=== PATIENT | male | born 1935 | race Caucasian/White ===

== ENCOUNTER 2016-06-12 08:55 | Outpatient (RCR) | payer MEDICARE, OTHER ==
[~2016-06-12 08:55] MED LIST: ACHD5005 PO; ALBU8.5H2 IH; AMIO200T10 PO; AMLO10TA82 PO; ASP81CT PO; ASPI-983 PO; ATOR40TA PO; ATOR40TA70 PO; BNZ40T PO; CALC1TAB PO; CITA10SO4 PO; CITA10TA70 PO; CLD600T PO; COUMADIN; DABI150C2 PO; DCC240C PO; DEXL60CA5 PO; DILT180C PO; DILT240C PO; DOCU-143 PO; DOCU100C PO; DOXY100C2 PO; FERR325C PO; FERR325T24 PO; FURO40TA4 PO; GFN600TCR PO; HCTZ12.5T PO; HYDR-3812 PO; LANS30CA PO; METO100T2 PO; MULT-850 PO; NTR.4SL SL; OMEG1CAP58 PO; OMG1KC PO; PANT40TA3 PO; PITA2TAB2 PO; PNT40TEC PO; POTA10CA43 PO; POTA20TA15 PO; SCR1T1 PO; SPIR25TA3 PO; WARF1TAB10 PO; WARF2.5T10 PO; WARF2.5T8 PO; WRF2.5T PO; WRF5T PO
[2016-06-12 09:17] LABS: BASOPHILS % (AUTO) 0 % (0-10); EOSINOPHILS # (AUTO) 0.2 10^3/uL (0.0-0.3); EOSINOPHILS % (AUTO) 4 % (0-10); LYMPHOCYTES % (AUTO) 18 % (12-44); MEAN CORPUSCULAR HEMOGLOBIN 32 PG (25-34); MEAN CORPUSCULAR HGB CONC 34 G/DL (32-36); MEAN CORPUSCULAR VOLUME 94 FL (80-99); MEAN PLATELET VOLUME 11.9 FL (7.4-10.4); MONOCYTES # (AUTO) 0.8 X 10^3 (0.0-1.0); MONOCYTES % (AUTO) 14 % (0-12); NEUTROPHILS # (AUTO) 3.5 X 10^3 (1.8-7.8); NEUTROPHILS % (AUTO) 64 % (42-75); PLATELET COUNT 110 10^3/uL (130-400); RED BLOOD COUNT 4.19 10^6/uL (4.35-5.85); RED CELL DISTRIBUTION WIDTH 14.5 % (10.0-14.5); WHITE BLOOD COUNT 5.4 10^3/uL (4.3-11.0)
[2016-06-12 10:01] LABS: BILIRUBIN,TOTAL 1.3 MG/DL (0.1-1.0); CALCIUM 9.5 MG/DL (8.5-10.1); CREATININE SERUM 1.42 MG/DL (0.60-1.30); TOTAL PROTEIN 6.6 G/DL (6.4-8.2)
[2016-06-12 12:09] LABS: %SAT TOTAL IRON BINDING CAPIC 47 % (15-50); TIBC 297 ug/dL (280-380)
[2016-06-13 06:48] LABS: UIBC 157 ug/dL (55-450)
[2016-06-13 06:49] LABS: FERRITIN 197 ng/mL (25-300)
== END 2016-09-10 | disposition home or self-care (01) ==
LOC: ONC 08:55
PROVIDERS: ATTEND Internal Medicine Hematology & Oncology
DX: D69.6 Thrombocytopenia, unspecified (principal); D50.9 Iron deficiency anemia, unspecified; I12.9 Hypertensive chronic kidney disease with stage 1 through stage 4 chronic kidney disease, or unspecified chronic kidney disease; N18.9 Chronic kidney disease, unspecified; I25.10 Atherosclerotic heart disease of native coronary artery without angina pectoris; E78.5 Hyperlipidemia, unspecified; I48.91 Unspecified atrial fibrillation; Z79.01 Long term (current) use of anticoagulants; Z79.899 Other long term (current) drug therapy
CPT/HCPCS: 36415; 80053; 82728; 83540; 83615; 85025; 99213

== ENCOUNTER 2016-12-12 13:35 | Outpatient (RCR) | payer OTHER, MEDICARE ==
[2016-10-15 11:33] LABS: INR 2.1 (0.8-1.4); PROTHROMBIN TIME PATIENT 23.2 SEC (12.2-14.7)
[2016-11-12 12:40] LABS: INR 2.3 (0.8-1.4); PROTHROMBIN TIME PATIENT 25.3 SEC (12.2-14.7)
[2016-12-12 13:52] LABS: INR 2.6 (0.8-1.4); PROTHROMBIN TIME PATIENT 27.9 SEC (12.2-14.7)
== END 2017-01-13 | disposition home or self-care (01) ==
LOC: LAB 13:35
PROVIDERS: ATTEND Internal Medicine Cardiovascular Disease
DX: I48.91 Unspecified atrial fibrillation (principal); Z79.01 Long term (current) use of anticoagulants
CPT/HCPCS: 36415; 85610

== ENCOUNTER 2017-02-12 10:43 | Outpatient (RCR) | payer OTHER, MEDICARE ==
[2016-12-10 08:48] LABS: BASOPHILS % (AUTO) 0 % (0-10); EOSINOPHILS # (AUTO) 0.2 10^3/uL (0.0-0.3); EOSINOPHILS % (AUTO) 3 % (0-10); LYMPHOCYTES # (AUTO) 1.1 X 10^3 (1.0-4.0); LYMPHOCYTES % (AUTO) 18 % (12-44); MEAN CORPUSCULAR HEMOGLOBIN 32 PG (25-34); MEAN CORPUSCULAR HGB CONC 34 G/DL (32-36); MEAN CORPUSCULAR VOLUME 96 FL (80-99); MEAN PLATELET VOLUME 11.5 FL (7.4-10.4); MONOCYTES # (AUTO) 0.8 X 10^3 (0.0-1.0); MONOCYTES % (AUTO) 14 % (0-12); NEUTROPHILS # (AUTO) 3.8 X 10^3 (1.8-7.8); NEUTROPHILS % (AUTO) 64 % (42-75); PLATELET COUNT 101 10^3/uL (130-400); RED BLOOD COUNT 4.05 10^6/uL (4.35-5.85); RED CELL DISTRIBUTION WIDTH 13.5 % (10.0-14.5); WHITE BLOOD COUNT 5.8 10^3/uL (4.3-11.0)
[2017-01-14 14:38] LABS: INR 2.2 (0.8-1.4); PROTHROMBIN TIME PATIENT 23.9 SEC (12.2-14.7)
[2017-02-12 11:03] LABS: INR 2.3 (0.8-1.4); PROTHROMBIN TIME PATIENT 24.7 SEC (12.2-14.7)
== END 2017-03-10 | disposition home or self-care (01) ==
LOC: LAB 10:43
PROVIDERS: ATTEND Internal Medicine Hematology & Oncology
DX: D69.6 Thrombocytopenia, unspecified (principal); D50.9 Iron deficiency anemia, unspecified; I12.9 Hypertensive chronic kidney disease with stage 1 through stage 4 chronic kidney disease, or unspecified chronic kidney disease; N18.9 Chronic kidney disease, unspecified; I25.10 Atherosclerotic heart disease of native coronary artery without angina pectoris; E78.5 Hyperlipidemia, unspecified; I48.91 Unspecified atrial fibrillation; Z79.01 Long term (current) use of anticoagulants; Z79.899 Other long term (current) drug therapy
CPT/HCPCS: 36415; 85025; 85610

== ENCOUNTER 2017-05-18 08:27 | Outpatient (RCR) | payer MEDICARE, OTHER ==
[2017-03-16 12:34] LABS: INR 2.5 (0.8-1.4); PROTHROMBIN TIME PATIENT 26.8 SEC (12.2-14.7)
[2017-04-15 12:40] LABS: INR 1.9 (0.8-1.4); PROTHROMBIN TIME PATIENT 21.9 SEC (12.2-14.7)
[2017-05-18 08:51] LABS: INR 2.2 (0.8-1.4); PROTHROMBIN TIME PATIENT 24.3 SEC (12.2-14.7)
== END 2017-05-30 | disposition home or self-care (01) ==
LOC: LAB 08:27
PROVIDERS: ATTEND Nurse Practitioner Family
DX: I48.0 Paroxysmal atrial fibrillation (principal); Z79.01 Long term (current) use of anticoagulants
CPT/HCPCS: 36415; 85610

== ENCOUNTER → 2017-05-18 | Outpatient (CLI) | payer MEDICARE, OTHER ==
[2017-05-18 09:09] LABS: BASOPHILS % (AUTO) 0 % (0-10); EOSINOPHILS # (AUTO) 0.2 10^3/uL (0.0-0.3); EOSINOPHILS % (AUTO) 3 % (0-10); LYMPHOCYTES # (AUTO) 1.1 X 10^3 (1.0-4.0); LYMPHOCYTES % (AUTO) 18 % (12-44); MEAN CORPUSCULAR HEMOGLOBIN 33 PG (25-34); MEAN CORPUSCULAR HGB CONC 34 G/DL (32-36); MEAN CORPUSCULAR VOLUME 97 FL (80-99); MEAN PLATELET VOLUME 12.2 FL (7.4-10.4); MONOCYTES # (AUTO) 0.7 X 10^3 (0.0-1.0); MONOCYTES % (AUTO) 12 % (0-12); NEUTROPHILS % (AUTO) 67 % (42-75); PLATELET COUNT 105 10^3/uL (130-400); RED BLOOD COUNT 4.12 10^6/uL (4.35-5.85); RED CELL DISTRIBUTION WIDTH 13.3 % (10.0-14.5)
[2017-05-18 09:22] LABS: ALBUMIN 3.9 GM/DL (3.2-4.5); BILIRUBIN,TOTAL 0.9 MG/DL (0.1-1.0); CREATININE SERUM 1.19 MG/DL (0.60-1.30); MAGNESIUM 2.2 MG/DL (1.8-2.4); POTASSIUM 4.3 MMOL/L (3.6-5.0); TOTAL PROTEIN 6.7 GM/DL (6.4-8.2)
== END ==
LOC: LAB 08:52
PROVIDERS: ATTEND Internal Medicine Cardiovascular Disease
DX: E78.4 Other hyperlipidemia (principal); I65.23 Occlusion and stenosis of bilateral carotid arteries; I12.9 Hypertensive chronic kidney disease with stage 1 through stage 4 chronic kidney disease, or unspecified chronic kidney disease; N18.2 Chronic kidney disease, stage 2 (mild); I48.0 Paroxysmal atrial fibrillation; I49.5 Sick sinus syndrome; Z79.01 Long term (current) use of anticoagulants
CPT/HCPCS: 36415; 80053; 80061; 83735; 85025

== ENCOUNTER 2017-07-15 11:44 | Outpatient (RCR) | payer MEDICARE, OTHER ==
[2017-06-18 09:44] LABS: BASOPHILS % (AUTO) 0 % (0-10); EOSINOPHILS # (AUTO) 0.2 10^3/uL (0.0-0.3); EOSINOPHILS % (AUTO) 3 % (0-10); HEMATOCRIT 40 % (40-54); HEMOGLOBIN 13.3 G/DL (13.3-17.7); LYMPHOCYTES # (AUTO) 1.1 X 10^3 (1.0-4.0); LYMPHOCYTES % (AUTO) 20 % (12-44); MEAN CORPUSCULAR HEMOGLOBIN 33 PG (25-34); MEAN CORPUSCULAR HGB CONC 34 G/DL (32-36); MEAN CORPUSCULAR VOLUME 97 FL (80-99); MEAN PLATELET VOLUME 12.7 FL (7.4-10.4); MONOCYTES # (AUTO) 0.7 X 10^3 (0.0-1.0); MONOCYTES % (AUTO) 12 % (0-12); NEUTROPHILS # (AUTO) 3.7 X 10^3 (1.8-7.8); NEUTROPHILS % (AUTO) 65 % (42-75); PLATELET COUNT 124 10^3/uL (130-400); RED BLOOD COUNT 4.08 10^6/uL (4.35-5.85); RED CELL DISTRIBUTION WIDTH 13.2 % (10.0-14.5); WHITE BLOOD COUNT 5.7 10^3/uL (4.3-11.0)
[2017-06-18 10:01] LABS: CALCIUM 9.6 MG/DL (8.5-10.1); CREATININE SERUM 1.25 MG/DL (0.60-1.30); POTASSIUM 4.5 MMOL/L (3.6-5.0); TOTAL PROTEIN 7.4 GM/DL (6.4-8.2)
[~2017-07-15 11:44] MED LIST changes: -HYDR-3812 PO; +METO100T12 PO
[2017-07-15 12:03] LABS: INR 1.8 (0.8-1.4); PROTHROMBIN TIME PATIENT 20.8 SEC (12.2-14.7)
== END 2017-09-16 | disposition home or self-care (01) ==
LOC: ONC 11:44
PROVIDERS: ATTEND Internal Medicine Hematology & Oncology
DX: D69.6 Thrombocytopenia, unspecified (principal); D50.9 Iron deficiency anemia, unspecified; I12.9 Hypertensive chronic kidney disease with stage 1 through stage 4 chronic kidney disease, or unspecified chronic kidney disease; N18.9 Chronic kidney disease, unspecified; I25.10 Atherosclerotic heart disease of native coronary artery without angina pectoris; E78.5 Hyperlipidemia, unspecified; I48.91 Unspecified atrial fibrillation; Z79.01 Long term (current) use of anticoagulants; Z79.899 Other long term (current) drug therapy
CPT/HCPCS: 36415; 80053; 85025; 85610; 99213

== ENCOUNTER 2017-08-14 12:26 | Outpatient (RCR) | payer MEDICARE, OTHER ==
[2017-06-15 12:10] LABS: INR 2.6 (0.8-1.4); PROTHROMBIN TIME PATIENT 27.7 SEC (12.2-14.7)
[2017-08-14 13:07] LABS: INR 2.4 (0.8-1.4); PROTHROMBIN TIME PATIENT 26.3 SEC (12.2-14.7)
== END 2017-09-13 | disposition home or self-care (01) ==
LOC: LAB 12:26
PROVIDERS: ATTEND Nurse Practitioner Family
DX: I48.91 Unspecified atrial fibrillation (principal); Z79.01 Long term (current) use of anticoagulants
CPT/HCPCS: 36415; 85610

== ENCOUNTER 2017-11-13 12:34 | Outpatient (RCR) | payer MEDICARE, OTHER ==
[2017-09-16 15:05] LABS: INR 2.2 (0.8-1.4); PROTHROMBIN TIME PATIENT 24.4 SEC (12.2-14.7)
[2017-10-15 15:01] LABS: INR 2.3 (0.8-1.4); PROTHROMBIN TIME PATIENT 25.4 SEC (12.2-14.7)
[2017-10-22 11:09] LABS: INR 2.4 (0.8-1.4); PROTHROMBIN TIME PATIENT 26.3 SEC (12.2-14.7)
[~2017-11-13 12:34] MED LIST changes: +SPIR25TA5 PO
[2017-11-13 12:59] LABS: INR 1.9 (0.8-1.4); PROTHROMBIN TIME PATIENT 21.9 SEC (12.2-14.7)
== END 2017-12-13 | disposition home or self-care (01) ==
LOC: LAB 12:34
PROVIDERS: ATTEND Nurse Practitioner Family
DX: I48.91 Unspecified atrial fibrillation (principal); Z79.01 Long term (current) use of anticoagulants
CPT/HCPCS: 36415; 85610

== ENCOUNTER → 2017-11-13 | Outpatient (CLI) | payer MEDICARE, OTHER ==
[2017-11-13 12:50] LABS: BASOPHILS % (AUTO) 0 % (0-10); EOSINOPHILS # (AUTO) 0.2 10^3/uL (0.0-0.3); EOSINOPHILS % (AUTO) 3 % (0-10); HEMATOCRIT 40 % (40-54); HEMOGLOBIN 13.6 G/DL (13.3-17.7); LYMPHOCYTES # (AUTO) 1.2 X 10^3 (1.0-4.0); LYMPHOCYTES % (AUTO) 19 % (12-44); MEAN CORPUSCULAR HEMOGLOBIN 33 PG (25-34); MEAN CORPUSCULAR HGB CONC 34 G/DL (32-36); MEAN CORPUSCULAR VOLUME 96 FL (80-99); MEAN PLATELET VOLUME 12.1 FL (7.4-10.4); MONOCYTES # (AUTO) 0.8 X 10^3 (0.0-1.0); MONOCYTES % (AUTO) 13 % (0-12); NEUTROPHILS % (AUTO) 65 % (42-75); PLATELET COUNT 124 10^3/uL (130-400); RED BLOOD COUNT 4.16 10^6/uL (4.35-5.85); RED CELL DISTRIBUTION WIDTH 12.7 % (10.0-14.5); WHITE BLOOD COUNT 6.3 10^3/uL (4.3-11.0)
[2017-11-13 13:07] LABS: ALBUMIN 4.2 GM/DL (3.2-4.5); BILIRUBIN,TOTAL 1.4 MG/DL (0.1-1.0); CALCIUM 9.9 MG/DL (8.5-10.1); CREATININE SERUM 1.48 MG/DL (0.60-1.30); MAGNESIUM 1.6 MG/DL (1.8-2.4); POTASSIUM 4.4 MMOL/L (3.6-5.0); TOTAL PROTEIN 7.4 GM/DL (6.4-8.2)
[2017-11-13 13:26] LABS: ERYTHROCYTE SEDIMENTATION RATE 16 MM/HR (0-30)
== END ==
LOC: LAB 12:24
PROVIDERS: ATTEND Internal Medicine Cardiovascular Disease
DX: I25.10 Atherosclerotic heart disease of native coronary artery without angina pectoris (principal); I65.29 Occlusion and stenosis of unspecified carotid artery; I12.9 Hypertensive chronic kidney disease with stage 1 through stage 4 chronic kidney disease, or unspecified chronic kidney disease; N18.2 Chronic kidney disease, stage 2 (mild); E78.5 Hyperlipidemia, unspecified; E66.8 Other obesity; I48.0 Paroxysmal atrial fibrillation; Z95.0 Presence of cardiac pacemaker; Z79.01 Long term (current) use of anticoagulants
CPT/HCPCS: 36415; 80053; 83735; 84443; 85025; 85652

== ENCOUNTER → 2017-11-24 | Outpatient (CLI) | payer MEDICARE, OTHER ==
[~2017-11-24] MED LIST changes: -SPIR25TA5 PO
[2017-11-24 14:54] LABS: PROTHROMBIN TIME PATIENT 22.9 SEC (12.2-14.7)
[2017-11-24 14:57] LABS: CALCIUM 9.6 MG/DL (8.5-10.1); CREATININE SERUM 1.39 MG/DL (0.60-1.30); MAGNESIUM 2.3 MG/DL (1.8-2.4); POTASSIUM 4.5 MMOL/L (3.6-5.0)
== END ==
LOC: LAB 14:15
PROVIDERS: ATTEND Internal Medicine Cardiovascular Disease
DX: I12.9 Hypertensive chronic kidney disease with stage 1 through stage 4 chronic kidney disease, or unspecified chronic kidney disease (principal); N18.2 Chronic kidney disease, stage 2 (mild); I48.0 Paroxysmal atrial fibrillation; Z79.01 Long term (current) use of anticoagulants
CPT/HCPCS: 36415; 80048; 83735; 85610

== ENCOUNTER 2017-12-28 11:46 | Outpatient (RCR) | payer MEDICARE, OTHER | END 2017-12-30 | disposition home or self-care (01) | LOC: CR3 11:46 | PROVIDERS: ATTEND Family Medicine | DX: Z29.8 Encounter for other specified prophylactic measures (principal) ==

== ENCOUNTER 2018-01-29 17:38 | Outpatient (RCR) | payer MEDICARE, OTHER | END 2018-01-31 | disposition home or self-care (01) | LOC: CR3 17:38 | PROVIDERS: ATTEND Family Medicine | DX: Z29.8 Encounter for other specified prophylactic measures (principal) ==

== ENCOUNTER 2018-02-12 11:07 | Outpatient (RCR) | payer MEDICARE, OTHER ==
[2017-12-14 11:50] LABS: INR 1.9 (0.8-1.4); PROTHROMBIN TIME PATIENT 22.1 SEC (12.2-14.7)
[2018-01-13 11:21] LABS: INR 2.1 (0.8-1.4); PROTHROMBIN TIME PATIENT 23.2 SEC (12.2-14.7)
[~2018-02-12 11:07] MED LIST changes: +SPIR25TA5 PO
[2018-02-12 11:28] LABS: INR 2.2 (0.8-1.4); PROTHROMBIN TIME PATIENT 24.7 SEC (12.2-14.7)
== END 2018-03-14 | disposition home or self-care (01) ==
LOC: LAB 11:07
PROVIDERS: ATTEND Nurse Practitioner Family
DX: Z51.81 Encounter for therapeutic drug level monitoring (principal); I48.91 Unspecified atrial fibrillation; Z79.01 Long term (current) use of anticoagulants
CPT/HCPCS: 36415; 85610

== ENCOUNTER 2018-03-01 10:00 | Outpatient (RCR) | payer MEDICARE, OTHER | END 2018-03-03 | disposition home or self-care (01) | LOC: CR3 10:00 | PROVIDERS: ATTEND Family Medicine | DX: Z29.8 Encounter for other specified prophylactic measures (principal) ==

== ENCOUNTER 2018-03-31 10:44 | Outpatient (RCR) | payer MEDICARE, OTHER | END 2018-04-04 | disposition home or self-care (01) | LOC: CR3 10:44 | PROVIDERS: ATTEND Family Medicine | DX: Z29.8 Encounter for other specified prophylactic measures (principal) ==

== ENCOUNTER → 2018-05-05 | Outpatient (RCR) | payer MEDICARE, OTHER | END | disposition home or self-care (01) | LOC: CR3 04-05 12:11 | PROVIDERS: ATTEND Family Medicine | DX: Z29.8 Encounter for other specified prophylactic measures (principal) ==

== ENCOUNTER → 2018-05-25 | Outpatient (CLI) | payer MEDICARE, OTHER ==
[~2018-05-25] VITALS: Ht 172.7 cm; Wt 90.3 kg
[~2018-05-25] MED LIST changes: +CATHETER FLUSH 10 ML SYR IV PRN; +REGADENOSON 0.4 MG/5 ML SYR (LEXISCAN) IV ONE
[2018-05-25 09:11] VITALS: BP 94/49
[2018-05-25 09:30] LABS: BASOPHILS % (AUTO) 0 % (0-10); EOSINOPHILS # (AUTO) 0.2 10^3/uL (0.0-0.3); EOSINOPHILS % (AUTO) 4 % (0-10); HEMATOCRIT 38 % (40-54); HEMOGLOBIN 12.9 G/DL (13.3-17.7); LYMPHOCYTES # (AUTO) 1.1 X 10^3 (1.0-4.0); LYMPHOCYTES % (AUTO) 21 % (12-44); MEAN CORPUSCULAR HEMOGLOBIN 33 PG (25-34); MEAN CORPUSCULAR HGB CONC 34 G/DL (32-36); MEAN CORPUSCULAR VOLUME 97 FL (80-99); MEAN PLATELET VOLUME 11.9 FL (7.4-10.4); MONOCYTES # (AUTO) 0.7 X 10^3 (0.0-1.0); MONOCYTES % (AUTO) 14 % (0-12); NEUTROPHILS # (AUTO) 3.1 X 10^3 (1.8-7.8); NEUTROPHILS % (AUTO) 60 % (42-75); PLATELET COUNT 106 10^3/uL (130-400); RED BLOOD COUNT 3.93 10^6/uL (4.35-5.85); RED CELL DISTRIBUTION WIDTH 13.2 % (10.0-14.5); WHITE BLOOD COUNT 5.2 10^3/uL (4.3-11.0)
[2018-05-25 09:50] LABS: BILIRUBIN,TOTAL 0.9 MG/DL (0.1-1.0); CALCIUM 9.4 MG/DL (8.5-10.1); CREATININE SERUM 1.28 MG/DL (0.60-1.30); MAGNESIUM 2.2 MG/DL (1.8-2.4); POTASSIUM 5.2 MMOL/L (3.6-5.0); TOTAL PROTEIN 6.9 GM/DL (6.4-8.2)
--- NOTE | 2018-05-26 09:25 | STRESS TEST ---
DATE OF SERVICE: 05/25/2018 RESTING AND POST REGADENOSON TECHNETIUM-99M TETROFOSMIN SPECT CT IMAGING ORDERING PHYSICIAN: Dr. Todd. PRIMARY PHYSICIAN: Dr. Perez. CLINICAL DIAGNOSIS: Shortness of breath, chronic atrial fibrllation. Baseline images were carried out after injection of 10.19 mCi of technetium-99m Tetrofosmin. This was followed by 0.4 mg regadenoson and 28.5 mCi of technetium-99m Tetrofosmin. The electrocardiogram showed atrial fibrillation with a paced ventricular rhythm. Intermittently, [place] rhythm was seen. The patient tolerated the procedure well. Review of images at rest and following stress does not indicate any distinct perfusion defects consistent with significant myocardial ischemia or infarction. Gated images show no significant regional wall motion abnormality. Global left ventricular systolic function appears to be at the lower limit of normal. Left ventricular ejection fraction is calculated to be 47%. Left ventricular end diastolic volume is 99 mL. TID is absent (1.09). CONCLUSIONS: 1. No evidence of significant myocardial ischemia or infarction on this study. 2. Normal regional wall motion. 3. Global left ventricular systolic function is at the lower limit of normal with a calculated ejection fraction of 47%. Job ID: [id number] DocumentID: [id number] Dictated Date: 05/26/2018 08:43:27 Injection Machine Operator Date: 05/26/2018 09:24:55 Dictated By: AGNIESZKA TODD MD, MA, FACP, FACC,
== END ==
LOC: CARD 07:24
PROVIDERS: ATTEND Internal Medicine Cardiovascular Disease
DX: I77.89 Other specified disorders of arteries and arterioles (principal); I48.2 Chronic atrial fibrillation; R06.02 Shortness of breath; I25.10 Atherosclerotic heart disease of native coronary artery without angina pectoris; I10 Essential (primary) hypertension; Z79.01 Long term (current) use of anticoagulants
CPT/HCPCS: 36415; 78452; 80053; 80061; 83735; 85025; 93017

== ENCOUNTER → 2018-06-09 | Outpatient (RCR) | payer MEDICARE, OTHER ==
[~2018-06-09] MED LIST changes: -CATHETER FLUSH 10 ML SYR IV PRN; -REGADENOSON 0.4 MG/5 ML SYR (LEXISCAN) IV ONE
== END | disposition home or self-care (01) ==
LOC: CR3 05-10 13:00
PROVIDERS: ATTEND Family Medicine
DX: Z29.8 Encounter for other specified prophylactic measures (principal)

== ENCOUNTER 2018-06-10 09:26 | Outpatient (RCR) | payer MEDICARE, OTHER ==
[2018-03-16 15:55] LABS: INR 2.2 (0.8-1.4); PROTHROMBIN TIME PATIENT 24.6 SEC (12.2-14.7)
[2018-04-13 16:33] LABS: INR 2.1 (0.8-1.4); PROTHROMBIN TIME PATIENT 23.8 SEC (12.2-14.7)
[2018-05-17 14:32] LABS: INR 2.4 (0.8-1.4); PROTHROMBIN TIME PATIENT 26.3 SEC (12.2-14.7)
[2018-06-10 09:59] LABS: INR 2.1 (0.8-1.4); PROTHROMBIN TIME PATIENT 23.5 SEC (12.2-14.7)
== END 2018-06-14 | disposition home or self-care (01) ==
LOC: LAB 09:26
PROVIDERS: ATTEND Nurse Practitioner Family
DX: Z51.81 Encounter for therapeutic drug level monitoring (principal); I48.91 Unspecified atrial fibrillation; Z79.01 Long term (current) use of anticoagulants
CPT/HCPCS: 36415; 85610

== ENCOUNTER → 2018-06-10 | Outpatient (CLI) | payer MEDICARE, OTHER ==
[2018-06-10 10:06] LABS: CALCIUM 9.6 MG/DL (8.5-10.1); CREATININE SERUM 1.29 MG/DL (0.60-1.30); POTASSIUM 4.2 MMOL/L (3.6-5.0)
== END ==
LOC: CARD 08:41
PROVIDERS: ATTEND Internal Medicine Cardiovascular Disease
DX: E87.5 Hyperkalemia (principal); R06.02 Shortness of breath; I48.2 Chronic atrial fibrillation; I25.10 Atherosclerotic heart disease of native coronary artery without angina pectoris; I10 Essential (primary) hypertension; I08.3 Combined rheumatic disorders of mitral, aortic and tricuspid valves; Z79.01 Long term (current) use of anticoagulants
CPT/HCPCS: 36415; 80048; 93306

== ENCOUNTER → 2018-06-15 | Emergency (ER) | payer MEDICARE, OTHER ==
[~2018-06-15] VITALS: Ht 172.7 cm; Wt 90.3 kg
[~2018-06-15] MED LIST changes: +TETANUS,DIPTH,PERTUSS P/F (BOOSTRIX) 0.5 ML VIAL IM STA
--- OUTSIDE RECORDS SUMMARY | 2018-06-15 18:45 | XMS REPORT ---
Author Author SEB BUSTILLO [facility] Address [address] [place] [address] Care Team Providers Care Pump Tester Name Role Phone IWONA SEB Unavailable PROBLEMS Type Condition ICD9-CM Code SRR94-[id number] Code Onset Dates Condition Status SNOMED Code Problem Need for prophylactic vaccination and inoculation, Influenza V04.81 Active [id number] ALLERGIES No Information ENCOUNTERS Encounter Location Date Diagnosis [facility] [id number] [place] [address] [phone] May, Encounter for immunization Z23 [facility] [id number] [place] [address] [phone] Jul, Encounter for immunization 23 [facility] IN [facility] [id number] [place] [address] [phone] May, Encounter for immunization 23 [facility] [id number] [place] [address] [phone] Jul, [facility] [id number] [place] [address] [phone] Jul, [facility] [id number] [place] [address] [phone] May, [facility] [id number] [place] [address] [phone] May, [facility] [id number] [place] [address] [phone] May, [facility] [id number] [place] [address] [phone] May, IMMUNIZATIONS Vaccine Route Administration Date Status FLULAVAL QUAD 0.5ML (6 MO & UP) 2018 IM Intramuscular Jun 01, 2018 Administered SOCIAL HISTORY Never Assessed REASON FOR VISIT FLu shot PLAN OF CARE VITAL SIGNS MEDICATIONS Unknown Medications RESULTS No Results PROCEDURES Procedure Date Ordered Result Body Site FLULAVAL QUAD 0.5ML (6 MO AND UP) 2017Jun 01, 2018 FLULAVAL QUAD 0.5ML (6 MO & UP) 2017Jun 01, 2018 SINGLE IMMUNIZATION ADMIN Jun 01, 2018 INSTRUCTIONS MEDICATIONS ADMINISTERED No Known Medications
--- OUTSIDE RECORDS SUMMARY | 2018-06-15 18:45 | XMS REPORT ---
Author Author BEVERLEY GRIMES Organization [employer] Address Unknown Phone Unavailable Care Team Providers Care Striper Spray Gun Name Role Phone BEVERLEY GRIMES CP Unavailable Allergies No Known Allergies Problems Problem Type Condition Code Onset Dates Condition Status Assessment Encounter for immunization Z23 Active Problem Need for prophylactic vaccination and inoculation, Influenza V04.81 Active Medications No Known Medications Procedures Procedure Coding System Code Date SINGLE IMMUNIZATION ADMIN CPT-4 59655 Jun 14, 2016 FLUARIX QUAD P-FREE 3 AND UP .50 2015 CPT-4 54202 Jun 14, 2016 Results No Known Results Immunizations Vaccine Administration Date FLUARIX QUAD P-FREE 3 AND UP .50 2015Jun 14, 2016 Summary Purpose [employer] Submission
--- OUTSIDE RECORDS SUMMARY | 2018-06-15 18:45 | XMS REPORT ---
Author Author SEB BUSTILLO [facility] Address [address] [place] [address] Care Team Providers Care Paperboard Machine Operator Name Role Phone IWONA SEB Unavailable PROBLEMS Type Condition ICD9-CM Code SRK13-TI Code Onset Dates Condition Status SNOMED Code Problem Need for prophylactic vaccination and inoculation, Influenza V04.81 Active [id number] ALLERGIES No Information ENCOUNTERS Encounter Location Date Diagnosis [facility] [id number] [place] [address] [phone] Jul, Encounter for immunization Z23 [facility] IN [facility] [id number] [place] [address] [phone] May, Encounter for immunization Z23 [facility] [id number] [place] [address] [phone] Jul, [facility] [id number] [place] [address] [phone] Jul, [facility] [id number] [place] [address] [phone] May, [facility] [id number] [place] [address] [phone] May, [facility] [id number] [place] [address] [phone] May, [facility] [id number] [place] [address] [phone] May, IMMUNIZATIONS Vaccine Route Administration Date Status FLUARIX QUAD (3 AND UP) 2017 IM Intramuscular Jul 16, 2017 Administered SOCIAL HISTORY Never Assessed REASON FOR VISIT Flu shot---[place],[facility] PLAN OF CARE VITAL SIGNS MEDICATIONS Unknown Medications RESULTS No Results PROCEDURES Procedure Date Ordered Result Body Site FLUARIX QUAD (3 AND UP) 2017 Jul 16, 2017 SINGLE IMMUNIZATION ADMIN Jul 16, 2017 INSTRUCTIONS MEDICATIONS ADMINISTERED No Known Medications
--- OUTSIDE RECORDS SUMMARY | 2018-06-15 18:52 | XMS REPORT | Continuity of Care Document ---
Author Author [facility] of [facility] of [facility] Address Unknown Phone Unavailable Allergies Active Description Code Type Severity Reaction Onset Reported/Identified Relationship to Patient Clinical Status Yes No Known Drug Allergies [id number] Drug Allergy Unknown N/A 11/18/2012 Medications There is no data. Problems Date Dx Coded Attending Type Code Diagnosis Diagnosed By 09/11/2011 Ot 401.9 09/11/2011 Ot 427.31 09/11/2011 Ot V15.82 10/20/2011 Ot 401.9 10/20/2011 Ot 414.01 10/20/2011 Ot 427.31 10/20/2011 Ot V58.66 10/20/2011 Ot V58.69 11/07/2011 Ot 414.00 11/07/2011 Ot 427.31 11/07/2011 Ot 429.3 11/07/2011 Ot 511.9 11/07/2011 Ot 780.79 11/07/2011 Ot V45.81 12/01/2011 Ot 424.0 MITRAL VALVE DISORDER 12/01/2011 Ot 427.31 ATRIAL FIBRILLATION 12/01/2011 Ot 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 12/01/2011 Ot V58.61 ANTICOAGULANTS,LT,CURRENT USE 12/01/2011 Ot V58.66 LONG-TERM ( CURRENT) USE OF ASPIRIN 12/01/2011 Ot V58.69 OTH MED,LT, CURRENT USE 12/28/2011 Ot 401.9 HYPERTENSION NOS 12/28/2011 Ot 977.8 POISON- MEDICINAL AGT NEC 12/28/2011 Ot E849.0 ACCIDENT IN HOME 12/28/2011 Ot E858.8 ACC POISONING-DRUG NEC 12/28/2011 Ot V58.69 OTH MED,LT, CURRENT USE 03/25/2012 Ot 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 03/25/2012 Ot V57.89 REHABILITATION PROC NEC 03/26/2012 Ot 287.5 THROMBOCYTOPENIA NOS 03/26/2012 Ot 401.9 HYPERTENSION NOS 03/26/2012 Ot 414.00 CORON ATHEROSCLER NOS TYPE VESSEL, NATIV 03/26/2012 Ot 427.31 ATRIAL FIBRILLATION 03/26/2012 Ot 427.32 ATRIAL FLUTTER 03/26/2012 Ot 427.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 03/26/2012 Ot 440.9 ATHEROSCLEROSIS NOS 03/26/2012 Ot 486 PNEUMONIA, ORGANISM NOS 03/26/2012 Ot V15.82 HISTORY OF TOBACCO USE 03/26/2012 Ot 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 04/26/2012 Ot 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 04/26/2012 Ot V57.89 REHABILITATION PROC NEC 06/30/2012 Ot 427.31 ATRIAL FIBRILLATION 06/30/2012 Ot V58.61 ANTICOAGULANTS,LT,CURRENT USE 08/18/2012 Ot 719.41 JOINT PAIN- SHLDER 08/18/2012 Ot V57.1 PHYSICAL THERAPY NEC 10/24/2012 Ot 427.31 ATRIAL FIBRILLATION 10/24/2012 Ot V58.61 ANTICOAGULANTS,LT,CURRENT USE 11/23/2012 Ot 272.0 PURE HYPERCHOLESTEROLEM 11/23/2012 Ot 401.9 HYPERTENSION NOS 11/23/2012 Ot 414.00 CORON ATHEROSCLER NOS TYPE VESSEL, NATIV 11/23/2012 Ot 427.31 ATRIAL FIBRILLATION 11/23/2012 Ot 427.89 CARDIAC DYSRHYTHMIAS NEC 11/23/2012 Ot 511.9 PLEURAL EFFUSION NOS 11/23/2012 Ot 530.11 REFLUX ESOPHAGITIS 11/23/2012 Ot 530.81 ESOPHAGEAL REFLUX 11/23/2012 Ot 535.40 OTH SPECIFIED GASTRITIS,W/O MENTION OF H 11/23/2012 Ot 553.3 DIAPHRAGMATIC HERNIA 11/23/2012 Ot 562.10 DIVERTICULOSIS COLON (W/O MENT OF HEMORR 11/23/2012 Ot 574.21 CHOLELITHIAS NOS W OBSTR 11/23/2012 Ot 789.59 OTHER ASCITES 11/23/2012 Ot V11.3 HX OF ALCOHOLISM 11/23/2012 Ot V45.01 CARDIAC PACEMAKER IN SITU 11/23/2012 Ot 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 02/03/2013 Ot 427.31 ATRIAL FIBRILLATION 02/03/2013 Ot V58.61 ANTICOAGULANTS,LT,CURRENT USE 05/10/2013 BAIWILLIAMS CANO L METALLURGICAL ENGINEERING TECHNICIAN Ot 427.31 ATRIAL FIBRILLATION 05/10/2013 WILLIAMS CHAVEZ L METALLURGICAL ENGINEERING TECHNICIAN Ot V58.61 ANTICOAGULANTS,LT,CURRENT USE 06/08/2013 BUSTILLO DO, SEB K V04.81 FLU SHOT 06/24/2013 ROGELIO CORTES MD Ot 272.0 PURE HYPERCHOLESTEROLEM 06/24/2013 ROGELIO CORTES MD Ot 285.9 ANEMIA NOS 06/24/2013 ROGELIO CORTES MD Ot 287.5 THROMBOCYTOPENIA NOS 06/24/2013 ROGELIO CORTES MD Ot 403.90 HYPTNSV CHR KID DIS, UNSPEC, W CHR KD ST 06/24/2013 ROGELIO CORTES MD Ot 414.00 CORON ATHEROSCLER NOS TYPE VESSEL, NATIV 06/24/2013 ROGELIO CORTES MD Ot 427.31 ATRIAL FIBRILLATION 06/24/2013 ROGELIO CORTES MD Ot 585.9 CHRONIC KIDNEY DISEASE, UNSPECIFIED 06/24/2013 ROGELIO CORTES MD Ot 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 06/24/2013 ROGELIO CORTES MD Ot V58.61 ANTICOAGULANTS,LT,CURRENT USE 06/24/2013 ROGELIO CORTES MD Ot V58.69 OTH MED,LT,CURRENT USE 07/05/2013 CHAR SHIRLEY FACC, AGNIESZKA FACP CCDS Ot 272.4 HYPERLIPIDEMIA NEC/NOS 07/05/2013 AGNIESZKA PARDO MD, FACC FACP CCDS Ot 401.9 HYPERTENSION NOS 07/05/2013 CHAR SHIRLEY FACC, AGNIESZKA FACP CCDS Ot 414.01 CORONARY ATHEROSCLEROSIS OF [place] CORON 07/05/2013 AGNIESZKA PARDO MD, FACC FACP CCDS Ot 414.2 CHRONIC TOTAL OCCLUSION OF CORONARY [place] 07/05/2013 AGNIESZKA PARDO MD, FACC FACP CCDS Ot 427.31 ATRIAL FIBRILLATION 07/05/2013 CHAR SHIRLEY FACC, AGNIESZKA FACP CCDS Ot 427.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 07/05/2013 CHAR SHIRLEY FACC, ALI FACP CCDS Ot 786.59 CHEST PAIN NEC 07/05/2013 CHAR SHIRLEY FACC, ALI FACP CCDS Ot 794.30 ABN CARDIOVASC STUDY NOS 07/05/2013 CHAR SHIRLEY FACC, AGNIESZKA FACP CCDS Ot V15.82 HISTORY OF TOBACCO USE 07/05/2013 AGNEISZKA PARDO MD, FACC FACP CCDS Ot V45.01 CARDIAC PACEMAKER IN SITU 07/05/2013 AGNIESZKA PARDO MD, FACC FACP CCDS Ot 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 07/05/2013 AGNIESZKA PARDO MD, FACC FACP CCDS Ot V58.61 ANTICOAGULANTS,LT,CURRENT USE 07/05/2013 CHAR SHIRLEY FACC, AGNIESZKA FRIEND CCDS Ot V58.69 OTH MED,LT,CURRENT USE 08/24/2013 WILLIAMS CHAVEZ METALLURGICAL ENGINEERING TECHNICIAN Ot 427.31 ATRIAL FIBRILLATION 08/24/2013 WILLIAMS CHAVEZ L METALLURGICAL ENGINEERING TECHNICIAN Ot V58.61 ANTICOAGULANTS,LT,CURRENT USE 10/11/2013 ROGELIO CORTES MD Ot 272.0 PURE HYPERCHOLESTEROLEM 10/11/2013 ROGELIO CORTES MD Ot 280.9 IRON DEFIC ANEMIA NOS 10/11/2013 ROGELIO CORTES MD Ot 287.5 THROMBOCYTOPENIA NOS 10/11/2013 ROGELIO CORTES MD Ot 403.90 HYPTNSV CHR KID DIS, UNSPEC, W CHR KD ST 10/11/2013 ROGELIO CORTES MD Ot 414.00 CORON ATHEROSCLER NOS TYPE VESSEL, NATIV 10/11/2013 ROGELIO CORTES MD Ot 427.31 ATRIAL FIBRILLATION 10/11/2013 ROGELIO CORTES MD Ot 585.9 CHRONIC KIDNEY DISEASE, UNSPECIFIED 10/11/2013 ROGELIO CORTES MD Ot 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 10/11/2013 ROGELIO CORTES MD Ot V58.61 ANTICOAGULANTS,LT,CURRENT USE 10/11/2013 ROGELIO CORTES MD Ot V58.69 OTH MED,LT,CURRENT USE 11/30/2013 WILLIAMS CHAVEZ METALLURGICAL ENGINEERING TECHNICIAN Ot 427.31 ATRIAL FIBRILLATION 11/30/2013 WILLIAMS CHAVEZ METALLURGICAL ENGINEERING TECHNICIAN Ot V58.61 ANTICOAGULANTS,LT,CURRENT USE 01/04/2014 ROGELIO CORTES MD Ot 272.0 PURE HYPERCHOLESTEROLEM 01/04/2014 ROGELIO CORTES MD Ot 280.9 IRON DEFIC ANEMIA NOS 01/04/2014 ROGELIO CORTES MD Ot 287.5 THROMBOCYTOPENIA NOS 01/04/2014 ROGELIO CORTES MD Ot 403.90 HYPTNSV CHR KID DIS, UNSPEC, W CHR KD ST 01/04/2014 ROGELIO CORTES MD Ot 414.00 CORON ATHEROSCLER NOS TYPE VESSEL, NATIV 01/04/2014 ROGELIO CORTES MD Ot 427.31 ATRIAL FIBRILLATION 01/04/2014 ROGELIO CORTES MD Ot 585.9 CHRONIC KIDNEY DISEASE, UNSPECIFIED 01/04/2014 ROGELIO CORTES MD Ot 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 01/04/2014 ROGELIO CORTES MD Ot V58.61 ANTICOAGULANTS,LT,CURRENT USE 01/04/2014 ROGELIO CORTES MD Ot V58.69 OTH MED,LT,CURRENT USE 03/22/2014 WILLIAMS CHAVEZ METALLURGICAL ENGINEERING TECHNICIAN Ot 427.31 ATRIAL FIBRILLATION 03/22/2014 WILLIAMS CHAVEZ METALLURGICAL ENGINEERING TECHNICIAN Ot V58.61 ANTICOAGULANTS,LT,CURRENT USE 04/11/2014 ROGELIO CORTES MD Ot 272.0 PURE HYPERCHOLESTEROLEM 04/11/2014 ROGELIO CORTES MD Ot 280.9 IRON DEFIC ANEMIA NOS 04/11/2014 ROGELIO CORTES MD Ot 287.5 THROMBOCYTOPENIA NOS 04/11/2014 ROGELIO CORTES MD Ot 403.90 HYPTNSV CHR KID DIS, UNSPEC, W CHR KD ST 04/11/2014 ROGELIO CORTES MD Ot 414.00 CORON ATHEROSCLER NOS TYPE VESSEL, NATIV 04/11/2014 ROGELIO CORTES MD Ot 427.31 ATRIAL FIBRILLATION 04/11/2014 ROGELIO CORTES MD Ot 585.9 CHRONIC KIDNEY DISEASE, UNSPECIFIED 04/11/2014 ROGELIO CORTES MD Ot 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 04/11/2014 ROGELIO CORTES MD Ot V58.61 ANTICOAGULANTS,LT,CURRENT USE 04/11/2014 ROGELIO CORTES MD Ot V58.69 OTH MED,LT,CURRENT USE 07/03/2014 AGNIESZKA PARDO MD, FACCP CCDS Ot 427.31 ATRIAL FIBRILLATION 07/03/2014 AGNIESZKA PARDO MD, FACC FACP CCDS Ot V58.61 ANTICOAGULANTS,LT,CURRENT USE 07/19/2014 CHARLEY SLAUGHTER MD T Ot 593.9 RENAL URETERAL DIS NOS 07/19/2014 CHARLEY SLAUGHTER MD T Ot 787.91 DIARRHEA 07/19/2014 CHARLEY SLAUGHTER MD T Ot V58.61 ANTICOAGULANTS,LT,CURRENT USE 07/24/2014 AGNIESZKA PARDO MD, FACC FACP CCDS Ot 427.31 07/24/2014 AGNIESZKA PARDO MD, FACC FACP CCDS Ot V58.61 07/25/2014 CHAR SHIRLEY FACC, AGNIESZKA FACP CCDS Ot 427.31 07/25/2014 AGNIESZKA PARDO MD, FACC FACP CCDS Ot V58.61 07/26/2014 AGNIESZKA PARDO MD, FACC FACP CCDS Ot 427.31 07/26/2014 CHAR SHIRLEY FACC, AGNIESZKA FACP CCDS Ot V58.61 07/26/2014 CHAR SHIRLEY FACC, AGNIESZKA FACP CCDS Ot 427.31 07/26/2014 CHAR SHIRLEY FACC, AGNIESZKA FACP CCDS Ot V58.61 08/14/2014 ROGELIO CORTES MD Ot 272.0 PURE HYPERCHOLESTEROLEM 08/14/2014 ROGELIO CORTES MD Ot 280.9 IRON DEFIC ANEMIA NOS 08/14/2014 ROGELIO CORTES MD Ot 287.5 THROMBOCYTOPENIA NOS 08/14/2014 ROGELIO CORTES MD Ot 403.90 HYPTNSV CHR KID DIS, UNSPEC, W CHR KD ST 08/14/2014 ROGELIO CORTES MD Ot 414.00 CORON ATHEROSCLER NOS TYPE VESSEL, NATIV 08/14/2014 ROGELIO CORTES MD Ot 427.31 ATRIAL FIBRILLATION 08/14/2014 ROGELIO CORTES MD Ot 585.9 CHRONIC KIDNEY DISEASE, UNSPECIFIED 08/14/2014 ROGELIO CORTES MD Ot 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 08/14/2014 ROGELIO CORTES MD Ot V58.61 ANTICOAGULANTS,LT,CURRENT USE 08/14/2014 ROGELIO CORTES MD Ot V58.69 OTH MED,LT,CURRENT USE 08/30/2014 CHAR SHIRLEY FACC, AGNIESZKA FACP CCDS Ot 427.31 08/30/2014 CHAR SHIRLEY FACC, AGNIESZKA FACP CCDS Ot V58.61 10/22/2014 CHAR SHIRLEY FACC, AGNIESZKA FACP CCDS Ot 427.31 ATRIAL FIBRILLATION 10/22/2014 CHAR SHIRLEY FACC, AGNIESZKA FACP CCDS Ot V58.61 ANTICOAGULANTS,LT,CURRENT USE 12/27/2014 CHAR SHIRLEY FACC, ALI FACP CCDS Ot 427.31 12/27/2014 CHAR SHIRLEY FACC, AGNIESZKA FACP CCDS Ot V58.61 01/02/2015 BAIMA, WILLIAMS L METALLURGICAL ENGINEERING TECHNICIAN Ot 272.4 01/02/2015 BAIMA, WILLIAMS L METALLURGICAL ENGINEERING TECHNICIAN Ot 401.9 01/02/2015 BAIMA, WILLIAMS L METALLURGICAL ENGINEERING TECHNICIAN Ot 414.00 01/02/2015 BAIMA, WILLIAMS L METALLURGICAL ENGINEERING TECHNICIAN Ot 427.31 01/19/2015 BAIMA, WILLIAMS L METALLURGICAL ENGINEERING TECHNICIAN Ot 272.4 01/19/2015 BAIMA, WILLIAMS L METALLURGICAL ENGINEERING TECHNICIAN Ot 401.9 01/19/2015 SCOTTWILLIAMS METALLURGICAL ENGINEERING TECHNICIAN Ot 414.9 01/19/2015 DORISWILLIAMS CANO METALLURGICAL ENGINEERING TECHNICIAN Ot 427.31 02/01/2015 CHAR SHIRLEY FACC, AGNIESZKA BURGERP CCDS Ot 427.31 ATRIAL FIBRILLATION 02/01/2015 CHAR SHIRLEY FACC, AGNIESZKA FACP CCDS Ot V58.61 ANTICOAGULANTS,LT,CURRENT USE 02/06/2015 CHAR SHIRLEY FACC, AGNIESZKA BURGERP CCDS Ot 427.31 02/06/2015 CHAR SHIRLEY FACC, AGNIESZKA FACP CCDS Ot V58.61 02/12/2015 ROGELIO CORTES MD Ot 272.0 PURE HYPERCHOLESTEROLEM 02/12/2015 ROGELIO CORTES MD Ot 280.9 IRON DEFIC ANEMIA NOS 02/12/2015 ROGELIO CORTES MD Ot 287.5 THROMBOCYTOPENIA NOS 02/12/2015 SEBASTIAN SHIRLEY, ROGELIO Alberts Ot 403.90 HYPTNSV CHR KID DIS, UNSPEC, W CHR KD ST 02/12/2015 ROGELIO CORTES MD Ot 414.00 CORON ATHEROSCLER NOS TYPE VESSEL, NATIV 02/12/2015 ROGELIO CORTES MD Ot 427.31 ATRIAL FIBRILLATION 02/12/2015 ROGELIO CORTES MD Ot 585.9 CHRONIC KIDNEY DISEASE, UNSPECIFIED 02/12/2015 ROGELIO CORTES MD Ot 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 02/12/2015 ROGELIO CORTES MD Ot V58.61 ANTICOAGULANTS,LT,CURRENT USE 02/12/2015 ROGELIO CORTES MD Ot V58.69 OTH MED,LT,CURRENT USE 03/22/2015 CHAR SHIRLEY FACC, AGNIESZKA BURGERP CCDS Ot 427.31 03/22/2015 CHAR SHIRLEY FACC, AGNIESZKA BURGERP CCDS Ot V58.61 03/28/2015 JAZIEL PRATER MD R Ot 780.79 04/20/2015 MOI SHIRLEY JAZIEL R Ot 429.3 04/20/2015 MOI SHIRLEY JAZIEL R Ot 786.2 05/06/2015 CHAR SHIRLEY FACC, AGNIESZKA FRIEND CCDS Ot 427.31 ATRIAL FIBRILLATION 05/06/2015 CHAR SHIRLEY FACC, AGNIESZKA BURGERP CCDS Ot V58.61 ANTICOAGULANTS,LT,CURRENT USE 05/15/2015 JAZIEL PRATER MD R Ot 794.4 05/23/2015 ROGELIO CORTES MD Ot 272.0 05/23/2015 SEBASTIAN SHIRLEY, ROGELIO K Ot 280.9 05/23/2015 SEBASTIAN SHIRLEY, ROGELIO K Ot 287.5 05/23/2015 SEBASTIAN SHIRLEY, ROGELIO K Ot 403.90 05/23/2015 SEBASTIAN SHIRLEY, ROGELIO Aristeo Ot 414.00 05/23/2015 SEBASTIAN SHIRLEY, ROGELIO K Ot 427.31 05/23/2015 SEBASTIAN SHIRLEY, ROGELIO Aristeo Ot 585.9 05/23/2015 SEBASTIAN SHIRLEY, ROGELIO Alberts Ot V45.81 05/23/2015 SEBASTIAN SHIRLEY, ROGELIO Alberts Ot V58.61 05/23/2015 SEBASTIAN SHIRLEY, ROGELIO Alberts Ot V58.69 05/28/2015 CHAR SHIRLEY FACC, ALI FACP CCDS Ot 427.31 05/28/2015 CHAR SHIRLEY FACC, ALI FACP CCDS Ot V58.61 05/28/2015 MOI SHIRLEY, JAZIEL R Ot 429.3 05/28/2015 MOI SHIRLEY, JAZIEL R Ot 786.2 05/29/2015 CHAR SHIRLEY FACC, ALI FACP CCDS Ot 427.31 05/29/2015 CHAR SHIRLEY FACC, ALI FACP CCDS Ot V58.61 05/30/2015 CHAR SHIRLEY FACC, ALI FACP CCDS Ot 427.31 ATRIAL FIBRILLATION 05/30/2015 CHAR SHIRLEY FACC, ALI FACP CCDS Ot V58.61 ANTICOAGULANTS,LT,CURRENT USE 06/13/2015 SEBASTIAN SHIRLEY, ROGELIO Alberts Ot 272.0 06/13/2015 SEBASTIAN SHIRLEY, ROGELIO Alberts Ot 280.9 06/13/2015 SEBASTIAN SHIRLEY, ROGELIO K Ot 287.5 06/13/2015 SEBASTIAN SHIRLEY, ROGELIO Aristeo Ot 403.90 06/13/2015 SEBASTIAN SHIRLEY, ROGELIO Aristeo Ot 414.00 06/13/2015 SEBASTIAN SHIRLEY, ROGELIO K Ot 427.31 06/13/2015 SEBASTIAN SHIRLEY, ROGELIO Aristeo Ot 585.9 06/13/2015 SEBASTIAN SHIRLEY, ROGELIO Alberts Ot V45.81 06/13/2015 SEBASTIAN SHIRLEY, ROGELIO Aristeo Ot V58.61 06/13/2015 SEBASTIAN SHIRLEY, ROGELIO Alberts Ot V58.69 07/16/2015 CHAR SHIRLEY FACC, ALI FACP CCDS Ot 427.31 07/16/2015 CHAR SHIRLEY FACC, ALI FACP CCDS Ot V58.61 07/20/2015 SEBASTIAN SHIRLEY, ROGELIO Alberts Ot 272.0 07/20/2015 SEBASTIAN SHIRLEY, ROGELIO Alberts Ot 280.9 07/20/2015 SEBASTIAN SHIRLEY, ROGELIO Alberts Ot 287.5 07/20/2015 SEBASTIAN SHIRLEY, ROGELIO Alberts Ot 403.90 07/20/2015 SEBASTIAN SHIRLEY, ROGELIO Alberts Ot 414.00 07/20/2015 SEBASTIAN SHIRLEY, ROGELIO Alberts Ot 427.31 07/20/2015 SEBASTIAN SHIRLEY, ROGELIO Alberts Ot 585.9 07/20/2015 SEBASTIAN SHIRLEY, ROGELIO Alberts Ot V45.81 07/20/2015 SEBASTIAN SHIRLEY, ROGELIO Alberts Ot V58.61 07/20/2015 SEBASTIAN SHIRLEY, ROGELIO Alberts Ot V58.69 08/08/2015 SEBASTIAN SHIRLEY, ROGELIO Alberts Ot D50.9 08/08/2015 SEBASTIAN SHIRLEY, ROGELIO Alberts Ot D69.6 08/08/2015 SEBASTIAN SHIRLEY, ROGELIO Alberts Ot E78.5 08/08/2015 SEBASTIAN SHIRLEY, ROGELIO Alberts Ot I12.9 08/08/2015 SEBASTIAN SHIRLEY, ROGELIO Alberts Ot I25.10 08/08/2015 SEBASTIAN SHIRLEY, ROGELIO Alberts Ot I48.91 08/08/2015 SEBASTIAN SHIRLEY, ROGELIO Alberts Ot N18.9 08/08/2015 SEBASTIAN SHIRLEY, ROGELIO Alberts Ot Z79.01 08/08/2015 SEBASTIAN SHIRLEY, ROGELIO Alberts Ot Z79.899 08/23/2015 CHAR SHIRLEY FACC, ALI FACP CCDS Ot I48.91 08/23/2015 CHAR SHIRLEY FACC, ALI FACP CCDS Ot Z51.81 08/23/2015 CHAR SHIRLEY FACC, ALI FACP CCDS Ot Z79.01 09/12/2015 SEBASTIAN SHIRLEY, ROGELIO Alberts Ot D50.9 IRON DEFICIENCY ANEMIA, UNSPECIFIED 09/12/2015 SEBASTIAN SHIRLEY, ROGELIO Alberts Ot D69.6 THROMBOCYTOPENIA, UNSPECIFIED 09/12/2015 SEBASTIAN SHIRLEY, ROGELIO Alberts Ot E78.5 HYPERLIPIDEMIA, UNSPECIFIED 09/12/2015 SEBASTIAN SHIRLEY, ROGELIO Alberts Ot I12.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 09/12/2015 SEBASTIAN SHIRLEY, ROGELIO Alberts Ot I25.10 ATHSCL HEART DISEASE OF [place] CORONARY 09/12/2015 SEBASTIAN SHIRLEY, ROGELIO Alberts Ot I48.91 UNSPECIFIED ATRIAL FIBRILLATION 09/12/2015 SEBASTIAN SHIRLEY, ROGELIO Alberts Ot N18.9 CHRONIC KIDNEY DISEASE, UNSPECIFIED 09/12/2015 SEBASTIAN SHIRLEY, ROGELIO Alberts Ot Z79.01 TRANSPLANT NURSE PRACTITIONER (CURRENT) USE OF ANTICOAGULANT 09/12/2015 SEBASTIAN SHIRLEY, ROGELIO Alberts Ot Z79.899 OTHER PRISON (CURRENT) DRUG THERAPY 10/10/2015 CHAR SHIRLEY FACC, AGNIESZKA FACP CCDS Ot I48.91 UNSPECIFIED ATRIAL FIBRILLATION 10/10/2015 CHAR SHIRLEY FACC, AGNIESZKA FACP CCDS Ot Z51.81 ENCOUNTER FOR THERAPEUTIC DRUG LEVEL MON 10/10/2015 CHAR SHIRLEY FACC, AGNIESZKA FACP CCDS Ot Z79.01 TRANSPLANT NURSE PRACTITIONER (CURRENT) USE OF ANTICOAGULANT 10/30/2015 Ot 272.4 10/30/2015 Ot 401.9 10/30/2015 Ot 272.4 10/30/2015 Ot 780.79 10/30/2015 Ot 427.31 10/30/2015 Ot 729.5 10/30/2015 Ot 780.4 10/30/2015 Ot V45.81 10/30/2015 Ot V67.00 10/30/2015 Ot 414.00 10/30/2015 Ot 428.0 10/30/2015 Ot 414.00 10/30/2015 Ot 428.0 10/30/2015 Ot V45.81 10/30/2015 Ot V58.69 10/30/2015 Ot 786.50 10/30/2015 Ot 427.31 10/30/2015 Ot V58.69 10/30/2015 Ot 511.9 10/30/2015 Ot 511.9 10/30/2015 Ot 429.3 10/30/2015 Ot 511.9 10/30/2015 Ot 786.2 10/30/2015 Ot V45.01 10/30/2015 CHAR SHIRLEY FACC, AGNIESZKA FACP CCDS Ot 427.31 10/30/2015 CHAR SHIRLEY FACC, AGNIESZKA FACP CCDS Ot 729.81 10/30/2015 CHAR SHIRLEY FACC, AGNIESZKA FACP CCDS Ot 786.09 10/30/2015 CHAR SHIRLEY FACC, AGNIESZKA FACP CCDS Ot V58.69 10/30/2015 WILLIAMS CHAVEZ L METALLURGICAL ENGINEERING TECHNICIAN Ot 790.6 10/30/2015 WILLIAMS CHAVEZ L METALLURGICAL ENGINEERING TECHNICIAN Ot 790.6 10/30/2015 WILLIAMS CHAVEZ L METALLURGICAL ENGINEERING TECHNICIAN Ot 428.0 10/30/2015 JEREMIAH CHAVEZHER L METALLURGICAL ENGINEERING TECHNICIAN Ot 428.0 10/30/2015 CHAR BURGERC, AGNIESZKA FACP CCDS Ot 414.00 10/30/2015 CHAR SHIRLEY FACC, AGNIESZKA FACP CCDS Ot 429.3 10/30/2015 CHAR SHIRLEY [facility] FACP CCDS Ot 786.59 10/30/2015 CHAR SHIRLEY [facility] FACP CCDS Ot V45.81 10/30/2015 BAIJEREMIAH CANOHER L METALLURGICAL ENGINEERING TECHNICIAN Ot 272.4 10/30/2015 Ot 272.0 10/30/2015 Ot 278.00 10/30/2015 Ot 287.5 10/30/2015 Ot 403.90 10/30/2015 Ot 414.00 10/30/2015 Ot 427.31 10/30/2015 Ot 447.9 10/30/2015 Ot 585.9 10/30/2015 Ot 780.79 10/30/2015 Ot V12.61 10/30/2015 Ot V58.61 10/30/2015 BAIMA, WILLIAMS L METALLURGICAL ENGINEERING TECHNICIAN Ot 272.4 10/30/2015 BAIMA, WILLIAMS L METALLURGICAL ENGINEERING TECHNICIAN Ot 401.9 10/30/2015 BAIMA, WILLIAMS L METALLURGICAL ENGINEERING TECHNICIAN Ot 414.00 10/30/2015 BAIMA, WILLIAMS L METALLURGICAL ENGINEERING TECHNICIAN Ot 427.31 10/30/2015 BAIMA, WILLIAMS L METALLURGICAL ENGINEERING TECHNICIAN Ot 272.4 10/30/2015 BAIMA, WILLIAMS L METALLURGICAL ENGINEERING TECHNICIAN Ot 401.9 10/30/2015 BAIMA, WILLIAMS L METALLURGICAL ENGINEERING TECHNICIAN Ot 414.9 10/30/2015 BAIMA, WILLIAMS L METALLURGICAL ENGINEERING TECHNICIAN Ot 427.31 10/30/2015 MOI SHIRLEY, JAZIEL R Ot 780.79 10/30/2015 MOI SHIRLEY, JAZIEL R Ot 429.3 10/30/2015 MOI SHIRLEY, JAZIEL R Ot 786.2 10/30/2015 MOI SHIRLEY, JAZIEL R Ot 794.4 10/30/2015 SEBASTIAN SHIRLEY, ROGELIO K Ot D50.9 10/30/2015 SEBASTIAN SHIRLEY, ROGELIO K Ot D69.6 10/30/2015 SEBASTIAN SHIRLEY, ROGELIO Aristeo Ot E78.5 10/30/2015 SEBASTIAN SHIRLEY, ROGELIO Aristeo Ot I12.9 10/30/2015 SEBASTIAN SHIRLEY, ROGELIO K Ot I25.10 10/30/2015 SEBASTIAN SHIRLEY, ROGELIO K Ot I48.91 10/30/2015 SEBASTIAN SHIRLEY, ROGELIO Alberts Ot N18.9 10/30/2015 SEBASTIAN SHIRLEY, ROGELIO Alberts Ot Z79.01 10/30/2015 SEBASTIAN SHIRLEY, ROGELIO K Ot Z79.899 10/30/2015 CHAR SHIRLEY FAC, ALI FACP CCDS Ot I48.91 10/30/2015 CHAR SHIRLEY FAC, ALI FACP CCDS Ot Z51.81 10/30/2015 CHAR SHIRLEY FACC, ALI FACP CCDS Ot Z79.01 10/30/2015 CHAR SHIRLEY FACC, ALI FACP CCDS Ot I48.91 10/30/2015 CHAR SHIRLEY FAC, ALI FACP CCDS Ot Z51.81 10/30/2015 CHAR SHIRLEY FAC, ALI FACP CCDS Ot Z79.01 10/30/2015 CHAR SHIRLEY [facility], ALI FACP CCDS Ot I48.91 10/30/2015 CHAR SHIRLEY [facility], ALI FACP CCDS Ot Z51.81 10/30/2015 CHAR SHIRLEY FAC, ALI FACP CCDS Ot Z79.01 10/30/2015 CHAR SHIRLEY [facility], ALI FACP CCDS Ot I48.91 10/30/2015 CHAR SHIRLEY [facility], ALI FACP CCDS Ot Z51.81 10/30/2015 CHAR SHIRLEY [facility], ALI FACP CCDS Ot Z79.01 11/01/2015 MOI SHIR[facility], JAZIEL R Ot D69.6 THROMBOCYTOPENIA, UNSPECIFIED 11/01/2015 MOI SHIRLEY, JAZIEL R Ot E78.5 HYPERLIPIDEMIA, UNSPECIFIED 11/01/2015 JAZIEL PRATER MD R Ot I12.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 11/01/2015 JAZIEL PRATER MD R Ot I25.10 ATHSCL HEART DISEASE OF [place] CORONARY 11/01/2015 JAZIEL PRATER MD R Ot I48.0 PAROXYSMAL ATRIAL FIBRILLATION 11/01/2015 JAZIEL PRATER MD R Ot I48.2 CHRONIC ATRIAL FIBRILLATION 11/01/2015 JAZIEL PRATER MD R Ot 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 11/01/2015 JAZIEL PRATER MD R Ot N18.2 CHRONIC KIDNEY DISEASE, STAGE 2 (MILD) 11/01/2015 JAZIEL PRATER MD R Ot R07.89 OTHER CHEST PAIN 11/01/2015 MOI SHIRLEY JAZIEL R Ot Z79.01 PRISON (CURRENT) USE OF ANTICOAGULANT 11/01/2015 MOI SHIRLEY, JAZIEL R Ot Z95.0 PRESENCE OF CARDIAC PACEMAKER 11/01/2015 MOI SHIRLEY, JAZIEL R Ot Z95.1 PRESENCE OF AORTOCORONARY BYPASS GRAFT 11/01/2015 MOI SHIRLEY, JAZIEL R Ot D69.6 11/01/2015 MOI [facility]LEY, JAZIEL R Ot E78.5 11/01/2015 MOI [facility]IRLEY, JAZIEL R Ot I12.9 11/01/2015 MOI [facility]LEY, JAZIEL R Ot I25.10 11/01/2015 MOI SHIRLEY, JAZIEL R Ot I48.0 11/01/2015 MOI SHIRLEY, JAZIEL R Ot I48.2 11/01/2015 MOI [facility]IRLEY, JAZIEL R Ot I65.23 11/01/2015 MOI SHIRLEY, JAZIEL R Ot N18.2 11/01/2015 MOI [facility]LEY, JAZIEL R Ot R07.89 11/01/2015 MOI [facility]LEY, JAZIEL R Ot Z79.01 11/01/2015 MOI [facility]IRLEY, JAZIEL R Ot Z95.0 11/01/2015 MOI [facility]LEY, JAZIEL R Ot Z95.1 11/22/2015 MOI [facility], JAZIEL R Ot I48.91 11/22/2015 MOI [facility]IRLEY, JAZIEL R Ot Z51.81 12/05/2015 [facility] FACC, AGNIESZKA BURGERP CCDS Ot I48.91 12/05/2015 [facility] FACC, AGNIESZKA FACP CCDS Ot Z51.81 12/05/2015 [facility] FACC, AGNIESZKA FACP CCDS Ot Z79.01 12/21/2015 [facility] FACC, AGNIESZKA FACP CCDS Ot I48.91 UNSPECIFIED ATRIAL FIBRILLATION 12/21/2015 [facility] FACC, AGNIESZKA FACP CCDS Ot Z51.81 ENCOUNTER FOR THERAPEUTIC DRUG LEVEL MON 12/21/2015 [facility] FACC, AGNIESZKA FACP CCDS Ot Z79.01 PRISON (CURRENT) USE OF ANTICOAGULANT 01/04/2016 [facility] FACC, AGNIESZKA FACP CCDS Ot I10 ESSENTIAL (PRIMARY) HYPERTENSION 01/04/2016 [facility] FACC, AGINESZKA FACP CCDS Ot I10 ESSENTIAL (PRIMARY) HYPERTENSION 01/04/2016 PITOHUMA ROSARIO MD Ot S80.12XA CONTUSION OF LEFT LOWER LEG, INITIAL ENC 01/04/2016 HUMA SHELDON MD Ot V58.3XXA [facility] 01/04/2016 HUMA SHELDON MD Ot Y99.8 OTHER EXTERNAL CAUSE STATUS 01/04/2016 HUMA SHELDON MD Ot Z79.01 PRISON (CURRENT) USE OF ANTICOAGULANT 01/04/2016 HUMA SHELDON MD Ot Z95.0 PRESENCE OF CARDIAC PACEMAKER 01/06/2016 HUMA SHELDON MD, Ot S80.12XA CONTUSION OF LEFT LOWER LEG, INITIAL ENC 01/06/2016 HUMA SHELDON MD, Ot V58.3XXA OCC[facility] 01/06/2016 HUMA SHELDON MD Ot Y99.8 OTHER EXTERNAL CAUSE STATUS 01/06/2016 HUMA SHELDON MD Ot Z79.01 PRISON (CURRENT) USE OF ANTICOAGULANT 01/06/2016 HUMA SHELDON MD Ot Z95.0 PRESENCE OF CARDIAC PACEMAKER 01/07/2016 [facility] FACC, AGNIESZKA FACP CCDS Ot D69.6 THROMBOCYTOPENIA, UNSPECIFIED 01/07/2016 [facility] FACC, AGNIESZKA FACP CCDS Ot E78.0 PURE HYPERCHOLESTEROLEMIA 01/07/2016 [facility] FACC, ALI FACP CCDS Ot I12.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 01/07/2016 CHAR [facility] FACC, ALI FACP CCDS Ot I25.10 ATHSCL HEART DISEASE OF [place] CORONARY 01/07/2016 [facility] FACC, ALI FACP CCDS Ot I34.0 NONRHEUMATIC MITRAL (VALVE) INSUFFICIENC 01/07/2016 [facility] FACC, ALI FACP CCDS Ot I48.0 PAROXYSMAL ATRIAL FIBRILLATION 01/07/2016 [facility] FACC, ALI FACP CCDS Ot 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 01/07/2016 [facility] FACC, ALI FACP CCDS Ot N18.2 CHRONIC KIDNEY DISEASE, STAGE 2 (MILD) 01/10/2016 HUMA SHELDON MD Ot S80.12XA CONTUSION OF LEFT LOWER LEG, INITIAL ENC 01/10/2016 HUMA SHELDON MD Ot V58.3XXA OCCUP OF PK-UP/VAN INJ IN NON[facility] 01/10/2016 HUMA SHELDON MD Ot Y99.8 OTHER EXTERNAL CAUSE STATUS 01/10/2016 HUMA SHELDON MD Ot Z79.01 PRISON (CURRENT) USE OF ANTICOAGULANT 01/10/2016 HUMA SHELDON MD Ot Z95.0 PRESENCE OF CARDIAC PACEMAKER 01/24/2016 [facility] FACC, AGNIESZKA FACP CCDS Ot D69.6 THROMBOCYTOPENIA, UNSPECIFIED 01/24/2016 [facility] FACC, AGNIESZKA FACP CCDS Ot E78.0 PURE HYPERCHOLESTEROLEMIA 01/24/2016 [facility] FACC, AGNIESZAK FACP CCDS Ot I12.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 01/24/2016 CHAR [facility] FACC ALI FACP CCDS Ot I25.10 ATHSCL HEART DISEASE OF [place] CORONARY 01/24/2016 [facility] FACC, AGNIESZKA FACP CCDS Ot I34.0 NONRHEUMATIC MITRAL (VALVE) INSUFFICIENC 01/24/2016 AGNIESZKA PARDO MD, FACC FACP CCDS Ot I48.0 PAROXYSMAL ATRIAL FIBRILLATION 01/24/2016 [facility] FACC, AGNIESZKA FACP CCDS Ot 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 01/24/2016 [facility] FACC, AGNIESZKA FACP CCDS Ot N18.2 CHRONIC KIDNEY DISEASE, STAGE 2 (MILD) 01/28/2016 AGNIESZKA PARDO MD, FACC FACP CCDS Ot I48.91 UNSPECIFIED ATRIAL FIBRILLATION 01/28/2016 AGNIESZKA PARDO MD, FACC FACP CCDS Ot Z51.81 ENCOUNTER FOR THERAPEUTIC DRUG LEVEL MON 01/28/2016 AGNIESZKA PARDO MD, FACC FACP CCDS Ot Z79.01 PRISON (CURRENT) USE OF ANTICOAGULANT 04/11/2016 CHAR SHIRLEY FACC ALI FACP CCDS Ot I48.91 UNSPECIFIED ATRIAL FIBRILLATION 04/11/2016 CHAR SHIRLEY FACC ALI FACP CCDS Ot Z51.81 ENCOUNTER FOR THERAPEUTIC DRUG LEVEL MON 04/11/2016 AGNIESZKA PARDO MD, FACC FACP CCDS Ot Z79.01 TRANSPLANT NURSE PRACTITIONER (CURRENT) USE OF ANTICOAGULANT 04/29/2016 CHAR SHIRLEY FACC ALI FACP CCDS Ot I48.91 UNSPECIFIED ATRIAL FIBRILLATION 04/29/2016 CHAR SHIRLEY FACC, ALI FACP CCDS Ot Z51.81 ENCOUNTER FOR THERAPEUTIC DRUG LEVEL MON 04/29/2016 CHAR SHIRLEY FACJanay, ALI FACP CCDS Ot Z79.01 PRISON (CURRENT) USE OF ANTICOAGULANT 05/07/2016 CHAR SHIRLEY FACJanay, ALI FACP CCDS Ot I48.91 UNSPECIFIED ATRIAL FIBRILLATION 05/07/2016 CHAR SHIRLEY FACC, ALI FACP CCDS Ot Z51.81 ENCOUNTER FOR THERAPEUTIC DRUG LEVEL MON 05/07/2016 CHAR SHIRLEY FACJanay, ALI FACP CCDS Ot Z79.01 PRISON (CURRENT) USE OF ANTICOAGULANT 06/09/2016 CHAR SHIRLEY FACC, ALI FACP CCDS Ot I48.91 UNSPECIFIED ATRIAL FIBRILLATION 06/09/2016 CHAR SHIRLEY FACC, ALI FACP CCDS Ot Z51.81 ENCOUNTER FOR THERAPEUTIC DRUG LEVEL MON 06/09/2016 CHAR SHIRLEY FACC, ALI FACP CCDS Ot Z79.01 PRISON (CURRENT) USE OF ANTICOAGULANT 06/13/2016 ROGELIO CORTES MD Ot D50.9 IRON DEFICIENCY ANEMIA, UNSPECIFIED 06/13/2016 ROGELIO CORTES MD Ot D69.6 THROMBOCYTOPENIA, UNSPECIFIED 06/13/2016 ROGELIO CORTES MD Ot E78.5 HYPERLIPIDEMIA, UNSPECIFIED 06/13/2016 ROGELIO CORTES MD Ot I12.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 06/13/2016 ROGELIO CORTES MD Ot I25.10 ATHSCL HEART DISEASE OF [place] CORONARY 06/13/2016 ROGELIO CORTES MD Ot I48.91 UNSPECIFIED ATRIAL FIBRILLATION 06/13/2016 ROGELIO CORTES MD Ot N18.9 CHRONIC KIDNEY DISEASE, UNSPECIFIED 06/13/2016 ROGELIO CORTES MD Ot Z79.01 PRISON (CURRENT) USE OF ANTICOAGULANT 06/13/2016 ROGELIO CORTES MD Ot Z79.899 OTHER PRISON (CURRENT) DRUG THERAPY 07/22/2016 ROGELIO OCRTES MD, Ot D50.9 IRON DEFICIENCY ANEMIA, UNSPECIFIED 07/22/2016 ROGELIO CORTES MD Ot D69.6 THROMBOCYTOPENIA, UNSPECIFIED 07/22/2016 ROGELIO CORTES MD Ot E78.5 HYPERLIPIDEMIA, UNSPECIFIED 07/22/2016 ROGELIO CORTES MD Ot I12.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 07/22/2016 ROGELIO CORTES MD Ot I25.10 ATHSCL HEART DISEASE OF [place] CORONARY 07/22/2016 ROGELIO CORTES MD Ot I48.91 UNSPECIFIED ATRIAL FIBRILLATION 07/22/2016 ROGELIO CORTES MD Ot N18.9 CHRONIC KIDNEY DISEASE, UNSPECIFIED 07/22/2016 ROGELIO CORTES MD Ot Z79.01 PRISON (CURRENT) USE OF ANTICOAGULANT 07/22/2016 ROGELIO CORTES MD Ot Z79.899 OTHER TRANSPLANT NURSE PRACTITIONER (CURRENT) DRUG THERAPY 08/05/2016 CHAR SHIRLEY FAC, AGNIESZKA FACP CCDS Ot I48.91 UNSPECIFIED ATRIAL FIBRILLATION 08/05/2016 CHAR SHIRLEY FAC, ALI FACP CCDS Ot Z51.81 ENCOUNTER FOR THERAPEUTIC DRUG LEVEL MON 08/05/2016 CHAR SHIRLEY FACJanay, AGNIESZKA FACP CCDS Ot Z79.01 PRISON (CURRENT) USE OF ANTICOAGULANT 09/10/2016 ROGELIO CORTES MD Ot D50.9 IRON DEFICIENCY ANEMIA, UNSPECIFIED 09/10/2016 ROGELIO CORTES MD Ot D69.6 THROMBOCYTOPENIA, UNSPECIFIED 09/10/2016 ROGELIO CORTES MD Ot E78.5 HYPERLIPIDEMIA, UNSPECIFIED 09/10/2016 ROGELIO CORTES MD Ot I12.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 09/10/2016 ROGELIO CORTES MD Ot I25.10 ATHSCL HEART DISEASE OF [place] CORONARY 09/10/2016 ROGELIO CORTES MD Ot I48.91 UNSPECIFIED ATRIAL FIBRILLATION 09/10/2016 ROGELIO CORTES MD Ot N18.9 CHRONIC KIDNEY DISEASE, UNSPECIFIED 09/10/2016 ROGELIO CORTES MD Ot Z79.01 TRANSPLANT NURSE PRACTITIONER (CURRENT) USE OF ANTICOAGULANT 09/10/2016 ROGELIO CORTES MD Ot Z79.899 OTHER TRANSPLANT NURSE PRACTITIONER (CURRENT) DRUG THERAPY 09/11/2016 ROGELIO CORTES MD Ot D50.9 IRON DEFICIENCY ANEMIA, UNSPECIFIED 09/11/2016 ROGELIO CORTES MD Ot D69.6 THROMBOCYTOPENIA, UNSPECIFIED 09/11/2016 ROGELIO CORTES MD Ot E78.5 HYPERLIPIDEMIA, UNSPECIFIED 09/11/2016 ROGELIO CORTES MD Ot I12.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 09/11/2016 ROGELIO CORTES MD Ot I25.10 ATHSCL HEART DISEASE OF [place] CORONARY 09/11/2016 ROGELIO CORTES MD Ot I48.91 UNSPECIFIED ATRIAL FIBRILLATION 09/11/2016 ROGELIO CORTES MD, Ot N18.9 CHRONIC KIDNEY DISEASE, UNSPECIFIED 09/11/2016 ROGELIO CORTES MD Ot Z79.01 PRISON (CURRENT) USE OF ANTICOAGULANT 09/11/2016 ROGELIO CORTES MD Ot Z79.899 OTHER PRISON (CURRENT) DRUG THERAPY 10/15/2016 CHAR SHIRLEY FACC, ALI FACP CCDS Ot I48.91 UNSPECIFIED ATRIAL FIBRILLATION 10/15/2016 CHAR SHIRLEY FACJanay, ALI FACP CCDS Ot Z51.81 ENCOUNTER FOR THERAPEUTIC DRUG LEVEL MON 10/15/2016 CHAR SHIRLEY FACJanay, ALI FACP CCDS Ot Z79.01 TRANSPLANT NURSE PRACTITIONER (CURRENT) USE OF ANTICOAGULANT 10/16/2016 CHAR SHIRLEY FACC, ALI FACP CCDS Ot I48.91 UNSPECIFIED ATRIAL FIBRILLATION 10/16/2016 CHAR SHIRLEY FACJanay, ALI FACP CCDS Ot Z51.81 ENCOUNTER FOR THERAPEUTIC DRUG LEVEL MON 10/16/2016 CHAR SHIRLEY FACC, ALI FACP CCDS Ot Z79.01 TRANSPLANT NURSE PRACTITIONER (CURRENT) USE OF ANTICOAGULANT 11/03/2016 CHAR SHIRLEY FACC, ALI FACP CCDS Ot I48.91 UNSPECIFIED ATRIAL FIBRILLATION 11/03/2016 CHAR SHIRLEY FACJanay, ALI FACP CCDS Ot Z51.81 ENCOUNTER FOR THERAPEUTIC DRUG LEVEL MON 11/03/2016 CHAR SHIRLEY FACC, ALI FACP CCDS Ot Z79.01 TRANSPLANT NURSE PRACTITIONER (CURRENT) USE OF ANTICOAGULANT 12/10/2016 ROGELIO CORTES MD Ot D50.9 IRON DEFICIENCY ANEMIA, UNSPECIFIED 12/10/2016 ROGELIO CORTES MD Ot D69.6 THROMBOCYTOPENIA, UNSPECIFIED 12/10/2016 ROGELIO CORTES MD Ot E78.5 HYPERLIPIDEMIA, UNSPECIFIED 12/10/2016 ROGELIO CORTES MD Ot I12.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 12/10/2016 ROGELIO CORTES MD Ot I25.10 ATHSCL HEART DISEASE OF [place] CORONARY 12/10/2016 ROGELIO CORTES MD Ot I48.91 UNSPECIFIED ATRIAL FIBRILLATION 12/10/2016 ROGELIO CORTES MD, Ot N18.9 CHRONIC KIDNEY DISEASE, UNSPECIFIED 12/10/2016 ROGELIO CORTES MD Ot Z79.01 TRANSPLANT NURSE PRACTITIONER (CURRENT) USE OF ANTICOAGULANT 12/10/2016 ROGELIO CORTES MD Ot Z79.899 OTHER TRANSPLANT NURSE PRACTITIONER (CURRENT) DRUG THERAPY 12/11/2016 ROGELIO CORTES MD Ot D50.9 IRON DEFICIENCY ANEMIA, UNSPECIFIED 12/11/2016 ROGELIO CORTES MD Ot D69.6 THROMBOCYTOPENIA, UNSPECIFIED 12/11/2016 ROGELIO CORTES MD Ot E78.5 HYPERLIPIDEMIA, UNSPECIFIED 12/11/2016 ROGELIO CORTES MD Ot I12.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 12/11/2016 ROGELIO CORTES MD Ot I25.10 ATHSCL HEART DISEASE OF [place] CORONARY 12/11/2016 ROGELIO CORTES MD Ot I48.91 UNSPECIFIED ATRIAL FIBRILLATION 12/11/2016 ROGELIO CORTES MD Ot N18.9 CHRONIC KIDNEY DISEASE, UNSPECIFIED 12/11/2016 ROGELIO CORTES MD Ot Z79.01 TRANSPLANT NURSE PRACTITIONER (CURRENT) USE OF ANTICOAGULANT 12/11/2016 ROGELIO CORTES MD Ot Z79.899 OTHER PRISON (CURRENT) DRUG THERAPY 01/13/2017 CHAR SHIRLEY FACC, ALI FACP CCDS Ot I48.91 UNSPECIFIED ATRIAL FIBRILLATION 01/13/2017 CHAR SHIRLEY FACC, ALI FACP CCDS Ot Z79.01 PRISON (CURRENT) USE OF ANTICOAGULANT 01/14/2017 CHRA SHIRLEY FACC, ALI FACP CCDS Ot I48.91 UNSPECIFIED ATRIAL FIBRILLATION 01/14/2017 CHAR SHIRLEY FACC, ALI FACP CCDS Ot Z79.01 PRISON (CURRENT) USE OF ANTICOAGULANT 01/14/2017 ROGELIO CORTES MD Ot D50.9 IRON DEFICIENCY ANEMIA, UNSPECIFIED 01/14/2017 ROGELIO CORTES MD Ot D69.6 THROMBOCYTOPENIA, UNSPECIFIED 01/14/2017 ROGELIO CORTES MD Ot E78.5 HYPERLIPIDEMIA, UNSPECIFIED 01/14/2017 ROGELIO CORTES MD Ot I12.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 01/14/2017 ROGELIO CORTES MD Ot I25.10 ATHSCL HEART DISEASE OF [place] CORONARY 01/14/2017 ROGELIO CORTES MD Ot I48.91 UNSPECIFIED ATRIAL FIBRILLATION 01/14/2017 ROGELIO CORTES MD Ot N18.9 CHRONIC KIDNEY DISEASE, UNSPECIFIED 01/14/2017 ROGELIO CORTES MD Ot Z79.01 PRISON (CURRENT) USE OF ANTICOAGULANT 01/14/2017 ROGELIO CORTES MD Ot Z79.899 OTHER TRANSPLANT NURSE PRACTITIONER (CURRENT) DRUG THERAPY 01/14/2017 ROGELIO CORTES MD Ot D50.9 IRON DEFICIENCY ANEMIA, UNSPECIFIED 01/14/2017 ROGELIO CORTES MD Ot D69.6 THROMBOCYTOPENIA, UNSPECIFIED 01/14/2017 ROGELIO CORTES MD Ot E78.5 HYPERLIPIDEMIA, UNSPECIFIED 01/14/2017 ROGELIO CORTES MD Ot I12.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 01/14/2017 ROGELIO CORTES MD Ot I25.10 ATHSCL HEART DISEASE OF [place] CORONARY 01/14/2017 ROGELIO CORTES MD Ot I48.91 UNSPECIFIED ATRIAL FIBRILLATION 01/14/2017 ROGELIO CORTES MD Ot N18.9 CHRONIC KIDNEY DISEASE, UNSPECIFIED 01/14/2017 ROGELIO CORTES MD Ot Z79.01 TRANSPLANT NURSE PRACTITIONER (CURRENT) USE OF ANTICOAGULANT 01/14/2017 ROGELIO CORTES MD Ot Z79.899 OTHER TRANSPLANT NURSE PRACTITIONER (CURRENT) DRUG THERAPY 01/14/2017 ROGELIO CORTES MD Ot D50.9 IRON DEFICIENCY ANEMIA, UNSPECIFIED 01/14/2017 ROGELIO CORTES MD Ot D69.6 THROMBOCYTOPENIA, UNSPECIFIED 01/14/2017 ROGELIO CORTES MD Ot E78.5 HYPERLIPIDEMIA, UNSPECIFIED 01/14/2017 ROGELIO CORTES MD Ot I12.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 01/14/2017 ROGELIO CORTES MD Ot I25.10 ATHSCL HEART DISEASE OF [place] CORONARY 01/14/2017 ROGELIO CORTES MD Ot I48.91 UNSPECIFIED ATRIAL FIBRILLATION 01/14/2017 ROGELIO CORTES MD Ot N18.9 CHRONIC KIDNEY DISEASE, UNSPECIFIED 01/14/2017 ROGELIO CORTES MD Ot Z79.01 PRISON (CURRENT) USE OF ANTICOAGULANT 01/14/2017 ROGELIO CORTES MD Ot Z79.899 OTHER TRANSPLANT NURSE PRACTITIONER (CURRENT) DRUG THERAPY 03/10/2017 ROGELIO CORTES MD Ot D50.9 IRON DEFICIENCY ANEMIA, UNSPECIFIED 03/10/2017 ROGELIO CORTES MD Ot D69.6 THROMBOCYTOPENIA, UNSPECIFIED 03/10/2017 ROGELIO CORTES MD Ot E78.5 HYPERLIPIDEMIA, UNSPECIFIED 03/10/2017 ROGELIO CORTES MD Ot I12.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 03/10/2017 ROGELIO CORTES MD Ot I25.10 ATHSCL HEART DISEASE OF [place] CORONARY 03/10/2017 ROGELIO CORTES MD Ot I48.91 UNSPECIFIED ATRIAL FIBRILLATION 03/10/2017 ROGELIO CORTES MD Ot N18.9 CHRONIC KIDNEY DISEASE, UNSPECIFIED 03/10/2017 SEBASTIAN SHIRLEY, ROGELIO Alberts Ot Z79.01 TRANSPLANT NURSE PRACTITIONER (CURRENT) USE OF ANTICOAGULANT 03/10/2017 SEBASTIAN SHIRLEY, ROGELIO Alberts Ot Z79.899 OTHER TRANSPLANT NURSE PRACTITIONER (CURRENT) DRUG THERAPY 03/16/2017 BAIMA, WILLIAMS L METALLURGICAL ENGINEERING TECHNICIAN Ot D50.9 IRON DEFICIENCY ANEMIA, UNSPECIFIED 03/16/2017 BAIMA, WILLIAMS L METALLURGICAL ENGINEERING TECHNICIAN Ot D69.6 THROMBOCYTOPENIA, UNSPECIFIED 03/16/2017 BAIMA, WILLIAMS L METALLURGICAL ENGINEERING TECHNICIAN Ot E78.5 HYPERLIPIDEMIA, UNSPECIFIED 03/16/2017 BAIMA, WILLIAMS L METALLURGICAL ENGINEERING TECHNICIAN Ot I12.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 03/16/2017 BAIMA, WILLIAMS L METALLURGICAL ENGINEERING TECHNICIAN Ot I25.10 ATHSCL HEART DISEASE OF [place] CORONARY 03/16/2017 BAIMA, WILLIAMS L METALLURGICAL ENGINEERING TECHNICIAN Ot I48.91 UNSPECIFIED ATRIAL FIBRILLATION 03/16/2017 BAIMA, WILLIAMS L METALLURGICAL ENGINEERING TECHNICIAN Ot N18.9 CHRONIC KIDNEY DISEASE, UNSPECIFIED 03/16/2017 BAIMA, WILLIAMS L METALLURGICAL ENGINEERING TECHNICIAN Ot Z79.01 TRANSPLANT NURSE PRACTITIONER (CURRENT) USE OF ANTICOAGULANT 03/16/2017 BAIMA, WILLIAMS L METALLURGICAL ENGINEERING TECHNICIAN Ot Z79.899 OTHER PRISON (CURRENT) DRUG THERAPY 03/17/2017 BAIMA, WILLIAMS L METALLURGICAL ENGINEERING TECHNICIAN Ot D50.9 IRON DEFICIENCY ANEMIA, UNSPECIFIED 03/17/2017 BAIMA, WILLIAMS L METALLURGICAL ENGINEERING TECHNICIAN Ot D69.6 THROMBOCYTOPENIA, UNSPECIFIED 03/17/2017 BAIMA, WILLIAMS L METALLURGICAL ENGINEERING TECHNICIAN Ot E78.5 HYPERLIPIDEMIA, UNSPECIFIED 03/17/2017 BAIMA, WILLIAMS L METALLURGICAL ENGINEERING TECHNICIAN Ot I12.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 03/17/2017 BAIMA, WILLIAMS L METALLURGICAL ENGINEERING TECHNICIAN Ot I25.10 ATHSCL HEART DISEASE OF [place] CORONARY 03/17/2017 BAIMA, WILLIAMS L METALLURGICAL ENGINEERING TECHNICIAN Ot I48.91 UNSPECIFIED ATRIAL FIBRILLATION 03/17/2017 BAIMA, WILLIAMS L METALLURGICAL ENGINEERING TECHNICIAN Ot N18.9 CHRONIC KIDNEY DISEASE, UNSPECIFIED 03/17/2017 BAIMA, WILLIAMS L METALLURGICAL ENGINEERING TECHNICIAN Ot Z79.01 TRANSPLANT NURSE PRACTITIONER (CURRENT) USE OF ANTICOAGULANT 03/17/2017 BAIMA, WILLIAMS L METALLURGICAL ENGINEERING TECHNICIAN Ot Z79.899 OTHER TRANSPLANT NURSE PRACTITIONER (CURRENT) DRUG THERAPY 04/15/2017 BAIMA, WILLIAMS L METALLURGICAL ENGINEERING TECHNICIAN Ot D50.9 IRON DEFICIENCY ANEMIA, UNSPECIFIED 04/15/2017 BAIMA, WILLIAMS L METALLURGICAL ENGINEERING TECHNICIAN Ot D69.6 THROMBOCYTOPENIA, UNSPECIFIED 04/15/2017 BAIMA, WILLIAMS L METALLURGICAL ENGINEERING TECHNICIAN Ot E78.5 HYPERLIPIDEMIA, UNSPECIFIED 04/15/2017 BAIMA, WILLIAMS L METALLURGICAL ENGINEERING TECHNICIAN Ot I12.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 04/15/2017 BAIMA, WILLIAMS L METALLURGICAL ENGINEERING TECHNICIAN Ot I25.10 ATHSCL HEART DISEASE OF [place] CORONARY 04/15/2017 BAIMA, WILLIAMS L METALLURGICAL ENGINEERING TECHNICIAN Ot I48.91 UNSPECIFIED ATRIAL FIBRILLATION 04/15/2017 BAIMA, WILLIAMS L METALLURGICAL ENGINEERING TECHNICIAN Ot N18.9 CHRONIC KIDNEY DISEASE, UNSPECIFIED 04/15/2017 BAIMA, WILLIAMS L METALLURGICAL ENGINEERING TECHNICIAN Ot Z79.01 PRISON (CURRENT) USE OF ANTICOAGULANT 04/15/2017 BAIMA, WILLIAMS L METALLURGICAL ENGINEERING TECHNICIAN Ot Z79.899 OTHER TRANSPLANT NURSE PRACTITIONER (CURRENT) DRUG THERAPY 04/28/2017 BAIMA, WILLIAMS L METALLURGICAL ENGINEERING TECHNICIAN Ot D50.9 IRON DEFICIENCY ANEMIA, UNSPECIFIED 04/28/2017 BAIMA, WILLIAMS L METALLURGICAL ENGINEERING TECHNICIAN Ot D69.6 THROMBOCYTOPENIA, UNSPECIFIED 04/28/2017 BAIMA, WILLIAMS L METALLURGICAL ENGINEERING TECHNICIAN Ot E78.5 HYPERLIPIDEMIA, UNSPECIFIED 04/28/2017 BAIMA, WILLIAMS L METALLURGICAL ENGINEERING TECHNICIAN Ot I12.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 04/28/2017 BAIMA, WILLIAMS L METALLURGICAL ENGINEERING TECHNICIAN Ot I25.10 ATHSCL HEART DISEASE OF [place] CORONARY 04/28/2017 BAIMA, WILLIAMS L METALLURGICAL ENGINEERING TECHNICIAN Ot I48.91 UNSPECIFIED ATRIAL FIBRILLATION 04/28/2017 BAIMA, WILLIAMS L METALLURGICAL ENGINEERING TECHNICIAN Ot N18.9 CHRONIC KIDNEY DISEASE, UNSPECIFIED 04/28/2017 BAIMA, WILLIAMS L METALLURGICAL ENGINEERING TECHNICIAN Ot Z79.01 PRISON (CURRENT) USE OF ANTICOAGULANT 04/28/2017 BAIMA, WILLIAMS L METALLURGICAL ENGINEERING TECHNICIAN Ot Z79.899 OTHER PRISON (CURRENT) DRUG THERAPY 05/18/2017 Ot 786.50 CHEST PAIN NOS 05/18/2017 Ot 427.31 ATRIAL FIBRILLATION 05/18/2017 Ot V58.69 OTH MED,LT, CURRENT USE 05/18/2017 Ot 511.9 PLEURAL EFFUSION NOS 05/18/2017 Ot 511.9 PLEURAL EFFUSION NOS 05/18/2017 Ot 429.3 CARDIOMEGALY 05/18/2017 Ot 511.9 PLEURAL EFFUSION NOS 05/18/2017 Ot 786.2 COUGH 05/18/2017 Ot V45.01 CARDIAC PACEMAKER IN SITU 05/18/2017 CHAR SHIRLEY FACC, ALI FACP CCDS Ot 427.31 ATRIAL FIBRILLATION 05/18/2017 CHAR SHIRLEY FACC, ALI FACP CCDS Ot 729.81 SWELLING OF LIMB 05/18/2017 CHAR SHIRLEY FACC, ALI FACP CCDS Ot 786.09 RESPIRATORY ABNORM NEC 05/18/2017 CHAR SHIRLEY FACC, ALI FACP CCDS Ot V58.69 OTH MED,LT,CURRENT USE 05/18/2017 BAIMA, WILLIAMS L METALLURGICAL ENGINEERING TECHNICIAN Ot 790.6 ABN BLOOD CHEMISTRY NEC 05/18/2017 BAIMA, WILLIAMS L METALLURGICAL ENGINEERING TECHNICIAN Ot 790.6 ABN BLOOD CHEMISTRY NEC 05/18/2017 BAIMA, WILLIAMS L METALLURGICAL ENGINEERING TECHNICIAN Ot 428.0 CONGESTIVE HEART FAILURE NOS 05/18/2017 BAIMA, WILLIAMS L METALLURGICAL ENGINEERING TECHNICIAN Ot 428.0 CONGESTIVE HEART FAILURE NOS 05/18/2017 CHAR SHIRLEY FACC, ALI FACP CCDS Ot 414.00 CORON ATHEROSCLER NOS TYPE VESSEL, NATIV 05/18/2017 CHAR SHIRLEY FACC, ALI FACP CCDS Ot 429.3 CARDIOMEGALY 05/18/2017 CHAR SHIRLEY FACC, ALI FACP CCDS Ot 786.59 CHEST PAIN NEC 05/18/2017 CHAR SHIRLEY FACC, ALI FACP CCDS Ot 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 05/18/2017 BAIMA, WILLIAMS L METALLURGICAL ENGINEERING TECHNICIAN Ot 272.4 HYPERLIPIDEMIA NEC/NOS 05/18/2017 Ot 272.0 PURE HYPERCHOLESTEROLEM 05/18/2017 Ot 278.00 OBESITY, NOS 05/18/2017 Ot 287.5 THROMBOCYTOPENIA NOS 05/18/2017 Ot 403.90 HYPTNSV CHR KID DIS, UNSPEC, W CHR KD ST 05/18/2017 Ot 414.00 CORON ATHEROSCLER NOS TYPE VESSEL, NATIV 05/18/2017 Ot 427.31 ATRIAL FIBRILLATION 05/18/2017 Ot 447.9 ARTERIAL DISEASE NOS 05/18/2017 Ot 585.9 CHRONIC KIDNEY DISEASE, UNSPECIFIED 05/18/2017 Ot 780.79 OTH MALAISE FATIGUE 05/18/2017 Ot V12.61 PERSONAL HISTORY, PNEUMONIA (RECURRENT) 05/18/2017 Ot V58.61 ANTICOAGULANTS,LT,CURRENT USE 05/18/2017 BAIWILLIAMS CANO L METALLURGICAL ENGINEERING TECHNICIAN Ot 272.4 HYPERLIPIDEMIA NEC/NOS 05/18/2017 BAIMA, WILLIAMS L METALLURGICAL ENGINEERING TECHNICIAN Ot 401.9 HYPERTENSION NOS 05/18/2017 BAIMA, WILLIAMS L METALLURGICAL ENGINEERING TECHNICIAN Ot 414.00 CORON ATHEROSCLER NOS TYPE VESSEL, NATIV 05/18/2017 BAIMA, WILLIAMS L METALLURGICAL ENGINEERING TECHNICIAN Ot 427.31 ATRIAL FIBRILLATION 05/18/2017 BAIMA, WILLIAMS L METALLURGICAL ENGINEERING TECHNICIAN Ot 272.4 HYPERLIPIDEMIA NEC/NOS 05/18/2017 BAIMA, WILLIAMS L METALLURGICAL ENGINEERING TECHNICIAN Ot 401.9 HYPERTENSION NOS 05/18/2017 BAIMA, WILLIAMS L METALLURGICAL ENGINEERING TECHNICIAN Ot 414.9 CHR ISCHEMIC HRT DIS NOS 05/18/2017 BAIMA, WILLIAMS L METALLURGICAL ENGINEERING TECHNICIAN Ot 427.31 ATRIAL FIBRILLATION 05/18/2017 MOI SHIRLEY, JAZIEL R Ot 780.79 OTH MALAISE FATIGUE 05/18/2017 MOI SHIRLEY, JAZIEL R Ot 429.3 CARDIOMEGALY 05/18/2017 MOI SHIRLEY JAZIEL R Ot 786.2 COUGH 05/18/2017 MOI SHIRLEY, JAZIEL R Ot 794.4 ABN KIDNEY FUNCT STUDY 05/18/2017 MOI SHIRLEY, JAZIEL R Ot I48.91 UNSPECIFIED ATRIAL FIBRILLATION 05/18/2017 MOI SHIRLEY, JAZIEL R Ot Z51.81 ENCOUNTER FOR THERAPEUTIC DRUG LEVEL MON 05/18/2017 CHAR SHIRLEY FACC, AGNIESZKA FACP CCDS Ot D69.6 THROMBOCYTOPENIA, UNSPECIFIED 05/18/2017 CHAR SHIRLEY FACC, ALI FACP CCDS Ot E78.0 PURE HYPERCHOLESTEROLEMIA 05/18/2017 CHAR SHIRLEY FACC, ALI FACP CCDS Ot I12.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 05/18/2017 CHAR SHIRLEY FACC, ALI FACP CCDS Ot I25.10 ATHSCL HEART DISEASE OF [place] CORONARY 05/18/2017 CHAR SHIRLEY FACC, ALI FACP CCDS Ot I34.0 NONRHEUMATIC MITRAL (VALVE) INSUFFICIENC 05/18/2017 CHAR SHIRLEY FACC, ALI FACP CCDS Ot I48.0 PAROXYSMAL ATRIAL FIBRILLATION 05/18/2017 CHAR SHIRLEY FACC, ALI FACP CCDS Ot 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 05/18/2017 CHAR SHIRLEY FACC, ALI FACP CCDS Ot N18.2 CHRONIC KIDNEY DISEASE, STAGE 2 (MILD) 05/18/2017 CHAR SHIRLEY FACC, AGNIESZKA FACP CCDS Ot I48.91 UNSPECIFIED ATRIAL FIBRILLATION 05/18/2017 CHAR SHIRLEY FACC, AGNIESZKA FACP CCDS Ot Z79.01 TRANSPLANT NURSE PRACTITIONER (CURRENT) USE OF ANTICOAGULANT 05/18/2017 BAIMA, WILLIAMS L METALLURGICAL ENGINEERING TECHNICIAN Ot D50.9 IRON DEFICIENCY ANEMIA, UNSPECIFIED 05/18/2017 BAIMA, WILLIAMS L METALLURGICAL ENGINEERING TECHNICIAN Ot D69.6 THROMBOCYTOPENIA, UNSPECIFIED 05/18/2017 BAIMA, WILLIAMS L METALLURGICAL ENGINEERING TECHNICIAN Ot E78.5 HYPERLIPIDEMIA, UNSPECIFIED 05/18/2017 BAIMA, WILLIAMS L METALLURGICAL ENGINEERING TECHNICIAN Ot I12.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 05/18/2017 BAIMA, WILLIAMS L METALLURGICAL ENGINEERING TECHNICIAN Ot I25.10 ATHSCL HEART DISEASE OF [place] CORONARY 05/18/2017 BAIMA WILLIAMS L METALLURGICAL ENGINEERING TECHNICIAN Ot I48.91 UNSPECIFIED ATRIAL FIBRILLATION 05/18/2017 BAIMA WILLIAMS L METALLURGICAL ENGINEERING TECHNICIAN Ot N18.9 CHRONIC KIDNEY DISEASE, UNSPECIFIED 05/18/2017 BAIMA, WILLIAMS L METALLURGICAL ENGINEERING TECHNICIAN Ot Z79.01 TRANSPLANT NURSE PRACTITIONER (CURRENT) USE OF ANTICOAGULANT 05/18/2017 BAIMA, WILLIAMS L METALLURGICAL ENGINEERING TECHNICIAN Ot Z79.899 OTHER TRANSPLANT NURSE PRACTITIONER (CURRENT) DRUG THERAPY 05/30/2017 BAIMA, WILLIAMS L METALLURGICAL ENGINEERING TECHNICIAN Ot I48.0 PAROXYSMAL ATRIAL FIBRILLATION 05/30/2017 BAIMA, WILLIAMS L METALLURGICAL ENGINEERING TECHNICIAN Ot Z79.01 TRANSPLANT NURSE PRACTITIONER (CURRENT) USE OF ANTICOAGULANT 06/03/2017 BAIMA, WILLIAMS L METALLURGICAL ENGINEERING TECHNICIAN Ot I48.0 PAROXYSMAL ATRIAL FIBRILLATION 06/03/2017 BAIMA, WILLIAMS L METALLURGICAL ENGINEERING TECHNICIAN Ot Z79.01 TRANSPLANT NURSE PRACTITIONER (CURRENT) USE OF ANTICOAGULANT 06/11/2017 CHAR SHIRLEY FACC, AGNIESZKA FACP CCDS Ot E78.4 OTHER HYPERLIPIDEMIA 06/11/2017 CHAR SHIRLEY FACC, AGNIESZKA FACP CCDS Ot I12.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 06/11/2017 CHAR SHIRLEY FACC, AGNIESZKA FACP CCDS Ot I48.0 PAROXYSMAL ATRIAL FIBRILLATION 06/11/2017 CHAR SHIRLEY FACC, AGNIESZKA FACP CCDS Ot I49.5 SICK SINUS SYNDROME 06/11/2017 CHAR SHIRLEY FACC, AGNIESZKA FACP CCDS Ot 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 06/11/2017 CHAR SHIRLEY [facility], AGNIESZKA FRIEND CCDS Ot N18.2 CHRONIC KIDNEY DISEASE, STAGE 2 (MILD) 06/11/2017 [facility] AGNIESZKA HASSANS Ot Z79.01 TRANSPLANT NURSE PRACTITIONER (CURRENT) USE OF ANTICOAGULANT 06/19/2017 SLOAN NICE MD Ot D50.9 IRON DEFICIENCY ANEMIA, UNSPECIFIED 06/19/2017 SLAON NICE MD Ot D69.6 THROMBOCYTOPENIA, UNSPECIFIED 06/19/2017 SLOAN NICE MD Ot E78.5 HYPERLIPIDEMIA, UNSPECIFIED 06/19/2017 SLOAN NICE MD Ot I12.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 06/19/2017 SLOAN NICE MD Ot I25.10 ATHSCL HEART DISEASE OF [place] CORONARY 06/19/2017 SLOAN NICE MD Ot I48.91 UNSPECIFIED ATRIAL FIBRILLATION 06/19/2017 SLOAN NICE MD Ot N18.9 CHRONIC KIDNEY DISEASE, UNSPECIFIED 06/19/2017 SLOAN NICE MD Ot Z79.01 TRANSPLANT NURSE PRACTITIONER (CURRENT) USE OF ANTICOAGULANT 06/19/2017 SLOAN NICE MD Ot Z79.899 OTHER PRISON (CURRENT) DRUG THERAPY 07/06/2017 SLOAN NICE MD Ot D50.9 IRON DEFICIENCY ANEMIA, UNSPECIFIED 07/06/2017 SLOAN NICE MD Ot D69.6 THROMBOCYTOPENIA, UNSPECIFIED 07/06/2017 SLOAN NICE MD Ot E78.5 HYPERLIPIDEMIA, UNSPECIFIED 07/06/2017 SLOAN NICE MD Ot I12.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 07/06/2017 SLOAN NICE MD Ot I25.10 ATHSCL HEART DISEASE OF [place] CORONARY 07/06/2017 SLOAN NICE MD Ot I48.91 UNSPECIFIED ATRIAL FIBRILLATION 07/06/2017 SLOAN NICE MD Ot N18.9 CHRONIC KIDNEY DISEASE, UNSPECIFIED 07/06/2017 SLOAN NICE MD Ot Z79.01 PRISON (CURRENT) USE OF ANTICOAGULANT 07/06/2017 SLOAN NICE MD Ot Z79.899 OTHER TRANSPLANT NURSE PRACTITIONER (CURRENT) DRUG THERAPY 07/06/2017 SLOAN NICE MD Ot D50.9 IRON DEFICIENCY ANEMIA, UNSPECIFIED 07/06/2017 SLOAN NICE MD Ot D69.6 THROMBOCYTOPENIA, UNSPECIFIED 07/06/2017 SLOAN NICE MD Ot E78.5 HYPERLIPIDEMIA, UNSPECIFIED 07/06/2017 SLOAN NICE MD Ot I12.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 07/06/2017 TEX SHIRLEY, SLOAN Ot I25.10 ATHSCL HEART DISEASE OF [place] CORONARY 07/06/2017 TEX SHIRLEY, SLOAN Ot I48.91 UNSPECIFIED ATRIAL FIBRILLATION 07/06/2017 SLOAN NICE MD Ot N18.9 CHRONIC KIDNEY DISEASE, UNSPECIFIED 07/06/2017 SLOAN NICE MD Ot Z79.01 PRISON (CURRENT) USE OF ANTICOAGULANT 07/06/2017 SLOAN NICE MD Ot Z79.899 OTHER TRANSPLANT NURSE PRACTITIONER (CURRENT) DRUG THERAPY 07/16/2017 BAIMA, WILLIAMS L METALLURGICAL ENGINEERING TECHNICIAN Ot D50.9 IRON DEFICIENCY ANEMIA, UNSPECIFIED 07/16/2017 BAIMA, WILLIAMS L METALLURGICAL ENGINEERING TECHNICIAN Ot D69.6 THROMBOCYTOPENIA, UNSPECIFIED 07/16/2017 BAIMA, WILLIAMS L METALLURGICAL ENGINEERING TECHNICIAN Ot E78.5 HYPERLIPIDEMIA, UNSPECIFIED 07/16/2017 BAIMA, WILLIAMS L METALLURGICAL ENGINEERING TECHNICIAN Ot I12.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 07/16/2017 BAIMA, WILLIAMS L METALLURGICAL ENGINEERING TECHNICIAN Ot I25.10 ATHSCL HEART DISEASE OF [place] CORONARY 07/16/2017 BAIMA, WILLIAMS L METALLURGICAL ENGINEERING TECHNICIAN Ot I48.91 UNSPECIFIED ATRIAL FIBRILLATION 07/16/2017 BAIMA, WILLIAMS L METALLURGICAL ENGINEERING TECHNICIAN Ot N18.9 CHRONIC KIDNEY DISEASE, UNSPECIFIED 07/16/2017 BAIMA, WILLIAMS L METALLURGICAL ENGINEERING TECHNICIAN Ot Z79.01 TRANSPLANT NURSE PRACTITIONER (CURRENT) USE OF ANTICOAGULANT 07/16/2017 BAIMA, WILLIAMS L METALLURGICAL ENGINEERING TECHNICIAN Ot Z79.899 OTHER PRISON (CURRENT) DRUG THERAPY 07/17/2017 BAIMA, WILLIAMS L METALLURGICAL ENGINEERING TECHNICIAN Ot I48.91 UNSPECIFIED ATRIAL FIBRILLATION 07/17/2017 BAIMA, WILLIAMS L METALLURGICAL ENGINEERING TECHNICIAN Ot Z79.01 TRANSPLANT NURSE PRACTITIONER (CURRENT) USE OF ANTICOAGULANT 07/21/2017 BAIMA, WILLIAMS L METALLURGICAL ENGINEERING TECHNICIAN Ot I48.0 PAROXYSMAL ATRIAL FIBRILLATION 07/21/2017 BAIMA, WILLIAMS L METALLURGICAL ENGINEERING TECHNICIAN Ot Z79.01 PRISON (CURRENT) USE OF ANTICOAGULANT 07/27/2017 SLOAN NICE MD Ot D50.9 IRON DEFICIENCY ANEMIA, UNSPECIFIED 07/27/2017 SLOAN NICE MD Ot D69.6 THROMBOCYTOPENIA, UNSPECIFIED 07/27/2017 SLOAN NICE MD Ot E78.5 HYPERLIPIDEMIA, UNSPECIFIED 07/27/2017 SLOAN NICE MD Ot I12.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 07/27/2017 SLOAN NICE MD Ot I25.10 ATHSCL HEART DISEASE OF [place] CORONARY 07/27/2017 SLOAN NICE MD Ot I48.91 UNSPECIFIED ATRIAL FIBRILLATION 07/27/2017 SLOAN NICE MD Ot N18.9 CHRONIC KIDNEY DISEASE, UNSPECIFIED 07/27/2017 SLOAN NICE MD Ot Z79.01 PRISON (CURRENT) USE OF ANTICOAGULANT 07/27/2017 SLOAN NICE MD Ot Z79.899 OTHER TRANSPLANT NURSE PRACTITIONER (CURRENT) DRUG THERAPY 08/04/2017 BAIMA, WILLIAMS L METALLURGICAL ENGINEERING TECHNICIAN Ot I48.91 UNSPECIFIED ATRIAL FIBRILLATION 08/04/2017 BAIMA, WILLIAMS L METALLURGICAL ENGINEERING TECHNICIAN Ot Z79.01 PRISON (CURRENT) USE OF ANTICOAGULANT 09/13/2017 BAIMA WILLIAMS L METALLURGICAL ENGINEERING TECHNICIAN Ot I48.91 UNSPECIFIED ATRIAL FIBRILLATION 09/13/2017 BAIMA WILLIAMS L METALLURGICAL ENGINEERING TECHNICIAN Ot Z79.01 TRANSPLANT NURSE PRACTITIONER (CURRENT) USE OF ANTICOAGULANT 09/16/2017 SLOAN NICE MD Ot D50.9 IRON DEFICIENCY ANEMIA, UNSPECIFIED 09/16/2017 SLOAN NICE MD Ot D69.6 THROMBOCYTOPENIA, UNSPECIFIED 09/16/2017 SLOAN NICE MD Ot E78.5 HYPERLIPIDEMIA, UNSPECIFIED 09/16/2017 SLOAN NICE MD Ot I12.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 09/16/2017 SLOAN NICE MD Ot I25.10 ATHSCL HEART DISEASE OF [place] CORONARY 09/16/2017 SLOAN NICE MD Ot I48.91 UNSPECIFIED ATRIAL FIBRILLATION 09/16/2017 SLOAN NICE MD Ot N18.9 CHRONIC KIDNEY DISEASE, UNSPECIFIED 09/16/2017 SLOAN NICE MD Ot Z79.01 PRISON (CURRENT) USE OF ANTICOAGULANT 09/16/2017 SLOAN NICE MD Ot Z79.899 OTHER TRANSPLANT NURSE PRACTITIONER (CURRENT) DRUG THERAPY 09/17/2017 SLOAN NICE MD Ot D50.9 IRON DEFICIENCY ANEMIA, UNSPECIFIED 09/17/2017 SLOAN NICE MD Ot D69.6 THROMBOCYTOPENIA, UNSPECIFIED 09/17/2017 SLOAN NICE MD Ot E78.5 HYPERLIPIDEMIA, UNSPECIFIED 09/17/2017 SLOAN NICE MD Ot I12.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 09/17/2017 SLOAN NICE MD Ot I25.10 ATHSCL HEART DISEASE OF [place] CORONARY 09/17/2017 SLOAN NICE MD Ot I48.91 UNSPECIFIED ATRIAL FIBRILLATION 09/17/2017 SLOAN NICE MD Ot N18.9 CHRONIC KIDNEY DISEASE, UNSPECIFIED 09/17/2017 SLOAN NICE MD Ot Z79.01 TRANSPLANT NURSE PRACTITIONER (CURRENT) USE OF ANTICOAGULANT 09/17/2017 SLOAN NICE MD Ot Z79.899 OTHER TRANSPLANT NURSE PRACTITIONER (CURRENT) DRUG THERAPY 09/19/2017 BAIMA, WILLIAMS L METALLURGICAL ENGINEERING TECHNICIAN Ot I48.91 UNSPECIFIED ATRIAL FIBRILLATION 09/19/2017 BAIMA, WILLIAMS L METALLURGICAL ENGINEERING TECHNICIAN Ot Z79.01 TRANSPLANT NURSE PRACTITIONER (CURRENT) USE OF ANTICOAGULANT 10/08/2017 BAIMA, WILLIAMS L METALLURGICAL ENGINEERING TECHNICIAN Ot I48.91 UNSPECIFIED ATRIAL FIBRILLATION 10/08/2017 BAIMA, WILLIAMS L METALLURGICAL ENGINEERING TECHNICIAN Ot Z79.01 PRISON (CURRENT) USE OF ANTICOAGULANT 10/08/2017 BAIMA, WILLIAMS L METALLURGICAL ENGINEERING TECHNICIAN Ot I48.91 UNSPECIFIED ATRIAL FIBRILLATION 10/08/2017 BAIMA, WILLIAMS L METALLURGICAL ENGINEERING TECHNICIAN Ot Z79.01 TRANSPLANT NURSE PRACTITIONER (CURRENT) USE OF ANTICOAGULANT 10/13/2017 BAIMA, WILLIAMS L METALLURGICAL ENGINEERING TECHNICIAN Ot I48.91 UNSPECIFIED ATRIAL FIBRILLATION 10/13/2017 BAIMA, WILLIAMS L METALLURGICAL ENGINEERING TECHNICIAN Ot Z79.01 TRANSPLANT NURSE PRACTITIONER (CURRENT) USE OF ANTICOAGULANT 11/02/2017 BAIMA, WILLIAMS L METALLURGICAL ENGINEERING TECHNICIAN Ot I48.91 UNSPECIFIED ATRIAL FIBRILLATION 11/02/2017 BAIMA, WILLIAMS L METALLURGICAL ENGINEERING TECHNICIAN Ot Z79.01 TRANSPLANT NURSE PRACTITIONER (CURRENT) USE OF ANTICOAGULANT 11/16/2017 CHAR SHIRLEY FACC, AGNIESZKA FACP CCDS Ot E66.8 OTHER OBESITY 11/16/2017 CHAR SHIRLEY FACC, ALI FACP CCDS Ot E78.5 HYPERLIPIDEMIA, UNSPECIFIED 11/16/2017 CHAR SHIRLEY FACC, ALI FACP CCDS Ot I12.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 11/16/2017 CHAR SHIRLEY FACC, ALI FACP CCDS Ot I25.10 ATHSCL HEART DISEASE OF [place] CORONARY 11/16/2017 CHAR SHIRLEY FACC, ALI FACP CCDS Ot I48.0 PAROXYSMAL ATRIAL FIBRILLATION 11/16/2017 CHAR SHIRLEY FACC, ALI FACP CCDS Ot I65.29 OCCLUSION AND STENOSIS OF UNSPECIFIED CA 11/16/2017 CHAR SHIRLEY FACC, ALI FACP CCDS Ot N18.2 CHRONIC KIDNEY DISEASE, STAGE 2 (MILD) 11/16/2017 CHAR SHIRLEY FACC, ALI FACP CCDS Ot Z79.01 TRANSPLANT NURSE PRACTITIONER (CURRENT) USE OF ANTICOAGULANT 11/16/2017 CHAR SHIRLEY FACC, ALI FACP CCDS Ot Z95.0 PRESENCE OF CARDIAC PACEMAKER 11/16/2017 CHAR SHIRLEY FACC, ALI FACP CCDS Ot E66.8 OTHER OBESITY 11/16/2017 CHAR SHIRLEY FACC, ALI FACP CCDS Ot E78.5 HYPERLIPIDEMIA, UNSPECIFIED 11/16/2017 CHAR SHIRLEY FACC, ALI FACP CCDS Ot I12.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 11/16/2017 CHAR BURGERC, ALI FACP CCDS Ot I25.10 ATHSCL HEART DISEASE OF [place] CORONARY 11/16/2017 CHAR SHIRLEY FACC, ALI FACP CCDS Ot I48.0 PAROXYSMAL ATRIAL FIBRILLATION 11/16/2017 CHAR BURGERC, ALI FACP CCDS Ot I65.29 OCCLUSION AND STENOSIS OF UNSPECIFIED CA 11/16/2017 CHAR BURGERC, ALI FACP CCDS Ot N18.2 CHRONIC KIDNEY DISEASE, STAGE 2 (MILD) 11/16/2017 CHAR BURGERC, ALI FACP CCDS Ot Z79.01 PRISON (CURRENT) USE OF ANTICOAGULANT 11/16/2017 CHAR BURGERC, ALI FACP CCDS Ot Z95.0 PRESENCE OF CARDIAC PACEMAKER 11/25/2017 CHAR SHIRLEY FACC, ALI FACP CCDS Ot I12.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 11/25/2017 CHAR SHIRLEY FACC, ALI FACP CCDS Ot I48.0 PAROXYSMAL ATRIAL FIBRILLATION 11/25/2017 CHAR SHIRLEY FACC, ALI FACP CCDS Ot N18.2 CHRONIC KIDNEY DISEASE, STAGE 2 (MILD) 11/25/2017 CHAR SHIRLEY FACC, ALI FACP CCDS Ot Z79.01 TRANSPLANT NURSE PRACTITIONER (CURRENT) USE OF ANTICOAGULANT 11/25/2017 CHAR BURGERC, ALI FACP CCDS Ot I12.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 11/25/2017 CHAR SHIRLEY FACC, ALI FACP CCDS Ot I48.0 PAROXYSMAL ATRIAL FIBRILLATION 11/25/2017 CHAR BURGERC, ALI FACP CCDS Ot N18.2 CHRONIC KIDNEY DISEASE, STAGE 2 (MILD) 11/25/2017 CHAR SHIRLEY FACC, ALI FACP CCDS Ot Z79.01 TRANSPLANT NURSE PRACTITIONER (CURRENT) USE OF ANTICOAGULANT 12/03/2017 CHAR SHIRLEY FACC, ALI FACP CCDS Ot E66.8 OTHER OBESITY 12/03/2017 CHAR SHIRLEY FACC, ALI FACP CCDS Ot E78.5 HYPERLIPIDEMIA, UNSPECIFIED 12/03/2017 CHAR SHIRLEY FACC, ALI FACP CCDS Ot I12.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 12/03/2017 CHAR SHIRLEY FACC, ALI FACP CCDS Ot I25.10 ATHSCL HEART DISEASE OF [place] CORONARY 12/03/2017 CHAR SHIRLEY FACC, ALI FACP CCDS Ot I48.0 PAROXYSMAL ATRIAL FIBRILLATION 12/03/2017 CHAR SHIRLEY FACC, ALI FACP CCDS Ot I65.29 OCCLUSION AND STENOSIS OF UNSPECIFIED CA 12/03/2017 CHAR SHIRLEY [facility], ALI FACP CCDS Ot N18.2 CHRONIC KIDNEY DISEASE, STAGE 2 (MILD) 12/03/2017 CHAR SHIRLEY [facility], ALI FACP CCDS Ot Z79.01 TRANSPLANT NURSE PRACTITIONER (CURRENT) USE OF ANTICOAGULANT 12/03/2017 CHAR SHIRLEY [facility], ALI FACP CCDS Ot Z95.0 PRESENCE OF CARDIAC PACEMAKER 12/11/2017 CHAR SHIRLEY [facility], ALI FACP CCDS Ot I48.91 UNSPECIFIED ATRIAL FIBRILLATION 12/11/2017 CHAR SHIRLEY [facility], ALI FACP CCDS Ot Z79.01 PRISON (CURRENT) USE OF ANTICOAGULANT 12/13/2017 BAIMA WILLIAMS L METALLURGICAL ENGINEERING TECHNICIAN Ot E66.8 OTHER OBESITY 12/13/2017 BAIMA, WILLIAMS L METALLURGICAL ENGINEERING TECHNICIAN Ot E78.5 HYPERLIPIDEMIA, UNSPECIFIED 12/13/2017 BAIMA, WILLIAMS L METALLURGICAL ENGINEERING TECHNICIAN Ot I12.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 12/13/2017 BAIMA, WILLIAMS L METALLURGICAL ENGINEERING TECHNICIAN Ot I25.10 ATHSCL HEART DISEASE OF [place] CORONARY 12/13/2017 BAIMA, WILLIAMS L METALLURGICAL ENGINEERING TECHNICIAN Ot I48.0 PAROXYSMAL ATRIAL FIBRILLATION 12/13/2017 BAIMA, WILLIAMS L METALLURGICAL ENGINEERING TECHNICIAN Ot I48.91 UNSPECIFIED ATRIAL FIBRILLATION 12/13/2017 BAIMA, WILLIAMS L METALLURGICAL ENGINEERING TECHNICIAN Ot I65.29 OCCLUSION AND STENOSIS OF UNSPECIFIED CA 12/13/2017 BAIWILLIAMS CANO L METALLURGICAL ENGINEERING TECHNICIAN Ot N18.2 CHRONIC KIDNEY DISEASE, STAGE 2 (MILD) 12/13/2017 BAIMAJEREMIAHWILLAIMS L METALLURGICAL ENGINEERING TECHNICIAN Ot Z79.01 TRANSPLANT NURSE PRACTITIONER (CURRENT) USE OF ANTICOAGULANT 12/13/2017 BAIMAJEREMIAHWILLIAMS L METALLURGICAL ENGINEERING TECHNICIAN Ot Z95.0 PRESENCE OF CARDIAC PACEMAKER 12/14/2017 BAIMA WILLIAMS L METALLURGICAL ENGINEERING TECHNICIAN Ot I48.91 UNSPECIFIED ATRIAL FIBRILLATION 12/14/2017 BAIMA, WILLIAMS L METALLURGICAL ENGINEERING TECHNICIAN Ot Z79.01 PRISON (CURRENT) USE OF ANTICOAGULANT 12/15/2017 BAIMAJEREMIAHWILLIAMS L METALLURGICAL ENGINEERING TECHNICIAN Ot I48.91 UNSPECIFIED ATRIAL FIBRILLATION 12/15/2017 BAIMA, WILLIAMS L METALLURGICAL ENGINEERING TECHNICIAN Ot Z79.01 PRISON (CURRENT) USE OF ANTICOAGULANT 12/18/2017 CHAR SHIRLEY FACC, ALI FACP CCDS Ot I12.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 12/18/2017 CHAR SHIRLEY FACC, ALI FACP CCDS Ot I48.0 PAROXYSMAL ATRIAL FIBRILLATION 12/18/2017 CHAR SHIRLEY FACC, ALI FACP CCDS Ot N18.2 CHRONIC KIDNEY DISEASE, STAGE 2 (MILD) 12/18/2017 CHAR SHIRLEY FACC, ALI FACP CCDS Ot Z79.01 PRISON (CURRENT) USE OF ANTICOAGULANT 12/19/2017 SCOTT WILLIAMS L METALLURGICAL ENGINEERING TECHNICIAN Ot I48.91 UNSPECIFIED ATRIAL FIBRILLATION 12/19/2017 BAIMA WILLIAMS L METALLURGICAL ENGINEERING TECHNICIAN Ot Z79.01 TRANSPLANT NURSE PRACTITIONER (CURRENT) USE OF ANTICOAGULANT 12/30/2017 JAZIEL PRATER MD Ot Z29.8 ENCOUNTER FOR OTHER SPECIFIED PROPHYLACT 12/31/2017 CHAR SHIRLEY FACC, ALI FACP CCDS Ot I48.91 UNSPECIFIED ATRIAL FIBRILLATION 12/31/2017 CHAR SHIRLEY FACC, ALI FACP CCDS Ot Z79.01 TRANSPLANT NURSE PRACTITIONER (CURRENT) USE OF ANTICOAGULANT 01/19/2018 DORISMA WILLIAMS L METALLURGICAL ENGINEERING TECHNICIAN Ot I48.91 UNSPECIFIED ATRIAL FIBRILLATION 01/19/2018 BAIMA WILLIAMS L METALLURGICAL ENGINEERING TECHNICIAN Ot Z51.81 ENCOUNTER FOR THERAPEUTIC DRUG LEVEL MON 01/19/2018 DORISMA WILLIAMS L METALLURGICAL ENGINEERING TECHNICIAN Ot Z79.01 PRISON (CURRENT) USE OF ANTICOAGULANT 01/31/2018 SEGLIE MD, JAZIEL R Ot Z29.8 ENCOUNTER FOR OTHER SPECIFIED PROPHYLACT 03/03/2018 MOI SHIRLEY JAZIEL R Ot Z29.8 ENCOUNTER FOR OTHER SPECIFIED PROPHYLACT 03/14/2018 WILLIAMS CHAVEZ L METALLURGICAL ENGINEERING TECHNICIAN Ot I48.91 UNSPECIFIED ATRIAL FIBRILLATION 03/14/2018 SCOTT WILLIAMS L METALLURGICAL ENGINEERING TECHNICIAN Ot Z51.81 ENCOUNTER FOR THERAPEUTIC DRUG LEVEL MON 03/14/2018 WILLIAMS CHAVEZ METALLURGICAL ENGINEERING TECHNICIAN Ot Z79.01 PRISON (CURRENT) USE OF ANTICOAGULANT 03/16/2018 WILLIAMS CHAVEZ L METALLURGICAL ENGINEERING TECHNICIAN Ot I48.91 UNSPECIFIED ATRIAL FIBRILLATION 03/16/2018 WILLIAMS CHAVEZ L METALLURGICAL ENGINEERING TECHNICIAN Ot Z51.81 ENCOUNTER FOR THERAPEUTIC DRUG LEVEL MON 03/16/2018 WILLIAMS CHAVEZ METALLURGICAL ENGINEERING TECHNICIAN Ot Z79.01 TRANSPLANT NURSE PRACTITIONER (CURRENT) USE OF ANTICOAGULANT 04/04/2018 MOI SHIRLEY JAZIEL R Ot Z29.8 ENCOUNTER FOR OTHER SPECIFIED PROPHYLACT 05/05/2018 FATIMAH PRATER MDYD R Ot Z29.8 ENCOUNTER FOR OTHER SPECIFIED PROPHYLACT 05/06/2018 MOI SHIRLEY JAZIEL R Ot Z29.8 ENCOUNTER FOR OTHER SPECIFIED PROPHYLACT 05/20/2018 WILLIAMS CHAVEZ METALLURGICAL ENGINEERING TECHNICIAN Ot I48.91 UNSPECIFIED ATRIAL FIBRILLATION 05/20/2018 WILLIAMS CHAVEZ METALLURGICAL ENGINEERING TECHNICIAN Ot Z51.81 ENCOUNTER FOR THERAPEUTIC DRUG LEVEL MON 05/20/2018 WILLIAMS CHAVEZ METALLURGICAL ENGINEERING TECHNICIAN Ot Z79.01 TRANSPLANT NURSE PRACTITIONER (CURRENT) USE OF ANTICOAGULANT 05/27/2018 CHAR SHIRLEY FACC, AGNIESZKA FACP CCDS Ot I10 ESSENTIAL (PRIMARY) HYPERTENSION 05/27/2018 CHAR SHIRLEY FACC, AGNIESZKA FACP CCDS Ot I25.10 ATHSCL HEART DISEASE OF [place] CORONARY 05/27/2018 CHAR SHIRLEY FACC, AGNIESZKA FACP CCDS Ot I48.2 CHRONIC ATRIAL FIBRILLATION 05/27/2018 CHAR SHIRLEY FACC, AGNIESZKA FACP CCDS Ot 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 AN 05/27/2018 CHAR SHIRLEY FACC, AGNIESZKA FACP CCDS Ot R06.02 SHORTNESS OF BREATH 05/27/2018 CHAR SHIRLEY FACC, AGNIESZKA FACP CCDS Ot Z79.01 PRISON (CURRENT) USE OF ANTICOAGULANT 06/09/2018 MOI SHIRLEY JAZIEL R Ot Z29.8 ENCOUNTER FOR OTHER SPECIFIED PROPHYLACT 06/10/2018 CHAR SHIRLEY FACC, ALI FACP CCDS Ot 427.31 ATRIAL FIBRILLATION 06/10/2018 CHAR SHIRLEY FACC, ALI FACP CCDS Ot 729.81 SWELLING OF LIMB 06/10/2018 CHAR SHIRLEY FACC, ALI FACP CCDS Ot 786.09 RESPIRATORY ABNORM NEC 06/10/2018 CHAR SHIRLEY FACC, ALI FACP CCDS Ot V58.69 OTH MED,LT,CURRENT USE 06/10/2018 BAIMA, WILLIAMS L METALLURGICAL ENGINEERING TECHNICIAN Ot 790.6 ABN BLOOD CHEMISTRY NEC 06/10/2018 BAIMA, WILLIAMS L METALLURGICAL ENGINEERING TECHNICIAN Ot 790.6 ABN BLOOD CHEMISTRY NEC 06/10/2018 BAIMA, WILLIAMS L METALLURGICAL ENGINEERING TECHNICIAN Ot 428.0 CONGESTIVE HEART FAILURE NOS 06/10/2018 BAIMA, WILLIAMS L METALLURGICAL ENGINEERING TECHNICIAN Ot 428.0 CONGESTIVE HEART FAILURE NOS 06/10/2018 CHAR SHIRLEY FACC, ALI FACP CCDS Ot 414.00 CORON ATHEROSCLER NOS TYPE VESSEL, NATIV 06/10/2018 CHAR SHIRLEY FACC, ALI FACP CCDS Ot 429.3 CARDIOMEGALY 06/10/2018 CHAR SHIRLEY FACC, ALI FACP CCDS Ot 786.59 CHEST PAIN NEC 06/10/2018 CHAR SHIRLEY FACC, ALI FACP CCDS Ot 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 06/10/2018 BAIMA, WILLIAMS L METALLURGICAL ENGINEERING TECHNICIAN Ot 272.4 HYPERLIPIDEMIA NEC/NOS 06/10/2018 Ot 272.0 PURE HYPERCHOLESTEROLEM 06/10/2018 Ot 278.00 OBESITY, NOS 06/10/2018 Ot 287.5 THROMBOCYTOPENIA NOS 06/10/2018 Ot 403.90 HYPTNSV CHR 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, UNSPEC, W CHR KD ST 06/10/2018 Ot 414.00 CORON ATHEROSCLER NOS TYPE VESSEL, NATIV 06/10/2018 Ot 427.31 ATRIAL FIBRILLATION 06/10/2018 Ot 447.9 ARTERIAL DISEASE NOS 06/10/2018 Ot 585.9 CHRONIC KIDNEY DISEASE, UNSPECIFIED 06/10/2018 Ot 780.79 OTH MALAISE FATIGUE 06/10/2018 Ot V12.61 PERSONAL HISTORY, PNEUMONIA (RECURRENT) 06/10/2018 Ot V58.61 ANTICOAGULANTS,LT,CURRENT USE 06/10/2018 BAIMA, WILLIAMS L METALLURGICAL ENGINEERING TECHNICIAN Ot 272.4 HYPERLIPIDEMIA NEC/NOS 06/10/2018 BAIMA, WILLIAMS L METALLURGICAL ENGINEERING TECHNICIAN Ot 401.9 HYPERTENSION NOS 06/10/2018 WILLIAMS CHAVEZ L METALLURGICAL ENGINEERING TECHNICIAN Ot 414.00 CORON ATHEROSCLER NOS TYPE VESSEL, NATIV 06/10/2018 WILLIAMS CHAVEZ L METALLURGICAL ENGINEERING TECHNICIAN Ot 427.31 ATRIAL FIBRILLATION 06/10/2018 WILLIAMS CHAVEZ L METALLURGICAL ENGINEERING TECHNICIAN Ot 272.4 HYPERLIPIDEMIA NEC/NOS 06/10/2018 SCOTT WILLIAMS L METALLURGICAL ENGINEERING TECHNICIAN Ot 401.9 HYPERTENSION NOS 06/10/2018 DORISWILLIAMS CANO L METALLURGICAL ENGINEERING TECHNICIAN Ot 414.9 CHR ISCHEMIC HRT DIS NOS 06/10/2018 WILLIAMS CHAVEZ L METALLURGICAL ENGINEERING TECHNICIAN Ot 427.31 ATRIAL FIBRILLATION 06/10/2018 MOI SHIRLEY, JAZIEL R Ot 780.79 OTH MALAISE FATIGUE 06/10/2018 MOI SHIRLEY, JAZIEL R Ot 429.3 CARDIOMEGALY 06/10/2018 MOI SHIRLEY, JAZIEL R Ot 786.2 COUGH 06/10/2018 MOI SHIRLEY, JAZIEL R Ot 794.4 ABN KIDNEY FUNCT STUDY 06/10/2018 MOI SHIRLEY JAZIEL R Ot I48.91 UNSPECIFIED ATRIAL FIBRILLATION 06/10/2018 MOI SHIRLEY JAZIEL R Ot Z51.81 ENCOUNTER FOR THERAPEUTIC DRUG LEVEL MON 06/10/2018 CHAR SHIRLEY FACC, AGNIESZKA FACP CCDS Ot D69.6 THROMBOCYTOPENIA, UNSPECIFIED 06/10/2018 CHAR SHIRLEY FACC, ALI FACP CCDS Ot E78.0 PURE HYPERCHOLESTEROLEMIA 06/10/2018 CHAR SHIRLEY FACC, ALI FACP CCDS Ot I12.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 06/10/2018 CHAR SHIRLEY FACC, ALI FACP CCDS Ot I25.10 ATHSCL HEART DISEASE OF [place] CORONARY 06/10/2018 CHAR SHIRLEY FACC, ALI FACP CCDS Ot I34.0 NONRHEUMATIC MITRAL (VALVE) INSUFFICIENC 06/10/2018 CHAR SHIRLEY FACC, ALI FACP CCDS Ot I48.0 PAROXYSMAL ATRIAL FIBRILLATION 06/10/2018 CHAR SHIRLEY FACC, ALI FACP CCDS Ot 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 06/10/2018 CHAR SHIRLEY FACC, ALI FACP CCDS Ot N18.2 CHRONIC KIDNEY DISEASE, STAGE 2 (MILD) 06/10/2018 CHAR SHIRLEY FACC, ALI FACP CCDS Ot I48.91 UNSPECIFIED ATRIAL FIBRILLATION 06/10/2018 CHAR SHIRLEY FACC, ALI FACP CCDS Ot Z79.01 TRANSPLANT NURSE PRACTITIONER (CURRENT) USE OF ANTICOAGULANT 06/10/2018 CHAR SHIRLEY FACC, ALI FACP CCDS Ot E78.4 OTHER HYPERLIPIDEMIA 06/10/2018 CHAR SHIRLEY FACC, ALI FACP CCDS Ot I12.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 06/10/2018 CHAR SHIRLEY FACC, ALI FACP CCDS Ot I48.0 PAROXYSMAL ATRIAL FIBRILLATION 06/10/2018 CHAR SHIRLEY FACC, ALI FACP CCDS Ot I49.5 SICK SINUS SYNDROME 06/10/2018 CHAR SHIRLEY FACC, ALI FACP CCDS Ot 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 06/10/2018 CHAR SHIRLEY FACC, ALI FACP CCDS Ot N18.2 CHRONIC KIDNEY DISEASE, STAGE 2 (MILD) 06/10/2018 CHAR SHIRLEY FACC, ALI FACP CCDS Ot Z79.01 PRISON (CURRENT) USE OF ANTICOAGULANT 06/10/2018 SLOAN NICE MD Ot D50.9 IRON DEFICIENCY ANEMIA, UNSPECIFIED 06/10/2018 SLOAN NICE MD Ot D69.6 THROMBOCYTOPENIA, UNSPECIFIED 06/10/2018 SLOAN NICE MD Ot E78.5 HYPERLIPIDEMIA, UNSPECIFIED 06/10/2018 SLOAN NICE MD Ot I12.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 06/10/2018 SLOAN NICE MD Ot I25.10 ATHSCL HEART DISEASE OF [place] CORONARY 06/10/2018 SLOAN NICE MD Ot I48.91 UNSPECIFIED ATRIAL FIBRILLATION 06/10/2018 SLOAN NICE MD Ot N18.9 CHRONIC KIDNEY DISEASE, UNSPECIFIED 06/10/2018 SLOAN NICE MD Ot Z79.01 TRANSPLANT NURSE PRACTITIONER (CURRENT) USE OF ANTICOAGULANT 06/10/2018 SLOAN NICE MD Ot Z79.899 OTHER PRISON (CURRENT) DRUG THERAPY 06/10/2018 CHAR SHIRLEY FACC, ALI FACP CCDS Ot E66.8 OTHER OBESITY 06/10/2018 CHAR SHIRLEY FACC, ALI FACP CCDS Ot E78.5 HYPERLIPIDEMIA, UNSPECIFIED 06/10/2018 CHAR SHIRLEY FACC, ALI FACP CCDS Ot I12.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 06/10/2018 CHAR SHIRLEY FACC, ALI FACP CCDS Ot I25.10 ATHSCL HEART DISEASE OF [place] CORONARY 06/10/2018 CHAR SHIRLEY FACC, ALI FACP CCDS Ot I48.0 PAROXYSMAL ATRIAL FIBRILLATION 06/10/2018 CHAR SHIRLEY FACC, ALI FACP CCDS Ot I65.29 OCCLUSION AND STENOSIS OF UNSPECIFIED CA 06/10/2018 CHAR SHIRLEY FACC, ALI FACP CCDS Ot N18.2 CHRONIC KIDNEY DISEASE, STAGE 2 (MILD) 06/10/2018 CHAR SHIRLEY FACC, ALI FACP CCDS Ot Z79.01 TRANSPLANT NURSE PRACTITIONER (CURRENT) USE OF ANTICOAGULANT 06/10/2018 CHAR SHIRLEY FACC, ALI FACP CCDS Ot Z95.0 PRESENCE OF CARDIAC PACEMAKER 06/10/2018 CHAR SHIRLEY FACC, ALI FACP CCDS Ot I12.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 06/10/2018 CHAR SHIRLEY FACC, ALI FACP CCDS Ot I48.0 PAROXYSMAL ATRIAL FIBRILLATION 06/10/2018 CHAR SHIRLEY FACC, ALI FACP CCDS Ot N18.2 CHRONIC KIDNEY DISEASE, STAGE 2 (MILD) 06/10/2018 CHAR SHIRLEY FACC, ALI FACP CCDS Ot Z79.01 TRANSPLANT NURSE PRACTITIONER (CURRENT) USE OF ANTICOAGULANT 06/10/2018 WILLIAMS CHAVEZ METALLURGICAL ENGINEERING TECHNICIAN Ot I48.91 UNSPECIFIED ATRIAL FIBRILLATION 06/10/2018 WILLIAMS CHAVEZ METALLURGICAL ENGINEERING TECHNICIAN Ot Z51.81 ENCOUNTER FOR THERAPEUTIC DRUG LEVEL MON 06/10/2018 WILLIAMS CHAVEZ METALLURGICAL ENGINEERING TECHNICIAN Ot Z79.01 PRISON (CURRENT) USE OF ANTICOAGULANT 06/10/2018 CHAR SHIRLEY FACC, ALI FACP CCDS Ot I10 ESSENTIAL (PRIMARY) HYPERTENSION 06/10/2018 CHAR SHIRLEY FACC, ALI FACP CCDS Ot I25.10 ATHSCL HEART DISEASE OF [place] CORONARY 06/10/2018 CHAR SHIRLEY FACC, ALI FACP CCDS Ot I48.2 CHRONIC ATRIAL FIBRILLATION 06/10/2018 CHAR SHIRLEY FACC, ALI FACP CCDS Ot 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 AN 06/10/2018 CHAR SHIRLEY FACC, ALI FACP CCDS Ot R06.02 SHORTNESS OF BREATH 06/10/2018 CHAR SHIRLEY FACC, ALI FACP CCDS Ot Z79.01 PRISON (CURRENT) USE OF ANTICOAGULANT 06/14/2018 CHAR SHIRLEY FACC, ALI FACP CCDS Ot E87.5 HYPERKALEMIA 06/14/2018 CHAR SHIRLEY FACC, ALI FACP CCDS Ot I08.3 COMB RHEUMATIC DISORD OF MITRAL, AORTIC 06/14/2018 CHAR SHIRLEY FACC, ALI FACP CCDS Ot I10 ESSENTIAL (PRIMARY) HYPERTENSION 06/14/2018 CHAR SHIRLEY FACC, ALI FACP CCDS Ot I25.10 ATHSCL HEART DISEASE OF [place] CORONARY 06/14/2018 CHAR SHIRLEY FACC, AGNIESZKA FACP CCDS Ot I48.2 CHRONIC ATRIAL FIBRILLATION 06/14/2018 CHAR SHIRLEY FACC, AGNIESZKA FACP CCDS Ot R06.02 SHORTNESS OF BREATH 06/14/2018 CHAR SHIRLEY FACC, ALI FACP CCDS Ot Z79.01 PRISON (CURRENT) USE OF ANTICOAGULANT Procedures Code Description Performed By Performed On 37.72 INITIAL INSERT TRANS LEADS INTO ATRIUM 03/23/2012 37.83 INITIAL INSERTION OF DUAL- CHAMBER DEVICE 03/23/2012 34.91 THORACENTESIS 03/26/2012 45.16 ESOPHAGOGASTRODUODENOSCOPY [ EGD] W/CLOSE 11/19/2012 45.23 COLONOSCOPY 11/19/2012 Results Test Result Range PT panel in platelet poor plasma by coagulation assay - 11/12/16 12:22 Prothrombin time (PT) in platelet poor plasma by coagulation assay 25.3 s 12.2-14.7 INR in platelet poor plasma or blood by coagulation assay 2.3 0.8-1.4 PT panel in platelet poor plasma by coagulation assay - 12/12/16 13:39 Prothrombin time (PT) in platelet poor plasma by coagulation assay 27.9 s 12.2-14.7 INR in platelet poor plasma or blood by coagulation assay 2.6 0.8-1.4 PT panel in platelet poor plasma by coagulation assay - 01/14/17 14:28 Prothrombin time (PT) in platelet poor plasma by coagulation assay 23.9 s 12.2-14.7 INR in platelet poor plasma or blood by coagulation assay 2.2 0.8-1.4 PT panel in platelet poor plasma by coagulation assay - 02/12/17 10:47 Prothrombin time (PT) in platelet poor plasma by coagulation assay 24.7 s 12.2-14.7 INR in platelet poor plasma or blood by coagulation assay 2.3 0.8-1.4 PT panel in platelet poor plasma by coagulation assay - 03/16/17 12:15 Prothrombin time (PT) in platelet poor plasma by coagulation assay 26.8 s 12.2-14.7 INR in platelet poor plasma or blood by coagulation assay 2.5 0.8-1.4 PT panel in platelet poor plasma by coagulation assay - 07/15/17 11:45 Prothrombin time (PT) in platelet poor plasma by coagulation assay 20.8 s 12.2-14.7 INR in platelet poor plasma or blood by coagulation assay 1.8 0.8-1.4 PT panel in platelet poor plasma by coagulation assay - 10/22/17 10:49 Prothrombin time (PT) in platelet poor plasma by coagulation assay 26.3 s 12.2-14.7 INR in platelet poor plasma or blood by coagulation assay 2.4 0.8-1.4 PT panel in platelet poor plasma by coagulation assay - 02/12/18 11:11 Prothrombin time (PT) in platelet poor plasma by coagulation assay 24.7 s 12.2-14.7 INR in platelet poor plasma or blood by coagulation assay 2.2 0.8-1.4 Complete blood count (CBC) with automated white blood cell (WBC) differential - 05/25/18 09:27 Blood leukocytes automated count (number/volume) 5.2 10*3/uL 4.3-11.0 Blood erythrocytes automated count (number/volume) 3.93 10*6/uL 4.35-5.85 Venous blood hemoglobin measurement (mass/volume) 12.9 g/dL 13.3-17.7 Blood hematocrit (volume fraction) 38 % 40-54 Automated erythrocyte mean corpuscular volume 97 [foz_us] 80-99 Automated erythrocyte mean corpuscular hemoglobin (mass per erythrocyte) 33 pg 25-34 Automated erythrocyte mean corpuscular hemoglobin concentration measurement ( mass/volume) 34 g/dL 32-36 Automated erythrocyte distribution width ratio 13.2 % 10.0-14.5 Automated blood platelet count (count/volume) 106 10*3/uL 130-400 Automated blood platelet mean volume measurement 11.9 [foz_us] 7.4-10.4 Automated blood neutrophils/100 leukocytes 60 % 42-75 Automated blood lymphocytes/100 leukocytes 21 % 12-44 Blood monocytes/100 leukocytes 14 % 0-12 Automated blood eosinophils/100 leukocytes 4 % 0-10 Automated blood basophils/100 leukocytes 0 % 0-10 Blood neutrophils automated count (number/volume) 3.1 10*3 1.8-7.8 Blood lymphocytes automated count (number/volume) 1.1 10*3 1.0-4.0 Blood monocytes automated count (number/volume) 0.7 10*3 0.0-1.0 Automated eosinophil count 0.2 10*3/uL 0.0-0.3 Automated blood basophil count (count/volume) 0.0 10*3/uL 0.0-0.1 Comprehensive metabolic panel - 05/25/18 09:27 Serum or plasma sodium measurement (moles/volume) 140 mmol/L 135-145 Serum or plasma potassium measurement (moles/volume) 5.2 mmol/L 3.6-5.0 Serum or plasma chloride measurement (moles/volume) 108 mmol/L 98-107 Carbon dioxide 25 mmol/L 21-32 Serum or plasma anion gap determination (moles/volume) 7 mmol/L 5-14 Serum or plasma urea nitrogen measurement (mass/volume) 16 mg/dL 7-18 Serum or plasma creatinine measurement (mass/volume) 1.28 mg/dL 0.60-1.30 Serum or plasma urea nitrogen/creatinine mass ratio 13 NRG Serum or plasma creatinine measurement with calculation of estimated glomerular filtration rate 54 NRG Serum or plasma glucose measurement (mass/volume) 99 mg/dL 70-105 Serum or plasma calcium measurement (mass/volume) 9.4 mg/dL 8.5-10.1 Serum or plasma total bilirubin measurement (mass/volume) 0.9 mg/dL 0.1-1.0 Serum or plasma alkaline phosphatase measurement (enzymatic activity/volume) 77 U/L 40-136 Serum or plasma aspartate aminotransferase measurement (enzymatic activity/ volume) 27 U/L 5-34 Serum or plasma alanine aminotransferase measurement (enzymatic activity/volume ) 21 U/L 0-55 Serum or plasma protein measurement (mass/volume) 6.9 g/dL 6.4-8.2 Serum or plasma albumin measurement (mass/volume) 4.0 g/dL 3.2-4.5 CALCIUM CORRECTED 9.4 mg/dL 8.5-10.1 Magnesium - 05/25/18 09:27 Magnesium 2.2 mg/dL 1.8-2.4 Lipid 1996 panel - 05/25/18 09:27 Serum or plasma triglyceride measurement (mass/volume) 86 mg/dL <150 Serum or plasma cholesterol measurement (mass/volume) 93 mg/dL < 200 Serum or plasma cholesterol in HDL measurement (mass/volume) 26 mg/ dL 40-60 Cholesterol in LDL [mass/volume] in serum or plasma by direct assay 50 mg/dL 1-129 Serum or plasma cholesterol in VLDL measurement (mass/volume) 17 mg/ dL 5-40 Encounters ACCT No. Visit Date/Time Discharge Status Pt. Type Provider Facility Loc./Unit Complaint [id number] 06/08/2013 11:15:00 06/08/2013 23:59:59 [place] [id number] 07/16/2017 10:20:00 07/16/2017 23:59:59 CLS Outpatient ANISHA MILLER LAC [facility] 05/28/2015 12:12:59 ACT Document Registration [id number] 06/10/2018 09:26:00 06/14/2018 00:01:00 DIS Outpatient WILLIAMS CHAVEZ [facility] LAB Z79.01,I48.0 [id number] 06/10/2018 08:41:00 06/10/2018 23:59:59 CLS Outpatient AGNIESZKA PARDO MD, FACC, FACP CCDS [facility] CARD SOB,CHRONIC ATRIAL FIBRILLATION,HYPERTENSION [id number] 06/09/2018 10:12:00 06/09/2018 00:01:00 DIS Outpatient JAZIEL PRATER MD Via [place] [address] CARDIAC REHAB PHASE 3 [id number] 05/25/2018 07:24:00 05/25/2018 23:59:59 CLS Outpatient AGNIESZKA PARDO MD, FACC, FACP [facility] CARD SOB,CHRONIC ATRIAL FIBRILLATION,HYPERTENSION [id number] 05/05/2018 16:40:00 05/05/2018 00:01:00 DIS Outpatient JAZIEL PRATER MD Via [facility] CARDIAC REHAB PHASE 3 [id number] 03/29/2018 13:45:00 03/29/2018 23:59:59 CLS Outpatient JAZIEL PRATER MD R Via [place] [address] CARDIAC REHAB PHASE 3 [id number] 02/12/2018 11:07:00 03/14/2018 00:01:00 DIS Outpatient WILLIAMS CHAVEZ [facility] LAB Z79.01,I48.0 [id number] 03/01/2018 10:00:00 03/03/2018 00:01:00 DIS Outpatient MOI SHIRLEY, JAZIEL R [facility] [place] [address] CARDIAC REHAB PHASE 3 [id number] 01/29/2018 17:38:00 01/31/2018 00:01:00 DIS Outpatient MOI SHIRLEY, JAZIEL R [facility] [place] [address] CARDIAC REHAB PHASE 3 [id number] 12/28/2017 11:46:00 12/30/2017 00:01:00 DIS Outpatient JAZIEL PRATER MD R [facility] [place] [address] CARDIAC REHAB PHASE 3 [id number] 11/13/2017 12:34:00 12/13/2017 00:01:00 DIS Outpatient WILLIAMS CHAVEZ [facility] LAB [id number] 11/24/2017 14:15:00 11/24/2017 23:59:59 CLS Outpatient CHAR SHIRLEY FACC, ALI FACP CCDS [facility] LAB I10,N18.2 [id number] 11/13/2017 12:24:00 11/13/2017 23:59:59 CLS Outpatient CHAR SHIRLEY FACC, ALI FACP CCDS [facility] LAB I65.23, [id number] 09/17/2017 00:35:00 09/17/2017 23:59:59 CLS Preadmit SLOAN NICE MD [facility] ONC [id number] 07/15/2017 11:44:00 09/16/2017 00:01:00 DIS Outpatient SLOAN NICE MD [facility] ONC [id number] 08/14/2017 12:26:00 09/13/2017 00:01:00 DIS Outpatient WILLIAMS CHAVEZ [facility] LAB [id number] 05/18/2017 08:27:00 05/30/2017 00:01:00 DIS Outpatient DORISJEROME WILLIAMS Anuj AUSTIN [facility] LAB [id number] 05/18/2017 08:52:00 05/18/2017 23:59:59 CLS Outpatient CHAR SHIRLEY FACC, ALI FACP CCDS [facility] LAB I65.23,Z79.01, N18.2,E78.4,I10,I48.0,I49.5 [id number] 02/12/2017 10:43:00 03/10/2017 00:01:00 DIS Outpatient ROGELIO CORTES MD [facility] LAB [id number] 01/14/2017 00:11:00 01/14/2017 23:59:59 CLS Preadmit CHAR SHIRLEY FACC, ALI FACP CCDS [facility] LAB A-FIB,[place] [id number] 12/12/2016 13:35:00 01/13/2017 00:01:00 DIS Outpatient CHAR SHIRLEY FACC, ALI FACP CCDS [facility] LAB A-FIB, [place] [id number] 06/12/2016 08:55:00 09/10/2016 00:01:00 DIS Outpatient ROGELIO CORTES MD [facility] ONC [id number] 07/15/2016 09:37:00 08/05/2016 00:01:00 DIS Outpatient CHAR SHIRLEY FACC, ALI FACP CCDS [facility] LAB A-FIB, [place] [id number] 04/03/2016 11:09:00 04/29/2016 00:01:00 DIS Outpatient CHAR SHIRLEY FACJanay, ALI FACP CCDS [facility] LAB A-FIB, [place] [id number] 12/17/2015 12:11:00 01/28/2016 00:01:00 DIS Outpatient CHAR SHIRLEY FACC, ALI FACP CCDS [facility] LAB A-FIB, [place] [id number] 01/04/2016 09:32:00 01/04/2016 23:59:59 CLS Outpatient CHAR SHIRLEY FACC, ALI FACP CCDS [facility] CARD AFIB [id number] 01/04/2016 10:47:00 01/04/2016 13:20:00 DIS Emergency HUMA SHELDON MD [facility] ER LEFT LEG PAIN/ SWELLING [id number] 11/02/2015 14:34:00 11/02/2015 23:59:59 CLS Outpatient JAZIEL PRATER MD [facility] LAB UNSPECIFIED ARTRIAL FEBRILLATION [id number] 10/31/2015 13:43:00 11/01/2015 14:40:00 DIS Inpatient JAZIEL PRATER MD [facility] CSD ATYPICAL CHEST PAIN CHRONIC RENAL INSUFFICIENCY [id number] 10/01/2015 12:33:00 10/10/2015 00:01:00 DIS Outpatient CHAR SHIRLEY FACJanay, AGNIESZKA FACP CCDS [facility] LAB A-FIB, [place] [id number] 06/14/2015 10:21:00 09/12/2015 00:01:00 DIS Outpatient ROGELIO CORTES MD [facility] ONC [id number] 05/28/2015 12:12:00 05/30/2015 00:01:00 DIS Outpatient CHAR SHIRLEY FACJanay, ALI FACP CCDS [facility] LAB A-FIB, [place] [id number] 04/12/2015 11:37:00 05/06/2015 00:01:00 DIS Outpatient CHAR SHIRLEY FACC, ALI FACP CCDS [facility] LAB A-FIB, [place] [id number] 04/23/2015 11:31:00 04/23/2015 23:59:59 CLS Outpatient JAZIEL PRATER MD [facility] LAB BUN/CREAT [id number] 03/30/2015 10:59:00 03/30/2015 23:59:59 CLS Outpatient JAZIEL PRATER MD [facility] RAD PERSISTENT COUGH [id number] 03/05/2015 15:34:00 03/05/2015 23:59:59 CLS Outpatient JAZIEL PRATER MD [facility] LAB MALAISE [id number] 11/14/2014 13:17:00 02/12/2015 00:01:00 DIS Outpatient ROGELIO CORTES MD [facility] ONC [id number] 01/19/2015 14:04:00 02/01/2015 00:01:00 DIS Outpatient CHAR SHIRLEY FACC, ALI FACP CCDS [facility] LAB A-FIB, [place] [id number] 12/19/2014 08:49:00 12/19/2014 23:59:59 CLS Outpatient BAIWILLIAMS CANO [facility] LAB HYPERTENSION, A FIB, HYPERLIPIDEMIA, CORONARY BILLY [id number] 11/29/2014 10:35:00 11/29/2014 23:59:59 CLS Outpatient BAIWILLIAMS CANO [facility] CARD CAD,HTN,HLP [id number] 10/04/2014 15:05:00 10/04/2014 23:59:59 CLS Outpatient CHAR SHIRLEY FACJanay, ALI FACP CCDS [facility] LAB A-FIB, [place] [id number] 05/16/2014 12:55:00 08/14/2014 00:01:00 DIS Outpatient ROGELIO CORTES MD [facility] ONC [id number] 07/19/2014 10:57:00 07/19/2014 12:54:00 DIS Emergency CHARLEY SLAUGHTER MD [facility] ER WEAKNESS DIARRHEA [id number] 06/22/2014 10:06:00 07/03/2014 00:01:00 DIS Outpatient CHAR SHIRLEY FACJanay, ALI FACP CCDS [facility] LAB A-FIB, [place] [id number] 01/11/2014 12:35:00 04/11/2014 00:01:00 DIS Outpatient ROGELIO CORTES MD [facility] ONC [id number] 03/21/2014 09:18:00 03/22/2014 00:01:00 DIS Outpatient WILLIAMS CHAVEZ [employer]ALL[employer] ENGINEERING TECHNICIAN [facility] LAB A-FIB,[place] [id number] 10/12/2013 12:49:00 01/04/2014 15:17:00 DIS Outpatient ROGELIO CORTES MD [facility] ONC [id number] 11/14/2013 12:43:00 11/30/2013 00:01:00 DIS Outpatient BAIWILLIAMS CANO L [employer]ALL[employer] ENGINEERING TECHNICIAN [facility] LAB A-FIB,[place] [id number] 07/13/2013 12:54:00 10/11/2013 00:01:00 DIS Outpatient ROGELIO CORTES MD [facility] ONC [id number] 07/12/2013 15:19:00 08/24/2013 00:01:00 DIS Outpatient BAIWILLIAMS CANO L [employer]ALL[employer] ENGINEERING TECHNICIAN [facility] LAB A-FIB,[place] [id number] 07/14/2013 08:37:00 07/14/2013 23:59:59 CLS Outpatient BAIJEROME WILLIAMS L [employer]ALLUR[employer]ICAL ENGINEERING TECHNICIAN [facility] LAB HYPERLIPIDEMIA [id number] 07/05/2013 10:49:00 07/05/2013 18:00:00 DIS Outpatient CHAR SHIRLEY FACC, AGNIESZKA FRIEND CCDS [facility] CATH POSTITVE STRESS TEST,CAD,HLP,HTN [id number] 06/30/2013 07:31:00 06/30/2013 23:59:59 CLS Outpatient CHAR SHIRLEY FACC, AGNIESZKA FRIEND CCDS [facility] RAD CHEST DISCOMFORT,CAD,HX OF CABG [id number] 05/23/2013 14:50:00 06/24/2013 09:54:00 DIS Outpatient ROGELIO CORTES MD [facility] ONC [id number] 04/07/2013 14:55:00 05/10/2013 00:01:00 DIS Outpatient BAIWILLIAMS CANO L METALLUR[employer] ENGINEERING TECHNICIAN [facility] LAB A-FIB,[place] [id number] 04/11/2013 10:25:00 04/11/2013 23:59:59 CLS Outpatient BAIWILLIAMS CANO L METALLUR[employer]ICAL ENGINEERING TECHNICIAN [facility] LAB CHF [id number] 04/04/2013 11:21:00 04/04/2013 23:59:59 CLS Outpatient SCOTT WILLIAMS BEAVERP [facility] LAB CHF [id number] 03/29/2013 11:32:00 03/29/2013 23:59:59 CLS Outpatient WILLIAMS CHAVEZP [facility] LAB DIURETIC TR ELEVATED BNP [id number] 03/23/2013 07:37:00 03/23/2013 23:59:59 CLS Outpatient WILLIAMS CHAVEZP [facility] RAD ELEVATED LIVER ENZYMES [id number] 03/17/2013 08:27:00 03/17/2013 23:59:59 CLS Outpatient CHAR SHIRLEY FACC, AGNIESZKA FRIEND CCDS [facility] LAB LEG SWELLING,A -FIB, [id number] 06/15/2018 00:08:00 PEN Preadmit WILLIAMS CHAVEZP [facility] LAB Z79.01,I48.0 [id number] 06/14/2018 10:16:00 ACT Outpatient MOI SHIRLEY, JAZIEL Curtis [facility] CR3 CARDIAC REHAB PHASE 3 [id number] 10/30/2015 10:34:00 Document Registration [id number] 10/30/2015 10:34:00 Document Registration [id number] 05/16/2014 08:56:00 Document Registration [id number] 01/26/2013 11:35:00 Document Registration [id number] 11/17/2012 19:55:00 Document Registration [id number] 10/18/2012 12:30:00 Document Registration [id number] 07/29/2012 09:27:00 Document Registration [id number] 06/14/2012 11:49:00 Document Registration [id number] 06/14/2012 08:47:00 Document Registration [id number] 05/05/2012 14:07:00 Document Registration [id number] 04/26/2012 11:56:00 Document Registration [id number] 04/21/2012 09:46:00 Document Registration [id number] 03/29/2012 09:20:00 Document Registration [id number] 03/22/2012 16:00:00 Document Registration [id number] 03/19/2012 13:28:00 Document Registration [id number] 02/27/2012 11:47:00 Document Registration [id number] 12/28/2011 14:14:00 Document Registration [id number] 12/01/2011 06:53:00 Document Registration [id number] 11/07/2011 12:08:00 Document Registration [id number] 11/06/2011 10:30:00 Document Registration [id number] 10/31/2011 11:23:00 Document Registration [id number] 10/29/2011 16:17:00 Document Registration [id number] 10/20/2011 06:44:00 Document Registration [id number] 10/13/2011 10:46:00 Document Registration [id number] 09/09/2011 05:05:00 Document Registration [id number] 08/15/2011 11:11:00 Document Registration [id number] 06/20/2011 08:07:00 Document Registration [id number] 06/26/2017 09:18:21 06/26/2017 09:18:21 DIS Outpatient
--- NOTE | 2018-06-15 19:32 | ED Fall/Injury ---
General Chief Complaint: Trauma-Non Activation Stated Complaint: FELL AT HOME, LEFT HAND,RT KNEE Source: patient Exam Limitations: no limitations History of Present Illness Date Seen by Provider: Jun 15, 2018 Time Seen by Provider: 19:13 Initial Comments Here with report of fall at home this morning at 830 a.m. Tripped going down steps to his garage and landed on the floor. Reports landing to his right knee and left hand and his forehead did hit the ground. Patient is on warfarin equivalent. Tetanus is unknown. Does have bruising and abrasion to the right knee but is able to walk without difficulty and denies any other bony pain to the knee. Does complain of pain at the left wrist especially with pronation/ supination. Mild swelling noted distal aspect of the forearm. No significant injury noted to the head. Occurred: this morning Severity: mild, moderate Injuries/Pain Location: face, upper extremity, lower extremity Context: tripped Loss of Consciousness: no loss of consciousness Associated Symptoms (Fall): No Abdominal Pain, No Chest Pain, No Confusion, No Headache, No Muscle Spasms, No Neck Pain, No Slurred Speech, No Trouble Walking , No Vision Changes Allergies and Home Medications Allergies Coded Allergies: No Known Drug Allergies (Unverified , 11/18/12) Home Medications Aspirin 81 Mg Tablet.dr, 81 MG PO DAILY, (Reported) Atorvastatin Calcium 40 Mg Tablet, 40 MG PO DAILY, (Reported) Calcium Carbonate/Vitamin D3 1 Each Tablet, 1 TAB PO DAILY, (Reported) Furosemide 40 Mg Tablet, 40 MG PO TUES,THURS, SAT, (Reported) Hydrocodone Bit/Acetaminophen 1 Each Tablet, 1-2 EACH PO Q6H PRN for PAIN Prescribed by: HUMA SHELDON on 01/04/16 1259 Metoprolol Tartrate 100 Mg Tablet, 100 MG PO BID, (Reported) Multivitamins W-Minerals/Lut 1 Each Tablet, 1 TAB PO DAILY, (Reported) Sterling 3 Polyunsat Fatty Acids 1,000 Mg Cap, 1,000 MG PO DAILY, (Reported) Pantoprazole Sodium 40 Mg Tablet.dr, 40 MG PO DAILY, (Reported) Potassium Chloride 10 Meq Capsule.er, 10 MEQ PO TUES, THURS, SAT, (Reported) Spironolactone 25 Mg Tablet, 25 MG PO BID, (Reported) Warfarin Sodium 2.5 Mg Tablet, 1.25 MG PO MON, FRI, (Reported) TAKES 1/2 (2.5MG) TABLET Warfarin Sodium 2.5 Mg Tablet, 2.5 MG PO ,,,SAT,SUN, (Reported) Patient Home Medication List Home Medication List Reviewed: Yes Review of Systems Review of Systems Constitutional: see HPI; No chills, No fever Eyes: No Symptoms Reported Ears, Nose, Mouth, Throat: no symptoms reported Respiratory: no symptoms reported Cardiovascular: no symptoms reported; No chest pain, No palpitations Gastrointestinal: No abdominal pain, No nausea, No vomiting Musculoskeletal: joint pain, joint swelling; No muscle weakness Skin: change in color, lesions Psychiatric/Neurological: No Symptoms Reported Past Mbuxblf-Zhennu-Muajyf Hx Past Med/Social Hx: Reviewed Nursing Past Med/Soc Hx Patient Social History Alcohol Use: Denies Use Recreational Drug Use: No Smoking Status: Former Smoker Recent Foreign Travel: No Contact w/Someone Who Travel: No Immunizations Up To Date Tetanus Booster (TDap): More than 5yrs PED Vaccines UTD: No Date of Pneumonia Vaccine: Jul 05, 2011 Date of Influenza Vaccine: May 31, 2015 Seasonal Allergies Seasonal Allergies: No Past Medical History Surgeries: Yes CABG Respiratory: Yes Pneumonia Currently Using CPAP: No Currently Using BIPAP: No Cardiac: Yes Heart Attack Reproductive Disorders: No Sexually Transmitted Disease: No HIV/AIDS: No Genitourinary: Yes Kidney Stones, Renal Failure Gastrointestinal: No Musculoskeletal: Yes Arthritis Endocrine: No HEENT: Yes Cataract Hearing Impairment: Denies Psychosocial: Yes Sleep Difficulties, Anxiety Family Medical History Reviewed Nursing Family Hx Osteoporosis Pneumococcal pneumonia G8 BROTHER, Physical Exam Vital Signs Vital Signs - First Documented 06/15/18 19:15 Temp 98.2 Pulse 58 Resp 22 B/P (MAP) 139/60 (86) Pulse Ox 98 O2 Delivery Room Air Capillary Refill : Height, Weight, BMI Height: 5'8.00" Weight: 199lbs. 0.0oz. 90.313182at; 30.3 BMI Method:Stated General Appearance: WD/WN, no apparent distress HEENT: PERRL/EOMI, TMs normal, pharynx normal Neck: full range of motion, supple Cardiovascular: regular rate, rhythm, no murmur, other (intermittent paced rhythm with PACs on monitor) Respiratory: lungs clear, normal breath sounds Gastrointestinal: non tender, soft Back: normal inspection, no CVA tenderness, no vertebral tenderness Extremities: swelling (left wrist with pain with range of motion on supination/ pronation to the wrist area right knee overall nontender through full range of motion. There is bruising, swelling and small abrasion to the anterior right knee) Neurologic/Psychiatric: alert, oriented x 3 Skin: warm/dry, ecchymosis, other (lesion as described above) Agusto Coma Score Best Eye Response: (4) Open Spontaneously Best Verbal Response: (5) Oriented Best Motor Response: (6) Obeys Commands Progress/Results/Core Measures Results/Orders Lab Results Laboratory Tests Test 06/15/18 19:33 Range/Units Prothrombin Time 23.1 H 12.2-14.7 SEC INR Comment 2.0 H 0.8-1.4 Activated Partial Thromboplast Time 40 H 24-35 SEC My Orders Orders - HUMA SHELDON MD Ct Head Wo (06/15/18 19:24) Wrist, Left, 3 Views Or More (06/15/18 19:24) Protime With Inr (06/15/18 19:24) Partial Thromboplastin Time (06/15/18 19:24) Dipht,Pertuss(Acell),Tet Adult (Boostrix (06/15/18 19:24) Vital Signs/I&O 06/15/18 19:15 Temp 98.2 Pulse 58 Resp 22 B/P (MAP) 139/60 (86) Pulse Ox 98 O2 Delivery Room Air Progress Progress Note : Progress Note Seen and evaluated. CT head due to warfarin use and head injury. X-ray left wrist. We will update tetanus. No indication for x-ray of the right knee at this time and patient agrees. We will check coags. 2039: No acute findings. Velcro wrist splint to left wrist. Discharged home with return precautions. Patient verbalize understanding instructions and agreement with plan. Diagnostic Imaging Diagonstic Imaging: CT Plain Films/CT/US/NM/MRI: head Comments NAME: NELIA CORONEL [facility] REC#: [id number] PT STATUS: REG ER : 1935 PHYSICIAN: HUMA SHELDON MD ADMIT DATE: 06/15/18/ER Signed Date of Exam: 06/15/18 CT HEAD WO PROCEDURE: CT head without contrast. TECHNIQUE: Multiple contiguous axial images were obtained through the brain without the use of intravenous contrast. INDICATION: Fall. On blood thinners. The ventricles are normal in size, shape and position. There is atrophy present. There is no acute parenchymal hemorrhage, edema or mass. There is no extra-axial mass or hemorrhage. IMPRESSION: There is atrophy present. No acute abnormality is seen. Dictated by: Dictated on workstation # [id number] Dict: 06/15/181958 Trans: 06/15/182003 Interpreted by: JOHN CROSS MD Electronically signed by: JOHN CROSS MD 06/15/182003 Diagonstic Imaging: Xray Plain Films/CT/US/NM/MRI: other Comments [facility] [place], [place] NAME: NELIA CORONEL [facility] REC#: [id number] PT STATUS: REG ER : 1935 PHYSICIAN: HUMA SHELDON MD ADMIT DATE: 06/15/18/ER Draft Date of Exam:06/15/18 WRIST, LEFT, 3 VIEWS OR MORE INDICATION: Fall, left wrist pain 3 views of the left wrist show no fracture, dislocation or other acute bony abnormality. There are degenerative changes present most pronounced at the carpometacarpal joint of the thumb. IMPRESSION: No acute abnormality is seen. Dictated on workstation # [id number] Dict: 06/15/182016 Trans: 06/15/18 2019 EDILSON [id number] Interpreted by: JOHN CROSS MD Electronically signed by: Departure Impression Primary Impression: Left wrist sprain Qualified Codes: S63.502A - Unspecified sprain of left wrist, initial encounter Additional Impression: Contusion of right knee Qualified Codes: S80.01XA - Contusion of right knee, initial encounter Disposition: 01 HOME, SELF-CARE Condition: Improved Departure-Patient Inst. Decision time for Depature: 20:42 Referrals: JAZIEL PRATER MD (PCP/Family) Primary Care Physician Patient Instructions: Contusion (DC), Diphtheria and Tetanus Toxoids, and Acellular Pertussis Vaccine, Minor Head Injury (DC), Wrist Sprain (DC) Add. Discharge Instructions: All discharge instructions reviewed with patient and/or family. Voiced understanding. Continue home meds as previously prescribed. He may take Tylenol/acetaminophen 1000 mg every 8 hours as needed for pain. Follow-up with your Dr. in a few days for recheck. Use wrist splint as needed for comfort. You may use ice packs over area of concern 20 minutes per hour as needed to reduce swelling and pain. Return for worse pain, fever, swelling or other concerns as needed. HUMA SHELDON MD Jun 15, 2018 19:32
[2018-06-15 19:54] LABS: PROTHROMBIN TIME PATIENT 23.1 SEC (12.2-14.7)
--- NOTE | 2018-06-15 20:03 | Diagnostic Imaging Report ---
PROCEDURE: CT head without contrast. TECHNIQUE: Multiple contiguous axial images were obtained through the brain without the use of intravenous contrast. INDICATION: Fall. On blood thinners. The ventricles are normal in size, shape and position. There is atrophy present. There is no acute parenchymal hemorrhage, edema or mass. There is no extra-axial mass or hemorrhage. IMPRESSION: There is atrophy present. No acute abnormality is seen. Dictated by: Dictated on workstation # [id number]
--- NOTE | 2018-06-15 20:19 | Diagnostic Imaging Report ---
INDICATION: Fall, left wrist pain 3 views of the left wrist show no fracture, dislocation or other acute bony abnormality. There are degenerative changes present most pronounced at the carpometacarpal joint of the thumb. IMPRESSION: No acute abnormality is seen. Dictated by: Dictated on workstation # [id number]
[2018-06-15 21:15] VITALS: BP 131/58
== END | disposition home or self-care (01) ==
LOC: EDUNIT# 18:26 → ER 18:28
DX: S63.502A Unspecified sprain of left wrist, initial encounter (principal); S80.01XA Contusion of right knee, initial encounter; I25.2 Old myocardial infarction; F41.9 Anxiety disorder, unspecified; R40.2142 Coma scale, eyes open, spontaneous, at arrival to emergency department; R40.2252 Coma scale, best verbal response, oriented, at arrival to emergency department; R40.2362 Coma scale, best motor response, obeys commands, at arrival to emergency department; Z23 Encounter for immunization; Z87.442 Personal history of urinary calculi; Z79.82 Long term (current) use of aspirin; Z95.1 Presence of aortocoronary bypass graft; Z79.01 Long term (current) use of anticoagulants; Z87.891 Personal history of nicotine dependence; W10.8XXA Fall (on) (from) other stairs and steps, initial encounter; Y92.009 Unspecified place in unspecified non-institutional (private) residence as the place of occurrence of the external cause
CPT/HCPCS: 36415; 70450; 73110; 85610; 85730; 90471; 90715

== ENCOUNTER 2018-06-28 10:09 | Outpatient (RCR) | payer MEDICARE, OTHER ==
[~2018-06-28 10:09] MED LIST changes: -TETANUS,DIPTH,PERTUSS P/F (BOOSTRIX) 0.5 ML VIAL IM STA
== END 2018-07-11 | disposition home or self-care (01) ==
LOC: CR3 10:09
PROVIDERS: ATTEND Family Medicine
DX: Z29.8 Encounter for other specified prophylactic measures (principal)

== ENCOUNTER 2018-07-07 16:13 | Outpatient (RCR) | payer MEDICARE, OTHER ==
[2018-07-07 16:40] LABS: BASOPHILS % (AUTO) 0 % (0-10); EOSINOPHILS # (AUTO) 0.2 10^3/uL (0.0-0.3); EOSINOPHILS % (AUTO) 3 % (0-10); HEMATOCRIT 40 % (40-54); HEMOGLOBIN 13.4 G/DL (13.3-17.7); LYMPHOCYTES # (AUTO) 1.3 X 10^3 (1.0-4.0); LYMPHOCYTES % (AUTO) 24 % (12-44); MEAN CORPUSCULAR HEMOGLOBIN 32 PG (25-34); MEAN CORPUSCULAR HGB CONC 33 G/DL (32-36); MEAN CORPUSCULAR VOLUME 97 FL (80-99); MEAN PLATELET VOLUME 11.9 FL (7.4-10.4); MONOCYTES # (AUTO) 1.2 X 10^3 (0.0-1.0); MONOCYTES % (AUTO) 21 % (0-12); NEUTROPHILS % (AUTO) 53 % (42-75); PLATELET COUNT 126 10^3/uL (130-400); RED CELL DISTRIBUTION WIDTH 13.6 % (10.0-14.5); WHITE BLOOD COUNT 5.7 10^3/uL (4.3-11.0)
--- NOTE | 2018-07-07 16:45 | Diagnostic Imaging Report ---
INDICATION: Fever and cough. PA and lateral chest obtained at 04:47 p.m. and compared to 10/31/2015. The patient has had previous sternotomy. The heart is borderline in size. Pacemaker is unchanged. There is no focal infiltrate, pneumothorax, or pleural fluid. IMPRESSION: No acute process in the chest. Postoperative findings as above. Dictated by: Dictated on workstation # [id number]
[2018-07-07 16:58] LABS: BAND NEUTROPHILS 4 %; BASOPHILS % (MANUAL) 1 %; EOSINOPHILS % (MANUAL) 5 %; LYMPHOCYTES % (MANUAL) 34 %; MONOCYTES % (MANUAL) 14 %; NEUTROPHILS % (MANUAL) 42 %; RBC MORPH NORMAL
== END 2018-10-05 | disposition home or self-care (01) ==
LOC: LAB 16:13
PROVIDERS: ATTEND Nurse Practitioner Family
DX: R50.9 Fever, unspecified (principal)
CPT/HCPCS: 36415; 71046; 85007; 85027

== ENCOUNTER 2018-07-09 13:01 | Outpatient (RCR) | payer MEDICARE, OTHER ==
[2018-07-09 13:33] LABS: BASOPHILS % (AUTO) 1 % (0-10); EOSINOPHILS # (AUTO) 0.2 10^3/uL (0.0-0.3); EOSINOPHILS % (AUTO) 4 % (0-10); HEMATOCRIT 42 % (40-54); HEMOGLOBIN 13.7 G/DL (13.3-17.7); LYMPHOCYTES # (AUTO) 1.3 X 10^3 (1.0-4.0); LYMPHOCYTES % (AUTO) 20 % (12-44); MEAN CORPUSCULAR HEMOGLOBIN 32 PG (25-34); MEAN CORPUSCULAR HGB CONC 33 G/DL (32-36); MEAN CORPUSCULAR VOLUME 97 FL (80-99); MEAN PLATELET VOLUME 12.5 FL (7.4-10.4); MONOCYTES # (AUTO) 0.9 X 10^3 (0.0-1.0); MONOCYTES % (AUTO) 13 % (0-12); NEUTROPHILS # (AUTO) 4.2 X 10^3 (1.8-7.8); NEUTROPHILS % (AUTO) 63 % (42-75); PLATELET COUNT 119 10^3/uL (130-400); RED CELL DISTRIBUTION WIDTH 13.4 % (10.0-14.5); WHITE BLOOD COUNT 6.6 10^3/uL (4.3-11.0)
== END 2018-10-07 | disposition home or self-care (01) ==
LOC: ONC 13:01
PROVIDERS: ATTEND Internal Medicine Hematology & Oncology
DX: D69.6 Thrombocytopenia, unspecified (principal); D50.9 Iron deficiency anemia, unspecified; I12.9 Hypertensive chronic kidney disease with stage 1 through stage 4 chronic kidney disease, or unspecified chronic kidney disease; N18.9 Chronic kidney disease, unspecified; I25.10 Atherosclerotic heart disease of native coronary artery without angina pectoris; E78.5 Hyperlipidemia, unspecified; I48.91 Unspecified atrial fibrillation; Z79.01 Long term (current) use of anticoagulants; Z79.899 Other long term (current) drug therapy
CPT/HCPCS: 85025; 99213

== ENCOUNTER 2018-08-06 11:44 | Outpatient (RCR) | payer MEDICARE, OTHER | END 2018-08-11 | disposition home or self-care (01) | LOC: CR3 11:44 | PROVIDERS: ATTEND Family Medicine | DX: Z29.8 Encounter for other specified prophylactic measures (principal) ==

== ENCOUNTER 2018-09-10 10:46 | Outpatient (RCR) | payer MEDICARE, OTHER | END 2018-09-12 | disposition home or self-care (01) | LOC: CR3 10:46 | PROVIDERS: ATTEND Family Medicine | DX: Z29.8 Encounter for other specified prophylactic measures (principal) ==

== ENCOUNTER → 2018-09-27 | Outpatient (CLI) | payer MEDICARE, OTHER ==
[2018-09-27 12:44] LABS: ALBUMIN 4.1 GM/DL (3.2-4.5); BILIRUBIN,TOTAL 1.1 MG/DL (0.1-1.0); CALCIUM 9.3 MG/DL (8.5-10.1); CREATININE SERUM 1.41 MG/DL (0.60-1.30); MAGNESIUM 2.1 MG/DL (1.8-2.4); POTASSIUM 4.8 MMOL/L (3.6-5.0)
== END ==
LOC: LAB 11:17
PROVIDERS: ATTEND Nurse Practitioner Family
DX: I12.9 Hypertensive chronic kidney disease with stage 1 through stage 4 chronic kidney disease, or unspecified chronic kidney disease (principal); N18.9 Chronic kidney disease, unspecified
CPT/HCPCS: 36415; 80053; 83735

== ENCOUNTER 2018-09-29 19:39 | Outpatient (CLI) | payer MEDICARE, OTHER | END 2018-09-30 06:40 | disposition home or self-care (01) | LOC: SLEEP 19:39 | PROVIDERS: ATTEND Nurse Practitioner | DX: G47.33 Obstructive sleep apnea (adult) (pediatric) (principal) | CPT/HCPCS: 95811 ==

== ENCOUNTER → 2018-10-13 | Outpatient (RCR) | payer MEDICARE, OTHER | END | disposition home or self-care (01) | LOC: CR3 09-13 10:00 | PROVIDERS: ATTEND Family Medicine | DX: Z29.8 Encounter for other specified prophylactic measures (principal) ==

== ENCOUNTER → 2018-11-17 | Outpatient (RCR) | payer MEDICARE, OTHER | END | disposition home or self-care (01) | LOC: CR3 10-18 10:00 | PROVIDERS: ATTEND Family Medicine | DX: Z29.8 Encounter for other specified prophylactic measures (principal) ==

== ENCOUNTER 2018-11-22 09:33 | Outpatient (RCR) | payer MEDICARE, OTHER ==
[2018-09-17 12:13] LABS: PROTHROMBIN TIME PATIENT 22.6 SEC (12.2-14.7)
[2018-10-22 12:10] LABS: INR 1.5 (0.8-1.4); PROTHROMBIN TIME PATIENT 17.8 SEC (12.2-14.7)
[2018-11-22 10:10] LABS: PROTHROMBIN TIME PATIENT 23.5 SEC (12.2-14.7)
== END 2018-12-16 | disposition home or self-care (01) ==
LOC: LAB 09:33
PROVIDERS: ATTEND Nurse Practitioner Family
DX: Z51.81 Encounter for therapeutic drug level monitoring (principal); I48.91 Unspecified atrial fibrillation; Z79.01 Long term (current) use of anticoagulants
CPT/HCPCS: 36415; 85610

== ENCOUNTER 2018-12-13 11:30 | Outpatient (RCR) | payer MEDICARE, OTHER | END 2018-12-19 | disposition home or self-care (01) | LOC: CR3 11:30 | PROVIDERS: ATTEND Family Medicine | DX: Z29.8 Encounter for other specified prophylactic measures (principal) ==

== ENCOUNTER 2019-01-03 09:40 | Outpatient (RCR) | payer MEDICARE, OTHER ==
[2018-12-20 10:05] LABS: INR 1.2 (0.8-1.4); PROTHROMBIN TIME PATIENT 15.3 SEC (12.2-14.7)
[2019-01-03 10:20] LABS: INR 1.3 (0.8-1.4); PROTHROMBIN TIME PATIENT 17.1 SEC (12.2-14.7)
[2019-01-10] MEDS ORDERED: DONE10TA41 (22:30)
[2019-01-10] MEDS ORDERED: CARB1TAB19 (22:30)
[2019-01-10] MEDS ORDERED: MEMA10TA22 (22:30)
[2019-02-11] MEDS ORDERED: CALC-210 PO (08:54)
[2019-02-11] MEDS ORDERED: MULT-1029 PO (08:54)
[2019-02-11] MEDS ORDERED: SERT50TA9 PO (08:54)
[2019-02-11] MEDS ORDERED: RISP0.5T3 PO (08:54)
== END 2019-03-20 | disposition still patient (30) ==
LOC: LAB 09:40
PROVIDERS: ATTEND Nurse Practitioner Family
DX: Z51.81 Encounter for therapeutic drug level monitoring (principal); Z79.01 Long term (current) use of anticoagulants
CPT/HCPCS: 36415; 85610

== ENCOUNTER 2019-01-10 09:57 | Outpatient (RCR) | payer MEDICARE, OTHER ==
[2019-01-10] MEDS ORDERED: DONE10TA41 (22:30)
[2019-01-10] MEDS ORDERED: CARB1TAB19 (22:30)
[2019-01-10] MEDS ORDERED: MEMA10TA22 (22:30)
== END 2019-01-19 | disposition home or self-care (01) ==
LOC: CR3 09:57
PROVIDERS: ATTEND Family Medicine
DX: Z29.8 Encounter for other specified prophylactic measures (principal)

== ENCOUNTER 2019-01-10 18:37 | Emergency (ER) | payer MEDICARE, OTHER ==
[~2019-01-10] VITALS: Ht 172.7 cm; Wt 92.1 kg
--- OUTSIDE RECORDS SUMMARY | 2019-01-10 18:48 | XMS REPORT | Continuity of Care Document ---
Author Organization Unknown Address Unknown Allergies Active Description Code Type Severity Reaction Onset Reported/Identified Relationship to Patient Clinical Status Yes No Known Drug Allergies [id number] Drug Allergy Unknown N/A 11/18/2012 Medications There [...] FIBRILLATION 02/03/2013 Ot V58.61 ANTICOAGULANTS,LT,CURRENT USE 05/10/2013 WILLIAMS CHAVEZ BULK LOADER Ot 427.31 ATRIAL FIBRILLATION 05/10/2013 WILLIAMS CHAVEZ BULK LOADER Ot V58.61 ANTICOAGULANTS,LT,CURRENT USE 06/08/2013 SEB BUSTILLO DO V04.81 FLU SHOT 06/24/2013 ROGELIO CORTES MD [...] FACP CCDS Ot 272.4 HYPERLIPIDEMIA NEC/NOS 07/05/2013 CHAR SHIRLEY FACC, AGNIESZKA FACP CCDS Ot 401.9 HYPERTENSION NOS 07/05/2013 CHAR SHIRLEY FACC, AGNIESZKA FACP CCDS Ot 414.01 CORONARY ATHEROSCLEROSIS OF [place] CORON 07/05/2013 CHAR SHIRLEY FACC, AGNIESZKA FACP CCDS Ot 414.2 CHRONIC TOTAL OCCLUSION OF CORONARY [place] 07/05/2013 CHAR SHIRLEY FACC, AGNIESZKA FACP CCDS Ot 427.31 ATRIAL FIBRILLATION 07/05/2013 CHAR SHIRLEY FACC, AGNIESZKA FACP CCDS Ot 427.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 07/05/2013 CHAR SHIRLEY FACC, AGNIESZKA FACP CCDS Ot 786.59 CHEST PAIN NEC 07/05/2013 CHAR SHIRLEY FACC, AGNIESZKA FACP CCDS Ot 794.30 ABN CARDIOVASC STUDY NOS 07/05/2013 AGNIESZKA PARDO MD, FACC FACP CCDS Ot V15.82 HISTORY OF TOBACCO USE 07/05/2013 AGNIESZKA PARDO MD, FACC FACP CCDS Ot V45.01 CARDIAC PACEMAKER IN SITU 07/05/2013 AGNIESZKA PARDO MD, FACC FACP CCDS Ot 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 07/05/2013 CHAR SHIRLEY FACC ALI FACP CCDS Ot V58.61 ANTICOAGULANTS,LT,CURRENT USE 07/05/2013 CHAR SHIRLEY FACC, AGNIESZKA FACP CCDS Ot V58.69 OTH MED,LT,CURRENT USE 08/24/2013 BAIMA WILLIAMS L BULK LOADER Ot 427.31 ATRIAL FIBRILLATION 08/24/2013 BAIMA WILLIAMS L BULK LOADER Ot V58.61 ANTICOAGULANTS,LT,CURRENT USE 10/11/2013 ROGELIO CORTES [...] V58.69 OTH MED,LT,CURRENT USE 11/30/2013 WILLIAMS CHAVEZ BULK LOADER Ot 427.31 ATRIAL FIBRILLATION 11/30/2013 WILLIAMS CHAVEZ BULK LOADER Ot V58.61 ANTICOAGULANTS,LT,CURRENT USE 01/04/2014 ROGELIO CORTES [...] V58.69 OTH MED,LT,CURRENT USE 03/22/2014 WILLIAMS CHAVEZ BULK LOADER Ot 427.31 ATRIAL FIBRILLATION 03/22/2014 WILLIAMS CHAVEZ BULK LOADER Ot V58.61 ANTICOAGULANTS,LT,CURRENT USE 04/11/2014 ROGELIO CORTES [...] MD Ot V58.69 OTH MED,LT,CURRENT USE 07/03/2014 CHAR SHIRLEY FACC, AGNIESZKA BURGERP CCDS Ot 427.31 ATRIAL FIBRILLATION 07/03/2014 CHAR SHIRLEY FACC, AGNIESZKA FACP CCDS Ot V58.61 ANTICOAGULANTS,LT,CURRENT USE 07/19/2014 CHARLEY SLAUGHTER MD T Ot 593.9 RENAL URETERAL DIS NOS 07/19/2014 CHARLEY SLAUGHTER MD T Ot 787.91 DIARRHEA 07/19/2014 CHARLEY SLAUGHTER MD T Ot V58.61 ANTICOAGULANTS,LT,CURRENT USE 07/24/2014 CHAR SHIRLEY FACC, AGNIESZKA FACP CCDS Ot 427.31 07/24/2014 CHAR SHIRLEY FACC, AGNIESZKA FACP CCDS Ot V58.61 07/25/2014 CHAR SHIRLEY FACC, ALI FACP CCDS Ot 427.31 07/25/2014 CHAR SHIRLEY FACC, ALI FACP CCDS Ot V58.61 07/26/2014 CHAR SHIRLEY FACC, ALI FACP CCDS Ot 427.31 07/26/2014 CHAR SHIRLEY FACC, AGNIESZKA FACP CCDS Ot V58.61 07/26/2014 CHAR SHIRLEY FACJanay, ALI FACP CCDS Ot 427.31 07/26/2014 CHAR SHIRLEY FACC, ALI FACP CCDS Ot V58.61 08/14/2014 ROGELIO CORTES [...] CCDS Ot 427.31 08/30/2014 CHAR SHIRLEY FACC, ALI FACP CCDS Ot V58.61 10/22/2014 CHAR SHIRLEY FACC, ALI FACP CCDS Ot 427.31 ATRIAL FIBRILLATION 10/22/2014 CHAR SHIRLEY FACC, ALI FACP CCDS Ot V58.61 ANTICOAGULANTS,LT,CURRENT USE 12/27/2014 CHAR SHIRLEY FACC, ALI FACP CCDS Ot 427.31 12/27/2014 CHAR SHIRLEY FACC, ALI FACP CCDS Ot V58.61 01/02/2015 BAIMA, WILLIAMS L BULK LOADER Ot 272.4 01/02/2015 BAIMA, WILLIAMS L BULK LOADER Ot 401.9 01/02/2015 BAIMA, WILLIAMS L BULK LOADER Ot 414.00 01/02/2015 BAIMA, WILLIAMS L BULK LOADER Ot 427.31 01/19/2015 BAIMA, WILLIAMS L BULK LOADER Ot 272.4 01/19/2015 BAIMA, WILLIAMS L BULK LOADER Ot 401.9 01/19/2015 BAIMA, WILLIAMS L BULK LOADER Ot 414.9 01/19/2015 SCOTT WILLIAMS L BULK LOADER Ot 427.31 02/01/2015 CHAR SHIRLEY FACC, AGNIESZKA BURGERP CCDS Ot 427.31 ATRIAL FIBRILLATION 02/01/2015 CHAR SHIRLEY FACC, AGNIESZKA BURGERP CCDS Ot V58.61 ANTICOAGULANTS,LT,CURRENT USE 02/06/2015 CHAR SHIRLEY FACC, AGNIEZSKA BURGERP CCDS Ot 427.31 02/06/2015 CHAR SHIRLEY FACC, AGNIESZKA FACP CCDS Ot V58.61 02/12/2015 ROGELIO CORTES MD Ot 272.0 PURE HYPERCHOLESTEROLEM 02/12/2015 ROGELIO CORTES MD Ot 280.9 IRON DEFIC ANEMIA NOS 02/12/2015 ROGELIO CORTES MD Ot 287.5 THROMBOCYTOPENIA NOS 02/12/2015 ROGELIO CORTES MD Ot 403.90 HYPTNSV CHR [...] FACC, AGNIESZKA BURGERP CCDS Ot 427.31 03/22/2015 AGNIESZKA PARDO MD, FACCP CCDS Ot V58.61 03/28/2015 MOI SHIRLEY JAZIEL R Ot 780.79 04/20/2015 MOI SHIRLEY JAZIEL R Ot 429.3 04/20/2015 MOI SHIRLEY JAZIEL R Ot 786.2 05/06/2015 CHAR SHIRLEY FACC, AGNIESZKA BURGERP CCDS Ot 427.31 ATRIAL FIBRILLATION 05/06/2015 CHAR SHIRLEY FACC, AGNIESZKA BURGERP CCDS Ot V58.61 ANTICOAGULANTS,LT,CURRENT USE 05/15/2015 JAZIEL PRATER MD R Ot 794.4 05/23/2015 ROGELIO CORTES MD Ot 272.0 05/23/2015 ROGELIO CORTES MD Ot 280.9 05/23/2015 SEBASTIAN SHIRLEY, ROGELIO Alberts Ot 287.5 05/23/2015 SEBASTIAN SHIRLEY, ROGELIO Aristeo Ot 403.90 05/23/2015 SEBASTIAN SHIRLEY, ROGELIO Alberts Ot 414.00 05/23/2015 SEBASTIAN SHIRLEY, ROGELIO Alberts Ot 427.31 05/23/2015 SEBASTIAN SHIRLEY, ROGELIO Alberts Ot 585.9 05/23/2015 SEBASTIAN SHIRLEY, ROGELIO Alberts Ot V45.81 05/23/2015 SEBASTIAN SHIRLEY, ROGELIO Alberts Ot V58.61 05/23/2015 SEBASTIAN SHIRLEY, ROGELIO Alberts Ot V58.69 05/28/2015 CHAR SHIRLEY FACC, ALI FACP CCDS Ot 427.31 05/28/2015 CHAR SHIRLEY FACC, ALI FACP CCDS Ot V58.61 05/28/2015 MOI SHIRLEY, JAZIEL R Ot 429.3 05/28/2015 MOI SIHRLEY, JAZIEL R Ot 786.2 05/29/2015 CHAR SHIRLEY FACC, ALI FACP CCDS Ot 427.31 05/29/2015 CHAR SHIRLEY FACC, ALI FACP CCDS Ot V58.61 05/30/2015 CHAR SHIRLEY FACC, ALI FACP CCDS Ot 427.31 ATRIAL FIBRILLATION 05/30/2015 CHAR SHIRLEY FACC, ALI FACP CCDS Ot V58.61 ANTICOAGULANTS,LT,CURRENT USE 06/13/2015 SEBASTIAN SHIRLEY, ROGELIO Alberts Ot 272.0 06/13/2015 SEBASTIAN SHIRLEY, ROGELIO Alberts Ot 280.9 06/13/2015 SEBASTIAN SHIRLEY, ROGELIO Alberts Ot 287.5 06/13/2015 SEBASTIAN SHIRLEY, ROGELIO Aristeo Ot 403.90 06/13/2015 SEBASTIAN SHIRLEY, ROGELIO Aristeo Ot 414.00 06/13/2015 SBEASTIAN SHIRLEY, ROGELIO Aristeo Ot 427.31 06/13/2015 SEBASTIAN SHIRLEY, ROGELIO Aristeo Ot 585.9 06/13/2015 SEBASTIAN SHIRLEY, ROGELIO Aristeo Ot V45.81 06/13/2015 SEBASTIAN SHIRLEY, ROGELIO Alberts Ot V58.61 06/13/2015 SEBASTIAN SHIRLEY, ROGELIO Alberts [...] SEBASTIAN SHIRLEY, ROGELIO Alberts Ot 585.9 07/20/2015 SEBASTAIN SHIRLEY, ROGELIO Alberts Ot V45.81 07/20/2015 SEBASTIAN [...] Ot D50.9 IRON DEFICIENCY ANEMIA, UNSPECIFIED 09/12/2015 ROGELIO CORTES MD Ot D69.6 THROMBOCYTOPENIA, UNSPECIFIED 09/12/2015 ROGELIO CORTES MD Ot E78.5 HYPERLIPIDEMIA, UNSPECIFIED 09/12/2015 ROGELIO CORTES MD Ot I12.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 09/12/2015 SEBASTIAN SHIRLEY, ROGELIO Alberts Ot I25.10 ATHSCL HEART DISEASE OF [place] CORONARY 09/12/2015 SEBASTIAN SHIRLEY, ROGELIO Alberts Ot I48.91 UNSPECIFIED ATRIAL FIBRILLATION 09/12/2015 ROGELIO CORTES MD Ot N18.9 CHRONIC KIDNEY DISEASE, UNSPECIFIED 09/12/2015 SEBASTIAN SHIRLEY, ROGELIO Alberts Ot Z79.01 EQUIPMENT SCHEDULER (CURRENT) USE OF ANTICOAGULANT 09/12/2015 SEBASTIAN SHIRLEY, ROGELIO Ablerts Ot Z79.899 OTHER EQUIPMENT SCHEDULER (CURRENT) DRUG THERAPY 10/10/2015 CHAR SHIRLEY FACC, AGNIESZKA FACP CCDS Ot I48.91 UNSPECIFIED ATRIAL FIBRILLATION 10/10/2015 CHAR SHIRLEY FACC, AGNIESZKA FACP CCDS Ot Z51.81 ENCOUNTER FOR THERAPEUTIC DRUG LEVEL MON 10/10/2015 CHAR SHIRLEY FACC, AGNIESZKA FACP CCDS Ot Z79.01 SENIOR LIVING (CURRENT) USE OF ANTICOAGULANT 10/30/2015 Ot 272.4 [...] CCDS Ot 786.09 10/30/2015 CHAR SHIRLEY FACC, ALI FACP CCDS Ot V58.69 10/30/2015 BAIMA WILLIAMS L BULK LOADER Ot 790.6 10/30/2015 DORISMA WILLIAMS L BULK LOADER Ot 790.6 10/30/2015 BAIMA, WILLIAMS L BULK LOADER Ot 428.0 10/30/2015 BAIMA, WILLIAMS L BULK LOADER Ot 428.0 10/30/2015 CHAR BURGERC, ALI FACP CCDS Ot 414.00 10/30/2015 CHAR SHIRLEY FACC, ALI FACP CCDS Ot 429.3 10/30/2015 CHAR SHIRLEY [facility], ALI FACP CCDS Ot 786.59 10/30/2015 CHAR SHIRLEY [facility], [facility] FACP CCDS Ot V45.81 10/30/2015 BAIWILLIAMS CANO L BULK LOADER Ot 272.4 10/30/2015 Ot 272.0 10/30/2015 Ot 278.00 10/30/2015 Ot 287.5 10/30/2015 Ot 403.90 10/30/2015 Ot 414.00 10/30/2015 Ot 427.31 10/30/2015 Ot 447.9 10/30/2015 Ot 585.9 10/30/2015 Ot 780.79 10/30/2015 Ot V12.61 10/30/2015 Ot V58.61 10/30/2015 BAIMA, WILLIAMS L BULK LOADER Ot 272.4 10/30/2015 BAIMA, WILLIAMS L BULK LOADER Ot 401.9 10/30/2015 BAIMA, WILLIAMS L BULK LOADER Ot 414.00 10/30/2015 BAIMA, WILLIAMS L BULK LOADER Ot 427.31 10/30/2015 BAIMA, WILLIAMS L BULK LOADER Ot 272.4 10/30/2015 BAIMA, WILLIAMS L BULK LOADER Ot 401.9 10/30/2015 BAIMA, WILLIAMS L BULK LOADER Ot 414.9 10/30/2015 BAIMA, WILLIAMS L BULK LOADER Ot 427.31 10/30/2015 MOI SHIRLEY, JAZIEL R Ot 780.79 10/30/2015 MOI SHIRLEY, JAZIEL R Ot 429.3 10/30/2015 MOI SHIRLEY, JAZIEL R Ot 786.2 10/30/2015 MOI SHIRLEY, JAZIEL R Ot 794.4 10/30/2015 SEBASTIAN SHIRLEY, ROGELIO K Ot D50.9 10/30/2015 SEBASTIAN SHIRLEY, ROGELIO K Ot D69.6 10/30/2015 SEBASTIAN SHIRLEY, ROGELIO K Ot E78.5 10/30/2015 SEBASTIAN SHIRLEY, ROGELIO Aristeo Ot I12.9 10/30/2015 SEBASTIAN SHIRLEY, ROGELIO Aristeo Ot I25.10 10/30/2015 SEBASTIAN SHIRLEY, ROGELIO Aristeo Ot I48.91 10/30/2015 SEBASTIAN SHIRLEY, ROGELIO Aristeo Ot N18.9 10/30/2015 SEBASTIAN SHIRLEY, ROGELIO Aristeo Ot Z79.01 10/30/2015 SEBASTIAN SHIRLEY, ROGELIO Aristeo Ot Z79.899 10/30/2015 CHAR SHIRLEY FAC, ALI FACP CCDS Ot I48.91 10/30/2015 CHAR SHIRLEY FAC, ALI FACP CCDS Ot Z51.81 10/30/2015 CHAR SHIRLEY FAC, ALI FACP CCDS Ot Z79.01 10/30/2015 CHAR SHIRLEY FAC, ALI FACP CCDS Ot I48.91 10/30/2015 CHAR SHIRLEY FAC, ALI FACP CCDS Ot Z51.81 10/30/2015 CHAR SHIRLEY FAC, ALI FACP CCDS Ot Z79.01 10/30/2015 CHAR SHIRLEY FAC, ALI FACP CCDS Ot I48.91 10/30/2015 CHAR SHIRLEY FAC, ALI FACP CCDS Ot Z51.81 10/30/2015 CHAR SHIRLEY FAC, ALI FACP CCDS Ot Z79.01 10/30/2015 CHAR SHIRLEY FAC, ALI FACP CCDS Ot I48.91 10/30/2015 CHAR SHIRLEY [facility], ALI FACP CCDS Ot Z51.81 10/30/2015 CHAR SHIRLEY [facility], ALI FACP CCDS Ot Z79.01 11/01/2015 JAZIEL PRATER MD R Ot D69.6 THROMBOCYTOPENIA, UNSPECIFIED 11/01/2015 JAZIEL PRATER MD R Ot E78.5 HYPERLIPIDEMIA, UNSPECIFIED 11/01/2015 JAZIEL PRATER MD R Ot I12.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 11/01/2015 JAZIEL PRATER MD R Ot I25.10 ATHSCL HEART DISEASE OF [place] CORONARY 11/01/2015 JAZIEL PRATER MD R Ot I48.0 PAROXYSMAL ATRIAL FIBRILLATION 11/01/2015 JAZIEL PRATER MD R Ot I48.2 CHRONIC ATRIAL FIBRILLATION 11/01/2015 JAZIEL PRATER MD R Ot 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 11/01/2015 JAZIEL PRATER MD R Ot N18.2 CHRONIC KIDNEY DISEASE, STAGE 2 (MILD) 11/01/2015 JAZIEL PRATER MD R Ot R07.89 OTHER CHEST PAIN 11/01/2015 JAZIEL PRATER MD R Ot Z79.01 EQUIPMENT SCHEDULER (CURRENT) USE OF ANTICOAGULANT 11/01/2015 SEGLIE MD, JAZIEL R Ot Z95.0 PRESENCE OF CARDIAC [...] ATRIAL FIBRILLATION 12/21/2015 CHAR SHIRLEY FACC, AGNIESZKA BURGERP CCDS Ot Z51.81 ENCOUNTER FOR THERAPEUTIC DRUG LEVEL MON 12/21/2015 CHAR SHIRLEY FACC, AGNIESZKA BURGERP CCDS Ot Z79.01 SENIOR LIVING (CURRENT) USE OF ANTICOAGULANT 01/04/2016 CHAR SHIRLEY FACC, AGNIESZKA FACP CCDS Ot I10 ESSENTIAL (PRIMARY) HYPERTENSION 01/04/2016 CHAR SHIRLEY FACC, AGNIESZKA FACP CCDS Ot I10 ESSENTIAL (PRIMARY) HYPERTENSION 01/04/2016 PITO SHIRLEY, HUMA Escalante Ot S80.12XA CONTUSION OF LEFT LOWER LEG, INITIAL ENC 01/04/2016 HUMA SHELDON MD Ot V58.3XXA OCCUP OF PK-UP/VAN INJ IN NONCLSN TRNSP 01/04/2016 HUMA SHELDON MD Ot Y99.8 OTHER EXTERNAL CAUSE STATUS 01/04/2016 HUMA SHELDON MD Ot Z79.01 SENIOR LIVING (CURRENT) USE OF ANTICOAGULANT 01/04/2016 HUMA SHELDON MD Ot Z95.0 PRESENCE OF CARDIAC PACEMAKER 01/06/2016 HUMA SHELDON MD Ot S80.12XA CONTUSION OF LEFT LOWER LEG, INITIAL ENC 01/06/2016 HUMA SHELDON MD, Ot V58.3XXA OCCUP OF PK-UP/VAN INJ IN NONCLSN TRNSP 01/06/2016 HUMA SHELDON MD Ot Y99.8 OTHER EXTERNAL CAUSE STATUS 01/06/2016 HUMA SHELDON MD, Ot Z79.01 SENIOR LIVING (CURRENT) USE OF ANTICOAGULANT 01/06/2016 HUMA SHELDON MD Ot Z95.0 PRESENCE OF CARDIAC PACEMAKER 01/07/2016 CHAR SHIRLEY FACC, ALI FACP CCDS Ot D69.6 THROMBOCYTOPENIA, UNSPECIFIED 01/07/2016 CHAR SHIRLEY FACJanay, ALI FACP CCDS Ot E78.0 PURE HYPERCHOLESTEROLEMIA 01/07/2016 CHAR SHIRLEY FACC, ALI FACP CCDS Ot I12.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 01/07/2016 CHAR SHIRLEY FACC, ALI FACP CCDS Ot I25.10 ATHSCL HEART DISEASE OF [place] CORONARY 01/07/2016 CHAR SHIRLEY FACJanay, ALI FACP CCDS Ot I34.0 NONRHEUMATIC MITRAL [...] STATUS 01/10/2016 HUMA SHELDON MD Ot Z79.01 EQUIPMENT SCHEDULER (CURRENT) USE OF ANTICOAGULANT 01/10/2016 HUMA SHELDON MD Ot Z95.0 PRESENCE OF CARDIAC PACEMAKER 01/24/2016 CHAR SHIRLEY FACC, AGNIESZKA FACP CCDS Ot D69.6 THROMBOCYTOPENIA, UNSPECIFIED 01/24/2016 CHAR SHIRLEY FACC, AGNIESZKA FACP CCDS Ot E78.0 PURE HYPERCHOLESTEROLEMIA 01/24/2016 CHAR SHIRLEY FACC, AGNIESZKA FACP CCDS Ot I12.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 01/24/2016 AGNIESZKA PARDO MD, FACC FACP CCDS Ot I25.10 ATHSCL HEART DISEASE OF [place] CORONARY 01/24/2016 AGNIESZKA PARDO MD, FACC FACP CCDS Ot I34.0 NONRHEUMATIC MITRAL (VALVE) INSUFFICIENC 01/24/2016 AGNIESZKA PARDO MD, FACC FACP CCDS Ot I48.0 PAROXYSMAL ATRIAL FIBRILLATION 01/24/2016 AGNIESZKA PARDO MD, FACC FACP CCDS Ot 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 01/24/2016 AGNIESZKA PARDO MD, FACC FACP CCDS Ot N18.2 CHRONIC KIDNEY DISEASE, STAGE 2 (MILD) 01/28/2016 AGNIESZKA PARDO MD, FACC FACP CCDS Ot I48.91 UNSPECIFIED ATRIAL FIBRILLATION 01/28/2016 AGNIESZKA PARDO MD, FACC FACP CCDS Ot Z51.81 ENCOUNTER FOR THERAPEUTIC DRUG LEVEL MON 01/28/2016 AGNIESZKA PARDO MD, FACC FACP CCDS Ot Z79.01 EQUIPMENT SCHEDULER (CURRENT) USE OF ANTICOAGULANT 04/11/2016 CHAR SHIRLEY FACC ALI FACP CCDS Ot I48.91 UNSPECIFIED ATRIAL FIBRILLATION 04/11/2016 CHAR SHIRLEY FACC ALI FACP CCDS Ot Z51.81 ENCOUNTER FOR THERAPEUTIC DRUG LEVEL MON 04/11/2016 AGNIESZKA PARDO MD, FACC FACP CCDS Ot Z79.01 EQUIPMENT SCHEDULER (CURRENT) USE OF ANTICOAGULANT 04/29/2016 AGNIESZKA PARDO MD, FACC FACP CCDS Ot I48.91 UNSPECIFIED ATRIAL FIBRILLATION 04/29/2016 CHAR MD FACC, ALI FACP CCDS Ot Z51.81 ENCOUNTER FOR THERAPEUTIC DRUG LEVEL MON 04/29/2016 CHAR SHIRLEY FACJanay, ALI FACP CCDS Ot Z79.01 EQUIPMENT SCHEDULER (CURRENT) USE OF ANTICOAGULANT 05/07/2016 CHAR SHIRLEY FACJanay, ALI FACP CCDS Ot I48.91 UNSPECIFIED ATRIAL FIBRILLATION 05/07/2016 CHAR SHIRLEY FACC, ALI FACP CCDS Ot Z51.81 ENCOUNTER FOR THERAPEUTIC DRUG LEVEL MON 05/07/2016 CHAR SHIRLEY FACJanay, ALI FACP CCDS Ot Z79.01 EQUIPMENT SCHEDULER (CURRENT) USE OF ANTICOAGULANT 06/09/2016 CHAR SHIRLEY FACC, ALI FACP CCDS Ot I48.91 UNSPECIFIED ATRIAL FIBRILLATION 06/09/2016 CHAR SHIRLEY FACC, ALI FACP CCDS Ot Z51.81 ENCOUNTER FOR THERAPEUTIC DRUG LEVEL MON 06/09/2016 CHAR SHIRLEY FACC, ALI FACP CCDS Ot Z79.01 EQUIPMENT SCHEDULER (CURRENT) USE OF ANTICOAGULANT 06/13/2016 ROGELIO CORTES MD Ot D50.9 IRON DEFICIENCY ANEMIA, UNSPECIFIED 06/13/2016 ROGELIO CORTES MD Ot D69.6 THROMBOCYTOPENIA, UNSPECIFIED 06/13/2016 ROGELIO CORTES MD Ot E78.5 HYPERLIPIDEMIA, UNSPECIFIED 06/13/2016 ROGELIO CORTES MD Ot I12.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 06/13/2016 ROGELIO CORTES MD Ot I25.10 ATHSCL HEART DISEASE OF [place] CORONARY 06/13/2016 ROGELIO CORTES MD Ot I48.91 UNSPECIFIED ATRIAL FIBRILLATION 06/13/2016 ROGELIO CORTES MD Ot N18.9 CHRONIC KIDNEY DISEASE, UNSPECIFIED 06/13/2016 ROGELIO CORTES MD Ot Z79.01 EQUIPMENT SCHEDULER (CURRENT) USE OF ANTICOAGULANT 06/13/2016 ROGELIO CORTES MD Ot Z79.899 OTHER EQUIPMENT SCHEDULER (CURRENT) DRUG THERAPY 07/22/2016 ROGELIO CORTES MD Ot D50.9 IRON DEFICIENCY ANEMIA, UNSPECIFIED 07/22/2016 ROGELIO CORTES MD Ot D69.6 THROMBOCYTOPENIA, UNSPECIFIED 07/22/2016 ROGELIO CORTES MD Ot E78.5 HYPERLIPIDEMIA, UNSPECIFIED 07/22/2016 ROGELIO CORTES MD Ot I12.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 07/22/2016 ROGELIO CORTES MD Ot I25.10 ATHSCL HEART DISEASE OF [place] CORONARY 07/22/2016 ROGELIO CORTES MD Ot I48.91 UNSPECIFIED ATRIAL FIBRILLATION 07/22/2016 ROGELIO CORTES MD, Ot N18.9 CHRONIC KIDNEY DISEASE, UNSPECIFIED 07/22/2016 ROGELIO CORTES MD Ot Z79.01 EQUIPMENT SCHEDULER (CURRENT) USE OF ANTICOAGULANT 07/22/2016 ROGELIO CORTES MD Ot Z79.899 OTHER SENIOR LIVING (CURRENT) DRUG THERAPY 08/05/2016 CHAR SHIRLEY FAC, ALI FACP CCDS Ot I48.91 UNSPECIFIED ATRIAL FIBRILLATION 08/05/2016 CHAR SHIRLEY FAC, ALI FACP CCDS Ot Z51.81 ENCOUNTER FOR THERAPEUTIC DRUG LEVEL MON 08/05/2016 CHAR SHIRLEY FACJanay, ALI FACP CCDS Ot Z79.01 SENIOR LIVING (CURRENT) USE OF ANTICOAGULANT 09/10/2016 ROGELIO CORTES MD Ot D50.9 IRON DEFICIENCY ANEMIA, UNSPECIFIED 09/10/2016 ROGELIO CORTES MD Ot D69.6 THROMBOCYTOPENIA, UNSPECIFIED 09/10/2016 ROGELIO CORTES MD Ot E78.5 HYPERLIPIDEMIA, UNSPECIFIED 09/10/2016 ROGELIO CORTES MD Ot I12.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 09/10/2016 ROGELIO CORTES MD Ot I25.10 ATHSCL HEART DISEASE OF [place] CORONARY 09/10/2016 ROGELIO CORTES MD, Ot I48.91 UNSPECIFIED ATRIAL FIBRILLATION 09/10/2016 ROGELIO CORTES MD Ot N18.9 CHRONIC KIDNEY DISEASE, UNSPECIFIED 09/10/2016 ROGELIO CORTES MD Ot Z79.01 SENIOR LIVING (CURRENT) USE OF ANTICOAGULANT 09/10/2016 ROGELIO CORTES MD Ot Z79.899 OTHER SENIOR LIVING (CURRENT) DRUG THERAPY 09/11/2016 ROGELIO CORTES MD Ot D50.9 IRON DEFICIENCY ANEMIA, UNSPECIFIED 09/11/2016 ROGELIO CORTES MD Ot D69.6 THROMBOCYTOPENIA, UNSPECIFIED 09/11/2016 ROGELIO CORTES MD Ot E78.5 HYPERLIPIDEMIA, UNSPECIFIED 09/11/2016 ROGELIO CORTES MD Ot I12.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 09/11/2016 ROGELIO CORTES MD Ot I25.10 ATHSCL HEART DISEASE OF [place] CORONARY 09/11/2016 ROGELIO CORTES MD Ot I48.91 UNSPECIFIED ATRIAL FIBRILLATION 09/11/2016 ROGELIO CORTES MD Ot N18.9 CHRONIC KIDNEY DISEASE, UNSPECIFIED 09/11/2016 ROGELIO CORTES MD Ot Z79.01 SENIOR LIVING (CURRENT) USE OF ANTICOAGULANT 09/11/2016 ROGELIO CORTES MD Ot Z79.899 OTHER SENIOR LIVING (CURRENT) DRUG THERAPY 10/15/2016 CHAR SHIRLEY FAC, ALI FACP CCDS Ot I48.91 UNSPECIFIED ATRIAL FIBRILLATION 10/15/2016 CHAR SHIRLEY FACC, ALI FACP CCDS Ot Z51.81 ENCOUNTER FOR THERAPEUTIC DRUG LEVEL MON 10/15/2016 CHAR SHIRLEY FACC, ALI FACP CCDS Ot Z79.01 SENIOR LIVING (CURRENT) USE OF ANTICOAGULANT 10/16/2016 CHAR SHIRLEY FACC, ALI FACP CCDS Ot I48.91 UNSPECIFIED ATRIAL FIBRILLATION 10/16/2016 CHAR SHIRLEY FACC, ALI FACP CCDS Ot Z51.81 ENCOUNTER FOR THERAPEUTIC DRUG LEVEL MON 10/16/2016 CHAR SHIRLEY FACJanay, ALI FACP CCDS Ot Z79.01 SENIOR LIVING (CURRENT) USE OF ANTICOAGULANT 11/03/2016 CHAR SHIRLEY FACC, ALI FACP CCDS Ot I48.91 UNSPECIFIED ATRIAL FIBRILLATION 11/03/2016 CHAR SHIRLEY FACJanay, ALI FACP CCDS Ot Z51.81 ENCOUNTER FOR THERAPEUTIC DRUG LEVEL MON 11/03/2016 CHAR SHIRLEY FACC, ALI FACP CCDS Ot Z79.01 EQUIPMENT SCHEDULER (CURRENT) USE OF ANTICOAGULANT 12/10/2016 ROGELIO CORTES MD Ot D50.9 IRON DEFICIENCY ANEMIA, UNSPECIFIED 12/10/2016 ROGELIO CORTES MD Ot D69.6 THROMBOCYTOPENIA, UNSPECIFIED 12/10/2016 ROGELIO CORTES MD Ot E78.5 HYPERLIPIDEMIA, UNSPECIFIED 12/10/2016 ROGELIO CORTES MD Ot I12.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 12/10/2016 ROGELIO CORTES MD Ot I25.10 ATHSCL HEART DISEASE OF [place] CORONARY 12/10/2016 ROGELIO CORTES MD Ot I48.91 UNSPECIFIED ATRIAL FIBRILLATION 12/10/2016 ROGELIO CORTES MD Ot N18.9 CHRONIC KIDNEY DISEASE, UNSPECIFIED 12/10/2016 ROGELIO CORTES MD Ot Z79.01 SENIOR LIVING (CURRENT) USE OF ANTICOAGULANT 12/10/2016 ROGELIO CORTES MD Ot Z79.899 OTHER SENIOR LIVING (CURRENT) DRUG THERAPY 12/11/2016 ROGELIO CORTES MD Ot D50.9 IRON DEFICIENCY ANEMIA, UNSPECIFIED 12/11/2016 ROGELIO CORTES MD Ot D69.6 THROMBOCYTOPENIA, UNSPECIFIED 12/11/2016 ROGELIO CORTES MD Ot E78.5 HYPERLIPIDEMIA, UNSPECIFIED 12/11/2016 ROGELIO CORTES MD Ot I12.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 12/11/2016 ROGELIO CORTES MD Ot I25.10 ATHSCL HEART DISEASE OF [place] CORONARY 12/11/2016 ROGELIO CORTES MD Ot I48.91 UNSPECIFIED ATRIAL FIBRILLATION 12/11/2016 ROGELIO CORTES MD Ot N18.9 CHRONIC KIDNEY DISEASE, UNSPECIFIED 12/11/2016 ROGELIO CORTES MD Ot Z79.01 SENIOR LIVING (CURRENT) USE OF ANTICOAGULANT 12/11/2016 ROGELIO CORTES MD Ot Z79.899 OTHER SENIOR LIVING (CURRENT) DRUG THERAPY 01/13/2017 CHAR SHIRLEY FACC, ALI FACP CCDS Ot I48.91 UNSPECIFIED ATRIAL FIBRILLATION 01/13/2017 CHAR SHIRLEY FACC, ALI FACP CCDS Ot Z79.01 SENIOR LIVING (CURRENT) USE OF ANTICOAGULANT 01/14/2017 CHAR SHIRLEY FACC, ALI FACP CCDS Ot I48.91 UNSPECIFIED ATRIAL FIBRILLATION 01/14/2017 CHAR SHIRLEY FACC, ALI FACP CCDS Ot Z79.01 SENIOR LIVING (CURRENT) USE OF ANTICOAGULANT 01/14/2017 ROGELIO CORTES MD Ot D50.9 IRON DEFICIENCY ANEMIA, UNSPECIFIED 01/14/2017 ROGELIO CORTES MD Ot D69.6 THROMBOCYTOPENIA, UNSPECIFIED 01/14/2017 ROGELIO CORTES MD Ot E78.5 HYPERLIPIDEMIA, UNSPECIFIED 01/14/2017 ROGELIO CORTES MD Ot I12.9 HYPERTENSIVE CHRONIC KIDNEY DISEASE W 01/14/2017 ROGELIO CORTES MD Ot I25.10 ATHSCL HEART DISEASE OF [place] CORONARY 01/14/2017 ROGELIO CORTES MD Ot I48.91 UNSPECIFIED ATRIAL FIBRILLATION 01/14/2017 ROGELIO CORTES MD Ot N18.9 CHRONIC KIDNEY DISEASE, UNSPECIFIED 01/14/2017 ROGELIO CORTES MD Ot Z79.01 EQUIPMENT SCHEDULER (CURRENT) USE OF ANTICOAGULANT 01/14/2017 ROGELIO CORTES MD Ot Z79.899 OTHER EQUIPMENT SCHEDULER (CURRENT) DRUG THERAPY 01/14/2017 ROGELIO CORTES MD Ot D50.9 IRON DEFICIENCY ANEMIA, UNSPECIFIED 01/14/2017 ROGELIO CORTES MD Ot D69.6 THROMBOCYTOPENIA, UNSPECIFIED 01/14/2017 ROGELIO CORTES MD Ot E78.5 HYPERLIPIDEMIA, UNSPECIFIED 01/14/2017 ROGELIO CORTES MD Ot I12.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 01/14/2017 ROGELIO CORTES MD Ot I25.10 ATHSCL HEART DISEASE OF [place] CORONARY 01/14/2017 ROGELIO CORTES MD Ot I48.91 UNSPECIFIED ATRIAL FIBRILLATION 01/14/2017 ROGELIO CORTES MD Ot N18.9 CHRONIC KIDNEY DISEASE, UNSPECIFIED 01/14/2017 ROGELIO CORTES MD Ot Z79.01 SENIOR LIVING (CURRENT) USE OF ANTICOAGULANT 01/14/2017 ROGELIO CORTES MD Ot Z79.899 OTHER SENIOR LIVING (CURRENT) DRUG THERAPY 01/14/2017 ROGELIO CORTES MD Ot D50.9 IRON DEFICIENCY ANEMIA, UNSPECIFIED 01/14/2017 ROGELIO CORTES MD Ot D69.6 THROMBOCYTOPENIA, UNSPECIFIED 01/14/2017 ROGELIO CORTES MD Ot E78.5 HYPERLIPIDEMIA, UNSPECIFIED 01/14/2017 ROGELIO CORTES MD Ot I12.9 HYPERTENSIVE CHRONIC KIDNEY DISEASE W 01/14/2017 ROGELIO CORTES MD Ot I25.10 ATHSCL HEART DISEASE OF [place] CORONARY 01/14/2017 ROGELIO CORTES MD Ot I48.91 UNSPECIFIED ATRIAL FIBRILLATION 01/14/2017 ROGELIO CORTES MD Ot N18.9 CHRONIC KIDNEY DISEASE, UNSPECIFIED 01/14/2017 ROGELIO CORTES MD Ot Z79.01 SENIOR LIVING (CURRENT) USE OF ANTICOAGULANT 01/14/2017 ROGELIO CORTES MD Ot Z79.899 OTHER EQUIPMENT SCHEDULER (CURRENT) DRUG THERAPY 03/10/2017 ROGELIO CORTES MD Ot D50.9 IRON DEFICIENCY ANEMIA, UNSPECIFIED 03/10/2017 ROGELIO CORTES MD Ot D69.6 THROMBOCYTOPENIA, UNSPECIFIED 03/10/2017 ROGELIO CORTES MD Ot E78.5 HYPERLIPIDEMIA, UNSPECIFIED 03/10/2017 ROGELIO CORTES MD Ot I12.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 03/10/2017 ROGELIO CORTES MD Ot I25.10 ATHSCL HEART DISEASE OF [place] CORONARY 03/10/2017 ROGELIO CORTES MD Ot I48.91 UNSPECIFIED ATRIAL FIBRILLATION 03/10/2017 ROGELIO CORTES MD Ot N18.9 CHRONIC KIDNEY DISEASE, UNSPECIFIED 03/10/2017 ROGELIO CORTES MD Ot Z79.01 SENIOR LIVING (CURRENT) USE OF ANTICOAGULANT 03/10/2017 ROGELIO CORTES MD Ot Z79.899 OTHER SENIOR LIVING (CURRENT) DRUG THERAPY 03/16/2017 BAIMA, WILLIAMS L BULK LOADER Ot D50.9 IRON DEFICIENCY ANEMIA, UNSPECIFIED 03/16/2017 BAIMA, WILLIAMS L BULK LOADER Ot D69.6 THROMBOCYTOPENIA, UNSPECIFIED 03/16/2017 BAIMA, WILLIAMS L BULK LOADER Ot E78.5 HYPERLIPIDEMIA, UNSPECIFIED 03/16/2017 BAIMA, WILLIAMS L BULK LOADER Ot I12.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 03/16/2017 BAIMA, WILLIAMS L BULK LOADER Ot I25.10 ATHSCL HEART DISEASE OF [place] CORONARY 03/16/2017 BAIMA, WILLIAMS L BULK LOADER Ot I48.91 UNSPECIFIED ATRIAL FIBRILLATION 03/16/2017 BAIMA, WILLIAMS L BULK LOADER Ot N18.9 CHRONIC KIDNEY DISEASE, UNSPECIFIED 03/16/2017 BAIMA, WILLIAMS L BULK LOADER Ot Z79.01 SENIOR LIVING (CURRENT) USE OF ANTICOAGULANT 03/16/2017 BAIMA, WILLIAMS L BULK LOADER Ot Z79.899 OTHER EQUIPMENT SCHEDULER (CURRENT) DRUG THERAPY 03/17/2017 BAIMA, WILLIAMS L BULK LOADER Ot D50.9 IRON DEFICIENCY ANEMIA, UNSPECIFIED 03/17/2017 BAIMA, WILLIAMS L BULK LOADER Ot D69.6 THROMBOCYTOPENIA, UNSPECIFIED 03/17/2017 BAIMA, WILLIAMS L BULK LOADER Ot E78.5 HYPERLIPIDEMIA, UNSPECIFIED 03/17/2017 BAIMA, WILLIAMS L BULK LOADER Ot I12.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 03/17/2017 BAIMA, WILLIAMS L BULK LOADER Ot I25.10 ATHSCL HEART DISEASE OF [place] CORONARY 03/17/2017 BAIMA, WILLIAMS L BULK LOADER Ot I48.91 UNSPECIFIED ATRIAL FIBRILLATION 03/17/2017 BAIMA, WILLIAMS L BULK LOADER Ot N18.9 CHRONIC KIDNEY DISEASE, UNSPECIFIED 03/17/2017 BAIMA, WILLIAMS L BULK LOADER Ot Z79.01 SENIOR LIVING (CURRENT) USE OF ANTICOAGULANT 03/17/2017 BAIMA, WILLIAMS L BULK LOADER Ot Z79.899 OTHER SENIOR LIVING (CURRENT) DRUG THERAPY 04/15/2017 BAIMA, WILLIAMS L BULK LOADER Ot D50.9 IRON DEFICIENCY ANEMIA, UNSPECIFIED 04/15/2017 BAIMA, WILLIAMS L BULK LOADER Ot D69.6 THROMBOCYTOPENIA, UNSPECIFIED 04/15/2017 BAIMA, WILLIAMS L BULK LOADER Ot E78.5 HYPERLIPIDEMIA, UNSPECIFIED 04/15/2017 BAIMA, WILLIAMS L BULK LOADER Ot I12.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 04/15/2017 BAIMA, WILLIAMS L BULK LOADER Ot I25.10 ATHSCL HEART DISEASE OF [place] CORONARY 04/15/2017 BAIMA, WILLIAMS L BULK LOADER Ot I48.91 UNSPECIFIED ATRIAL FIBRILLATION 04/15/2017 BAIMA, WILLIAMS L BULK LOADER Ot N18.9 CHRONIC KIDNEY DISEASE, UNSPECIFIED 04/15/2017 BAIMA, WILLIAMS L BULK LOADER Ot Z79.01 SENIOR LIVING (CURRENT) USE OF ANTICOAGULANT 04/15/2017 BAIMA, WILILAMS L BULK LOADER Ot Z79.899 OTHER EQUIPMENT SCHEDULER (CURRENT) DRUG THERAPY 04/28/2017 BAIMA, WILLIAMS L BULK LOADER Ot D50.9 IRON DEFICIENCY ANEMIA, UNSPECIFIED 04/28/2017 BAIMA, WILLIAMS L BULK LOADER Ot D69.6 THROMBOCYTOPENIA, UNSPECIFIED 04/28/2017 BAIMA, WILLIAMS L BULK LOADER Ot E78.5 HYPERLIPIDEMIA, UNSPECIFIED 04/28/2017 BAIMA, WILLIAMS L BULK LOADER Ot I12.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 04/28/2017 BAIMA, WILLIAMS L BULK LOADER Ot I25.10 ATHSCL HEART DISEASE OF [place] CORONARY 04/28/2017 BAIMA, WILLIAMS L BULK LOADER Ot I48.91 UNSPECIFIED ATRIAL FIBRILLATION 04/28/2017 BAIMA, WILLIAMS L BULK LOADER Ot N18.9 CHRONIC KIDNEY DISEASE, UNSPECIFIED 04/28/2017 BAIMA, WILLIAMS L BULK LOADER Ot Z79.01 EQUIPMENT SCHEDULER (CURRENT) USE OF ANTICOAGULANT 04/28/2017 BAIMA, WILLIAMS L BULK LOADER Ot Z79.899 OTHER EQUIPMENT SCHEDULER (CURRENT) DRUG THERAPY 05/18/2017 Ot 786.50 CHEST PAIN NOS 05/18/2017 Ot 427.31 ATRIAL FIBRILLATION 05/18/2017 Ot V58.69 OTH MED,LT, CURRENT USE 05/18/2017 Ot 511.9 PLEURAL EFFUSION NOS 05/18/2017 Ot 511.9 PLEURAL EFFUSION NOS 05/18/2017 Ot 429.3 CARDIOMEGALY 05/18/2017 Ot 511.9 PLEURAL EFFUSION NOS 05/18/2017 Ot 786.2 COUGH 05/18/2017 Ot V45.01 CARDIAC PACEMAKER IN SITU 05/18/2017 CHAR SHIRLEY FACC, AGNIESZKA FACP CCDS Ot 427.31 ATRIAL FIBRILLATION 05/18/2017 CHAR SHIRLEY FACC, ALI FACP CCDS Ot 729.81 SWELLING OF LIMB 05/18/2017 CHAR SHIRLEY FACC, ALI FACP CCDS Ot 786.09 RESPIRATORY ABNORM NEC 05/18/2017 CHAR SHIRLEY FACC, ALI FACP CCDS Ot V58.69 OTH MED,LT,CURRENT USE 05/18/2017 BAIMA, WILLIAMS L BULK LOADER Ot 790.6 ABN BLOOD CHEMISTRY NEC 05/18/2017 BAIMA, WILLIAMS L BULK LOADER Ot 790.6 ABN BLOOD CHEMISTRY NEC 05/18/2017 BAIMA, WILLIAMS L BULK LOADER Ot 428.0 CONGESTIVE HEART FAILURE NOS 05/18/2017 BAIMA, WILLIAMS L BULK LOADER Ot 428.0 CONGESTIVE HEART FAILURE NOS 05/18/2017 CHAR SHIRLEY FACC, AGNIESZKA FACP CCDS Ot 414.00 CORON ATHEROSCLER NOS TYPE VESSEL, NATIV 05/18/2017 CHAR SHIRLEY FACC, ALI FACP CCDS Ot 429.3 CARDIOMEGALY 05/18/2017 CHAR SHIRLEY FACC, ALI FACP CCDS Ot 786.59 CHEST PAIN NEC 05/18/2017 CHAR SHIRLEY FACC, ALI FACP CCDS Ot 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 05/18/2017 BAIMA, WILLIAMS L BULK LOADER Ot 272.4 HYPERLIPIDEMIA NEC/NOS 05/18/2017 Ot 272.0 [...] (RECURRENT) 05/18/2017 Ot V58.61 ANTICOAGULANTS,LT,CURRENT USE 05/18/2017 BAIMA, WILLIAMS L BULK LOADER Ot 272.4 HYPERLIPIDEMIA NEC/NOS 05/18/2017 BAIMA, WILLIAMS L BULK LOADER Ot 401.9 HYPERTENSION NOS 05/18/2017 SCOTT, WILLIAMS L BULK LOADER Ot 414.00 CORON ATHEROSCLER NOS TYPE VESSEL, NATIV 05/18/2017 SCOTT, WILLIAMS L BULK LOADER Ot 427.31 ATRIAL FIBRILLATION 05/18/2017 BAIMA, WILLIAMS L BULK LOADER Ot 272.4 HYPERLIPIDEMIA NEC/NOS 05/18/2017 DORISMA, WILLIAMS L BULK LOADER Ot 401.9 HYPERTENSION NOS 05/18/2017 SCOTT, WILLIAMS L BULK LOADER Ot 414.9 CHR ISCHEMIC HRT DIS NOS 05/18/2017 SCOTT WILLIAMS L BULK LOADER Ot 427.31 ATRIAL FIBRILLATION 05/18/2017 MOI SHIRLEY, JAZIEL R Ot 780.79 OTH MALAISE FATIGUE 05/18/2017 MOI SHIRLEY JAZIEL R Ot 429.3 CARDIOMEGALY 05/18/2017 MOI SHIRLEY JAZIEL R Ot 786.2 COUGH 05/18/2017 MOI SHIRLEY JAZIEL R Ot 794.4 ABN KIDNEY FUNCT STUDY 05/18/2017 MOI SHIRLEY JAZIEL R Ot I48.91 UNSPECIFIED ATRIAL FIBRILLATION 05/18/2017 MOI SHIRLEY JAZIEL R Ot Z51.81 ENCOUNTER FOR THERAPEUTIC DRUG LEVEL MON 05/18/2017 CHAR SHIRLEY FACC, AGNIESZKA FACP CCDS Ot D69.6 THROMBOCYTOPENIA, UNSPECIFIED 05/18/2017 CHAR SHIRLEY FACC, AGNIESZKA FACP CCDS Ot E78.0 PURE HYPERCHOLESTEROLEMIA 05/18/2017 CHAR SHIRLEY FACC, ALI FACP CCDS Ot I12.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 05/18/2017 CHAR SHIRLEY FACC, ALI FACP CCDS Ot I25.10 ATHSCL HEART DISEASE OF [place] CORONARY 05/18/2017 CHAR SHIRLEY FACC, AGNIESZKA FACP CCDS Ot I34.0 NONRHEUMATIC MITRAL (VALVE) INSUFFICIENC 05/18/2017 CHAR SHIRLEY FACC, AGNIESZKA FACP CCDS Ot I48.0 PAROXYSMAL ATRIAL FIBRILLATION 05/18/2017 CHAR SHIRLEY FACC, AGNIESZKA FACP CCDS Ot 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 05/18/2017 CHAR SHIRLEY FACC, ALI FACP CCDS Ot N18.2 CHRONIC KIDNEY DISEASE, STAGE 2 (MILD) 05/18/2017 CHAR SHIRLEY FACC, AGNIESZKA FACP CCDS Ot I48.91 UNSPECIFIED ATRIAL FIBRILLATION 05/18/2017 CHAR SHIRLEY FACC, ALI FACP CCDS Ot Z79.01 SENIOR LIVING (CURRENT) USE OF ANTICOAGULANT 05/18/2017 BAIMA, WILLIAMS L BULK LOADER Ot D50.9 IRON DEFICIENCY ANEMIA, UNSPECIFIED 05/18/2017 BAIMA, WILLIAMS L BULK LOADER Ot D69.6 THROMBOCYTOPENIA, UNSPECIFIED 05/18/2017 BAIMA, WILLIAMS L BULK LOADER Ot E78.5 HYPERLIPIDEMIA, UNSPECIFIED 05/18/2017 BAIMA, WILLIAMS L BULK LOADER Ot I12.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 05/18/2017 BAIMA, WILLIAMS L BULK LOADER Ot I25.10 ATHSCL HEART DISEASE OF [place] CORONARY 05/18/2017 BAIMA, WILLIAMS L BULK LOADER Ot I48.91 UNSPECIFIED ATRIAL FIBRILLATION 05/18/2017 BAIMA, WILLIAMS L BULK LOADER Ot N18.9 CHRONIC KIDNEY DISEASE, UNSPECIFIED 05/18/2017 BAIMA, WILLIAMS L BULK LOADER Ot Z79.01 EQUIPMENT SCHEDULER (CURRENT) USE OF ANTICOAGULANT 05/18/2017 BAIMA, WILLIAMS L BULK LOADER Ot Z79.899 OTHER SENIOR LIVING (CURRENT) DRUG THERAPY 05/30/2017 BAIMA, WILLIAMS L BULK LOADER Ot I48.0 PAROXYSMAL ATRIAL FIBRILLATION 05/30/2017 BAIMA, WILLIAMS L BULK LOADER Ot Z79.01 SENIOR LIVING (CURRENT) USE OF ANTICOAGULANT 06/03/2017 BAIMA, WILLIAMS L BULK LOADER Ot I48.0 PAROXYSMAL ATRIAL FIBRILLATION 06/03/2017 BAIMA, WILLIAMS L BULK LOADER Ot Z79.01 EQUIPMENT SCHEDULER (CURRENT) USE OF ANTICOAGULANT 06/11/2017 CHAR SHIRLEY FACC, AGNIESZKA BURGERP CCDS Ot E78.4 OTHER HYPERLIPIDEMIA 06/11/2017 CHAR SHIRLEY FACC, ALI FACP CCDS Ot I12.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 06/11/2017 CHAR SHIRLEY FACC, AGNIESZKA FACP CCDS Ot I48.0 PAROXYSMAL ATRIAL FIBRILLATION 06/11/2017 CHAR SHIRLEY FACC, AGNIESZKA BURGERP CCDS Ot I49.5 SICK SINUS SYNDROME 06/11/2017 CHAR SHIRLEY FACC, ALI FACP CCDS Ot 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 06/11/2017 CHAR SHIRLEY FACC, AGNIESZKA FRIEND CCDS Ot N18.2 CHRONIC KIDNEY DISEASE, STAGE 2 (MILD) 06/11/2017 CHAR SHIRLEY [facility], AGNIESZKA FRIEND CCDS Ot Z79.01 SENIOR LIVING (CURRENT) USE OF ANTICOAGULANT 06/19/2017 SLOAN NICE MD Ot D50.9 IRON DEFICIENCY ANEMIA, UNSPECIFIED 06/19/2017 SLOAN NICE MD Ot D69.6 THROMBOCYTOPENIA, UNSPECIFIED 06/19/2017 SLOAN NICE MD Ot E78.5 HYPERLIPIDEMIA, UNSPECIFIED 06/19/2017 LORRAINE NICE MDNER Ot I12.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 06/19/2017 LORRAINE NICE MDNER Ot I25.10 ATHSCL HEART DISEASE OF [place] CORONARY 06/19/2017 SLOAN NICE MD Ot I48.91 UNSPECIFIED ATRIAL FIBRILLATION 06/19/2017 SLOAN NICE MD Ot N18.9 CHRONIC KIDNEY DISEASE, UNSPECIFIED 06/19/2017 SLOAN NICE MD Ot Z79.01 EQUIPMENT SCHEDULER (CURRENT) USE OF ANTICOAGULANT 06/19/2017 SLOAN NICE MD Ot Z79.899 OTHER EQUIPMENT SCHEDULER (CURRENT) DRUG THERAPY 07/06/2017 SLOAN NICE MD Ot D50.9 IRON DEFICIENCY ANEMIA, UNSPECIFIED 07/06/2017 SLOAN NICE MD Ot D69.6 THROMBOCYTOPENIA, UNSPECIFIED 07/06/2017 SLOAN NICE MD Ot E78.5 HYPERLIPIDEMIA, UNSPECIFIED 07/06/2017 SLOAN NICE MD Ot I12.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 07/06/2017 SLOAN NICE MD Ot I25.10 ATHSCL HEART DISEASE OF [place] CORONARY 07/06/2017 SLOAN NICE MD Ot I48.91 UNSPECIFIED ATRIAL FIBRILLATION 07/06/2017 SLOAN NICE MD Ot N18.9 CHRONIC KIDNEY DISEASE, UNSPECIFIED 07/06/2017 SLOAN NICE MD Ot Z79.01 EQUIPMENT SCHEDULER (CURRENT) USE OF ANTICOAGULANT 07/06/2017 SLOAN NICE MD Ot Z79.899 OTHER SENIOR LIVING (CURRENT) DRUG THERAPY 07/06/2017 SLOAN NICE MD Ot D50.9 IRON DEFICIENCY ANEMIA, UNSPECIFIED 07/06/2017 SLOAN NICE MD Ot D69.6 THROMBOCYTOPENIA, UNSPECIFIED 07/06/2017 SLOAN NICE MD Ot E78.5 HYPERLIPIDEMIA, UNSPECIFIED 07/06/2017 SLOAN NCIE MD Ot I12.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 07/06/2017 SLOAN NICE MD Ot I25.10 ATHSCL HEART DISEASE OF [place] CORONARY 07/06/2017 SLOAN NICE MD Ot I48.91 UNSPECIFIED ATRIAL FIBRILLATION 07/06/2017 SLOAN NICE MD Ot N18.9 CHRONIC KIDNEY DISEASE, UNSPECIFIED 07/06/2017 SLOAN NICE MD Ot Z79.01 EQUIPMENT SCHEDULER (CURRENT) USE OF ANTICOAGULANT 07/06/2017 SLOAN NICE MD Ot Z79.899 OTHER SENIOR LIVING (CURRENT) DRUG THERAPY 07/16/2017 BAIMA, WILLIAMS L BULK LOADER Ot D50.9 IRON DEFICIENCY ANEMIA, UNSPECIFIED 07/16/2017 BAIMA, WILLIAMS L BULK LOADER Ot D69.6 THROMBOCYTOPENIA, UNSPECIFIED 07/16/2017 BAIMA, WILLIAMS L BULK LOADER Ot E78.5 HYPERLIPIDEMIA, UNSPECIFIED 07/16/2017 BAIMA, WILLIAMS L BULK LOADER Ot I12.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 07/16/2017 BAIMA, WILLIAMS L BULK LOADER Ot I25.10 ATHSCL HEART DISEASE OF [place] CORONARY 07/16/2017 BAIMA, WILLIAMS L BULK LOADER Ot I48.91 UNSPECIFIED ATRIAL FIBRILLATION 07/16/2017 BAIMA, WILLIAMS L BULK LOADER Ot N18.9 CHRONIC KIDNEY DISEASE, UNSPECIFIED 07/16/2017 BAIMA, WILLIAMS L BULK LOADER Ot Z79.01 EQUIPMENT SCHEDULER (CURRENT) USE OF ANTICOAGULANT 07/16/2017 BAIMA, WILLIAMS L BULK LOADER Ot Z79.899 OTHER EQUIPMENT SCHEDULER (CURRENT) DRUG THERAPY 07/17/2017 BAIMA, WILLIAMS L BULK LOADER Ot I48.91 UNSPECIFIED ATRIAL FIBRILLATION 07/17/2017 BAIMA, WILLIAMS L BULK LOADER Ot Z79.01 SENIOR LIVING (CURRENT) USE OF ANTICOAGULANT 07/21/2017 BAIMA, WILLIAMS L BULK LOADER Ot I48.0 PAROXYSMAL ATRIAL FIBRILLATION 07/21/2017 BAIMA, WILLIAMS L BULK LOADER Ot Z79.01 SENIOR LIVING (CURRENT) USE OF ANTICOAGULANT 07/27/2017 SLOAN NICE MD, Ot D50.9 IRON DEFICIENCY ANEMIA, UNSPECIFIED 07/27/2017 SLOAN NICE MD Ot D69.6 THROMBOCYTOPENIA, UNSPECIFIED 07/27/2017 SLOAN NICE MD Ot E78.5 HYPERLIPIDEMIA, UNSPECIFIED 07/27/2017 SLOAN NICE MD Ot I12.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 07/27/2017 SLOAN NICE MD Ot I25.10 ATHSCL HEART DISEASE OF [place] CORONARY 07/27/2017 SLOAN NICE MD Ot I48.91 UNSPECIFIED ATRIAL FIBRILLATION 07/27/2017 SLOAN NICE MD, Ot N18.9 CHRONIC KIDNEY DISEASE, UNSPECIFIED 07/27/2017 SLOAN NICE MD Ot Z79.01 EQUIPMENT SCHEDULER (CURRENT) USE OF ANTICOAGULANT 07/27/2017 SLOAN NICE MD Ot Z79.899 OTHER SENIOR LIVING (CURRENT) DRUG THERAPY 08/04/2017 BAIMA, WILLIAMS L BULK LOADER Ot I48.91 UNSPECIFIED ATRIAL FIBRILLATION 08/04/2017 BAIMA, WILLIAMS L BULK LOADER Ot Z79.01 SENIOR LIVING (CURRENT) USE OF ANTICOAGULANT 09/13/2017 BAIMA, WILLIAMS L BULK LOADER Ot I48.91 UNSPECIFIED ATRIAL FIBRILLATION 09/13/2017 BAIMA, WILLIAMS L BULK LOADER Ot Z79.01 SENIOR LIVING (CURRENT) USE OF ANTICOAGULANT 09/16/2017 SLOAN NICE MD Ot D50.9 IRON DEFICIENCY ANEMIA, UNSPECIFIED 09/16/2017 SLOAN NICE MD Ot D69.6 THROMBOCYTOPENIA, UNSPECIFIED 09/16/2017 SLOAN NICE MD Ot E78.5 HYPERLIPIDEMIA, UNSPECIFIED 09/16/2017 SLOAN NICE MD Ot I12.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 09/16/2017 SLOAN NICE MD Ot I25.10 ATHSCL HEART DISEASE OF [place] CORONARY 09/16/2017 SLOAN NICE MD Ot I48.91 UNSPECIFIED ATRIAL FIBRILLATION 09/16/2017 SLOAN NICE MD Ot N18.9 CHRONIC KIDNEY DISEASE, UNSPECIFIED 09/16/2017 SLOAN NICE MD Ot Z79.01 EQUIPMENT SCHEDULER (CURRENT) USE OF ANTICOAGULANT 09/16/2017 SLOAN NICE MD Ot Z79.899 OTHER EQUIPMENT SCHEDULER (CURRENT) DRUG THERAPY 09/17/2017 SLOAN NICE MD Ot D50.9 IRON DEFICIENCY ANEMIA, UNSPECIFIED 09/17/2017 SLOAN NICE MD Ot D69.6 THROMBOCYTOPENIA, UNSPECIFIED 09/17/2017 SLOAN NICE MD Ot E78.5 HYPERLIPIDEMIA, UNSPECIFIED 09/17/2017 SLOAN NICE MD Ot I12.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 09/17/2017 SLOAN NICE MD Ot I25.10 ATHSCL HEART DISEASE OF [place] CORONARY 09/17/2017 SLOAN NICE MD Ot I48.91 UNSPECIFIED ATRIAL FIBRILLATION 09/17/2017 SLOAN NICE MD Ot N18.9 CHRONIC KIDNEY DISEASE, UNSPECIFIED 09/17/2017 SLOAN NICE MD Ot Z79.01 SENIOR LIVING (CURRENT) USE OF ANTICOAGULANT 09/17/2017 SLOAN NICE MD Ot Z79.899 OTHER EQUIPMENT SCHEDULER (CURRENT) DRUG THERAPY 09/19/2017 BAIMA, WILLIAMS L BULK LOADER Ot I48.91 UNSPECIFIED ATRIAL FIBRILLATION 09/19/2017 BAIMA, WILLIAMS L BULK LOADER Ot Z79.01 SENIOR LIVING (CURRENT) USE OF ANTICOAGULANT 10/08/2017 BAIMA, WILLIAMS L BULK LOADER Ot I48.91 UNSPECIFIED ATRIAL FIBRILLATION 10/08/2017 BAIMA, WILLIAMS L BULK LOADER Ot Z79.01 SENIOR LIVING (CURRENT) USE OF ANTICOAGULANT 10/08/2017 BAIMA, WILLIAMS L BULK LOADER Ot I48.91 UNSPECIFIED ATRIAL FIBRILLATION 10/08/2017 BAIMA, WILLIAMS L BULK LOADER Ot Z79.01 SENIOR LIVING (CURRENT) USE OF ANTICOAGULANT 10/13/2017 BAIMA, WILLIAMS L BULK LOADER Ot I48.91 UNSPECIFIED ATRIAL FIBRILLATION 10/13/2017 BAIMA, WILLIAMS L BULK LOADER Ot Z79.01 SENIOR LIVING (CURRENT) USE OF ANTICOAGULANT 11/02/2017 BAIMA, WILLIAMS L BULK LOADER Ot I48.91 UNSPECIFIED ATRIAL FIBRILLATION 11/02/2017 BAIMA, WILLIAMS L BULK LOADER Ot Z79.01 SENIOR LIVING (CURRENT) USE OF ANTICOAGULANT 11/16/2017 CHAR SHIRLEY FACC, ALI FACP CCDS Ot E66.8 OTHER OBESITY 11/16/2017 CHAR SHIRLEY FACC, ALI FACP CCDS Ot E78.5 HYPERLIPIDEMIA, UNSPECIFIED 11/16/2017 CHAR SHIRLEY FACC, ALI FACP CCDS Ot I12.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 11/16/2017 CHAR SHIRLEY FACC, ALI FACP CCDS Ot I25.10 ATHSCL HEART DISEASE OF [place] CORONARY 11/16/2017 CHAR SHIRLEY FACC, ALI FACP CCDS Ot I48.0 PAROXYSMAL ATRIAL FIBRILLATION 11/16/2017 CHAR SHIRLEY FACC, ALI FACP CCDS Ot I65.29 OCCLUSION AND STENOSIS OF UNSPECIFIED CA 11/16/2017 CHAR BURGERC, ALI FACP CCDS Ot N18.2 CHRONIC KIDNEY DISEASE, STAGE 2 (MILD) 11/16/2017 CHAR SHIRLEY FACC, ALI FACP CCDS Ot Z79.01 EQUIPMENT SCHEDULER (CURRENT) USE OF ANTICOAGULANT 11/16/2017 CHAR SHIRLEY FACC, ALI FACP CCDS Ot Z95.0 PRESENCE OF CARDIAC PACEMAKER 11/16/2017 CHAR BURGERC, ALI FACP CCDS Ot E66.8 OTHER OBESITY 11/16/2017 CHAR BURGERC, ALI FACP CCDS Ot E78.5 HYPERLIPIDEMIA, UNSPECIFIED 11/16/2017 CHAR SHIRLEY FACC, ALI FACP CCDS Ot I12.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 11/16/2017 CHAR BURGERC, ALI FACP CCDS Ot I25.10 ATHSCL HEART DISEASE OF [place] CORONARY 11/16/2017 CHAR BURGERC, ALI FACP CCDS Ot I48.0 PAROXYSMAL ATRIAL FIBRILLATION 11/16/2017 CHAR SHIRLEY FACC, ALI FACP CCDS Ot I65.29 OCCLUSION AND STENOSIS OF UNSPECIFIED CA 11/16/2017 CHAR BURGERC, ALI FACP CCDS Ot N18.2 CHRONIC KIDNEY DISEASE, STAGE 2 (MILD) 11/16/2017 CHAR SHIRLEY FACC, ALI FACP CCDS Ot Z79.01 SENIOR LIVING (CURRENT) USE OF ANTICOAGULANT 11/16/2017 CHAR SHIRLEY FACC, ALI FACP CCDS Ot Z95.0 PRESENCE OF CARDIAC PACEMAKER 11/25/2017 CHAR SHIRLEY FACC, ALI FACP CCDS Ot I12.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 11/25/2017 CHAR SHIRLEY FACC, ALI FACP CCDS Ot I48.0 PAROXYSMAL ATRIAL FIBRILLATION 11/25/2017 CHAR SHIRLEY FACC, ALI FACP CCDS Ot N18.2 CHRONIC KIDNEY DISEASE, STAGE 2 (MILD) 11/25/2017 CHAR BURGERC, ALI FACP CCDS Ot Z79.01 EQUIPMENT SCHEDULER (CURRENT) USE OF ANTICOAGULANT 11/25/2017 CHAR BURGERC, ALI FACP CCDS Ot I12.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 11/25/2017 CHAR BURGERC, ALI FACP CCDS Ot I48.0 PAROXYSMAL ATRIAL FIBRILLATION 11/25/2017 CHAR BURGERC, ALI FACP CCDS Ot N18.2 CHRONIC KIDNEY DISEASE, STAGE 2 (MILD) 11/25/2017 CHAR SHIRLEY FACC, ALI FACP CCDS Ot Z79.01 EQUIPMENT SCHEDULER (CURRENT) USE OF ANTICOAGULANT 12/03/2017 CHAR SHIRLEY FACC, ALI FACP CCDS Ot E66.8 OTHER OBESITY 12/03/2017 CHAR SHIRLEY FACC, ALI FACP CCDS Ot E78.5 HYPERLIPIDEMIA, UNSPECIFIED 12/03/2017 CHAR SHIRLEY FACC, ALI FACP CCDS Ot I12.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 12/03/2017 CHAR SHIRLEY FACC, ALI FACP CCDS Ot I25.10 ATHSCL HEART DISEASE OF [place] CORONARY 12/03/2017 CHAR SHIRLEY FACC, ALI FACP CCDS Ot I48.0 PAROXYSMAL ATRIAL FIBRILLATION 12/03/2017 CHAR SHIRLEY FACC, ALI FACP CCDS Ot I65.29 OCCLUSION AND STENOSIS OF UNSPECIFIED CA 12/03/2017 CHAR SHIRLEY FACC, ALI FACP CCDS Ot N18.2 CHRONIC KIDNEY DISEASE, STAGE 2 (MILD) 12/03/2017 CHAR SHIRLEY FACC, ALI FACP CCDS Ot Z79.01 SENIOR LIVING (CURRENT) USE OF ANTICOAGULANT 12/03/2017 CHAR BURGERC, ALI FACP CCDS Ot Z95.0 PRESENCE OF CARDIAC PACEMAKER 12/11/2017 CHAR BURGER, ALI FACP CCDS Ot I48.91 UNSPECIFIED ATRIAL FIBRILLATION 12/11/2017 CHAR BURGERC, ALI FACP CCDS Ot Z79.01 EQUIPMENT SCHEDULER (CURRENT) USE OF ANTICOAGULANT 12/13/2017 WILLIAMS CHAVEZ L BULK LOADER Ot E66.8 OTHER OBESITY 12/13/2017 BAIMA WILLIAMS L BULK LOADER Ot E78.5 HYPERLIPIDEMIA, UNSPECIFIED 12/13/2017 BAIMA, WILLIAMS L BULK LOADER Ot I12.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 12/13/2017 DORISMA WILLIAMS L BULK LOADER Ot I25.10 ATHSCL HEART DISEASE OF [place] CORONARY 12/13/2017 BAIMA WILLIAMS L BULK LOADER Ot I48.0 PAROXYSMAL ATRIAL FIBRILLATION 12/13/2017 BAIMA WILLIAMS L BULK LOADER Ot I48.91 UNSPECIFIED ATRIAL FIBRILLATION 12/13/2017 BAIMA, WILLIAMS L BULK LOADER Ot I65.29 OCCLUSION AND STENOSIS OF UNSPECIFIED CA 12/13/2017 WILLIAMS CHAVEZ BULK LOADER Ot N18.2 CHRONIC KIDNEY DISEASE, STAGE 2 (MILD) 12/13/2017 BAIMAWILLIAMS L BULK LOADER Ot Z79.01 SENIOR LIVING (CURRENT) USE OF ANTICOAGULANT 12/13/2017 BAIWILLIAMS CANO L BULK LOADER Ot Z95.0 PRESENCE OF CARDIAC PACEMAKER 12/14/2017 BAIWILLIAMS CANO L BULK LOADER Ot I48.91 UNSPECIFIED ATRIAL FIBRILLATION 12/14/2017 BAIMAWILLIAMS L BULK LOADER Ot Z79.01 SENIOR LIVING (CURRENT) USE OF ANTICOAGULANT 12/15/2017 BAIWILLIAMS CANO L BULK LOADER Ot I48.91 UNSPECIFIED ATRIAL FIBRILLATION 12/15/2017 BAIMAWILLIAMS L BULK LOADER Ot Z79.01 EQUIPMENT SCHEDULER (CURRENT) USE OF ANTICOAGULANT 12/18/2017 CHAR SHIRLEY FACC, ALI FACP CCDS Ot I12.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 12/18/2017 CHAR SHIRLEY FACC, ALI FACP CCDS Ot I48.0 PAROXYSMAL ATRIAL FIBRILLATION 12/18/2017 CHAR SHIRLEY FACC, ALI FACP CCDS Ot N18.2 CHRONIC KIDNEY DISEASE, STAGE 2 (MILD) 12/18/2017 CHAR SHIRLEY FACC, ALI FACP CCDS Ot Z79.01 SENIOR LIVING (CURRENT) USE OF ANTICOAGULANT 12/19/2017 DORISWILLIAMS CANO L BULK LOADER Ot I48.91 UNSPECIFIED ATRIAL FIBRILLATION 12/19/2017 BAIMA WILLIAMS L BULK LOADER Ot Z79.01 SENIOR LIVING (CURRENT) USE OF ANTICOAGULANT 12/30/2017 JAZIEL PRATER MD Ot Z29.8 ENCOUNTER FOR OTHER SPECIFIED PROPHYLACT 12/31/2017 CHAR SHIRLEY FACC, ALI FACP CCDS Ot I48.91 UNSPECIFIED ATRIAL FIBRILLATION 12/31/2017 CHAR SHIRLEY FACC, ALI FACP CCDS Ot Z79.01 SENIOR LIVING (CURRENT) USE OF ANTICOAGULANT 01/19/2018 DORISJEROME WILLIAMS L BULK LOADER Ot I48.91 UNSPECIFIED ATRIAL FIBRILLATION 01/19/2018 DORISJEROME WILLIAMS L BULK LOADER Ot Z51.81 ENCOUNTER FOR THERAPEUTIC DRUG LEVEL MON 01/19/2018 DORISMA WILLIAMS L BULK LOADER Ot Z79.01 SENIOR LIVING (CURRENT) USE OF ANTICOAGULANT 01/31/2018 JAZIEL PRATER MD R Ot Z29.8 ENCOUNTER FOR OTHER SPECIFIED PROPHYLACT 03/03/2018 MOI SHIRLEY JAZIEL R Ot Z29.8 ENCOUNTER FOR OTHER SPECIFIED PROPHYLACT 03/14/2018 DORISJEREMIAH CANOHER L BULK LOADER Ot I48.91 UNSPECIFIED ATRIAL FIBRILLATION 03/14/2018 DORISWILLIAMS CANO L BULK LOADER Ot Z51.81 ENCOUNTER FOR THERAPEUTIC DRUG LEVEL MON 03/14/2018 DORISWILLIAMS CANO L BULK LOADER Ot Z79.01 SENIOR LIVING (CURRENT) USE OF ANTICOAGULANT 03/16/2018 WILLIAMS CHAVEZ L BULK LOADER Ot I48.91 UNSPECIFIED ATRIAL FIBRILLATION 03/16/2018 DORISJEROME WILLIAMS L BULK LOADER Ot Z51.81 ENCOUNTER FOR THERAPEUTIC DRUG LEVEL MON 03/16/2018 SCOTT WILLIAMS L BULK LOADER Ot Z79.01 SENIOR LIVING (CURRENT) USE OF ANTICOAGULANT 04/04/2018 MOI SHIRLEY JAZIEL R Ot Z29.8 ENCOUNTER FOR OTHER SPECIFIED PROPHYLACT 05/05/2018 MOI SHIRLEY JAZIEL R Ot Z29.8 ENCOUNTER FOR OTHER SPECIFIED PROPHYLACT 05/06/2018 MOI SHIRLEY JAZIEL R Ot Z29.8 ENCOUNTER FOR OTHER SPECIFIED PROPHYLACT 05/20/2018 SCOTT WILLIAMS L BULK LOADER Ot I48.91 UNSPECIFIED ATRIAL FIBRILLATION 05/20/2018 SCOTT WILLIAMS L BULK LOADER Ot Z51.81 ENCOUNTER FOR THERAPEUTIC DRUG LEVEL MON 05/20/2018 SCOTT WILLIAMS L BULK LOADER Ot Z79.01 EQUIPMENT SCHEDULER (CURRENT) USE OF ANTICOAGULANT 05/27/2018 AGNIESZKA PARDO MD, FACC FACP CCDS Ot I10 ESSENTIAL (PRIMARY) HYPERTENSION 05/27/2018 AGNIESZKA PARDO MD, FACC FACP CCDS Ot I25.10 ATHSCL HEART DISEASE OF [place] CORONARY 05/27/2018 CHAR SHIRLEY FACC, AGNIESZKA FACP CCDS Ot I48.2 CHRONIC ATRIAL FIBRILLATION 05/27/2018 CHAR SHIRLEY FACC, AGNIESZKA FACP CCDS Ot 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 AN 05/27/2018 AGNIESZKA PARDO MD, FACC FACP CCDS Ot R06.02 SHORTNESS OF BREATH 05/27/2018 AGNIESZKA PARDO MD, FACC FACP CCDS Ot Z79.01 SENIOR LIVING (CURRENT) USE OF ANTICOAGULANT 06/09/2018 MOI SHIRLEY JAZIEL R Ot Z29.8 ENCOUNTER FOR OTHER SPECIFIED PROPHYLACT 06/10/2018 CHAR MD FACC, ALI FACP CCDS Ot 427.31 ATRIAL FIBRILLATION 06/10/2018 CHAR SHIRLEY FACC, ALI FACP CCDS Ot 729.81 SWELLING OF LIMB 06/10/2018 CHAR SHIRLEY FACC, ALI FACP CCDS Ot 786.09 RESPIRATORY ABNORM NEC 06/10/2018 CHAR SHIRLEY FACC, ALI FACP CCDS Ot V58.69 OTH MED,LT,CURRENT USE 06/10/2018 BAIMA, WILLIAMS L BULK LOADER Ot 790.6 ABN BLOOD CHEMISTRY NEC 06/10/2018 BAIMA, WILLIAMS L BULK LOADER Ot 790.6 ABN BLOOD CHEMISTRY NEC 06/10/2018 BAIMA, WILLIAMS L BULK LOADER Ot 428.0 CONGESTIVE HEART FAILURE NOS 06/10/2018 BAIMA, WILLIAMS L BULK LOADER Ot 428.0 CONGESTIVE HEART FAILURE NOS 06/10/2018 CHAR SHIRLEY FACC, ALI FACP CCDS Ot 414.00 CORON ATHEROSCLER NOS TYPE VESSEL, NATIV 06/10/2018 CHAR SHIRLEY FACC, ALI FACP CCDS Ot 429.3 CARDIOMEGALY 06/10/2018 CHAR SHIRLEY FACC, ALI FACP CCDS Ot 786.59 CHEST PAIN NEC 06/10/2018 CHAR SHIRLEY FACC, ALI FACP CCDS Ot 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 06/10/2018 BAIMA, WILLIAMS L BULK LOADER Ot 272.4 HYPERLIPIDEMIA NEC/NOS 06/10/2018 Ot 272.0 [...] V58.61 ANTICOAGULANTS,LT,CURRENT USE 06/10/2018 BAIMA, WILLIAMS L BULK LOADER Ot 272.4 HYPERLIPIDEMIA NEC/NOS 06/10/2018 BAIMA, WILLIAMS L BULK LOADER Ot 401.9 HYPERTENSION NOS 06/10/2018 WILLIAMS CHAVEZ BULK LOADER Ot 414.00 CORON ATHEROSCLER NOS TYPE VESSEL, NATIV 06/10/2018 WILLIAMS CHAVEZ L BULK LOADER Ot 427.31 ATRIAL FIBRILLATION 06/10/2018 WILLIAMS CHAVEZ L BULK LOADER Ot 272.4 HYPERLIPIDEMIA NEC/NOS 06/10/2018 DORISWILLIAMS CANO L BULK LOADER Ot 401.9 HYPERTENSION NOS 06/10/2018 DORISJEROME WILLIAMS L BULK LOADER Ot 414.9 CHR ISCHEMIC HRT DIS NOS 06/10/2018 DORISWILLIAMS CANO L BULK LOADER Ot 427.31 ATRIAL FIBRILLATION 06/10/2018 MOI SHIRLEY, JAZIEL R Ot 780.79 OTH MALAISE FATIGUE 06/10/2018 MOI SHIRLEY, JAZIEL R Ot 429.3 CARDIOMEGALY 06/10/2018 MOI SHIRLEY, JAZIEL R Ot 786.2 COUGH 06/10/2018 MOI SHIRLEY, JAZIEL R Ot 794.4 ABN KIDNEY FUNCT STUDY 06/10/2018 MOI SHIRLEY JAZIEL R Ot I48.91 UNSPECIFIED ATRIAL FIBRILLATION 06/10/2018 MOI SHIRLEY, JAZIEL R Ot Z51.81 ENCOUNTER FOR THERAPEUTIC DRUG LEVEL MON 06/10/2018 CHAR SHIRLEY FACC, ALI FACP CCDS Ot D69.6 THROMBOCYTOPENIA, UNSPECIFIED 06/10/2018 CHAR SHIRLEY FACC, ALI FACP CCDS Ot E78.0 PURE HYPERCHOLESTEROLEMIA 06/10/2018 CHAR SHIRLEY FACC, ALI FACP CCDS Ot I12.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 06/10/2018 CHAR SHIRLEY FACC, ALI FACP CCDS Ot I25.10 ATHSCL HEART DISEASE OF [place] CORONARY 06/10/2018 CHAR SHIRLEY FACC, ALI FACP [...] SHIRLEY FACC, ALI FACP CCDS Ot Z79.01 EQUIPMENT SCHEDULER (CURRENT) USE OF ANTICOAGULANT 06/10/2018 CHAR SHIRLEY [...] SHIRLEY FACC, ALI FACP CCDS Ot Z79.01 EQUIPMENT SCHEDULER (CURRENT) USE OF ANTICOAGULANT 06/10/2018 SLOAN NICE MD Ot D50.9 IRON DEFICIENCY ANEMIA, UNSPECIFIED 06/10/2018 SLOAN NICE MD Ot D69.6 THROMBOCYTOPENIA, UNSPECIFIED 06/10/2018 SLOAN NICE MD Ot E78.5 HYPERLIPIDEMIA, UNSPECIFIED 06/10/2018 SLOAN NICE MD Ot I12.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 06/10/2018 SLOAN NICE MD Ot I25.10 ATHSCL HEART DISEASE OF [place] CORONARY 06/10/2018 SLOAN NICE MD Ot I48.91 UNSPECIFIED ATRIAL FIBRILLATION 06/10/2018 SLOAN NICE MD Ot N18.9 CHRONIC KIDNEY DISEASE, UNSPECIFIED 06/10/2018 SLOAN NICE MD Ot Z79.01 SENIOR LIVING (CURRENT) USE OF ANTICOAGULANT 06/10/2018 SLOAN NICE MD Ot Z79.899 OTHER SENIOR LIVING (CURRENT) DRUG THERAPY 06/10/2018 CHAR SHIRLEY FACC, ALI FACP CCDS Ot E66.8 OTHER OBESITY 06/10/2018 CHAR SHIRLEY FACC, ALI FACP CCDS Ot E78.5 HYPERLIPIDEMIA, UNSPECIFIED 06/10/2018 CHAR SHIRLEY FACC, ALI FACP CCDS Ot I12.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 06/10/2018 CHAR SHIRLEY FACC, ALI FACP CCDS Ot I25.10 ATHSCL HEART DISEASE OF [place] CORONARY 06/10/2018 CHAR SHIRLEY FACC, ALI FACP CCDS Ot I48.0 PAROXYSMAL ATRIAL FIBRILLATION 06/10/2018 CHAR SHIRLEY FACC, ALI FACP CCDS Ot I65.29 OCCLUSION AND STENOSIS OF UNSPECIFIED CA 06/10/2018 CHAR SHIRLEY FACC, ALI FACP CCDS Ot N18.2 CHRONIC KIDNEY DISEASE, STAGE 2 (MILD) 06/10/2018 CHAR SHIRLEY FACC, ALI FACP CCDS Ot Z79.01 EQUIPMENT SCHEDULER (CURRENT) USE OF ANTICOAGULANT 06/10/2018 CHAR SHIRLEY [...] SHIRLEY FACC, ALI FACP CCDS Ot Z79.01 SENIOR LIVING (CURRENT) USE OF ANTICOAGULANT 06/10/2018 WILLIAMS CHAVEZ BULK LOADER Ot I48.91 UNSPECIFIED ATRIAL FIBRILLATION 06/10/2018 WILLIAMS CHAVEZ BULK LOADER Ot Z51.81 ENCOUNTER FOR THERAPEUTIC DRUG LEVEL MON 06/10/2018 WILLIAMS CHAVEZ BULK LOADER Ot Z79.01 EQUIPMENT SCHEDULER (CURRENT) USE OF ANTICOAGULANT 06/10/2018 CHAR SHIRLEY FACC, ALI FACP CCDS Ot I10 ESSENTIAL (PRIMARY) HYPERTENSION 06/10/2018 CHAR SHIRLEY FACC, ALI FACP CCDS Ot I25.10 ATHSCL HEART DISEASE OF [place] CORONARY 06/10/2018 CHAR SHIRLEY FACC, ALI FACP CCDS Ot I48.2 CHRONIC ATRIAL FIBRILLATION 06/10/2018 CHAR SHIRLEY FACC, ALI FACP CCDS Ot 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 AN 06/10/2018 CHAR SHIRLEY FACC, ALI FACP CCDS Ot R06.02 SHORTNESS OF BREATH 06/10/2018 CHAR SHIRLEY FACC, ALI FACP CCDS Ot Z79.01 EQUIPMENT SCHEDULER (CURRENT) USE OF ANTICOAGULANT 06/14/2018 JEREMIAH CHAVEZHER L BULK LOADER Ot I48.91 UNSPECIFIED ATRIAL FIBRILLATION 06/14/2018 WILLIAMS CHAVEZ BULK LOADER Ot Z51.81 ENCOUNTER FOR THERAPEUTIC DRUG LEVEL MON 06/14/2018 WILLIAMS CHAVEZ BULK LOADER Ot Z79.01 EQUIPMENT SCHEDULER (CURRENT) USE OF ANTICOAGULANT 06/14/2018 CHAR SHIRLEY FACC, ALI FACP CCDS Ot E87.5 HYPERKALEMIA 06/14/2018 CHAR SHIRLEY FACC, ALI FACP CCDS Ot I08.3 COMB RHEUMATIC DISORD OF MITRAL, AORTIC 06/14/2018 CHAR SHIRLEY FACC, ALI FACP CCDS Ot I10 ESSENTIAL (PRIMARY) HYPERTENSION 06/14/2018 CHAR SHIRLEY FACC, ALI FACP CCDS Ot I25.10 ATHSCL HEART DISEASE OF [place] CORONARY 06/14/2018 CHAR SHIRLEY FACC, ALI FACP CCDS Ot I48.2 CHRONIC ATRIAL FIBRILLATION 06/14/2018 CHAR SHIRLEY FACC, ALI FACP CCDS Ot R06.02 SHORTNESS OF BREATH 06/14/2018 CHAR SHIRLEY FACC, ALI FACP CCDS Ot Z79.01 SENIOR LIVING (CURRENT) USE OF ANTICOAGULANT 06/15/2018 CHAR SHIRLEY FACC, ALI FACP CCDS Ot I10 ESSENTIAL (PRIMARY) HYPERTENSION 06/15/2018 CHAR SHIRLEY FACC, ALI FACP CCDS Ot I25.10 ATHSCL HEART DISEASE OF [place] CORONARY 06/15/2018 CHAR SHIRLEY FACC, ALI FACP CCDS Ot I48.2 CHRONIC ATRIAL FIBRILLATION 06/15/2018 CHAR SHIRLEY FACC, ALI FACP CCDS Ot 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 AN 06/15/2018 CHAR SHIRLEY FACC, ALI FACP CCDS Ot R06.02 SHORTNESS OF BREATH 06/15/2018 CHAR SHIRLEY FACC, ALI FACP CCDS Ot Z79.01 SENIOR LIVING (CURRENT) USE OF ANTICOAGULANT 06/15/2018 HUMA SHELDON MD Ot F41.9 ANXIETY DISORDER, UNSPECIFIED 06/15/2018 HUMA SHELDON MD Ot I25.2 OLD MYOCARDIAL INFARCTION 06/15/2018 HUMA SHELDON MD Ot M25.561 PAIN IN RIGHT KNEE 06/15/2018 HUMA SHELDON MD Ot R40.2142 COMA SCALE, EYES OPEN, SPONTANEOUS, EMR 06/15/2018 HUMA SHELDON MD, Ot R40.2252 COMA SCALE, BEST VERBAL RESPONSE, ORIENT 06/15/2018 HUMA SHELDON MD, Ot R40.2362 COMA SCALE, BEST MOTOR RESPONSE, OBEYS C 06/15/2018 HUMA SHELDON MD, Ot S63.502A UNSPECIFIED SPRAIN OF LEFT WRIST, INITIA 06/15/2018 HUMA SHELDON MD Ot S80.01XA CONTUSION OF RIGHT KNEE, INITIAL ENCOUNT 06/15/2018 HUMA SHELDON MD, Ot W10.8XXA FALL (ON) (FROM) OTHER STAIRS AND STEPS, 06/15/2018 HUMA SHELDON MD, Ot Y92.[address] [facility] 06/15/2018 HUMA SHELDON MD, Ot Z23 ENCOUNTER FOR IMMUNIZATION 06/15/2018 HUMA SHELDON MD Ot Z79.01 SENIOR LIVING (CURRENT) USE OF ANTICOAGULANT 06/15/2018 HUMA SHELDON MD, Ot Z79.82 EQUIPMENT SCHEDULER (CURRENT) USE OF ASPIRIN 06/15/2018 HUMA SHELDON MD, Ot Z87.442 PERSONAL HISTORY OF URINARY CALCULI 06/15/2018 HUMA SHELDON MD, Ot Z87.891 PERSONAL HISTORY OF NICOTINE DEPENDENCE 06/15/2018 HUMA SHELDON MD Ot Z95.1 PRESENCE OF AORTOCORONARY BYPASS GRAFT 06/17/2018 HUMA SHELDON MD Ot F41.9 ANXIETY DISORDER, UNSPECIFIED 06/17/2018 HUMA SHELDON MD, Ot I25.2 OLD MYOCARDIAL INFARCTION 06/17/2018 HUMA SHELDON MD Ot M25.561 PAIN IN RIGHT KNEE 06/17/2018 HUMA SHELDON MD, Ot R40.2142 COMA SCALE, EYES OPEN, SPONTANEOUS, EMR 06/17/2018 HUMA SHELDON MD, Ot R40.2252 COMA SCALE, BEST VERBAL RESPONSE, ORIENT 06/17/2018 HUMA SHELDON MD, Ot R40.2362 COMA SCALE, BEST MOTOR RESPONSE, OBEYS C 06/17/2018 HUMA SHELDON MD, Ot S63.502A UNSPECIFIED SPRAIN OF LEFT WRIST, INITIA 06/17/2018 HUMA SHELDON MD, Ot S80.01XA CONTUSION OF RIGHT KNEE, INITIAL ENCOUNT 06/17/2018 HUMA SHELDON MD, Ot W10.8XXA FALL (ON) (FROM) OTHER STAIRS AND STEPS, 06/17/2018 HUMA SHELDON MD, Ot Y92.[address] [facility] [address] IN [facility] (PRIVATE 06/17/2018 HUMA SHELDON MD, Ot Z23 ENCOUNTER FOR IMMUNIZATION 06/17/2018 HUMA SHELDON MD, Ot Z79.01 SENIOR LIVING (CURRENT) USE OF ANTICOAGULANT 06/17/2018 HUMA SHELDON MD, Ot Z79.82 SENIOR LIVING (CURRENT) USE OF ASPIRIN 06/17/2018 HUMA SHELDON MD, Ot Z87.442 PERSONAL HISTORY OF URINARY CALCULI 06/17/2018 HUMA SHELDON MD, Ot Z87.891 PERSONAL HISTORY OF NICOTINE DEPENDENCE 06/17/2018 HUMA SHELDON MD, Ot Z95.1 PRESENCE OF AORTOCORONARY BYPASS GRAFT 06/21/2018 HUMA SHELDON MD, Ot F41.9 ANXIETY DISORDER, UNSPECIFIED 06/21/2018 HUMA SHELDON MD, Ot I25.2 OLD MYOCARDIAL INFARCTION 06/21/2018 HUMA SHELDON MD, Ot M25.561 PAIN IN RIGHT KNEE 06/21/2018 HUMA SHELDON MD, Ot R40.2142 COMA SCALE, EYES OPEN, SPONTANEOUS, EMR 06/21/2018 HUMA SHELDON MD, Ot R40.2252 COMA SCALE, BEST VERBAL RESPONSE, ORIENT 06/21/2018 HUMA SHELDON MD, Ot R40.2362 COMA SCALE, BEST MOTOR RESPONSE, OBEYS C 06/21/2018 HUMA SHELDON MD, Ot S63.502A UNSPECIFIED SPRAIN OF LEFT WRIST, INITIA 06/21/2018 HUMA SHELDON MD, Ot S80.01XA CONTUSION OF RIGHT KNEE, INITIAL ENCOUNT 06/21/2018 HUMA SHELDON MD, Ot W10.8XXA FALL (ON) (FROM) OTHER STAIRS AND STEPS, 06/21/2018 HUMA SHELDON MD, Ot Y92.[address] [facility] [address] IN [facility] (PRIVATE 06/21/2018 HUMA SHELDON MD Ot Z23 ENCOUNTER FOR IMMUNIZATION 06/21/2018 HUMA SHELDON MD Ot Z79.01 EQUIPMENT SCHEDULER (CURRENT) USE OF ANTICOAGULANT 06/21/2018 HUMA SHELDON MD Ot Z79.82 EQUIPMENT SCHEDULER (CURRENT) USE OF ASPIRIN 06/21/2018 HUMA SHELDON MD, Ot Z87.442 PERSONAL HISTORY OF URINARY CALCULI 06/21/2018 HUMA SHELDON MD, Ot Z87.891 PERSONAL HISTORY OF NICOTINE DEPENDENCE 06/21/2018 HUMA SHELDON MD, Ot Z95.1 PRESENCE OF AORTOCORONARY BYPASS GRAFT 06/30/2018 CHAR SHIRLEY FACC, ALI FACP CCDS Ot E87.5 HYPERKALEMIA 06/30/2018 CHAR SHIRLEY FACC, ALI FACP CCDS Ot I08.3 COMB RHEUMATIC DISORD OF MITRAL, AORTIC 06/30/2018 CHAR SHIRLEY FACC, ALI FACP CCDS Ot I10 ESSENTIAL (PRIMARY) HYPERTENSION 06/30/2018 CHAR SHIRLEY FACC, ALI FACP CCDS Ot I25.10 ATHSCL HEART DISEASE OF [place] CORONARY 06/30/2018 CHAR SHIRLEY FACC, ALI FACP CCDS Ot I48.2 CHRONIC ATRIAL FIBRILLATION 06/30/2018 CHAR SHIRLEY FACC, ALI FACP CCDS Ot R06.02 SHORTNESS OF BREATH 06/30/2018 CHAR SHIRLEY FACC, ALI FACP CCDS Ot Z79.01 SENIOR LIVING (CURRENT) USE OF ANTICOAGULANT 07/12/2018 JAZIEL PRATER MD R Ot Z29.8 ENCOUNTER FOR OTHER SPECIFIED PROPHYLACT 08/12/2018 JAZIEL PRATER MD Ot Z29.8 ENCOUNTER FOR OTHER SPECIFIED PROPHYLACT 08/27/2018 SLOAN NICE MD Ot D50.9 IRON DEFICIENCY ANEMIA, UNSPECIFIED 08/27/2018 SLOAN NICE MD Ot D69.6 THROMBOCYTOPENIA, UNSPECIFIED 08/27/2018 SLOAN NICE MD Ot E78.5 HYPERLIPIDEMIA, UNSPECIFIED 08/27/2018 SLOAN NICE MD Ot I12.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 08/27/2018 SLOAN NICE MD Ot I25.10 ATHSCL HEART DISEASE OF [place] CORONARY 08/27/2018 SLOAN NICE MD Ot I48.91 UNSPECIFIED ATRIAL FIBRILLATION 08/27/2018 SLOAN NICE MD Ot N18.9 CHRONIC KIDNEY DISEASE, UNSPECIFIED 08/27/2018 SLOAN NICE MD Ot Z79.01 EQUIPMENT SCHEDULER (CURRENT) USE OF ANTICOAGULANT 08/27/2018 SLOAN NICE MD Ot Z79.899 OTHER EQUIPMENT SCHEDULER (CURRENT) DRUG THERAPY 08/27/2018 ML GANNON APRN Ot R50.9 FEVER, UNSPECIFIED 09/12/2018 MOI SHIRLEY, JAZIEL R Ot Z29.8 ENCOUNTER FOR OTHER SPECIFIED PROPHYLACT 09/13/2018 MOI SHIRLEY, JAZIEL R Ot Z29.8 ENCOUNTER FOR OTHER SPECIFIED PROPHYLACT 09/17/2018 BAIMAJEREMIAHWILLIAMS L BULK LOADER Ot I48.91 UNSPECIFIED ATRIAL FIBRILLATION 09/17/2018 BAIMAWILLIAMS L BULK LOADER Ot Z51.81 ENCOUNTER FOR THERAPEUTIC DRUG LEVEL MON 09/17/2018 BAIMAWILLIAMS L BULK LOADER Ot Z79.01 EQUIPMENT SCHEDULER (CURRENT) USE OF ANTICOAGULANT 09/17/2018 BAIMAWILLIAMS L BULK LOADER Ot I48.91 UNSPECIFIED ATRIAL FIBRILLATION 09/17/2018 BAIMA WILLIAMS L BULK LOADER Ot Z51.81 ENCOUNTER FOR THERAPEUTIC DRUG LEVEL MON 09/17/2018 BAIMA WILLIAMS L BULK LOADER Ot Z79.01 EQUIPMENT SCHEDULER (CURRENT) USE OF ANTICOAGULANT 09/22/2018 MICHELLE TOBAR PROFESSOR OF FAMILY MEDICINE Ot G47.33 OBSTRUCTIVE SLEEP APNEA (ADULT) (PEDIATR 09/28/2018 BAIWILLIAMS CANO BULK LOADER Ot I12.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 09/28/2018 WILLIAMS CHAVEZ L BULK LOADER Ot N18.9 CHRONIC KIDNEY DISEASE, UNSPECIFIED 09/29/2018 MICHELLE TOBAR PROFESSOR OF FAMILY MEDICINE Ot G47.33 OBSTRUCTIVE SLEEP APNEA (ADULT) (PEDIATR 09/29/2018 MICHELLE TOBAR PROFESSOR OF FAMILY MEDICINE Ot G47.33 OBSTRUCTIVE SLEEP APNEA (ADULT) (PEDIATR 09/30/2018 MICHELLE TOBAR PROFESSOR OF FAMILY MEDICINE Ot G47.33 OBSTRUCTIVE SLEEP APNEA (ADULT) (PEDIATR 09/30/2018 MICHELLE TOBAR PROFESSOR OF FAMILY MEDICINE Ot G47.33 OBSTRUCTIVE SLEEP APNEA (ADULT) (PEDIATR 10/05/2018 ML GANNON PROFESSOR OF FAMILY MEDICINE Ot R50.9 FEVER, UNSPECIFIED 10/06/2018 LM GANNON PROFESSOR OF FAMILY MEDICINE Ot R50.9 FEVER, UNSPECIFIED 10/07/2018 SLOAN NICE MD Ot D50.9 IRON DEFICIENCY ANEMIA, UNSPECIFIED 10/07/2018 SLOAN NICE MD Ot D69.6 THROMBOCYTOPENIA, UNSPECIFIED 10/07/2018 SLOAN NICE MD Ot E78.5 HYPERLIPIDEMIA, UNSPECIFIED 10/07/2018 SLOAN NICE MD Ot I12.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 10/07/2018 SLOAN NICE MD Ot I25.10 ATHSCL HEART DISEASE OF [place] CORONARY 10/07/2018 SLOAN NICE MD Ot I48.91 UNSPECIFIED ATRIAL FIBRILLATION 10/07/2018 SLOAN NICE MD Ot N18.9 CHRONIC KIDNEY DISEASE, UNSPECIFIED 10/07/2018 SLOAN NICE MD Ot Z79.01 EQUIPMENT SCHEDULER (CURRENT) USE OF ANTICOAGULANT 10/07/2018 SLOAN NICE MD Ot Z79.899 OTHER EQUIPMENT SCHEDULER (CURRENT) DRUG THERAPY 10/07/2018 WILLIAMS CHAVEZ BULK LOADER Ot I48.91 UNSPECIFIED ATRIAL FIBRILLATION 10/07/2018 WILLIAMS CHAVEZ BULK LOADER Ot Z51.81 ENCOUNTER FOR THERAPEUTIC DRUG LEVEL MON 10/07/2018 WILLIAMS CHAVEZ BULK LOADER Ot Z79.01 SENIOR LIVING (CURRENT) USE OF ANTICOAGULANT 10/08/2018 SLOAN NICE MD Ot D50.9 IRON DEFICIENCY ANEMIA, UNSPECIFIED 10/08/2018 SLOAN NICE MD Ot D69.6 THROMBOCYTOPENIA, UNSPECIFIED 10/08/2018 SLOAN NICE MD Ot E78.5 HYPERLIPIDEMIA, UNSPECIFIED 10/08/2018 SLOAN NICE MD Ot I12.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 10/08/2018 SLOAN NICE MD Ot I25.10 ATHSCL HEART DISEASE OF [place] CORONARY 10/08/2018 SLOAN NICE MD Ot I48.91 UNSPECIFIED ATRIAL FIBRILLATION 10/08/2018 SLOAN NICE MD Ot N18.9 CHRONIC KIDNEY DISEASE, UNSPECIFIED 10/08/2018 SLOAN NICE MD Ot Z79.01 EQUIPMENT SCHEDULER (CURRENT) USE OF ANTICOAGULANT 10/08/2018 SLOAN NICE MD Ot Z79.899 OTHER SENIOR LIVING (CURRENT) DRUG THERAPY 10/13/2018 MOI SHIRLEY, JAZIEL R Ot Z29.8 ENCOUNTER FOR OTHER SPECIFIED PROPHYLACT 10/20/2018 WILLIAMS CHAVEZ L BULK LOADER Ot I12.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 10/20/2018 DORISWILLIAMS CANO Anuj BULK LOADER Ot N18.9 CHRONIC KIDNEY DISEASE, UNSPECIFIED 10/22/2018 WILLIAMS CHAVEZ L BULK LOADER Ot I48.91 UNSPECIFIED ATRIAL FIBRILLATION 10/22/2018 WILLIAMS CHAVEZ L BULK LOADER Ot Z51.81 ENCOUNTER FOR THERAPEUTIC DRUG LEVEL MON 10/22/2018 WILLIAMS CHAVEZ BULK LOADER Ot Z79.01 SENIOR LIVING (CURRENT) USE OF ANTICOAGULANT 10/27/2018 WILLIAMS CHAVEZ L BULK LOADER Ot I48.91 UNSPECIFIED ATRIAL FIBRILLATION 10/27/2018 WILLIAMS CHAVEZ L BULK LOADER Ot Z51.81 ENCOUNTER FOR THERAPEUTIC DRUG LEVEL MON 10/27/2018 WILLIAMS CHAVEZ BULK LOADER Ot Z79.01 SENIOR LIVING (CURRENT) USE OF ANTICOAGULANT 11/17/2018 MOI SHIRLEY JAZIEL R Ot Z29.8 ENCOUNTER FOR OTHER SPECIFIED PROPHYLACT 11/18/2018 JAZIEL PRATER MD R Ot Z29.8 ENCOUNTER FOR OTHER SPECIFIED PROPHYLACT 12/16/2018 WILLIAMS CHAVEZ BULK LOADER Ot I48.91 UNSPECIFIED ATRIAL FIBRILLATION 12/16/2018 WILLIAMS CHAVEZ L BULK LOADER Ot Z51.81 ENCOUNTER FOR THERAPEUTIC DRUG LEVEL MON 12/16/2018 WILLIAMS CHAVEZ BULK LOADER Ot Z79.01 EQUIPMENT SCHEDULER (CURRENT) USE OF ANTICOAGULANT 12/17/2018 WILLIAMS CHAVEZ BULK LOADER Ot I48.91 UNSPECIFIED ATRIAL FIBRILLATION 12/17/2018 WILLIAMS CHAVEZ BULK LOADER Ot Z51.81 ENCOUNTER FOR THERAPEUTIC DRUG LEVEL MON 12/17/2018 WILLIAMS CHAVEZ BULK LOADER Ot Z79.01 SENIOR LIVING (CURRENT) USE OF ANTICOAGULANT 12/19/2018 MOI SHIRLEY JAZIEL R Ot Z29.8 ENCOUNTER FOR OTHER SPECIFIED PROPHYLACT 12/21/2018 JAZIEL PRATER MD R Ot Z29.8 ENCOUNTER FOR OTHER SPECIFIED PROPHYLACT 01/07/2019 WILLIAMS CHAVEZ L BULK LOADER Ot I48.91 UNSPECIFIED ATRIAL FIBRILLATION 01/07/2019 WILLIAMS CHAVEZ L BULK LOADER Ot Z51.81 ENCOUNTER FOR THERAPEUTIC DRUG LEVEL MON 01/07/2019 WILLIAMS CHAVEZ L BULK LOADER Ot Z79.01 EQUIPMENT SCHEDULER (CURRENT) USE OF ANTICOAGULANT Procedures Code Description [...] VLDL measurement (mass/volume) 17 mg/ dL 5-40 PT panel in platelet poor plasma by coagulation assay - 06/15/18 19:33 Prothrombin time (PT) in platelet poor plasma by coagulation assay 23.1 s 12.2-14.7 INR in platelet poor plasma or blood by coagulation assay 2.0 0.8-1.4 Activated partial thromboplastin time (aPTT) in platelet poor plasma bycoagulation assay - 06/15/18 19:33 Activated partial thromboplastin time (aPTT) in platelet poor plasma bycoagulation assay 40 s 24-35 Complete blood count (CBC) with automated white blood cell (WBC) differential - 07/07/18 16:36 Blood leukocytes automated count (number/volume) 5.7 10*3/uL 4.3-11.0 Blood erythrocytes automated count (number/volume) 4.14 10*6/uL 4.35-5.85 Venous blood hemoglobin measurement (mass/volume) 13.4 g/dL 13.3-17.7 Blood hematocrit (volume fraction) 40 % 40-54 Automated erythrocyte mean corpuscular volume 97 [foz_us] 80-99 Automated erythrocyte mean corpuscular hemoglobin (mass per erythrocyte) 32 pg 25-34 Automated erythrocyte mean corpuscular hemoglobin concentration measurement ( mass/volume) 33 g/dL 32-36 Automated erythrocyte distribution width ratio 13.6 % 10.0-14.5 Automated blood platelet count (count/volume) 126 10*3/uL 130-400 Automated blood platelet mean volume measurement 11.9 [foz_us] 7.4-10.4 Automated blood neutrophils/100 leukocytes 53 % 42-75 Automated blood lymphocytes/100 leukocytes 24 % 12-44 Blood monocytes/100 leukocytes 21 % 0-12 Automated blood eosinophils/100 leukocytes 3 % 0-10 Automated blood basophils/100 leukocytes 0 % 0-10 Blood neutrophils automated count (number/volume) 3.0 10*3 1.8-7.8 Blood lymphocytes automated count (number/volume) 1.3 10*3 1.0-4.0 Blood monocytes automated count (number/volume) 1.2 10*3 0.0-1.0 Automated eosinophil count 0.2 10*3/uL 0.0-0.3 Automated blood basophil count (count/volume) 0.0 10*3/uL 0.0-0.1 Blood manual differential performed detection - 07/07/18 16:36 Blood monocytes/100 leukocytes 14 % NRG Manual blood segmented neutrophils/100 leukocytes 42 % NRG Blood band neutrophils/100 leukocytes 4 % NRG Manual blood lymphocytes/100 leukocytes 34 % NRG Manual eosinophils/100 leukocytes in nose 5 % NRG Manual blood basophils/100 leukocytes 1 % NRG Blood erythrocyte morphology finding identification NORMAL NRG Encounters ACCT No. Visit Date/Time Discharge Status Pt. Type Provider Facility Loc./Unit Complaint [id number] 06/08/2013 11:15:00 06/08/2013 23:59:59 CLS Outpatient SEB BUSTILLO DO [id number] 01/05/2019 10:08:00 01/05/2019 23:59:59 CLS Outpatient JAZIEL PRATER MD [address] [place] [address] CARDIAC REHAB PHASE 3 [id number] 01/03/2019 09:40:00 01/03/2019 23:59:59 CLS Outpatient WILLIAMS CHAVEZ [facility] LAB Z79.01,I48.0 [id number] 12/13/2018 11:30:00 12/19/2018 00:01:00 DIS Outpatient JAZIEL PRATER MD [address] [place] [address] CARDIAC REHAB PHASE 3 [id number] 11/22/2018 09:33:00 12/16/2018 00:01:00 DIS Outpatient WILLIAMS CHAVEZ [facility] LAB Z79.01,I48.0 [id number] 11/17/2018 10:21:00 11/17/2018 00:01:00 DIS Outpatient JAZIEL PRATER MD [address] [place] [address] CARDIAC REHAB PHASE 3 [id number] 10/13/2018 10:23:00 10/13/2018 00:01:00 DIS Outpatient JAZIEL PRATER MD [address] [place] [address] CARDIAC REHAB PHASE 3 [id number] 10/08/2018 00:11:00 10/08/2018 23:59:59 CLS Preadmit SLOAN NICE MD [facility] ONC [id number] 07/09/2018 13:01:00 10/07/2018 00:01:00 DIS Outpatient SLOAN NICE MD [facility] ONC [id number] 10/06/2018 00:12:00 10/06/2018 23:59:59 CLS Preadmit ML GANNON APRN [facility] LAB FEVER OF UNKNOWN ORIGIN [id number] 07/07/2018 16:13:00 10/05/2018 00:01:00 DIS Outpatient ML GANNON APRN [facility] LAB FEVER OF UNKNOWN ORIGIN [id number] 09/29/2018 19:39:00 09/30/2018 06:40:00 DIS Outpatient MICHELLE TOBAR APRN [facility] SLEEP ANTONINO G47.33 [id number] 09/27/2018 11:17:00 09/27/2018 23:59:59 CLS Outpatient WILLIAMS CHAVEZ [facility] LAB CKD [id number] 09/10/2018 10:46:00 09/12/2018 00:01:00 DIS Outpatient JAZIEL PRATER MD [address] [place] [address] CARDIAC REHAB PHASE 3 [id number] 08/06/2018 11:44:00 08/11/2018 00:01:00 DIS Outpatient JAZIEL PRATER MD [address] [place] [address] CARDIAC REHAB PHASE 3 [id number] 06/28/2018 10:09:00 07/11/2018 00:01:00 DIS Outpatient JAZIEL PRATER MD [facility] CARDIAC REHAB PHASE 3 [id number] 06/15/2018 18:28:00 06/15/2018 21:15:00 DIS Emergency PITO SHIRLEY, HUMA Escalante [facility] ER FELL AT HOME, LEFT HAND,RT KNEE [id number] 06/10/2018 09:26:00 06/14/2018 00:01:00 DIS Outpatient WILLIAMS CHAVEZ [facility] LAB Z79.01,I48.0 [id number] 06/10/2018 08:41:00 06/10/2018 23:59:59 CLS Outpatient AGNIESZKA PARDO MD, FACC, FACP CCDS [facility] CARD SOB,CHRONIC ATRIAL FIBRILLATION,HYPERTENSION [id number] 06/09/2018 10:12:00 06/09/2018 00:01:00 DIS Outpatient JAZIEL PRATER MD [facility] CARDIAC REHAB PHASE 3 [id number] 05/25/2018 07:24:00 05/25/2018 23:59:59 CLS Outpatient AGNIESZKA PARDO MD, FACC, FACP CCDS [facility] CARD SOB,CHRONIC ATRIAL FIBRILLATION,HYPERTENSION [id number] 05/05/2018 16:40:00 05/05/2018 00:01:00 DIS Outpatient MOI SHIRLEY, JAZIEL R [address] [place] [address] CARDIAC REHAB PHASE 3 [id number] 03/29/2018 13:45:00 03/29/2018 23:59:59 CLS Outpatient MOI SHIRLEY, JAZIEL R [address] [place] [address] CARDIAC REHAB PHASE 3 [id number] 02/12/2018 11:07:00 03/14/2018 00:01:00 DIS Outpatient WILLIAMS CHAVEZ [facility] LAB Z79.01,I48.0 [id number] 03/01/2018 10:00:00 03/03/2018 00:01:00 DIS Outpatient MOI SHIRLEY, JAZIEL R [address] [place] [address] CARDIAC REHAB PHASE 3 [id number] 01/29/2018 17:38:00 01/31/2018 00:01:00 DIS Outpatient MOI SHIRLEY, JAZIEL R [address] [place] [address] CARDIAC REHAB PHASE 3 [id number] 12/28/2017 11:46:00 12/30/2017 00:01:00 DIS Outpatient OMI SHIRLEY, JAZIEL R [address] [place] [address] CARDIAC REHAB PHASE 3 [id number] 11/13/2017 12:34:00 12/13/2017 00:01:00 DIS Outpatient WILLIAMS CHAVEZ [facility] LAB [id number] 11/24/2017 14:15:00 11/24/2017 23:59:59 CLS Outpatient CHAR SHIRLEY FACC, ALI FACP CCDS [facility] LAB I10,N18.2 [id number] 11/13/2017 12:24:00 11/13/2017 23:59:59 CLS Outpatient CHAR SIHRLEY FACC, ALI FACP CCDS [facility] LAB I65.23, [id number] 07/15/2017 11:44:00 09/16/2017 00:01:00 DIS Outpatient SLOAN NICE MD [facility] ONC [id number] 08/14/2017 12:26:00 09/13/2017 00:01:00 DIS Outpatient DORISWILLIAMS CANO Anuj AUSTIN [facility] LAB [id number] 05/18/2017 08:27:00 05/30/2017 00:01:00 DIS Outpatient DORISWILLIAMS CANO Anuj AUSTIN [facility] LAB [id number] 05/18/2017 08:52:00 05/18/2017 23:59:59 CLS Outpatient CHAR SHIRLEY FACC, ALI FACP CCDS [facility] LAB I65.23,Z79.01, N18.2,E78.4,I10,I48.0,I49.5 [id number] 02/12/2017 10:43:00 03/10/2017 00:01:00 DIS Outpatient ROGELIO CORTES MD [facility] LAB [id number] 01/14/2017 00:11:00 01/14/2017 23:59:59 CLS Preadmit CHAR SHIRLEY FACC, ALI FACP CCDS [facility] LAB A-FIB,[place] [id number] 12/12/2016 13:35:00 01/13/2017 00:01:00 DIS Outpatient CHAR SHIRLEY FACC, ALI FACP CCDS [facility] LAB A-FIB, [place] [id number] 06/12/2016 08:55:00 09/10/2016 00:01:00 DIS Outpatient ROGELIO CORTES MD [facility] ONC [id number] 07/15/2016 09:37:00 08/05/2016 00:01:00 DIS Outpatient CHAR SHIRLEY FACJanay, ALI FACP CCDS [facility] LAB A-FIB, [place] [id number] 04/03/2016 11:09:00 04/29/2016 00:01:00 DIS Outpatient CHAR SHIRLEY FACC, ALI FACP CCDS [facility] LAB A-FIB, [place] [id number] 12/17/2015 12:11:00 01/28/2016 00:01:00 DIS Outpatient CHAR SHIRLEY FACC, ALI FACP CCDS [facility] LAB A-FIB, [place] [id number] 01/04/2016 09:32:00 01/04/2016 23:59:59 CLS Outpatient CHAR SHIRLEY FACJanay, ALI FACP CCDS [facility] CARD AFIB [id number] 01/04/2016 10:47:00 01/04/2016 13:20:00 DIS Emergency HUMA SHELDON MD [facility] ER LEFT LEG PAIN/ SWELLING [id number] 11/02/2015 14:34:00 11/02/2015 23:59:59 CLS Outpatient JAZIEL PRATER MD [facility] LAB UNSPECIFIED ARTRIAL FEBRILLATION [id number] 10/31/2015 13:43:00 11/01/2015 14:40:00 DIS Inpatient JAZIEL PRATER MD [facility] CSD ATYPICAL CHEST PAIN CHRONIC RENAL INSUFFICIENCY [id number] 10/01/2015 12:33:00 10/10/2015 00:01:00 DIS Outpatient CHAR SHIRLEY FACC, ALI FACP CCDS [facility] LAB A-FIB, [place] [id number] 06/14/2015 10:21:00 09/12/2015 00:01:00 DIS Outpatient ROGELIO CORTES MD [facility] ONC [id number] 05/28/2015 12:12:00 05/30/2015 00:01:00 DIS Outpatient CHAR SHIRLEY FACC, ALI FACP CCDS [facility] LAB A-FIB, [place] [id number] 04/12/2015 11:37:00 05/06/2015 00:01:00 DIS Outpatient CHAR SHIRLEY FACC, ALI FACP CCDS [facility] LAB A-FIB, [place] [id number] 04/23/2015 11:31:00 04/23/2015 23:59:59 CLS Outpatient JAZIEL PRATER MD [facility] LAB BUN/CREAT [id number] 03/30/2015 10:59:00 03/30/2015 23:59:59 CLS Outpatient JAZIEL PRATER MD [facility] RAD PERSISTENT COUGH [id number] 03/05/2015 15:34:00 03/05/2015 23:59:59 CLS Outpatient JAZIEL PRATER MD [facility] LAB MALAISE [id number] 11/14/2014 13:17:00 02/12/2015 00:01:00 DIS Outpatient ROGELIO CORTES MD [facility] ONC [id number] 01/19/2015 14:04:00 02/01/2015 00:01:00 DIS Outpatient CHAR SHIRLEY FACJanay, AGNIESZKA FRIEND CCDS [facility] LAB A-FIB, COUMADIN [place] [id number] 12/19/2014 08:49:00 12/19/2014 23:59:59 CLS Outpatient WILLIAMS CHAVEZ [facility] LAB HYPERTENSION, A FIB, HYPERLIPIDEMIA, CORONARY BILLY [id number] 11/29/2014 10:35:00 11/29/2014 23:59:59 CLS Outpatient WILLIAMS CHAVEZ [facility] CARD CAD,HTN,HLP [id number] 10/04/2014 15:05:00 10/04/2014 23:59:59 CLS Outpatient CHAR SHIRLEY FACC, AGNIESZKA FRIEND CCDS [facility] LAB A-FIB, COUMADIN [place] [id number] 05/16/2014 12:55:00 08/14/2014 00:01:00 DIS Outpatient ROGELIO CORTES MD [facility] ONC [id number] 07/19/2014 10:57:00 07/19/2014 12:54:00 DIS Emergency CHARLEY SLAUGHTER MD [facility] ER WEAKNESS DIARRHEA [id number] 06/22/2014 10:06:00 07/03/2014 00:01:00 DIS Outpatient CHAR SHIRLEY FACC, AGNIESZKA FRIEND CCDS [facility] LAB A-FIB, COUMADIN [place] [id number] 01/11/2014 12:35:00 04/11/2014 00:01:00 DIS Outpatient ROGELIO CORTES MD [facility] ONC [id number] 03/21/2014 09:18:00 03/22/2014 00:01:00 DIS Outpatient BAIWILLIAMS CANOP [facility] LAB A-FIB,COUMADIN [place] [id number] 10/12/2013 12:49:00 01/04/2014 15:17:00 DIS Outpatient ROGELIO CORTES MD [facility] ONC [id number] 11/14/2013 12:43:00 11/30/2013 00:01:00 DIS Outpatient BAIWILLIAMS CANO BULK LOADER [facility] LAB A-FIB,[place]OUMADIN [place] [id number] 07/13/2013 12:54:00 10/11/2013 00:01:00 DIS Outpatient ROGELIO CORTES MD [facility] ONC [id number] 07/12/2013 15:19:00 08/24/2013 00:01:00 DIS Outpatient BAIWILLIAMS CANO BULK LOADER [facility] LAB A-FIB,[place]OUMADIN [place] [id number] 07/14/2013 08:37:00 07/14/2013 23:59:59 CLS Outpatient WILLIAMS CHAVEZP [facility] LAB HYPERLIPIDEMIA [id number] 07/05/2013 10:49:00 07/05/2013 18:00:00 DIS Outpatient CHAR SHIRLEY FACC, AGNIESZKA FRIEND CCDS [facility] CATH POSTITVE STRESS TEST,CAD,HLP,HTN [id number] 06/30/2013 07:31:00 06/30/2013 23:59:59 CLS Outpatient AGNIESZKA PARDO MD, FACC, FACP CCDS [facility] RAD CHEST DISCOMFORT,CAD,HX OF CABG [id number] 05/23/2013 14:50:00 06/24/2013 09:54:00 DIS Outpatient ROGELIO CORTES MD [facility] ONC [id number] 04/07/2013 14:55:00 05/10/2013 00:01:00 DIS Outpatient BAIWILLIAMS CANO BULK LOADER [facility] LAB A-FIB,COUMADIN [place] [id number] 04/11/2013 10:25:00 04/11/2013 23:59:59 CLS Outpatient WILLIAMS CHAVEZ L BULK LOADER [facility] LAB CHF [id number] 04/04/2013 11:21:00 04/04/2013 23:59:59 CLS Outpatient BAIMAWILLIAMS L BULK LOADER [facility] LAB CHF [id number] 03/29/2013 11:32:00 03/29/2013 23:59:59 CLS Outpatient BAIMAWILLIAMS L BULK LOADER [facility] LAB DIURETIC TR ELEVATED BNP [id number] 03/23/2013 07:37:00 03/23/2013 23:59:59 CLS Outpatient BAIWILLIAMS CANO L BULK LOADER [facility] RAD ELEVATED LIVER ENZYMES [id number] 03/17/2013 08:27:00 03/17/2013 23:59:59 CLS Outpatient CHAR SHIRLEY FACC, AGNIESZKA FRIEND CCDS [facility] LAB LEG SWELLING,A -FIB, [id number] 10/30/2015 10:34:00 Document Registration [id number] 10/30/2015 10:34:00 Document Registration [id number] 05/16/2014 08:56:00 Document Registration [id number] 01/26/2013 11:35:00 Document Registration [id number] 11/17/2012 19:55:00 Document Registration [id number] 10/18/2012 12:30:00 Document Registration [id number] 07/29/2012 09:27:00 Document Registration [id number] 06/14/2012 11:49:00 Document Registration [id number] 06/14/2012 08:47:00 Document Registration [id number] 05/05/2012 14:07:00 Document Registration [id number] 04/26/2012 11:56:00 Document Registration [id number] 04/21/2012 09:46:00 Document Registration [id number] 03/29/2012 09:20:00 Document Registration [id number] 03/22/2012 16:00:00 Document Registration [id number] 03/19/2012 13:28:00 Document Registration [id number] 02/27/2012 11:47:00 Document Registration [id number] 12/28/2011 14:14:00 Document Registration [id number] 12/01/2011 06:53:00 Document Registration [id number] 11/07/2011 12:08:00 Document Registration [id number] 11/06/2011 10:30:00 Document Registration [id number] 10/31/2011 11:23:00 Document Registration [id number] 10/29/2011 16:17:00 Document Registration [id number] 10/20/2011 06:44:00 Document Registration [id number] 10/13/2011 10:46:00 Document Registration [id number] 09/09/2011 05:05:00 Document Registration [id number] 08/15/2011 11:11:00 Document Registration [id number] 06/20/2011 08:07:00 Document Registration
--- NOTE | 2019-01-10 19:25 | NUR ---
pt/family informed of anticipated wait times for lab. urinal provided. urine specimen requested.
--- NOTE | 2019-01-10 19:28 | ED Neurological Problem ---
General Chief Complaint: Altered Mental Status Stated Complaint: HX OF DEMENTIA/UNABLE TO CALM DOWN Nursing Triage Note: PT AMB TO TRIAGE WITH WITH COMPLAINT OF BEHAVIOR DISTURBANCES. STATES PT HAS BASELINE DEMENTIA AND PARKINSONS. STATES PT HAS BEEN HAVING OUTBURST OF ANGRY FOR THE LAST WEEK. STATES DURING OUTBURST, PT HAS BEEN UNABLE TO BE REDIRECTED OR CALMED DOWN. STATES THAT SHE "DOES NOT KNOW WHAT ELSE TO DO". Nursing Sepsis Screen: No Definite Risk Source: patient, family Exam Limitations: clinical condition History of Present Illness Date Seen by Provider: January 10, 2019 Time Seen by Provider: 19:12 Initial Comments This 83-year-old gentleman is brought to the emergency room by his with concerns about escalating verbally aggressive behavior. He has worsening Parkinson's and dementia. [place] . He is not oriented to place, year, family, etc. 2 nights ago he and his were taking a walk. He walked about three quarters of a mile away from the house and then refused to come home. He was threatening to his . She was forced to return home and drive out to him with the car. She was eventually able to get him home. His is concerned about his safety. His symptoms have been a progressive decline without any particular exacerbating event. They deny any acute symptoms of infectious illness such as fever, cough, vomiting, diarrhea, urinary changes, etc. Patient states that he feels fine physically but he cannot remember answers to basic questions of orientation. He is a patient of Dr. Perez. Family reports patient has seen a neurologist and had a CT performed December 15. They're not sure of the results yet but no results have been called to them. Patient takes warfarin for history of atrial fibrillation. Allergies and Home Medications Allergies Coded Allergies: No Known Drug Allergies (Unverified , 11/18/12) Home Medications Aspirin 81 Mg Tablet.dr, 81 MG PO DAILY, (Reported) Atorvastatin Calcium 40 Mg Tablet, 40 MG PO DAILY, (Reported) Calcium Carbonate/Vitamin D3 1 Each Tablet, 1 TAB PO DAILY, (Reported) Furosemide 40 Mg Tablet, 40 MG PO TUES,THURS, SAT, (Reported) Metoprolol Tartrate 100 Mg Tablet, 100 MG PO BID, (Reported) Multivitamins W-Minerals/Lut 1 Each Tablet, 1 TAB PO DAILY, (Reported) [place] 3 Polyunsat Fatty Acids 1,000 Mg Cap, 1,000 MG PO DAILY, (Reported) Pantoprazole Sodium 40 Mg Tablet.dr, 40 MG PO DAILY, (Reported) Potassium Chloride 10 Meq Capsule.er, 10 MEQ PO , , THU, (Reported) Spironolactone 25 Mg Tablet, 25 MG PO BID, (Reported) Warfarin Sodium 2.5 Mg Tablet, 1.25 MG PO MON, THU, (Reported) TAKES 1/2 (2.5MG) TABLET Warfarin Sodium 2.5 Mg Tablet, 2.5 MG PO ,,,THU,SUN, (Reported) Patient Home Medication List Home Medication List Reviewed: Yes Review of Systems Review of Systems Constitutional: no symptoms reported Eyes: No Symptoms Reported Ears, Nose, Mouth, Throat: no symptoms reported Respiratory: no symptoms reported Cardiovascular: no symptoms reported Gastrointestinal: no symptoms reported Genitourinary: no symptoms reported Musculoskeletal: no symptoms reported Skin: no symptoms reported Psychiatric/Neurological: See HPI Endocrine: No Symptoms Reported Hematologic/Lymphatic: No Symptoms Reported Past Geylyub-Whhvrd-Mtulzv Hx Past Med/Social Hx: Reviewed and Corrections made Patient Social History Alcohol Use: Occasionally Uses Recreational Drug Use: No Smoking Status: Never a Smoker 2nd Hand Smoke Exposure: No Recent Foreign Travel: No Contact w/Someone Who Travel: No Recent Infectious Disease Expo: No Recent Hopitalizations: No Immunizations Up To Date Tetanus Booster (TDap): More than 5yrs PED Vaccines UTD: No Date of Pneumonia Vaccine: Jul 05, 2011 Date of Influenza Vaccine: May 31, 2015 Seasonal Allergies Seasonal Allergies: No Past Medical History Surgeries: Yes CABG Respiratory: Yes Pneumonia Currently Using CPAP: No Currently Using BIPAP: No Cardiac: Yes Atrial Fibrillation, Coronary Artery Disease, Heart Attack Neurological: Yes (PARKINSON) Dementia, Parkinson's Disease Reproductive Disorders: No Sexually Transmitted Disease: No HIV/AIDS: No Genitourinary: Yes Kidney Stones, Renal Failure (CKD) Gastrointestinal: No Musculoskeletal: Yes Arthritis Endocrine: No HEENT: Yes Cataract Hearing Impairment: Denies Cancer: No Psychosocial: Yes Sleep Difficulties, Anxiety Integumentary: No Blood Disorders: No Family Medical History Osteoporosis Pneumococcal pneumonia G8 BROTHER, Physical Exam Vital Signs Vital Signs - First Documented 01/10/19 18:50 Temp 97.5 Pulse 70 Resp 17 B/P (MAP) 150/69 (96) Pulse Ox 95 O2 Delivery Room Air Capillary Refill : Less Than 3 Seconds Height, Weight, BMI Height: 5'8.00" Weight: 203lbs. 0.0oz. 92.691596xv; 30.3 BMI Method:Stated General Appearance: WD/WN, no apparent distress, other (confused) HEENT: PERRL/EOMI, normal ENT inspection, pharynx normal Neck: normal inspection Respiratory: lungs clear, normal breath sounds, no respiratory distress, no accessory muscle use Cardiovascular: regular rate, rhythm, no edema, no murmur Gastrointestinal: normal bowel sounds, non tender, soft Extremities: normal inspection, no pedal edema Neurologic/Psychiatric: pantographer II-XII nml as tested, no motor/sensory deficits, alert, other (mood is sporadic. Patient is disoriented to place, date, year, and family members. He is conversational at times when he chooses to be.) Crainal Nerves: normal hearing, normal speech, PERRL Coordination/Gait: normal gait Motor/Sensory: no motor deficit, no sensory deficit Skin: normal color, warm/dry Progress/Results/Core Measures Results/Orders Lab Results Laboratory Tests Test 01/10/19 19:25 01/10/19 21:25 Range/Units White Blood Count 5.5 4.3-11.0 10^3/uL Red Blood Count 3.97 L 4.35-5.85 10^6/uL Hemoglobin 13.0 L 13.3-17.7 G/DL Hematocrit 38 L 40-54 % Mean Corpuscular Volume 97 80-99 FL Mean Corpuscular Hemoglobin 33 25-34 PG Mean Corpuscular Hemoglobin Concent 34 32-36 G/DL Red Cell Distribution Width 12.7 10.0-14.5 % Platelet Count 107 L 130-400 10^3/uL Mean Platelet Volume 12.0 H 7.4-10.4 FL Neutrophils (%) (Auto) 67 42-75 % Lymphocytes (%) (Auto) 17 12-44 % Monocytes (%) (Auto) 13 H 0-12 % Eosinophils (%) (Auto) 3 0-10 % Basophils (%) (Auto) 0 0-10 % Neutrophils # (Auto) 3.7 1.8-7.8 X 10^3 Lymphocytes # (Auto) 0.9 L 1.0-4.0 X 10^3 Monocytes # (Auto) 0.7 0.0-1.0 X 10^3 Eosinophils # (Auto) 0.1 0.0-0.3 10^3/uL Basophils # (Auto) 0.0 0.0-0.1 10^3/uL Prothrombin Time 24.0 H 12.2-14.7 SEC INR Comment 2.1 H 0.8-1.4 Activated Partial Thromboplast Time 42 H 24-35 SEC Sodium Level 140 135-145 MMOL/L Potassium Level 4.5 3.6-5.0 MMOL/L Chloride Level 105 98-107 MMOL/L Carbon Dioxide Level 22 21-32 MMOL/L Anion Gap 13 5-14 MMOL/L Blood Urea Nitrogen 22 H 7-18 MG/DL Creatinine 1.47 H 0.60-1.30 MG/DL Estimat Glomerular Filtration Rate 46 BUN/Creatinine Ratio 15 Glucose Level 113 H 70-105 MG/DL Calcium Level 9.5 8.5-10.1 MG/DL Corrected Calcium 9.5 8.5-10.1 MG/DL Magnesium Level 2.2 1.8-2.4 MG/DL Total Bilirubin 0.6 0.1-1.0 MG/DL Aspartate Amino Transf (AST/SGOT) 33 5-34 U/L Alanine Aminotransferase (ALT/SGPT) 16 0-55 U/L Alkaline Phosphatase 83 40-136 U/L Total Protein 6.7 6.4-8.2 GM/DL Albumin 4.0 3.2-4.5 GM/DL TSH Gregory Testing 1.77 0.35-4.94 UIU/ML Urine Color YELLOW Urine Clarity CLEAR Urine pH 7 5-9 Urine Specific [place] 1.005 L 1.016-1.022 Urine Protein NEGATIVE NEGATIVE Urine Glucose (UA) NEGATIVE NEGATIVE Urine Ketones NEGATIVE NEGATIVE Urine Nitrite NEGATIVE NEGATIVE Urine Bilirubin NEGATIVE NEGATIVE Urine Urobilinogen NORMAL NORMAL MG/DL Urine Leukocyte Esterase NEGATIVE NEGATIVE Urine RBC (Auto) NEGATIVE NEGATIVE Urine RBC 0-2 /HPF Urine WBC RARE /HPF Urine Crystals NONE /LPF Urine Bacteria NEGATIVE /HPF Urine Casts NONE /LPF Urine Mucus NEGATIVE /LPF Urine Culture Indicated NO My Orders Orders - CHARLEY SLAUGHTER MD Cbc With Automated Diff (01/10/19 19:10) Comprehensive Metabolic Panel (01/10/19 19:10) Magnesium (01/10/19 19:10) Thyroid Analyzer (01/10/19 19:10) Ua Culture If Indicated (01/10/19 19:10) Ed Iv/Invasive Line Start (01/10/19 19:10) Protime With Inr (01/10/19 19:30) Partial Thromboplastin Time (01/10/19 19:30) Ed Iv/Invasive Line Start (01/10/19 20:02) Ns Iv 1000 Ml (Sodium Chloride 0.9%) (01/10/19 20:02) Medications Given in ED Current Medications Medications Dose Ordered Sig/Hipolito Route Start Time Stop Time Status Last Admin Dose Admin Sodium Chloride 1,000 ml @ 0 mls/hr Q0M ONCE IV 01/10/19 20:02 01/10/19 20:03 DC 01/10/19 20:23 0 MLS/HR Vital Signs/I&O 01/10/19 01/11/19 18:50 00:40 Temp 97.5 98.1 Pulse 70 67 Resp 17 16 B/P (MAP) 150/69 (96) 113/44 (67) Pulse Ox 95 97 O2 Delivery Room Air Room Air 01/11/19 00:00 Intake Total 1000 ml Balance 1000 ml Blood Pressure Mean: 96 Progress Progress Note #1: Time: 22:06 Progress Note Labs and urine were unremarkable. Patient has been medically cleared at this point. He has mostly been cooperative. He has eaten and got up to the restroom to provide a urine sample with some assistance and direction. I discussed the case with Dr. Thomas and with the [facility] screener, Polina Ospina. She will present to the ER shortly to assess the patient. Patient and his both state they would like transferred to the [facility]. Progress Note #2: Time: 23:45 Progress Note Screener is here visiting with patient. Patient's went home to obtain there will. This will be reviewed to see if there is adequate DPOA documentation. Progress Note #3: Time: 00:31 Progress Note Patient's will was reviewed and had appropriate documentation to allow his DPOA capacity. Paperwork was completed by the screener and patient will be transferred to [facility] via EMS. Departure Impression Primary Impression: Dementia Qualified Codes: F03.91 - Unspecified dementia with behavioral disturbance Additional Impressions: Parkinsons disease Aggressive behavior Disposition: 02 XFER SHT-TRM HOSP Condition: Stable Transfer Time Spoke to Accepting Phy: 20:27 Transfer Progress Notes Case was discussed with Dr. Thomas who accepts patient as long as he screens in with a behavioral health screener. Transfer Time: 00:46 Transfer Facility: [facility] Method of Transfer: EMS Departure-Patient Inst. Referrals: JAZIEL PEREZ MD (PCP/Family) Primary Care Physician Copy Copies To 1: JAZIEL PEREZ MD, JOSHUA T MD January 10, 2019 19:28
[2019-01-10 19:31] LABS: BASOPHILS % (AUTO) 0 % (0-10); EOSINOPHILS # (AUTO) 0.1 10^3/uL (0.0-0.3); EOSINOPHILS % (AUTO) 3 % (0-10); HEMATOCRIT 38 % (40-54); LYMPHOCYTES # (AUTO) 0.9 X 10^3 (1.0-4.0); LYMPHOCYTES % (AUTO) 17 % (12-44); MEAN CORPUSCULAR HEMOGLOBIN 33 PG (25-34); MEAN CORPUSCULAR HGB CONC 34 G/DL (32-36); MEAN CORPUSCULAR VOLUME 97 FL (80-99); MONOCYTES # (AUTO) 0.7 X 10^3 (0.0-1.0); MONOCYTES % (AUTO) 13 % (0-12); NEUTROPHILS # (AUTO) 3.7 X 10^3 (1.8-7.8); NEUTROPHILS % (AUTO) 67 % (42-75); PLATELET COUNT 107 10^3/uL (130-400); RED CELL DISTRIBUTION WIDTH 12.7 % (10.0-14.5); WHITE BLOOD COUNT 5.5 10^3/uL (4.3-11.0)
--- NOTE | 2019-01-10 19:57 | NUR ---
pt denies being able to void a this time.
[2019-01-10 19:58] LABS: INR 2.1 (0.8-1.4)
[2019-01-10] MEDS ORDERED: NS IV 1000 ML 1,000 ML IV ONE (20:02)
[2019-01-10 20:03] LABS: BILIRUBIN,TOTAL 0.6 MG/DL (0.1-1.0); CALCIUM 9.5 MG/DL (8.5-10.1); CREATININE SERUM 1.47 MG/DL (0.60-1.30); MAGNESIUM 2.2 MG/DL (1.8-2.4); POTASSIUM 4.5 MMOL/L (3.6-5.0); TOTAL PROTEIN 6.7 GM/DL (6.4-8.2)
[2019-01-10 20:22] LABS: TSH (THYROID ANALYZER) 1.77 UIU/ML (0.35-4.94)
--- NOTE | 2019-01-10 20:30 | NUR ---
pt repositioned in bed, denies being able to void at this time.
--- NOTE | 2019-01-10 21:11 | NUR ---
pt assissted up to restroom to attempt to void.
[2019-01-10 21:31] LABS: BILIRUBIN,URINE NEGATIVE (NEGATIVE); CLARITY,URINE CLEAR; COLOR,URINE YELLOW; GLUCOSE, URINE (UA) NEGATIVE (NEGATIVE); KETONES,URINE NEGATIVE (NEGATIVE); LEUKOCYTE ESTERASE ,URINE NEGATIVE (NEGATIVE); NITRITE,URINE NEGATIVE (NEGATIVE); PH,URINE 7 (5-9); PROTEIN,URINE NEGATIVE (NEGATIVE); UROBILINOGEN,URINE NORMAL (NORMAL)
[2019-01-10 21:39] LABS: BACTERIA,URINE NEGATIVE /HPF; RBC,URINE 0-2 /HPF; WBC,URINE RARE /HPF
--- NOTE | 2019-01-10 21:58 | NUR ---
family updated on pending consult with senior behavioral health screener.
--- NOTE | 2019-01-10 22:26 | NUR ---
behavioral health screener here seeing patient.
[2019-01-10] MEDS ORDERED: DONE10TA41 (22:30)
[2019-01-10] MEDS ORDERED: MEMA10TA22 (22:30)
[2019-01-10] MEDS ORDERED: CARB1TAB19 (22:30)
[2019-01-11 00:40] VITALS: BP 113/44
== END 2019-01-11 00:46 | disposition short-term general hospital (02) ==
LOC: EDUNIT# 18:37 → ER 18:38
DX: G20 Parkinson's disease (principal); F02.81 Dementia in other diseases classified elsewhere, unspecified severity, with behavioral disturbance; F91.1 Conduct disorder, childhood-onset type; I48.91 Unspecified atrial fibrillation; I25.10 Atherosclerotic heart disease of native coronary artery without angina pectoris; I25.2 Old myocardial infarction; N18.9 Chronic kidney disease, unspecified; F41.9 Anxiety disorder, unspecified; Z87.442 Personal history of urinary calculi; Z79.01 Long term (current) use of anticoagulants; Z79.82 Long term (current) use of aspirin; Z95.1 Presence of aortocoronary bypass graft; Z87.01 Personal history of pneumonia (recurrent)
CPT/HCPCS: 36415; 80053; 81000; 82962; 83735; 84443; 85025; 85610; 85730

== ENCOUNTER → 2019-02-02 | Outpatient (CLI) | payer MEDICARE, OTHER ==
[~2019-02-02] MED LIST changes: +CARB1TAB19; +DONE10TA41; +MEMA10TA22
[2019-02-02 11:54] LABS: INR 1.7 (0.8-1.4); PROTHROMBIN TIME PATIENT 20.4 SEC (12.2-14.7)
== END ==
LOC: LAB 10:58
PROVIDERS: ATTEND Nurse Practitioner Family
DX: Z51.81 Encounter for therapeutic drug level monitoring (principal); Z79.01 Long term (current) use of anticoagulants
CPT/HCPCS: 36415; 85610

== ENCOUNTER 2019-02-10 17:00 | Observation (INO) | payer MEDICARE, OTHER ==
[~2019-02-10] VITALS: Ht 172.7 cm; Wt 92.5 kg
[2019-02-10] MEDS ORDERED: ASPIRIN 81 MG CHEW (CHILDREN'S ASA) PO ONE (17:30)
[2019-02-10 17:31] LABS: BASOPHILS % (AUTO) 0 % (0-10); EOSINOPHILS # (AUTO) 0.3 10^3/uL (0.0-0.3); EOSINOPHILS % (AUTO) 4 % (0-10); HEMATOCRIT 40 % (40-54); HEMOGLOBIN 13.6 G/DL (13.3-17.7); LYMPHOCYTES # (AUTO) 1.4 X 10^3 (1.0-4.0); LYMPHOCYTES % (AUTO) 24 % (12-44); MEAN CORPUSCULAR HEMOGLOBIN 33 PG (25-34); MEAN CORPUSCULAR HGB CONC 34 G/DL (32-36); MEAN CORPUSCULAR VOLUME 97 FL (80-99); MEAN PLATELET VOLUME 11.9 FL (7.4-10.4); MONOCYTES # (AUTO) 1.1 X 10^3 (0.0-1.0); MONOCYTES % (AUTO) 18 % (0-12); NEUTROPHILS # (AUTO) 3.1 X 10^3 (1.8-7.8); NEUTROPHILS % (AUTO) 53 % (42-75); PLATELET COUNT 133 10^3/uL (130-400); RED CELL DISTRIBUTION WIDTH 12.9 % (10.0-14.5); WHITE BLOOD COUNT 5.9 10^3/uL (4.3-11.0)
--- NOTE | 2019-02-10 17:34 | NUR ---
MED LIST TO CHART.
--- NOTE | 2019-02-10 17:35 | ED Chest Pain ---
General Chief Complaint: Chest Pain Stated Complaint: CP Source: patient, family, caregiver Exam Limitations: no limitations (HUMA SHELDON MD) History of Present Illness Date Seen by Provider: Feb 10, 2019 Time Seen by Provider: 17:10 Initial Comments Here with vague report of central chest pain. Lasted approximately an 1-1/2 hours and states that he felt like his throat was scratchy. Caregiver reports that he appeared to become somewhat sweaty and clammy. Patient has dementia and is a poor historian. He states he has no chest pain now but did have chest pain earlier with mild cough and scratchy throat. No vomiting or diarrhea. No weakness otherwise. Better now. Does have significant cardiac history. Does have pacemaker. reports that he fell twice this week walking up the stairs. She states that he hit his anterior chest wall. Denies hitting his head and is no indication of injury to the head. Timing/Duration: 1-3 hours, gone now Severity/Quality: moderate, other (scratching and burning.) Location: central Radiation: no radiation Activities at Onset: none Prior CP/Workup: cardiac cath, echocardiography, stress test Modifying Factors: improves with rest ASA po REAL ESTATE APPRAISER SUPERVISOR: No NTG SL REAL ESTATE APPRAISER SUPERVISOR: No Associated Symptoms: No abdominal pain, No back pain; diaphoresis; No fever/chills, No nausea/vomiting, No shortness of breath, No weakness (HUMA SHELDON MD) Allergies and Home Medications Allergies Coded Allergies: No Known Drug Allergies (Unverified , 11/18/12) Home Medications Aspirin 81 Mg Tablet.dr, 81 MG PO DAILY, (Reported) Atorvastatin Calcium 40 Mg Tablet, 40 MG PO DAILY, (Reported) Calcium Carbonate/Vitamin D3 1 Each Tablet, 1 TAB PO DAILY, (Reported) Furosemide 40 Mg Tablet, 40 MG PO ES,, SAT, (Reported) Metoprolol Tartrate 100 Mg Tablet, 100 MG PO BID, (Reported) Multivitamins W-Minerals/Lut 1 Each Tablet, 1 TAB PO DAILY, (Reported) [place] 3 Polyunsat Fatty Acids 1,000 Mg Cap, 1,000 MG PO DAILY, (Reported) Pantoprazole Sodium 40 Mg Tablet.dr, 40 MG PO DAILY, (Reported) Spironolactone 25 Mg Tablet, 25 MG PO BID, (Reported) Warfarin Sodium 2.5 Mg Tablet, 1.25 MG PO MON, FRI, (Reported) TAKES 1/2 (2.5MG) TABLET Warfarin Sodium 2.5 Mg Tablet, 2.5 MG PO ,,,SAT,SUN, (Reported) Patient Home Medication List Home Medication List Reviewed: Yes (HUMA SHELDON MD) Review of Systems Review of Systems Constitutional: see HPI; No chills, No fever EENTM: Throat Pain Respiratory: Cough; Denies Shortness of Air Cardiovascular: See HPI, Chest Pain, Irregular Heart Rate Gastrointestinal: No Symptoms Reported Genitourinary: No Symptoms Reported Musculoskeletal: see HPI, joint pain, muscle pain Skin: no symptoms reported Psychiatric/Neurological: No Symptoms Reported (HUMA SHELDON MD) All Other Systems Reviewed Negative Unless Noted: Yes (HUMA SHELDON MD) Past Zollanu-Nvegxt-Lafwei Hx Past Med/Social Hx: Reviewed Nursing Past Med/Soc Hx (HUMA SHELDON MD) Patient Social History Alcohol Use: Denies Use Recreational Drug Use: No Smoking Status: Never a Smoker 2nd Hand Smoke Exposure: No Recent Foreign Travel: No Contact w/Someone Who Travel: No Recent Hopitalizations: No (HUMA SHELDON MD) Immunizations Up To Date Tetanus Booster (TDap): More than 5yrs PED Vaccines UTD: No Date of Pneumonia Vaccine: Jul 05, 2011 Date of Influenza Vaccine: May 31, 2015 (HUMA SHELDON MD) Seasonal Allergies Seasonal Allergies: No (HUMA SHELDON MD) Past Medical History Surgeries: Yes CABG Respiratory: Yes Pneumonia Currently Using CPAP: No Currently Using BIPAP: No Cardiac: Yes Atrial Fibrillation, Coronary Artery Disease, Heart Attack Neurological: Yes (PARKINSON) Dementia, Parkinson's Disease Reproductive Disorders: No Sexually Transmitted Disease: No HIV/AIDS: No Genitourinary: Yes Kidney Stones, Renal Failure Gastrointestinal: No Musculoskeletal: Yes Arthritis Endocrine: No HEENT: Yes Cataract Hearing Impairment: Denies Cancer: No Psychosocial: Yes Sleep Difficulties, Anxiety Integumentary: No Blood Disorders: No (HUMA SHELDON MD) Family Medical History Reviewed Nursing Family Hx (HUMA SHELDON MD) Osteoporosis Pneumococcal pneumonia G8 BROTHER, Physical Exam Vital Signs Vital Signs - First Documented 02/10/19 17:00 Temp 96.4 Pulse 64 Resp 18 B/P (MAP) 150/72 (98) Pulse Ox 100 O2 Delivery Room Air (NIA SELLESR APRN) Vital Signs Capillary Refill : (HUMA SHELDON MD) Height, Weight, BMI Height: 5'8.00" Weight: 203lbs. 0.0oz. [id number]; 30.3 BMI Method:Stated General Appearance: No Apparent Distress, WD/WN HEENT: PERRL/EOMI, Pharynx Normal Neck: Non Tender, Supple Respiratory: Lungs Clear, Normal Breath Sounds Cardiovascular: No Murmur, Irregularly Irregular Gastrointestinal: Non Tender, Soft Extremity: Normal Range of Motion, Non Tender, No Calf Tenderness Neurologic/Psychiatric: Alert, Normal Mood/Affect Skin: Normal Color, Warm/Dry (HUMA SHELDON MD) Progress/Results/Core Measures Results/Orders Lab Results Laboratory Tests Test 02/10/19 17:05 02/10/19 19:16 Range/Units White Blood Count 5.9 4.3-11.0 10^3/uL Red Blood Count 4.16 L 4.35-5.85 10^6/uL Hemoglobin 13.6 13.3-17.7 G/DL Hematocrit 40 40-54 % Mean Corpuscular Volume 97 80-99 FL Mean Corpuscular Hemoglobin 33 25-34 PG Mean Corpuscular Hemoglobin Concent 34 32-36 G/DL Red Cell Distribution Width 12.9 10.0-14.5 % Platelet Count 133 130-400 10^3/uL Mean Platelet Volume 11.9 H 7.4-10.4 FL Neutrophils (%) (Auto) 53 42-75 % Lymphocytes (%) (Auto) 24 12-44 % Monocytes (%) (Auto) 18 H 0-12 % Eosinophils (%) (Auto) 4 0-10 % Basophils (%) (Auto) 0 0-10 % Neutrophils # (Auto) 3.1 1.8-7.8 X 10^3 Lymphocytes # (Auto) 1.4 1.0-4.0 X 10^3 Monocytes # (Auto) 1.1 H 0.0-1.0 X 10^3 Eosinophils # (Auto) 0.3 0.0-0.3 10^3/uL Basophils # (Auto) 0.0 0.0-0.1 10^3/uL Prothrombin Time 22.0 H 12.2-14.7 SEC INR Comment 1.8 H 0.8-1.4 Activated Partial Thromboplast Time 42 H 24-35 SEC Sodium Level 138 135-145 MMOL/L Potassium Level 4.5 3.6-5.0 MMOL/L Chloride Level 101 98-107 MMOL/L Carbon Dioxide Level 30 21-32 MMOL/L Anion Gap 7 5-14 MMOL/L Blood Urea Nitrogen 20 H 7-18 MG/DL Creatinine 1.55 H 0.60-1.30 MG/DL Estimat Glomerular Filtration Rate 43 BUN/Creatinine Ratio 13 Glucose Level 101 70-105 MG/DL Calcium Level 9.7 8.5-10.1 MG/DL Corrected Calcium 9.5 8.5-10.1 MG/DL Magnesium Level 2.0 1.8-2.4 MG/DL Total Bilirubin 0.7 0.1-1.0 MG/DL Aspartate Amino Transf (AST/SGOT) 26 5-34 U/L Alanine Aminotransferase (ALT/SGPT) 24 0-55 U/L Alkaline Phosphatase 92 40-136 U/L Myoglobin 83.0 10.0-92.0 NG/ML Troponin I < 0.028 0.029 H <0.028 NG/ML B-Type Natriuretic Peptide 359.3 H <100.0 PG/ML Total Protein 7.2 6.4-8.2 GM/DL Albumin 4.2 3.2-4.5 GM/DL (NIA SELLERS APRN) My Orders Orders - NIA SELLERS APRN Troponin I (02/10/19 19:05) Enoxaparin Injection (Lovenox Injection) (02/10/19 20:15) (NIA SELLERS APRN) Medications Given in ED Current Medications Medications Dose Ordered Sig/Hipolito Route Start Time Stop Time Status Last Admin Dose Admin Aspirin 324 mg ONCE ONCE PO 02/10/19 17:30 02/10/19 17:31 DC 02/10/19 17:36 324 MG Enoxaparin Sodium 90 mg ONCE ONCE SC 02/10/19 20:15 02/10/19 20:16 DC 02/10/19 20:16 90 MG Sodium Chloride 500 ml @ 0 mls/hr Q0M ONCE IV 02/10/19 18:06 02/10/19 18:07 DC 02/10/19 18:12 500 MLS/HR (NIA SELLERS APRN) Vital Signs/I&O 02/10/19 02/10/19 17:00 18:18 Temp 96.4 Pulse 64 51 Resp 18 18 B/P (MAP) 150/72 (98) 129/60 (83) Pulse Ox 100 98 O2 Delivery Room Air Room Air (NIA SELLERS APRN) Progress Progress Note : Progress Note Seen and evaluated. IV, labs, EKG and chest x-ray ordered. ASA 324 mg by mouth ordered. Monitor patient. (HUMA SHELDON MD) Departure Communication (Admissions) Time/Spoke to Admitting Phy: 20:19 Discussed with given the increase in troponin in combination with unusual symptoms he would warrant observation.Advised the that while the troponin may be elevated and is not necessarily indicative of anything other than his re nal insufficiency. (NIA SELLERS APRN) Impression Primary Impression: Atypical chest pain Disposition: ADMITTED INPATIENT Condition: Stable Admissions Decision to Admit Reason: Admit from ER (General) Decision to Admit/Date: Feb 10, 2019 Time/Decision to Admit Time: 20:19 (NIA SELLERS APRN) Departure-Patient Inst. Referrals: JAZIEL PRATER MD (PCP/Family) Primary Care Physician HUMA SHELDON MD Feb 10, 2019 17:35 NIA SELLERS APRN Feb 10, 2019 20:21
--- OUTSIDE RECORDS SUMMARY | 2019-02-10 17:37 | XMS REPORT | Continuity of Care Document ---
Author Organization Unknown Address Unknown Allergies Active Description Code Type Severity Reaction Onset Reported/Identified Relationship to Patient Clinical Status Yes NO KNOWN DRUG ALLERGIES UNKNOWN NO KNOWN DRUG ALLERG Yes NO KNOWN DRUG ALLERGIES UNKNOWN UNKNOWN Yes No Known Drug Allergies [id number] Drug Allergy Unknown N/A 11/18/2012 Medications Medication Packaging Start Date Stop Date Route Dosage Sig ACETAMINOPHEN ORAL TABLET 325mg(Tylenol) MG 01/11/2019 02/10/2019 PRN EVERY 6 Hour ALUM/MAG/SIMETH 30CC LIQ (MYLANTA PLUS) cc 01/11/2019 02/10/2019 PRN Q4H POLYETHYLENE GLYCOL POWDER UD PWD (MIRALAX 17GM UNIT DOSE PAKS) gm 01/11/2019 02/10/2019 PRN Q3H LORAZEPAM TAB 0.5 MG (ATIVAN) MG 01/11/2019 01/11/2019 PRN ONCE CARBI/L-DOPA 25/100 TAB (SINEMET 25/100) tab 01/11/2019 02/09/2019 TID&0800,1400,2000 METOPROLOL-XL TAB 50 MG (TOPROL XL) MG 01/11/2019 02/09/2019 BID&0800,2000 CALMOSEPTINE OINT TUBE (RISAMINE OINT) diogo 01/11/2019 02/10/2019 PRN QID SPIRONOLACTONE TAB 25 MG (ALDACTONE) MG 01/11/2019 02/09/2019 BID&0800,2000 Memantine oral tablet 10mg (NAMENDA) MG 01/11/2019 02/09/2019 BID&0800,2000 LACTULOSE SYRUP LIQ 20 GM/30CC (CHRONULAC SYRUP) GM 01/11/2019 02/10/2019 PRN BID MILK OF MAGNESIA LIQ ml 01/11/2019 02/10/2019 PRN BID ASPIRIN ENTERIC COATED TAB 81 MG (BABY ASPIRIN EC) MG 01/11/2019 02/09/2019 Daily&0900 FUROSEMIDE TAB 40 MG (LASIX) MG 01/11/2019 02/08/2019 Daily&0900 PANTOPRAZOLE TAB 40 MG (PROTONIX) MG 01/11/2019 02/09/2019 Daily&0900 FISH OIL CAP CAP 1000 MG (OMEGA 3) MG 01/11/2019 02/09/2019 Daily&0900 Ulfnfheg-dvph-epb-folic acid) tab,CHEWable (Centrum) TAB 01/11/2019 02/09/2019 Daily&0900 RISPERIDONE DISSOLVETAB TAB 0.25 MG (RISPERDAL M-TAB) MG 01/11/2019 02/10/2019 TID&0800,1400,2000 WARFARIN TAB 2.5 MG (COUMADIN) MG 01/11/2019 02/09/2019 QPM&1800 SIMVASTATIN TAB 40 MG (ZOCOR) MG 01/11/2019 02/09/2019 QPM&2000 DONEPEZIL TAB 10 MG (ARICEPT) MG 01/11/2019 02/09/2019 QHS&2100 LORAZEPAM TAB 0.5 MG (ATIVAN) MG 01/11/2019 01/18/2019 PRN Q8H PAROXETINE TAB 20 MG (PAXIL) MG 01/12/2019 02/10/2019 Daily&0900 SERTRALINE TAB 50 MG (ZOLOFT) MG 01/12/2019 01/18/2019 Daily&0900 Ziprasidone IM recon soln 20mg/mL vial (Geodon) MG 01/12/2019 01/12/2019 ONCE&1725 RISPERIDONE TAB 0.25 MG (RISPERDAL) MG 01/12/2019 02/11/2019 TID&0800,1400,2000 RISPERIDONE TAB 0.5 MG (RISPERDAL) MG 01/13/2019 02/12/2019 TID&0800,1400,2000 BISACODYL SUPPOS 10 MG (DULCOLAX SUPPOS) MG 01/14/2019 01/21/2019 PRN Daily WARFARIN TAB 2.5 MG (COUMADIN) MG 01/14/2019 02/11/2019 QPM&1800 BISACODYL SUPPOS 10 MG (DULCOLAX SUPPOS) MG 01/15/2019 01/21/2019 PRN Daily RISPERIDONE TAB 0.25 MG (RISPERDAL) MG 01/16/2019 02/15/2019 TID&0800,1400,2000 RISPERIDONE TAB 0.5 MG (RISPERDAL) MG 01/17/2019 02/16/2019 TID&0800,1400,2000 RISPERIDONE TAB 0.5 MG (RISPERDAL) MG 01/18/2019 02/16/2019 Daily&1200 RISPERIDONE TAB 0.5 MG (RISPERDAL) MG 01/18/2019 02/16/2019 Daily&2100 SERTRALINE TAB 50 MG (ZOLOFT) MG 01/18/2019 02/16/2019 QHS&2100 SERTRALINE TAB 50 MG (ZOLOFT) MG 01/20/2019 01/20/2019 ONCE&1209 TRAZODONE TAB 50 MG (DESYREL) MG 01/20/2019 02/19/2019 PRN QHS SERTRALINE TAB 50 MG (ZOLOFT) MG 01/21/2019 02/19/2019 Daily&0900 RISPERIDONE TAB 0.5 MG (RISPERDAL) MG 01/21/2019 01/21/2019 ONCE&1052 RISPERIDONE TAB 0.25 MG (RISPERDAL) MG 01/21/2019 01/21/2019 ONCE&1052 RISPERIDONE TAB 0.5 MG (RISPERDAL) MG 01/21/2019 02/20/2019 BID&0700,1730 Problems Date Dx Coded Attending Type Code [...] V58.61 ANTICOAGULANTS,LT,CURRENT USE 12/01/2011 Ot V58.66 LONG-TERM (CURRENT) USE OF ASPIRIN 12/01/2011 Ot V58.69 OTH MED,LT,CURRENT USE 12/28/2011 Ot 401.9 HYPERTENSION NOS 12/28/2011 Ot 977.8 POISON-MEDICINAL AGT NEC 12/28/2011 Ot E849.0 ACCIDENT IN HOME 12/28/2011 Ot E858.8 ACC POISONING- DRUG NEC 12/28/2011 Ot V58.69 OTH MED,LT,CURRENT USE 03/25/2012 Ot 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 03/25/2012 [...] V58.61 ANTICOAGULANTS,LT,CURRENT USE 08/18/2012 Ot 719.41 JOINT PAIN-SHLDER 08/18/2012 Ot V57.1 PHYSICAL THERAPY NEC 10/24/2012 [...] Ot 530.81 ESOPHAGEAL REFLUX 11/23/2012 Ot 535.40 OT SPECIFIED GASTRITIS,W/O MENTION OF H 11/23/2012 Ot 553.3 DIAPHRAGMATIC HERNIA 11/23/2012 Ot 562.10 DIVERTICULOSIS COLON (W/O MENT OF HEMORR 11/23/2012 Ot 574.21 CHOLELITHIAS NOS W OBSTR 11/23/2012 Ot 789.59 OTHER ASCITES 11/23/2012 Ot V11.3 HX OF ALCOHOLISM 11/23/2012 Ot V45.01 CARDIAC PACEMAKER IN SITU 11/23/2012 Ot 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 02/03/2013 Ot 427.31 ATRIAL FIBRILLATION 02/03/2013 Ot V58.61 ANTICOAGULANTS,LT,CURRENT USE 05/10/2013 WILLIAMS CHAVEZ ANIMAL PHYSIOLOGY TEACHER Ot 427.31 ATRIAL FIBRILLATION 05/10/2013 BAIMAWILLIAMS ANIMAL PHYSIOLOGY TEACHER Ot V58.61 ANTICOAGULANTS,LT,CURRENT USE 06/08/2013 BUSTILLO DO, SEB K V04.81 FLU SHOT 06/24/2013 ROGELIO CORTES MD Ot 272.0 PURE HYPERCHOLESTEROLEM 06/24/2013 ROGELIO CORTES MD Ot 285.9 ANEMIA NOS 06/24/2013 ROGELIO CORTES MD Ot 287.5 THROMBOCYTOPENIA NOS 06/24/2013 SEBASTIAN SHIRLEY, ROGELIO Alberts Ot 403.90 HYPTNSV [...] MD Ot V58.69 OTH MED,LT,CURRENT USE 07/05/2013 AGNIESZKA PARDO MD, FACCP CCDS Ot 272.4 HYPERLIPIDEMIA NEC/NOS 07/05/2013 CHAR SHIRLEY FACC, AGNIESZKA BURGERP CCDS Ot 401.9 HYPERTENSION NOS 07/05/2013 AGNIESZKA PARDO MD, FACC FACP CCDS Ot 414.01 CORONARY ATHEROSCLEROSIS OF [place] CORON 07/05/2013 AGNIESZKA PARDO MD, FACCP CCDS Ot 414.2 CHRONIC TOTAL OCCLUSION OF CORONARY [place] 07/05/2013 AGNIESZKA PARDO MD, FACC FACP CCDS Ot 427.31 ATRIAL FIBRILLATION 07/05/2013 CHAR MD FACC, ALI FACP CCDS Ot 427.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 07/05/2013 CHAR SHIRLEY FACC, AGNIESZKA FACP CCDS Ot 786.59 CHEST PAIN NEC 07/05/2013 CHAR SHIRLEY FACC, AGNIESZKA FACP CCDS Ot 794.30 ABN CARDIOVASC STUDY NOS 07/05/2013 CHAR SHIRLEY FACC, ALI FACP CCDS Ot V15.82 HISTORY OF TOBACCO USE 07/05/2013 CHAR SHIRLEY FACC, AGNIESZKA FACP CCDS Ot V45.01 CARDIAC PACEMAKER IN SITU 07/05/2013 CHAR SHIRLEY FACC, AGNIESZKA FACP CCDS Ot 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 07/05/2013 CHAR SHIRLEY FACC, AGNIESZKA FACP CCDS Ot V58.61 ANTICOAGULANTS,LT,CURRENT USE 07/05/2013 CHAR SHIRLEY FACC, AGNIESZKA FRIEND CCDS Ot V58.69 OTH MED,LT,CURRENT USE 08/24/2013 WILLIAMS CHAVEZ ANIMAL PHYSIOLOGY TEACHER Ot 427.31 ATRIAL FIBRILLATION 08/24/2013 WILLIAMS CHAVEZ ANIMAL PHYSIOLOGY TEACHER Ot V58.61 ANTICOAGULANTS,LT,CURRENT USE 10/11/2013 ROGELIO CORTES [...] V58.69 OTH MED,LT,CURRENT USE 11/30/2013 WILLIAMS CHAVEZ ANIMAL PHYSIOLOGY TEACHER Ot 427.31 ATRIAL FIBRILLATION 11/30/2013 WILLIAMS CHAVEZ ANIMAL PHYSIOLOGY TEACHER Ot V58.61 ANTICOAGULANTS,LT,CURRENT USE 01/04/2014 ROGELIO CORTES [...] V58.69 OTH MED,LT,CURRENT USE 03/22/2014 WILLIAMS CHAVEZ ANIMAL PHYSIOLOGY TEACHER Ot 427.31 ATRIAL FIBRILLATION 03/22/2014 WILLIAMS CHAVEZ ANIMAL PHYSIOLOGY TEACHER Ot V58.61 ANTICOAGULANTS,LT,CURRENT USE 04/11/2014 ROGELIO CORTES [...] OTH MED,LT,CURRENT USE 07/03/2014 AGNIESZKA PARDO MD, FACC, FACP CCDS Ot 427.31 ATRIAL FIBRILLATION 07/03/2014 CHAR SHIRLEY FACC, AGNIESZKA FACP CCDS Ot V58.61 ANTICOAGULANTS,LT,CURRENT USE 07/19/2014 SUKHJINDER SHIRLEY, CHARLEY Cavazos Ot 593.9 RENAL URETERAL DIS NOS 07/19/2014 SUKHJINDER SHIRLEY, CHARLEY Cavazos Ot 787.91 DIARRHEA 07/19/2014 CHARLEY SLAUGHTER MD Ot V58.61 ANTICOAGULANTS,LT,CURRENT USE 07/24/2014 CHAR SHIRLEY FACC, ALI FACP CCDS Ot 427.31 07/24/2014 CHAR SHIRLEY FACC, ALI FACP CCDS Ot V58.61 07/25/2014 CHAR SHIRLEY FACC, ALI FACP CCDS Ot 427.31 07/25/2014 CHAR SHIRLEY FACC, ALI FACP CCDS Ot V58.61 07/26/2014 CHAR SHIRLEY FACC, ALI FACP CCDS Ot 427.31 07/26/2014 CHAR SHIRLEY FACJanay, AGNIESZKA FACP CCDS Ot V58.61 07/26/2014 CHAR [...] V58.69 OTH MED,LT,CURRENT USE 08/30/2014 CHAR SHIRLEY FACJanay, ALI FACP CCDS Ot 427.31 08/30/2014 CHAR SHIRLEY FACC, ALI FACP CCDS Ot V58.61 10/22/2014 CHAR SHIRLEY FACC, ALI FACP CCDS Ot 427.31 ATRIAL FIBRILLATION 10/22/2014 CHAR BURGERC, ALI FACP CCDS Ot V58.61 ANTICOAGULANTS,LT,CURRENT USE 12/27/2014 CHAR SHIRLEY FACC, AGNIESZKA FACP CCDS Ot 427.31 12/27/2014 CHAR SHIRLEY FACC, AGNIESZKA FACP CCDS Ot V58.61 01/02/2015 BAIMA, WILLIAMS L ANIMAL PHYSIOLOGY TEACHER Ot 272.4 01/02/2015 BAIMA, WILLIAMS L ANIMAL PHYSIOLOGY TEACHER Ot 401.9 01/02/2015 BAIMA, WILLIAMS L ANIMAL PHYSIOLOGY TEACHER Ot 414.00 01/02/2015 BAIMA, WILLIAMS L ANIMAL PHYSIOLOGY TEACHER Ot 427.31 01/19/2015 BAIMA, WILLIAMS L ANIMAL PHYSIOLOGY TEACHER Ot 272.4 01/19/2015 BAIMA, WILLIAMS L ANIMAL PHYSIOLOGY TEACHER Ot 401.9 01/19/2015 BAIMA, WILLIAMS L ANIMAL PHYSIOLOGY TEACHER Ot 414.9 01/19/2015 BAIMA, WILLIAMS L ANIMAL PHYSIOLOGY TEACHER Ot 427.31 02/01/2015 CHAR SHIRLEY FACC, AGNIESZKA FACP CCDS Ot 427.31 ATRIAL FIBRILLATION 02/01/2015 AGNIESZKA PARDO MD, FACCP CCDS Ot V58.61 ANTICOAGULANTS,LT,CURRENT USE 02/06/2015 CHAR SHIRLEY FACC, AGNIESZKA FACP CCDS Ot 427.31 02/06/2015 AGNIESZKA PARDO MD, FACC FACP CCDS Ot V58.61 02/12/2015 ROGELIO CORTES [...] MD Ot V58.69 OTH MED,LT,CURRENT USE 03/22/2015 AGNIESZKA PARDO MD, FACC FACP CCDS Ot 427.31 03/22/2015 CHAR MD FACC, ALI FACP CCDS Ot V58.61 03/28/2015 MOI SHIRLEY, JAZIEL R Ot 780.79 04/20/2015 MOI SHIRLEY, JAZIEL R Ot 429.3 04/20/2015 MOI SHIRLEY, JZAIEL R Ot 786.2 05/06/2015 CHAR SHIRLEY FACC, ALI FACP CCDS Ot 427.31 ATRIAL FIBRILLATION 05/06/2015 CHAR SHIRLEY FACC, ALI FACP CCDS Ot V58.61 ANTICOAGULANTS,LT,CURRENT USE 05/15/2015 MOI SHIRLEY, JAZIEL R Ot 794.4 05/23/2015 SEBASTIAN SHIRLEY, ROGELIO K Ot 272.0 05/23/2015 SEBASTIAN SHIRLEY, ROGELIO Aristeo Ot 280.9 05/23/2015 SEBASTIAN SHIRLEY, ROGELIO K Ot 287.5 05/23/2015 SEBASTIAN SHIRLEY, ROGELIO K Ot 403.90 05/23/2015 SEBASTIAN SHIRLEY, ROGELIO K Ot 414.00 05/23/2015 SEBASTIAN SHIRLEY, ROGELIO K Ot 427.31 05/23/2015 SEBASTIAN SHIRLEY, ROGELIO K Ot 585.9 05/23/2015 SEBASTIAN SHIRLEY, ROGELIO K Ot V45.81 05/23/2015 SEBASTIAN SHIRLEY, ROGELIO K Ot V58.61 05/23/2015 SEBASTIAN SHIRLEY, ROGELIO K Ot V58.69 05/28/2015 CHAR SHIRLEY FACC, ALI FACP CCDS Ot 427.31 05/28/2015 CHAR SHIRLEY FACC, ALI FACP CCDS Ot V58.61 05/28/2015 MOI SHIRLEY, JAZIEL R Ot 429.3 05/28/2015 MOI SHIRLEY, JAZIEL R Ot 786.2 05/29/2015 CHAR SHIRLEY FACC, ALI FACP CCDS Ot 427.31 05/29/2015 CHRA SHIRLEY FACC, ALI FACP CCDS Ot V58.61 05/30/2015 CHAR SHIRLEY FACC, ALI FACP CCDS Ot 427.31 ATRIAL FIBRILLATION 05/30/2015 CHAR SHIRLEY FACC, ALI FACP CCDS Ot V58.61 ANTICOAGULANTS,LT,CURRENT USE 06/13/2015 SEBASTIAN SHIRLEY, ROGELIO Aristeo Ot 272.0 06/13/2015 SEBASTIAN SHIRLEY, ROGELIO K Ot 280.9 06/13/2015 SEBASTIAN SHIRLEY, ROGELIO Aristeo Ot 287.5 06/13/2015 SEBASTIAN SHIRLEY, ROGELIO K Ot 403.90 06/13/2015 SEBASTIAN SHIRLEY, ROGELIO K Ot 414.00 06/13/2015 SEBASTIAN SHIRLEY, ROGELIO K Ot 427.31 06/13/2015 SEBASTIAN SHIRLEY, ROGELIO K Ot 585.9 06/13/2015 SEBASTIAN SHIRLEY, ROGELIO K Ot V45.81 06/13/2015 SEBASTIAN SHIRLEY, ROGELIO K Ot V58.61 06/13/2015 SEBASTIAN SHIRLEY, ROGELIO K Ot V58.69 07/16/2015 CHAR SHIRLEY FACC, ALI FACP CCDS Ot 427.31 07/16/2015 CHAR SHIRLEY FACC, ALI FACP CCDS Ot V58.61 07/20/2015 SEBASTIAN SHIRLEY, ROGELIO K Ot 272.0 07/20/2015 SEBASTIAN SHIRLEY, ROGELIO K Ot 280.9 07/20/2015 SEBASTIAN SHIRLEY, ROGELIO K Ot 287.5 07/20/2015 SEBASTIAN SHIRLEY, ROGELIO K Ot 403.90 07/20/2015 SEBASTIAN SHIRLEY, ROGELIO K Ot 414.00 07/20/2015 SEBASTIAN SHIRLEY, ROGELIO K Ot 427.31 07/20/2015 SEBASTIAN SHIRLEY, ROGELIO Aristeo Ot 585.9 07/20/2015 SEBASTIAN SHIRLEY, ROGELIO Aristeo Ot V45.81 07/20/2015 SEBASTIAN SHIRLEY, ROGELIO K Ot V58.61 07/20/2015 SEBASTIAN SHIRLEY, ROGELIO K Ot V58.69 08/08/2015 SEBASTIAN SHIRLEY, ROGELIO K Ot D50.9 08/08/2015 SEBASTIAN SHIRLEY, ROGELIO K Ot D69.6 08/08/2015 SEBASTIAN SHIRLEY, ROGELIO K Ot E78.5 08/08/2015 SEBASTIAN SHIRLEY, ROGELIO K Ot I12.9 08/08/2015 SEBASTIAN SHIRLEY, ROGELIO Alberts Ot I25.10 08/08/2015 SEBASTIAN SHIRLEY, ROGELIO K Ot I48.91 08/08/2015 SEBASTIAN SHIRLEY, ROGELIO K Ot N18.9 08/08/2015 SEBASTIAN SHIRLEY, ROGELIO K Ot Z79.01 08/08/2015 SEBASTIAN SHIRLEY, ROGELIO K Ot Z79.899 08/23/2015 CHAR SHIRLEY FACC, ALI FACP CCDS Ot I48.91 08/23/2015 CHAR SHIRLEY FACC, ALI FACP CCDS Ot Z51.81 08/23/2015 CHAR SHIRLEY FACC, ALI FACP CCDS Ot Z79.01 09/12/2015 SEBASTIAN SHIRLEY, ROGELIO Alberts Ot D50.9 IRON DEFICIENCY ANEMIA, UNSPECIFIED 09/12/2015 SEBASTIAN SHIRLEY, ROGELIO Alberts Ot D69.6 THROMBOCYTOPENIA, UNSPECIFIED 09/12/2015 SEBASTIAN SHIRLEY ROGELIO Aristeo Ot E78.5 HYPERLIPIDEMIA, UNSPECIFIED 09/12/2015 ROGELIO CORTES MD Ot I12.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 09/12/2015 SEBASTIAN SHIRLEY ROGELIO Aristeo Ot I25.10 ATHSCL HEART DISEASE OF [place] CORONARY 09/12/2015 ROGELIO CORTES MD Ot I48.91 UNSPECIFIED ATRIAL FIBRILLATION 09/12/2015 ROGELIO CORTES MD Ot N18.9 CHRONIC KIDNEY DISEASE, UNSPECIFIED 09/12/2015 SEBASTIAN SHIRLEY ROGELIO Aristeo Ot Z79.01 SHELTER (CURRENT) USE OF ANTICOAGULANT 09/12/2015 ROGELIO CORTES MD Ot Z79.899 OTHER HEALTHCARE PROF (CURRENT) DRUG THERAPY 10/10/2015 CHAR SHIRLEY FACC, ALI FACP CCDS Ot I48.91 UNSPECIFIED ATRIAL FIBRILLATION 10/10/2015 CHAR SHIRLEY FACC, ALI FACP CCDS Ot Z51.81 ENCOUNTER FOR THERAPEUTIC DRUG LEVEL MON 10/10/2015 CHAR SHIRLEY FACC ALI FACP CCDS Ot Z79.01 SHELTER (CURRENT) USE OF ANTICOAGULANT 10/30/2015 Ot 272.4 [...] 786.2 10/30/2015 Ot V45.01 10/30/2015 CHAR SHIRLEY FACC ALI FACP CCDS Ot 427.31 10/30/2015 CHAR SHIRLEY FACC ALI FACP CCDS Ot 729.81 10/30/2015 CHAR SHIRLEY [facility], ALI FACP CCDS Ot 786.09 10/30/2015 CHAR SHIRLEY [facility], ALI FACP CCDS Ot V58.69 10/30/2015 BAIMA, WILLIAMS L ANIMAL PHYSIOLOGY TEACHER Ot 790.6 10/30/2015 BAIMA, WILLIAMS L ANIMAL PHYSIOLOGY TEACHER Ot 790.6 10/30/2015 BAIMA, WILLIAMS L ANIMAL PHYSIOLOGY TEACHER Ot 428.0 10/30/2015 BAIMA, WILLIAMS L ANIMAL PHYSIOLOGY TEACHER Ot 428.0 10/30/2015 CHAR SHIRLEY [facility], ALI FACP CCDS Ot 414.00 10/30/2015 CHAR SHIRLEY [facility] FACP CCDS Ot 429.3 10/30/2015 CHAR SHIRLEY [facility], ALI FACP CCDS Ot 786.59 10/30/2015 CHAR SHIRLEY [facility] FACP CCDS Ot V45.81 10/30/2015 BAIMA, WILLIAMS L ANIMAL PHYSIOLOGY TEACHER Ot 272.4 10/30/2015 Ot 272.0 10/30/2015 Ot 278.00 10/30/2015 Ot 287.5 10/30/2015 Ot 403.90 10/30/2015 Ot 414.00 10/30/2015 Ot 427.31 10/30/2015 Ot 447.9 10/30/2015 Ot 585.9 10/30/2015 Ot 780.79 10/30/2015 Ot V12.61 10/30/2015 Ot V58.61 10/30/2015 BAIMA, WILLIAMS L ANIMAL PHYSIOLOGY TEACHER Ot 272.4 10/30/2015 BAIMA, WILLIAMS L ANIMAL PHYSIOLOGY TEACHER Ot 401.9 10/30/2015 BAIMA, WILLIAMS L ANIMAL PHYSIOLOGY TEACHER Ot 414.00 10/30/2015 BAIMA, WILLIAMS L ANIMAL PHYSIOLOGY TEACHER Ot 427.31 10/30/2015 BAIMA, WILLIAMS L ANIMAL PHYSIOLOGY TEACHER Ot 272.4 10/30/2015 BAIMA, WILLIAMS L ANIMAL PHYSIOLOGY TEACHER Ot 401.9 10/30/2015 BAIMA, WILLIAMS L ANIMAL PHYSIOLOGY TEACHER Ot 414.9 10/30/2015 BAIMA, WILLIAMS L ANIMAL PHYSIOLOGY TEACHER Ot 427.31 10/30/2015 MOI SHIRLEY, JAZIEL R Ot 780.79 10/30/2015 MOI SHIRLEY, JAZIEL R Ot 429.3 10/30/2015 MOI SHIRLEY, JAZIEL R Ot 786.2 10/30/2015 MOI SHIRLEY, JAZIEL R Ot 794.4 10/30/2015 SEBASTIAN SHIRLEY, ROGELIO Alberts Ot D50.9 10/30/2015 SEBASTIAN SHIRLEY, ROGELIO K Ot D69.6 10/30/2015 SEBASTIAN SHIRLEY, ROGELIO Alberts Ot E78.5 10/30/2015 SEBASTIAN SHIRLEY, ROGELIO Alberts Ot I12.9 10/30/2015 SEBASTIAN SHIRLEY, ROGELIO Alberts Ot I25.10 10/30/2015 SEBASTIAN SHIRLEY, ROGELIO Alberts Ot I48.91 10/30/2015 SEBASTIAN SHIRLEY, ROGELIO Alberts Ot N18.9 10/30/2015 SEBASTIAN SHIRLEY, ROGELIO Alberts Ot Z79.01 10/30/2015 SEBASTIAN SHIRLEY, ROGELIO Alberts Ot Z79.899 10/30/2015 CHAR SHIRLEY FACC, ALI FACP CCDS Ot I48.91 10/30/2015 CHAR SHIRLEY FACC, ALI FACP CCDS Ot Z51.81 10/30/2015 CHAR SHIRLEY FACC, ALI FACP CCDS Ot Z79.01 10/30/2015 CHAR SHIRLEY FACC, ALI FACP CCDS Ot I48.91 10/30/2015 CHAR SHIRLEY FACC, ALI FACP CCDS Ot Z51.81 10/30/2015 CHAR SHIRLEY FACC, ALI FACP CCDS Ot Z79.01 10/30/2015 CHAR SHIRLEY FACC, ALI FACP CCDS Ot I48.91 10/30/2015 CHAR SHIRLEY FACC, ALI FACP CCDS Ot Z51.81 10/30/2015 CHAR SHIRLEY FACC, ALI FACP CCDS Ot Z79.01 10/30/2015 CHAR SHIRLEY FACC, ALI FACP CCDS Ot I48.91 10/30/2015 CHAR SHIRLEY FACC, ALI FACP CCDS Ot Z51.81 10/30/2015 CHAR SHIRLEY FACC, ALI FACP CCDS Ot Z79.01 11/01/2015 MOI SHIRLEY, JAZIEL R Ot D69.6 THROMBOCYTOPENIA, UNSPECIFIED 11/01/2015 MOI SHIRLEY, JAZIEL R Ot E78.5 HYPERLIPIDEMIA, UNSPECIFIED 11/01/2015 MOI SHIRLEY, JAZIEL R Ot I12.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 11/01/2015 MOI SHIRLEY, AJZIEL R Ot I25.10 ATHSCL HEART DISEASE OF [place] CORONARY 11/01/2015 MOI SHIRLEY, JAZIEL R Ot I48.0 PAROXYSMAL ATRIAL FIBRILLATION 11/01/2015 MOI SHIRLEY, JAZIEL R Ot I48.2 CHRONIC ATRIAL FIBRILLATION 11/01/2015 MOI SHIRLEY, JAZIEL R Ot 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 11/01/2015 MOI SHIRLEY, JAZIEL R Ot N18.2 CHRONIC KIDNEY DISEASE, STAGE 2 (MILD) 11/01/2015 MOI SHIRLEY, JAZIEL R Ot R07.89 OTHER CHEST PAIN 11/01/2015 MOI SHIRLEY, JAZIEL R Ot Z79.01 HEALTHCARE PROF (CURRENT) USE OF ANTICOAGULANT 11/01/2015 MOI SHIRLEY, [...] R Ot Z51.81 12/05/2015 CHAR SHIRLEY FACC, ALI FACP CCDS Ot I48.91 12/05/2015 CHAR SHIRLEY FACC, ALI FACP CCDS Ot Z51.81 12/05/2015 CHAR SHIRLEY FACC, ALI FACP CCDS Ot Z79.01 12/21/2015 CHAR SHIRLEY FACC, AGNIESZKA BURGERP CCDS Ot I48.91 UNSPECIFIED ATRIAL FIBRILLATION 12/21/2015 CHAR SHIRLEY FACC, AGNIESZKA BURGERP CCDS Ot Z51.81 ENCOUNTER FOR THERAPEUTIC DRUG LEVEL MON 12/21/2015 AGNIESZKA PARDO MD, FACCP CCDS Ot Z79.01 HEALTHCARE PROF (CURRENT) USE OF ANTICOAGULANT 01/04/2016 AGNIESZKA PARDO MD, FACCP CCDS Ot I10 ESSENTIAL (PRIMARY) HYPERTENSION 01/04/2016 CHAR SHIRLEY FACC, AGNIESZKA BURGERP CCDS Ot I10 ESSENTIAL (PRIMARY) HYPERTENSION 01/04/2016 HUMA SHELDON MD Ot S80.12XA CONTUSION OF LEFT LOWER LEG, INITIAL ENC 01/04/2016 HUMA SHELDON MD, Ot V58.3XXA [facility]2016 HUMA SHELDON MD Ot Y99.8 OTHER EXTERNAL CAUSE STATUS 01/04/2016 HUMA SHELDON MD Ot Z79.01 HEALTHCARE PROF (CURRENT) USE OF ANTICOAGULANT 01/04/2016 HUMA SHELDON MD Ot Z95.0 PRESENCE OF CARDIAC PACEMAKER 01/06/2016 HUMA SHELDON MD Ot S80.12XA CONTUSION OF LEFT LOWER LEG, INITIAL ENC 01/06/2016 HUMA SHELDON MD Ot V58.3XXA OCCUP OF PK-UP/VAN INJ IN NONCN [facility] 01/06/2016 HUMA SHELDON MD Ot Y99.8 OTHER EXTERNAL CAUSE STATUS 01/06/2016 HUMA SHELDON MD Ot Z79.01 SHELTER (CURRENT) USE OF ANTICOAGULANT 01/06/2016 HUMA SHELDON MD Ot Z95.0 PRESENCE OF CARDIAC PACEMAKER 01/07/2016 CHAR SHIRLEY FACC, AGNIESZKA BURGERP CCDS Ot D69.6 THROMBOCYTOPENIA, UNSPECIFIED 01/07/2016 AGNIESZKA PARDO MD, FACCP CCDS Ot E78.0 PURE HYPERCHOLESTEROLEMIA 01/07/2016 AGNIESZKA PARDO MD, FACCP CCDS Ot I12.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 01/07/2016 AGNIESZKA PARDO MD, FACCP CCDS Ot I25.10 ATHSCL HEART DISEASE OF [place] CORONARY 01/07/2016 CHAR SHIRLEY FACC, AGNIESZKA FACP CCDS Ot I34.0 NONRHEUMATIC MITRAL (VALVE) INSUFFICIENC 01/07/2016 CHAR SHIRLEY FACC, ALI FACP CCDS Ot I48.0 PAROXYSMAL ATRIAL FIBRILLATION 01/07/2016 CHAR SHIRLEY FACC, ALI FACP CCDS Ot 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 01/07/2016 CHAR SHIRLEY FACC, AGNIESZKA FACP CCDS Ot N18.2 CHRONIC KIDNEY DISEASE, STAGE 2 (MILD) 01/10/2016 HUMA SHELDON MD Ot S80.12XA CONTUSION OF LEFT LOWER LEG, INITIAL ENC 01/10/2016 HUMA SHELDON MD Ot V58.3XXA OCCUP OF PK-UP/VAN INJ IN NONCLSN TRNSP 01/10/2016 HUMA SHELDON MD Ot Y99.8 OTHER EXTERNAL CAUSE STATUS 01/10/2016 HUMA SHELDON MD Ot Z79.01 HEALTHCARE PROF (CURRENT) USE OF ANTICOAGULANT 01/10/2016 HUMA SHELDON MD Ot Z95.0 PRESENCE OF CARDIAC PACEMAKER 01/24/2016 CHAR SHIRLEY FACC, AGNIESZKA FACP CCDS Ot D69.6 THROMBOCYTOPENIA, UNSPECIFIED 01/24/2016 AGNIESZKA PARDO MD, FACC FACP CCDS Ot E78.0 PURE HYPERCHOLESTEROLEMIA 01/24/2016 CHAR SHIRLEY FACC, ALI FACP CCDS Ot I12.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 01/24/2016 CHAR SHIRLEY FACC, ALI FACP CCDS Ot I25.10 ATHSCL HEART DISEASE OF [place] CORONARY 01/24/2016 CHAR SHIRLEY FACC, AGNIESZKA FACP CCDS Ot I34.0 NONRHEUMATIC MITRAL (VALVE) INSUFFICIENC 01/24/2016 CHAR SHIRLEY FACC, ALI FACP CCDS Ot I48.0 PAROXYSMAL ATRIAL FIBRILLATION 01/24/2016 CHAR SHIRLEY FACC, ALI FACP CCDS Ot 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 01/24/2016 CHAR SHIRLEY FACC, ALI FACP CCDS Ot N18.2 CHRONIC KIDNEY DISEASE, STAGE 2 (MILD) 01/28/2016 CHAR SHIRLEY FACC, AGNIESZKA FACP CCDS Ot I48.91 UNSPECIFIED ATRIAL FIBRILLATION 01/28/2016 CHAR MD FACC, ALI FACP CCDS Ot Z51.81 ENCOUNTER FOR THERAPEUTIC DRUG LEVEL MON 01/28/2016 CHAR SHIRLEY FACC, ALI FACP CCDS Ot Z79.01 SHELTER (CURRENT) USE OF ANTICOAGULANT 04/11/2016 CHAR SHIRLEY FACC, ALI FACP CCDS Ot I48.91 UNSPECIFIED ATRIAL FIBRILLATION 04/11/2016 CHAR SHIRLEY FACC, ALI FACP CCDS Ot Z51.81 ENCOUNTER FOR THERAPEUTIC DRUG LEVEL MON 04/11/2016 CHAR SHIRLEY FACC, ALI FACP CCDS Ot Z79.01 SHELTER (CURRENT) USE OF ANTICOAGULANT 04/29/2016 CHAR SHIRLEY FACC, ALI FACP CCDS Ot I48.91 UNSPECIFIED ATRIAL FIBRILLATION 04/29/2016 CHAR SHIRLEY FACC, ALI FACP CCDS Ot Z51.81 ENCOUNTER FOR THERAPEUTIC DRUG LEVEL MON 04/29/2016 CHAR SHIRLEY FACC, ALI FACP CCDS Ot Z79.01 SHELTER (CURRENT) USE OF ANTICOAGULANT 05/07/2016 CHAR BURGERC, ALI FACP CCDS Ot I48.91 UNSPECIFIED ATRIAL FIBRILLATION 05/07/2016 CHAR SHIRLEY FACC, ALI FACP CCDS Ot Z51.81 ENCOUNTER FOR THERAPEUTIC DRUG LEVEL MON 05/07/2016 CHAR SHIRLEY FACC, ALI FACP CCDS Ot Z79.01 SHELTER (CURRENT) USE OF ANTICOAGULANT 06/09/2016 CHAR SHIRLEY FACC, ALI FACP CCDS Ot I48.91 UNSPECIFIED ATRIAL FIBRILLATION 06/09/2016 CHAR SHIRLEY FACC, ALI FACP CCDS Ot Z51.81 ENCOUNTER FOR THERAPEUTIC DRUG LEVEL MON 06/09/2016 CHAR SHIRLEY FACC, ALI FACP CCDS Ot Z79.01 SHELTER (CURRENT) USE OF ANTICOAGULANT 06/13/2016 ROGELIO CORTES MD Ot D50.9 IRON DEFICIENCY ANEMIA, UNSPECIFIED 06/13/2016 ROGELIO CORTES MD Ot D69.6 THROMBOCYTOPENIA, UNSPECIFIED 06/13/2016 ROGELIO CORTES MD Ot E78.5 HYPERLIPIDEMIA, UNSPECIFIED 06/13/2016 ROGELIO CORTES MD Ot I12.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 06/13/2016 ROGELIO CORTES MD Ot I25.10 ATHSCL HEART DISEASE OF [place] CORONARY 06/13/2016 ROGELIO CORTES MD Ot I48.91 UNSPECIFIED ATRIAL FIBRILLATION 06/13/2016 ROGELIO CORTES MD Ot N18.9 CHRONIC KIDNEY DISEASE, UNSPECIFIED 06/13/2016 ROGELIO CORTES MD Ot Z79.01 SHELTER (CURRENT) USE OF ANTICOAGULANT 06/13/2016 ROGELIO CORTES MD, Ot Z79.899 OTHER HEALTHCARE PROF (CURRENT) DRUG THERAPY 07/22/2016 ROGELIO CORTES MD, Ot D50.9 IRON DEFICIENCY ANEMIA, UNSPECIFIED 07/22/2016 ROGELIO CORTES MD Ot D69.6 THROMBOCYTOPENIA, UNSPECIFIED 07/22/2016 ROGELIO CORTES MD Ot E78.5 HYPERLIPIDEMIA, UNSPECIFIED 07/22/2016 ROGELIO CORTES MD Ot I12.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 07/22/2016 ROGELIO CORTES MD Ot I25.10 ATHSCL HEART DISEASE OF [place] CORONARY 07/22/2016 ROGELIO CORTES MD, Ot I48.91 UNSPECIFIED ATRIAL FIBRILLATION 07/22/2016 ROGELIO CORTES MD, Ot N18.9 CHRONIC KIDNEY DISEASE, UNSPECIFIED 07/22/2016 ROGELIO CORTSE MD Ot Z79.01 HEALTHCARE PROF (CURRENT) USE OF ANTICOAGULANT 07/22/2016 ROGELIO CORTES MD Ot Z79.899 OTHER HEALTHCARE PROF (CURRENT) DRUG THERAPY 08/05/2016 CHAR SHIRLEY FAC, ALI FACP CCDS Ot I48.91 UNSPECIFIED ATRIAL FIBRILLATION 08/05/2016 CHAR SHIRLEY FACC, ALI FACP CCDS Ot Z51.81 ENCOUNTER FOR THERAPEUTIC DRUG LEVEL MON 08/05/2016 CHAR SHIRLEY FACC, ALI FACP CCDS Ot Z79.01 HEALTHCARE PROF (CURRENT) USE OF ANTICOAGULANT 09/10/2016 ROGELIO CORTES MD, Ot D50.9 IRON DEFICIENCY ANEMIA, UNSPECIFIED 09/10/2016 ROGELIO CORTES MD Ot D69.6 THROMBOCYTOPENIA, UNSPECIFIED 09/10/2016 ROGELIO CORTES MD Ot E78.5 HYPERLIPIDEMIA, UNSPECIFIED 09/10/2016 ROGELIO CORTES MD Ot I12.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 09/10/2016 ROGELIO CORTES MD Ot I25.10 ATHSCL HEART DISEASE OF [place] CORONARY 09/10/2016 ROGELIO CORTES MD Ot I48.91 UNSPECIFIED ATRIAL FIBRILLATION 09/10/2016 ROGELIO CORTES MD Ot N18.9 CHRONIC KIDNEY DISEASE, UNSPECIFIED 09/10/2016 ROGELIO CORTES MD Ot Z79.01 HEALTHCARE PROF (CURRENT) USE OF ANTICOAGULANT 09/10/2016 ROGELIO CORTES MD, Ot Z79.899 OTHER SHELTER (CURRENT) DRUG THERAPY 09/11/2016 ROGELIO CORTES MD Ot D50.9 IRON DEFICIENCY ANEMIA, UNSPECIFIED 09/11/2016 ROGELIO CORTES MD Ot D69.6 THROMBOCYTOPENIA, UNSPECIFIED 09/11/2016 ROGELIO CORTES MD Ot E78.5 HYPERLIPIDEMIA, UNSPECIFIED 09/11/2016 ROGELIO CORTES MD Ot I12.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 09/11/2016 ROGELIO CORTES MD Ot I25.10 ATHSCL HEART DISEASE OF [place] CORONARY 09/11/2016 ROGELIO CORTES MD Ot I48.91 UNSPECIFIED ATRIAL FIBRILLATION 09/11/2016 ROGELIO CORTES MD Ot N18.9 CHRONIC KIDNEY DISEASE, UNSPECIFIED 09/11/2016 ROGELIO CORTES MD Ot Z79.01 SHELTER (CURRENT) USE OF ANTICOAGULANT 09/11/2016 ROGELIO CORTES MD Ot Z79.899 OTHER HEALTHCARE PROF (CURRENT) DRUG THERAPY 10/15/2016 CHAR SHIRLEY FACC, AGNIESZKA FACP CCDS Ot I48.91 UNSPECIFIED ATRIAL FIBRILLATION 10/15/2016 CHAR SHIRLEY FACC, ALI FACP CCDS Ot Z51.81 ENCOUNTER FOR THERAPEUTIC DRUG LEVEL MON 10/15/2016 CHAR SHIRLEY FACC, ALI FACP CCDS Ot Z79.01 SHELTER (CURRENT) USE OF ANTICOAGULANT 10/16/2016 CHAR SHIRLEY FACC, AGNIESZKA FACP CCDS Ot I48.91 UNSPECIFIED ATRIAL FIBRILLATION 10/16/2016 CHRA SHIRLEY FACC, ALI FACP CCDS Ot Z51.81 ENCOUNTER FOR THERAPEUTIC DRUG LEVEL MON 10/16/2016 CHAR SHIRLEY FACC ALI FACP CCDS Ot Z79.01 SHELTER (CURRENT) USE OF ANTICOAGULANT 11/03/2016 CHAR SHIRLEY FACC ALI FACP CCDS Ot I48.91 UNSPECIFIED ATRIAL FIBRILLATION 11/03/2016 CHAR SHIRLEY FACC ALI FACP CCDS Ot Z51.81 ENCOUNTER FOR THERAPEUTIC DRUG LEVEL MON 11/03/2016 CHAR SHIRLEY FACC ALI FACP CCDS Ot Z79.01 SHELTER (CURRENT) USE OF ANTICOAGULANT 12/10/2016 ROGELIO CORTES MD Ot D50.9 IRON DEFICIENCY ANEMIA, UNSPECIFIED 12/10/2016 ROGELIO CORTES MD Ot D69.6 THROMBOCYTOPENIA, UNSPECIFIED 12/10/2016 ROGELIO CORTES MD Ot E78.5 HYPERLIPIDEMIA, UNSPECIFIED 12/10/2016 ROGELIO CORTES MD Ot I12.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 12/10/2016 ROGELIO CORTES MD Ot I25.10 ATHSCL HEART DISEASE OF [place] CORONARY 12/10/2016 ROGELIO CORTES MD Ot I48.91 UNSPECIFIED ATRIAL FIBRILLATION 12/10/2016 ROGELIO CORTES MD Ot N18.9 CHRONIC KIDNEY DISEASE, UNSPECIFIED 12/10/2016 ROGELIO CORTES MD Ot Z79.01 SHELTER (CURRENT) USE OF ANTICOAGULANT 12/10/2016 ROGELIO CORTES MD Ot Z79.899 OTHER SHELTER (CURRENT) DRUG THERAPY 12/11/2016 ROGELIO CORTES MD Ot D50.9 IRON DEFICIENCY ANEMIA, UNSPECIFIED 12/11/2016 ROGELIO CORTES MD Ot D69.6 THROMBOCYTOPENIA, UNSPECIFIED 12/11/2016 ROGELIO CORTES MD Ot E78.5 HYPERLIPIDEMIA, UNSPECIFIED 12/11/2016 ROGELIO CORTES MD Ot I12.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 12/11/2016 ROGELIO CORTES MD Ot I25.10 ATHSCL HEART DISEASE OF [place] CORONARY 12/11/2016 ROGELIO CORTES MD Ot I48.91 UNSPECIFIED ATRIAL FIBRILLATION 12/11/2016 ROGELIO CORTES MD Ot N18.9 CHRONIC KIDNEY DISEASE, UNSPECIFIED 12/11/2016 ROGELIO CORTES MD Ot Z79.01 HEALTHCARE PROF (CURRENT) USE OF ANTICOAGULANT 12/11/2016 ROGELIO CORTES MD Ot Z79.899 OTHER SHELTER (CURRENT) DRUG THERAPY 01/13/2017 CHAR SHIRLEY FACC, AGNIESZKA FACP CCDS Ot I48.91 UNSPECIFIED ATRIAL FIBRILLATION 01/13/2017 CHAR SHIRLEY FACC, ALI FACP CCDS Ot Z79.01 SHELTER (CURRENT) USE OF ANTICOAGULANT 01/14/2017 CHAR SHIRLEY FACC, ALI FACP CCDS Ot I48.91 UNSPECIFIED ATRIAL FIBRILLATION 01/14/2017 CHAR SHIRLEY FACC, ALI FACP CCDS Ot Z79.01 HEALTHCARE PROF (CURRENT) USE OF ANTICOAGULANT 01/14/2017 ROGELIO CORTES MD Ot D50.9 IRON DEFICIENCY ANEMIA, UNSPECIFIED 01/14/2017 ROGELIO CORTES MD Ot D69.6 THROMBOCYTOPENIA, UNSPECIFIED 01/14/2017 ROGELIO CORTES MD Ot E78.5 HYPERLIPIDEMIA, UNSPECIFIED 01/14/2017 ROGELIO CORTES MD Ot I12.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 01/14/2017 ROGELIO CORTES MD Ot I25.10 ATHSCL HEART DISEASE OF [place] CORONARY 01/14/2017 ROGELIO CORTES MD Ot I48.91 UNSPECIFIED ATRIAL FIBRILLATION 01/14/2017 ROGELIO CORTES MD Ot N18.9 CHRONIC KIDNEY DISEASE, UNSPECIFIED 01/14/2017 ROGELIO CORTES MD Ot Z79.01 SHELTER (CURRENT) USE OF ANTICOAGULANT 01/14/2017 ROGELIO CORTES MD Ot Z79.899 OTHER HEALTHCARE PROF (CURRENT) DRUG THERAPY 01/14/2017 ROGELIO CORTES MD Ot D50.9 IRON DEFICIENCY ANEMIA, UNSPECIFIED 01/14/2017 ROGELIO CORTES MD Ot D69.6 THROMBOCYTOPENIA, UNSPECIFIED 01/14/2017 ROGELIO CORTES MD Ot E78.5 HYPERLIPIDEMIA, UNSPECIFIED 01/14/2017 ROGELIO CORTES MD Ot I12.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 01/14/2017 ROGELIO CORTES MD Ot I25.10 ATHSCL HEART DISEASE OF [place] CORONARY 01/14/2017 ROGELIO CORTES MD Ot I48.91 UNSPECIFIED ATRIAL FIBRILLATION 01/14/2017 ROGELIO CORTES MD Ot N18.9 CHRONIC KIDNEY DISEASE, UNSPECIFIED 01/14/2017 ROGELIO CORTES MD Ot Z79.01 HEALTHCARE PROF (CURRENT) USE OF ANTICOAGULANT 01/14/2017 ROGELIO CORTES MD Ot Z79.899 OTHER SHELTER (CURRENT) DRUG THERAPY 01/14/2017 ROGELIO CORTES MD Ot D50.9 IRON DEFICIENCY ANEMIA, UNSPECIFIED 01/14/2017 ROGELIO CORTES MD Ot D69.6 THROMBOCYTOPENIA, UNSPECIFIED 01/14/2017 ROGELIO CORTES MD Ot E78.5 HYPERLIPIDEMIA, UNSPECIFIED 01/14/2017 ROGELIO CORTES MD Ot I12.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 01/14/2017 ROGELIO CORTES MD Ot I25.10 ATHSCL HEART DISEASE OF [place] CORONARY 01/14/2017 ROGELIO CORTES MD Ot I48.91 UNSPECIFIED ATRIAL FIBRILLATION 01/14/2017 ROGELIO CORTES MD Ot N18.9 CHRONIC KIDNEY DISEASE, UNSPECIFIED 01/14/2017 ROGELIO CORTES MD Ot Z79.01 SHELTER (CURRENT) USE OF ANTICOAGULANT 01/14/2017 ROGELIO CORTES MD Ot Z79.899 OTHER HEALTHCARE PROF (CURRENT) DRUG THERAPY 03/10/2017 SEBASTIAN SHIRLEY, ROGELIO Alberts Ot D50.9 IRON DEFICIENCY ANEMIA, UNSPECIFIED 03/10/2017 SEBASTIAN SHIRLEY, ROGELIO Alberts Ot D69.6 THROMBOCYTOPENIA, UNSPECIFIED 03/10/2017 SEBASTIAN SHIRLEY, ROGELIO Alberts Ot E78.5 HYPERLIPIDEMIA, UNSPECIFIED 03/10/2017 SEBASTIAN SHIRLEY, ROGELIO Alberts Ot I12.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 03/10/2017 SEBASTIAN SHIRLEY, ROGELIO Alberts Ot I25.10 ATHSCL HEART DISEASE OF [place] CORONARY 03/10/2017 SEBASTIAN SHIRLEY, ROGELIO Alberts Ot I48.91 UNSPECIFIED ATRIAL FIBRILLATION 03/10/2017 SEBASTIAN SHIRLEY, ROGELIO Alberts Ot N18.9 CHRONIC KIDNEY DISEASE, UNSPECIFIED 03/10/2017 SEBASTIAN SHIRLEY, ROGELIO Alberts Ot Z79.01 SHELTER (CURRENT) USE OF ANTICOAGULANT 03/10/2017 SEBASTIAN SHIRLEY, ROGELIO Alberts Ot Z79.899 OTHER SHELTER (CURRENT) DRUG THERAPY 03/16/2017 BAIMA, WILLIAMS L ANIMAL PHYSIOLOGY TEACHER Ot D50.9 IRON DEFICIENCY ANEMIA, UNSPECIFIED 03/16/2017 BAIMA, WILLIAMS L ANIMAL PHYSIOLOGY TEACHER Ot D69.6 THROMBOCYTOPENIA, UNSPECIFIED 03/16/2017 BAIMA, WILLIAMS L ANIMAL PHYSIOLOGY TEACHER Ot E78.5 HYPERLIPIDEMIA, UNSPECIFIED 03/16/2017 BAIMA, WILLIAMS L ANIMAL PHYSIOLOGY TEACHER Ot I12.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 03/16/2017 BAIMA, WILLIAMS L ANIMAL PHYSIOLOGY TEACHER Ot I25.10 ATHSCL HEART DISEASE OF [place] CORONARY 03/16/2017 BAIMA, WILLIAMS L ANIMAL PHYSIOLOGY TEACHER Ot I48.91 UNSPECIFIED ATRIAL FIBRILLATION 03/16/2017 BAIMA, WILLIAMS L ANIMAL PHYSIOLOGY TEACHER Ot N18.9 CHRONIC KIDNEY DISEASE, UNSPECIFIED 03/16/2017 BAIMA, WILLIAMS L ANIMAL PHYSIOLOGY TEACHER Ot Z79.01 SHELTER (CURRENT) USE OF ANTICOAGULANT 03/16/2017 BAIMA, WILLIAMS L ANIMAL PHYSIOLOGY TEACHER Ot Z79.899 OTHER HEALTHCARE PROF (CURRENT) DRUG THERAPY 03/17/2017 BAIMA, WILLIAMS L ANIMAL PHYSIOLOGY TEACHER Ot D50.9 IRON DEFICIENCY ANEMIA, UNSPECIFIED 03/17/2017 BAIMA, WILLIAMS L ANIMAL PHYSIOLOGY TEACHER Ot D69.6 THROMBOCYTOPENIA, UNSPECIFIED 03/17/2017 BAIMA, WILLIAMS L ANIMAL PHYSIOLOGY TEACHER Ot E78.5 HYPERLIPIDEMIA, UNSPECIFIED 03/17/2017 BAIMA, WILLIAMS L ANIMAL PHYSIOLOGY TEACHER Ot I12.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 03/17/2017 BAIMA, WILLIAMS L ANIMAL PHYSIOLOGY TEACHER Ot I25.10 ATHSCL HEART DISEASE OF [place] CORONARY 03/17/2017 BAIMA, WILLIAMS L ANIMAL PHYSIOLOGY TEACHER Ot I48.91 UNSPECIFIED ATRIAL FIBRILLATION 03/17/2017 BAIMA, WILLIAMS L ANIMAL PHYSIOLOGY TEACHER Ot N18.9 CHRONIC KIDNEY DISEASE, UNSPECIFIED 03/17/2017 BAIMA, WILLIAMS L ANIMAL PHYSIOLOGY TEACHER Ot Z79.01 SHELTER (CURRENT) USE OF ANTICOAGULANT 03/17/2017 BAIMA, WILLIAMS L ANIMAL PHYSIOLOGY TEACHER Ot Z79.899 OTHER SHELTER (CURRENT) DRUG THERAPY 04/15/2017 BAIMA, WILLIAMS L ANIMAL PHYSIOLOGY TEACHER Ot D50.9 IRON DEFICIENCY ANEMIA, UNSPECIFIED 04/15/2017 BAIMA, WILLIAMS L ANIMAL PHYSIOLOGY TEACHER Ot D69.6 THROMBOCYTOPENIA, UNSPECIFIED 04/15/2017 BAIMA, WILLIAMS L ANIMAL PHYSIOLOGY TEACHER Ot E78.5 HYPERLIPIDEMIA, UNSPECIFIED 04/15/2017 BAIMA, WILLIAMS L ANIMAL PHYSIOLOGY TEACHER Ot I12.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 04/15/2017 BAIMA, WILLIAMS L ANIMAL PHYSIOLOGY TEACHER Ot I25.10 ATHSCL HEART DISEASE OF [place] CORONARY 04/15/2017 BAIMA, WILLIAMS L ANIMAL PHYSIOLOGY TEACHER Ot I48.91 UNSPECIFIED ATRIAL FIBRILLATION 04/15/2017 BAIMA, WILLIAMS L ANIMAL PHYSIOLOGY TEACHER Ot N18.9 CHRONIC KIDNEY DISEASE, UNSPECIFIED 04/15/2017 BAIMA, WILLIAMS L ANIMAL PHYSIOLOGY TEACHER Ot Z79.01 HEALTHCARE PROF (CURRENT) USE OF ANTICOAGULANT 04/15/2017 BAIMA, WILLIAMS L ANIMAL PHYSIOLOGY TEACHER Ot Z79.899 OTHER SHELTER (CURRENT) DRUG THERAPY 04/28/2017 BAIMA, WILLIAMS L ANIMAL PHYSIOLOGY TEACHER Ot D50.9 IRON DEFICIENCY ANEMIA, UNSPECIFIED 04/28/2017 BAIMA, WILLIAMS L ANIMAL PHYSIOLOGY TEACHER Ot D69.6 THROMBOCYTOPENIA, UNSPECIFIED 04/28/2017 BAIMA, WILLIAMS L ANIMAL PHYSIOLOGY TEACHER Ot E78.5 HYPERLIPIDEMIA, UNSPECIFIED 04/28/2017 BAIMA, WILLIAMS L ANIMAL PHYSIOLOGY TEACHER Ot I12.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 04/28/2017 BAIMA, WILLIAMS L ANIMAL PHYSIOLOGY TEACHER Ot I25.10 ATHSCL HEART DISEASE OF [place] CORONARY 04/28/2017 BAIMA, WILLIAMS L ANIMAL PHYSIOLOGY TEACHER Ot I48.91 UNSPECIFIED ATRIAL FIBRILLATION 04/28/2017 BAIMA, WILLIAMS L ANIMAL PHYSIOLOGY TEACHER Ot N18.9 CHRONIC KIDNEY DISEASE, UNSPECIFIED 04/28/2017 JEREMIAH CHAVEZHER L ANIMAL PHYSIOLOGY TEACHER Ot Z79.01 HEALTHCARE PROF (CURRENT) USE OF ANTICOAGULANT 04/28/2017 JEREMIAH CHAVEZHER L ANIMAL PHYSIOLOGY TEACHER Ot Z79.899 OTHER SHELTER (CURRENT) DRUG THERAPY 05/18/2017 Ot 786.50 CHEST PAIN NOS 05/18/2017 Ot 427.31 ATRIAL FIBRILLATION 05/18/2017 Ot V58.69 OTH MED,LT,CURRENT USE 05/18/2017 Ot 511.9 PLEURAL EFFUSION NOS [...] OTH MED,LT,CURRENT USE 05/18/2017 BAIMA, WILLIAMS L ANIMAL PHYSIOLOGY TEACHER Ot 790.6 ABN BLOOD CHEMISTRY NEC 05/18/2017 BAIMA, WILLIAMS L ANIMAL PHYSIOLOGY TEACHER Ot 790.6 ABN BLOOD CHEMISTRY NEC 05/18/2017 BAIMA, WILLIAMS L ANIMAL PHYSIOLOGY TEACHER Ot 428.0 CONGESTIVE HEART FAILURE NOS 05/18/2017 BAIMA, WILLIAMS L ANIMAL PHYSIOLOGY TEACHER Ot 428.0 CONGESTIVE HEART FAILURE NOS 05/18/2017 CHAR SHIRLEY FACC, ALI FACP CCDS Ot 414.00 CORON ATHEROSCLER NOS TYPE VESSEL, NATIV 05/18/2017 CHAR SHIRLEY FACC, ALI FACP CCDS Ot 429.3 CARDIOMEGALY 05/18/2017 CHAR SHIRLEY FACC, ALI FACP CCDS Ot 786.59 CHEST PAIN NEC 05/18/2017 CHAR SHIRLEY FACC, ALI FACP CCDS Ot 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 05/18/2017 BAIJEROME, WILLIAMS L ANIMAL PHYSIOLOGY TEACHER Ot 272.4 HYPERLIPIDEMIA NEC/NOS 05/18/2017 Ot 272.0 [...] V58.61 ANTICOAGULANTS,LT,CURRENT USE 05/18/2017 BAIMA, WILLIAMS L ANIMAL PHYSIOLOGY TEACHER Ot 272.4 HYPERLIPIDEMIA NEC/NOS 05/18/2017 BAIMA, WILLIAMS L ANIMAL PHYSIOLOGY TEACHER Ot 401.9 HYPERTENSION NOS 05/18/2017 BAIMA, WILLIAMS L ANIMAL PHYSIOLOGY TEACHER Ot 414.00 CORON ATHEROSCLER NOS TYPE VESSEL, NATIV 05/18/2017 BAIMA, WILLIAMS L ANIMAL PHYSIOLOGY TEACHER Ot 427.31 ATRIAL FIBRILLATION 05/18/2017 BAIMA, WILLIAMS L ANIMAL PHYSIOLOGY TEACHER Ot 272.4 HYPERLIPIDEMIA NEC/NOS 05/18/2017 BAIMA, WILLIAMS L ANIMAL PHYSIOLOGY TEACHER Ot 401.9 HYPERTENSION NOS 05/18/2017 BAIMA, WILLIAMS L ANIMAL PHYSIOLOGY TEACHER Ot 414.9 CHR ISCHEMIC HRT DIS NOS 05/18/2017 BAIMA, WILLIAMS L ANIMAL PHYSIOLOGY TEACHER Ot 427.31 ATRIAL FIBRILLATION 05/18/2017 MOI SHIRLEY, JAZIEL R Ot 780.79 OTH MALAISE FATIGUE 05/18/2017 MOI SHIRLEY, JAZIEL R Ot 429.3 CARDIOMEGALY 05/18/2017 MOI SHIRLEY, JAZIEL R Ot 786.2 COUGH 05/18/2017 MOI SHIRLEY, JAZIEL R Ot 794.4 ABN KIDNEY FUNCT STUDY 05/18/2017 MOI SHIRLEY, JAZIEL Curtis Ot I48.91 UNSPECIFIED ATRIAL FIBRILLATION 05/18/2017 MOI SHIRLEY, JAZIEL Curtis Ot Z51.81 ENCOUNTER FOR THERAPEUTIC DRUG LEVEL MON 05/18/2017 CHAR SHIRLEY FACC, AGNIESZKA BURGERP CCDS Ot D69.6 THROMBOCYTOPENIA, UNSPECIFIED 05/18/2017 CHAR SHIRLEY FACC, AGNIESZKA BURGERP CCDS Ot E78.0 PURE HYPERCHOLESTEROLEMIA 05/18/2017 CHAR SHIRLEY FACC, AGNIESZKA FACP CCDS Ot I12.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 05/18/2017 CHAR SHIRLEY FACC, ALI FACP CCDS Ot I25.10 ATHSCL HEART DISEASE OF [place] CORONARY 05/18/2017 CHAR SHIRLEY FACC, ALI FACP CCDS Ot I34.0 NONRHEUMATIC MITRAL (VALVE) INSUFFICIENC 05/18/2017 CHAR SHIRLEY FACC, ALI FACP CCDS Ot I48.0 PAROXYSMAL ATRIAL FIBRILLATION 05/18/2017 CHAR SHIRLEY FACC, ALI FACP CCDS Ot 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 05/18/2017 CHAR SHIRLEY FACC, ALI FACP CCDS Ot N18.2 CHRONIC KIDNEY DISEASE, STAGE 2 (MILD) 05/18/2017 CHAR SHIRLEY FACC, ALI FACP CCDS Ot I48.91 UNSPECIFIED ATRIAL FIBRILLATION 05/18/2017 CHAR SHIRLEY FACC, ALI FACP CCDS Ot Z79.01 HEALTHCARE PROF (CURRENT) USE OF ANTICOAGULANT 05/18/2017 DORISMA, WILLIAMS L ANIMAL PHYSIOLOGY TEACHER Ot D50.9 IRON DEFICIENCY ANEMIA, UNSPECIFIED 05/18/2017 BAIMA, WILLIAMS L ANIMAL PHYSIOLOGY TEACHER Ot D69.6 THROMBOCYTOPENIA, UNSPECIFIED 05/18/2017 BAIMA, WILLIAMS L ANIMAL PHYSIOLOGY TEACHER Ot E78.5 HYPERLIPIDEMIA, UNSPECIFIED 05/18/2017 BAIMA, WILLIAMS L ANIMAL PHYSIOLOGY TEACHER Ot I12.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 05/18/2017 BAIMA, WILLIAMS L ANIMAL PHYSIOLOGY TEACHER Ot I25.10 ATHSCL HEART DISEASE OF [place] CORONARY 05/18/2017 BAIMA, WILLIAMS L ANIMAL PHYSIOLOGY TEACHER Ot I48.91 UNSPECIFIED ATRIAL FIBRILLATION 05/18/2017 BAIMA, WILLIAMS L ANIMAL PHYSIOLOGY TEACHER Ot N18.9 CHRONIC KIDNEY DISEASE, UNSPECIFIED 05/18/2017 BAIMA, WILLIAMS L ANIMAL PHYSIOLOGY TEACHER Ot Z79.01 SHELTER (CURRENT) USE OF ANTICOAGULANT 05/18/2017 BAIMA, WILLIAMS L ANIMAL PHYSIOLOGY TEACHER Ot Z79.899 OTHER SHELTER (CURRENT) DRUG THERAPY 05/30/2017 BAIMA, WILLIAMS L ANIMAL PHYSIOLOGY TEACHER Ot I48.0 PAROXYSMAL ATRIAL FIBRILLATION 05/30/2017 BAIMA, WILLIAMS L ANIMAL PHYSIOLOGY TEACHER Ot Z79.01 SHELTER (CURRENT) USE OF ANTICOAGULANT 06/03/2017 BAIMA, WILLIAMS L ANIMAL PHYSIOLOGY TEACHER Ot I48.0 PAROXYSMAL ATRIAL FIBRILLATION 06/03/2017 WILLIAMS CHAVEZ ANIMAL PHYSIOLOGY TEACHER Ot Z79.01 HEALTHCARE PROF (CURRENT) USE OF ANTICOAGULANT 06/11/2017 CHAR SHIRLEY FAC, ALI FACP CCDS Ot E78.4 OTHER HYPERLIPIDEMIA 06/11/2017 CHAR SHIRLEY FACC, ALI FACP CCDS Ot I12.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 06/11/2017 CHAR SHIRLEY FACC, ALI FACP CCDS Ot I48.0 PAROXYSMAL ATRIAL FIBRILLATION 06/11/2017 CHAR SHIRLEY FACC, ALI FACP CCDS Ot I49.5 SICK SINUS SYNDROME 06/11/2017 CHAR SHIRLEY FACC, ALI FACP CCDS Ot 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 06/11/2017 CHAR SHIRLEY FACJanay, ALI FACP CCDS Ot N18.2 CHRONIC KIDNEY DISEASE, STAGE 2 (MILD) 06/11/2017 CHAR SHIRLEY FACJanay, ALI FACP CCDS Ot Z79.01 SHELTER (CURRENT) USE OF ANTICOAGULANT 06/19/2017 SLOAN NICE MD Ot D50.9 IRON DEFICIENCY ANEMIA, UNSPECIFIED 06/19/2017 SLOAN NICE MD Ot D69.6 THROMBOCYTOPENIA, UNSPECIFIED 06/19/2017 SLOAN NICE MD Ot E78.5 HYPERLIPIDEMIA, UNSPECIFIED 06/19/2017 SLOAN NICE MD Ot I12.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 06/19/2017 SLOAN NICE MD Ot I25.10 ATHSCL HEART DISEASE OF [place] CORONARY 06/19/2017 SLOAN NICE MD Ot I48.91 UNSPECIFIED ATRIAL FIBRILLATION 06/19/2017 SLOAN NICE MD Ot N18.9 CHRONIC KIDNEY DISEASE, UNSPECIFIED 06/19/2017 SLOAN NICE MD Ot Z79.01 HEALTHCARE PROF (CURRENT) USE OF ANTICOAGULANT 06/19/2017 SLOAN NICE MD Ot Z79.899 OTHER HEALTHCARE PROF (CURRENT) DRUG THERAPY 07/06/2017 SLOAN NICE MD, Ot D50.9 IRON DEFICIENCY ANEMIA, UNSPECIFIED 07/06/2017 SLOAN NICE MD, Ot D69.6 THROMBOCYTOPENIA, UNSPECIFIED 07/06/2017 SLOAN NICE MD Ot E78.5 HYPERLIPIDEMIA, UNSPECIFIED 07/06/2017 SLOAN NICE MD Ot I12.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 07/06/2017 SLOAN NICE MD Ot I25.10 ATHSCL HEART DISEASE OF [place] CORONARY 07/06/2017 SLOAN NICE MD Ot I48.91 UNSPECIFIED ATRIAL FIBRILLATION 07/06/2017 SLOAN NICE MD Ot N18.9 CHRONIC KIDNEY DISEASE, UNSPECIFIED 07/06/2017 SLOAN NICE MD Ot Z79.01 HEALTHCARE PROF (CURRENT) USE OF ANTICOAGULANT 07/06/2017 SLOAN NICE MD Ot Z79.899 OTHER SHELTER (CURRENT) DRUG THERAPY 07/06/2017 SLOAN NICE MD Ot D50.9 IRON DEFICIENCY ANEMIA, UNSPECIFIED 07/06/2017 SLOAN NICE MD Ot D69.6 THROMBOCYTOPENIA, UNSPECIFIED 07/06/2017 SLOAN NICE MD Ot E78.5 HYPERLIPIDEMIA, UNSPECIFIED 07/06/2017 SLOAN NICE MD Ot I12.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 07/06/2017 SLOAN NICE MD Ot I25.10 ATHSCL HEART DISEASE OF [place] CORONARY 07/06/2017 SLOAN NICE MD Ot I48.91 UNSPECIFIED ATRIAL FIBRILLATION 07/06/2017 SLOAN NICE MD Ot N18.9 CHRONIC KIDNEY DISEASE, UNSPECIFIED 07/06/2017 SLOAN NICE MD Ot Z79.01 HEALTHCARE PROF (CURRENT) USE OF ANTICOAGULANT 07/06/2017 SLOAN NICE MD Ot Z79.899 OTHER HEALTHCARE PROF (CURRENT) DRUG THERAPY 07/16/2017 BAIMA, WILLIAMS L ANIMAL PHYSIOLOGY TEACHER Ot D50.9 IRON DEFICIENCY ANEMIA, UNSPECIFIED 07/16/2017 BAIMA, WILLIAMS L ANIMAL PHYSIOLOGY TEACHER Ot D69.6 THROMBOCYTOPENIA, UNSPECIFIED 07/16/2017 BAIMA, WILLIAMS L ANIMAL PHYSIOLOGY TEACHER Ot E78.5 HYPERLIPIDEMIA, UNSPECIFIED 07/16/2017 BAIMA, WILLIAMS L ANIMAL PHYSIOLOGY TEACHER Ot I12.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 07/16/2017 BAIMA, WILLIAMS L ANIMAL PHYSIOLOGY TEACHER Ot I25.10 ATHSCL HEART DISEASE OF [place] CORONARY 07/16/2017 BAIMA, WILLIAMS L ANIMAL PHYSIOLOGY TEACHER Ot I48.91 UNSPECIFIED ATRIAL FIBRILLATION 07/16/2017 BAIMA, WILLIAMS L ANIMAL PHYSIOLOGY TEACHER Ot N18.9 CHRONIC KIDNEY DISEASE, UNSPECIFIED 07/16/2017 BAIMA, WILLIAMS L ANIMAL PHYSIOLOGY TEACHER Ot Z79.01 HEALTHCARE PROF (CURRENT) USE OF ANTICOAGULANT 07/16/2017 BAIMA, WILLIAMS L ANIMAL PHYSIOLOGY TEACHER Ot Z79.899 OTHER SHELTER (CURRENT) DRUG THERAPY 07/17/2017 BAIMA, WILLIAMS L ANIMAL PHYSIOLOGY TEACHER Ot I48.91 UNSPECIFIED ATRIAL FIBRILLATION 07/17/2017 BAIMA WILLIAMS L ANIMAL PHYSIOLOGY TEACHER Ot Z79.01 SHELTER (CURRENT) USE OF ANTICOAGULANT 07/21/2017 BAIMA WILLIAMS L ANIMAL PHYSIOLOGY TEACHER Ot I48.0 PAROXYSMAL ATRIAL FIBRILLATION 07/21/2017 BAIMA WILLIAMS L ANIMAL PHYSIOLOGY TEACHER Ot Z79.01 SHELTER (CURRENT) USE OF ANTICOAGULANT 07/27/2017 SLOAN NICE MD Ot D50.9 IRON DEFICIENCY ANEMIA, UNSPECIFIED 07/27/2017 SLOAN NICE MD Ot D69.6 THROMBOCYTOPENIA, UNSPECIFIED 07/27/2017 SLOAN NICE MD Ot E78.5 HYPERLIPIDEMIA, UNSPECIFIED 07/27/2017 SLOAN NICE MD Ot I12.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 07/27/2017 SLOAN NICE MD Ot I25.10 ATHSCL HEART DISEASE OF [place] CORONARY 07/27/2017 SLOAN NICE MD Ot I48.91 UNSPECIFIED ATRIAL FIBRILLATION 07/27/2017 SLOAN INCE MD Ot N18.9 CHRONIC KIDNEY DISEASE, UNSPECIFIED 07/27/2017 SLOAN NICE MD Ot Z79.01 HEALTHCARE PROF (CURRENT) USE OF ANTICOAGULANT 07/27/2017 SLOAN NICE MD Ot Z79.899 OTHER SHELTER (CURRENT) DRUG THERAPY 08/04/2017 DORISMA WILLIAMS L ANIMAL PHYSIOLOGY TEACHER Ot I48.91 UNSPECIFIED ATRIAL FIBRILLATION 08/04/2017 BAIMA WILLIAMS L ANIMAL PHYSIOLOGY TEACHER Ot Z79.01 SHELTER (CURRENT) USE OF ANTICOAGULANT 09/13/2017 DORISMAWILLIAMS L ANIMAL PHYSIOLOGY TEACHER Ot I48.91 UNSPECIFIED ATRIAL FIBRILLATION 09/13/2017 BAIMA WILLIAMS L ANIMAL PHYSIOLOGY TEACHER Ot Z79.01 HEALTHCARE PROF (CURRENT) USE OF ANTICOAGULANT 09/16/2017 SLOAN NICE MD Ot D50.9 IRON DEFICIENCY ANEMIA, UNSPECIFIED 09/16/2017 SLOAN NICE MD Ot D69.6 THROMBOCYTOPENIA, UNSPECIFIED 09/16/2017 SLOAN NICE MD Ot E78.5 HYPERLIPIDEMIA, UNSPECIFIED 09/16/2017 SLOAN NICE MD Ot I12.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 09/16/2017 SLOAN NICE MD Ot I25.10 ATHSCL HEART DISEASE OF [place] CORONARY 09/16/2017 SLOAN NICE MD Ot I48.91 UNSPECIFIED ATRIAL FIBRILLATION 09/16/2017 SLOAN NICE MD Ot N18.9 CHRONIC KIDNEY DISEASE, UNSPECIFIED 09/16/2017 SLOAN NICE MD Ot Z79.01 HEALTHCARE PROF (CURRENT) USE OF ANTICOAGULANT 09/16/2017 SLOAN NICE MD Ot Z79.899 OTHER HEALTHCARE PROF (CURRENT) DRUG THERAPY 09/17/2017 SLOAN NICE MD Ot D50.9 IRON DEFICIENCY ANEMIA, UNSPECIFIED 09/17/2017 SLOAN NICE MD Ot D69.6 THROMBOCYTOPENIA, UNSPECIFIED 09/17/2017 SLOAN NICE MD Ot E78.5 HYPERLIPIDEMIA, UNSPECIFIED 09/17/2017 SLOAN NICE MD Ot I12.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 09/17/2017 SLOAN NICE MD Ot I25.10 ATHSCL HEART DISEASE OF [place] CORONARY 09/17/2017 SLOAN NICE MD Ot I48.91 UNSPECIFIED ATRIAL FIBRILLATION 09/17/2017 SLOAN NICE MD Ot N18.9 CHRONIC KIDNEY DISEASE, UNSPECIFIED 09/17/2017 SLOAN NICE MD Ot Z79.01 HEALTHCARE PROF (CURRENT) USE OF ANTICOAGULANT 09/17/2017 SLOAN NICE MD Ot Z79.899 OTHER HEALTHCARE PROF (CURRENT) DRUG THERAPY 09/19/2017 BAIMA, WILLIAMS L ANIMAL PHYSIOLOGY TEACHER Ot I48.91 UNSPECIFIED ATRIAL FIBRILLATION 09/19/2017 BAIMA, WILLIAMS L ANIMAL PHYSIOLOGY TEACHER Ot Z79.01 HEALTHCARE PROF (CURRENT) USE OF ANTICOAGULANT 10/08/2017 BAIMA, WILLIAMS L ANIMAL PHYSIOLOGY TEACHER Ot I48.91 UNSPECIFIED ATRIAL FIBRILLATION 10/08/2017 BAIMA, WILLIAMS L ANIMAL PHYSIOLOGY TEACHER Ot Z79.01 HEALTHCARE PROF (CURRENT) USE OF ANTICOAGULANT 10/08/2017 BAIMA, WILLIAMS L ANIMAL PHYSIOLOGY TEACHER Ot I48.91 UNSPECIFIED ATRIAL FIBRILLATION 10/08/2017 BAIMA, WILLIAMS L ANIMAL PHYSIOLOGY TEACHER Ot Z79.01 SHELTER (CURRENT) USE OF ANTICOAGULANT 10/13/2017 BAIMA, WILLIAMS L ANIMAL PHYSIOLOGY TEACHER Ot I48.91 UNSPECIFIED ATRIAL FIBRILLATION 10/13/2017 BAIMA, WILLIAMS L ANIMAL PHYSIOLOGY TEACHER Ot Z79.01 HEALTHCARE PROF (CURRENT) USE OF ANTICOAGULANT 11/02/2017 BAIMA, WILLIAMS L ANIMAL PHYSIOLOGY TEACHER Ot I48.91 UNSPECIFIED ATRIAL FIBRILLATION 11/02/2017 BAIMA, WILLIAMS L ANIMAL PHYSIOLOGY TEACHER Ot Z79.01 SHELTER (CURRENT) USE OF ANTICOAGULANT 11/16/2017 CHAR SHIRLEY FACC, ALI FACP CCDS Ot E66.8 OTHER OBESITY 11/16/2017 CHAR SHIRLEY FACC, ALI FACP CCDS Ot E78.5 HYPERLIPIDEMIA, UNSPECIFIED 11/16/2017 CHAR SHIRLEY FACC, ALI FACP CCDS Ot I12.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 11/16/2017 CHAR SHIRLEY FACC, ALI FACP CCDS Ot I25.10 ATHSCL HEART DISEASE OF [place] CORONARY 11/16/2017 CHAR SHIRLEY FACC, ALI FACP CCDS Ot I48.0 PAROXYSMAL ATRIAL FIBRILLATION 11/16/2017 CHAR SHIRLEY FACC, ALI FACP CCDS Ot I65.29 OCCLUSION AND STENOSIS OF UNSPECIFIED CA 11/16/2017 CHAR SHIRLEY FACC, ALI FACP CCDS Ot N18.2 CHRONIC KIDNEY DISEASE, STAGE 2 (MILD) 11/16/2017 CHAR SHIRLEY FACC, ALI FACP CCDS Ot Z79.01 SHELTER (CURRENT) USE OF ANTICOAGULANT 11/16/2017 CHAR SHIRLEY [...] CCDS Ot I25.10 ATHSCL HEART DISEASE OF [place] CORONARY 11/16/2017 CHAR SHIRLEY FACC, ALI FACP CCDS Ot I48.0 PAROXYSMAL ATRIAL FIBRILLATION 11/16/2017 CHAR SHIRLEY FACC, ALI FACP CCDS Ot I65.29 OCCLUSION AND STENOSIS OF UNSPECIFIED CA 11/16/2017 CHAR SHIRLEY FACC, ALI FACP CCDS Ot N18.2 CHRONIC KIDNEY DISEASE, STAGE 2 (MILD) 11/16/2017 CHAR SHIRLEY FACC, ALI FACP CCDS Ot Z79.01 SHELTER (CURRENT) USE OF ANTICOAGULANT 11/16/2017 CHAR SHIRLEY [...] SHIRLEY FACC, ALI FACP CCDS Ot Z79.01 SHELTER (CURRENT) USE OF ANTICOAGULANT 11/25/2017 CHAR SHIRLEY FACC, ALI FACP CCDS Ot I12.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 11/25/2017 CHAR SHIRLEY FACC, ALI FACP CCDS Ot I48.0 PAROXYSMAL ATRIAL FIBRILLATION 11/25/2017 CHAR SHIRLEY FACC, ALI FACP CCDS Ot N18.2 CHRONIC KIDNEY DISEASE, STAGE 2 (MILD) 11/25/2017 CHAR SHIRLEY FACC, ALI FACP CCDS Ot Z79.01 SHELTER (CURRENT) USE OF ANTICOAGULANT 12/03/2017 CHAR BURGERC, ALI FACP CCDS Ot E66.8 OTHER OBESITY 12/03/2017 CHAR SHIRLEY FACC, ALI FACP CCDS Ot E78.5 HYPERLIPIDEMIA, UNSPECIFIED 12/03/2017 CHAR BURGERC, ALI FACP CCDS Ot I12.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 12/03/2017 CHAR BURGERC, ALI FACP CCDS Ot I25.10 ATHSCL HEART DISEASE OF [place] CORONARY 12/03/2017 CHAR SHIRLEY FACC, ALI FACP CCDS Ot I48.0 PAROXYSMAL ATRIAL FIBRILLATION 12/03/2017 CHAR BURGERC, ALI FACP CCDS Ot I65.29 OCCLUSION AND STENOSIS OF UNSPECIFIED CA 12/03/2017 CHAR BURGERC, ALI FACP CCDS Ot N18.2 CHRONIC KIDNEY DISEASE, STAGE 2 (MILD) 12/03/2017 CHAR SHIRLEY FACC, ALI FACP CCDS Ot Z79.01 SHELTER (CURRENT) USE OF ANTICOAGULANT 12/03/2017 CHAR BURGERC, ALI FACP CCDS Ot Z95.0 PRESENCE OF CARDIAC PACEMAKER 12/11/2017 CHAR BURGERC, ALI FACP CCDS Ot I48.91 UNSPECIFIED ATRIAL FIBRILLATION 12/11/2017 CHAR BURGERC, ALI FACP CCDS Ot Z79.01 HEALTHCARE PROF (CURRENT) USE OF ANTICOAGULANT 12/13/2017 BAIMA, WILLIAMS L ANIMAL PHYSIOLOGY TEACHER Ot E66.8 OTHER OBESITY 12/13/2017 BAIWILLIAMS CANO L ANIMAL PHYSIOLOGY TEACHER Ot E78.5 HYPERLIPIDEMIA, UNSPECIFIED 12/13/2017 BAIWILLIAMS CANO L ANIMAL PHYSIOLOGY TEACHER Ot I12.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 12/13/2017 WILLIAMS CHAVEZ L ANIMAL PHYSIOLOGY TEACHER Ot I25.10 ATHSCL HEART DISEASE OF [place] CORONARY 12/13/2017 WILLIAMS CHAVEZ L ANIMAL PHYSIOLOGY TEACHER Ot I48.0 PAROXYSMAL ATRIAL FIBRILLATION 12/13/2017 BAIMAWILLIAMS L ANIMAL PHYSIOLOGY TEACHER Ot I48.91 UNSPECIFIED ATRIAL FIBRILLATION 12/13/2017 WILLIAMS CHAVEZ L ANIMAL PHYSIOLOGY TEACHER Ot I65.29 OCCLUSION AND STENOSIS OF UNSPECIFIED CA 12/13/2017 WILLIAMS CHAVEZ L ANIMAL PHYSIOLOGY TEACHER Ot N18.2 CHRONIC KIDNEY DISEASE, STAGE 2 (MILD) 12/13/2017 WILLIAMS CHAVEZ L ANIMAL PHYSIOLOGY TEACHER Ot Z79.01 SHELTER (CURRENT) USE OF ANTICOAGULANT 12/13/2017 DORISWILLIAMS CANO L ANIMAL PHYSIOLOGY TEACHER Ot Z95.0 PRESENCE OF CARDIAC PACEMAKER 12/14/2017 DORISWILLIAMS CANO L ANIMAL PHYSIOLOGY TEACHER Ot I48.91 UNSPECIFIED ATRIAL FIBRILLATION 12/14/2017 BAIWILLIAMS CANO L ANIMAL PHYSIOLOGY TEACHER Ot Z79.01 HEALTHCARE PROF (CURRENT) USE OF ANTICOAGULANT 12/15/2017 WILLIAMS CHAVEZ L ANIMAL PHYSIOLOGY TEACHER Ot I48.91 UNSPECIFIED ATRIAL FIBRILLATION 12/15/2017 BAIMAJEREMIAHWILLIAMS L ANIMAL PHYSIOLOGY TEACHER Ot Z79.01 HEALTHCARE PROF (CURRENT) USE OF ANTICOAGULANT 12/18/2017 CHAR SHIRLEY FACC, AGNIESZKA FACP CCDS Ot I12.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 12/18/2017 CHAR SHIRLEY FACC, AGNIESZKA FACP CCDS Ot I48.0 PAROXYSMAL ATRIAL FIBRILLATION 12/18/2017 CHAR SHIRLEY FACC, ALI FACP CCDS Ot N18.2 CHRONIC KIDNEY DISEASE, STAGE 2 (MILD) 12/18/2017 CHAR SHIRLEY FACC, ALI FACP CCDS Ot Z79.01 SHELTER (CURRENT) USE OF ANTICOAGULANT 12/19/2017 DORISJEREMIAH CANOHER L ANIMAL PHYSIOLOGY TEACHER Ot I48.91 UNSPECIFIED ATRIAL FIBRILLATION 12/19/2017 BAIMA, WILLIAMS L ANIMAL PHYSIOLOGY TEACHER Ot Z79.01 HEALTHCARE PROF (CURRENT) USE OF ANTICOAGULANT 12/30/2017 MOI SHIRLEY, JAZIEL Curtis Ot Z29.8 ENCOUNTER FOR OTHER SPECIFIED PROPHYLACT 12/31/2017 CHAR SHIRLEY FACC, AGNIESZKA BURGERP CCDS Ot I48.91 UNSPECIFIED ATRIAL FIBRILLATION 12/31/2017 CHAR SHIRLEY FACC, AGNIESZKA BURGERP CCDS Ot Z79.01 HEALTHCARE PROF (CURRENT) USE OF ANTICOAGULANT 01/19/2018 BAIMA, WILLIAMS L ANIMAL PHYSIOLOGY TEACHER Ot I48.91 UNSPECIFIED ATRIAL FIBRILLATION 01/19/2018 BAIMA, WILLIAMS L ANIMAL PHYSIOLOGY TEACHER Ot Z51.81 ENCOUNTER FOR THERAPEUTIC DRUG LEVEL MON 01/19/2018 BAIMA, WILLIAMS L ANIMAL PHYSIOLOGY TEACHER Ot Z79.01 HEALTHCARE PROF (CURRENT) USE OF ANTICOAGULANT 01/31/2018 MOI SHIRLEY JAZIEL R Ot Z29.8 ENCOUNTER FOR OTHER SPECIFIED PROPHYLACT 03/03/2018 MOI SHIRLEY JAZIEL R Ot Z29.8 ENCOUNTER FOR OTHER SPECIFIED PROPHYLACT 03/14/2018 BAIMA, WILLIAMS L ANIMAL PHYSIOLOGY TEACHER Ot I48.91 UNSPECIFIED ATRIAL FIBRILLATION 03/14/2018 BAIMA, WILLIAMS L ANIMAL PHYSIOLOGY TEACHER Ot Z51.81 ENCOUNTER FOR THERAPEUTIC DRUG LEVEL MON 03/14/2018 BAIMA WILLIAMS L ANIMAL PHYSIOLOGY TEACHER Ot Z79.01 SHELTER (CURRENT) USE OF ANTICOAGULANT 03/16/2018 BAIMA, WILLIAMS L ANIMAL PHYSIOLOGY TEACHER Ot I48.91 UNSPECIFIED ATRIAL FIBRILLATION 03/16/2018 BAIMA, WILLIAMS L ANIMAL PHYSIOLOGY TEACHER Ot Z51.81 ENCOUNTER FOR THERAPEUTIC DRUG LEVEL MON 03/16/2018 BAIMA, WILLIAMS L ANIMAL PHYSIOLOGY TEACHER Ot Z79.01 HEALTHCARE PROF (CURRENT) USE OF ANTICOAGULANT 04/04/2018 MOI SHIRLEY JAZIEL R Ot Z29.8 ENCOUNTER FOR OTHER SPECIFIED PROPHYLACT 05/05/2018 MOI SHIRLEY JAZIEL R Ot Z29.8 ENCOUNTER FOR OTHER SPECIFIED PROPHYLACT 05/06/2018 MOI SHIRLEY JAZIEL R Ot Z29.8 ENCOUNTER FOR OTHER SPECIFIED PROPHYLACT 05/20/2018 BAIMA, WILLIAMS L ANIMAL PHYSIOLOGY TEACHER Ot I48.91 UNSPECIFIED ATRIAL FIBRILLATION 05/20/2018 BAIMA WILLIAMS L ANIMAL PHYSIOLOGY TEACHER Ot Z51.81 ENCOUNTER FOR THERAPEUTIC DRUG LEVEL MON 05/20/2018 BAIMA, WILLIAMS L ANIMAL PHYSIOLOGY TEACHER Ot Z79.01 HEALTHCARE PROF (CURRENT) USE OF ANTICOAGULANT 05/27/2018 CHAR SHIRLEY FACC, AGNIESZKA FRIEND CCDS Ot I10 ESSENTIAL (PRIMARY) HYPERTENSION 05/27/2018 CHAR SHIRLEY FACC, ALI FACP CCDS Ot I25.10 ATHSCL HEART DISEASE OF [place] CORONARY 05/27/2018 CHAR SHIRLEY FACC, ALI FACP CCDS Ot I48.2 CHRONIC ATRIAL FIBRILLATION 05/27/2018 CHAR SHIRLEY FACC, ALI FACP CCDS Ot 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 AN 05/27/2018 CHAR SHIRLEY FACC, ALI FACP CCDS Ot R06.02 SHORTNESS OF BREATH 05/27/2018 CHAR SHIRLEY FACC, ALI FACP CCDS Ot Z79.01 HEALTHCARE PROF (CURRENT) USE OF ANTICOAGULANT 06/09/2018 MOI SHIRLEY, JAZIEL R Ot Z29.8 ENCOUNTER FOR OTHER SPECIFIED PROPHYLACT 06/10/2018 CHAR SHIRLEY FACC, AGNIESZKA FACP CCDS Ot 427.31 ATRIAL FIBRILLATION 06/10/2018 CHAR SHIRLEY FACC, ALI FACP CCDS Ot 729.81 SWELLING OF LIMB 06/10/2018 CHAR SHIRLEY FACC, ALI FACP CCDS Ot 786.09 RESPIRATORY ABNORM NEC 06/10/2018 CHAR SHIRLEY FACC, ALI FACP CCDS Ot V58.69 OTH MED,LT,CURRENT USE 06/10/2018 BAIMA, WILLIAMS L ANIMAL PHYSIOLOGY TEACHER Ot 790.6 ABN BLOOD CHEMISTRY NEC 06/10/2018 BAIMA, WILLIAMS L ANIMAL PHYSIOLOGY TEACHER Ot 790.6 ABN BLOOD CHEMISTRY NEC 06/10/2018 BAIMA, WILLIAMS L ANIMAL PHYSIOLOGY TEACHER Ot 428.0 CONGESTIVE HEART FAILURE NOS 06/10/2018 BAIMA, WILLIAMS L ANIMAL PHYSIOLOGY TEACHER Ot 428.0 CONGESTIVE HEART FAILURE NOS 06/10/2018 CHAR SHIRLEY FACC, ALI FACP CCDS Ot 414.00 CORON ATHEROSCLER NOS TYPE VESSEL, NATIV 06/10/2018 CHAR SHIRLEY FACC, ALI FACP CCDS Ot 429.3 CARDIOMEGALY 06/10/2018 CHAR SHIRLEY FACC, ALI FACP CCDS Ot 786.59 CHEST PAIN NEC 06/10/2018 CHAR SHIRLEY FACC, ALI FACP CCDS Ot 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 06/10/2018 BAIMA, WILLIAMS L ANIMAL PHYSIOLOGY TEACHER Ot 272.4 HYPERLIPIDEMIA NEC/NOS 06/10/2018 Ot 272.0 [...] V58.61 ANTICOAGULANTS,LT,CURRENT USE 06/10/2018 BAIMA, WILLIAMS L ANIMAL PHYSIOLOGY TEACHER Ot 272.4 HYPERLIPIDEMIA NEC/NOS 06/10/2018 BAIMA, WILLIAMS L ANIMAL PHYSIOLOGY TEACHER Ot 401.9 HYPERTENSION NOS 06/10/2018 BAIMA, WILLIAMS L ANIMAL PHYSIOLOGY TEACHER Ot 414.00 CORON ATHEROSCLER NOS TYPE VESSEL, NATIV 06/10/2018 BAIMA, WILLIAMS L ANIMAL PHYSIOLOGY TEACHER Ot 427.31 ATRIAL FIBRILLATION 06/10/2018 BAIMA, WILLIAMS L ANIMAL PHYSIOLOGY TEACHER Ot 272.4 HYPERLIPIDEMIA NEC/NOS 06/10/2018 BAIMA, WILLIAMS L ANIMAL PHYSIOLOGY TEACHER Ot 401.9 HYPERTENSION NOS 06/10/2018 BAIMA, WILLIAMS L ANIMAL PHYSIOLOGY TEACHER Ot 414.9 CHR ISCHEMIC HRT DIS NOS 06/10/2018 BAIMA, WILLIAMS L ANIMAL PHYSIOLOGY TEACHER Ot 427.31 ATRIAL FIBRILLATION 06/10/2018 MOI SHIRLEY, JAZIEL R Ot 780.79 OTH MALAISE FATIGUE 06/10/2018 MOI SHIRLEY, JAZIEL R Ot 429.3 CARDIOMEGALY 06/10/2018 MOI SHIRLEY, JAZIEL R Ot 786.2 COUGH 06/10/2018 MOI SHIRLEY, JAZIEL R Ot 794.4 ABN KIDNEY FUNCT STUDY 06/10/2018 MOI SHIRLEY, JAZIEL R Ot I48.91 UNSPECIFIED [...] CCDS Ot I25.10 ATHSCL HEART DISEASE OF [place] CORONARY 06/10/2018 CHAR SHIRLEY FACC, ALI FACP [...] SHIRLEY FACC, ALI FACP CCDS Ot Z79.01 HEALTHCARE PROF (CURRENT) USE OF ANTICOAGULANT 06/10/2018 CHAR SHIRLEY [...] SHIRLEY FACC, ALI FACP CCDS Ot Z79.01 SHELTER (CURRENT) USE OF ANTICOAGULANT 06/10/2018 SLOAN NICE MD Ot D50.9 IRON DEFICIENCY ANEMIA, UNSPECIFIED 06/10/2018 SLOAN NICE MD Ot D69.6 THROMBOCYTOPENIA, UNSPECIFIED 06/10/2018 SLOAN NICE MD Ot E78.5 HYPERLIPIDEMIA, UNSPECIFIED 06/10/2018 SLOAN NICE MD Ot I12.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 06/10/2018 SLOAN NICE MD Ot I25.10 ATHSCL HEART DISEASE OF [place] CORONARY 06/10/2018 SLOAN NICE MD Ot I48.91 UNSPECIFIED ATRIAL FIBRILLATION 06/10/2018 SLOAN NICE MD Ot N18.9 CHRONIC KIDNEY DISEASE, UNSPECIFIED 06/10/2018 SLOAN NICE MD Ot Z79.01 HEALTHCARE PROF (CURRENT) USE OF ANTICOAGULANT 06/10/2018 SLOAN NICE MD Ot Z79.899 OTHER SHELTER (CURRENT) DRUG THERAPY 06/10/2018 CHAR BURGERC, ALI FACP CCDS Ot E66.8 OTHER OBESITY 06/10/2018 CHAR SHIRLEY FACC, ALI FACP CCDS Ot E78.5 HYPERLIPIDEMIA, UNSPECIFIED 06/10/2018 CHAR SHIRLEY FACC, ALI FACP CCDS Ot I12.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 06/10/2018 CHAR SHIRLEY FACC, ALI FACP CCDS Ot I25.10 ATHSCL HEART DISEASE OF [place] CORONARY 06/10/2018 CHAR SHIRLEY FACC, ALI FACP CCDS Ot I48.0 PAROXYSMAL ATRIAL FIBRILLATION 06/10/2018 CHAR SHIRLEY FACC, ALI FACP CCDS Ot I65.29 OCCLUSION AND STENOSIS OF UNSPECIFIED CA 06/10/2018 CHAR SHIRLEY FACC, ALI FACP CCDS Ot N18.2 CHRONIC KIDNEY DISEASE, STAGE 2 (MILD) 06/10/2018 CHAR SHIRLEY FACC, ALI FACP CCDS Ot Z79.01 SHELTER (CURRENT) USE OF ANTICOAGULANT 06/10/2018 CHAR SHIRLEY [...] SHIRLEY FACC, ALI FACP CCDS Ot Z79.01 SHELTER (CURRENT) USE OF ANTICOAGULANT 06/10/2018 WILLIAMS CHAVEZ ANIMAL PHYSIOLOGY TEACHER Ot I48.91 UNSPECIFIED ATRIAL FIBRILLATION 06/10/2018 WILLIAMS CHAVEZ ANIMAL PHYSIOLOGY TEACHER Ot Z51.81 ENCOUNTER FOR THERAPEUTIC DRUG LEVEL MON 06/10/2018 WILLIAMS CHAVEZ ANIMAL PHYSIOLOGY TEACHER Ot Z79.01 HEALTHCARE PROF (CURRENT) USE OF ANTICOAGULANT 06/10/2018 CHAR SHIRLEY FACC, ALI FACP CCDS Ot I10 ESSENTIAL (PRIMARY) HYPERTENSION 06/10/2018 CHAR SHIRLEY FACC, ALI FACP CCDS Ot I25.10 ATHSCL HEART DISEASE OF [place] CORONARY 06/10/2018 CHAR SHIRLEY FACC, ALI FACP CCDS Ot I48.2 CHRONIC ATRIAL FIBRILLATION 06/10/2018 CHAR SHIRLEY FACC, ALI FACP CCDS Ot 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 AN 06/10/2018 CHAR SHIRLEY FACC, ALI FACP CCDS Ot R06.02 SHORTNESS OF BREATH 06/10/2018 CHAR SHIRLEY FACC, ALI FACP CCDS Ot Z79.01 SHELTER (CURRENT) USE OF ANTICOAGULANT 06/14/2018 BAIWILLIAMS CANO ANIMAL PHYSIOLOGY TEACHER Ot I48.91 UNSPECIFIED ATRIAL FIBRILLATION 06/14/2018 WILLIAMS CHAVEZ ANIMAL PHYSIOLOGY TEACHER Ot Z51.81 ENCOUNTER FOR THERAPEUTIC DRUG LEVEL MON 06/14/2018 WILLIAMS CHAVEZ ANIMAL PHYSIOLOGY TEACHER Ot Z79.01 SHELTER (CURRENT) USE OF ANTICOAGULANT 06/14/2018 CHAR BURGERC, ALI FACP CCDS Ot E87.5 HYPERKALEMIA 06/14/2018 CHAR BURGERC, ALI FACP CCDS Ot I08.3 COMB RHEUMATIC DISORD OF MITRAL, AORTIC 06/14/2018 CHAR SHIRLEY FACC, ALI FACP CCDS Ot I10 ESSENTIAL (PRIMARY) HYPERTENSION 06/14/2018 CHAR BURGERC, ALI FACP CCDS Ot I25.10 ATHSCL HEART DISEASE OF [place] CORONARY 06/14/2018 CHAR SHIRLEY FACC, ALI FACP CCDS Ot I48.2 CHRONIC ATRIAL FIBRILLATION 06/14/2018 CHAR SHIRLEY FACC, ALI FACP CCDS Ot R06.02 SHORTNESS OF BREATH 06/14/2018 CHAR SHIRLEY FACC, ALI FACP CCDS Ot Z79.01 SHELTER (CURRENT) USE OF ANTICOAGULANT 06/15/2018 CHAR SHIRLEY FACC, ALI FACP CCDS Ot I10 ESSENTIAL (PRIMARY) HYPERTENSION 06/15/2018 CHAR SHIRLEY FACC, ALI FACP CCDS Ot I25.10 ATHSCL HEART DISEASE OF [place] CORONARY 06/15/2018 CHAR SHIRLEY FACC, ALI FACP CCDS Ot I48.2 CHRONIC ATRIAL FIBRILLATION 06/15/2018 CHAR SHIRLEY FACC, ALI FACP CCDS Ot 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 AN 06/15/2018 CHAR SHIRLEY [facility] CCDS Ot R06.02 SHORTNESS OF BREATH 06/15/2018 CHAR SHIRLEY [facility], [facility] CCDS Ot Z79.01 HEALTHCARE PROF (CURRENT) USE OF ANTICOAGULANT 06/15/2018 HUMA SHELDON MD Ot F41.9 ANXIETY DISORDER, UNSPECIFIED 06/15/2018 HUMA SHELDON MD Ot I25.2 OLD MYOCARDIAL INFARCTION 06/15/2018 HUMA SHELDON MD Ot M25.561 PAIN IN RIGHT KNEE 06/15/2018 UHMA SHELDON MD, Ot R40.2142 COMA SCALE, EYES OPEN, SPONTANEOUS, EMR 06/15/2018 HUMA SHELDON MD, Ot R40.2252 COMA SCALE, BEST VERBAL RESPONSE, ORIENT 06/15/2018 HUMA SHELDON MD, Ot R40.2362 COMA SCALE, BEST MOTOR RESPONSE, OBEYS C 06/15/2018 HUMA SHELDON MD Ot S63.502A UNSPECIFIED SPRAIN OF LEFT WRIST, INITIA 06/15/2018 HUMA SHELDON MD Ot S80.01XA CONTUSION OF RIGHT KNEE, INITIAL ENCOUNT 06/15/2018 HUMA SHELDON MD Ot W10.8XXA FALL (ON) (FROM) OTHER STAIRS AND STEPS, 06/15/2018 HUMA SHELDON MD Ot Y92.[address] [facility] [address] IN [facility] NON-INSTIT[facility] (PRIVATE 06/15/2018 HUMA SHELDON MD Ot Z23 ENCOUNTER FOR IMMUNIZATION 06/15/2018 HUMA SHELDON MD Ot Z79.01 HEALTHCARE PROF (CURRENT) USE OF ANTICOAGULANT 06/15/2018 HUMA SHELDON MD Ot Z79.82 HEALTHCARE PROF (CURRENT) USE OF ASPIRIN 06/15/2018 HUMA SHELDON MD Ot Z87.442 PERSONAL HISTORY OF URINARY CALCULI 06/15/2018 HUMA SHELDON MD Ot Z87.891 PERSONAL HISTORY OF NICOTINE DEPENDENCE 06/15/2018 HUMA SHELDON MD Ot Z95.1 PRESENCE OF AORTOCORONARY BYPASS GRAFT 06/17/2018 HUMA SHELDON MD Ot F41.9 ANXIETY DISORDER, UNSPECIFIED 06/17/2018 HUMA SHELDON MD, Ot I25.2 OLD MYOCARDIAL INFARCTION 06/17/2018 HUMA SHELDON MD, Ot M25.561 PAIN IN RIGHT KNEE 06/17/2018 [...] OTHER STAIRS AND STEPS, 06/17/2018 HUMA SHELDON MD Ot Y92.[address] [facility] [address] IN [facility] NON[facility] (PRIVATE 06/17/2018 HUMA SHELDON MD Ot Z23 ENCOUNTER FOR IMMUNIZATION 06/17/2018 HUMA SHELDON MD Ot Z79.01 SHELTER (CURRENT) USE OF ANTICOAGULANT 06/17/2018 HUMA SHELDON MD Ot Z79.82 HEALTHCARE PROF (CURRENT) USE OF ASPIRIN 06/17/2018 HUMA SHELDON MD Ot Z87.442 PERSONAL HISTORY OF URINARY CALCULI 06/17/2018 HUMA SHELDON MD Ot Z87.891 PERSONAL HISTORY OF NICOTINE DEPENDENCE 06/17/2018 HUMA SHELDON MD Ot Z95.1 PRESENCE OF AORTOCORONARY BYPASS GRAFT 06/21/2018 HUMA SHELDON MD Ot F41.9 ANXIETY DISORDER, UNSPECIFIED 06/21/2018 HUMA [...] STEPS, 06/21/2018 HUMA SHELDON MD, Ot Y92.[address] [facility] [address] IN [facility] NON[facility] (PRIVATE 06/21/2018 HUMA SHELDON MD, Ot Z23 ENCOUNTER FOR IMMUNIZATION 06/21/2018 HUMA SHELDON MD, Ot Z79.01 HEALTHCARE PROF (CURRENT) USE OF ANTICOAGULANT 06/21/2018 HUMA SHELDON MD, Ot Z79.82 SHELTER (CURRENT) USE OF ASPIRIN 06/21/2018 HUMA SHELDON MD, Ot Z87.442 PERSONAL HISTORY OF URINARY CALCULI 06/21/2018 HUMA SHELDON MD, Ot Z87.891 PERSONAL HISTORY OF NICOTINE DEPENDENCE 06/21/2018 HUMA SHELDON MD, Ot Z95.1 PRESENCE OF AORTOCORONARY BYPASS GRAFT 06/30/2018 CHAR SHIRLEY FACC, AGNIESZKA FACP CCDS Ot E87.5 HYPERKALEMIA 06/30/2018 CHAR SHIRLEY FACC, AGNIESZKA FACP CCDS Ot I08.3 COMB RHEUMATIC DISORD OF MITRAL, AORTIC 06/30/2018 CHAR SHIRLEY FACC, ALI FACP CCDS Ot I10 ESSENTIAL (PRIMARY) HYPERTENSION 06/30/2018 CHAR SHIRLEY FACC, ALI FACP CCDS Ot I25.10 ATHSCL HEART DISEASE OF [place] CORONARY 06/30/2018 CHAR SHIRLEY FACC, AGNIESZKA FACP CCDS Ot I48.2 CHRONIC ATRIAL FIBRILLATION 06/30/2018 CHAR SHIRLEY FACC, ALI FACP CCDS Ot R06.02 SHORTNESS OF BREATH 06/30/2018 CHAR SHIRLEY FACC, ALI FACP CCDS Ot Z79.01 SHELTER (CURRENT) USE OF ANTICOAGULANT 07/11/2018 SEGLIE MD, JAZIEL R Ot Z29.8 ENCOUNTER FOR OTHER SPECIFIED PROPHYLACT 07/12/2018 MOI SHIRLEY JAZIEL R Ot Z29.8 ENCOUNTER FOR OTHER SPECIFIED PROPHYLACT 08/11/2018 FATIMAH PRATER MDYD R Ot Z29.8 ENCOUNTER FOR OTHER SPECIFIED PROPHYLACT 08/12/2018 FATIMAH PRATER MDYD R Ot Z29.8 ENCOUNTER FOR OTHER SPECIFIED PROPHYLACT 08/27/2018 SLOAN NICE MD Ot D50.9 IRON DEFICIENCY ANEMIA, UNSPECIFIED 08/27/2018 SLOAN NICE MD Ot D69.6 THROMBOCYTOPENIA, UNSPECIFIED 08/27/2018 SLOAN NICE MD Ot E78.5 HYPERLIPIDEMIA, UNSPECIFIED 08/27/2018 SLOAN NICE MD Ot I12.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 08/27/2018 SLOAN NICE MD Ot I25.10 ATHSCL HEART DISEASE OF [place] CORONARY 08/27/2018 SLOAN NICE MD Ot I48.91 UNSPECIFIED ATRIAL FIBRILLATION 08/27/2018 SLOAN NICE MD Ot N18.9 CHRONIC KIDNEY DISEASE, UNSPECIFIED 08/27/2018 SLOAN NICE MD Ot Z79.01 SHELTER (CURRENT) USE OF ANTICOAGULANT 08/27/2018 SLOAN NICE MD Ot Z79.899 OTHER HEALTHCARE PROF (CURRENT) DRUG THERAPY 08/27/2018 ML GANNON APRN Ot R50.9 FEVER, UNSPECIFIED 09/12/2018 FATIMAH PRATER MDYD R Ot Z29.8 ENCOUNTER FOR OTHER SPECIFIED PROPHYLACT 09/13/2018 FATIMAH PRATER MDYD R Ot Z29.8 ENCOUNTER FOR OTHER SPECIFIED PROPHYLACT 09/17/2018 WILLIASM CHAVEZ ANIMAL PHYSIOLOGY TEACHER Ot I48.91 UNSPECIFIED ATRIAL FIBRILLATION 09/17/2018 WILLIAMS CHAVEZ ANIMAL PHYSIOLOGY TEACHER Ot Z51.81 ENCOUNTER FOR THERAPEUTIC DRUG LEVEL MON 09/17/2018 BAIMAWILLIAMS ANIMAL PHYSIOLOGY TEACHER Ot Z79.01 HEALTHCARE PROF (CURRENT) USE OF ANTICOAGULANT 09/17/2018 BAIMAWILLIAMS ANIMAL PHYSIOLOGY TEACHER Ot I48.91 UNSPECIFIED ATRIAL FIBRILLATION 09/17/2018 BAIMAWILLIAMS ANIMAL PHYSIOLOGY TEACHER Ot Z51.81 ENCOUNTER FOR THERAPEUTIC DRUG LEVEL MON 09/17/2018 DORISMAWILLIAMS ANIMAL PHYSIOLOGY TEACHER Ot Z79.01 SHELTER (CURRENT) USE OF ANTICOAGULANT 09/22/2018 AMADOU, MICHELLE R WALLPAPER CONSULTANT Ot G47.33 OBSTRUCTIVE SLEEP APNEA (ADULT) (PEDIATR 09/28/2018 WILLIAMS CHAVEZ ANIMAL PHYSIOLOGY TEACHER Ot I12.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 09/28/2018 WILLIAMS CHAVEZ ANIMAL PHYSIOLOGY TEACHER Ot N18.9 CHRONIC KIDNEY DISEASE, UNSPECIFIED 09/29/2018 MICHELLE TOBAR WALLPAPER CONSULTANT Ot G47.33 OBSTRUCTIVE SLEEP APNEA (ADULT) (PEDIATR 09/29/2018 MICHELLE TOBAR WALLPAPER CONSULTANT Ot G47.33 OBSTRUCTIVE SLEEP APNEA (ADULT) (PEDIATR 09/30/2018 AMADOUMICHELLE WALLPAPER CONSULTANT Ot G47.33 OBSTRUCTIVE SLEEP APNEA (ADULT) (PEDIATR 09/30/2018 MICHELLE TOBAR WALLPAPER CONSULTANT Ot G47.33 OBSTRUCTIVE SLEEP APNEA (ADULT) (PEDIATR 10/05/2018 JAGDEEPML MENJIVAR WALLPAPER CONSULTANT Ot R50.9 FEVER, UNSPECIFIED 10/06/2018 ML GANNON WALLPAPER CONSULTANT Ot R50.9 FEVER, UNSPECIFIED 10/07/2018 SLOAN NICE MD Ot D50.9 IRON DEFICIENCY ANEMIA, UNSPECIFIED 10/07/2018 SLOAN NICE MD Ot D69.6 THROMBOCYTOPENIA, UNSPECIFIED 10/07/2018 SLOAN NICE MD Ot E78.5 HYPERLIPIDEMIA, UNSPECIFIED 10/07/2018 SLOAN NICE MD Ot I12.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 10/07/2018 SLOAN NICE MD Ot I25.10 ATHSCL HEART DISEASE OF [place] CORONARY 10/07/2018 SLOAN NICE MD Ot I48.91 UNSPECIFIED ATRIAL FIBRILLATION 10/07/2018 SLOAN NICE MD Ot N18.9 CHRONIC KIDNEY DISEASE, UNSPECIFIED 10/07/2018 SLOAN NICE MD Ot Z79.01 SHELTER (CURRENT) USE OF ANTICOAGULANT 10/07/2018 SLOAN NICE MD Ot Z79.899 OTHER SHELTER (CURRENT) DRUG THERAPY 10/07/2018 WILLIAMS CHAVEZP Ot I48.91 UNSPECIFIED ATRIAL FIBRILLATION 10/07/2018 WILLIAMS CHAVEZP Ot Z51.81 ENCOUNTER FOR THERAPEUTIC DRUG LEVEL [facility] 10/07/2018 WILLIAMS CHAVEZP Ot Z79.01 SHELTER (CURRENT) USE OF ANTICOAGULANT 10/08/2018 SLOAN NICE MD Ot D50.9 IRON DEFICIENCY ANEMIA, UNSPECIFIED 10/08/2018 SLOAN NICE MD Ot D69.6 THROMBOCYTOPENIA, UNSPECIFIED 10/08/2018 TEX SHIRLEY, SLOAN Ot E78.5 HYPERLIPIDEMIA, UNSPECIFIED 10/08/2018 TEX SHIRLEY, SLOAN Ot I12.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 10/08/2018 SLOAN NICE MD Ot I25.10 ATHSCL HEART DISEASE OF [place] CORONARY 10/08/2018 SLOAN NICE MD Ot I48.91 UNSPECIFIED ATRIAL FIBRILLATION 10/08/2018 SLOAN NICE MD Ot N18.9 CHRONIC KIDNEY DISEASE, UNSPECIFIED 10/08/2018 SLOAN NICE MD Ot Z79.01 HEALTHCARE PROF (CURRENT) USE OF ANTICOAGULANT 10/08/2018 SLOAN NICE MD Ot Z79.899 OTHER HEALTHCARE PROF (CURRENT) DRUG THERAPY 10/13/2018 JAZIEL PRATER MD R Ot Z29.8 ENCOUNTER FOR OTHER SPECIFIED PROPHYLACT 10/20/2018 WILLIAMS CHAVEZ L ANIMAL PHYSIOLOGY TEACHER Ot I12.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 10/20/2018 BAIWILLIAMS CANO L ANIMAL PHYSIOLOGY TEACHER Ot N18.9 CHRONIC KIDNEY DISEASE, UNSPECIFIED 10/22/2018 BAIMAJEREMIAHWILLIAMS L ANIMAL PHYSIOLOGY TEACHER Ot I48.91 UNSPECIFIED ATRIAL FIBRILLATION 10/22/2018 BAIMAWILLIAMS L ANIMAL PHYSIOLOGY TEACHER Ot Z51.81 ENCOUNTER FOR THERAPEUTIC DRUG LEVEL MON 10/22/2018 WILLIAMS CHAVEZ L ANIMAL PHYSIOLOGY TEACHER Ot Z79.01 HEALTHCARE PROF (CURRENT) USE OF ANTICOAGULANT 10/27/2018 WILLIAMS CHAVEZ L ANIMAL PHYSIOLOGY TEACHER Ot I48.91 UNSPECIFIED ATRIAL FIBRILLATION 10/27/2018 BAIMAWILLIAMS L ANIMAL PHYSIOLOGY TEACHER Ot Z51.81 ENCOUNTER FOR THERAPEUTIC DRUG LEVEL MON 10/27/2018 BAIMAWILLIAMS L ANIMAL PHYSIOLOGY TEACHER Ot Z79.01 SHELTER (CURRENT) USE OF ANTICOAGULANT 11/17/2018 JAZIEL PRATER MD R Ot Z29.8 ENCOUNTER FOR OTHER SPECIFIED PROPHYLACT 11/18/2018 JAZIEL PRATER MD R Ot Z29.8 ENCOUNTER FOR OTHER SPECIFIED PROPHYLACT 12/16/2018 BAIMAWILLIAMS L ANIMAL PHYSIOLOGY TEACHER Ot I48.91 UNSPECIFIED ATRIAL FIBRILLATION 12/16/2018 WILLIAMS CHAVEZ L ANIMAL PHYSIOLOGY TEACHER Ot Z51.81 ENCOUNTER FOR THERAPEUTIC DRUG LEVEL MON 12/16/2018 DORISMAWILLIAMS L ANIMAL PHYSIOLOGY TEACHER Ot Z79.01 SHELTER (CURRENT) USE OF ANTICOAGULANT 12/17/2018 BAIMA, WILLIAMS L ANIMAL PHYSIOLOGY TEACHER Ot I48.91 UNSPECIFIED ATRIAL FIBRILLATION 12/17/2018 DORISMA, WILLIAMS L ANIMAL PHYSIOLOGY TEACHER Ot Z51.81 ENCOUNTER FOR THERAPEUTIC DRUG LEVEL MON 12/17/2018 DORISMA WILLIAMS L ANIMAL PHYSIOLOGY TEACHER Ot Z79.01 SHELTER (CURRENT) USE OF ANTICOAGULANT 12/19/2018 MOI SHIRLEY, JAZIEL R Ot Z29.8 ENCOUNTER FOR OTHER SPECIFIED PROPHYLACT 12/21/2018 MOI SHIRLEY, JAZIEL R Ot Z29.8 ENCOUNTER FOR OTHER SPECIFIED PROPHYLACT 01/07/2019 DORISMA WILLIAMS L ANIMAL PHYSIOLOGY TEACHER Ot I48.91 UNSPECIFIED ATRIAL FIBRILLATION 01/07/2019 DORISMA, WILLIAMS L ANIMAL PHYSIOLOGY TEACHER Ot Z51.81 ENCOUNTER FOR THERAPEUTIC DRUG LEVEL MON 01/07/2019 SCOTT WILLIAMS L ANIMAL PHYSIOLOGY TEACHER Ot Z79.01 HEALTHCARE PROF (CURRENT) USE OF ANTICOAGULANT 01/10/2019 Ot 272.0 PURE HYPERCHOLESTEROLEM 01/10/2019 Ot 278.00 OBESITY, NOS 01/10/2019 Ot 287.5 THROMBOCYTOPENIA NOS 01/10/2019 Ot 403.90 HYPTNSV CHR KID DIS, UNSPEC, W CHR KD ST 01/10/2019 Ot 414.00 CORON ATHEROSCLER NOS TYPE VESSEL, NATIV 01/10/2019 Ot 427.31 ATRIAL FIBRILLATION 01/10/2019 Ot 447.9 ARTERIAL DISEASE NOS 01/10/2019 Ot 585.9 CHRONIC KIDNEY DISEASE, UNSPECIFIED 01/10/2019 Ot 780.79 OTH MALAISE FATIGUE 01/10/2019 Ot V12.61 PERSONAL HISTORY, PNEUMONIA (RECURRENT) 01/10/2019 Ot V58.61 ANTICOAGULANTS,LT,CURRENT USE 01/10/2019 BAIMA, WILLIAMS L ANIMAL PHYSIOLOGY TEACHER Ot 272.4 HYPERLIPIDEMIA NEC/NOS 01/10/2019 BAIMA, WILLIAMS L ANIMAL PHYSIOLOGY TEACHER Ot 401.9 HYPERTENSION NOS 01/10/2019 BAIMA, WILLIAMS L ANIMAL PHYSIOLOGY TEACHER Ot 414.00 CORON ATHEROSCLER NOS TYPE VESSEL, NATIV 01/10/2019 BAIMA, WILLIAMS L ANIMAL PHYSIOLOGY TEACHER Ot 427.31 ATRIAL FIBRILLATION 01/10/2019 BAIMA, WILLIAMS L ANIMAL PHYSIOLOGY TEACHER Ot 272.4 HYPERLIPIDEMIA NEC/NOS 01/10/2019 BAIMA, WILLIAMS L ANIMAL PHYSIOLOGY TEACHER Ot 401.9 HYPERTENSION NOS 01/10/2019 BAIMA, WILLIAMS L ANIMAL PHYSIOLOGY TEACHER Ot 414.9 CHR ISCHEMIC HRT DIS NOS 01/10/2019 BAIMA, WILLIAMS L ANIMAL PHYSIOLOGY TEACHER Ot 427.31 ATRIAL FIBRILLATION 01/10/2019 MOI SHIRLEY, JAZIEL R Ot 780.79 OTH MALAISE FATIGUE 01/10/2019 MOI SHIRLEY JAZIEL R Ot 429.3 CARDIOMEGALY 01/10/2019 MOI SHIRLEY, JAZIEL R Ot 786.2 COUGH 01/10/2019 MOI SHIRLEY, JAZIEL R Ot 794.4 ABN KIDNEY FUNCT STUDY 01/10/2019 MOI SHIRLEY JAZIEL R Ot I48.91 UNSPECIFIED ATRIAL FIBRILLATION 01/10/2019 MOI SHIRLEY JAZIEL R Ot Z51.81 ENCOUNTER FOR THERAPEUTIC DRUG LEVEL MON 01/10/2019 CHAR SHIRLEY FACC, AGNIESZKA FACP CCDS Ot D69.6 THROMBOCYTOPENIA, UNSPECIFIED 01/10/2019 CHAR SHIRLEY FACC, ALI FACP CCDS Ot E78.0 PURE HYPERCHOLESTEROLEMIA 01/10/2019 CHAR SHIRLEY FACC, ALI FACP CCDS Ot I12.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 01/10/2019 CHAR SHIRLEY FACC, AGNIESZKA FACP CCDS Ot I25.10 ATHSCL HEART DISEASE OF [place] CORONARY 01/10/2019 CHAR SHIRLEY FACC, AGNIESZKA FACP CCDS Ot I34.0 NONRHEUMATIC MITRAL (VALVE) INSUFFICIENC 01/10/2019 CHAR SHIRLEY FACC, ALI FACP CCDS Ot I48.0 PAROXYSMAL ATRIAL FIBRILLATION 01/10/2019 CHAR SHIRLEY FACC, ALI FACP CCDS Ot 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 01/10/2019 CHAR SHIRLEY FACC, ALI FACP CCDS Ot N18.2 CHRONIC KIDNEY DISEASE, STAGE 2 (MILD) 01/10/2019 CHAR SHIRLEY FACC, ALI FACP CCDS Ot I48.91 UNSPECIFIED ATRIAL FIBRILLATION 01/10/2019 CHAR SHIRLEY FACC, ALI FACP CCDS Ot Z79.01 HEALTHCARE PROF (CURRENT) USE OF ANTICOAGULANT 01/10/2019 CHAR SHIRLEY FACC, ALI FACP CCDS Ot E78.4 OTHER HYPERLIPIDEMIA 01/10/2019 CHAR SHIRLEY FACC, ALI FACP CCDS Ot I12.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 01/10/2019 CHAR SHIRLYE FACC, ALI FACP CCDS Ot I48.0 PAROXYSMAL ATRIAL FIBRILLATION 01/10/2019 CHAR MD FACC, ALI FACP CCDS Ot I49.5 SICK SINUS SYNDROME 01/10/2019 CHAR SHIRLEY FACC, ALI FACP CCDS Ot 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 01/10/2019 CHAR SHIRLEY FACC, ALI FACP CCDS Ot N18.2 CHRONIC KIDNEY DISEASE, STAGE 2 (MILD) 01/10/2019 CHAR BURGERC, ALI FACP CCDS Ot Z79.01 HEALTHCARE PROF (CURRENT) USE OF ANTICOAGULANT 01/10/2019 CHAR BURGERC, ALI FACP CCDS Ot E66.8 OTHER OBESITY 01/10/2019 CHAR BURGERC, ALI FACP CCDS Ot E78.5 HYPERLIPIDEMIA, UNSPECIFIED 01/10/2019 CHAR SHIRLEY FACC, ALI FACP CCDS Ot I12.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 01/10/2019 CHAR SHIRLEY FACC, ALI FACP CCDS Ot I25.10 ATHSCL HEART DISEASE OF [place] CORONARY 01/10/2019 CHAR SHIRLEY FACC, ALI FACP CCDS Ot I48.0 PAROXYSMAL ATRIAL FIBRILLATION 01/10/2019 CHAR SHIRLEY FACC, ALI FACP CCDS Ot I65.29 OCCLUSION AND STENOSIS OF UNSPECIFIED CA 01/10/2019 CHAR SHIRLEY FACC, ALI FACP CCDS Ot N18.2 CHRONIC KIDNEY DISEASE, STAGE 2 (MILD) 01/10/2019 CHAR SHIRLEY FACC, ALI FACP CCDS Ot Z79.01 SHELTER (CURRENT) USE OF ANTICOAGULANT 01/10/2019 CHAR SHIRLEY FACC, ALI FACP CCDS Ot Z95.0 PRESENCE OF CARDIAC PACEMAKER 01/10/2019 CHAR SHIRLEY FACC, ALI FACP CCDS Ot I12.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 01/10/2019 CHAR SHIRLEY FACC, ALI FACP CCDS Ot I48.0 PAROXYSMAL ATRIAL FIBRILLATION 01/10/2019 CHAR BURGERC, ALI FACP CCDS Ot N18.2 CHRONIC KIDNEY DISEASE, STAGE 2 (MILD) 01/10/2019 CHAR SHIRLEY FACC, ALI FACP CCDS Ot Z79.01 SHELTER (CURRENT) USE OF ANTICOAGULANT 01/10/2019 CHAR SHIRLEY FACC, ALI FACP CCDS Ot I10 ESSENTIAL (PRIMARY) HYPERTENSION 01/10/2019 CHAR BURGERC, ALI FACP CCDS Ot I25.10 ATHSCL HEART DISEASE OF [place] CORONARY 01/10/2019 CHAR SHIRLEY [facility], ALI FACP CCDS Ot I48.2 CHRONIC ATRIAL FIBRILLATION 01/10/2019 CHAR SHIRLEY [facility], ALI FACP CCDS Ot 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 AN 01/10/2019 CHAR SHIRLEY FACC, ALI FACP CCDS Ot R06.02 SHORTNESS OF BREATH 01/10/2019 CHAR SHIRLEY [facility], ALI FACP CCDS Ot Z79.01 HEALTHCARE PROF (CURRENT) USE OF ANTICOAGULANT 01/10/2019 CHAR SHIRLEY [facility], ALI FACP CCDS Ot E87.5 HYPERKALEMIA 01/10/2019 CHAR SHIRLEY [facility], ALI FACP CCDS Ot I08.3 COMB RHEUMATIC DISORD OF [place], AORTIC 01/10/2019 CHAR SHIRLEY [facility], ALI FACP CCDS Ot I10 ESSENTIAL (PRIMARY) HYPERTENSION 01/10/2019 CHAR SHIRLEY [facility], ALI FACP CCDS Ot I25.10 ATHSCL HEART DISEASE OF [place] CORONARY 01/10/2019 CHAR SHIRLEY [facility], ALI FACP CCDS Ot I48.2 CHRONIC ATRIAL FIBRILLATION 01/10/2019 CHAR SHIRLEY [facility], ALI FACP CCDS Ot R06.02 SHORTNESS OF BREATH 01/10/2019 CHAR SHIRLEY [facility], ALI FACP CCDS Ot Z79.01 HEALTHCARE PROF (CURRENT) USE OF ANTICOAGULANT 01/10/2019 WILLIAMS CHAVEZ ANIMAL PHYSIOLOGY TEACHER Ot I12.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 01/10/2019 WILLIAMS CHAVEZ Ot N18.9 CHRONIC KIDNEY DISEASE, UNSPECIFIED 01/10/2019 ML GANNON APRN Ot R50.9 FEVER, UNSPECIFIED 01/10/2019 SLOAN NICE MD Ot D50.9 IRON DEFICIENCY ANEMIA, UNSPECIFIED 01/10/2019 SLOAN NICE MD Ot D69.6 THROMBOCYTOPENIA, UNSPECIFIED 01/10/2019 SLOAN NICE MD Ot E78.5 HYPERLIPIDEMIA, UNSPECIFIED 01/10/2019 SLOAN NICE MD Ot I12.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 01/10/2019 SLOAN NICE MD Ot I25.10 ATHSCL HEART DISEASE OF [place] CORONARY 01/10/2019 SLOAN NICE MD Ot I48.91 UNSPECIFIED ATRIAL FIBRILLATION 01/10/2019 SLOAN NICE MD Ot N18.9 CHRONIC KIDNEY DISEASE, UNSPECIFIED 01/10/2019 SLOAN NICE MD Ot Z79.01 HEALTHCARE PROF (CURRENT) USE OF ANTICOAGULANT 01/10/2019 TEX SHIRLEY, SLOAN Ot Z79.899 OTHER HEALTHCARE PROF (CURRENT) DRUG THERAPY 01/10/2019 DORISWILLIAMS CANO Anuj AUSTIN Ot Z51.81 ENCOUNTER FOR THERAPEUTIC DRUG LEVEL MON 01/10/2019 WILLIAMS CHAVEZ Ot Z79.01 HEALTHCARE PROF (CURRENT) USE OF ANTICOAGULANT 01/11/2019 CHARLEY SLAUGHTER MD Ot 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 CLASSD ELSWHR W 01/11/2019 CHARLEY SLAUGHTER MD Ot F41.9 ANXIETY DISORDER, UNSPECIFIED 01/11/2019 CHARLEY SLAUGHTER MD Ot 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, CHILDHOOD-ONSET TYPE 01/11/2019 CHARLEY SLAUGHTER MD Ot G20 PARKINSON'S DISEASE 01/11/2019 CHARLEY SLAUGHTER MD Ot I25.10 ATHSCL HEART DISEASE OF [place] CORONARY 01/11/2019 CHARLEY SLAUGHTER MD Ot I25.2 OLD MYOCARDIAL INFARCTION 01/11/2019 CHARLEY SLAUGHTER MD Ot I48.91 UNSPECIFIED ATRIAL FIBRILLATION 01/11/2019 CHARLEY SLAUGHTER MD, Ot N18.9 CHRONIC KIDNEY DISEASE, UNSPECIFIED 01/11/2019 CHARLEY SLAUGHTER MD Ot Z79.01 SHELTER (CURRENT) USE OF ANTICOAGULANT 01/11/2019 CHARLEY SLAUGHTER MD Ot Z79.82 HEALTHCARE PROF (CURRENT) USE OF ASPIRIN 01/11/2019 CHARLEY SLAUGHTER MD Ot Z87.01 PERSONAL HISTORY OF PNEUMONIA (RECURRENT 01/11/2019 CHARLEY SLAUGHTER MD Ot Z87.442 PERSONAL HISTORY OF URINARY CALCULI 01/11/2019 CHARLEY SLAUGHTER MD Ot Z95.1 PRESENCE OF AORTOCORONARY BYPASS GRAFT 01/12/2019 CHARLEY SLAUGHTER MD Ot 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 CLASSD ELSWHR W 01/12/2019 CHARLEY SLAUGHTER MD Ot F41.9 ANXIETY DISORDER, UNSPECIFIED 01/12/2019 SUKHJINDER SHIRLEY, CHARLEY Cavazos Ot 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, CHILDHOOD-ONSET TYPE 01/12/2019 CHARLEY SLAUGHTER MD Ot G20 PARKINSON'S DISEASE 01/12/2019 CHARLEY SLAUGHTER MD Ot I25.10 ATHSCL HEART DISEASE OF [place] CORONARY 01/12/2019 CHARLEY SLAUGHTER MD Ot I25.2 OLD MYOCARDIAL INFARCTION 01/12/2019 CHARLEY SLAUGHTER MD Ot I48.91 UNSPECIFIED ATRIAL FIBRILLATION 01/12/2019 CHARLEY SLAUGHTER MD Ot N18.9 CHRONIC KIDNEY DISEASE, UNSPECIFIED 01/12/2019 CHARLEY SLAUGHTER MD Ot Z79.01 HEALTHCARE PROF (CURRENT) USE OF ANTICOAGULANT 01/12/2019 CHARLEY SLAUGHTER MD Ot Z79.82 HEALTHCARE PROF (CURRENT) USE OF ASPIRIN 01/12/2019 CHARLEY SLAUGHTER MD Ot Z87.01 PERSONAL HISTORY OF PNEUMONIA (RECURRENT 01/12/2019 CHARLEY SLAUGHTER MD Ot Z87.442 PERSONAL HISTORY OF URINARY CALCULI 01/12/2019 CHARLEY SLAUGHTER MD Ot Z95.1 PRESENCE OF AORTOCORONARY BYPASS GRAFT 01/19/2019 MOI SHIRLEY, JAZIEL R Ot Z29.8 ENCOUNTER FOR OTHER SPECIFIED PROPHYLACT 01/21/2019 JAZIEL PRATER MD R Ot Z29.8 ENCOUNTER FOR OTHER SPECIFIED PROPHYLACT 01/26/2019 WILLIAMS CHAVEZ ANIMAL PHYSIOLOGY TEACHER Ot Z51.81 ENCOUNTER FOR THERAPEUTIC DRUG LEVEL MON 01/26/2019 DORISMAWILLIAMS ANIMAL PHYSIOLOGY TEACHER Ot Z79.01 SHELTER (CURRENT) USE OF ANTICOAGULANT 02/02/2019 DORISMAWILLIAMS ANIMAL PHYSIOLOGY TEACHER Ot Z51.81 ENCOUNTER FOR THERAPEUTIC DRUG LEVEL MON 02/02/2019 DORISMAWILLIAMS ANIMAL PHYSIOLOGY TEACHER Ot Z79.01 HEALTHCARE PROF (CURRENT) USE OF ANTICOAGULANT 02/02/2019 WILLIAMS CHAVEZ ANIMAL PHYSIOLOGY TEACHER Ot Z51.81 ENCOUNTER FOR THERAPEUTIC DRUG LEVEL MON 02/02/2019 DORISMAWILLIAMS ANIMAL PHYSIOLOGY TEACHER Ot Z79.01 HEALTHCARE PROF (CURRENT) USE OF ANTICOAGULANT 02/08/2019 WILLIAMS CHAVEZ ANIMAL PHYSIOLOGY TEACHER Ot Z51.81 ENCOUNTER FOR THERAPEUTIC DRUG LEVEL [facility] 02/08/2019 WILLIAMS CHAVEZ [facility] Ot Z79.01 SHELTER (CURRENT) USE OF ANTICOAGULANT Procedures Code Description Performed By Performed On 37.72 INITIAL INSERT TRANS LEADS INTO ATRIUM 03/23/2012 37.83 INITIAL INSERTION OF DUAL-CHAMBER DEVICE 03/23/2012 34.91 THORACENTESIS 03/26/2012 45.16 ESOPHAGOGASTRODUODENOSCOPY [EGD] W/CLOSE 11/19/2012 45.23 COLONOSCOPY 11/19/2012 Results Test [...] Automated erythrocyte mean corpuscular hemoglobin concentration measurement (mass/volume) 34 g/dL 32-36 Automated erythrocyte distribution width ratio 13.2 % 10.0- 14.5 Automated blood platelet count (count/volume) 106 10*3/uL [...] Blood monocytes automated count (number/volume) 0.7 10*3 0.0- 1.0 Automated eosinophil count 0.2 10*3/uL 0.0-0.3 Automated [...] Serum or plasma aspartate aminotransferase measurement (enzymatic activity/volume) 27 U/L 5-34 Serum or plasma alanine aminotransferase measurement (enzymatic activity/volume) 21 U/L 0-55 Serum or plasma protein [...] plasma cholesterol in HDL measurement (mass/volume) 26 mg/dL 40-60 Cholesterol in LDL [mass/volume] in serum or plasma by direct assay 50 mg/dL 1-129 Serum or plasma cholesterol in VLDL measurement (mass/volume) 17 mg/dL 5-40 PT panel in platelet poor plasma [...] Automated erythrocyte mean corpuscular hemoglobin concentration measurement (mass/volume) 33 g/dL 32-36 Automated erythrocyte distribution width ratio 13.6 % 10.0- 14.5 Automated blood platelet count (count/volume) 126 10*3/uL [...] Blood monocytes automated count (number/volume) 1.2 10*3 0.0- 1.0 Automated eosinophil count 0.2 10*3/uL 0.0-0.3 Automated [...] NRG Blood erythrocyte morphology finding identification NORMAL [facility] Complete blood count (CBC) with automated white blood cell (WBC) differential - 01/10/19 19:25 Blood leukocytes automated count (number/volume) 5.5 10*3/uL 4.3-11.0 Blood erythrocytes automated count (number/volume) 3.97 10*6/uL 4.35-5.85 Venous blood hemoglobin measurement (mass/volume) 13.0 g/dL 13.3-17.7 Blood hematocrit (volume fraction) 38 % 40-54 Automated erythrocyte mean corpuscular volume 97 [foz_us] 80-99 Automated erythrocyte mean corpuscular hemoglobin (mass per erythrocyte) 33 pg 25-34 Automated erythrocyte mean corpuscular hemoglobin concentration measurement (mass/volume) 34 g/dL 32-36 Automated erythrocyte distribution width ratio 12.7 % 10.0- 14.5 Automated blood platelet count (count/volume) 107 10*3/uL 130-400 Automated blood platelet mean volume measurement 12.0 [foz_us] 7.4-10.4 Automated blood neutrophils/100 leukocytes 67 % 42-75 Automated blood lymphocytes/100 leukocytes 17 % 12-44 Blood monocytes/100 leukocytes 13 % 0-12 Automated blood eosinophils/100 leukocytes 3 % 0-10 Automated blood basophils/100 leukocytes 0 % 0-10 Blood neutrophils automated count (number/volume) 3.7 10*3 1.8-7.8 Blood lymphocytes automated count (number/volume) 0.9 10*3 1.0-4.0 Blood monocytes automated count (number/volume) 0.7 10*3 0.0- 1.0 Automated eosinophil count 0.1 10*3/uL 0.0-0.3 Automated blood basophil count (count/volume) 0.0 10*3/uL 0.0-0.1 PT panel in platelet poor plasma by coagulation assay - 01/10/19 19:25 Prothrombin time (PT) in platelet poor plasma by coagulation assay 24.0 s 12.2-14.7 INR in platelet poor plasma or blood by coagulation assay 2.1 0.8-1.4 Activated partial thromboplastin time (aPTT) in platelet poor plasma bycoagulation assay - 01/10/19 19:25 Activated partial thromboplastin time (aPTT) in platelet poor plasma bycoagulation assay 42 s 24-35 Comprehensive metabolic panel - 01/10/19 19:25 Serum or plasma sodium measurement (moles/volume) 140 mmol/L 135-145 Serum or plasma potassium measurement (moles/volume) 4.5 mmol/L 3.6-5.0 Serum or plasma chloride measurement (moles/volume) 105 mmol/L 98-107 Carbon dioxide 22 mmol/L 21-32 Serum or plasma anion gap determination (moles/volume) 13 mmol/L 5-14 Serum or plasma urea nitrogen measurement (mass/volume) 22 mg/dL 7-18 Serum or plasma creatinine measurement (mass/volume) 1.47 mg/dL 0.60-1.30 Serum or plasma urea nitrogen/creatinine mass ratio 15 NRG Serum or plasma creatinine measurement with calculation of estimated glomerular filtration rate 46 NRG Serum or plasma glucose measurement (mass/volume) 113 mg/dL 70-105 Serum or plasma calcium measurement (mass/volume) 9.5 mg/dL 8.5-10.1 Serum or plasma total bilirubin measurement (mass/volume) 0.6 mg/dL 0.1-1.0 Serum or plasma alkaline phosphatase measurement (enzymatic activity/volume) 83 U/L 40-136 Serum or plasma aspartate aminotransferase measurement (enzymatic activity/volume) 33 U/L 5-34 Serum or plasma alanine aminotransferase measurement (enzymatic activity/volume) 16 U/L 0-55 Serum or plasma protein measurement (mass/volume) 6.7 g/dL 6.4-8.2 Serum or plasma albumin measurement (mass/volume) 4.0 g/dL 3.2-4.5 CALCIUM CORRECTED 9.5 mg/dL 8.5-10.1 Magnesium - 01/10/19 19:25 Magnesium 2.2 mg/dL 1.8-2.4 Serum or plasma thyrotropin measurement by detection limit <=0.05 miu/l (units/volume) - 01/10/19 19:25 Serum or plasma thyrotropin measurement by detection limit <=0.05 miu/l (units/volume) 1.77 u[iU]/mL 0.35-4.94 Complete urinalysis with reflex to culture - 01/10/19 21:25 Urine color determination YELLOW NRG Urine clarity determination CLEAR NRG Urine pH measurement by test strip 7 5-9 Specific gravity of urine by test strip 1.005 1.016-1.022 Urine protein assay by test strip, semi-quantitative NEGATIVE NEGATIVE Urine glucose detection by automated test strip NEGATIVE NEGATIVE Erythrocytes detection in urine sediment by light microscopy NEGATIVE NEGATIVE Urine ketones detection by automated test strip NEGATIVE NEGATIVE Urine nitrite detection by test strip NEGATIVE NEGATIVE Urine total bilirubin detection by test strip NEGATIVE NEGATIVE Urine urobilinogen measurement by automated test strip (mass/volume) NORMAL NORMAL Urine leukocyte esterase detection by dipstick NEGATIVE NEGATIVE Automated urine sediment erythrocyte count by microscopy (number/high power field) [HPF] NRG Automated urine sediment leukocyte count by microscopy (number/high power field) RARE NRG Bacteria detection in urine sediment by light microscopy NEGATIVE NRG Crystals detection in urine sediment by light microscopy NONE NRG Casts detection in urine sediment by light microscopy NONE NRG Mucus detection in urine sediment by light microscopy NEGATIVE NRG Complete urinalysis with reflex to culture NO NRG Capillary blood glucose measurement by glucometer (mass/volume) - 01/11/19 04:49 Capillary blood glucose measurement by glucometer (mass/volume) 93 mg/dL 70-110 Lipid Panel - 01/11/19 04:50 C/HDL 4.6 3.7-6.7 Cholesterol 96 mg/dL 100-240 HDL 21 mg/dL 30-85 LDL-Calculated 38 mg/dL 0-100 Trig 183 mg/dL 35-160 VLDL 37 mg/dL 0-42 Protime - 01/14/19 05:10 INR 2.1 1.0-4.0 Protime 25.0 Sec 9.9-12.8 Protime - 01/18/19 05:35 INR 2.0 1.0-4.0 Protime 23.8 Sec 9.9-12.8 Comprehensive Metabolic Panel - 01/25/19 05:12 Albumin 3.3 g/dL 3.6-5.1 ALP 64 U/L 35-130 ALT 27 U/L 6-45 Anion Gap 13 6-14 AST 21 U/L 2-40 BUN 28 mg/dL 5-25 Calcium 9.0 mg/dL 8.3-10.4 Chloride 105 mmol/L 95-114 CO2 26 mEq/L 22-33 Creat 1.35 mg/dL 0.50-1.50 eGFR 50 mL/min/1.73m2 >59 Globulin 2.2 g/dL 2.3-3.5 Glucose 88 mg/dL 70-110 Osmo 292 280-295 Potassium 4.6 mmol/L 3.5-5.3 Sodium 139 mmol/L 134-148 TBil 0.4 mg/dL 0.2-1.2 TP 5.5 g/dL 6.0-8.3 PT panel in platelet poor plasma by coagulation assay - 02/02/19 11:14 Prothrombin time (PT) in platelet poor plasma by coagulation assay 20.4 s 12.2-14.7 INR in platelet poor plasma or blood by coagulation assay 1.7 0.8-1.4 Encounters ACCT No. Visit Date/Time Discharge Status Pt. Type Provider Facility Loc./Unit Complaint [id number] 06/08/2013 11:15:00 06/08/2013 23:59:59 CLS Outpatient IWONA SEB BRITO [id number] 02/02/2019 10:58:00 02/02/2019 23:59:59 CLS Outpatient WILLIAMS CHAVEZ [facility] LAB CHRONIC ANTICOAGULATION [id number] 01/10/2019 09:57:00 01/19/2019 00:01:00 DIS Outpatient JAZIEL PRATER MD [facility] [place] [address] CARDIAC REHAB PHASE 3 [id number] 01/10/2019 18:38:00 01/11/2019 00:46:00 DIS Emergency SUKHJINDER SHIRLEY, CHARLEY Cavazos [facility] ER HX OF DEMENTIA/UNABLE TO CALM DOWN [id number] 01/03/2019 09:40:00 01/03/2019 23:59:59 CLS Outpatient WILLIAMS CHAVEZ [facility] LAB Z79.01,I48.0 [id number] 12/13/2018 11:30:00 12/19/2018 00:01:00 DIS Outpatient JAZIEL PRATER MD [facility] CR3 CARDIAC REHAB PHASE 3 [id number] 11/22/2018 09:33:00 12/16/2018 00:01:00 DIS Outpatient WILLIAMS CHAVEZ [facility] LAB Z79.01,I48.0 [id number] 11/17/2018 10:21:00 11/17/2018 00:01:00 DIS Outpatient JAZIEL PRATER MD [facility] [place] [address] CARDIAC REHAB PHASE 3 [id number] 10/13/2018 10:23:00 10/13/2018 00:01:00 DIS Outpatient JAZIEL PRATER MD [facility] [place] [address] CARDIAC REHAB PHASE 3 [id number] 10/08/2018 00:11:00 10/08/2018 23:59:59 CLS Preadmit SLOAN NICE MD [facility] ONC [id number] 07/09/2018 13:01:00 10/07/2018 00:01:00 DIS Outpatient SLOAN NICE MD [facility] ONC [id number] 10/06/2018 00:12:00 10/06/2018 23:59:59 CLS Preadmit ML GANNON APRN [facility] LAB FEVER OF UNKNOWN ORIGIN [id number] 07/07/2018 16:13:00 10/05/2018 00:01:00 DIS Outpatient ML GANNON WALLPAPER CONSULTANT [facility] LAB FEVER OF UNKNOWN ORIGIN [id number] 09/29/2018 19:39:00 09/30/2018 06:40:00 DIS Outpatient MICHELLE TOBAR APRN [facility] SLEEP ANTONINO G47.33 [id number] 09/27/2018 11:17:00 09/27/2018 23:59:59 CLS Outpatient WILLIAMS CHAVEZ [facility] LAB CKD [id number] 09/10/2018 10:46:00 09/12/2018 00:01:00 DIS Outpatient JAZIEL PRATER MD [facility] [place] [address] CARDIAC REHAB PHASE 3 [id number] 08/06/2018 11:44:00 08/11/2018 00:01:00 DIS Outpatient JAZIEL PRATER MD [facility] [place] [address] CARDIAC REHAB PHASE 3 [id number] 06/28/2018 10:09:00 07/11/2018 00:01:00 DIS Outpatient JAZIEL PRATER MD [facility] CARDIAC REHAB PHASE 3 [id number] 06/15/2018 18:28:00 06/15/2018 21:15:00 DIS Emergency PITO SHIRLEY, HUMA Boris [facility] ER FELL AT HOME, LEFT HAND,RT KNEE [id number] 06/10/2018 09:26:00 06/14/2018 00:01:00 DIS Outpatient WILLIAMS CHAVEZ [facility] LAB Z79.01,I48.0 [id number] 06/10/2018 08:41:00 06/10/2018 23:59:59 CLS Outpatient CHAR SHIRLEY FACC, AGNIESZKA FRIEND CCDS [facility] CARD SOB,CHRONIC ATRIAL FIBRILLATION,HYPERTENSION [id number] 06/09/2018 10:12:00 06/09/2018 00:01:00 DIS Outpatient JAZIEL PRATER MD [facility] CARDIAC REHAB PHASE 3 [id number] 05/25/2018 07:24:00 05/25/2018 23:59:59 CLS Outpatient CHAR SHIRLEY FACC, AGNIESZKA FRIEND CCDS [facility] CARD SOB,CHRONIC ATRIAL FIBRILLATION,HYPERTENSION [id number] 05/05/2018 16:40:00 05/05/2018 00:01:00 DIS Outpatient JAZIEL PRATER MD R [facility] CARDIAC REHAB PHASE 3 [id number] 03/29/2018 13:45:00 03/29/2018 23:59:59 CLS Outpatient JAZIEL PRATER MD R [facility] CARDIAC REHAB PHASE 3 [id number] 02/12/2018 11:07:00 03/14/2018 00:01:00 DIS Outpatient WILLIAMS CHVAEZ [facility] LAB Z79.01,I48.0 [id number] 03/01/2018 10:00:00 03/03/2018 00:01:00 DIS Outpatient JAZIEL PRATER MD [facility] CARDIAC REHAB PHASE 3 [id number] 01/29/2018 17:38:00 01/31/2018 00:01:00 DIS Outpatient JAZIEL PRATER MD [facility] CARDIAC REHAB PHASE 3 [id number] 12/28/2017 11:46:00 12/30/2017 00:01:00 DIS Outpatient JAZIEL PRATER MD R [facility] CARDIAC REHAB PHASE 3 [id number] 11/13/2017 12:34:00 12/13/2017 00:01:00 DIS Outpatient WILLIAMS CHAVEZ [facility] LAB [id number] 11/24/2017 14:15:00 11/24/2017 23:59:59 CLS Outpatient CHAR SHIRLEY FACC, ALI FACP CCDS [facility] LAB I10,N18.2 [id number] 11/13/2017 12:24:00 11/13/2017 23:59:59 CLS Outpatient CHAR SHIRLEY FACC, ALI FACP CCDS [facility] LAB I65.23, [id number] 07/15/2017 11:44:00 09/16/2017 00:01:00 DIS Outpatient SLOAN NICE MD [facility] ONC [id number] 08/14/2017 12:26:00 09/13/2017 00:01:00 DIS Outpatient WILLIAMS CHAVEZ [facility] LAB [id number] 05/18/2017 08:27:00 05/30/2017 00:01:00 DIS Outpatient WILLIAMS CHAVEZ [facility] LAB [id number] 05/18/2017 08:52:00 05/18/2017 23:59:59 CLS Outpatient CHAR SHIRLEY FACC, ALI FACP CCDS [facility] LAB I65.23,Z79.01,N18.2,E78.4,I10,I48.0,I49.5 [id number] 02/12/2017 10:43:00 03/10/2017 00:01:00 DIS Outpatient ROGELIO CORTES MD [facility] LAB [id number] 01/14/2017 00:11:00 01/14/2017 23:59:59 CLS Preadmit CHAR SHIRLEY FACC, ALI FACP CCDS [facility] LAB A-FIB,[place] [id number] 12/12/2016 13:35:00 01/13/2017 00:01:00 DIS Outpatient CHAR SHIRLEY FACC, ALI FACP CCDS [facility] LAB A-FIB,[place] [id number] 06/12/2016 08:55:00 09/10/2016 00:01:00 DIS Outpatient ROGELIO CORTES MD [facility] ONC [id number] 07/15/2016 09:37:00 08/05/2016 00:01:00 DIS Outpatient CHAR SHIRLEY FACC, ALI FACP CCDS [facility] LAB A-FIB,[place] [id number] 04/03/2016 11:09:00 04/29/2016 00:01:00 DIS Outpatient CHAR SHIRLEY FACC, ALI FACP CCDS [facility] LAB A-FIB,[place] [id number] 12/17/2015 12:11:00 01/28/2016 00:01:00 DIS Outpatient CHAR SHIRLEY FACC, ALI FACP CCDS [facility] LAB A-FIB,[place] [id number] 01/04/2016 09:32:00 01/04/2016 23:59:59 CLS Outpatient CHAR SHIRLEY FACC, ALI FACP CCDS [facility] CARD AFIB [id number] 01/04/2016 10:47:00 01/04/2016 13:20:00 DIS Emergency HUMA SHELDON MD [facility] ER LEFT LEG PAIN/SWELLING [id number] 11/02/2015 14:34:00 11/02/2015 23:59:59 CLS Outpatient JAZIEL PRATER MD [facility] LAB UNSPECIFIED ARTRIAL FEBRILLATION [id number] 10/31/2015 13:43:00 11/01/2015 14:40:00 DIS Inpatient JAZIEL PRATER MD [facility] CSD ATYPICAL CHEST PAIN CHRONIC RENAL INSUFFICIENCY [id number] 10/01/2015 12:33:00 10/10/2015 00:01:00 DIS Outpatient CHAR SHIRLEY FACJanay, ALI FACP CCDS [facility] LAB A-FIB,[place] [id number] 06/14/2015 10:21:00 09/12/2015 00:01:00 DIS Outpatient ROGELIO CORTES MD [facility] ONC [id number] 05/28/2015 12:12:00 05/30/2015 00:01:00 DIS Outpatient CHAR SHIRLEY FACJanay, ALI FACP CCDS [facility] LAB A-FIB,[place] [id number] 04/12/2015 11:37:00 05/06/2015 00:01:00 DIS Outpatient CHAR SHIRLEY FACC, ALI FACP CCDS [facility] LAB A-FIB,[place] [id number] 04/23/2015 11:31:00 04/23/2015 23:59:59 CLS Outpatient JAZIEL PRATER MD [facility] LAB BUN/CREAT [id number] 03/30/2015 10:59:00 03/30/2015 23:59:59 CLS Outpatient JAZIEL PRATER MD [facility] RAD PERSISTENT COUGH [id number] 03/05/2015 15:34:00 03/05/2015 23:59:59 CLS Outpatient JAZIEL PRATER MD [facility] LAB MALAISE [id number] 11/14/2014 13:17:00 02/12/2015 00:01:00 DIS Outpatient ROGELIO CORTES MD [facility] ONC [id number] 01/19/2015 14:04:00 02/01/2015 00:01:00 DIS Outpatient CAHR SHIRLEY FACJanay, ALI FACP CCDS [facility] LAB A-FIB,[place] [id number] 12/19/2014 08:49:00 12/19/2014 23:59:59 CLS Outpatient WILLIAMS CHAVEZ [facility] LAB HYPERTENSION, A FIB, HYPERLIPIDEMIA, CORONARY BILLY [id number] 11/29/2014 10:35:00 11/29/2014 23:59:59 CLS Outpatient BAIWILLIAMS CANO [facility] CARD CAD,HTN,HLP [id number] 10/04/2014 15:05:00 10/04/2014 23:59:59 CLS Outpatient CHAR SHIRLEY FACC, AGNIESZKA FRIEND CCDS [facility] LAB A-FIB,[place] [id number] 05/16/2014 12:55:00 08/14/2014 00:01:00 DIS Outpatient ROGELIO CORTES MD [facility] ONC [id number] 07/19/2014 10:57:00 07/19/2014 12:54:00 DIS Emergency CHARLEY SLAUGHTER MD [facility] ER WEAKNESS DIARRHEA [id number] 06/22/2014 10:06:00 07/03/2014 00:01:00 DIS Outpatient CHAR SHIRLEY FACC, AGNIESZKA FRIEND CCDS [facility] LAB A-FIB,[place] [id number] 01/11/2014 12:35:00 04/11/2014 00:01:00 DIS Outpatient ROGELIO CORTES MD [facility] ONC [id number] 03/21/2014 09:18:00 03/22/2014 00:01:00 DIS Outpatient BAIWILLIAMS CANO [facility] LAB A-FIB,[place] [id number] 10/12/2013 12:49:00 01/04/2014 15:17:00 DIS Outpatient ROGELIO CORTES MD [facility] ONC [id number] 11/14/2013 12:43:00 11/30/2013 00:01:00 DIS Outpatient WILLIAMS CHAVEZ [facility] LAB A-FIB,[place] [id number] 07/13/2013 12:54:00 10/11/2013 00:01:00 DIS Outpatient ROGELIO CORTES MD [facility] ONC [id number] 07/12/2013 15:19:00 08/24/2013 00:01:00 DIS Outpatient WILLIAMS CHAVEZ [facility] LAB A-FIB,[place] [id number] 07/14/2013 08:37:00 07/14/2013 23:59:59 CLS Outpatient BAIMA, WILLIAMS L [employer] [facility] LAB HYPERLIPIDEMIA [id number] 07/05/2013 10:49:00 07/05/2013 18:00:00 DIS Outpatient CHAR SHIRLEY FACC, AGNIESZKA FRIEND CCDS [facility] CATH POSTITVE STRESS TEST,CAD,HLP,HTN [id number] 06/30/2013 07:31:00 06/30/2013 23:59:59 CLS Outpatient CHAR SHIRLEY FACJanay, AGNIESZKA FRIEND CCDS [facility] RAD CHEST DISCOMFORT,CAD,HX OF CABG [id number] 05/23/2013 14:50:00 06/24/2013 09:54:00 DIS Outpatient ROGELIO CORTES MD [facility] ONC [id number] 04/07/2013 14:55:00 05/10/2013 00:01:00 DIS Outpatient BAIMA, WILLIAMS L [employer] [facility] LAB A-FIB,[place] [id number] 04/11/2013 10:25:00 04/11/2013 23:59:59 CLS Outpatient BAIMA, WILLIAMS L [employer] [facility] LAB CHF [id number] 04/04/2013 11:21:00 04/04/2013 23:59:59 CLS Outpatient BAIMA, WILLIAMS L [employer] [facility] LAB CHF [id number] 03/29/2013 11:32:00 03/29/2013 23:59:59 CLS Outpatient BAIMA, WILLIAMS L [employer] [facility] LAB DIURETIC TR ELEVATED BNP [id number] 03/23/2013 07:37:00 03/23/2013 23:59:59 CLS Outpatient BAIMA, WILLIAMS L [employer] [facility] RAD ELEVATED LIVER ENZYMES [id number] 03/17/2013 08:27:00 03/17/2013 23:59:59 CLS Outpatient CHAR SHIRLEY FACJanay, AGNIESZKA FRIEND CCDS [facility] LAB LEG SWELLING,A-FIB, [id number] 02/09/2019 10:32:00 ACT Outpatient SEGJAZIEL ADAMSON MD [facility] CR3 CARDIAC REHAB PHASE 3 [id number] 10/30/2015 10:34:00 Document Registration [id number] 10/30/2015 10:34:00 Document Registration [id number] 05/16/2014 08:56:00 Document Registration [id number] 01/26/2013 11:35:00 Document Registration [id number] 11/17/2012 19:55:00 Document Registration [id number] 10/18/2012 12:30:00 Document Registration [id number] 07/29/2012 09:27:00 Document Registration [id number] 06/14/2012 11:49:00 Document Registration [id number] 06/14/2012 08:47:00 Document Registration [id number] 05/05/2012 14:07:00 Document Registration [id number] 04/26/2012 11:56:00 Document Registration [id number] 04/21/2012 09:46:00 Document Registration [id number] 03/29/2012 09:20:00 Document Registration [id number] 03/22/2012 16:00:00 Document Registration [id number] 03/19/2012 13:28:00 Document Registration [id number] 02/27/2012 11:47:00 Document Registration [id number] 12/28/2011 14:14:00 Document Registration [id number] 12/01/2011 06:53:00 Document Registration [id number] 11/07/2011 12:08:00 Document Registration [id number] 11/06/2011 10:30:00 Document Registration [id number] 10/31/2011 11:23:00 Document Registration [id number] 10/29/2011 16:17:00 Document Registration [id number] 10/20/2011 06:44:00 Document Registration [id number] 10/13/2011 10:46:00 Document Registration [id number] 09/09/2011 05:05:00 Document Registration [id number] 08/15/2011 11:11:00 Document Registration [id number] 06/20/2011 08:07:00 Document Registration [id number] 01/11/2019 01:26:00 01/26/2019 11:30:00 DIS Inpatient B[facility]YCH[facility]O [facility] IGLESIA [id number] 01/11/2019 01:59:50 Document Registration
[2019-02-10 17:39] LABS: INR 1.8 (0.8-1.4)
[2019-02-10 17:45] LABS: ALANINE AMINOTRANSFERASE 24 U/L (0-55); ALBUMIN 4.2 GM/DL (3.2-4.5); ALKALINE PHOSPHATASE 92 U/L (40-136); BILIRUBIN,TOTAL 0.7 MG/DL (0.1-1.0); BUN/CREATININE RATIO 13; CALCIUM 9.7 MG/DL (8.5-10.1); CARBON DIOXIDE 30 MMOL/L (21-32); CHLORIDE 101 MMOL/L (98-107); CREATININE SERUM 1.55 MG/DL (0.60-1.30); GFR ESTIMATED 43; GLUCOSE 101 MG/DL (70-105); POTASSIUM 4.5 MMOL/L (3.6-5.0); SODIUM 138 MMOL/L (135-145); TOTAL PROTEIN 7.2 GM/DL (6.4-8.2)
--- NOTE | 2019-02-10 17:55 | NUR ---
TO DESK REPORTS THAT PATIENT C/O L SIDE ABD PAIN DR NOTIFIED.
--- NOTE | 2019-02-10 18:00 | NUR ---
B/P 84/59 TO ROOM CUFF NOT ON PATIENT.
[2019-02-10] MEDS ORDERED: NS IV 500 ML 500 ML IV ONE (18:06)
--- NOTE | 2019-02-10 18:06 | Diagnostic Imaging Report ---
INDICATION: Chest pain. TECHNIQUE: Single-view chest, 5:50 p.m. CORRELATION STUDY: 07/07/2018. FINDINGS: Left-sided pacemaker. Cardiac enlargement. Post-sternotomy changes. Vasculature does not appear to be overly distended. Lung barragan appearing generally clear given limited depth of inspiration. IMPRESSION: 1. Cardiac enlargement with post-sternotomy changes. Negative for acute abnormality. Dictated by: Dictated on workstation # [id number]
[2019-02-10 18:18] VITALS: BP 129/60
--- NOTE | 2019-02-10 19:00 | NUR ---
Recieved report from CHRISTOHPE Ann to assume care of pt @ this time.
[2019-02-10] MEDS ORDERED: ENOXAPARIN 100 MG/1 ML (LOVENOX) SYR SC ONE (20:15)
--- OUTSIDE RECORDS SUMMARY | 2019-02-10 21:15 | XMS REPORT | Continuity of Care Document ---
Author Organization Unknown Address Unknown Allergies Active Description Code Type Severity Reaction Onset Reported/Identified Relationship to Patient Clinical Status Yes NO KNOWN DRUG ALLERGIES UNKNOWN NO KNOWN DRUG ALLERG Yes NO KNOWN DRUG ALLERGIES UNKNOWN UNKNOWN Yes No Known Drug Allergies [id number] Drug Allergy Unknown N/A 11/18/2012 Medications Medication [...] MG (OMEGA 3) MG 01/11/2019 02/09/2019 Daily&0900 Eqtfqitu-btxl-gak-folic acid) tab,CHEWable (Centrum) TAB 01/11/2019 02/09/2019 Daily&0900 [...] Ot V58.61 ANTICOAGULANTS,LT,CURRENT USE 05/10/2013 WILLIAMS CHAVEZ RN COMPLIANCE Ot 427.31 ATRIAL FIBRILLATION 05/10/2013 BAIMAWILLIAMS RN COMPLIANCE Ot V58.61 ANTICOAGULANTS,LT,CURRENT USE 06/08/2013 BUSTILLO DO, [...] FACP CCDS Ot 414.01 CORONARY ATHEROSCLEROSIS OF [place] CORON 07/05/2013 AGNIESZKA PARDO MD, FACCP CCDS [...] V58.69 OTH MED,LT,CURRENT USE 08/24/2013 WILLIAMS CHAVEZ RN COMPLIANCE Ot 427.31 ATRIAL FIBRILLATION 08/24/2013 WILLIAMS CHAVEZ RN COMPLIANCE Ot V58.61 ANTICOAGULANTS,LT,CURRENT USE 10/11/2013 ROGELIO CORTES [...] Ot V58.69 OTH MED,LT,CURRENT USE 11/30/2013 WILLIAMS HCAVEZ RN COMPLIANCE Ot 427.31 ATRIAL FIBRILLATION 11/30/2013 WILLIAMS CHAVEZ RN COMPLIANCE Ot V58.61 ANTICOAGULANTS,LT,CURRENT USE 01/04/2014 ROGELIO CORTES [...] V58.69 OTH MED,LT,CURRENT USE 03/22/2014 WILLIAMS CHAVEZ RN COMPLIANCE Ot 427.31 ATRIAL FIBRILLATION 03/22/2014 WILLIAMS CHAVEZ RN COMPLIANCE Ot V58.61 ANTICOAGULANTS,LT,CURRENT USE 04/11/2014 ROGELIO CORTES [...] CCDS Ot V58.61 01/02/2015 BAIMA, WILLIAMS L RN COMPLIANCE Ot 272.4 01/02/2015 BAIMA, WILLIAMS L RN COMPLIANCE Ot 401.9 01/02/2015 BAIMA, WILLIAMS L RN COMPLIANCE Ot 414.00 01/02/2015 BAIMA, WILLIAMS L RN COMPLIANCE Ot 427.31 01/19/2015 BAIMA, WILLIAMS L RN COMPLIANCE Ot 272.4 01/19/2015 BAIMA, WILLIAMS L RN COMPLIANCE Ot 401.9 01/19/2015 BAIMA, WILLIAMS L RN COMPLIANCE Ot 414.9 01/19/2015 BAIMA, WILLIAMS L RN COMPLIANCE Ot 427.31 02/01/2015 CHAR SHIRLEY FACC, AGNIESZKA [...] JAZIEL R Ot 429.3 04/20/2015 MOI SHIRLEY, JAZIEL R Ot 786.2 05/06/2015 CHAR SHIRLEY [...] SEBASTIAN SHIRLEY, ROGELIO K Ot 427.31 06/13/2015 SEBSATIAN SHIRLEY, ROGELIO K Ot 585.9 06/13/2015 SEBASTIAN [...] D50.9 IRON DEFICIENCY ANEMIA, UNSPECIFIED 09/12/2015 SEBASTIAN SIHRLEY, ROGELIO Alberts Ot D69.6 THROMBOCYTOPENIA, UNSPECIFIED 09/12/2015 SEBASTIAN SHIRLEY ROGELIO Aristeo Ot E78.5 HYPERLIPIDEMIA, UNSPECIFIED 09/12/2015 ROGELIO CORTES MD Ot I12.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 09/12/2015 SEBASTIAN SHIRLEY ROGELIO Aristeo Ot I25.10 ATHSCL HEART DISEASE OF [place] CORONARY 09/12/2015 ROGELIO CORTES MD Ot I48.91 UNSPECIFIED ATRIAL FIBRILLATION 09/12/2015 ROGELIO CORTES MD Ot N18.9 CHRONIC KIDNEY DISEASE, UNSPECIFIED 09/12/2015 SEBASTIAN SHIRLEY ROGELIO Aristeo Ot Z79.01 SENIOR LIVING (CURRENT) USE OF ANTICOAGULANT 09/12/2015 ROGELIO CORTES MD Ot Z79.899 OTHER MORTGAGE BRANCH MANAGER (CURRENT) DRUG THERAPY 10/10/2015 CHAR SHIRLEY FACC, ALI FACP CCDS Ot I48.91 UNSPECIFIED ATRIAL FIBRILLATION 10/10/2015 CHAR SHIRLEY FACC, ALI FACP CCDS Ot Z51.81 ENCOUNTER FOR THERAPEUTIC DRUG LEVEL MON 10/10/2015 CHAR SHIRLEY FACC ALI FACP CCDS Ot Z79.01 SENIOR LIVING [...] FACP CCDS Ot 729.81 10/30/2015 CHAR SHIRLEY [facility], ALI FACP CCDS Ot 786.09 10/30/2015 CHAR SHIRLEY [facility], ALI FACP CCDS Ot V58.69 10/30/2015 BAIMA, WILLIAMS L RN COMPLIANCE Ot 790.6 10/30/2015 BAIMA, WILLIAMS L RN COMPLIANCE Ot 790.6 10/30/2015 BAIMA, WILLIAMS L RN COMPLIANCE Ot 428.0 10/30/2015 BAIMA, WILLIAMS L RN COMPLIANCE Ot 428.0 10/30/2015 CHAR SHIRLEY [facility], ALI FACP CCDS Ot 414.00 10/30/2015 CHAR SHIRLEY [facility], [facility] FACP CCDS Ot 429.3 10/30/2015 CHAR SHIRLEY [facility], ALI FACP CCDS Ot 786.59 10/30/2015 CHAR SHIRLEY [facility], [facility] FACP CCDS Ot V45.81 10/30/2015 BAIMA, WILLIAMS L RN COMPLIANCE Ot 272.4 10/30/2015 Ot 272.0 10/30/2015 Ot 278.00 10/30/2015 Ot 287.5 10/30/2015 Ot 403.90 10/30/2015 Ot 414.00 10/30/2015 Ot 427.31 10/30/2015 Ot 447.9 10/30/2015 Ot 585.9 10/30/2015 Ot 780.79 10/30/2015 Ot V12.61 10/30/2015 Ot V58.61 10/30/2015 BAIMA, WILLIAMS L RN COMPLIANCE Ot 272.4 10/30/2015 BAIMA, WILLIAMS L RN COMPLIANCE Ot 401.9 10/30/2015 BAIMA, WILLIAMS L RN COMPLIANCE Ot 414.00 10/30/2015 BAIMA, WILLIAMS L RN COMPLIANCE Ot 427.31 10/30/2015 BAIMA, WILLIAMS L RN COMPLIANCE Ot 272.4 10/30/2015 BAIMA, WILLIAMS L RN COMPLIANCE Ot 401.9 10/30/2015 BAIMA, WILLIAMS L RN COMPLIANCE Ot 414.9 10/30/2015 BAIMA, WILLIAMS L RN COMPLIANCE Ot 427.31 10/30/2015 MOI SHIRLEY, JAZIEL R Ot 780.79 10/30/2015 MOI SHIRLEY, JAZIEL R Ot 429.3 10/30/2015 MOI SHIRLEY, JAZIEL R Ot 786.2 10/30/2015 MOI SHIRLEY, JAZIEL R Ot 794.4 10/30/2015 SEBASTIAN SHIRLEY, ROGELIO Alberts Ot D50.9 10/30/2015 SEBASTIAN SHIRLEY, ROGELOI K Ot D69.6 10/30/2015 SEBASTIAN SHIRLEY, ROGELIO [...] KIDNEY DISEASE W ST 11/01/2015 MOI SHIRLEY, JAZIEL R Ot I25.10 ATHSCL HEART DISEASE OF [place] CORONARY 11/01/2015 MOI SHIRLEY, JAZIEL R Ot [...] 11/01/2015 MOI SHIRLEY, JAZIEL R Ot Z79.01 MORTGAGE BRANCH MANAGER (CURRENT) USE OF ANTICOAGULANT 11/01/2015 MOI SHIRLEY, [...] AGNIESZKA PARDO MD, FACCP CCDS Ot Z79.01 MORTGAGE BRANCH MANAGER (CURRENT) USE OF ANTICOAGULANT 01/04/2016 AGNIESZKA PARDO MD, FACCP CCDS Ot I10 ESSENTIAL (PRIMARY) HYPERTENSION 01/04/2016 CHAR SHIRLEY FACC, AGNIESZKA BURGERP CCDS Ot I10 ESSENTIAL (PRIMARY) HYPERTENSION 01/04/2016 HUMA SHELDON MD Ot S80.12XA CONTUSION OF LEFT LOWER LEG, INITIAL ENC 01/04/2016 HUMA SHELDON MD, Ot V58.3XXA OCCUP OF PK-UP/VAN INJ IN NONCTRIHEALTH 01/04/2016 HUMA SHELDON MD Ot Y99.8 OTHER EXTERNAL CAUSE STATUS 01/04/2016 HUMA SHELDON MD Ot Z79.01 MORTGAGE BRANCH MANAGER (CURRENT) USE OF ANTICOAGULANT 01/04/2016 HUMA SHELDON MD Ot Z95.0 PRESENCE OF CARDIAC PACEMAKER 01/06/2016 HUMA SHELDON MD Ot S80.12XA CONTUSION OF LEFT LOWER LEG, INITIAL ENC 01/06/2016 HUMA SHELDON MD Ot V58.3XXA OCCUP OF PK-UP/VAN INJ IN NONCN [facility] 01/06/2016 HUMA SHELDON MD Ot Y99.8 OTHER EXTERNAL CAUSE STATUS 01/06/2016 HUMA SHELDON MD Ot Z79.01 SENIOR LIVING [...] CCDS Ot I25.10 ATHSCL HEART DISEASE OF [place] CORONARY 01/07/2016 CHAR SHIRLEY FACC, AGNIESZKA FACP [...] LEFT LOWER LEG, INITIAL ENC 01/10/2016 HUMA SHELODN MD Ot V58.3XXA OCCUP OF PK-UP/VAN INJ IN NONCLSN [facility] 01/10/2016 HUMA SHELDON MD Ot Y99.8 OTHER EXTERNAL CAUSE STATUS 01/10/2016 HUMA SHELDON MD Ot Z79.01 MORTGAGE BRANCH MANAGER (CURRENT) USE OF ANTICOAGULANT 01/10/2016 HUMA SHELDON [...] CCDS Ot I25.10 ATHSCL HEART DISEASE OF [place] CORONARY 01/24/2016 CHAR SHIRLEY FACC, AGNIESZKA FACP [...] Z79.01 SENIOR LIVING (CURRENT) USE OF ANTICOAGULANT 04/11/2016 CHAR SHIRLEY FACC, ALI FACP CCDS Ot I48.91 UNSPECIFIED ATRIAL FIBRILLATION 04/11/2016 CHAR SHIRLEY FACC, ALI FACP CCDS Ot Z51.81 ENCOUNTER FOR THERAPEUTIC DRUG LEVEL MON 04/11/2016 CHAR SHIRLEY FACC, ALI FACP CCDS Ot Z79.01 SENIOR LIVING (CURRENT) USE OF ANTICOAGULANT 04/29/2016 CHAR SHIRLEY FACC, ALI FACP CCDS Ot I48.91 UNSPECIFIED ATRIAL FIBRILLATION 04/29/2016 CHAR SHIRLEY FACC, ALI FACP CCDS Ot Z51.81 ENCOUNTER FOR THERAPEUTIC DRUG LEVEL MON 04/29/2016 CHAR SHIRLEY FACC, ALI FACP CCDS Ot Z79.01 SENIOR LIVING (CURRENT) USE OF ANTICOAGULANT 05/07/2016 CHAR BURGERC, ALI FACP CCDS Ot I48.91 UNSPECIFIED ATRIAL FIBRILLATION 05/07/2016 CHAR SHIRLEY FACC, ALI FACP CCDS Ot Z51.81 ENCOUNTER FOR THERAPEUTIC DRUG LEVEL MON 05/07/2016 CHAR SHIRLEY FACC, ALI FACP CCDS Ot Z79.01 SENIOR LIVING (CURRENT) USE OF ANTICOAGULANT 06/09/2016 CHAR SHIRLEY FACC, ALI FACP CCDS Ot I48.91 UNSPECIFIED ATRIAL FIBRILLATION 06/09/2016 CHAR SHIRLEY FACC, ALI FACP CCDS Ot Z51.81 ENCOUNTER FOR THERAPEUTIC DRUG LEVEL MON 06/09/2016 CHAR SHIRLEY FACC, ALI FACP CCDS Ot Z79.01 SENIOR LIVING (CURRENT) USE OF ANTICOAGULANT 06/13/2016 ROGELIO CORTES MD Ot D50.9 IRON DEFICIENCY ANEMIA, UNSPECIFIED 06/13/2016 ROGELIO CORTES MD Ot D69.6 THROMBOCYTOPENIA, UNSPECIFIED 06/13/2016 ROGELIO CORTES MD Ot E78.5 HYPERLIPIDEMIA, UNSPECIFIED 06/13/2016 ROGELIO CORTES MD Ot I12.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 06/13/2016 ROGELIO CORTES MD Ot I25.10 ATHSCL HEART DISEASE OF [place] CORONARY 06/13/2016 ROGELIO CORTES MD Ot I48.91 UNSPECIFIED ATRIAL FIBRILLATION 06/13/2016 ROGELIO CORTES MD Ot N18.9 CHRONIC KIDNEY DISEASE, UNSPECIFIED 06/13/2016 ROGELIO CORTES MD Ot Z79.01 SENIOR LIVING (CURRENT) USE OF ANTICOAGULANT 06/13/2016 ROGELIO CORTES MD, Ot Z79.899 OTHER MORTGAGE BRANCH MANAGER (CURRENT) DRUG THERAPY 07/22/2016 ROGELIO CORTES MD, Ot D50.9 IRON DEFICIENCY ANEMIA, UNSPECIFIED 07/22/2016 ROGELIO CORTES MD Ot D69.6 THROMBOCYTOPENIA, UNSPECIFIED 07/22/2016 ROGELIO CORTES MD Ot E78.5 HYPERLIPIDEMIA, UNSPECIFIED 07/22/2016 ROGELIO CORTES MD Ot I12.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 07/22/2016 ROGELIO CORTES MD Ot I25.10 ATHSCL HEART DISEASE OF [place] CORONARY 07/22/2016 ROGELIO CORTES MD, Ot I48.91 UNSPECIFIED ATRIAL FIBRILLATION 07/22/2016 ROGELIO CORTES MD, Ot N18.9 CHRONIC KIDNEY DISEASE, UNSPECIFIED 07/22/2016 ROGELIO CORTES MD Ot Z79.01 MORTGAGE BRANCH MANAGER (CURRENT) USE OF ANTICOAGULANT 07/22/2016 ROGELIO CORTES MD Ot Z79.899 OTHER MORTGAGE BRANCH MANAGER (CURRENT) DRUG THERAPY 08/05/2016 CHAR SHIRLEY FAC, ALI FACP CCDS Ot I48.91 UNSPECIFIED ATRIAL FIBRILLATION 08/05/2016 CHAR SHIRLEY FACC, ALI FACP CCDS Ot Z51.81 ENCOUNTER FOR THERAPEUTIC DRUG LEVEL MON 08/05/2016 CHAR SHIRLEY FACC, ALI FACP CCDS Ot Z79.01 MORTGAGE BRANCH MANAGER (CURRENT) USE OF ANTICOAGULANT 09/10/2016 ROGELIO CORTES MD, Ot D50.9 IRON DEFICIENCY ANEMIA, UNSPECIFIED 09/10/2016 ROGELIO CORTES MD Ot D69.6 THROMBOCYTOPENIA, UNSPECIFIED 09/10/2016 ROGELIO CORTES MD Ot E78.5 HYPERLIPIDEMIA, UNSPECIFIED 09/10/2016 ROGELIO CORTES MD Ot I12.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 09/10/2016 ROGELIO CORTES MD Ot I25.10 ATHSCL HEART DISEASE OF [place] CORONARY 09/10/2016 ROGELIO CORTES MD Ot I48.91 UNSPECIFIED ATRIAL FIBRILLATION 09/10/2016 ROGELIO CORTES MD Ot N18.9 CHRONIC KIDNEY DISEASE, UNSPECIFIED 09/10/2016 ROGELIO CORTES MD Ot Z79.01 MORTGAGE BRANCH MANAGER (CURRENT) USE OF ANTICOAGULANT 09/10/2016 ROGELIO CORTES MD, Ot Z79.899 OTHER SENIOR LIVING (CURRENT) DRUG THERAPY 09/11/2016 ROGELIO CORTES MD Ot D50.9 IRON DEFICIENCY ANEMIA, UNSPECIFIED 09/11/2016 ROGELIO CORTES MD Ot D69.6 THROMBOCYTOPENIA, UNSPECIFIED 09/11/2016 ROGELIO CORTES MD Ot E78.5 HYPERLIPIDEMIA, UNSPECIFIED 09/11/2016 ROGELIO CORTES MD Ot I12.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 09/11/2016 ROGELIO CORTES MD Ot I25.10 ATHSCL HEART DISEASE OF [place] CORONARY 09/11/2016 ROGELIO CORTES MD Ot I48.91 UNSPECIFIED ATRIAL FIBRILLATION 09/11/2016 ROGELIO CORTES MD Ot N18.9 CHRONIC KIDNEY DISEASE, UNSPECIFIED 09/11/2016 ROGELIO CORTES MD Ot Z79.01 SENIOR LIVING (CURRENT) USE OF ANTICOAGULANT 09/11/2016 ROGELIO CORTES MD Ot Z79.899 OTHER MORTGAGE BRANCH MANAGER (CURRENT) DRUG THERAPY 10/15/2016 CHAR SHIRLEY FACC, [...] SHIRLEY FACC ALI FACP CCDS Ot Z79.01 SENIOR LIVING (CURRENT) USE OF ANTICOAGULANT 11/03/2016 CHAR SHIRLEY FACC ALI FACP CCDS Ot I48.91 UNSPECIFIED ATRIAL FIBRILLATION 11/03/2016 CHAR SHIRLEY FACC ALI FACP CCDS Ot Z51.81 ENCOUNTER FOR THERAPEUTIC DRUG LEVEL MON 11/03/2016 CHAR SHIRLEY FACC ALI FACP CCDS Ot Z79.01 SENIOR LIVING (CURRENT) USE OF ANTICOAGULANT 12/10/2016 ROGELIO CORTES MD Ot D50.9 IRON DEFICIENCY ANEMIA, UNSPECIFIED 12/10/2016 ROGELIO CORTES MD Ot D69.6 THROMBOCYTOPENIA, UNSPECIFIED 12/10/2016 ROGELIO CORTES MD Ot E78.5 HYPERLIPIDEMIA, UNSPECIFIED 12/10/2016 ROGELIO CORTES MD Ot I12.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 12/10/2016 ROGELIO CORTES MD Ot I25.10 ATHSCL HEART DISEASE OF [place] CORONARY 12/10/2016 ROGELIO CORTES MD Ot I48.91 [...] MD Ot I25.10 ATHSCL HEART DISEASE OF [place] CORONARY 12/11/2016 ROGELIO CORTES MD Ot I48.91 UNSPECIFIED ATRIAL FIBRILLATION 12/11/2016 ROGELIO CORTES MD Ot N18.9 CHRONIC KIDNEY DISEASE, UNSPECIFIED 12/11/2016 ROGELIO CORTES MD Ot Z79.01 MORTGAGE BRANCH MANAGER (CURRENT) USE OF ANTICOAGULANT 12/11/2016 ROGELIO CORTES [...] SHIRLEY FACC, ALI FACP CCDS Ot Z79.01 MORTGAGE BRANCH MANAGER (CURRENT) USE OF ANTICOAGULANT 01/14/2017 ROGELIO CORTES MD Ot D50.9 IRON DEFICIENCY ANEMIA, UNSPECIFIED 01/14/2017 ROGELIO CORTES MD Ot D69.6 THROMBOCYTOPENIA, UNSPECIFIED 01/14/2017 ROGELIO CORTES MD Ot E78.5 HYPERLIPIDEMIA, UNSPECIFIED 01/14/2017 ROGELIO CORTES MD Ot I12.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 01/14/2017 ROGELIO CORTES MD Ot I25.10 ATHSCL HEART DISEASE OF [place] CORONARY 01/14/2017 ROGELIO CORTES MD Ot I48.91 UNSPECIFIED ATRIAL FIBRILLATION 01/14/2017 ROGELIO CORTES MD Ot N18.9 CHRONIC KIDNEY DISEASE, UNSPECIFIED 01/14/2017 ROGELIO CORTES MD Ot Z79.01 SENIOR LIVING (CURRENT) USE OF ANTICOAGULANT 01/14/2017 ROGELIO CORTES MD Ot Z79.899 OTHER MORTGAGE BRANCH MANAGER (CURRENT) DRUG THERAPY 01/14/2017 ROGELIO CORTES MD Ot D50.9 IRON DEFICIENCY ANEMIA, UNSPECIFIED 01/14/2017 ROGELIO CORTES MD Ot D69.6 THROMBOCYTOPENIA, UNSPECIFIED 01/14/2017 ROGELIO CORTES MD Ot E78.5 HYPERLIPIDEMIA, UNSPECIFIED 01/14/2017 ROGELIO CORTES MD Ot I12.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 01/14/2017 ROGELIO CORTES MD Ot I25.10 ATHSCL HEART DISEASE OF [place] CORONARY 01/14/2017 ROGELIO CORTES MD Ot I48.91 UNSPECIFIED ATRIAL FIBRILLATION 01/14/2017 ROGELIO CORTES MD Ot N18.9 CHRONIC KIDNEY DISEASE, UNSPECIFIED 01/14/2017 ROGELIO CORTES MD Ot Z79.01 MORTGAGE BRANCH MANAGER (CURRENT) USE OF ANTICOAGULANT 01/14/2017 ROGELIO CORTES [...] MD Ot I25.10 ATHSCL HEART DISEASE OF [place] CORONARY 01/14/2017 ROGELIO CORTES MD Ot I48.91 UNSPECIFIED ATRIAL FIBRILLATION 01/14/2017 ROGELIO CORTES MD Ot N18.9 CHRONIC KIDNEY DISEASE, UNSPECIFIED 01/14/2017 ROGELIO CORTES MD Ot Z79.01 SENIOR LIVING (CURRENT) USE OF ANTICOAGULANT 01/14/2017 ROGELIO CORTES MD Ot Z79.899 OTHER MORTGAGE BRANCH MANAGER (CURRENT) DRUG THERAPY 03/10/2017 SEBASTIAN SHIRLEY, ROGELIO Alberts Ot D50.9 IRON DEFICIENCY ANEMIA, UNSPECIFIED 03/10/2017 SEBASTIAN SHIRLEY, ROGELIO Alberts Ot D69.6 THROMBOCYTOPENIA, UNSPECIFIED 03/10/2017 SEBASTIAN SHIRLEY, ROGELIO Alberts Ot E78.5 HYPERLIPIDEMIA, UNSPECIFIED 03/10/2017 SEBASTIAN SHIRLEY, ROGELIO Alberts Ot I12.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 03/10/2017 SEBASTIAN SHIRLEY, ROGELIO Alberts Ot I25.10 ATHSCL HEART DISEASE OF [place] CORONARY 03/10/2017 SEBASTIAN SHIRLEY, ROGELIO Alberts Ot I48.91 UNSPECIFIED ATRIAL FIBRILLATION 03/10/2017 SEBASTIAN SHIRLEY, ROGELIO Alberts Ot N18.9 CHRONIC KIDNEY DISEASE, UNSPECIFIED 03/10/2017 SEBASTIAN SHIRLEY, ROGELIO Alberts Ot Z79.01 SENIOR LIVING (CURRENT) USE OF ANTICOAGULANT 03/10/2017 SEBASTIAN SHIRLEY, ROGELIO Alberts Ot Z79.899 OTHER SENIOR LIVING (CURRENT) DRUG THERAPY 03/16/2017 BAIMA, WILLIAMS L RN COMPLIANCE Ot D50.9 IRON DEFICIENCY ANEMIA, UNSPECIFIED 03/16/2017 BAIMA, WILLIAMS L RN COMPLIANCE Ot D69.6 THROMBOCYTOPENIA, UNSPECIFIED 03/16/2017 BAIMA, WILLIAMS L RN COMPLIANCE Ot E78.5 HYPERLIPIDEMIA, UNSPECIFIED 03/16/2017 BAIMA, WILLIAMS L RN COMPLIANCE Ot I12.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 03/16/2017 BAIMA, WILLIAMS L RN COMPLIANCE Ot I25.10 ATHSCL HEART DISEASE OF [place] CORONARY 03/16/2017 BAIMA, WILLIAMS L RN COMPLIANCE Ot I48.91 UNSPECIFIED ATRIAL FIBRILLATION 03/16/2017 BAIMA, WILLIAMS L RN COMPLIANCE Ot N18.9 CHRONIC KIDNEY DISEASE, UNSPECIFIED 03/16/2017 BAIMA, WILLIAMS L RN COMPLIANCE Ot Z79.01 SENIOR LIVING (CURRENT) USE OF ANTICOAGULANT 03/16/2017 BAIMA, WILLIAMS L RN COMPLIANCE Ot Z79.899 OTHER MORTGAGE BRANCH MANAGER (CURRENT) DRUG THERAPY 03/17/2017 BAIMA, WILLIAMS L RN COMPLIANCE Ot D50.9 IRON DEFICIENCY ANEMIA, UNSPECIFIED 03/17/2017 BAIMA, WILLIAMS L RN COMPLIANCE Ot D69.6 THROMBOCYTOPENIA, UNSPECIFIED 03/17/2017 BAIMA, WILLIAMS L RN COMPLIANCE Ot E78.5 HYPERLIPIDEMIA, UNSPECIFIED 03/17/2017 BAIMA, WILLIAMS L RN COMPLIANCE Ot I12.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 03/17/2017 BAIMA, WILLIAMS L RN COMPLIANCE Ot I25.10 ATHSCL HEART DISEASE OF [place] CORONARY 03/17/2017 BAIMA, WILLIAMS L RN COMPLIANCE Ot I48.91 UNSPECIFIED ATRIAL FIBRILLATION 03/17/2017 BAIMA, WILLIAMS L RN COMPLIANCE Ot N18.9 CHRONIC KIDNEY DISEASE, UNSPECIFIED 03/17/2017 BAIMA, WILLIAMS L RN COMPLIANCE Ot Z79.01 SENIOR LIVING (CURRENT) USE OF ANTICOAGULANT 03/17/2017 BAIMA, WILLIAMS L RN COMPLIANCE Ot Z79.899 OTHER SENIOR LIVING (CURRENT) DRUG THERAPY 04/15/2017 BAIMA, WILLIAMS L RN COMPLIANCE Ot D50.9 IRON DEFICIENCY ANEMIA, UNSPECIFIED 04/15/2017 BAIMA, WILLIAMS L RN COMPLIANCE Ot D69.6 THROMBOCYTOPENIA, UNSPECIFIED 04/15/2017 BAIMA, WILLIAMS L RN COMPLIANCE Ot E78.5 HYPERLIPIDEMIA, UNSPECIFIED 04/15/2017 BAIMA, WILLIAMS L RN COMPLIANCE Ot I12.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 04/15/2017 BAIMA, WILLIAMS L RN COMPLIANCE Ot I25.10 ATHSCL HEART DISEASE OF [place] CORONARY 04/15/2017 BAIMA, WILLIAMS L RN COMPLIANCE Ot I48.91 UNSPECIFIED ATRIAL FIBRILLATION 04/15/2017 BAIMA, WILLIAMS L RN COMPLIANCE Ot N18.9 CHRONIC KIDNEY DISEASE, UNSPECIFIED 04/15/2017 BAIMA, WILLIAMS L RN COMPLIANCE Ot Z79.01 MORTGAGE BRANCH MANAGER (CURRENT) USE OF ANTICOAGULANT 04/15/2017 BAIMA, WILLIAMS L RN COMPLIANCE Ot Z79.899 OTHER SENIOR LIVING (CURRENT) DRUG THERAPY 04/28/2017 BAIMA, WILLIAMS L RN COMPLIANCE Ot D50.9 IRON DEFICIENCY ANEMIA, UNSPECIFIED 04/28/2017 BAIMA, WILLIAMS L RN COMPLIANCE Ot D69.6 THROMBOCYTOPENIA, UNSPECIFIED 04/28/2017 BAIMA, WILLIAMS L RN COMPLIANCE Ot E78.5 HYPERLIPIDEMIA, UNSPECIFIED 04/28/2017 BAIMA, WILLIAMS L RN COMPLIANCE Ot I12.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 04/28/2017 BAIMA, WILLIAMS L RN COMPLIANCE Ot I25.10 ATHSCL HEART DISEASE OF [place] CORONARY 04/28/2017 BAIMA, WILLIAMS L RN COMPLIANCE Ot I48.91 UNSPECIFIED ATRIAL FIBRILLATION 04/28/2017 BAIMA, WILLIAMS L RN COMPLIANCE Ot N18.9 CHRONIC KIDNEY DISEASE, UNSPECIFIED 04/28/2017 JEREMIAH CHAVEZHER L RN COMPLIANCE Ot Z79.01 MORTGAGE BRANCH MANAGER (CURRENT) USE OF ANTICOAGULANT 04/28/2017 JEREMIAH CHAVEZHER L RN COMPLIANCE Ot Z79.899 OTHER SENIOR LIVING (CURRENT) DRUG THERAPY 05/18/2017 Ot 786.50 CHEST [...] OTH MED,LT,CURRENT USE 05/18/2017 BAIMA, WILLIAMS L RN COMPLIANCE Ot 790.6 ABN BLOOD CHEMISTRY NEC 05/18/2017 BAIMA, WILLIAMS L RN COMPLIANCE Ot 790.6 ABN BLOOD CHEMISTRY NEC 05/18/2017 BAIMA, WILLIAMS L RN COMPLIANCE Ot 428.0 CONGESTIVE HEART FAILURE NOS 05/18/2017 BAIMA, WILLIAMS L RN COMPLIANCE Ot 428.0 CONGESTIVE HEART FAILURE NOS 05/18/2017 CHAR SHIRLEY FACC, ALI FACP CCDS Ot 414.00 CORON ATHEROSCLER NOS TYPE VESSEL, NATIV 05/18/2017 CHAR SHIRLEY FACC, ALI FACP CCDS Ot 429.3 CARDIOMEGALY 05/18/2017 CHAR SHIRLEY FACC, ALI FACP CCDS Ot 786.59 CHEST PAIN NEC 05/18/2017 CHAR SHIRLEY FACC, ALI FACP CCDS Ot 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 05/18/2017 BAIJEROME, WILLIAMS L RN COMPLIANCE Ot 272.4 HYPERLIPIDEMIA NEC/NOS 05/18/2017 Ot 272.0 [...] V58.61 ANTICOAGULANTS,LT,CURRENT USE 05/18/2017 BAIMA, WILLIAMS L RN COMPLIANCE Ot 272.4 HYPERLIPIDEMIA NEC/NOS 05/18/2017 BAIMA, WILLIAMS L RN COMPLIANCE Ot 401.9 HYPERTENSION NOS 05/18/2017 BAIMA, WILLIAMS L RN COMPLIANCE Ot 414.00 CORON ATHEROSCLER NOS TYPE VESSEL, NATIV 05/18/2017 BAIMA, WILLIAMS L RN COMPLIANCE Ot 427.31 ATRIAL FIBRILLATION 05/18/2017 BAIMA, WILLIAMS L RN COMPLIANCE Ot 272.4 HYPERLIPIDEMIA NEC/NOS 05/18/2017 BAIMA, WILLIAMS L RN COMPLIANCE Ot 401.9 HYPERTENSION NOS 05/18/2017 BAIMA, WILLIAMS L RN COMPLIANCE Ot 414.9 CHR ISCHEMIC HRT DIS NOS 05/18/2017 BAIMA, WILLIAMS L RN COMPLIANCE Ot 427.31 ATRIAL FIBRILLATION 05/18/2017 MOI SHIRLEY, [...] CCDS Ot I25.10 ATHSCL HEART DISEASE OF [place] CORONARY 05/18/2017 CHAR SHIRLEY FACC, ALI FACP [...] SHIRLEY FACC, ALI FACP CCDS Ot Z79.01 MORTGAGE BRANCH MANAGER (CURRENT) USE OF ANTICOAGULANT 05/18/2017 DORISMA, WILLIAMS L RN COMPLIANCE Ot D50.9 IRON DEFICIENCY ANEMIA, UNSPECIFIED 05/18/2017 BAIMA, WILLIAMS L RN COMPLIANCE Ot D69.6 THROMBOCYTOPENIA, UNSPECIFIED 05/18/2017 BAIMA, WILLIAMS L RN COMPLIANCE Ot E78.5 HYPERLIPIDEMIA, UNSPECIFIED 05/18/2017 BAIMA, WILLIAMS L RN COMPLIANCE Ot I12.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 05/18/2017 BAIMA, WILLIAMS L RN COMPLIANCE Ot I25.10 ATHSCL HEART DISEASE OF [place] CORONARY 05/18/2017 BAIMA, WILLIAMS L RN COMPLIANCE Ot I48.91 UNSPECIFIED ATRIAL FIBRILLATION 05/18/2017 BAIMA, WILLIAMS L RN COMPLIANCE Ot N18.9 CHRONIC KIDNEY DISEASE, UNSPECIFIED 05/18/2017 BAIMA, WILLIAMS L RN COMPLIANCE Ot Z79.01 SENIOR LIVING (CURRENT) USE OF ANTICOAGULANT 05/18/2017 BAIMA, WILLIAMS L RN COMPLIANCE Ot Z79.899 OTHER SENIOR LIVING (CURRENT) DRUG THERAPY 05/30/2017 BAIMA, WILLIAMS L RN COMPLIANCE Ot I48.0 PAROXYSMAL ATRIAL FIBRILLATION 05/30/2017 BAIMA, WILLIAMS L RN COMPLIANCE Ot Z79.01 SENIOR LIVING (CURRENT) USE OF ANTICOAGULANT 06/03/2017 BAIMA, WILLIAMS L RN COMPLIANCE Ot I48.0 PAROXYSMAL ATRIAL FIBRILLATION 06/03/2017 WILLIAMS CHAVEZ RN COMPLIANCE Ot Z79.01 MORTGAGE BRANCH MANAGER (CURRENT) USE OF ANTICOAGULANT 06/11/2017 CHAR SHIRLEY [...] MD Ot I25.10 ATHSCL HEART DISEASE OF [place] CORONARY 06/19/2017 SLOAN NICE MD Ot I48.91 UNSPECIFIED ATRIAL FIBRILLATION 06/19/2017 SLOAN NICE MD Ot N18.9 CHRONIC KIDNEY DISEASE, UNSPECIFIED 06/19/2017 SLOAN NICE MD Ot Z79.01 MORTGAGE BRANCH MANAGER (CURRENT) USE OF ANTICOAGULANT 06/19/2017 SLOAN NICE MD Ot Z79.899 OTHER MORTGAGE BRANCH MANAGER (CURRENT) DRUG THERAPY 07/06/2017 LSOAN NICE MD, Ot D50.9 IRON DEFICIENCY ANEMIA, UNSPECIFIED 07/06/2017 SLOAN NICE MD, Ot D69.6 THROMBOCYTOPENIA, UNSPECIFIED 07/06/2017 SLOAN NICE MD Ot E78.5 HYPERLIPIDEMIA, UNSPECIFIED 07/06/2017 SLOAN NICE MD Ot I12.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 07/06/2017 SLOAN NICE MD Ot I25.10 ATHSCL HEART DISEASE OF [place] CORONARY 07/06/2017 SLOAN NICE MD Ot I48.91 UNSPECIFIED ATRIAL FIBRILLATION 07/06/2017 SLOAN NICE MD Ot N18.9 CHRONIC KIDNEY DISEASE, UNSPECIFIED 07/06/2017 SLOAN NICE MD Ot Z79.01 MORTGAGE BRANCH MANAGER (CURRENT) USE OF ANTICOAGULANT 07/06/2017 SLOAN NICE MD Ot Z79.899 OTHER SENIOR LIVING (CURRENT) DRUG THERAPY 07/06/2017 SLOAN NICE MD Ot D50.9 IRON DEFICIENCY ANEMIA, UNSPECIFIED 07/06/2017 SLOAN NICE MD Ot D69.6 THROMBOCYTOPENIA, UNSPECIFIED 07/06/2017 SLOAN NICE MD Ot E78.5 HYPERLIPIDEMIA, UNSPECIFIED 07/06/2017 SLOAN INCE MD Ot I12.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 07/06/2017 SLOAN NICE MD Ot I25.10 ATHSCL HEART DISEASE OF [place] CORONARY 07/06/2017 SLOAN NICE MD Ot I48.91 UNSPECIFIED ATRIAL FIBRILLATION 07/06/2017 SLOAN NICE MD Ot N18.9 CHRONIC KIDNEY DISEASE, UNSPECIFIED 07/06/2017 SLOAN NICE MD Ot Z79.01 MORTGAGE BRANCH MANAGER (CURRENT) USE OF ANTICOAGULANT 07/06/2017 SLOAN NICE MD Ot Z79.899 OTHER MORTGAGE BRANCH MANAGER (CURRENT) DRUG THERAPY 07/16/2017 BAIMA, WILLIAMS L RN COMPLIANCE Ot D50.9 IRON DEFICIENCY ANEMIA, UNSPECIFIED 07/16/2017 BAIMA, WILLIAMS L RN COMPLIANCE Ot D69.6 THROMBOCYTOPENIA, UNSPECIFIED 07/16/2017 BAIMA, WILLIAMS L RN COMPLIANCE Ot E78.5 HYPERLIPIDEMIA, UNSPECIFIED 07/16/2017 BAIMA, WILLIAMS L RN COMPLIANCE Ot I12.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 07/16/2017 BAIMA, WILLIAMS L RN COMPLIANCE Ot I25.10 ATHSCL HEART DISEASE OF [place] CORONARY 07/16/2017 BAIMA, WILLIAMS L RN COMPLIANCE Ot I48.91 UNSPECIFIED ATRIAL FIBRILLATION 07/16/2017 BAIMA, WILLIAMS L RN COMPLIANCE Ot N18.9 CHRONIC KIDNEY DISEASE, UNSPECIFIED 07/16/2017 BAIMA, WILLIAMS L RN COMPLIANCE Ot Z79.01 MORTGAGE BRANCH MANAGER (CURRENT) USE OF ANTICOAGULANT 07/16/2017 BAIMA, WILLIAMS L RN COMPLIANCE Ot Z79.899 OTHER SENIOR LIVING (CURRENT) DRUG THERAPY 07/17/2017 BAIMA, WILLIAMS L RN COMPLIANCE Ot I48.91 UNSPECIFIED ATRIAL FIBRILLATION 07/17/2017 BAIMA WILLIAMS L RN COMPLIANCE Ot Z79.01 SENIOR LIVING (CURRENT) USE OF ANTICOAGULANT 07/21/2017 BAIMA WILLIAMS L RN COMPLIANCE Ot I48.0 PAROXYSMAL ATRIAL FIBRILLATION 07/21/2017 BAIMA WILLIAMS L RN COMPLIANCE Ot Z79.01 SENIOR LIVING (CURRENT) USE OF ANTICOAGULANT 07/27/2017 SLOAN NICE MD Ot D50.9 IRON DEFICIENCY ANEMIA, UNSPECIFIED 07/27/2017 SLOAN NICE MD Ot D69.6 THROMBOCYTOPENIA, UNSPECIFIED 07/27/2017 SLOAN NICE MD Ot E78.5 HYPERLIPIDEMIA, UNSPECIFIED 07/27/2017 SLOAN NICE MD Ot I12.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 07/27/2017 SLOAN NICE MD Ot I25.10 ATHSCL HEART DISEASE OF [place] CORONARY 07/27/2017 SLOAN NICE MD Ot I48.91 UNSPECIFIED ATRIAL FIBRILLATION 07/27/2017 SLOAN NICE MD Ot N18.9 CHRONIC KIDNEY DISEASE, UNSPECIFIED 07/27/2017 SLOAN NICE MD Ot Z79.01 MORTGAGE BRANCH MANAGER (CURRENT) USE OF ANTICOAGULANT 07/27/2017 SLOAN NICE MD Ot Z79.899 OTHER SENIOR LIVING (CURRENT) DRUG THERAPY 08/04/2017 DORISMA WILLIAMS L RN COMPLIANCE Ot I48.91 UNSPECIFIED ATRIAL FIBRILLATION 08/04/2017 BAIMA WILLIAMS L RN COMPLIANCE Ot Z79.01 SENIOR LIVING (CURRENT) USE OF ANTICOAGULANT 09/13/2017 DORISMAWILLIAMS L RN COMPLIANCE Ot I48.91 UNSPECIFIED ATRIAL FIBRILLATION 09/13/2017 BAIMA WILLIAMS L RN COMPLIANCE Ot Z79.01 MORTGAGE BRANCH MANAGER (CURRENT) USE OF ANTICOAGULANT 09/16/2017 SLOAN NICE MD Ot D50.9 IRON DEFICIENCY ANEMIA, UNSPECIFIED 09/16/2017 SLOAN NICE MD Ot D69.6 THROMBOCYTOPENIA, UNSPECIFIED 09/16/2017 SLOAN NICE MD Ot E78.5 HYPERLIPIDEMIA, UNSPECIFIED 09/16/2017 SLOAN NICE MD Ot I12.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 09/16/2017 SLOAN NICE MD Ot I25.10 ATHSCL HEART DISEASE OF [place] CORONARY 09/16/2017 SLOAN NICE MD Ot I48.91 UNSPECIFIED ATRIAL FIBRILLATION 09/16/2017 SLOAN NICE MD Ot N18.9 CHRONIC KIDNEY DISEASE, UNSPECIFIED 09/16/2017 SLOAN NICE MD Ot Z79.01 MORTGAGE BRANCH MANAGER (CURRENT) USE OF ANTICOAGULANT 09/16/2017 SLOAN NICE MD Ot Z79.899 OTHER MORTGAGE BRANCH MANAGER (CURRENT) DRUG THERAPY 09/17/2017 SLOAN NICE MD Ot D50.9 IRON DEFICIENCY ANEMIA, UNSPECIFIED 09/17/2017 SLOAN NICE MD Ot D69.6 THROMBOCYTOPENIA, UNSPECIFIED 09/17/2017 SLOAN NICE MD Ot E78.5 HYPERLIPIDEMIA, UNSPECIFIED 09/17/2017 SLOAN NICE MD Ot I12.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 09/17/2017 SLOAN NICE MD Ot I25.10 ATHSCL HEART DISEASE OF [place] CORONARY 09/17/2017 SLOAN NICE MD Ot I48.91 UNSPECIFIED ATRIAL FIBRILLATION 09/17/2017 SLOAN NICE MD Ot N18.9 CHRONIC KIDNEY DISEASE, UNSPECIFIED 09/17/2017 SLOAN NICE MD Ot Z79.01 MORTGAGE BRANCH MANAGER (CURRENT) USE OF ANTICOAGULANT 09/17/2017 SLOAN NICE MD Ot Z79.899 OTHER MORTGAGE BRANCH MANAGER (CURRENT) DRUG THERAPY 09/19/2017 BAIMA, WILLIAMS L RN COMPLIANCE Ot I48.91 UNSPECIFIED ATRIAL FIBRILLATION 09/19/2017 BAIMA, WILLIAMS L RN COMPLIANCE Ot Z79.01 MORTGAGE BRANCH MANAGER (CURRENT) USE OF ANTICOAGULANT 10/08/2017 BAIMA, WILLIAMS L RN COMPLIANCE Ot I48.91 UNSPECIFIED ATRIAL FIBRILLATION 10/08/2017 BAIMA, WILLIAMS L RN COMPLIANCE Ot Z79.01 MORTGAGE BRANCH MANAGER (CURRENT) USE OF ANTICOAGULANT 10/08/2017 BAIMA, WILLIAMS L RN COMPLIANCE Ot I48.91 UNSPECIFIED ATRIAL FIBRILLATION 10/08/2017 BAIMA, WILLIAMS L RN COMPLIANCE Ot Z79.01 SENIOR LIVING (CURRENT) USE OF ANTICOAGULANT 10/13/2017 BAIMA, WILLIAMS L RN COMPLIANCE Ot I48.91 UNSPECIFIED ATRIAL FIBRILLATION 10/13/2017 BAIMA, WILLIAMS L RN COMPLIANCE Ot Z79.01 MORTGAGE BRANCH MANAGER (CURRENT) USE OF ANTICOAGULANT 11/02/2017 BAIMA, WILLIAMS L RN COMPLIANCE Ot I48.91 UNSPECIFIED ATRIAL FIBRILLATION 11/02/2017 BAIMA, WILLIAMS L RN COMPLIANCE Ot Z79.01 SENIOR LIVING (CURRENT) USE OF ANTICOAGULANT 11/16/2017 CHAR SHIRLEY FACC, ALI FACP CCDS Ot E66.8 OTHER OBESITY 11/16/2017 CHAR SHIRLEY FACC, ALI FACP CCDS Ot E78.5 HYPERLIPIDEMIA, UNSPECIFIED 11/16/2017 CHAR SHIRLEY FACC, ALI FACP CCDS Ot I12.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 11/16/2017 CHAR SHIRLEY FACC, ALI FACP CCDS Ot I25.10 ATHSCL HEART DISEASE OF [place] CORONARY 11/16/2017 CHAR SHIRLEY FACC, ALI FACP [...] CCDS Ot I25.10 ATHSCL HEART DISEASE OF [place] CORONARY 11/16/2017 CHAR SHIRLEY FACC, ALI FACP [...] Z79.01 SENIOR LIVING (CURRENT) USE OF ANTICOAGULANT 11/25/2017 CHAR SHIRLEY [...] CCDS Ot I25.10 ATHSCL HEART DISEASE OF [place] CORONARY 12/03/2017 CHAR SHIRLEY FACC, ALI FACP [...] Z95.0 PRESENCE OF CARDIAC PACEMAKER 12/11/2017 CHAR UBRGERC, ALI FACP CCDS Ot I48.91 UNSPECIFIED ATRIAL FIBRILLATION 12/11/2017 CHAR BURGERC, ALI FACP CCDS Ot Z79.01 MORTGAGE BRANCH MANAGER (CURRENT) USE OF ANTICOAGULANT 12/13/2017 BAIMA, WILLIAMS L RN COMPLIANCE Ot E66.8 OTHER OBESITY 12/13/2017 BAIWILLIAMS CANO L RN COMPLIANCE Ot E78.5 HYPERLIPIDEMIA, UNSPECIFIED 12/13/2017 BAIWILLIAMS CANO L RN COMPLIANCE Ot I12.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 12/13/2017 WILLIAMS CHAVEZ L RN COMPLIANCE Ot I25.10 ATHSCL HEART DISEASE OF [place] CORONARY 12/13/2017 WILLIAMS CHAVEZ L RN COMPLIANCE Ot I48.0 PAROXYSMAL ATRIAL FIBRILLATION 12/13/2017 BAIMAWILLIAMS L RN COMPLIANCE Ot I48.91 UNSPECIFIED ATRIAL FIBRILLATION 12/13/2017 WILLIAMS CHAVEZ L RN COMPLIANCE Ot I65.29 OCCLUSION AND STENOSIS OF UNSPECIFIED CA 12/13/2017 WILLIAMS CHAVEZ L RN COMPLIANCE Ot N18.2 CHRONIC KIDNEY DISEASE, STAGE 2 (MILD) 12/13/2017 WILLIAMS CHAVEZ L RN COMPLIANCE Ot Z79.01 SENIOR LIVING (CURRENT) USE OF ANTICOAGULANT 12/13/2017 DORISWILLIAMS CANO L RN COMPLIANCE Ot Z95.0 PRESENCE OF CARDIAC PACEMAKER 12/14/2017 DORISWILLIAMS CANO L RN COMPLIANCE Ot I48.91 UNSPECIFIED ATRIAL FIBRILLATION 12/14/2017 BAIWILLIAMS CANO L RN COMPLIANCE Ot Z79.01 MORTGAGE BRANCH MANAGER (CURRENT) USE OF ANTICOAGULANT 12/15/2017 WILLIAMS CHAVEZ L RN COMPLIANCE Ot I48.91 UNSPECIFIED ATRIAL FIBRILLATION 12/15/2017 BAIMAJEREMIAHWILLIAMS L RN COMPLIANCE Ot Z79.01 MORTGAGE BRANCH MANAGER (CURRENT) USE OF ANTICOAGULANT 12/18/2017 CHAR SHIRLEY FACC, AGNIESZKA FACP CCDS Ot I12.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 12/18/2017 CHAR SHIRLEY FACC, AGNIESZKA FACP CCDS Ot I48.0 PAROXYSMAL ATRIAL FIBRILLATION 12/18/2017 CHAR SHIRLEY FACC, ALI FACP CCDS Ot N18.2 CHRONIC KIDNEY DISEASE, STAGE 2 (MILD) 12/18/2017 CHAR SHIRLEY FACC, ALI FACP CCDS Ot Z79.01 SENIOR LIVING (CURRENT) USE OF ANTICOAGULANT 12/19/2017 DORISJEREMIAH CANOHER L RN COMPLIANCE Ot I48.91 UNSPECIFIED ATRIAL FIBRILLATION 12/19/2017 BAIMA, WILLIAMS L RN COMPLIANCE Ot Z79.01 MORTGAGE BRANCH MANAGER (CURRENT) USE OF ANTICOAGULANT 12/30/2017 MOI SHIRLEY, JAZIEL Curtis Ot Z29.8 ENCOUNTER FOR OTHER SPECIFIED PROPHYLACT 12/31/2017 CHAR SHIRLEY FACC, AGNIESZKA BURGERP CCDS Ot I48.91 UNSPECIFIED ATRIAL FIBRILLATION 12/31/2017 CHAR SHIRLEY FACC, AGNIESZKA BURGERP CCDS Ot Z79.01 MORTGAGE BRANCH MANAGER (CURRENT) USE OF ANTICOAGULANT 01/19/2018 BAIMA, WILLIAMS L RN COMPLIANCE Ot I48.91 UNSPECIFIED ATRIAL FIBRILLATION 01/19/2018 BAIMA, WILLIAMS L RN COMPLIANCE Ot Z51.81 ENCOUNTER FOR THERAPEUTIC DRUG LEVEL MON 01/19/2018 BAIMA, WILLIAMS L RN COMPLIANCE Ot Z79.01 MORTGAGE BRANCH MANAGER (CURRENT) USE OF ANTICOAGULANT 01/31/2018 MOI SHIRLEY JAZIEL R Ot Z29.8 ENCOUNTER FOR OTHER SPECIFIED PROPHYLACT 03/03/2018 MOI SHIRLEY JAZIEL R Ot Z29.8 ENCOUNTER FOR OTHER SPECIFIED PROPHYLACT 03/14/2018 BAIMA, WILLIAMS L RN COMPLIANCE Ot I48.91 UNSPECIFIED ATRIAL FIBRILLATION 03/14/2018 BAIMA, WILLIAMS L RN COMPLIANCE Ot Z51.81 ENCOUNTER FOR THERAPEUTIC DRUG LEVEL MON 03/14/2018 BAIMA WILLIAMS L RN COMPLIANCE Ot Z79.01 SENIOR LIVING (CURRENT) USE OF ANTICOAGULANT 03/16/2018 BAIMA, WILLIAMS L RN COMPLIANCE Ot I48.91 UNSPECIFIED ATRIAL FIBRILLATION 03/16/2018 BAIMA, WILLIAMS L RN COMPLIANCE Ot Z51.81 ENCOUNTER FOR THERAPEUTIC DRUG LEVEL MON 03/16/2018 BAIMA, WILLIAMS L RN COMPLIANCE Ot Z79.01 MORTGAGE BRANCH MANAGER (CURRENT) USE OF ANTICOAGULANT 04/04/2018 MOI SHIRLEY JAZIEL R Ot Z29.8 ENCOUNTER FOR OTHER SPECIFIED PROPHYLACT 05/05/2018 MOI SHIRLEY JAZIEL R Ot Z29.8 ENCOUNTER FOR OTHER SPECIFIED PROPHYLACT 05/06/2018 MOI SHIRLEY JAZIEL R Ot Z29.8 ENCOUNTER FOR OTHER SPECIFIED PROPHYLACT 05/20/2018 BAIMA, WILLIAMS L RN COMPLIANCE Ot I48.91 UNSPECIFIED ATRIAL FIBRILLATION 05/20/2018 BAIMA WILLIAMS L RN COMPLIANCE Ot Z51.81 ENCOUNTER FOR THERAPEUTIC DRUG LEVEL MON 05/20/2018 BAIMA, WILLIAMS L RN COMPLIANCE Ot Z79.01 MORTGAGE BRANCH MANAGER (CURRENT) USE OF ANTICOAGULANT 05/27/2018 CHAR SHIRLEY FACC, AGNIESZKA FRIEND CCDS Ot I10 ESSENTIAL (PRIMARY) HYPERTENSION 05/27/2018 CHAR SHIRLEY FACC, ALI FACP CCDS Ot I25.10 ATHSCL HEART DISEASE OF [place] CORONARY 05/27/2018 CHAR SHIRLEY FACC, ALI FACP CCDS Ot I48.2 CHRONIC ATRIAL FIBRILLATION 05/27/2018 CHAR SHIRLEY FACC, ALI FACP CCDS Ot 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 AN 05/27/2018 CHAR SHIRLEY FACC, ALI FACP CCDS Ot R06.02 SHORTNESS OF BREATH 05/27/2018 CHAR SHIRLEY FACC, ALI FACP CCDS Ot Z79.01 MORTGAGE BRANCH MANAGER (CURRENT) USE OF ANTICOAGULANT 06/09/2018 MOI SHIRLEY, [...] OTH MED,LT,CURRENT USE 06/10/2018 BAIMA, WILLIAMS L RN COMPLIANCE Ot 790.6 ABN BLOOD CHEMISTRY NEC 06/10/2018 BAIMA, WILLIAMS L RN COMPLIANCE Ot 790.6 ABN BLOOD CHEMISTRY NEC 06/10/2018 BAIMA, WILLIAMS L RN COMPLIANCE Ot 428.0 CONGESTIVE HEART FAILURE NOS 06/10/2018 BAIMA, WILLIAMS L RN COMPLIANCE Ot 428.0 CONGESTIVE HEART FAILURE NOS 06/10/2018 CHAR SHIRLEY FACC, ALI FACP CCDS Ot 414.00 CORON ATHEROSCLER NOS TYPE VESSEL, NATIV 06/10/2018 CHAR SHIRLEY FACC, ALI FACP CCDS Ot 429.3 CARDIOMEGALY 06/10/2018 CHAR SHIRLEY FACC, ALI FACP CCDS Ot 786.59 CHEST PAIN NEC 06/10/2018 CHAR SHIRLEY FACC, ALI FACP CCDS Ot 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 06/10/2018 BAIMA, WILLIAMS L RN COMPLIANCE Ot 272.4 HYPERLIPIDEMIA NEC/NOS 06/10/2018 Ot 272.0 [...] V58.61 ANTICOAGULANTS,LT,CURRENT USE 06/10/2018 BAIMA, WILLIAMS L RN COMPLIANCE Ot 272.4 HYPERLIPIDEMIA NEC/NOS 06/10/2018 BAIMA, WILLIAMS L RN COMPLIANCE Ot 401.9 HYPERTENSION NOS 06/10/2018 BAIMA, WILLIAMS L RN COMPLIANCE Ot 414.00 CORON ATHEROSCLER NOS TYPE VESSEL, NATIV 06/10/2018 BAIMA, WILLIAMS L RN COMPLIANCE Ot 427.31 ATRIAL FIBRILLATION 06/10/2018 BAIMA, WILLIAMS L RN COMPLIANCE Ot 272.4 HYPERLIPIDEMIA NEC/NOS 06/10/2018 BAIMA, WILLIAMS L RN COMPLIANCE Ot 401.9 HYPERTENSION NOS 06/10/2018 BAIMA, WILLIAMS L RN COMPLIANCE Ot 414.9 CHR ISCHEMIC HRT DIS NOS 06/10/2018 BAIMA, WILLIAMS L RN COMPLIANCE Ot 427.31 ATRIAL FIBRILLATION 06/10/2018 MOI SHIRLEY, [...] CCDS Ot I25.10 ATHSCL HEART DISEASE OF [place] CORONARY 06/10/2018 CHAR SHIRLEY FACC, ALI FACP [...] SHIRLEY FACC, ALI FACP CCDS Ot Z79.01 MORTGAGE BRANCH MANAGER (CURRENT) USE OF ANTICOAGULANT 06/10/2018 CHAR SHIRLEY [...] MD Ot I25.10 ATHSCL HEART DISEASE OF [place] CORONARY 06/10/2018 SLOAN NICE MD Ot I48.91 UNSPECIFIED ATRIAL FIBRILLATION 06/10/2018 SLOAN NICE MD Ot N18.9 CHRONIC KIDNEY DISEASE, UNSPECIFIED 06/10/2018 SLOAN NICE MD Ot Z79.01 MORTGAGE BRANCH MANAGER (CURRENT) USE OF ANTICOAGULANT 06/10/2018 SLOAN NICE MD Ot Z79.899 OTHER SENIOR LIVING (CURRENT) DRUG THERAPY 06/10/2018 CHAR BURGERC, ALI FACP CCDS Ot E66.8 OTHER OBESITY 06/10/2018 CHAR SHIRLEY FACC, ALI FACP CCDS Ot E78.5 HYPERLIPIDEMIA, UNSPECIFIED 06/10/2018 CHAR SHIRLEY FACC, ALI FACP CCDS Ot I12.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 06/10/2018 CHAR SHIRLEY FACC, ALI FACP CCDS Ot I25.10 ATHSCL HEART DISEASE OF [place] CORONARY 06/10/2018 CHAR SHIRLEY FACC, ALI FACP CCDS Ot I48.0 PAROXYSMAL ATRIAL FIBRILLATION 06/10/2018 CHAR SHIRLEY FACC, ALI FACP CCDS Ot I65.29 OCCLUSION AND STENOSIS OF UNSPECIFIED CA 06/10/2018 CHAR SHIRLEY FACC, ALI FACP CCDS Ot N18.2 CHRONIC KIDNEY DISEASE, STAGE 2 (MILD) 06/10/2018 CHAR SHIRLEY FACC, ALI FACP CCDS Ot Z79.01 SENIOR LIVING (CURRENT) USE OF ANTICOAGULANT 06/10/2018 CHAR SHIRLEY [...] (CURRENT) USE OF ANTICOAGULANT 06/10/2018 WILLIAMS CHAVEZ RN COMPLIANCE Ot I48.91 UNSPECIFIED ATRIAL FIBRILLATION 06/10/2018 WILLIAMS CHAVEZ RN COMPLIANCE Ot Z51.81 ENCOUNTER FOR THERAPEUTIC DRUG LEVEL MON 06/10/2018 WILLIAMS CHAVEZ RN COMPLIANCE Ot Z79.01 MORTGAGE BRANCH MANAGER (CURRENT) USE OF ANTICOAGULANT 06/10/2018 CHAR SHIRLEY FACC, ALI FACP CCDS Ot I10 ESSENTIAL (PRIMARY) HYPERTENSION 06/10/2018 CHAR SHIRLEY FACC, ALI FACP CCDS Ot I25.10 ATHSCL HEART DISEASE OF [place] CORONARY 06/10/2018 CHAR SHIRLEY FACC, ALI FACP CCDS Ot I48.2 CHRONIC ATRIAL FIBRILLATION 06/10/2018 CHAR SHIRLEY FACC, ALI FACP CCDS Ot 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 AN 06/10/2018 CHAR SHIRLEY FACC, ALI FACP CCDS Ot R06.02 SHORTNESS OF BREATH 06/10/2018 CHAR SHIRLEY FACC, ALI FACP CCDS Ot Z79.01 SENIOR LIVING (CURRENT) USE OF ANTICOAGULANT 06/14/2018 BAIWILLIAMS CANO RN COMPLIANCE Ot I48.91 UNSPECIFIED ATRIAL FIBRILLATION 06/14/2018 WILLIAMS CHAVEZ RN COMPLIANCE Ot Z51.81 ENCOUNTER FOR THERAPEUTIC DRUG LEVEL MON 06/14/2018 WILLIAMS CHAVEZ RN COMPLIANCE Ot Z79.01 SENIOR LIVING (CURRENT) USE OF ANTICOAGULANT 06/14/2018 CHAR BURGERC, ALI FACP CCDS Ot E87.5 HYPERKALEMIA 06/14/2018 CHAR BURGERC, ALI FACP CCDS Ot I08.3 COMB RHEUMATIC DISORD OF [place], AORTIC 06/14/2018 CHAR SHIRLEY FACC, ALI FACP CCDS Ot I10 ESSENTIAL (PRIMARY) HYPERTENSION 06/14/2018 CHAR BURGERC, ALI FACP CCDS Ot I25.10 ATHSCL HEART DISEASE OF [place] CORONARY 06/14/2018 CHAR SHIRLEY FACC, ALI FACP [...] CCDS Ot I25.10 ATHSCL HEART DISEASE OF [place] CORONARY 06/15/2018 CHAR SHIRLEY FACC, ALI FACP CCDS Ot I48.2 CHRONIC ATRIAL FIBRILLATION 06/15/2018 CHAR SHIRLEY FACC, ALI FACP CCDS Ot 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 AN 06/15/2018 CHAR SHIRLEY [facility] CCDS Ot R06.02 SHORTNESS OF BREATH 06/15/2018 CHAR SHIRLEY [facility] CCDS Ot Z79.01 MORTGAGE BRANCH MANAGER (CURRENT) USE OF ANTICOAGULANT 06/15/2018 HUMA SHELDON MD Ot F41.9 ANXIETY DISORDER, UNSPECIFIED 06/15/2018 HUMA SHELDON MD Ot I25.2 OLD MYOCARDIAL INFARCTION 06/15/2018 HUMA SHELDON MD Ot M25.561 PAIN IN RIGHT KNEE 06/15/2018 HUMA SHELDON MD, Ot R40.2142 COMA SCALE, [...] STEPS, 06/15/2018 HUMA SHELDON MD Ot Y92.[address] [facility] [address] IN [facility] NON-INSTIT[facility] (PRIVATE 06/15/2018 HUMA SHELDON MD Ot Z23 ENCOUNTER FOR IMMUNIZATION 06/15/2018 HUMA SHELDON MD Ot Z79.01 MORTGAGE BRANCH MANAGER (CURRENT) USE OF ANTICOAGULANT 06/15/2018 HUMA SHELDON MD Ot Z79.82 MORTGAGE BRANCH MANAGER (CURRENT) USE OF ASPIRIN 06/15/2018 HUMA SHELDON [...] STEPS, 06/17/2018 HUMA SHELDON MD Ot Y92.[address] [facility] [address] IN [facility] NON[facility] (PRIVATE 06/17/2018 HUMA SHELDON MD Ot Z23 ENCOUNTER FOR IMMUNIZATION 06/17/2018 HUMA SHELDON MD Ot Z79.01 SENIOR LIVING (CURRENT) USE OF ANTICOAGULANT 06/17/2018 HUMA SHELDON MD Ot Z79.82 MORTGAGE BRANCH MANAGER (CURRENT) USE OF ASPIRIN 06/17/2018 HUMA SHELDON [...] STEPS, 06/21/2018 HUMA SHELDON MD, Ot Y92.[address] [facility] [address] IN [facility] NON[facility] (PRIVATE 06/21/2018 HUMA SHELDON MD, Ot Z23 ENCOUNTER FOR IMMUNIZATION 06/21/2018 HUMA SHELDON MD, Ot Z79.01 MORTGAGE BRANCH MANAGER (CURRENT) USE OF ANTICOAGULANT 06/21/2018 HUMA SHELDON MD, Ot Z79.82 SENIOR LIVING (CURRENT) USE OF ASPIRIN 06/21/2018 HUMA SHELDON [...] CCDS Ot I25.10 ATHSCL HEART DISEASE OF [place] CORONARY 06/30/2018 CHAR SHIRLEY FACC, AGNIESZKA FACP CCDS Ot I48.2 CHRONIC ATRIAL FIBRILLATION 06/30/2018 CHAR SHIRLEY FACC, ALI FACP CCDS Ot R06.02 SHORTNESS OF BREATH 06/30/2018 CHAR SHIRLEY FACC, ALI FACP CCDS Ot Z79.01 SENIOR LIVING (CURRENT) USE OF ANTICOAGULANT 07/11/2018 SEGLIE MD, [...] MD Ot I25.10 ATHSCL HEART DISEASE OF [place] CORONARY 08/27/2018 SLOAN NICE MD Ot I48.91 UNSPECIFIED ATRIAL FIBRILLATION 08/27/2018 SLOAN NICE MD Ot N18.9 CHRONIC KIDNEY DISEASE, UNSPECIFIED 08/27/2018 SLOAN NICE MD Ot Z79.01 SENIOR LIVING (CURRENT) USE OF ANTICOAGULANT 08/27/2018 SLOAN NCIE MD Ot Z79.899 OTHER MORTGAGE BRANCH MANAGER (CURRENT) DRUG THERAPY 08/27/2018 ML GANNON APRN Ot R50.9 FEVER, UNSPECIFIED 09/12/2018 FATIMAH PRATER MDYD R Ot Z29.8 ENCOUNTER FOR OTHER SPECIFIED PROPHYLACT 09/13/2018 FATIMAH PRATER MDYD R Ot Z29.8 ENCOUNTER FOR OTHER SPECIFIED PROPHYLACT 09/17/2018 WILLIAMS CHAVEZ RN COMPLIANCE Ot I48.91 UNSPECIFIED ATRIAL FIBRILLATION 09/17/2018 WILLIAMS CHAVEZ RN COMPLIANCE Ot Z51.81 ENCOUNTER FOR THERAPEUTIC DRUG LEVEL MON 09/17/2018 BAIMAWILLIAMS RN COMPLIANCE Ot Z79.01 MORTGAGE BRANCH MANAGER (CURRENT) USE OF ANTICOAGULANT 09/17/2018 BAIMAWILLIAMS RN COMPLIANCE Ot I48.91 UNSPECIFIED ATRIAL FIBRILLATION 09/17/2018 BAIMAWILLIAMS RN COMPLIANCE Ot Z51.81 ENCOUNTER FOR THERAPEUTIC DRUG LEVEL MON 09/17/2018 DORISMAWILLIAMS RN COMPLIANCE Ot Z79.01 SENIOR LIVING (CURRENT) USE OF ANTICOAGULANT 09/22/2018 AMADOU, MICHELLE R INTERMEDIATE MANAGER Ot G47.33 OBSTRUCTIVE SLEEP APNEA (ADULT) (PEDIATR 09/28/2018 WILLIAMS CHAVEZ RN COMPLIANCE Ot I12.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 09/28/2018 WILLIAMS CHAVEZ RN COMPLIANCE Ot N18.9 CHRONIC KIDNEY DISEASE, UNSPECIFIED 09/29/2018 MICHELLE TOBAR INTERMEDIATE MANAGER Ot G47.33 OBSTRUCTIVE SLEEP APNEA (ADULT) (PEDIATR 09/29/2018 MICHELLE TOBAR INTERMEDIATE MANAGER Ot G47.33 OBSTRUCTIVE SLEEP APNEA (ADULT) (PEDIATR 09/30/2018 AMADOUMICHELLE INTERMEDIATE MANAGER Ot G47.33 OBSTRUCTIVE SLEEP APNEA (ADULT) (PEDIATR 09/30/2018 MICHELLE TOBAR INTERMEDIATE MANAGER Ot G47.33 OBSTRUCTIVE SLEEP APNEA (ADULT) (PEDIATR 10/05/2018 JAGDEEPML MENJIVAR INTERMEDIATE MANAGER Ot R50.9 FEVER, UNSPECIFIED 10/06/2018 ML GANNON INTERMEDIATE MANAGER Ot R50.9 FEVER, UNSPECIFIED 10/07/2018 SLOAN NICE MD Ot D50.9 IRON DEFICIENCY ANEMIA, UNSPECIFIED 10/07/2018 SLOAN NICE MD Ot D69.6 THROMBOCYTOPENIA, UNSPECIFIED 10/07/2018 SLOAN NICE MD Ot E78.5 HYPERLIPIDEMIA, UNSPECIFIED 10/07/2018 SLOAN NICE MD Ot I12.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 10/07/2018 SLOAN NICE MD Ot I25.10 ATHSCL HEART DISEASE OF [place] CORONARY 10/07/2018 SLOAN NICE MD Ot I48.91 UNSPECIFIED ATRIAL FIBRILLATION 10/07/2018 SLOAN NICE MD Ot N18.9 CHRONIC KIDNEY DISEASE, UNSPECIFIED 10/07/2018 SLOAN NICE MD Ot Z79.01 SENIOR LIVING (CURRENT) USE OF ANTICOAGULANT 10/07/2018 SLOAN NICE MD Ot Z79.899 OTHER SENIOR LIVING (CURRENT) DRUG THERAPY 10/07/2018 WILLIAMS CHAVEZP Ot I48.91 UNSPECIFIED ATRIAL FIBRILLATION 10/07/2018 WILLIAMS CHAVEZP Ot Z51.81 ENCOUNTER FOR THERAPEUTIC DRUG LEVEL [facility] 10/07/2018 WILLIAMS CHAVEZP Ot Z79.01 SENIOR LIVING (CURRENT) USE OF ANTICOAGULANT 10/08/2018 SLOAN NICE MD Ot D50.9 IRON DEFICIENCY ANEMIA, UNSPECIFIED 10/08/2018 SLOAN NICE MD Ot D69.6 THROMBOCYTOPENIA, UNSPECIFIED 10/08/2018 TEX SHIRLEY, SLOAN Ot E78.5 HYPERLIPIDEMIA, UNSPECIFIED 10/08/2018 TEX SHIRLEY, SLOAN Ot I12.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 10/08/2018 SLOAN NICE MD Ot I25.10 ATHSCL HEART DISEASE OF [place] CORONARY 10/08/2018 SLOAN NICE MD Ot I48.91 UNSPECIFIED ATRIAL FIBRILLATION 10/08/2018 SLOAN NICE MD Ot N18.9 CHRONIC KIDNEY DISEASE, UNSPECIFIED 10/08/2018 SLOAN NICE MD Ot Z79.01 MORTGAGE BRANCH MANAGER (CURRENT) USE OF ANTICOAGULANT 10/08/2018 SLOAN NICE MD Ot Z79.899 OTHER MORTGAGE BRANCH MANAGER (CURRENT) DRUG THERAPY 10/13/2018 JAZIEL PRATER MD R Ot Z29.8 ENCOUNTER FOR OTHER SPECIFIED PROPHYLACT 10/20/2018 WILLIAMS CHAVEZ L RN COMPLIANCE Ot I12.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 10/20/2018 BAIWILLIAMS CANO L RN COMPLIANCE Ot N18.9 CHRONIC KIDNEY DISEASE, UNSPECIFIED 10/22/2018 BAIMAJEREMIAHWILLIAMS L RN COMPLIANCE Ot I48.91 UNSPECIFIED ATRIAL FIBRILLATION 10/22/2018 BAIMAWILLIAMS L RN COMPLIANCE Ot Z51.81 ENCOUNTER FOR THERAPEUTIC DRUG LEVEL MON 10/22/2018 WILLIAMS CHAVEZ L RN COMPLIANCE Ot Z79.01 MORTGAGE BRANCH MANAGER (CURRENT) USE OF ANTICOAGULANT 10/27/2018 WILLIAMS CHAVEZ L RN COMPLIANCE Ot I48.91 UNSPECIFIED ATRIAL FIBRILLATION 10/27/2018 BAIMAWILLIAMS L RN COMPLIANCE Ot Z51.81 ENCOUNTER FOR THERAPEUTIC DRUG LEVEL MON 10/27/2018 BAIMAWILLIAMS L RN COMPLIANCE Ot Z79.01 SENIOR LIVING (CURRENT) USE OF ANTICOAGULANT 11/17/2018 JAZIEL PRATER MD R Ot Z29.8 ENCOUNTER FOR OTHER SPECIFIED PROPHYLACT 11/18/2018 JAZIEL PRATER MD R Ot Z29.8 ENCOUNTER FOR OTHER SPECIFIED PROPHYLACT 12/16/2018 BAIMAWILLIAMS L RN COMPLIANCE Ot I48.91 UNSPECIFIED ATRIAL FIBRILLATION 12/16/2018 WILLIAMS CHAVEZ L RN COMPLIANCE Ot Z51.81 ENCOUNTER FOR THERAPEUTIC DRUG LEVEL MON 12/16/2018 DORISMAWILLIAMS L RN COMPLIANCE Ot Z79.01 SENIOR LIVING (CURRENT) USE OF ANTICOAGULANT 12/17/2018 BAIMA, WILLIAMS L RN COMPLIANCE Ot I48.91 UNSPECIFIED ATRIAL FIBRILLATION 12/17/2018 DORISMA, WILLIAMS L RN COMPLIANCE Ot Z51.81 ENCOUNTER FOR THERAPEUTIC DRUG LEVEL MON 12/17/2018 DORISMA WILLIAMS L RN COMPLIANCE Ot Z79.01 SENIOR LIVING (CURRENT) USE OF ANTICOAGULANT 12/19/2018 MOI SHIRLEY, JAZIEL R Ot Z29.8 ENCOUNTER FOR OTHER SPECIFIED PROPHYLACT 12/21/2018 MOI SHIRLEY, JAZIEL R Ot Z29.8 ENCOUNTER FOR OTHER SPECIFIED PROPHYLACT 01/07/2019 DORISMA WILLIAMS L RN COMPLIANCE Ot I48.91 UNSPECIFIED ATRIAL FIBRILLATION 01/07/2019 DORISMA, WILLIAMS L RN COMPLIANCE Ot Z51.81 ENCOUNTER FOR THERAPEUTIC DRUG LEVEL MON 01/07/2019 SCOTT WILLIAMS L RN COMPLIANCE Ot Z79.01 [employer]GAGE [employer]CH [employer]GER (CURRENT) USE OF ANTICOAGULANT 01/10/2019 Ot 272.0 [...] V58.61 ANTICOAGULANTS,LT,CURRENT USE 01/10/2019 BAIMA, WILLIAMS L RN COMPLIANCE Ot 272.4 HYPERLIPIDEMIA NEC/NOS 01/10/2019 BAIMA, WILLIAMS L RN COMPLIANCE Ot 401.9 HYPERTENSION NOS 01/10/2019 BAIMA, WILLIAMS L RN COMPLIANCE Ot 414.00 CORON ATHEROSCLER NOS TYPE VESSEL, NATIV 01/10/2019 BAIMA, WILLIAMS L RN COMPLIANCE Ot 427.31 ATRIAL FIBRILLATION 01/10/2019 BAIMA, WILLIAMS L RN COMPLIANCE Ot 272.4 HYPERLIPIDEMIA NEC/NOS 01/10/2019 BAIMA, WILLIAMS L RN COMPLIANCE Ot 401.9 HYPERTENSION NOS 01/10/2019 BAIMA, WILLIAMS L RN COMPLIANCE Ot 414.9 CHR ISCHEMIC HRT DIS NOS 01/10/2019 BAIMA, WILLIAMS L RN COMPLIANCE Ot 427.31 ATRIAL FIBRILLATION 01/10/2019 MOI SHIRLEY, [...] HYPERTENSIVE CHRONIC KIDNEY DISEASE W ST 01/10/2019 CAHR SHIRLEY FACC, AGNIESZKA FACP CCDS Ot I25.10 ATHSCL HEART DISEASE OF [place] CORONARY 01/10/2019 CHAR SHIRLEY FACC, AGNIESZKA FACP [...] SHIRLEY FACC, ALI FACP CCDS Ot Z79.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 BRANCH MANAGER (CURRENT) USE OF ANTICOAGULANT 01/10/2019 CHAR SHIRLEY [...] KIDNEY DISEASE, STAGE 2 (MILD) 01/10/2019 CHAR UBRGERC, ALI FACP CCDS Ot Z79.01 MORTGAGE BRANCH MANAGER (CURRENT) USE OF ANTICOAGULANT 01/10/2019 CHAR BURGERC, ALI FACP CCDS Ot E66.8 OTHER OBESITY 01/10/2019 CHAR BURGERC, ALI FACP CCDS Ot E78.5 HYPERLIPIDEMIA, UNSPECIFIED 01/10/2019 CHAR SHIRLEY FACC, ALI FACP CCDS Ot I12.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 01/10/2019 CHAR SHIRLEY FACC, ALI FACP CCDS Ot I25.10 ATHSCL HEART DISEASE OF [place] CORONARY 01/10/2019 CHAR SHIRLEY FACC, ALI FACP CCDS Ot I48.0 PAROXYSMAL ATRIAL FIBRILLATION 01/10/2019 CHAR SHIRLEY FACC, ALI FACP CCDS Ot I65.29 OCCLUSION AND STENOSIS OF UNSPECIFIED [place] 01/10/2019 CHAR SHIRLEY FACC, ALI FACP CCDS Ot N18.2 CHRONIC KIDNEY DISEASE, STAGE 2 (MILD) 01/10/2019 CHAR SHIRLEY FACC, ALI FACP CCDS Ot Z79.01 SENIOR LIVING (CURRENT) USE OF ANTICOAGULANT 01/10/2019 CHAR SHIRLEY [...] Z79.01 SENIOR LIVING (CURRENT) USE OF ANTICOAGULANT 01/10/2019 CHAR SHIRLEY FACC, ALI FACP CCDS Ot I10 ESSENTIAL (PRIMARY) HYPERTENSION 01/10/2019 CHAR BURGERC, ALI FACP CCDS Ot I25.10 ATHSCL HEART DISEASE OF [place] CORONARY 01/10/2019 CHAR SHIRLEY [facility], ALI FACP CCDS Ot I48.2 CHRONIC ATRIAL FIBRILLATION 01/10/2019 CHAR SHIRLEY [facility], ALI FACP CCDS Ot 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 AN 01/10/2019 CHAR SHIRLEY FACC, ALI FACP CCDS Ot R06.02 SHORTNESS OF BREATH 01/10/2019 CHAR SHIRLEY [facility], ALI FACP CCDS Ot Z79.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 BRANCH MANAGER (CURRENT) USE OF ANTICOAGULANT 01/10/2019 CHAR SHIRLEY [facility], ALI FACP CCDS Ot E87.5 HYPERKALEMIA 01/10/2019 CHAR SHIRLEY [facility], ALI FACP CCDS Ot I08.3 COMB RHEUMATIC DISORD OF [place], AORTIC 01/10/2019 CHAR SHIRLEY [facility], ALI FACP CCDS Ot I10 ESSENTIAL (PRIMARY) HYPERTENSION 01/10/2019 CHAR SHIRLEY [facility], ALI FACP CCDS Ot I25.10 ATHSCL HEART DISEASE OF [place] CORONARY 01/10/2019 CHAR SHIRLEY [facility], ALI FACP CCDS Ot I48.2 CHRONIC ATRIAL FIBRILLATION 01/10/2019 CHAR SHIRLEY [facility], ALI FACP CCDS Ot R06.02 SHORTNESS OF BREATH 01/10/2019 CHAR SHIRLEY [facility], ALI FACP CCDS Ot Z79.01 MORTGAGE BRANCH MANAGER (CURRENT) USE OF ANTICOAGULANT 01/10/2019 WILLIAMS CHAVEZ RN COMPLIANCE Ot I12.9 HYPERTENSIVE CHRONIC KIDNEY DISEASE W [...] MD Ot I25.10 ATHSCL HEART DISEASE OF [place] CORONARY 01/10/2019 SLOAN NICE MD Ot I48.91 UNSPECIFIED ATRIAL FIBRILLATION 01/10/2019 SLOAN NICE MD Ot N18.9 CHRONIC KIDNEY DISEASE, UNSPECIFIED 01/10/2019 SLOAN NICE MD Ot Z79.01 MORTGAGE BRANCH MANAGER (CURRENT) USE OF ANTICOAGULANT 01/10/2019 TEX SHIRLEY, SLOAN Ot Z79.899 OTHER MORTGAGE BRANCH MANAGER (CURRENT) DRUG THERAPY 01/10/2019 DORISWILLIAMS CANO Anuj AUSTIN Ot Z51.81 ENCOUNTER FOR THERAPEUTIC DRUG LEVEL MON 01/10/2019 WILLIAMS CHAVEZ Ot Z79.01 MORTGAGE BRANCH MANAGER (CURRENT) USE OF ANTICOAGULANT 01/11/2019 CHARLEY SLAUGHTER MD Ot 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 CLASSD ELSWHR W 01/11/2019 CHARLEY SLAUGHTER MD Ot F41.9 ANXIETY DISORDER, UNSPECIFIED 01/11/2019 CHARLEY SLAUGHTER MD Ot 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, CHILDHOOD-ONSET TYPE 01/11/2019 CHARLEY SLAUGHTER MD Ot G20 PARKINSON'S DISEASE 01/11/2019 CHARLEY SLAUGHTER MD Ot I25.10 ATHSCL HEART DISEASE OF [place] CORONARY 01/11/2019 CHARLEY SLAUGHTER MD Ot I25.2 OLD MYOCARDIAL INFARCTION 01/11/2019 CHARLEY SLAUGHTER MD Ot I48.91 UNSPECIFIED ATRIAL FIBRILLATION 01/11/2019 CHARLEY SLAUGHTER MD, Ot N18.9 CHRONIC KIDNEY DISEASE, UNSPECIFIED 01/11/2019 CHARLEY SLAUGHTER MD Ot Z79.01 SENIOR LIVING (CURRENT) USE OF ANTICOAGULANT 01/11/2019 CHARLEY SLAUGHTER MD Ot Z79.82 MORTGAGE BRANCH MANAGER (CURRENT) USE OF ASPIRIN 01/11/2019 CHARLEY SLAUGHTER [...] MD Ot I25.10 ATHSCL HEART DISEASE OF [place] CORONARY 01/12/2019 CHARLEY SLAUGHTER MD Ot I25.2 OLD MYOCARDIAL INFARCTION 01/12/2019 CHARLEY SLAUGHTER MD Ot I48.91 UNSPECIFIED ATRIAL FIBRILLATION 01/12/2019 CHARLEY SLAUGHTER MD Ot N18.9 CHRONIC KIDNEY DISEASE, UNSPECIFIED 01/12/2019 CHARLEY SLAUGHTER MD Ot Z79.01 MORTGAGE BRANCH MANAGER (CURRENT) USE OF ANTICOAGULANT 01/12/2019 CHARLEY SLAUGHTER MD Ot Z79.82 MORTGAGE BRANCH MANAGER (CURRENT) USE OF ASPIRIN 01/12/2019 CHARLEY SLAUGHTER [...] FOR OTHER SPECIFIED PROPHYLACT 01/26/2019 WILLIAMS CHAVEZ RN COMPLIANCE Ot Z51.81 ENCOUNTER FOR THERAPEUTIC DRUG LEVEL MON 01/26/2019 DORISMAWILLIAMS RN COMPLIANCE Ot Z79.01 SENIOR LIVING (CURRENT) USE OF ANTICOAGULANT 02/02/2019 DORISMAWILLIAMS RN COMPLIANCE Ot Z51.81 ENCOUNTER FOR THERAPEUTIC DRUG LEVEL MON 02/02/2019 DORISMAWILLIAMS RN COMPLIANCE Ot Z79.01 MORTGAGE BRANCH MANAGER (CURRENT) USE OF ANTICOAGULANT 02/02/2019 WILLIAMS CHAVEZ RN COMPLIANCE Ot Z51.81 ENCOUNTER FOR THERAPEUTIC DRUG LEVEL MON 02/02/2019 DORISMAWILLIAMS RN COMPLIANCE Ot Z79.01 MORTGAGE BRANCH MANAGER (CURRENT) USE OF ANTICOAGULANT 02/08/2019 WILLIAMS CHAVEZ RN COMPLIANCE Ot Z51.81 ENCOUNTER FOR THERAPEUTIC DRUG LEVEL [facility] 02/08/2019 WILLIAMS CHAVEZ [facility] Ot Z79.01 SENIOR LIVING (CURRENT) USE OF ANTICOAGULANT Procedures Code Description [...] NRG Blood erythrocyte morphology finding identification [facility] Complete blood count (CBC) with automated white [...] Status Pt. Type Provider Facility Loc./Unit Complaint [id number] 06/08/2013 11:15:00 06/08/2013 23:59:59 CLS Outpatient IWONA SEB BRITO [id number] 02/02/2019 10:58:00 02/02/2019 23:59:59 CLS Outpatient WILLIAMS CHAVEZ [facility] LAB CHRONIC ANTICOAGULATION [id number] 01/10/2019 09:57:00 01/19/2019 00:01:00 DIS Outpatient JAZIEL PRATER MD [facility] [place] [address] CARDIAC REHAB PHASE 3 [id number] 01/10/2019 18:38:00 01/11/2019 00:46:00 DIS Emergency SUKHJINDER SHIRLEY, CHARLEY Cavazos [facility] ER HX OF DEMENTIA/UNABLE TO CALM DOWN [id number] 01/03/2019 09:40:00 01/03/2019 23:59:59 CLS Outpatient WILLIAMS CHAVEZ [facility] LAB Z79.01,I48.0 [id number] 12/13/2018 11:30:00 12/19/2018 00:01:00 DIS Outpatient JAZIEL PRATER MD [facility] CR3 CARDIAC REHAB PHASE 3 [id number] 11/22/2018 09:33:00 12/16/2018 00:01:00 DIS Outpatient WILLIAMS CHAVEZ [facility] LAB Z79.01,I48.0 [id number] 11/17/2018 10:21:00 11/17/2018 00:01:00 DIS Outpatient JAZIEL PRATER MD [facility] [place] [address] CARDIAC REHAB PHASE 3 [id number] 10/13/2018 10:23:00 10/13/2018 00:01:00 DIS Outpatient JAZIEL PRATER MD [facility] [place] [address] CARDIAC REHAB PHASE 3 [id number] 10/08/2018 00:11:00 10/08/2018 23:59:59 CLS Preadmit SLOAN NICE MD [facility] ONC [id number] 07/09/2018 13:01:00 10/07/2018 00:01:00 DIS Outpatient SLOAN NICE MD [facility] ONC [id number] 10/06/2018 00:12:00 10/06/2018 23:59:59 CLS Preadmit ML GANNON APRN [facility] LAB FEVER OF UNKNOWN ORIGIN [id number] 07/07/2018 16:13:00 10/05/2018 00:01:00 DIS Outpatient ML GANNON INTERMEDIATE MANAGER [facility] LAB FEVER OF UNKNOWN ORIGIN [id number] 09/29/2018 19:39:00 09/30/2018 06:40:00 DIS Outpatient MICHELLE TOBAR APRN [facility] SLEEP ANTONINO G47.33 [id number] 09/27/2018 11:17:00 09/27/2018 23:59:59 CLS Outpatient WILLIAMS CHAVEZ [facility] LAB CKD [id number] 09/10/2018 10:46:00 09/12/2018 00:01:00 DIS Outpatient JAZIEL PRATER MD [facility] [place] [address] CARDIAC REHAB PHASE 3 [id number] 08/06/2018 11:44:00 08/11/2018 00:01:00 DIS Outpatient JAZIEL PRATER MD [facility] [place] [address] CARDIAC REHAB PHASE 3 [id number] 06/28/2018 10:09:00 07/11/2018 00:01:00 DIS Outpatient JAZIEL PRATER MD [facility] CARDIAC REHAB PHASE 3 [id number] 06/15/2018 18:28:00 06/15/2018 21:15:00 DIS Emergency PITO SHIRELY, HUMA Boris [facility] ER FELL AT HOME, LEFT HAND,RT KNEE [id number] 06/10/2018 09:26:00 06/14/2018 00:01:00 DIS Outpatient WILLIAMS CHAVEZ [facility] LAB Z79.01,I48.0 [id number] 06/10/2018 08:41:00 06/10/2018 23:59:59 CLS Outpatient CHAR SHIRLEY FACC, AGNIESZKA FRIEND CCDS [facility] CARD SOB,CHRONIC ATRIAL FIBRILLATION,HYPERTENSION [id number] 06/09/2018 10:12:00 06/09/2018 00:01:00 DIS Outpatient JAZIEL PRATER MD [facility] CARDIAC REHAB PHASE 3 [id number] 05/25/2018 07:24:00 05/25/2018 23:59:59 CLS Outpatient CHAR SHIRLEY FACC, AGNIESZKA FRIEND CCDS [facility] CARD SOB,CHRONIC ATRIAL FIBRILLATION,HYPERTENSION [id number] 05/05/2018 16:40:00 05/05/2018 00:01:00 DIS Outpatient JAZIEL PRATER MD R [facility] CARDIAC REHAB PHASE 3 [id number] 03/29/2018 13:45:00 03/29/2018 23:59:59 CLS Outpatient JAZIEL PRATER MD R [facility] CARDIAC REHAB PHASE 3 [id number] 02/12/2018 11:07:00 03/14/2018 00:01:00 DIS Outpatient WILLIAMS CHAVEZ [facility] LAB Z79.01,I48.0 [id number] 03/01/2018 10:00:00 03/03/2018 00:01:00 DIS Outpatient JAZIEL PRATER MD [facility] CARDIAC REHAB PHASE 3 [id number] 01/29/2018 17:38:00 01/31/2018 00:01:00 DIS Outpatient JAZIEL PRATER MD [facility] CARDIAC REHAB PHASE 3 [id number] 12/28/2017 11:46:00 12/30/2017 00:01:00 DIS Outpatient JAZIEL PRATER MD R [facility] CARDIAC REHAB PHASE 3 [id number] 11/13/2017 12:34:00 12/13/2017 00:01:00 DIS Outpatient WILLIAMS CHAVEZ [facility] LAB [id number] 11/24/2017 14:15:00 11/24/2017 23:59:59 CLS Outpatient CHAR SHIRLEY FACC, ALI FACP CCDS [facility] LAB I10,N18.2 [id number] 11/13/2017 12:24:00 11/13/2017 23:59:59 CLS Outpatient CHAR SHIRLEY FACC, ALI FACP CCDS [facility] LAB I65.23, [id number] 07/15/2017 11:44:00 09/16/2017 00:01:00 DIS Outpatient SLOAN NICE MD [facility] ONC [id number] 08/14/2017 12:26:00 09/13/2017 00:01:00 DIS Outpatient WILLIAMS CHAVEZ [facility] LAB [id number] 05/18/2017 08:27:00 05/30/2017 00:01:00 DIS Outpatient WILLIAMS CHAVEZ [facility] LAB [id number] 05/18/2017 08:52:00 05/18/2017 23:59:59 CLS Outpatient CHAR SHIRLEY FACC, ALI FACP CCDS [facility] LAB I65.23,Z79.01,N18.2,E78.4,I10,I48.0,I49.5 [id number] 02/12/2017 10:43:00 03/10/2017 00:01:00 DIS Outpatient ROGELIO CORTES MD [facility] LAB [id number] 01/14/2017 00:11:00 01/14/2017 23:59:59 CLS Preadmit CHAR SHIRLEY FACC, ALI FACP CCDS [facility] LAB A-FIB,[place] [id number] 12/12/2016 13:35:00 01/13/2017 00:01:00 DIS Outpatient CHAR SHIRLEY FACC, ALI FACP CCDS [facility] LAB A-FIB,[place] [id number] 06/12/2016 08:55:00 09/10/2016 00:01:00 DIS Outpatient ROGELIO CORTES MD [facility] ONC [id number] 07/15/2016 09:37:00 08/05/2016 00:01:00 DIS Outpatient CHAR SHIRLEY FACC, ALI FACP CCDS [facility] LAB A-FIB,[place] [id number] 04/03/2016 11:09:00 04/29/2016 00:01:00 DIS Outpatient CHAR SHIRLEY FACC, ALI FACP CCDS [facility] LAB A-FIB,[place] [id number] 12/17/2015 12:11:00 01/28/2016 00:01:00 DIS Outpatient CHAR SHIRLEY FACC, ALI FACP CCDS [facility] LAB A-FIB,[place] [id number] 01/04/2016 09:32:00 01/04/2016 23:59:59 CLS Outpatient CHAR SHIRLEY FACC, ALI FACP CCDS [facility] CARD AFIB [id number] 01/04/2016 10:47:00 01/04/2016 13:20:00 DIS Emergency HUMA SHELDON MD [facility] ER LEFT LEG PAIN/SWELLING [id number] 11/02/2015 14:34:00 11/02/2015 23:59:59 CLS Outpatient JAZIEL PRATER MD [facility] LAB UNSPECIFIED ARTRIAL FEBRILLATION [id number] 10/31/2015 13:43:00 11/01/2015 14:40:00 DIS Inpatient JAZIEL PRATER MD [facility] CSD ATYPICAL CHEST PAIN CHRONIC RENAL INSUFFICIENCY [id number] 10/01/2015 12:33:00 10/10/2015 00:01:00 DIS Outpatient CHAR SHIRLEY FACJanay, ALI FACP CCDS [facility] LAB A-FIB,[place] [id number] 06/14/2015 10:21:00 09/12/2015 00:01:00 DIS Outpatient ROGELIO CORTES MD [facility] ONC [id number] 05/28/2015 12:12:00 05/30/2015 00:01:00 DIS Outpatient CHAR SHIRLEY FACJanay, ALI FACP CCDS [facility] LAB A-FIB,[place] [id number] 04/12/2015 11:37:00 05/06/2015 00:01:00 DIS Outpatient CHAR SHIRLEY FACC, ALI FACP CCDS [facility] LAB A-FIB,[place] [id number] 04/23/2015 11:31:00 04/23/2015 23:59:59 CLS Outpatient JAZIEL PRATER MD [facility] LAB BUN/CREAT [id number] 03/30/2015 10:59:00 03/30/2015 23:59:59 CLS Outpatient JAZIEL PRATER MD [facility] RAD PERSISTENT COUGH [id number] 03/05/2015 15:34:00 03/05/2015 23:59:59 CLS Outpatient JAZIEL PRATER MD [facility] LAB MALAISE [id number] 11/14/2014 13:17:00 02/12/2015 00:01:00 DIS Outpatient ROGELIO CORTES MD [facility] ONC [id number] 01/19/2015 14:04:00 02/01/2015 00:01:00 DIS Outpatient CHAR SHIRLEY FACJanay, ALI FACP CCDS [facility] LAB A-FIB,[place] [id number] 12/19/2014 08:49:00 12/19/2014 23:59:59 CLS Outpatient WILLIAMS CHAVEZ [facility] LAB HYPERTENSION, A FIB, HYPERLIPIDEMIA, CORONARY BILLY [id number] 11/29/2014 10:35:00 11/29/2014 23:59:59 CLS Outpatient BAIWILLIAMS CANO [facility] CARD CAD,HTN,HLP [id number] 10/04/2014 15:05:00 10/04/2014 23:59:59 CLS Outpatient CHAR SHIRLEY FACC, AGNIESZKA FRIEND CCDS [facility] LAB A-FIB,[place] [id number] 05/16/2014 12:55:00 08/14/2014 00:01:00 DIS Outpatient ROGELIO CORTES MD [facility] ONC [id number] 07/19/2014 10:57:00 07/19/2014 12:54:00 DIS Emergency CHARLEY SLAUGHTER MD [facility] ER WEAKNESS DIARRHEA [id number] 06/22/2014 10:06:00 07/03/2014 00:01:00 DIS Outpatient CHAR SHIRLEY FACC, AGNIESZKA FRIEND CCDS [facility] LAB A-FIB,[place] [id number] 01/11/2014 12:35:00 04/11/2014 00:01:00 DIS Outpatient ROGELIO CORTES MD [facility] ONC [id number] 03/21/2014 09:18:00 03/22/2014 00:01:00 DIS Outpatient BAIWILLIAMS CANO [facility] LAB A-FIB,[place] [id number] 10/12/2013 12:49:00 01/04/2014 15:17:00 DIS Outpatient ROGELIO CORTES MD [facility] ONC [id number] 11/14/2013 12:43:00 11/30/2013 00:01:00 DIS Outpatient WILLIAMS CHAVEZ [facility] LAB A-FIB,[place] [id number] 07/13/2013 12:54:00 10/11/2013 00:01:00 DIS Outpatient ROGELIO CORTES MD [facility] ONC [id number] 07/12/2013 15:19:00 08/24/2013 00:01:00 DIS Outpatient WILLIAMS CHAVEZ [facility] LAB A-FIB,[place] [id number] 07/14/2013 08:37:00 07/14/2013 23:59:59 CLS Outpatient BAIMA, WILLIAMS L RN COMPLIANCE [facility] LAB HYPERLIPIDEMIA [id number] 07/05/2013 10:49:00 07/05/2013 18:00:00 DIS Outpatient CHAR SHIRLEY FACC, AGNIESZKA FRIEND CCDS [facility] CATH POSTITVE STRESS TEST,CAD,HLP,HTN [id number] 06/30/2013 07:31:00 06/30/2013 23:59:59 CLS Outpatient CHAR SHIRLEY FACJanay, AGNIESZKA FRIEND CCDS [facility] RAD CHEST DISCOMFORT,CAD,HX OF CABG [id number] 05/23/2013 14:50:00 06/24/2013 09:54:00 DIS Outpatient ROGELIO CORTES MD [facility] ONC [id number] 04/07/2013 14:55:00 05/10/2013 00:01:00 DIS Outpatient BAIMA, WILLIAMS L RN COMPLIANCE [facility] LAB A-FIB,[place] [id number] 04/11/2013 10:25:00 04/11/2013 23:59:59 CLS Outpatient BAIMA, WILLIAMS L RN COMPLIANCE [facility] LAB CHF [id number] 04/04/2013 11:21:00 04/04/2013 23:59:59 CLS Outpatient BAIMA, WILLIAMS L RN COMPLIANCE [facility] LAB CHF [id number] 03/29/2013 11:32:00 03/29/2013 23:59:59 CLS Outpatient BAIMA, WILLIAMS L RN COMPLIANCE [facility] LAB DIURETIC TR ELEVATED BNP [id number] 03/23/2013 07:37:00 03/23/2013 23:59:59 CLS Outpatient BAIMA, WILLIAMS L RN COMPLIANCE [facility] RAD ELEVATED LIVER ENZYMES [id number] 03/17/2013 08:27:00 03/17/2013 23:59:59 CLS Outpatient CHAR SHIRLEY FACJanay, AGNIESZKA FRIEND CCDS [facility] LAB LEG SWELLING,A-FIB, [id number] 02/09/2019 10:32:00 ACT Outpatient SEGJAZIEL ADAMSON MD [facility] CR3 CARDIAC REHAB PHASE 3 [id number] 10/30/2015 10:34:00 Document Registration [id number] 10/30/2015 10:34:00 Document Registration [id number] 05/16/2014 08:56:00 Document Registration [id number] 01/26/2013 11:35:00 Document Registration [id number] 11/17/2012 19:55:00 Document Registration [id number] 10/18/2012 12:30:00 Document Registration [id number] 07/29/2012 09:27:00 Document Registration [id number] 06/14/2012 11:49:00 Document Registration [id number] 06/14/2012 08:47:00 Document Registration [id number] 05/05/2012 14:07:00 Document Registration [id number] 04/26/2012 11:56:00 Document Registration [id number] 04/21/2012 09:46:00 Document Registration [id number] 03/29/2012 09:20:00 Document Registration [id number] 03/22/2012 16:00:00 Document Registration [id number] 03/19/2012 13:28:00 Document Registration [id number] 02/27/2012 11:47:00 Document Registration [id number] 12/28/2011 14:14:00 Document Registration [id number] 12/01/2011 06:53:00 Document Registration [id number] 11/07/2011 12:08:00 Document Registration [id number] 11/06/2011 10:30:00 Document Registration [id number] 10/31/2011 11:23:00 Document Registration [id number] 10/29/2011 16:17:00 Document Registration [id number] 10/20/2011 06:44:00 Document Registration [id number] 10/13/2011 10:46:00 Document Registration [id number] 09/09/2011 05:05:00 Document Registration [id number] 08/15/2011 11:11:00 Document Registration [id number] 06/20/2011 08:07:00 Document Registration [id number] 01/11/2019 01:26:00 01/26/2019 11:30:00 DIS Inpatient BILLYCHOLO [facility] IGLESIA [id number] 01/11/2019 01:59:50 Document Registration
--- NOTE | 2019-02-10 21:30 | NUR ---
NELIA CORONEL admitted to room 424-1, with an admitting diagnosis of chest pain, on 02/10/19 from ED via wheel chair, accompanied by ED staff. NELIA CORONEL introduced to surroundings, call light, bed controls, phone, TV, temperature control, lights, meal times, smoking policy, visitor policy, side rail policy, bathrooms and showers. Patient Rights given to patient in the handbook. The patient has history of dementia, verbalizes understanding of various instructions, however he is unable to fully recall the information provided. Pt's will be here soon; she will be instructed that [facility] is not responsible for the loss or damage to any personal effects or valuables that are kept in the patients posession during their hospitalization. The following Patient Care Plans were discussed with the patient at this time: Discharge Planning and chest pain management.
[2019-02-10 21:33] VITALS: BP 128/86
[2019-02-10] MEDS ORDERED: risperiDONE 0.25 MG (RisperDAL) TAB PO ONE (22:15)
[2019-02-10] MEDS ORDERED: NS IV 1000 ML 1,000 ML IV SCH (22:15)
[2019-02-10 23:58] VITALS: BP 121/57
[2019-02-11 04:31] VITALS: BP 115/66
[2019-02-11 07:38] LABS: CHOLESTEROL 91 MG/DL (< 200); HDL CHOLESTEROL 22 MG/DL (40-60); TRIGLYCERIDES 142 MG/DL (<150); VLDL CHOLESTEROL 28 MG/DL (5-40)
[2019-02-11 07:48] VITALS: BP 123/71
--- NOTE | 2019-02-11 08:06 | Consultation-Cardiology ---
HPI-Cardiology Cardiology Consultation Date of Consultation 02/11/19 Date of Admission Time Seen by Provider: 08:00 Indication: chest pain HPI 83 years old gentleman with history of coronary artery disease, unable to provide history, suffer from dementia, his at his bedside was able to provide history, he suffered some chest pain described it as achiness on the left side of his neck radiating to the left upper chest lasting for about an hour and resolved, had another episode in the emergency room, no further episode currently laying down comfortably, denied any active pain. No shortness of breath. No palpitation. No syncope or near syncopal episodes. Home Medications & Allergies Allergies: Coded Allergies: No Known Drug Allergies (Unverified , 11/18/12) Home Medication List Reviewed: Yes [id number] Hx Patient Social History Marital Status: Employed/Student: retired Alcohol Use: Denies Use Recreational Drug Use: No Smoking Status: Never a Smoker Former smoker/When Quit: Aug 31, 1969 2nd Hand Smoke Exposure: No Recent Foreign Travel: No Recent Infectious Disease Expo: No Recent Hopitalizations: No Physical Abuse Screen: No Sexual Abuse: No Immunizations Up To Date Tetanus Booster (TDap): More than 5yrs Date of Pneumonia Vaccine: May 31, 2016 Date of Influenza Vaccine: May 31, 2015 Past Medical History discussed below Family Medical History Family History: Hypertension 19 FATHER 19 MOTHER Osteoporosis Pneumococcal pneumonia G8 BROTHER, Review of Systems-General Review of Systems Constitutional: see HPI; No chills, No fever EENTM: see HPI, no symptoms reported Respiratory: no symptoms reported, see HPI Cardiovascular: see HPI, chest pain; No edema, No Hx of Intervention, No palpitations, No syncope, No vascular heart diseas, No other Gastrointestinal: no symptoms reported, see HPI Genitourinary: no symptoms reported, see HPI Musculoskeletal: see HPI, joint pain, muscle pain Skin: no symptoms reported Psychiatric/Neurological: No Symptoms Reported All Other Systems Reviewed Negative Unless Noted: Yes Reviewed Test Results Reviewed Test Results Lab Laboratory Tests Test 02/10/19 17:05 02/10/19 19:16 02/11/19 06:29 Range/Units White Blood Count 5.9 4.3-11.0 10^3/uL Red Blood Count 4.16 L 4.35-5.85 10^6/uL Hemoglobin 13.6 13.3-17.7 G/DL Hematocrit 40 40-54 % Mean Corpuscular Volume 97 80-99 FL Mean Corpuscular Hemoglobin 33 25-34 PG Mean Corpuscular Hemoglobin Concent 34 32-36 G/DL Red Cell Distribution Width 12.9 10.0-14.5 % Platelet Count 133 130-400 10^3/uL Mean Platelet Volume 11.9 H 7.4-10.4 FL Neutrophils (%) (Auto) 53 42-75 % Lymphocytes (%) (Auto) 24 12-44 % Monocytes (%) (Auto) 18 H 0-12 % Eosinophils (%) (Auto) 4 0-10 % Basophils (%) (Auto) 0 0-10 % Neutrophils # (Auto) 3.1 1.8-7.8 X 10^3 Lymphocytes # (Auto) 1.4 1.0-4.0 X 10^3 Monocytes # (Auto) 1.1 H 0.0-1.0 X 10^3 Eosinophils # (Auto) 0.3 0.0-0.3 10^3/uL Basophils # (Auto) 0.0 0.0-0.1 10^3/uL Prothrombin Time 22.0 H 12.2-14.7 SEC INR Comment 1.8 H 0.8-1.4 Activated Partial Thromboplast Time 42 H 24-35 SEC Sodium Level 138 135-145 MMOL/L Potassium Level 4.5 3.6-5.0 MMOL/L Chloride Level 101 98-107 MMOL/L Carbon Dioxide Level 30 21-32 MMOL/L Anion Gap 7 5-14 MMOL/L Blood Urea Nitrogen 20 H 7-18 MG/DL Creatinine 1.55 H 0.60-1.30 MG/DL Estimat Glomerular Filtration Rate 43 BUN/Creatinine Ratio 13 Glucose Level 101 70-105 MG/DL Calcium Level 9.7 8.5-10.1 MG/DL Corrected Calcium 9.5 8.5-10.1 MG/DL Magnesium Level 2.0 1.8-2.4 MG/DL Total Bilirubin 0.7 0.1-1.0 MG/DL Aspartate Amino Transf (AST/SGOT) 26 5-34 U/L Alanine Aminotransferase (ALT/SGPT) 24 0-55 U/L Alkaline Phosphatase 92 40-136 U/L Myoglobin 83.0 10.0-92.0 NG/ML Troponin I < 0.028 0.029 H < 0.028 <0.028 NG/ML B-Type Natriuretic Peptide 359.3 H <100.0 PG/ML Total Protein 7.2 6.4-8.2 GM/DL Albumin 4.2 3.2-4.5 GM/DL Triglycerides Level 142 <150 MG/DL Cholesterol Level 91 < 200 MG/DL LDL Cholesterol Direct 48 1-129 MG/DL VLDL Cholesterol 28 5-40 MG/DL HDL Cholesterol 22 L 40-60 MG/DL Physical Exam Physical Exam Vital Signs Vital Signs - First Documented 02/10/19 17:00 Temp 96.4 Pulse 64 Resp 18 B/P (MAP) 150/72 (98) Pulse Ox 100 O2 Delivery Room Air Capillary Refill : Less Than 3 Seconds Height, Weight, BMI Height: 5'8.00" Weight: 204lbs. 0.0oz. 92.863712rj; 31.0 BMI Method:Stated General Appearance: No Apparent Distress, WD/WN HEENT: PERRL/EOMI, Pharynx Normal Neck: Non Tender, Supple Respiratory: Lungs Clear, Normal Breath Sounds Cardiovascular: No Murmur, Systolic Murmur, Irregularly Irregular Gastrointestinal: Non Tender, Soft Extremity: Normal Range of Motion, Non Tender, No Calf Tenderness Neurologic/Psychiatric: Alert, Normal Mood/Affect Skin: Normal Color, Warm/Dry A/P-Cardiology Admission Diagnosis Chest pain and flank coronary artery disease Chronic atrial fibrillation Hypertension Hyperlipidemia Assessment/Plan Chest pain nonspecific etiology, no further episodes, EKG and cardiac enzymes were negative. Follow-up as an outpatient. Coronary artery disease, history of CABG done in 2011, last cardiac catheterization was done in 2012 showing patent NORIEGA to LAD vein graft to RCA and vein graft to the ramus intermedius, had a stress test in May 2018 showing no significant ischemia or infarction. Paroxysmal atrial fibrillation becoming permanent, rate is controlled. Continue to monitor Chronic coumadinization, followed by Dr. Todd Hypertension, restart home medication monitor blood pressure Hyperlipidemia maintained on statin next Dual-chamber pacemaker for tachybradycardia episode done by Dr. Guadalupe in 2011. 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 Todd History of anemia and thrombocytopenia Chronic kidney disease, continue to monitor renal function Alzheimer dementia. Okay for discharge by cardiology, follow-up with Dr. Todd in one to 2 weeks Clinical Quality Measures AMI/AHF: ASA po Prior to arrival: No DVT/VTE Risk/Contraindication: Risk Factor Score Per Nursin RFS Level Per Nursing on Admit: 4+=Very High BARRERA LEGER MD Feb 11, 2019 08:06
[2019-02-11] MEDS ORDERED: SERT50TA9 PO (08:54)
[2019-02-11] MEDS ORDERED: RISP0.5T3 PO (08:54)
[2019-02-11] MEDS ORDERED: MULT-1029 PO (08:54)
[2019-02-11] MEDS ORDERED: CALC-210 PO (08:54)
--- NOTE | 2019-02-11 08:57 | NUR ---
SPOKE WITH THE PATIENTS REGARDING MEDICATIONS, SHE HAD A DETAILED LIST WITH HER. I COMPARED THAT LIST WITH THE EXT MED HX. THEY FILLED LASIX 40MG #30/30 DAYS 02-08-19 HOWEVER SHE STATES HE ONLY TAKES IT 3X A WEEK. HIS AUGTOVEN DOSE IS 1/2 (2.5MG) TAB THU AND THURSDAY AND 1 WHOLE TABLET THE REST OF THE WEEK. HE TAKES A MTV, FISH OIL, CALCIUM/MAG/ZINC, AND ASPIRIN 81MG DAILY OTC. HE IS NO LONGER TAKING THE DONEPEZIL, MEMANTINE, OR CARBIDOPA/LEVODOPA.
[2019-02-11] MEDS ORDERED: ASPIRIN 81 MG CHEW (CHILDREN'S ASA) PO SCH (09:00)
--- NOTE | 2019-02-11 11:10 | Short Stay Summary-Hospitalist ---
History of Present Illness HPI/Chief Complaint Chief complaint: Atypical chest pain History of present illness: This is an 83-year-old white male clinic patient of Dr. Perez who is known to me from the [facility] in [place] a few weeks ago for aggressive behavior. He reported to the ER if he had chest pain for the last week and he had just subtle elevation in troponin but that completely normalized. He had had a stress test last year. Cardiology evaluated him to be without risk for acute coronary syndrome and he will be discharged to continue on all home meds. Source: patient Exam Limitations: no limitations Date Seen 02/11/19 Time Seen by a Provider: 09:00 Attending Physician Echo Thomas Floyd R MD Referring Physician Date of Admission Feb 10, 2019 at 20:05 Home Medications & Allergies Home Medications Reviewed patient Home Medication Reconciliation performed by pharmacy medication reconciliations pilot plant research technician and/or nursing. Patients Allergies have been reviewed. Allergies Allergies Coded Allergies No Known Drug Allergies (Unverified11/18/12) Past Blzqove-Aztcdo-Epcizs Hx Past Med/Social Hx: Reviewed Nursing Past Med/Soc Hx, Reviewed and Corrections made Patient Social History Marrital Status: Employed/Student: retired Alcohol Use: Denies Use Recreational Drug Use: No Smoking Status: Never a Smoker 2nd Hand Smoke Exposure: No Physical Abuse Screen: No Sexual Abuse: No Recent Foreign Travel: No Contact w/other who traveled: No Recent Hopitalizations: No Recent Infectious Disease Expo: No Immunizations Up To Date Tetanus Booster (TDap): More than 5yrs Pediatric: No Date of Pneumonia Vaccine: May 31, 2016 Date of Influenza Vaccine: May 31, 2015 Seasonal Allergies Seasonal Allergies: No Past Medical History Surgeries: CABG Currently Using CPAP: No Currently Using BIPAP: No Cardiac: Atrial Fibrillation, Coronary Artery Disease, Heart Attack Neurological: Dementia, Parkinson's Disease Reproductive: No Sexually Transmitted Disease: No HIV/AIDS: No Genitourinary: Kidney Stones, Renal Failure Musculoskeletal: Arthritis HEENT: Cataract Hearing Impairment: Denies Psychosocial: Sleep Difficulties, Anxiety History of Blood Disorders: No Family History Reviewed Nursing Family Hx Hypertension 19 FATHER 19 MOTHER Osteoporosis Pneumococcal pneumonia G8 BROTHER, Review of Systems Constitutional: see HPI Cardiovascular: chest pain Physical Exam Physical Exam Vital Signs Vital Signs - First Documented 02/10/19 17:00 Temp 96.4 Pulse 64 Resp 18 B/P (MAP) 150/72 (98) Pulse Ox 100 O2 Delivery Room Air Capillary Refill : Less Than 3 Seconds Height, Weight, BMI Height: 5'8.00" Weight: 204lbs. 0.0oz. 92.351546cc; 31.0 BMI Method:Stated General Appearance: No Apparent Distress, WD/WN, Chronically ill, Obese Eyes: Bilateral Eye Normal Inspection, Bilateral Eye PERRL HEENT: PERRL/EOMI, Pharynx Normal Neck: Non Tender, Supple Respiratory: Chest Non Tender, Lungs Clear, Normal Breath Sounds, No Accessory Muscle Use, No Respiratory Distress Cardiovascular: Regular Rate, Rhythm, No Edema, No Gallop, No JVD, No Murmur, Systolic Murmur, Irregularly Irregular Gastrointestinal: Non Tender, Soft Back: Normal Inspection, No CVA Tenderness, No Vertebral Tenderness Extremity: Normal Range of Motion, Non Tender, No Calf Tenderness Neurologic/Psychiatric: Alert, Normal Mood/Affect Skin: Normal Color, Warm/Dry Lymphatic: No Adenopathy Results Results/Procedures Labs Laboratory Tests 02/10/19 17:05 Patient resulted labs reviewed. Short Stay Diagnosis Discharge Diagnosis-Short Stay Admission Diagnosis Assessment: Atypical chest pain Subtle elevation of troponin without evidence of acute coronary syndrome Severe dementia with aggression Hypertension CAD Hyperlipidemia Final Discharge Diagnosis Assessment: Atypical chest pain Subtle elevation of troponin without evidence of acute coronary syndrome Severe dementia with aggression Hypertension CAD Hyperlipidemia Conclusion Plan Plan: Discharge home Restart all home meds Diagnosis/Problems Diagnosis/Problems (1) Atypical chest pain Status: Acute (2) Atrial fibrillation Status: Chronic Qualifiers: Qualified Codes: I48.2 - Chronic atrial fibrillation (3) Chronic renal insufficiency Status: Chronic Qualifiers: Qualified Codes: 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
[2019-02-11 11:27] VITALS: BP 113/55
[2019-02-11 11:50] VITALS: BP 113/55
== END 2019-02-11 11:11 | disposition home or self-care (01) ==
LOC: ER 17:00 → EDUNIT# 17:00 → 4TH 20:05 → UNDOADMOB 20:05 → 4TH 21:30 → UNDODISOB 02-11 11:50
PROVIDERS: ADMIT Internal Medicine; ATTEND Internal Medicine
DX: R07.89 Other chest pain (principal); I48.2 Chronic atrial fibrillation; G30.9 Alzheimer's disease, unspecified; F02.81 Dementia in other diseases classified elsewhere, unspecified severity, with behavioral disturbance; I12.9 Hypertensive chronic kidney disease with stage 1 through stage 4 chronic kidney disease, or unspecified chronic kidney disease; N18.2 Chronic kidney disease, stage 2 (mild); I25.10 Atherosclerotic heart disease of native coronary artery without angina pectoris; E78.5 Hyperlipidemia, unspecified; I25.2 Old myocardial infarction; G20 Parkinson's disease; Z95.1 Presence of aortocoronary bypass graft; Z79.01 Long term (current) use of anticoagulants; Z95.0 Presence of cardiac pacemaker; F41.9 Anxiety disorder, unspecified; Z87.442 Personal history of urinary calculi
CPT/HCPCS: 36415; 71045; 80053; 80061; 83735; 83874; 83880; 84484; 85025; 85610; 85730; 93005; 93041; 96360; 96361; 96372; G0378

== ENCOUNTER → 2019-02-25 | Outpatient (RCR) | payer MEDICARE, OTHER ==
[~2019-02-25] MED LIST changes: +CALC-210 PO; +MULT-1029 PO; +RISP0.5T3 PO; +SERT50TA9 PO
== END | disposition home or self-care (01) ==
LOC: CR3 01-26 10:00
PROVIDERS: ATTEND Family Medicine
DX: Z29.8 Encounter for other specified prophylactic measures (principal)

== ENCOUNTER 2019-03-02 13:54 | Outpatient (RCR) | payer MEDICARE, OTHER | END 2019-03-30 | disposition home or self-care (01) | LOC: CR3 13:54 | PROVIDERS: ATTEND Family Medicine | DX: Z29.8 Encounter for other specified prophylactic measures (principal) ==

== ENCOUNTER 2019-03-10 11:42 | Emergency (ER) | payer MEDICARE, OTHER ==
[~2019-03-10] VITALS: Ht 172.7 cm; Wt 90.7 kg
--- NOTE | 2019-03-10 11:56 | NUR ---
c-collar removed by Dr. Olmedo at this time.
--- NOTE | 2019-03-10 12:13 | ED Fall/Injury ---
General Chief Complaint: Trauma-Non Activation Stated Complaint: FALL Source: patient Exam Limitations: no limitations History of Present Illness Date Seen by Provider: Mar 10, 2019 Time Seen by Provider: 11:53 Initial Comments Here by EMS with report of fall at home. Apparently this was an unwitnessed fall. reports that he was sitting in a gliding rocking chair and she went outside. When she came back inside she noticed that he had fallen on his left side out of the chair and actually the chair had landed on top of him. She tried to get him up and he is complaining of left-sided hip pain. EMS was summoned and he did have some left-sided hip pain with them. Denies pain currently. Unsure of loss of consciousness. Denies neck or upper back pain. Apparently he had some lower back pain earlier with transfer for EMS although does not have that pain now. No obvious injuries or deformities noted or reported. was concerned about the hip and wanted to get that checked out secondary to the fall. Patient has advanced dementia so somewhat difficult history. Occurred: just prior to arrival (approximately 45 minutes prior to arrival) Severity: mild Injuries/Pain Location: pelvis Context: unknown, lost balance Loss of Consciousness: unsure Modifying Factors: Improves With Immobilization; Worse With Movement; Improves With Rest Associated Symptoms (Fall): No Chest Pain; Confusion (chronic dementia related); No Nausea/Vomiting, No Neck Pain; Trouble Walking Allergies and Home Medications Allergies Coded Allergies: No Known Drug Allergies (Unverified , 11/18/12) Home Medications Aspirin 81 Mg Tablet.dr, 81 MG PO DAILY, (Reported) Atorvastatin Calcium 40 Mg Tablet, 40 MG PO HS, (Reported) Calcium/Magnesium/Zinc 1 Each Tablet, 1 TAB PO DAILY, (Reported) Furosemide 40 Mg Tablet, 40 MG PO TuThSa, (Reported) Metoprolol Tartrate 100 Mg Tablet, 100 MG PO BID, (Reported) Multivit-Min/FA/Lycopene/Lut 1 Each Tablet, 1 TAB PO DAILY, (Reported) Brilliant 3 Polyunsat Fatty Acids 1,000 Mg Cap, 1,000 MG PO DAILY, (Reported) Pantoprazole Sodium 40 Mg Tablet.dr, 40 MG PO DAILY, (Reported) Risperidone 0.5 Mg Tablet, 0.75 MG PO BID, (Reported) TAKE 1 & 1/2 (0.5MG) TABLET Sertraline HCl 50 Mg Tablet, 50 MG PO 1600, (Reported) Spironolactone 25 Mg Tablet, 25 MG PO BID, (Reported) Warfarin Sodium 2.5 Mg Tablet, 1.25 MG PO MoFr@2100, (Reported) TAKES 1/2 (2.5MG) TABLET Warfarin Sodium 2.5 Mg Tablet, 2.5 MG PO SuTuWeThSa@2100, (Reported) Patient Home Medication List Home Medication List Reviewed: Yes Review of Systems Review of Systems Constitutional: see HPI; No chills, No fever Eyes: No Symptoms Reported Respiratory: no symptoms reported Cardiovascular: no symptoms reported Gastrointestinal: No abdominal pain, No nausea, No vomiting Musculoskeletal: back pain, joint pain; No joint swelling Skin: no symptoms reported Psychiatric/Neurological: See HPI All Other Systems Reviewed Negative Unless Noted: Yes Past Iqsyjnt-Woekix-Fxbgvl Hx Past Med/Social Hx: Reviewed Nursing Past Med/Soc Hx Patient Social History Alcohol Use: Denies Use Recreational Drug Use: No 2nd Hand Smoke Exposure: No Recent Hopitalizations: No Immunizations Up To Date Tetanus Booster (TDap): More than 5yrs PED Vaccines UTD: No Date of Pneumonia Vaccine: May 31, 2016 Date of Influenza Vaccine: May 31, 2015 Seasonal Allergies Seasonal Allergies: No Past Medical History Surgeries: Yes CABG Respiratory: Yes Pneumonia Currently Using CPAP: No Currently Using BIPAP: No Cardiac: Yes Atrial Fibrillation, Coronary Artery Disease, Heart Attack Neurological: Yes (PARKINSON) Dementia, Parkinson's Disease Reproductive Disorders: No Sexually Transmitted Disease: No HIV/AIDS: No Genitourinary: Yes Kidney Stones, Renal Failure Gastrointestinal: No Musculoskeletal: Yes Arthritis Endocrine: No HEENT: Yes Cataract Hearing Impairment: Denies Cancer: No Psychosocial: Yes Sleep Difficulties, Anxiety Integumentary: No Blood Disorders: No Family Medical History Reviewed Nursing Family Hx Hypertension 19 FATHER 19 MOTHER Osteoporosis Pneumococcal pneumonia G8 BROTHER, Physical Exam Vital Signs Vital Signs - First Documented 03/10/19 11:44 Temp 98.4 Pulse 74 Resp 18 B/P (MAP) 113/45 (67) Pulse Ox 96 Capillary Refill : Height, Weight, BMI Height: 5'8.00" Weight: 204lbs. 0.0oz. 92.051962xk; 31.0 BMI Method:Stated General Appearance: WD/WN, no apparent distress HEENT: PERRL/EOMI, TMs normal, pharynx normal Neck: non-tender, full range of motion, supple, normal inspection Cardiovascular: no murmur, irregularly irregular Respiratory: lungs clear, normal breath sounds Gastrointestinal: non tender, soft Back: normal inspection, no CVA tenderness, no vertebral tenderness Extremities: non-tender, normal inspection, pelvis stable Neurologic/Psychiatric: no motor/sensory deficits, alert Skin: normal color, warm/dry [place] Coma Score Best Eye Response: (4) Open Spontaneously Best Verbal Response: (4) Confused Conversation (typical) Best Motor Response: (6) Obeys Commands Progress/Results/Core Measures Results/Orders My Orders Orders - HUMA SHELDON MD Ct Head/Cervical Spine Wo (03/10/19 11:58) Chest 1 View, Ap/Pa Only (03/10/19 11:58) Pelvis With Left Hip 2-3 Views (03/10/19 11:58) Vital Signs/I&O 03/10/19 11:44 Temp 98.4 Pulse 74 Resp 18 B/P (MAP) 113/45 (67) Pulse Ox 96 Progress Progress Note : Progress Note Seen and evaluated. C collar removed at 1156 as patient has no pain and full range of motion. Call or position was difficult for the patient to maintain. We will get CT of the head and neck as well as chest x-ray and pelvis x-ray with left hip. Monitor patient. 1325: No acute findings on radiological evaluation. Patient overall doing well and has no complaints. Discharged home with return precautions. Patient and verbalize understanding instructions and agreement with plan. Diagnostic Imaging Diagonstic Imaging: CT Plain Films/CT/US/NM/MRI: c-spine, head Comments [facility], [place] NAME: [facility] REC#: [id number] PT STATUS: REG ER : 1935 PHYSICIAN: HUMA SHELDON MD ADMIT DATE: 03/10/19/ER Draft Date of Exam:03/10/19 CT HEAD/CERVICAL SPINE WO PROCEDURE: CT head and CT cervical spine without contrast. TECHNIQUE: Multiple contiguous axial images were obtained through the brain and cervical spine without the use of intravenous contrast. Sagittal and coronal reformations through the cervical spine were then performed. Auto Exposure Controls were utilized during the CT exam to meet ALARA standards for radiation dose reduction. INDICATION: Fall. COMPARISON: Head CT from 06/15/2018. FINDINGS: CT HEAD: The ventricles and sulci are stable in appearance. There is cavum septum pellucidum and cavum vergae. Moderate periventricular hypodensity is noted, consistent with senescent change. There is no sulcal effacement or midline shift. No acute intra-axial or extra-axial hemorrhage is detected. The cisterns are patent. The visualized paranasal sinuses are clear. IMPRESSION: Senescent changes. No acute intracranial process is detected. CT CERVICAL SPINE: The curvature is normal. There is minimal anterolisthesis of C4 on C5. Multilevel degenerative disc disease is seen with variable disc space narrowing and marginal spurring. There appears to be partial osseous fusion between the C3 and C4 vertebral bodies. No fractures are identified. The prevertebral tissues are unremarkable. The odontoid is intact. Multilevel facet arthropathy is seen. IMPRESSION: Cervical spondylosis. No acute bony abnormality is detected. Dictated on workstation # [id number] Dict: 03/10/19 1246 Trans: 03/10/19 1257 MARK [id number] Interpreted by: RASTA CORNEJO MD Electronically signed by: Diagonssandy Imaging: Xray Plain Films/CT/US/NM/MRI: chest Comments [facility], [place] NAME: [facility] REC#: [id number] PT STATUS: REG ER : 1935 PHYSICIAN: HUMA SHELDON MD ADMIT DATE: 03/10/19/ER Draft Date of Exam:03/10/19 CHEST 1 VIEW, AP/PA ONLY INDICATION: Fall. TIME OF EXAMINATION: 12:26 PM. COMPARISON: 02/10/2019. FINDINGS: Changes of median sternotomy and CABG are noted. The cardiac pacemaker remains in place. The lungs are clear. No infiltrates are seen. No effusion or pneumothorax is identified. IMPRESSION: No acute cardiopulmonary process is detected. Dictated on workstation # [id number] Dict: 03/10/19 1243 Trans: 03/10/19 1245 MARK [id number] Interpreted by: RASTA CORNEJO MD Electronically signed by: Peggy Imaging: Xray Plain Films/CT/US/NM/MRI: pelvis, hip Comments [facility], [place] NAME: [facility] REC#: [id number] PT STATUS: REG ER : 1935 PHYSICIAN: HUMA SHELDON MD ADMIT DATE: 03/10/19/ER Draft Date of Exam:03/10/19 PELVIS WITH LEFT HIP 2-3 VIEWS INDICATION: Fall. TIME OF EXAMINATION: 12:28 PM. TECHNIQUE: An AP view of the pelvis and two views of the left hip were obtained. FINDINGS: The femoroacetabular alignment is normal bilaterally. Both femoral heads and necks appear to be intact. The rami are intact. The SI joints and symphysis are not widened. No fractures are seen. IMPRESSION: No acute bony abnormality is detected. Dictated on workstation # [id number] Dict: 03/10/19 1244 Trans: 03/10/19 1245 [id number] Interpreted by: RASTA CORNEJO MD Electronically signed by: Departure Impression Primary Impression: Contusion of hip, left Qualified Codes: S70.02XA - Contusion of left hip, initial encounter Additional Impression: Fall at home Qualified Codes: W19.XXXA - Unspecified fall, initial encounter; Y92.009 - Unspecified place in unspecified non-institutional (private) residence as the place of occurrence of the external cause Disposition: 01 HOME, SELF-CARE Condition: Improved Departure-Patient Inst. Decision time for Depature: 13:28 Referrals: JAZIEL PRATER MD (PCP/Family) Primary Care Physician Patient Instructions: Contusion (DC), Preventing Falls Add. Discharge Instructions: All discharge instructions reviewed with patient and/or family. Voiced understanding. Continue home medications as previously prescribed. Follow-up with your DrNik in a few days for recheck as needed. Return for worse pain, fever, vomiting, weakness, breathing problems, vision or balance problems or other concerns as needed. HUMA SHELDON MD Mar 10, 2019 12:13
--- NOTE | 2019-03-10 12:15 | NUR ---
Low blood pressure at this time. Pt's arm contracted.
--- OUTSIDE RECORDS SUMMARY | 2019-03-10 12:25 | XMS REPORT | Continuity of Care Document ---
Author Organization Unknown Address Unknown Allergies Active Description Code Type Severity Reaction Onset Reported/Identified Relationship to Patient Clinical Status Yes NO KNOWN DRUG ALLERGIES UNKNOWN NO KNOWN DRUG ALLERG Yes NO KNOWN DRUG ALLERGIES UNKNOWN UNKNOWN Yes No Known Drug Allergies [id number] Drug Allergy Unknown N/A 11/18/2012 Medications Medication [...] MG (OMEGA 3) MG 01/11/2019 02/09/2019 Daily&0900 Skyryoge-sqzj-lrm-folic acid) tab,CHEWable (Centrum) TAB 01/11/2019 02/09/2019 Daily&0900 [...] Ot V58.61 ANTICOAGULANTS,LT,CURRENT USE 05/10/2013 WILLIAMS [employer] SUPER[employer] Ot 427.31 ATRIAL FIBRILLATION 05/10/2013 BAIMAWILLIAMS [employer] SUPERVISOR Ot V58.61 ANTICOAGULANTS,LT,CURRENT USE 06/08/2013 BUSTILLO DO, [...] FACP CCDS Ot 414.01 CORONARY ATHEROSCLEROSIS OF [place] CORON 07/05/2013 AGNIESZKA PARDO MD, FACCP CCDS [...] V58.69 OTH MED,LT,CURRENT USE 08/24/2013 WILLIAMS [employer] SUPERVISOR Ot 427.31 ATRIAL FIBRILLATION 08/24/2013 WILLIAMS [employer] SUPERVISOR Ot V58.61 ANTICOAGULANTS,LT,CURRENT USE 10/11/2013 ROGELIO CORTES [...] V58.69 OTH MED,LT,CURRENT USE 11/30/2013 [employer]IAMS [employer] SUPERVISOR Ot 427.31 ATRIAL FIBRILLATION 11/30/2013 WILLIAMS [employer] SUPERVISOR Ot V58.61 ANTICOAGULANTS,LT,CURRENT USE 01/04/2014 ROGELIO CORTES [...] V58.69 OTH MED,LT,CURRENT USE 03/22/2014 WILLIAMS [employer] SUPERVISOR Ot 427.31 ATRIAL FIBRILLATION 03/22/2014 WILLIAMS [employer] SUPERVISOR Ot V58.61 ANTICOAGULANTS,LT,CURRENT USE 04/11/2014 ROGELIO CORTES [...] CCDS Ot V58.61 01/02/2015 BAIMA, WILLIAMS L [employer] SUPERVISOR Ot 272.4 01/02/2015 BAIMA, [employer] SUPERVISOR Ot 401.9 01/02/2015 BAIMA, [employer] SUPERVISOR Ot 414.00 01/02/2015 BAIMA, [employer] SUPERVISOR Ot 427.31 01/19/2015 BAIMA, [employer] SUPERVISOR Ot 272.4 01/19/2015 BAIMA, [employer] SUPERVISOR Ot 401.9 01/19/2015 BAIMA, [employer] SUPERVISOR Ot 414.9 01/19/2015 BAIMA, [employer] SUPERVISOR Ot 427.31 02/01/2015 CHAR SHIRLEY FACC, AGNIESZKA [...] Aristeo Ot I25.10 ATHSCL HEART DISEASE OF [place] CORONARY 09/12/2015 ROGELIO CORTES MD Ot I48.91 UNSPECIFIED ATRIAL FIBRILLATION 09/12/2015 ROGELIO CORTES MD Ot N18.9 CHRONIC KIDNEY DISEASE, UNSPECIFIED 09/12/2015 SEBASTIAN SHIRLEY ROGELIO Aristeo Ot Z79.01 RETIREMENT (CURRENT) USE OF ANTICOAGULANT 09/12/2015 ROGELIO CORTES MD Ot Z79.899 OTHER GRAIN BROKER (CURRENT) DRUG THERAPY 10/10/2015 CHAR SHIRLEY FACC, ALI FACP CCDS Ot I48.91 UNSPECIFIED ATRIAL FIBRILLATION 10/10/2015 CHAR SHIRLEY FACC, ALI FACP CCDS Ot Z51.81 ENCOUNTER FOR THERAPEUTIC DRUG LEVEL MON 10/10/2015 CHAR SHIRLEY FACC ALI FACP CCDS Ot Z79.01 RETIREMENT (CURRENT) USE OF ANTICOAGULANT 10/30/2015 Ot 272.4 [...] CCDS Ot 729.81 10/30/2015 CHAR SHIRLEY [facility], ALI FACP CCDS Ot 786.09 10/30/2015 CHAR SHIRLEY [facility], ALI FACP CCDS Ot V58.69 10/30/2015 BAIMA, WILLIAMS L [employer] SUPERVISOR Ot 790.6 10/30/2015 BAIMA, [employer] SUPERVISOR Ot 790.6 10/30/2015 BAIMA, [employer] SUPERVISOR Ot 428.0 10/30/2015 BAIMA, [employer] SUPERVISOR Ot 428.0 10/30/2015 CHAR SHIRLEY [facility], ALI FACP CCDS Ot 414.00 10/30/2015 CHAR SHIRLEY [facility], [facility] FACP CCDS Ot 429.3 10/30/2015 CHAR SHIRLEY [facility], ALI FACP CCDS Ot 786.59 10/30/2015 CHAR SHIRLEY [facility], [facility] FACP CCDS Ot V45.81 10/30/2015 BAIMA, WILLIAMS [employer] SUPERVISOR Ot 272.4 10/30/2015 Ot 272.0 10/30/2015 Ot 278.00 10/30/2015 Ot 287.5 10/30/2015 Ot 403.90 10/30/2015 Ot 414.00 10/30/2015 Ot 427.31 10/30/2015 Ot 447.9 10/30/2015 Ot 585.9 10/30/2015 Ot 780.79 10/30/2015 Ot V12.61 10/30/2015 Ot V58.61 10/30/2015 BAIMA, [employer]IAMS [employer] SUPERVISOR Ot 272.4 10/30/2015 BAIMA, [employer] SUPERVISOR Ot 401.9 10/30/2015 BAIMA, [employer] SUPERVISOR Ot 414.00 10/30/2015 BAIMA, [employer] SUPERVISOR Ot 427.31 10/30/2015 BAIMA, [employer] SUPERVISOR Ot 272.4 10/30/2015 BAIMA, [employer] SUPERVISOR Ot 401.9 10/30/2015 BAIMA, [employer] SUPERVISOR Ot 414.9 10/30/2015 BAIMA, [employer] SUPERVISOR Ot 427.31 10/30/2015 MOI SHIRLEY, JAZIEL R [...] R Ot I25.10 ATHSCL HEART DISEASE OF [place] CORONARY 11/01/2015 MOI SHIRLEY, JAZIEL R Ot [...] 11/01/2015 MOI SHIRLEY, JAZIEL R Ot Z79.01 GRAIN BROKER (CURRENT) USE OF ANTICOAGULANT 11/01/2015 MOI SHIRLEY, [...] AGNIESZKA PARDO MD, FACCP CCDS Ot Z79.01 GRAIN BROKER (CURRENT) USE OF ANTICOAGULANT 01/04/2016 AGNIESZKA PARDO MD, FACCP CCDS Ot I10 ESSENTIAL (PRIMARY) HYPERTENSION 01/04/2016 CHAR SHIRLEY FACC, AGNIESZKA BURGERP CCDS Ot I10 ESSENTIAL (PRIMARY) HYPERTENSION 01/04/2016 HUMA SHELDON MD Ot S80.12XA CONTUSION OF LEFT LOWER LEG, INITIAL ENC 01/04/2016 HUMA SHELDON MD, Ot V58.3XXA [facility] 01/04/2016 HUMA SHELDON MD Ot Y99.8 OTHER EXTERNAL CAUSE STATUS 01/04/2016 HUMA SHELDON MD Ot Z79.01 GRAIN BROKER (CURRENT) USE OF ANTICOAGULANT 01/04/2016 HUMA SHELDON MD Ot Z95.0 PRESENCE OF CARDIAC PACEMAKER 01/06/2016 HUMA SHELDON MD Ot S80.12XA CONTUSION OF LEFT LOWER LEG, INITIAL ENC 01/06/2016 HUMA SHELDON MD Ot V58.3XXA OCCUP OF PK-UP/VAN INJ IN NONCN [facility] 01/06/2016 HUMA SHELDON MD Ot Y99.8 OTHER EXTERNAL CAUSE STATUS 01/06/2016 HUMA SHELDON MD Ot Z79.01 RETIREMENT (CURRENT) USE OF ANTICOAGULANT 01/06/2016 HUMA SHELDON MD Ot Z95.0 PRESENCE OF CARDIAC PACEMAKER 01/07/2016 CHAR SHIRLEY FACC, AGNIESZKA BURGERP CCDS Ot D69.6 THROMBOCYTOPENIA, UNSPECIFIED 01/07/2016 AGNIESZKA PARDO MD, FACCP CCDS Ot E78.0 PURE HYPERCHOLESTEROLEMIA 01/07/2016 AGNISEZKA PAROD MD, FACCP CCDS Ot I12.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 01/07/2016 AGNIESZKA PARDO MD, FACCP CCDS Ot I25.10 ATHSCL HEART DISEASE OF [place] CORONARY 01/07/2016 CHAR SHIRLEY FACC, AGNIESZKA FACP [...] STATUS 01/10/2016 HUMA SHELDON MD Ot Z79.01 GRAIN BROKER (CURRENT) USE OF ANTICOAGULANT 01/10/2016 HUMA SHELDON [...] CCDS Ot I25.10 ATHSCL HEART DISEASE OF [place] CORONARY 01/24/2016 CHAR SHIRLEY FACC, AGNIESZKA FACP [...] SHIRLEY FACC, ALI FACP CCDS Ot Z79.01 RETIREMENT (CURRENT) USE OF ANTICOAGULANT 04/11/2016 CHAR SHIRLEY FACC, ALI FACP CCDS Ot I48.91 UNSPECIFIED ATRIAL FIBRILLATION 04/11/2016 CHAR SHIRLEY FACC, ALI FACP CCDS Ot Z51.81 ENCOUNTER FOR THERAPEUTIC DRUG LEVEL MON 04/11/2016 CHAR SHIRLEY FACC, ALI FACP CCDS Ot Z79.01 RETIREMENT (CURRENT) USE OF ANTICOAGULANT 04/29/2016 CHAR SHIRLEY FACC, ALI FACP CCDS Ot I48.91 UNSPECIFIED ATRIAL FIBRILLATION 04/29/2016 CHAR SHIRLEY FACC, ALI FACP CCDS Ot Z51.81 ENCOUNTER FOR THERAPEUTIC DRUG LEVEL MON 04/29/2016 CHAR SHIRLEY FACC, ALI FACP CCDS Ot Z79.01 RETIREMENT (CURRENT) USE OF ANTICOAGULANT 05/07/2016 CHAR BURGERC, ALI FACP CCDS Ot I48.91 UNSPECIFIED ATRIAL FIBRILLATION 05/07/2016 CHAR SHIRLEY FACC, ALI FACP CCDS Ot Z51.81 ENCOUNTER FOR THERAPEUTIC DRUG LEVEL MON 05/07/2016 CHAR SHIRLEY FACC, ALI FACP CCDS Ot Z79.01 RETIREMENT (CURRENT) USE OF ANTICOAGULANT 06/09/2016 CHAR SHIRLEY FACC, ALI FACP CCDS Ot I48.91 UNSPECIFIED ATRIAL FIBRILLATION 06/09/2016 CHAR SHIRLEY FACC, ALI FACP CCDS Ot Z51.81 ENCOUNTER FOR THERAPEUTIC DRUG LEVEL MON 06/09/2016 CHAR SHIRLEY FACC, ALI FACP CCDS Ot Z79.01 RETIREMENT (CURRENT) USE OF ANTICOAGULANT 06/13/2016 ROGELIO CORTES MD Ot D50.9 IRON DEFICIENCY ANEMIA, UNSPECIFIED 06/13/2016 ROGELIO CORTES MD Ot D69.6 THROMBOCYTOPENIA, UNSPECIFIED 06/13/2016 ROGELIO CORTES MD Ot E78.5 HYPERLIPIDEMIA, UNSPECIFIED 06/13/2016 ROGELIO CORTES MD Ot I12.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 06/13/2016 ROGELIO CORTES MD Ot I25.10 ATHSCL HEART DISEASE OF [place] CORONARY 06/13/2016 ROGELIO CORTES MD Ot I48.91 UNSPECIFIED ATRIAL FIBRILLATION 06/13/2016 ROGELIO CORTES MD Ot N18.9 CHRONIC KIDNEY DISEASE, UNSPECIFIED 06/13/2016 ROGELIO CORTES MD Ot Z79.01 RETIREMENT (CURRENT) USE OF ANTICOAGULANT 06/13/2016 ROGELIO CORTES MD, Ot Z79.899 OTHER GRAIN BROKER (CURRENT) DRUG THERAPY 07/22/2016 ROGELIO CORTES MD, Ot D50.9 IRON DEFICIENCY ANEMIA, UNSPECIFIED 07/22/2016 ROGELIO CORTES MD Ot D69.6 THROMBOCYTOPENIA, UNSPECIFIED 07/22/2016 ROGELIO CORTES MD Ot E78.5 HYPERLIPIDEMIA, UNSPECIFIED 07/22/2016 ROGELIO CORTES MD Ot I12.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 07/22/2016 ROGELIO CORTES MD Ot I25.10 ATHSCL HEART DISEASE OF [place] CORONARY 07/22/2016 ROGELIO CORTES MD, Ot I48.91 UNSPECIFIED ATRIAL FIBRILLATION 07/22/2016 ROGELIO CORTES MD, Ot N18.9 CHRONIC KIDNEY DISEASE, UNSPECIFIED 07/22/2016 ROGELIO CORTES MD Ot Z79.01 GRAIN BROKER (CURRENT) USE OF ANTICOAGULANT 07/22/2016 ROGELIO CORTES MD Ot Z79.899 OTHER GRAIN BROKER (CURRENT) DRUG THERAPY 08/05/2016 CHAR SHIRLEY FAC, ALI FACP CCDS Ot I48.91 UNSPECIFIED ATRIAL FIBRILLATION 08/05/2016 CHAR SHIRLEY FACC, ALI FACP CCDS Ot Z51.81 ENCOUNTER FOR THERAPEUTIC DRUG LEVEL MON 08/05/2016 CHAR SHIRLEY FACC, ALI FACP CCDS Ot Z79.01 GRAIN BROKER (CURRENT) USE OF ANTICOAGULANT 09/10/2016 ROGELIO CORTES MD, Ot D50.9 IRON DEFICIENCY ANEMIA, UNSPECIFIED 09/10/2016 ROGELIO CORTES MD Ot D69.6 THROMBOCYTOPENIA, UNSPECIFIED 09/10/2016 ROGELIO CORTES MD Ot E78.5 HYPERLIPIDEMIA, UNSPECIFIED 09/10/2016 ROGELIO CORTES MD Ot I12.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 09/10/2016 ROGELIO CORTES MD Ot I25.10 ATHSCL HEART DISEASE OF [place] CORONARY 09/10/2016 ROGELIO CORTES MD Ot I48.91 UNSPECIFIED ATRIAL FIBRILLATION 09/10/2016 ROGELIO CORTES MD Ot N18.9 CHRONIC KIDNEY DISEASE, UNSPECIFIED 09/10/2016 ROGELIO CORTES MD Ot Z79.01 GRAIN BROKER (CURRENT) USE OF ANTICOAGULANT 09/10/2016 ROGELIO CORTES MD, Ot Z79.899 OTHER RETIREMENT (CURRENT) DRUG THERAPY 09/11/2016 ROGELIO CORTES MD Ot D50.9 IRON DEFICIENCY ANEMIA, UNSPECIFIED 09/11/2016 ROGELIO CORTES MD Ot D69.6 THROMBOCYTOPENIA, UNSPECIFIED 09/11/2016 ROGELIO CORTES MD Ot E78.5 HYPERLIPIDEMIA, UNSPECIFIED 09/11/2016 ROGELIO CORTES MD Ot I12.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 09/11/2016 ROGELIO CORTES MD Ot I25.10 ATHSCL HEART DISEASE OF [place] CORONARY 09/11/2016 ROGELIO CORTES MD Ot I48.91 UNSPECIFIED ATRIAL FIBRILLATION 09/11/2016 ROGELIO CORTES MD Ot N18.9 CHRONIC KIDNEY DISEASE, UNSPECIFIED 09/11/2016 ROGELIO CORTES MD Ot Z79.01 RETIREMENT (CURRENT) USE OF ANTICOAGULANT 09/11/2016 ROGELIO CORTES MD Ot Z79.899 OTHER GRAIN BROKER (CURRENT) DRUG THERAPY 10/15/2016 CHAR SHIRLEY FACC, AGNIESZKA FACP CCDS Ot I48.91 UNSPECIFIED ATRIAL FIBRILLATION 10/15/2016 CHAR SHIRLEY FACC, ALI FACP CCDS Ot Z51.81 ENCOUNTER FOR THERAPEUTIC DRUG LEVEL MON 10/15/2016 CHAR SHIRLEY FACC, ALI FACP CCDS Ot Z79.01 RETIREMENT (CURRENT) USE OF ANTICOAGULANT 10/16/2016 CHAR SHIRLEY FACC, AGNIESZKA FACP CCDS Ot I48.91 UNSPECIFIED ATRIAL FIBRILLATION 10/16/2016 CHAR SHIRLEY FACC, ALI FACP CCDS Ot Z51.81 ENCOUNTER FOR THERAPEUTIC DRUG LEVEL MON 10/16/2016 CHAR SHIRLEY FACC ALI FACP CCDS Ot Z79.01 RETIREMENT (CURRENT) USE OF ANTICOAGULANT 11/03/2016 CHAR SHIRLEY FACC ALI FACP CCDS Ot I48.91 UNSPECIFIED ATRIAL FIBRILLATION 11/03/2016 CHAR SHIRLEY FACC ALI FACP CCDS Ot Z51.81 ENCOUNTER FOR THERAPEUTIC DRUG LEVEL MON 11/03/2016 CHAR SHIRLEY FACC ALI FACP CCDS Ot Z79.01 RETIREMENT (CURRENT) USE OF ANTICOAGULANT 12/10/2016 ROGELIO CORTES MD Ot D50.9 IRON DEFICIENCY ANEMIA, UNSPECIFIED 12/10/2016 ROGELIO CORTES MD Ot D69.6 THROMBOCYTOPENIA, UNSPECIFIED 12/10/2016 ROGELIO CORTES MD Ot E78.5 HYPERLIPIDEMIA, UNSPECIFIED 12/10/2016 ROGELIO CORTES MD Ot I12.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 12/10/2016 ROGELIO CORTES MD Ot I25.10 ATHSCL HEART DISEASE OF [place] CORONARY 12/10/2016 ROGELIO CORTES MD Ot I48.91 UNSPECIFIED ATRIAL FIBRILLATION 12/10/2016 ROGELIO CORTES MD Ot N18.9 CHRONIC KIDNEY DISEASE, UNSPECIFIED 12/10/2016 ROGELIO CORTES MD Ot Z79.01 RETIREMENT (CURRENT) USE OF ANTICOAGULANT 12/10/2016 ROGELIO CORTES MD Ot Z79.899 OTHER RETIREMENT (CURRENT) DRUG THERAPY 12/11/2016 ROGELIO CORTES MD Ot D50.9 IRON DEFICIENCY ANEMIA, UNSPECIFIED 12/11/2016 ROGELIO CORTES MD Ot D69.6 THROMBOCYTOPENIA, UNSPECIFIED 12/11/2016 ROGELIO CORTES MD Ot E78.5 HYPERLIPIDEMIA, UNSPECIFIED 12/11/2016 ROGELIO CORTES MD Ot I12.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 12/11/2016 ROGELIO CORTES MD Ot I25.10 ATHSCL HEART DISEASE OF [place] CORONARY 12/11/2016 ROGELIO CORTES MD Ot I48.91 UNSPECIFIED ATRIAL FIBRILLATION 12/11/2016 ROGELIO CORTES MD Ot N18.9 CHRONIC KIDNEY DISEASE, UNSPECIFIED 12/11/2016 ROGELIO CORTES MD Ot Z79.01 GRAIN BROKER (CURRENT) USE OF ANTICOAGULANT 12/11/2016 ROGELIO CORTES MD Ot Z79.899 OTHER RETIREMENT (CURRENT) DRUG THERAPY 01/13/2017 CHAR SHIRLEY FACC, AGNIESZKA FACP CCDS Ot I48.91 UNSPECIFIED ATRIAL FIBRILLATION 01/13/2017 CHAR SHIRLEY FACC, ALI FACP CCDS Ot Z79.01 RETIREMENT (CURRENT) USE OF ANTICOAGULANT 01/14/2017 CHAR SHIRLEY FACC, ALI FACP CCDS Ot I48.91 UNSPECIFIED ATRIAL FIBRILLATION 01/14/2017 CHAR SHIRLEY FACC, ALI FACP CCDS Ot Z79.01 GRAIN BROKER (CURRENT) USE OF ANTICOAGULANT 01/14/2017 ROGELIO CORTES MD Ot D50.9 IRON DEFICIENCY ANEMIA, UNSPECIFIED 01/14/2017 ROGELIO CORTES MD Ot D69.6 THROMBOCYTOPENIA, UNSPECIFIED 01/14/2017 ROGELIO CORTES MD Ot E78.5 HYPERLIPIDEMIA, UNSPECIFIED 01/14/2017 ROGELIO CORTES MD Ot I12.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 01/14/2017 ROGELIO CORTES MD Ot I25.10 ATHSCL HEART DISEASE OF [place] CORONARY 01/14/2017 ROGELIO CORTES MD Ot I48.91 UNSPECIFIED ATRIAL FIBRILLATION 01/14/2017 ROGELIO CORTES MD Ot N18.9 CHRONIC KIDNEY DISEASE, UNSPECIFIED 01/14/2017 ROGELIO CORTES MD Ot Z79.01 RETIREMENT (CURRENT) USE OF ANTICOAGULANT 01/14/2017 ROGELIO CORTES MD Ot Z79.899 OTHER GRAIN BROKER (CURRENT) DRUG THERAPY 01/14/2017 RGOELIO CORTES MD Ot D50.9 IRON DEFICIENCY ANEMIA, UNSPECIFIED 01/14/2017 ROGELIO CORTES MD Ot D69.6 THROMBOCYTOPENIA, UNSPECIFIED 01/14/2017 ROGELIO CORTES MD Ot E78.5 HYPERLIPIDEMIA, UNSPECIFIED 01/14/2017 ROGELIO CORTES MD Ot I12.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 01/14/2017 ROGELIO CORTES MD Ot I25.10 ATHSCL HEART DISEASE OF [place] CORONARY 01/14/2017 ROGELIO CORTES MD Ot I48.91 UNSPECIFIED ATRIAL FIBRILLATION 01/14/2017 ROGELIO CORTES MD Ot N18.9 CHRONIC KIDNEY DISEASE, UNSPECIFIED 01/14/2017 ROGELIO CORTES MD Ot Z79.01 GRAIN BROKER (CURRENT) USE OF ANTICOAGULANT 01/14/2017 ROGELIO CORTES MD Ot Z79.899 OTHER RETIREMENT (CURRENT) DRUG THERAPY 01/14/2017 ROGELIO CORTES MD Ot D50.9 IRON DEFICIENCY ANEMIA, UNSPECIFIED 01/14/2017 ROGELIO CORTES MD Ot D69.6 THROMBOCYTOPENIA, UNSPECIFIED 01/14/2017 ROGELIO CORTES MD Ot E78.5 HYPERLIPIDEMIA, UNSPECIFIED 01/14/2017 ROGELIO CORTES MD Ot I12.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 01/14/2017 ROGELIO CORTES MD Ot I25.10 ATHSCL HEART DISEASE OF [place] CORONARY 01/14/2017 ROGELIO CORTES MD Ot I48.91 UNSPECIFIED ATRIAL FIBRILLATION 01/14/2017 ROGELIO CORTES MD Ot N18.9 CHRONIC KIDNEY DISEASE, UNSPECIFIED 01/14/2017 ROGELIO CORTES MD Ot Z79.01 RETIREMENT (CURRENT) USE OF ANTICOAGULANT 01/14/2017 ROGELIO CORTES MD Ot Z79.899 OTHER GRAIN BROKER (CURRENT) DRUG THERAPY 03/10/2017 SEBASTIAN SHIRLEY, ROGELIO Alberts Ot D50.9 IRON DEFICIENCY ANEMIA, UNSPECIFIED 03/10/2017 SEBASTIAN SHIRLEY, ROGELIO Alberts Ot D69.6 THROMBOCYTOPENIA, UNSPECIFIED 03/10/2017 SEBASTIAN SHIRLEY, ROGELIO Alberts Ot E78.5 HYPERLIPIDEMIA, UNSPECIFIED 03/10/2017 SEBASTIAN SHIRLEY, ROGELIO Alberts Ot I12.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 03/10/2017 SEBASTIAN SHIRLEY, ROGELIO Alberts Ot I25.10 ATHSCL HEART DISEASE OF [place] CORONARY 03/10/2017 SEBASTIAN SHIRLEY, ROGELIO Alberts Ot I48.91 UNSPECIFIED ATRIAL FIBRILLATION 03/10/2017 SEBASTIAN SHIRLEY, ROGELIO Alberts Ot N18.9 CHRONIC KIDNEY DISEASE, UNSPECIFIED 03/10/2017 SEBASTIAN SHIRLEY, ROGELIO Alberts Ot Z79.01 RETIREMENT (CURRENT) USE OF ANTICOAGULANT 03/10/2017 SEBASTIAN SHIRLEY, ROGELIO Alberts Ot Z79.899 OTHER RETIREMENT (CURRENT) DRUG THERAPY 03/16/2017 BAIMA, WILLIAMS L [employer] SUPERVISOR Ot D50.9 IRON DEFICIENCY ANEMIA, UNSPECIFIED 03/16/2017 BAIMA, WILLI[employer] SUPERVISOR Ot D69.6 THROMBOCYTOPENIA, UNSPECIFIED 03/16/2017 BAIMA, [employer] SUPERVISOR Ot E78.5 HYPERLIPIDEMIA, UNSPECIFIED 03/16/2017 BAIMA, [employer] SUPERVISOR Ot I12.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 03/16/2017 BAIMA, WILLI[employer] SUPERVISOR Ot I25.10 ATHSCL HEART DISEASE OF [place] CORONARY 03/16/2017 BAIMA, WILLIAMS L [employer] SUPERVISOR Ot I48.91 UNSPECIFIED ATRIAL FIBRILLATION 03/16/2017 BAIMA, WILLI[employer] SUPERVISOR Ot N18.9 CHRONIC KIDNEY DISEASE, UNSPECIFIED 03/16/2017 BAIMA, WILLIAMS [employer] SUPERVISOR Ot Z79.01 RETIREMENT (CURRENT) USE OF ANTICOAGULANT 03/16/2017 BAIMA, WILLIAMS [employer] SUPERVISOR Ot Z79.899 OTHER GRAIN BROKER (CURRENT) DRUG THERAPY 03/17/2017 BAIMA, WILLIAMS [employer] SUPERVISOR Ot D50.9 IRON DEFICIENCY ANEMIA, UNSPECIFIED 03/17/2017 BAIMA, WILLI[employer] SUPERVISOR Ot D69.6 THROMBOCYTOPENIA, UNSPECIFIED 03/17/2017 BAIMA, WILLI[employer] SUPERVISOR Ot E78.5 HYPERLIPIDEMIA, UNSPECIFIED 03/17/2017 BAIMA, WILLI[employer] SUPERVISOR Ot I12.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 03/17/2017 BAIMA, WILLIAMS [employer] SUPERVISOR Ot I25.10 ATHSCL HEART DISEASE OF [place] CORONARY 03/17/2017 BAIMA, WILLIAMS L [employer] SUPERVISOR Ot I48.91 UNSPECIFIED ATRIAL FIBRILLATION 03/17/2017 BAIMA, WILLIAMS L [employer] SUPERVISOR Ot N18.9 CHRONIC KIDNEY DISEASE, UNSPECIFIED 03/17/2017 BAIMA, WILLIAMS L [employer] SUPERVISOR Ot Z79.01 RETIREMENT (CURRENT) USE OF ANTICOAGULANT 03/17/2017 BAIMA, WILLIAMS [employer] SUPERVISOR Ot Z79.899 OTHER RETIREMENT (CURRENT) DRUG THERAPY 04/15/2017 BAIMA, WILLIAMS L [employer] SUPERVISOR Ot D50.9 IRON DEFICIENCY ANEMIA, UNSPECIFIED 04/15/2017 BAIMA, WILLI[employer] SUPERVISOR Ot D69.6 THROMBOCYTOPENIA, UNSPECIFIED 04/15/2017 BAIMA, WILLIAMS [employer] SUPERVISOR Ot E78.5 HYPERLIPIDEMIA, UNSPECIFIED 04/15/2017 BAIMA, WILLIAMS L [employer] SUPERVISOR Ot I12.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 04/15/2017 BAIMA, WILLIAMS L [employer] SUPERVISOR Ot I25.10 ATHSCL HEART DISEASE OF [place] CORONARY 04/15/2017 BAIMA, WILLIAMS L [employer] SUPERVISOR Ot I48.91 UNSPECIFIED ATRIAL FIBRILLATION 04/15/2017 BAIMA, WILLIAMS [employer] SUPERVISOR Ot N18.9 CHRONIC KIDNEY DISEASE, UNSPECIFIED 04/15/2017 BAIMA, WILLIAMS [employer] SUPERVISOR Ot Z79.01 GRAIN BROKER (CURRENT) USE OF ANTICOAGULANT 04/15/2017 BAIMA, WILLIAMS L [employer] SUPERVISOR Ot Z79.899 OTHER RETIREMENT (CURRENT) DRUG THERAPY 04/28/2017 BAIMA, [employer] SUPERVISOR Ot D50.9 IRON DEFICIENCY ANEMIA, UNSPECIFIED 04/28/2017 BAIMA, [employer] SUPERVISOR Ot D69.6 THROMBOCYTOPENIA, UNSPECIFIED 04/28/2017 BAIMA, [employer] SUPERVISOR Ot E78.5 HYPERLIPIDEMIA, UNSPECIFIED 04/28/2017 BAIMA, [employer] SUPERVISOR Ot I12.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 04/28/2017 BAIMA, [employer] SUPERVISOR Ot I25.10 ATHSCL HEART DISEASE OF [place] CORONARY 04/28/2017 BAIMA, [employer] SUPERVISOR Ot I48.91 UNSPECIFIED ATRIAL FIBRILLATION 04/28/2017 BAIMA, [employer] SUPERVISOR Ot N18.9 CHRONIC KIDNEY DISEASE, UNSPECIFIED 04/28/2017 JEREMIAH CHAVEZHER L [employer] GU[employer] SUPERVISOR Ot Z79.01 GRAIN BROKER (CURRENT) USE OF ANTICOAGULANT 04/28/2017 JEREMIAH CHAVEZHER L [employer] SUPERVISOR Ot Z79.899 OTHER RETIREMENT (CURRENT) DRUG THERAPY 05/18/2017 Ot 786.50 CHEST [...] OTH MED,LT,CURRENT USE 05/18/2017 BAIMA, [employer] SUPERVISOR Ot 790.6 ABN BLOOD CHEMISTRY NEC 05/18/2017 BAIMA, [employer] SUPERVISOR Ot 790.6 ABN BLOOD CHEMISTRY NEC 05/18/2017 BAIMA, [employer] SUPERVISOR Ot 428.0 CONGESTIVE HEART FAILURE NOS 05/18/2017 BAIMA, [employer] SUPERVISOR Ot 428.0 CONGESTIVE HEART FAILURE NOS 05/18/2017 CHAR SHIRLEY FACC, ALI FACP CCDS Ot 414.00 CORON ATHEROSCLER NOS TYPE VESSEL, NATIV 05/18/2017 CHAR SHIRLEY FACC, ALI FACP CCDS Ot 429.3 CARDIOMEGALY 05/18/2017 CHAR SHIRLEY FACC, ALI FACP CCDS Ot 786.59 CHEST PAIN NEC 05/18/2017 CHAR SHIRLEY FACC, ALI FACP CCDS Ot 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 05/18/2017 BAIJEROME, [employer] SUPERVISOR Ot 272.4 HYPERLIPIDEMIA NEC/NOS 05/18/2017 Ot 272.0 [...] V58.61 ANTICOAGULANTS,LT,CURRENT USE 05/18/2017 BAIMA, [employer] SUPERVISOR Ot 272.4 HYPERLIPIDEMIA NEC/NOS 05/18/2017 BAIMA, [employer] SUPERVISOR Ot 401.9 HYPERTENSION NOS 05/18/2017 BAIMA, [employer] SUPERVISOR Ot 414.00 CORON ATHEROSCLER NOS TYPE VESSEL, NATIV 05/18/2017 BAIMA, [employer] SUPERVISOR Ot 427.31 ATRIAL FIBRILLATION 05/18/2017 BAIMA, [employer] SUPERVISOR Ot 272.4 HYPERLIPIDEMIA NEC/NOS 05/18/2017 BAIMA, [employer] SUPERVISOR Ot 401.9 HYPERTENSION NOS 05/18/2017 BAIMA, [employer] SUPERVISOR Ot 414.9 CHR ISCHEMIC HRT DIS NOS 05/18/2017 BAIMA, [employer] SUPERVISOR Ot 427.31 ATRIAL FIBRILLATION 05/18/2017 MOI SHIRLEY, [...] CCDS Ot I25.10 ATHSCL HEART DISEASE OF [place] CORONARY 05/18/2017 CHAR SHIRLEY FACC, ALI FACP CCDS Ot I34.0 NONRHEUMATIC MITRAL (VALVE) INSUFFICIENC 05/18/2017 CHAR SIHRLEY FACC, ALI FACP CCDS Ot I48.0 PAROXYSMAL ATRIAL FIBRILLATION 05/18/2017 CHAR SHIRLEY FACC, ALI FACP CCDS Ot 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 05/18/2017 CHAR SHIRLEY FACC, ALI FACP CCDS Ot N18.2 CHRONIC KIDNEY DISEASE, STAGE 2 (MILD) 05/18/2017 CHAR SHIRLEY FACC, ALI FACP CCDS Ot I48.91 UNSPECIFIED ATRIAL FIBRILLATION 05/18/2017 CHAR SHIRLEY FACC, ALI FACP CCDS Ot Z79.01 GRAIN BROKER (CURRENT) USE OF ANTICOAGULANT 05/18/2017 DORISMA, [employer] SUPERVISOR Ot D50.9 IRON DEFICIENCY ANEMIA, UNSPECIFIED 05/18/2017 BAIMA, [employer] SUPERVISOR Ot D69.6 THROMBOCYTOPENIA, UNSPECIFIED 05/18/2017 BAIMA, [employer] SUPERVISOR Ot E78.5 HYPERLIPIDEMIA, UNSPECIFIED 05/18/2017 BAIMA, [employer] SUPERVISOR Ot I12.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 05/18/2017 BAIMA, [employer] SUPERVISOR Ot I25.10 ATHSCL HEART DISEASE OF [place] CORONARY 05/18/2017 BAIMA, [employer] SUPERVISOR Ot I48.91 UNSPECIFIED ATRIAL FIBRILLATION 05/18/2017 BAIMA, [employer] SUPERVISOR Ot N18.9 CHRONIC KIDNEY DISEASE, UNSPECIFIED 05/18/2017 BAIMA, [employer] SUPERVISOR Ot Z79.01 RETIREMENT (CURRENT) USE OF ANTICOAGULANT 05/18/2017 BAIMA, [employer] SUPERVISOR Ot Z79.899 OTHER RETIREMENT (CURRENT) DRUG THERAPY 05/30/2017 BAIMA, [employer] SUPERVISOR Ot I48.0 PAROXYSMAL ATRIAL FIBRILLATION 05/30/2017 BAIMA, [employer] SUPERVISOR Ot Z79.01 RETIREMENT (CURRENT) USE OF ANTICOAGULANT 06/03/2017 BAIMA, [employer] SUPERVISOR Ot I48.0 PAROXYSMAL ATRIAL FIBRILLATION 06/03/2017 WILLIAMS CHAVEZ [employer] SUPERVISOR Ot Z79.01 GRAIN BROKER (CURRENT) USE OF ANTICOAGULANT 06/11/2017 CHAR SHIRLEY [...] SHIRLEY FACJanay, ALI FACP CCDS Ot Z79.01 RETIREMENT (CURRENT) USE OF ANTICOAGULANT 06/19/2017 SLOAN NICE MD Ot D50.9 IRON DEFICIENCY ANEMIA, UNSPECIFIED 06/19/2017 SLOAN NICE MD Ot D69.6 THROMBOCYTOPENIA, UNSPECIFIED 06/19/2017 SLOAN NICE MD Ot E78.5 HYPERLIPIDEMIA, UNSPECIFIED 06/19/2017 SLOAN NICE MD Ot I12.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 06/19/2017 SLOAN NICE MD Ot I25.10 ATHSCL HEART DISEASE OF [place] CORONARY 06/19/2017 SLOAN NICE MD Ot I48.91 UNSPECIFIED ATRIAL FIBRILLATION 06/19/2017 SLOAN NICE MD Ot N18.9 CHRONIC KIDNEY DISEASE, UNSPECIFIED 06/19/2017 SLOAN NICE MD Ot Z79.01 GRAIN BROKER (CURRENT) USE OF ANTICOAGULANT 06/19/2017 SLOAN NICE MD Ot Z79.899 OTHER GRAIN BROKER (CURRENT) DRUG THERAPY 07/06/2017 SLOAN NICE MD, Ot D50.9 IRON DEFICIENCY ANEMIA, UNSPECIFIED 07/06/2017 SLOAN NICE MD, Ot D69.6 THROMBOCYTOPENIA, UNSPECIFIED 07/06/2017 SLOAN NICE MD Ot E78.5 HYPERLIPIDEMIA, UNSPECIFIED 07/06/2017 SLOAN NICE MD Ot I12.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 07/06/2017 SLOAN NICE MD Ot I25.10 ATHSCL HEART DISEASE OF [place] CORONARY 07/06/2017 SLOAN NICE MD Ot I48.91 UNSPECIFIED ATRIAL FIBRILLATION 07/06/2017 SLOAN NICE MD Ot N18.9 CHRONIC KIDNEY DISEASE, UNSPECIFIED 07/06/2017 SLOAN NICE MD Ot Z79.01 GRAIN BROKER (CURRENT) USE OF ANTICOAGULANT 07/06/2017 SLOAN NICE MD Ot Z79.899 OTHER RETIREMENT (CURRENT) DRUG THERAPY 07/06/2017 SLOAN NICE MD Ot D50.9 IRON DEFICIENCY ANEMIA, UNSPECIFIED 07/06/2017 SLOAN NICE MD Ot D69.6 THROMBOCYTOPENIA, UNSPECIFIED 07/06/2017 SLOAN NICE MD Ot E78.5 HYPERLIPIDEMIA, UNSPECIFIED 07/06/2017 SLOAN NICE MD Ot I12.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 07/06/2017 SLOAN NICE MD Ot I25.10 ATHSCL HEART DISEASE OF [place] CORONARY 07/06/2017 SLOAN NICE MD Ot I48.91 UNSPECIFIED ATRIAL FIBRILLATION 07/06/2017 SLOAN NICE MD Ot N18.9 CHRONIC KIDNEY DISEASE, UNSPECIFIED 07/06/2017 SLOAN NICE MD Ot Z79.01 GRAIN BROKER (CURRENT) USE OF ANTICOAGULANT 07/06/2017 SLOAN NICE MD Ot Z79.899 OTHER GRAIN BROKER (CURRENT) DRUG THERAPY 07/16/2017 BAIMA, WILLIAMS L [employer] CR[employer] GUARD SUPERVISOR Ot D50.9 IRON DEFICIENCY ANEMIA, UNSPECIFIED 07/16/2017 BAIMA, WILLIAMS L [employer] CR[employer]ING GUARD SUPERVISOR Ot D69.6 THROMBOCYTOPENIA, UNSPECIFIED 07/16/2017 BAIMA, WILLIAMS L [employer] CR[employer] GUARD SUPERVISOR Ot E78.5 HYPERLIPIDEMIA, UNSPECIFIED 07/16/2017 BAIMA, WILLIAMS L [employer] CR[employer]ING GUARD SUPERVISOR Ot I12.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 07/16/2017 BAIMA, WILLIAMS L [employer] CROSSING GUARD SUPERVISOR Ot I25.10 ATHSCL HEART DISEASE OF [place] CORONARY 07/16/2017 BAIMA, WILLIAMS L [employer] CR[employer]ING GUARD SUPERVISOR Ot I48.91 UNSPECIFIED ATRIAL FIBRILLATION 07/16/2017 BAIMA, WILLIAMS L [employer] CR[employer]ING GUARD SUPERVISOR Ot N18.9 CHRONIC KIDNEY DISEASE, UNSPECIFIED 07/16/2017 BAIMA, WILLIAMS L [employer] CR[employer] GUARD SUPERVISOR Ot Z79.01 GRAIN BROKER (CURRENT) USE OF ANTICOAGULANT 07/16/2017 BAIMA, WILLIAMS L [employer] CR[employer]ING GUARD SUPERVISOR Ot Z79.899 OTHER RETIREMENT (CURRENT) DRUG THERAPY 07/17/2017 BAIMA, WILLIAMS L [employer] CR[employer] GUARD SUPERVISOR Ot I48.91 UNSPECIFIED ATRIAL FIBRILLATION 07/17/2017 BAIMA WILLIAMS L [employer] CR[employer]ING GUARD SUPERVISOR Ot Z79.01 RETIREMENT (CURRENT) USE OF ANTICOAGULANT 07/21/2017 BAIMA WILLIAMS L [employer] CROSSING GUARD SUPERVISOR Ot I48.0 PAROXYSMAL ATRIAL FIBRILLATION 07/21/2017 BAIMA WILLIAMS L [employer] CR[employer]ING GUARD SUPERVISOR Ot Z79.01 RETIREMENT (CURRENT) USE OF ANTICOAGULANT 07/27/2017 SLOAN NICE MD Ot D50.9 IRON DEFICIENCY ANEMIA, UNSPECIFIED 07/27/2017 SLOAN NICE MD Ot D69.6 THROMBOCYTOPENIA, UNSPECIFIED 07/27/2017 SLOAN NICE MD Ot E78.5 HYPERLIPIDEMIA, UNSPECIFIED 07/27/2017 SLOAN NICE MD Ot I12.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 07/27/2017 SLOAN NICE MD Ot I25.10 ATHSCL HEART DISEASE OF [place] CORONARY 07/27/2017 SLOAN NICE MD Ot I48.91 UNSPECIFIED ATRIAL FIBRILLATION 07/27/2017 SLOAN NICE MD Ot N18.9 CHRONIC KIDNEY DISEASE, UNSPECIFIED 07/27/2017 SLOAN NICE MD Ot Z79.01 GRAIN BROKER (CURRENT) USE OF ANTICOAGULANT 07/27/2017 SLOAN NICE MD Ot Z79.899 OTHER RETIREMENT (CURRENT) DRUG THERAPY 08/04/2017 DORISMA WILLIAMS L [employer] CR[employer] GUARD SUPERVISOR Ot I48.91 UNSPECIFIED ATRIAL FIBRILLATION 08/04/2017 BAIMA WILLIAMS L [employer] CR[employer]ING GUARD SUPERVISOR Ot Z79.01 RETIREMENT (CURRENT) USE OF ANTICOAGULANT 09/13/2017 DORISMAWILLIAMS L SCHOOL CROSSING GUARD SUPERVISOR Ot I48.91 UNSPECIFIED ATRIAL FIBRILLATION 09/13/2017 BAIMA WILLIAMS L [employer] CR[employer]ING GUARD SUPERVISOR Ot Z79.01 GRAIN BROKER (CURRENT) USE OF ANTICOAGULANT 09/16/2017 SLOAN NICE MD Ot D50.9 IRON DEFICIENCY ANEMIA, UNSPECIFIED 09/16/2017 SLOAN NICE MD Ot D69.6 THROMBOCYTOPENIA, UNSPECIFIED 09/16/2017 SLOAN NICE MD Ot E78.5 HYPERLIPIDEMIA, UNSPECIFIED 09/16/2017 SLOAN NICE MD Ot I12.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 09/16/2017 SLOAN NICE MD Ot I25.10 ATHSCL HEART DISEASE OF [place] CORONARY 09/16/2017 SLOAN NICE MD Ot I48.91 UNSPECIFIED ATRIAL FIBRILLATION 09/16/2017 SLOAN NICE MD Ot N18.9 CHRONIC KIDNEY DISEASE, UNSPECIFIED 09/16/2017 SLOAN NICE MD Ot Z79.01 GRAIN BROKER (CURRENT) USE OF ANTICOAGULANT 09/16/2017 SLOAN NICE MD Ot Z79.899 OTHER GRAIN BROKER (CURRENT) DRUG THERAPY 09/17/2017 SLOAN NICE MD Ot D50.9 IRON DEFICIENCY ANEMIA, UNSPECIFIED 09/17/2017 SLOAN NICE MD Ot D69.6 THROMBOCYTOPENIA, UNSPECIFIED 09/17/2017 SLOAN NICE MD Ot E78.5 HYPERLIPIDEMIA, UNSPECIFIED 09/17/2017 SLOAN NICE MD Ot I12.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 09/17/2017 SLOAN NICE MD Ot I25.10 ATHSCL HEART DISEASE OF [place] CORONARY 09/17/2017 SLOAN NICE MD Ot I48.91 UNSPECIFIED ATRIAL FIBRILLATION 09/17/2017 SLOAN NICE MD Ot N18.9 CHRONIC KIDNEY DISEASE, UNSPECIFIED 09/17/2017 SLOAN NICE MD Ot Z79.01 GRAIN BROKER (CURRENT) USE OF ANTICOAGULANT 09/17/2017 SLOAN NICE MD Ot Z79.899 OTHER GRAIN BROKER (CURRENT) DRUG THERAPY 09/19/2017 BAIMA, WILLIAMS L [employer] CR[employer] GUARD SUPERVISOR Ot I48.91 UNSPECIFIED ATRIAL FIBRILLATION 09/19/2017 BAIMA, WILLIAMS L [employer] CR[employer] GUARD SUPERVISOR Ot Z79.01 GRAIN BROKER (CURRENT) USE OF ANTICOAGULANT 10/08/2017 BAIMA, WILLIAMS L [employer] CR[employer] GUARD SUPERVISOR Ot I48.91 UNSPECIFIED ATRIAL FIBRILLATION 10/08/2017 BAIMA, WILLIAMS L [employer] CR[employer] GUARD SUPERVISOR Ot Z79.01 GRAIN BROKER (CURRENT) USE OF ANTICOAGULANT 10/08/2017 BAIMA, WILLIAMS L [employer] CR[employer] GUARD SUPERVISOR Ot I48.91 UNSPECIFIED ATRIAL FIBRILLATION 10/08/2017 BAIMA, WILLIAMS L [employer] GUARD SUPERVISOR Ot Z79.01 RETIREMENT (CURRENT) USE OF ANTICOAGULANT 10/13/2017 BAIMA, WILLIAMS L [employer] GUARD SUPERVISOR Ot I48.91 UNSPECIFIED ATRIAL FIBRILLATION 10/13/2017 BAIMA, WILLIAMS L [employer] CR[employer] GUARD SUPERVISOR Ot Z79.01 GRAIN BROKER (CURRENT) USE OF ANTICOAGULANT 11/02/2017 BAIMA, WILLIAMS L [employer] CR[employer] GUARD SUPERVISOR Ot I48.91 UNSPECIFIED ATRIAL FIBRILLATION 11/02/2017 BAIMA, WILLIAMS L [employer] CR[employer] GUARD SUPERVISOR Ot Z79.01 RETIREMENT (CURRENT) USE OF ANTICOAGULANT 11/16/2017 CHAR SHIRLEY FACC, ALI FACP CCDS Ot E66.8 OTHER OBESITY 11/16/2017 CHAR SHIRLEY FACC, ALI FACP CCDS Ot E78.5 HYPERLIPIDEMIA, UNSPECIFIED 11/16/2017 CHAR SHIRLEY FACC, ALI FACP CCDS Ot I12.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 11/16/2017 CHAR SHIRLEY FACC, ALI FACP CCDS Ot I25.10 ATHSCL HEART DISEASE OF [place] CORONARY 11/16/2017 CHAR SHIRLEY FACC, ALI FACP CCDS Ot I48.0 PAROXYSMAL ATRIAL FIBRILLATION 11/16/2017 CHAR SHIRLEY FACC, ALI FACP CCDS Ot I65.29 OCCLUSION AND STENOSIS OF UNSPECIFIED CA 11/16/2017 CHAR SHIRLEY FACC, ALI FACP CCDS Ot N18.2 CHRONIC KIDNEY DISEASE, STAGE 2 (MILD) 11/16/2017 CHAR SHIRLEY FACC, ALI FACP CCDS Ot Z79.01 RETIREMENT (CURRENT) USE OF ANTICOAGULANT 11/16/2017 CHAR SHIRLEY [...] CCDS Ot I25.10 ATHSCL HEART DISEASE OF [place] CORONARY 11/16/2017 CHAR SHIRLEY FACC, ALI FACP CCDS Ot I48.0 PAROXYSMAL ATRIAL FIBRILLATION 11/16/2017 CHAR SHIRLEY FACC, ALI FACP CCDS Ot I65.29 OCCLUSION AND STENOSIS OF UNSPECIFIED CA 11/16/2017 CHAR SHIRLEY FACC, ALI FACP CCDS Ot N18.2 CHRONIC KIDNEY DISEASE, STAGE 2 (MILD) 11/16/2017 CHAR SHIRLEY FACC, ALI FACP CCDS Ot Z79.01 RETIREMENT (CURRENT) USE OF ANTICOAGULANT 11/16/2017 CHAR SHIRLEY [...] SHIRLEY FACC, ALI FACP CCDS Ot Z79.01 RETIREMENT (CURRENT) USE OF ANTICOAGULANT 11/25/2017 CHAR SHIRLEY FACC, ALI FACP CCDS Ot I12.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 11/25/2017 CHAR SHIRLEY FACC, ALI FACP CCDS Ot I48.0 PAROXYSMAL ATRIAL FIBRILLATION 11/25/2017 CHAR SHIRLEY FACC, ALI FACP CCDS Ot N18.2 CHRONIC KIDNEY DISEASE, STAGE 2 (MILD) 11/25/2017 CHRA SHIRLEY FACC, ALI FACP CCDS Ot Z79.01 RETIREMENT (CURRENT) USE OF ANTICOAGULANT 12/03/2017 CHAR BURGERC, ALI FACP CCDS Ot E66.8 OTHER OBESITY 12/03/2017 CHAR SHIRLEY FACC, ALI FACP CCDS Ot E78.5 HYPERLIPIDEMIA, UNSPECIFIED 12/03/2017 CHAR BURGERC, ALI FACP CCDS Ot I12.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 12/03/2017 CHAR BURGERC, ALI FACP CCDS Ot I25.10 ATHSCL HEART DISEASE OF [place] CORONARY 12/03/2017 CHAR SHIRLEY FACC, ALI FACP CCDS Ot I48.0 PAROXYSMAL ATRIAL FIBRILLATION 12/03/2017 CHAR BURGERC, ALI FACP CCDS Ot I65.29 OCCLUSION AND STENOSIS OF UNSPECIFIED CA 12/03/2017 CHAR BURGERC, ALI FACP CCDS Ot N18.2 CHRONIC KIDNEY DISEASE, STAGE 2 (MILD) 12/03/2017 CHAR SHIRLEY FACC, ALI FACP CCDS Ot Z79.01 RETIREMENT (CURRENT) USE OF ANTICOAGULANT 12/03/2017 CHAR BURGERC, ALI FACP CCDS Ot Z95.0 PRESENCE OF CARDIAC PACEMAKER 12/11/2017 CHAR BURGERC, ALI FACP CCDS Ot I48.91 UNSPECIFIED ATRIAL FIBRILLATION 12/11/2017 CHAR BURGERC, ALI FACP CCDS Ot Z79.01 GRAIN BROKER (CURRENT) USE OF ANTICOAGULANT 12/13/2017 BAIMA, WILLIAMS L [employer] GUARD SUPERVISOR Ot E66.8 OTHER OBESITY 12/13/2017 BAIWILLIAMS CANO L [employer]CHO[employer] CROSSING GUARD SUPERVISOR Ot E78.5 HYPERLIPIDEMIA, UNSPECIFIED 12/13/2017 BAIWILLIAMS CANO [employer] CR[employer]ING GUARD SUPERVISOR Ot I12.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 12/13/2017 WILLIAMS CHAVEZ L [employer]CHO[employer] CROSSING GUARD SUPERVISOR Ot I25.10 ATHSCL HEART DISEASE OF [place] CORONARY 12/13/2017 WILLIAMS CHAVEZ L [employer] CROSSING GUARD SUPERVISOR Ot I48.0 PAROXYSMAL ATRIAL FIBRILLATION 12/13/2017 BAIMAWILLIAMS L SCHOOL CROSSING GUARD SUPERVISOR Ot I48.91 UNSPECIFIED ATRIAL FIBRILLATION 12/13/2017 WILLIAMS CHAVEZ L [employer] CR[employer]ING GUARD SUPERVISOR Ot I65.29 OCCLUSION AND STENOSIS OF UNSPECIFIED CA 12/13/2017 WILLIAMS CHAVEZ [employer] CROSSING GUARD SUPERVISOR Ot N18.2 CHRONIC KIDNEY DISEASE, STAGE 2 (MILD) 12/13/2017 WILLIAMS CHAVEZ L [employer] CROSSING GUARD SUPERVISOR Ot Z79.01 RETIREMENT (CURRENT) USE OF ANTICOAGULANT 12/13/2017 DORISWILLIAMS CAN[employer] CR[employer]ING GUARD SUPERVISOR Ot Z95.0 PRESENCE OF CARDIAC PACEMAKER 12/14/2017 DORISWILLIAMS CANO [employer] CROSSING GUARD SUPERVISOR Ot I48.91 UNSPECIFIED ATRIAL FIBRILLATION 12/14/2017 BAIWILLIAMS CANO [employer] CROSSING GUARD SUPERVISOR Ot Z79.01 GRAIN BROKER (CURRENT) USE OF ANTICOAGULANT 12/15/2017 WILLIAMS CHAVEZ L [employer] CR[employer]ING GUARD SUPERVISOR Ot I48.91 UNSPECIFIED ATRIAL FIBRILLATION 12/15/2017 BAIMAJEREMIAHWILLIAMS L SCHOOL CROSSING GUARD SUPERVISOR Ot Z79.01 GRAIN BROKER (CURRENT) USE OF ANTICOAGULANT 12/18/2017 CHAR SHIRLEY FACC, AGNIESZKA FACP CCDS Ot I12.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 12/18/2017 CHAR SHIRLEY FACC, AGNIESZKA FACP CCDS Ot I48.0 PAROXYSMAL ATRIAL FIBRILLATION 12/18/2017 CHAR SHIRLEY FACC, ALI FACP CCDS Ot N18.2 CHRONIC KIDNEY DISEASE, STAGE 2 (MILD) 12/18/2017 CHAR SHIRLEY FACC, ALI FACP CCDS Ot Z79.01 RETIREMENT (CURRENT) USE OF ANTICOAGULANT 12/19/2017 DORISJEREMIAH CANOHER L [employer]CHO[employer] CROSSING GUARD SUPERVISOR Ot I48.91 UNSPECIFIED ATRIAL FIBRILLATION 12/19/2017 BAIMA, WILLIAMS L [employer] CR[employer]ING GUARD SUPERVISOR Ot Z79.01 GRAIN BROKER (CURRENT) USE OF ANTICOAGULANT 12/30/2017 MOI SHIRLYE, JAZIEL Curtis Ot Z29.8 ENCOUNTER FOR OTHER SPECIFIED PROPHYLACT 12/31/2017 CHAR SHIRLEY FACC, AGNIESZKA BURGERP CCDS Ot I48.91 UNSPECIFIED ATRIAL FIBRILLATION 12/31/2017 CHAR SHIRLEY FACC, AGNIESZKA BURGERP CCDS Ot Z79.01 GRAIN BROKER (CURRENT) USE OF ANTICOAGULANT 01/19/2018 BAIMA, WILLIASM L [employer] CR[employer]ING GUARD SUPERVISOR Ot I48.91 UNSPECIFIED ATRIAL FIBRILLATION 01/19/2018 BAIMA, WILLIAMS L [employer] CR[employer]ING GUARD SUPERVISOR Ot Z51.81 ENCOUNTER FOR THERAPEUTIC DRUG LEVEL MON 01/19/2018 BAIMA, WILLIAMS L [employer] CR[employer]ING GUARD SUPERVISOR Ot Z79.01 GRAIN BROKER (CURRENT) USE OF ANTICOAGULANT 01/31/2018 MOI SHIRLEY JAZIEL R Ot Z29.8 ENCOUNTER FOR OTHER SPECIFIED PROPHYLACT 03/03/2018 MOI SHIRLEY JAZIEL R Ot Z29.8 ENCOUNTER FOR OTHER SPECIFIED PROPHYLACT 03/14/2018 BAIMA, WILLIAMS L [employer] CR[employer]ING GUARD SUPERVISOR Ot I48.91 UNSPECIFIED ATRIAL FIBRILLATION 03/14/2018 BAIMA, WILLIAMS [employer] CR[employer] GUARD SUPERVISOR Ot Z51.81 ENCOUNTER FOR THERAPEUTIC DRUG LEVEL MON 03/14/2018 BAIMA WILLIAMS L [employer] CR[employer]ING GUARD SUPERVISOR Ot Z79.01 RETIREMENT (CURRENT) USE OF ANTICOAGULANT 03/16/2018 BAIMA, WILLIASM L [employer]CHO[employer] CR[employer]ING GUARD SUPERVISOR Ot I48.91 UNSPECIFIED ATRIAL FIBRILLATION 03/16/2018 BAIMA, WILLIAMS L [employer] CR[employer]ING GUARD SUPERVISOR Ot Z51.81 ENCOUNTER FOR THERAPEUTIC DRUG LEVEL MON 03/16/2018 BAIMA, WILLIAMS L [employer] CR[employer]ING GUARD SUPERVISOR Ot Z79.01 GRAIN BROKER (CURRENT) USE OF ANTICOAGULANT 04/04/2018 MOI SHIRLEY JAZIEL R Ot Z29.8 ENCOUNTER FOR OTHER SPECIFIED PROPHYLACT 05/05/2018 MOI SHIRLEY JAZIEL R Ot Z29.8 ENCOUNTER FOR OTHER SPECIFIED PROPHYLACT 05/06/2018 MOI SHIRLEY JAZIEL R Ot Z29.8 ENCOUNTER FOR OTHER SPECIFIED PROPHYLACT 05/20/2018 BAIMA, WILLIAMS [employer] CR[employer] GUARD SUPERVISOR Ot I48.91 UNSPECIFIED ATRIAL FIBRILLATION 05/20/2018 BAIMA WILLIAMS L [employer] CR[employer]ING GUARD SUPERVISOR Ot Z51.81 ENCOUNTER FOR THERAPEUTIC DRUG LEVEL MON 05/20/2018 BAIMA, WILLIAMS L [employer] CR[employer] GUARD SUPERVISOR Ot Z79.01 GRAIN BROKER (CURRENT) USE OF ANTICOAGULANT 05/27/2018 CHAR SHIRLEY FACC, AGNIESZKA FRIEND CCDS Ot I10 ESSENTIAL (PRIMARY) HYPERTENSION 05/27/2018 CHAR SHIRLEY FACC, ALI FACP CCDS Ot I25.10 ATHSCL HEART DISEASE OF [place] CORONARY 05/27/2018 CHAR SHIRLEY FACC, ALI FACP CCDS Ot I48.2 CHRONIC ATRIAL FIBRILLATION 05/27/2018 CHAR SHIRLEY FACC, ALI FACP CCDS Ot 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 AN 05/27/2018 CHAR SHIRLEY FACC, ALI FACP CCDS Ot R06.02 SHORTNESS OF BREATH 05/27/2018 CHAR SHIRLEY FACC, ALI FACP CCDS Ot Z79.01 GRAIN BROKER (CURRENT) USE OF ANTICOAGULANT 06/09/2018 MOI SHIRLEY, [...] OTH MED,LT,CURRENT USE 06/10/2018 BAIMA, WILLIAMS L [employer] GUARD SUPERVISOR Ot 790.6 ABN BLOOD CHEMISTRY NEC 06/10/2018 BAIMA, WILLIAMS L [employer] GUARD SUPERVISOR Ot 790.6 ABN BLOOD CHEMISTRY NEC 06/10/2018 BAIMA, WILLIAMS L [employer] CR[employer]ING GUARD SUPERVISOR Ot 428.0 CONGESTIVE HEART FAILURE NOS 06/10/2018 BAIMA, WILLIAMS L [employer] CR[employer]ING GUARD SUPERVISOR Ot 428.0 CONGESTIVE HEART FAILURE NOS 06/10/2018 CHAR SHIRLEY FACC, ALI FACP CCDS Ot 414.00 CORON ATHEROSCLER NOS TYPE VESSEL, NATIV 06/10/2018 CHAR SHIRLEY FACC, ALI FACP CCDS Ot 429.3 CARDIOMEGALY 06/10/2018 CHAR SHIRLEY FACC, ALI FACP CCDS Ot 786.59 CHEST PAIN NEC 06/10/2018 CHAR SHIRLEY FACC, ALI FACP CCDS Ot 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 06/10/2018 BAIMA, WILLIAMS L [employer] GUARD SUPERVISOR Ot 272.4 HYPERLIPIDEMIA NEC/NOS 06/10/2018 Ot 272.0 [...] V58.61 ANTICOAGULANTS,LT,CURRENT USE 06/10/2018 BAIMA, WILLIAMS L [employer] GUARD SUPERVISOR Ot 272.4 HYPERLIPIDEMIA NEC/NOS 06/10/2018 BAIMA, WILLIAMS L [employer] CR[employer]ING GUARD SUPERVISOR Ot 401.9 HYPERTENSION NOS 06/10/2018 BAIMA, WILLIAMS L [employer] CR[employer]ING GUARD SUPERVISOR Ot 414.00 CORON ATHEROSCLER NOS TYPE VESSEL, NATIV 06/10/2018 BAIMA, WILLIAMS L [employer] CR[employer]ING GUARD SUPERVISOR Ot 427.31 ATRIAL FIBRILLATION 06/10/2018 BAIMA, WILLIAMS L [employer] CR[employer]ING GUARD SUPERVISOR Ot 272.4 HYPERLIPIDEMIA NEC/NOS 06/10/2018 BAIMA, WILLIAMS L [employer] CR[employer]ING GUARD SUPERVISOR Ot 401.9 HYPERTENSION NOS 06/10/2018 BAIMA, WILLIAMS L [employer] CR[employer]ING GUARD SUPERVISOR Ot 414.9 CHR ISCHEMIC HRT DIS NOS 06/10/2018 BAIMA, WILLIAMS L [employer] CR[employer]ING GUARD SUPERVISOR Ot 427.31 ATRIAL FIBRILLATION 06/10/2018 MOI SHIRLEY, [...] CCDS Ot I25.10 ATHSCL HEART DISEASE OF [place] CORONARY 06/10/2018 CHAR SHIRLEY FACC, ALI FACP [...] SHIRLEY FACC, ALI FACP CCDS Ot Z79.01 GRAIN BROKER (CURRENT) USE OF ANTICOAGULANT 06/10/2018 CHAR SHIRLEY [...] SHIRLEY FACC, ALI FACP CCDS Ot Z79.01 RETIREMENT (CURRENT) USE OF ANTICOAGULANT 06/10/2018 SLOAN NICE MD Ot D50.9 IRON DEFICIENCY ANEMIA, UNSPECIFIED 06/10/2018 SLOAN NICE MD Ot D69.6 THROMBOCYTOPENIA, UNSPECIFIED 06/10/2018 SLOAN NICE MD Ot E78.5 HYPERLIPIDEMIA, UNSPECIFIED 06/10/2018 SLOAN NICE MD Ot I12.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 06/10/2018 SLOAN NICE MD Ot I25.10 ATHSCL HEART DISEASE OF [place] CORONARY 06/10/2018 SLOAN NICE MD Ot I48.91 UNSPECIFIED ATRIAL FIBRILLATION 06/10/2018 SLOAN NICE MD Ot N18.9 CHRONIC KIDNEY DISEASE, UNSPECIFIED 06/10/2018 SLOAN NICE MD Ot Z79.01 GRAIN BROKER (CURRENT) USE OF ANTICOAGULANT 06/10/2018 SLOAN NICE MD Ot Z79.899 OTHER RETIREMENT (CURRENT) DRUG THERAPY 06/10/2018 CHAR BURGERC, ALI FACP CCDS Ot E66.8 OTHER OBESITY 06/10/2018 CHAR SHIRLEY FACC, ALI FACP CCDS Ot E78.5 HYPERLIPIDEMIA, UNSPECIFIED 06/10/2018 CAHR SHIRLEY FACC, ALI FACP CCDS Ot I12.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 06/10/2018 CHAR SHIRLEY FACC, ALI FACP CCDS Ot I25.10 ATHSCL HEART DISEASE OF [place] CORONARY 06/10/2018 CHAR SHIRLEY FACC, ALI FACP CCDS Ot I48.0 PAROXYSMAL ATRIAL FIBRILLATION 06/10/2018 CHAR SHIRLEY FACC, ALI FACP CCDS Ot I65.29 OCCLUSION AND STENOSIS OF UNSPECIFIED CA 06/10/2018 CHAR SHIRLEY FACC, ALI FACP CCDS Ot N18.2 CHRONIC KIDNEY DISEASE, STAGE 2 (MILD) 06/10/2018 CHAR SHIRLEY FACC, ALI FACP CCDS Ot Z79.01 RETIREMENT (CURRENT) USE OF ANTICOAGULANT 06/10/2018 CHAR SHIRLEY [...] SHIRLEY FACC, ALI FACP CCDS Ot Z79.01 RETIREMENT (CURRENT) USE OF ANTICOAGULANT 06/10/2018 WILLIAMS CHAVEZ [employer] CR[employer] GUARD SUPERVISOR Ot I48.91 UNSPECIFIED ATRIAL FIBRILLATION 06/10/2018 WILLIAMS CHAVEZ [employer] CR[employer]ING GUARD SUPERVISOR Ot Z51.81 ENCOUNTER FOR THERAPEUTIC DRUG LEVEL MON 06/10/2018 WILLIAMS CHAVEZ [employer] CR[employer]ING GUARD SUPERVISOR Ot Z79.01 GRAIN BROKER (CURRENT) USE OF ANTICOAGULANT 06/10/2018 CHAR SHIRLEY FACC, ALI FACP CCDS Ot I10 ESSENTIAL (PRIMARY) HYPERTENSION 06/10/2018 CHAR SHIRLEY FACC, ALI FACP CCDS Ot I25.10 ATHSCL HEART DISEASE OF [place] CORONARY 06/10/2018 CHAR SHIRLEY FACC, ALI FACP CCDS Ot I48.2 CHRONIC ATRIAL FIBRILLATION 06/10/2018 CHAR SHIRLEY FACC, ALI FACP CCDS Ot 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 AN 06/10/2018 CHAR SHIRLEY FACC, ALI FACP CCDS Ot R06.02 SHORTNESS OF BREATH 06/10/2018 CHAR SHIRLEY FACC, ALI FACP CCDS Ot Z79.01 RETIREMENT (CURRENT) USE OF ANTICOAGULANT 06/14/2018 BAIWILLIAMS [employer] GUARD SUPERVISOR Ot I48.91 UNSPECIFIED ATRIAL FIBRILLATION 06/14/2018 WILLIAMS CHAVEZ [employer] CR[employer]ING GUARD SUPERVISOR Ot Z51.81 ENCOUNTER FOR THERAPEUTIC DRUG LEVEL MON 06/14/2018 WILLIAMS CHAVEZ S[employer] CROSSING GUARD SUPERVISOR Ot Z79.01 RETIREMENT (CURRENT) USE OF ANTICOAGULANT 06/14/2018 CHAR BURGERC, ALI FACP CCDS Ot E87.5 HYPERKALEMIA 06/14/2018 CHAR BURGERC, ALI FACP CCDS Ot I08.3 COMB RHEUMATIC DISORD OF MITRAL, AORTIC 06/14/2018 CHAR SHIRLEY FACC, ALI FACP CCDS Ot I10 ESSENTIAL (PRIMARY) HYPERTENSION 06/14/2018 CHAR BURGERC, ALI FACP CCDS Ot I25.10 ATHSCL HEART DISEASE OF [place] CORONARY 06/14/2018 CHAR SHIRLEY FACC, ALI FACP CCDS Ot I48.2 CHRONIC ATRIAL FIBRILLATION 06/14/2018 CHAR SHIRLEY FACC, ALI FACP CCDS Ot R06.02 SHORTNESS OF BREATH 06/14/2018 CHAR SHIRLEY FACC, ALI FACP CCDS Ot Z79.01 RETIREMENT (CURRENT) USE OF ANTICOAGULANT 06/15/2018 CHAR SHIRLEY FACC, ALI FACP CCDS Ot I10 ESSENTIAL (PRIMARY) HYPERTENSION 06/15/2018 CHAR SHIRLEY FACC, ALI FACP CCDS Ot I25.10 ATHSCL HEART DISEASE OF [place] CORONARY 06/15/2018 CHAR SHIRLEY FACC, ALI FACP CCDS Ot I48.2 CHRONIC ATRIAL FIBRILLATION 06/15/2018 CHAR SHIRLEY FACC, ALI FACP CCDS Ot 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 AN 06/15/2018 CHAR SHIRLEY [facility] CCDS Ot R06.02 SHORTNESS OF BREATH 06/15/2018 CHAR SHIRLEY [facility], [facility] CCDS Ot Z79.01 GRAIN BROKER (CURRENT) USE OF ANTICOAGULANT 06/15/2018 HUMA SHELDON [...] STEPS, 06/15/2018 HUMA SHELDON MD Ot Y92.009 [facility] PL[address] IN [facility] NON-INSTIT[facility] (PRIVATE 06/15/2018 HUMA SHELDON MD Ot Z23 ENCOUNTER FOR IMMUNIZATION 06/15/2018 HUMA SHELDON MD Ot Z79.01 GRAIN BROKER (CURRENT) USE OF ANTICOAGULANT 06/15/2018 HUMA SHELDON MD Ot Z79.82 GRAIN BROKER (CURRENT) USE OF ASPIRIN 06/15/2018 HUMA SHELDON [...] STEPS, 06/17/2018 HUMA SHELDON MD Ot Y92.009 [facility] PL[facility] IN [facility] NON[facility] (PRIVATE 06/17/2018 HUMA SHELDON MD Ot Z23 ENCOUNTER FOR IMMUNIZATION 06/17/2018 HUMA SHELDON MD Ot Z79.01 RETIREMENT (CURRENT) USE OF ANTICOAGULANT 06/17/2018 HUMA SHELDON MD Ot Z79.82 GRAIN BROKER (CURRENT) USE OF ASPIRIN 06/17/2018 HUMA SHELDON [...] STEPS, 06/21/2018 HUMA SHELDON MD, Ot Y92.009 [facility] PL[facility] IN [facility] NON[facility] (PRIVATE 06/21/2018 HUMA SHELDON MD, Ot Z23 ENCOUNTER FOR IMMUNIZATION 06/21/2018 HUMA SHELDON MD, Ot Z79.01 GRAIN BROKER (CURRENT) USE OF ANTICOAGULANT 06/21/2018 HUMA SHELDON MD, Ot Z79.82 RETIREMENT (CURRENT) USE OF ASPIRIN 06/21/2018 HUMA SHELDON [...] CCDS Ot I25.10 ATHSCL HEART DISEASE OF [place] CORONARY 06/30/2018 CHAR SHIRLEY FACC, AGNIESZKA FACP CCDS Ot I48.2 CHRONIC ATRIAL FIBRILLATION 06/30/2018 CHAR SHIRLEY FACC, ALI FACP CCDS Ot R06.02 SHORTNESS OF BREATH 06/30/2018 CHAR SHIRLEY FACC, ALI FACP CCDS Ot Z79.01 RETIREMENT (CURRENT) USE OF ANTICOAGULANT 07/11/2018 SEGLIE MD, [...] MD Ot I25.10 ATHSCL HEART DISEASE OF [place] CORONARY 08/27/2018 SLOAN NICE MD Ot I48.91 UNSPECIFIED ATRIAL FIBRILLATION 08/27/2018 SLOAN NICE MD Ot N18.9 CHRONIC KIDNEY DISEASE, UNSPECIFIED 08/27/2018 SLOAN NICE MD Ot Z79.01 RETIREMENT (CURRENT) USE OF ANTICOAGULANT 08/27/2018 SLOAN NICE MD Ot Z79.899 OTHER GRAIN BROKER (CURRENT) DRUG THERAPY 08/27/2018 ML GANNON APRN Ot R50.9 FEVER, UNSPECIFIED 09/12/2018 FATIMAH PRATER MDYD R Ot Z29.8 ENCOUNTER FOR OTHER SPECIFIED PROPHYLACT 09/13/2018 FATIMAH PRATER MDYD R Ot Z29.8 ENCOUNTER FOR OTHER SPECIFIED PROPHYLACT 09/17/2018 WILLIAMS CHAVEZ [employer] SUPERVISOR Ot I48.91 UNSPECIFIED ATRIAL FIBRILLATION 09/17/2018 WILLIAMS [employer]Z [employer] SUPERVISOR Ot Z51.81 ENCOUNTER FOR THERAPEUTIC DRUG LEVEL MON 09/17/2018 BAIMAWILLIAMS [employer] SUPERVISOR Ot Z79.01 GRAIN BROKER (CURRENT) USE OF ANTICOAGULANT 09/17/2018 BAIMAWILLIAMS [employer] SUPERVISOR Ot I48.91 UNSPECIFIED ATRIAL FIBRILLATION 09/17/2018 BAIMAWILLIAMS [employer] SUPERVISOR Ot Z51.81 ENCOUNTER FOR THERAPEUTIC DRUG LEVEL MON 09/17/2018 DORISMAWILLIAMS [employer]CHOOL CR[employer]ING GUARD SUPERVISOR Ot Z79.01 RETIREMENT (CURRENT) USE OF ANTICOAGULANT 09/22/2018 AMADOU, MICHELLE R LABORATORY APPARATUS GLASS BLOWER Ot G47.33 OBSTRUCTIVE SLEEP APNEA (ADULT) (PEDIATR 09/28/2018 WILLIAMS [employer]Z [employer] SUPERVISOR Ot I12.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 09/28/2018 WILLIAMS CHAVEZ [employer] SUPERVISOR Ot N18.9 CHRONIC KIDNEY DISEASE, UNSPECIFIED 09/29/2018 MICHELLE TOBAR LABORAT[facility] APPARATUS GLASS BLOWER Ot G47.33 OBSTRUCTIVE SLEEP APNEA (ADULT) (PEDIATR 09/29/2018 MICHELLE TOBAR LABORATORY APPARATUS GLASS BLOWER Ot G47.33 OBSTRUCTIVE SLEEP APNEA (ADULT) (PEDIATR 09/30/2018 AMADOUMICHELLE LABORATORY APPARATUS GLASS BLOWER Ot G47.33 OBSTRUCTIVE SLEEP APNEA (ADULT) (PEDIATR 09/30/2018 MICHELLE TOBAR LABORAT[facility] APPARATUS [place]ASS BLOWER Ot G47.33 OBSTRUCTIVE SLEEP APNEA (ADULT) (PEDIATR 10/05/2018 JAGDEEPML MENJIVAR LABORATORY APPARATUS GLASS BLOWER Ot R50.9 FEVER, UNSPECIFIED 10/06/2018 ML GANNON LABORATORY APPARATUS GLASS BLOWER Ot R50.9 FEVER, UNSPECIFIED 10/07/2018 SLOAN NICE MD Ot D50.9 IRON DEFICIENCY ANEMIA, UNSPECIFIED 10/07/2018 SLOAN NICE MD Ot D69.6 THROMBOCYTOPENIA, UNSPECIFIED 10/07/2018 SLOAN NICE MD Ot E78.5 HYPERLIPIDEMIA, UNSPECIFIED 10/07/2018 SLOAN NICE MD Ot I12.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 10/07/2018 SLOAN NICE MD Ot I25.10 ATHSCL HEART DISEASE OF [place] CORONARY 10/07/2018 SLOAN NICE MD Ot I48.91 UNSPECIFIED ATRIAL FIBRILLATION 10/07/2018 SLOAN NICE MD Ot N18.9 CHRONIC KIDNEY DISEASE, UNSPECIFIED 10/07/2018 SLOAN NICE MD Ot Z79.01 RETIREMENT (CURRENT) USE OF ANTICOAGULANT 10/07/2018 SLOAN NICE MD Ot Z79.899 OTHER RETIREMENT (CURRENT) DRUG THERAPY 10/07/2018 WILLIAMS CHAVEZP Ot I48.91 UNSPECIFIED ATRIAL FIBRILLATION 10/07/2018 WILLIAMS CHAVEZP Ot Z51.81 ENCOUNTER FOR THERAPEUTIC DRUG LEVEL [facility] 10/07/2018 WILLIAMS CHAVEZP Ot Z79.01 RETIREMENT (CURRENT) USE OF ANTICOAGULANT 10/08/2018 SLOAN NICE MD Ot D50.9 IRON DEFICIENCY ANEMIA, UNSPECIFIED 10/08/2018 SLOAN NICE MD Ot D69.6 THROMBOCYTOPENIA, UNSPECIFIED 10/08/2018 TEX SHIRLEY, SLOAN Ot E78.5 HYPERLIPIDEMIA, UNSPECIFIED 10/08/2018 TEX SHIRLEY, SLOAN Ot I12.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 10/08/2018 SLOAN NICE MD Ot I25.10 ATHSCL HEART DISEASE OF [place] CORONARY 10/08/2018 SLOAN NICE MD Ot I48.91 UNSPECIFIED ATRIAL FIBRILLATION 10/08/2018 SLOAN NICE MD Ot N18.9 CHRONIC KIDNEY DISEASE, UNSPECIFIED 10/08/2018 SLOAN NICE MD Ot Z79.01 GRAIN BROKER (CURRENT) USE OF ANTICOAGULANT 10/08/2018 SLOAN NICE MD Ot Z79.899 OTHER GRAIN BROKER (CURRENT) DRUG THERAPY 10/13/2018 JAZIEL PRATER MD R Ot Z29.8 ENCOUNTER FOR OTHER SPECIFIED PROPHYLACT 10/20/2018 WILLIAMS CHAVEZ L [employer] SUPERVISOR Ot I12.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 10/20/2018 BAIWILLIAMS CANO L [employer] SUPERVISOR Ot N18.9 CHRONIC KIDNEY DISEASE, UNSPECIFIED 10/22/2018 BAIMAJEREMIAHWILLIAMS L [employer] SUPERVISOR Ot I48.91 UNSPECIFIED ATRIAL FIBRILLATION 10/22/2018 BAIMAWILLIAMS L [employer] SUPERVISOR Ot Z51.81 ENCOUNTER FOR THERAPEUTIC DRUG LEVEL MON 10/22/2018 WILLIAMS CHAVEZ L [employer] SUPERVISOR Ot Z79.01 GRAIN BROKER (CURRENT) USE OF ANTICOAGULANT 10/27/2018 WILLIAMS CHAVEZ L [employer] SUPERVISOR Ot I48.91 UNSPECIFIED ATRIAL FIBRILLATION 10/27/2018 BAIMAWILLIAMS L [employer] SUPERVISOR Ot Z51.81 ENCOUNTER FOR THERAPEUTIC DRUG LEVEL MON 10/27/2018 BAIMAWILLIAMS L [employer] SUPERVISOR Ot Z79.01 RETIREMENT (CURRENT) USE OF ANTICOAGULANT 11/17/2018 JAZIEL PRATER MD R Ot Z29.8 ENCOUNTER FOR OTHER SPECIFIED PROPHYLACT 11/18/2018 JAZIEL PRATER MD R Ot Z29.8 ENCOUNTER FOR OTHER SPECIFIED PROPHYLACT 12/16/2018 BAIMAWILLIAMS L [employer] SUPERVISOR Ot I48.91 UNSPECIFIED ATRIAL FIBRILLATION 12/16/2018 WILLIAMS CHAVEZ L [employer] SUPERVISOR Ot Z51.81 ENCOUNTER FOR THERAPEUTIC DRUG LEVEL MON 12/16/2018 DORISMAWILLIAMS L [employer] SUPERVISOR Ot Z79.01 RETIREMENT (CURRENT) USE OF ANTICOAGULANT 12/17/2018 BAIMA, WILLIAMS L [employer] SUPERVISOR Ot I48.91 UNSPECIFIED ATRIAL FIBRILLATION 12/17/2018 DORISMA, WILLIAMS L [employer] SUPERVISOR Ot Z51.81 ENCOUNTER FOR THERAPEUTIC DRUG LEVEL MON 12/17/2018 DORISMA WILLIAMS L [employer] SUPERVISOR Ot Z79.01 RETIREMENT (CURRENT) USE OF ANTICOAGULANT 12/19/2018 MOI SHIRLEY, JAZIEL R Ot Z29.8 ENCOUNTER FOR OTHER SPECIFIED PROPHYLACT 12/21/2018 MOI SHIRLEY, JAZIEL R Ot Z29.8 ENCOUNTER FOR OTHER SPECIFIED PROPHYLACT 01/07/2019 DORISMA WILLIAMS L [employer] SUPERVISOR Ot I48.91 UNSPECIFIED ATRIAL FIBRILLATION 01/07/2019 DORISMA, WILLIAMS L [employer] SUPERVISOR Ot Z51.81 ENCOUNTER FOR THERAPEUTIC DRUG LEVEL MON 01/07/2019 SCOTT WILLIAMS L [employer] SUPERVISOR Ot Z79.01 GRAIN BROKER (CURRENT) USE OF ANTICOAGULANT 01/10/2019 Ot 272.0 [...] V58.61 ANTICOAGULANTS,LT,CURRENT USE 01/10/2019 BAIMA, WILLIAMS L [employer] SUPERVISOR Ot 272.4 HYPERLIPIDEMIA NEC/NOS 01/10/2019 BAIMA, WILLIAMS L [employer] SUPERVISOR Ot 401.9 HYPERTENSION NOS 01/10/2019 BAIMA, WILLIAMS L [employer] SUPERVISOR Ot 414.00 CORON ATHEROSCLER NOS TYPE VESSEL, NATIV 01/10/2019 BAIMA, WILLIAMS L [employer] SUPERVISOR Ot 427.31 ATRIAL FIBRILLATION 01/10/2019 BAIMA, WILLIAMS L [employer] SUPERVISOR Ot 272.4 HYPERLIPIDEMIA NEC/NOS 01/10/2019 BAIMA, WILLIAMS L [employer] SUPERVISOR Ot 401.9 HYPERTENSION NOS 01/10/2019 BAIMA, WILLIAMS L [employer] SUPERVISOR Ot 414.9 CHR ISCHEMIC HRT DIS NOS 01/10/2019 BAIMA, WILLIAMS L [employer] SUPERVISOR Ot 427.31 ATRIAL FIBRILLATION 01/10/2019 MOI SHIRLEY, [...] CCDS Ot I25.10 ATHSCL HEART DISEASE OF [place] CORONARY 01/10/2019 CHAR SHIRLEY FACC, AGNIESZKA FACP CCDS Ot I34.0 NONRHEUMATIC MITRAL (VALVE) INSUFFICIENC 01/10/2019 CHAR SHIRLEY FACC, ALI FACP CCDS Ot I48.0 PAROXYSMAL ATRIAL FIBRILLATION 01/10/2019 CHAR SHIRLEY FACC, ALI FACP CCDS Ot I65.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 STENOSIS OF BILATERAL BSAS 01/10/2019 CHAR SHIRLEY FACC, ALI FACP CCDS Ot N18.2 CHRONIC KIDNEY DISEASE, STAGE 2 (MILD) 01/10/2019 CHAR SHIRLEY FACC, ALI FACP CCDS Ot I48.91 UNSPECIFIED ATRIAL FIBRILLATION 01/10/2019 CHAR SHIRLEY FACC, ALI FACP CCDS Ot Z79.01 GRAIN BROKER (CURRENT) USE OF ANTICOAGULANT 01/10/2019 CHAR SHIRLEY [...] CHAR BURGERC, ALI FACP CCDS Ot Z79.01 GRAIN BROKER (CURRENT) USE OF ANTICOAGULANT 01/10/2019 CHAR BURGERC, ALI FACP CCDS Ot E66.8 OTHER OBESITY 01/10/2019 CHAR BURGERC, ALI FACP CCDS Ot E78.5 HYPERLIPIDEMIA, UNSPECIFIED 01/10/2019 CHAR SHIRLEY FACC, ALI FACP CCDS Ot I12.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 01/10/2019 CHAR SHIRLEY FACC, ALI FACP CCDS Ot I25.10 ATHSCL HEART DISEASE OF [place] CORONARY 01/10/2019 CHAR SHIRLEY FACC, ALI FACP CCDS Ot I48.0 PAROXYSMAL ATRIAL FIBRILLATION 01/10/2019 CHAR SHIRLEY FACC, ALI FACP CCDS Ot I65.29 OCCLUSION AND STENOSIS OF UNSPECIFIED CA 01/10/2019 CHAR SHIRLEY FACC, ALI FACP CCDS Ot N18.2 CHRONIC KIDNEY DISEASE, STAGE 2 (MILD) 01/10/2019 CHAR SHIRLEY FACC, ALI FACP CCDS Ot Z79.01 RETIREMENT (CURRENT) USE OF ANTICOAGULANT 01/10/2019 CHAR SHIRLEY [...] SHIRLEY FACC, ALI FACP CCDS Ot Z79.01 RETIREMENT (CURRENT) USE OF ANTICOAGULANT 01/10/2019 CHAR SHIRLEY FACC, ALI FACP CCDS Ot I10 ESSENTIAL (PRIMARY) HYPERTENSION 01/10/2019 CHAR BURGERC, ALI FACP CCDS Ot I25.10 ATHSCL HEART DISEASE OF [place] CORONARY 01/10/2019 CHAR SHIRLEY [facility], ALI FACP CCDS Ot I48.2 CHRONIC ATRIAL FIBRILLATION 01/10/2019 CHAR SHIRLEY [facility], ALI FACP CCDS Ot 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 AN 01/10/2019 CHAR SHIRLEY FACC, ALI FACP CCDS Ot R06.02 SHORTNESS OF BREATH 01/10/2019 CHAR SHIRLEY [facility], ALI FACP CCDS Ot Z79.01 GRAIN BROKER (CURRENT) USE OF ANTICOAGULANT 01/10/2019 CHAR SHIRLEY [facility], ALI FACP CCDS Ot E87.5 HYPERKALEMIA 01/10/2019 CHAR SHIRLEY [facility], ALI FACP CCDS Ot I08.3 COMB RHEUMATIC DISORD OF MITRAL, AORTIC 01/10/2019 CHAR SHIRLEY [facility], ALI FACP CCDS Ot I10 ESSENTIAL (PRIMARY) HYPERTENSION 01/10/2019 CHAR SHIRLEY [facility], ALI FACP CCDS Ot I25.10 ATHSCL HEART DISEASE OF [place] CORONARY 01/10/2019 CHAR SHIRLEY [facility], ALI FACP CCDS Ot I48.2 CHRONIC ATRIAL FIBRILLATION 01/10/2019 CHAR SHIRLEY [facility], ALI FACP CCDS Ot R06.02 SHORTNESS OF BREATH 01/10/2019 CHAR SHIRLEY [facility], ALI FACP CCDS Ot Z79.01 GRAIN BROKER (CURRENT) USE OF ANTICOAGULANT 01/10/2019 WILLIAMS CHAVEZ [employer] SUPERVISOR Ot I12.9 HYPERTENSIVE CHRONIC KIDNEY DISEASE W [...] MD Ot I25.10 ATHSCL HEART DISEASE OF [place] CORONARY 01/10/2019 SLOAN NICE MD Ot I48.91 UNSPECIFIED ATRIAL FIBRILLATION 01/10/2019 SLOAN NICE MD Ot N18.9 CHRONIC KIDNEY DISEASE, UNSPECIFIED 01/10/2019 SLOAN NICE MD Ot Z79.01 GRAIN BROKER (CURRENT) USE OF ANTICOAGULANT 01/10/2019 TEX SHIRLEY, SLOAN Ot Z79.899 OTHER GRAIN BROKER (CURRENT) DRUG THERAPY 01/10/2019 DORISWILLIAMS CANO Anuj AUSTIN Ot Z51.81 ENCOUNTER FOR THERAPEUTIC DRUG LEVEL MON 01/10/2019 WILLIAMS CHAVEZ Ot Z79.01 GRAIN BROKER (CURRENT) USE OF ANTICOAGULANT 01/11/2019 CHARLEY SLAUGHTER MD Ot 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 CLASSD ELSWHR W 01/11/2019 CHARLEY SLAUGHTER MD Ot F41.9 ANXIETY DISORDER, UNSPECIFIED 01/11/2019 CHARLEY SLAUGHTER MD Ot 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, CHILDHOOD-ONSET TYPE 01/11/2019 CHARLEY SLAUGHTER MD Ot G20 PARKINSON'S DISEASE 01/11/2019 CHARLEY SLAUGHTER MD Ot I25.10 ATHSCL HEART DISEASE OF [place] CORONARY 01/11/2019 CHARLEY SLAUGHTER MD Ot I25.2 OLD MYOCARDIAL INFARCTION 01/11/2019 CHARLEY SLAUGHTER MD Ot I48.91 UNSPECIFIED ATRIAL FIBRILLATION 01/11/2019 CHARLEY SLAUGHTER MD, Ot N18.9 CHRONIC KIDNEY DISEASE, UNSPECIFIED 01/11/2019 CHARLEY SLAUGHTER MD Ot Z79.01 RETIREMENT (CURRENT) USE OF ANTICOAGULANT 01/11/2019 CHARLEY SLAUGHTER MD Ot Z79.82 GRAIN BROKER (CURRENT) USE OF ASPIRIN 01/11/2019 CHARLEY SLAUGHTER MD Ot Z87.01 PERSONAL HISTORY OF PNEUMONIA (RECURRENT 01/11/2019 CHARLEY SLAUGHTER MD Ot Z87.442 PERSONAL HISTORY OF URINARY CALCULI 01/11/2019 CHARLEY SLAUGHTER MD Ot Z95.1 PRESENCE OF AORTOCORONARY BYPASS GRAFT 01/12/2019 CHARLEY SLAUGHTER MD Ot 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 CLASSD ELSWHR W 01/12/2019 CHARLEY SLAUGHTER MD Ot F41.9 ANXIETY DISORDER, UNSPECIFIED 01/12/2019 CHARLEY SLAUGHTER MD, Ot 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, CHILDHOOD-ONSET TYPE 01/12/2019 CHARLEY SLAUGHTER MD, Ot G20 PARKINSON'S DISEASE 01/12/2019 CHARLEY SLAUGHTER MD, Ot I25.10 ATHSCL HEART DISEASE OF [place] CORONARY 01/12/2019 CHARLEY SLAUGHTER MD, Ot I25.2 OLD MYOCARDIAL INFARCTION 01/12/2019 CHARLEY SLAUGHTER MD, Ot I48.91 UNSPECIFIED ATRIAL FIBRILLATION 01/12/2019 CHARLEY SLAUGHTER MD, Ot N18.9 CHRONIC KIDNEY DISEASE, UNSPECIFIED 01/12/2019 CHARLEY SLAUGHTER MD, Ot Z79.01 GRAIN BROKER (CURRENT) USE OF ANTICOAGULANT 01/12/2019 CHARLEY SLAUGHTER MD, Ot Z79.82 GRAIN BROKER (CURRENT) USE OF ASPIRIN 01/12/2019 CHARLEY SLAUGHTER MD, Ot Z87.01 PERSONAL HISTORY OF PNEUMONIA (RECURRENT 01/12/2019 CHARLEY SLAUGHTER MD, Ot Z87.442 PERSONAL HISTORY OF URINARY CALCULI 01/12/2019 CHARLEY SLAUGHTER MD, Ot Z95.1 PRESENCE OF AORTOCORONARY BYPASS GRAFT 01/19/2019 MOI SHIRLEY, JAZIEL R Ot Z29.8 ENCOUNTER FOR OTHER SPECIFIED PROPHYLACT 01/21/2019 JAZIEL PRATER MD R Ot Z29.8 ENCOUNTER FOR OTHER SPECIFIED PROPHYLACT 01/26/2019 CHARLEY WOODWARD W 272.4 OTHER AND UNSPECIFIED HYPERLIPIDEMIA 01/26/2019 CHARLEY WOODWARD 287.5 THROMBOCYTOPENIA, UNSPECIFIED 01/26/2019 CHARLEY WOODWARD W 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, WITH DELIRIUM 01/26/2019 CHARLEY WOODWARD 296.34 MAJOR DEPRESSIVE DISORDER, RECURRENT EPISODE, SEVERE DEGREE, SPECIFIED WITH PSYCHOTIC BEHAVIOR 01/26/2019 CHARLEY WOODWARD 300.02 GENERALIZED ANXIETY DISORDER 01/26/2019 CHARLEY WOODWARD 332.0 PARALYSIS AGITANS 01/26/2019 CHARLEY WOODWARD 401.0 MALIGNANT ESSENTIAL HYPERTENSION 01/26/2019 TRACE CHARLEY W 427.31 ATRIAL FIBRILLATION 01/26/2019 CHRISTITAGLCHOLO CHARLEY W 530.81 ESOPHAGEAL REFLUX 01/26/2019 CHRISTIANGELKYLE CHARLEY W 593.9 UNSPECIFIED DISORDER OF KIDNEY AND URETER 01/26/2019 BILLYKYLE CHARLEY W 780.52 INSOMNIA, UNSPECIFIED 01/26/2019 TRACE CHARLEY Viktoria D69.6 THROMBOCYTOPENIA, UNSPECIFIED 01/26/2019 CHRISTITAGLCHOLO CHARLEY W E78.5 HYPERLIPIDEMIA, UNSPECIFIED 01/26/2019 CHRISTITAGLCHOLO CHARLEY W F01.51 VASCULAR DEMENTIA WITH BEHAVIORAL DISTURBANCE 01/26/2019 TRACE CHARLEY Viktoria F33.3 MAJOR DEPRESSV DISORDER, RECURRENT, SEVERE W PSYCH SYMPTOMS 01/26/2019 CHRISTIANGELKYLE CHARLEY Viktoria F41.1 GENERALIZED ANXIETY DISORDER 01/26/2019 TRACE CHARLEY Viktoria G20 PARKINSON'S DISEASE 01/26/2019 TRACE CHARLEY Viktoria G47.00 INSOMNIA, UNSPECIFIED 01/26/2019 CHRISTIANGELKYLE CHARLEY W I10 ESSENTIAL (PRIMARY) HYPERTENSION 01/26/2019 TRACE CHARLEY Viktoria I48.91 UNSPECIFIED ATRIAL FIBRILLATION 01/26/2019 TRACE CHARLEY Viktoria K21.9 GASTRO-ESOPHAGEAL REFLUX DISEASE WITHOUT ESOPHAGITIS 01/26/2019 CHRISTIANGELKYLE CHARLEY Viktoria N28.9 DISORDER OF KIDNEY AND URETER, UNSPECIFIED 01/26/2019 WILLIAMS CHAVEZ [employer] SUPERVISOR Ot Z51.81 ENCOUNTER FOR THERAPEUTIC DRUG LEVEL MON 01/26/2019 WILLIAMS CHAVEZ [employer] SUPERVISOR Ot Z79.01 GRAIN BROKER (CURRENT) USE OF ANTICOAGULANT 02/02/2019 DORISMAWILLIAMS L [employer]ARD SUPERVISOR Ot Z51.81 ENCOUNTER FOR THERAPEUTIC DRUG LEVEL MON 02/02/2019 DORISMAWILLIAMS L [employer] GUARD SUPERVISOR Ot Z79.01 RETIREMENT (CURRENT) USE OF ANTICOAGULANT 02/02/2019 WILLIAMS CHAVEZ L [employer] GUARD SUPERVISOR Ot Z51.81 ENCOUNTER FOR THERAPEUTIC DRUG LEVEL MON 02/02/2019 DORISMAWILLIAMS L [employer] CR[employer]ING GUARD SUPERVISOR Ot Z79.01 GRAIN BROKER (CURRENT) USE OF ANTICOAGULANT 02/08/2019 WILLIAMS CHAVEZ L [employer]ARD SUPERVISOR Ot Z51.81 ENCOUNTER FOR THERAPEUTIC DRUG LEVEL MON 02/08/2019 WILLIAMS CHAVEZ Ot Z79.01 RETIREMENT (CURRENT) USE OF ANTICOAGULANT 02/11/2019 ANASTASIA BRITO JENSEN Ot E78.5 HYPERLIPIDEMIA, UNSPECIFIED 02/11/2019 OCONNOR DO JENSEN Ot F02.81 DEMENTIA IN OT DISEASES CLASSD ELSWHR W 02/11/2019 OCONNOR DO JENSEN Ot F41.9 ANXIETY DISORDER, UNSPECIFIED 02/11/2019 OCONNOR DO JENSEN Ot G20 PARKINSON'S DISEASE 02/11/2019 OCONNOR DO JENSEN Ot G30.9 ALZHEIMER'S DISEASE, UNSPECIFIED 02/11/2019 OCONNOR DO JENSEN Ot I12.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 02/11/2019 OCONNOR DO JENSEN Ot I25.10 ATHSCL HEART DISEASE OF [place] CORONARY 02/11/2019 ANASTASIA BRITO JENSEN Ot I25.2 OLD MYOCARDIAL INFARCTION 02/11/2019 COTY OCONNOR DOI Ot I48.2 CHRONIC ATRIAL FIBRILLATION 02/11/2019 ANASTASIA BRITO JENSEN Ot N18.2 CHRONIC KIDNEY DISEASE, STAGE 2 (MILD) 02/11/2019 ANASTASIA BRITO JENSEN Ot R07.89 OTHER CHEST PAIN 02/11/2019 JENSEN OCONNOR DO Ot Z79.01 GRAIN BROKER (CURRENT) USE OF ANTICOAGULANT 02/11/2019 ANASTASIA BRITO JENSEN Ot Z87.442 PERSONAL HISTORY OF URINARY CALCULI 02/11/2019 ANASTASIA BRITO JENSEN Ot Z95.0 PRESENCE OF CARDIAC PACEMAKER 02/11/2019 JENSEN OCONNOR DO Ot Z95.1 PRESENCE OF AORTOCORONARY BYPASS GRAFT 02/24/2019 WILLIAMS CHAVEZ Ot Z51.81 ENCOUNTER FOR THERAPEUTIC DRUG LEVEL MON 02/24/2019 WILLIAMS CHAVEZ Ot Z79.01 GRAIN BROKER (CURRENT) USE OF ANTICOAGULANT 02/28/2019 MOI SHIRLEY, JAZIEL Curtis Ot Z29.8 ENCOUNTER FOR OTHER SPECIFIED PROPHYLACT Procedures Code Description Performed By Performed On [...] automated white blood cell (WBC) differential - 11/07/18 16:36 Blood leukocytes automated count (number/volume) 5.7 [...] Blood erythrocyte morphology finding identification NORMAL NRG Complete blood count (CBC) with automated white [...] or blood by coagulation assay 1.7 0.8-1.4 Complete blood count (CBC) with automated white blood cell (WBC) differential - 02/10/19 17:05 Blood leukocytes automated count (number/volume) 5.9 10*3/uL 4.3-11.0 Blood erythrocytes automated count (number/volume) 4.16 10*6/uL 4.35-5.85 Venous blood hemoglobin measurement (mass/volume) 13.6 g/dL 13.3-17.7 Blood hematocrit (volume fraction) 40 % 40-54 Automated erythrocyte mean corpuscular volume 97 [foz_us] 80-99 Automated erythrocyte mean corpuscular hemoglobin (mass per erythrocyte) 33 pg 25-34 Automated erythrocyte mean corpuscular hemoglobin concentration measurement (mass/volume) 34 g/dL 32-36 Automated erythrocyte distribution width ratio 12.9 % 10.0- 14.5 Automated blood platelet count (count/volume) 133 10*3/uL 130-400 Automated blood platelet mean volume measurement 11.9 [foz_us] 7.4-10.4 Automated blood neutrophils/100 leukocytes 53 % 42-75 Automated blood lymphocytes/100 leukocytes 24 % 12-44 Blood monocytes/100 leukocytes 18 % 0-12 Automated blood eosinophils/100 leukocytes 4 % 0-10 Automated blood basophils/100 leukocytes 0 % 0-10 Blood neutrophils automated count (number/volume) 3.1 10*3 1.8-7.8 Blood lymphocytes automated count (number/volume) 1.4 10*3 1.0-4.0 Blood monocytes automated count (number/volume) 1.1 10*3 0.0- 1.0 Automated eosinophil count 0.3 10*3/uL 0.0-0.3 Automated blood basophil count (count/volume) 0.0 10*3/uL 0.0-0.1 PT panel in platelet poor plasma by coagulation assay - 02/10/19 17:05 Prothrombin time (PT) in platelet poor plasma by coagulation assay 22.0 s 12.2-14.7 INR in platelet poor plasma or blood by coagulation assay 1.8 0.8-1.4 Activated partial thromboplastin time (aPTT) in platelet poor plasma bycoagulation assay - 02/10/19 17:05 Activated partial thromboplastin time (aPTT) in platelet poor plasma bycoagulation assay 42 s 24-35 Comprehensive metabolic panel - 02/10/19 17:05 Serum or plasma sodium measurement (moles/volume) 138 mmol/L 135-145 Serum or plasma potassium measurement (moles/volume) 4.5 mmol/L 3.6-5.0 Serum or plasma chloride measurement (moles/volume) 101 mmol/L 98-107 Carbon dioxide 30 mmol/L 21-32 Serum or plasma anion gap determination (moles/volume) 7 mmol/L 5-14 Serum or plasma urea nitrogen measurement (mass/volume) 20 mg/dL 7-18 Serum or plasma creatinine measurement (mass/volume) 1.55 mg/dL 0.60-1.30 Serum or plasma urea nitrogen/creatinine mass ratio 13 NRG Serum or plasma creatinine measurement with calculation of estimated glomerular filtration rate 43 NRG Serum or plasma glucose measurement (mass/volume) 101 mg/dL 70-105 Serum or plasma calcium measurement (mass/volume) 9.7 mg/dL 8.5-10.1 Serum or plasma total bilirubin measurement (mass/volume) 0.7 mg/dL 0.1-1.0 Serum or plasma alkaline phosphatase measurement (enzymatic activity/volume) 92 U/L 40-136 Serum or plasma aspartate aminotransferase measurement (enzymatic activity/volume) 26 U/L 5-34 Serum or plasma alanine aminotransferase measurement (enzymatic activity/volume) 24 U/L 0-55 Serum or plasma protein measurement (mass/volume) 7.2 g/dL 6.4-8.2 Serum or plasma albumin measurement (mass/volume) 4.2 g/dL 3.2-4.5 CALCIUM CORRECTED 9.5 mg/dL 8.5-10.1 Magnesium - 02/10/19 17:05 Magnesium 2.0 mg/dL 1.8-2.4 Serum or plasma troponin i.cardiac measurement (mass/volume) - 02/10/19 17:05 Serum or plasma troponin i.cardiac measurement (mass/volume) < ng/mL <0.028 Myoglobin, serum - 02/10/19 17:05 Myoglobin, serum 83.0 ng/mL 10.0-92.0 Serum or plasma lithium measurement (moles/volume) - 02/10/19 17:05 BNP level 359.3 pg/mL <100.0 Serum or plasma troponin i.cardiac measurement (mass/volume) - 02/10/19 19:16 Serum or plasma troponin i.cardiac measurement (mass/volume) 0.029 ng/mL <0.028 Lipid 1996 panel - 02/11/19 06:29 Serum or plasma triglyceride measurement (mass/volume) 142 mg/dL <150 Serum or plasma cholesterol measurement (mass/volume) 91 mg/dL < 200 Serum or plasma cholesterol in HDL measurement (mass/volume) 22 mg/dL 40-60 Cholesterol in LDL [mass/volume] in serum or plasma by direct assay 48 mg/dL 1-129 Serum or plasma cholesterol in VLDL measurement (mass/volume) 28 mg/dL 5-40 Serum or plasma troponin i.cardiac measurement (mass/volume) - 02/11/19 06:29 Serum or plasma troponin i.cardiac measurement (mass/volume) < ng/mL <0.028 Encounters ACCT No. Visit Date/Time Discharge Status Pt. Type Provider Facility Loc./Unit Complaint [id number] 06/08/2013 11:15:00 06/08/2013 23:59:59 CLS Outpatient IWONA BRITO SEB [facility] [id number] 03/02/2019 13:54:00 03/02/2019 23:59:59 CLS Outpatient JAZIEL PRATER MD [facility] [place] [address] CARDIAC REHAB PHASE 3 [id number] 02/25/2019 10:24:00 02/25/2019 00:01:00 DIS Outpatient JAZIEL PRATER MD [facility] CARDIAC REHAB PHASE 3 [id number] 02/10/2019 20:05:00 02/11/2019 11:50:00 DIS Inpatient JENSEN OCONNOR DO [facility] 4TH CHEST PAIN [id number] 02/02/2019 10:58:00 02/02/2019 23:59:59 CLS Outpatient WILLIAMS CHAVEZ [facility] LAB CHRONIC ANTICOAGULATION [id number] 01/10/2019 09:57:00 01/19/2019 00:01:00 DIS Outpatient JAZIEL PRATER MD [facility] CARDIAC REHAB PHASE 3 [id number] 01/10/2019 18:38:00 01/11/2019 00:46:00 DIS Emergency SUKHJINDER SHIRLEY, CHARLEY Cavazos [facility] ER HX OF DEMENTIA/UNABLE TO CALM DOWN [id number] 01/03/2019 09:40:00 01/03/2019 23:59:59 CLS Outpatient WILLIAMS CHAVEZ [facility] LAB Z79.01,I48.0 [id number] 12/13/2018 11:30:00 12/19/2018 00:01:00 DIS Outpatient JAZIEL PRATER MD [facility] CARDIAC REHAB PHASE 3 [id number] 11/22/2018 09:33:00 12/16/2018 00:01:00 DIS Outpatient WILLIAMS CHAVEZ [facility] LAB Z79.01,I48.0 [id number] 11/17/2018 10:21:00 11/17/2018 00:01:00 DIS Outpatient JAZIEL PRATER MD [facility] CARDIAC REHAB PHASE 3 [id number] 10/13/2018 10:23:00 10/13/2018 00:01:00 DIS Outpatient JAZIEL PRATER MD [facility] CARDIAC REHAB PHASE 3 [id number] 10/08/2018 00:11:00 10/08/2018 23:59:59 CLS Preadmit SLOAN NICE MD [facility] ONC [id number] 07/09/2018 13:01:00 10/07/2018 00:01:00 DIS Outpatient SLOAN NICE MD [facility] ONC [id number] 10/06/2018 00:12:00 10/06/2018 23:59:59 CLS Preadmit ML GANNON APRN [facility] LAB FEVER OF UNKNOWN ORIGIN [id number] 07/07/2018 16:13:00 10/05/2018 00:01:00 DIS Outpatient ML GANNON APRN [facility] LAB FEVER OF UNKNOWN ORIGIN [id number] 09/29/2018 19:39:00 09/30/2018 06:40:00 DIS Outpatient MICHELLE TOBAR APRN [facility] SLEEP ANTONINO G47.33 [id number] 09/27/2018 11:17:00 09/27/2018 23:59:59 CLS Outpatient WILLIAMS CHAVEZ [facility] LAB CKD [id number] 09/10/2018 10:46:00 09/12/2018 00:01:00 DIS Outpatient JAZIEL PRATER MD [facility] [place] [address] CARDIAC REHAB PHASE 3 [id number] 08/06/2018 11:44:00 08/11/2018 00:01:00 DIS Outpatient JAZIEL PRATER MD [facility] [place] [address] CARDIAC REHAB PHASE 3 [id number] 06/28/2018 10:09:00 07/11/2018 00:01:00 DIS Outpatient JAZIEL PRATER MD [facility] [place] [address] CARDIAC REHAB PHASE 3 [id number] 06/15/2018 18:28:00 06/15/2018 21:15:00 DIS Emergency PITO SHIRLEY, HUMA Escalante [facility] ER FELL AT HOME, LEFT HAND,RT KNEE [id number] 06/10/2018 09:26:00 06/14/2018 00:01:00 DIS Outpatient WILLIAMS CHAVEZ [facility] LAB Z79.01,I48.0 [id number] 06/10/2018 08:41:00 06/10/2018 23:59:59 CLS Outpatient AGNIESZKA PARDO MD, FACC, FACP CCDS [facility] CARD SOB,CHRONIC ATRIAL FIBRILLATION,HYPERTENSION [id number] 06/09/2018 10:12:00 06/09/2018 00:01:00 DIS Outpatient JAZIEL PRATER MD [facility] [place] [address] CARDIAC REHAB PHASE 3 [id number] 05/25/2018 07:24:00 05/25/2018 23:59:59 CLS Outpatient AGNIESZKA PARDO MD, FACC, FACP CCDS [facility] CARD SOB,CHRONIC ATRIAL FIBRILLATION,HYPERTENSION [id number] 05/05/2018 16:40:00 05/05/2018 00:01:00 DIS Outpatient JAZIEL PRATER MD R [facility] [place] [address] CARDIAC REHAB PHASE 3 [id number] 03/29/2018 13:45:00 03/29/2018 23:59:59 CLS Outpatient FATIMAH PRATER MDYD R [facility] [place] [address] CARDIAC REHAB PHASE 3 [id number] 02/12/2018 11:07:00 03/14/2018 00:01:00 DIS Outpatient WILLIAMS CHAVEZ [facility] LAB Z79.01,I48.0 [id number] 03/01/2018 10:00:00 03/03/2018 00:01:00 DIS Outpatient JAZIEL PRATER MD R [address] [place] [address] CARDIAC REHAB PHASE 3 [id number] 01/29/2018 17:38:00 01/31/2018 00:01:00 DIS Outpatient JAZIEL PRATER MD R [facility] [place] [address] CARDIAC REHAB PHASE 3 [id number] 12/28/2017 11:46:00 12/30/2017 00:01:00 DIS Outpatient JAZIEL PRATER MD R [address] [place] [address] CARDIAC REHAB PHASE 3 [id number] 11/13/2017 12:34:00 12/13/2017 00:01:00 DIS Outpatient WILLIAMS CHAVEZ [facility] LAB [id number] 11/24/2017 14:15:00 11/24/2017 23:59:59 CLS Outpatient AGNIESZKA PARDO MD, FACC, FACP CCDS [facility] LAB I10,N18.2 [id number] 11/13/2017 12:24:00 11/13/2017 23:59:59 CLS Outpatient AGNIESZKA PARDO MD, FACC, FACP CCDS [facility] LAB I65.23, [id number] 07/15/2017 11:44:00 09/16/2017 00:01:00 DIS Outpatient SLOAN NICE MD [facility] ONC [id number] 08/14/2017 12:26:00 09/13/2017 00:01:00 DIS Outpatient WILLIAMS CHAVEZ [facility] [id number] 05/18/2017 08:27:00 05/30/2017 00:01:00 DIS Outpatient WILLIAMS CHAVEZ [facility] [id number] 05/18/2017 08:52:00 05/18/2017 23:59:59 CLS Outpatient CHAR SHIRLEY FACJanay, ALI FACP CCDS [facility] I65.23,Z79.01,N18.2,E78.4,I10,I48.0,I49.5 [id number] 02/12/2017 10:43:00 03/10/2017 00:01:00 DIS Outpatient ROGELIO CORTES MD [facility] [id number] 01/14/2017 00:11:00 01/14/2017 23:59:59 CLS Preadmit CHAR SHIRLEY FACJanay, ALI FACP CCDS [facility] A-FIB,[place] [id number] 12/12/2016 13:35:00 01/13/2017 00:01:00 DIS Outpatient CHAR SHIRLEY FACC, ALI FACP CCDS [facility] [place]IB,[place] [id number] 06/12/2016 08:55:00 09/10/2016 00:01:00 DIS Outpatient ROGELIO CORTES MD [facility] ONC [id number] 07/15/2016 09:37:00 08/05/2016 00:01:00 DIS Outpatient CHAR SHIRLEY FACC, ALI FACP CCDS [facility] [place]IB,[place] [id number] 04/03/2016 11:09:00 04/29/2016 00:01:00 DIS Outpatient CHAR SHIRLEY FACC, ALI FACP CCDS [facility] [place]IB,[place] [id number] 12/17/2015 12:11:00 01/28/2016 00:01:00 DIS Outpatient CHAR SHIRLEY FACC, ALI FACP CCDS [facility] [place]IB,[place] [id number] 01/04/2016 09:32:00 01/04/2016 23:59:59 CLS Outpatient CHAR SHIRLEY FACJanay, ALI FACP CCDS [facility] CARD AFIB [id number] 01/04/2016 10:47:00 01/04/2016 13:20:00 DIS Emergency PITO SHIRLEY, HUMA Escalante [facility] ER LEFT LEG PAIN/SWELLING [id number] 11/02/2015 14:34:00 11/02/2015 23:59:59 CLS Outpatient JAZIEL PRATER MD [facility] UNSPECIFIED ARTRIAL FEBRILLATION [id number] 10/31/2015 13:43:00 11/01/2015 14:40:00 DIS Inpatient JAZIEL PRATER MD [facility] CSD ATYPICAL CHEST PAIN CHRONIC RENAL INSUFFICIENCY [id number] 10/01/2015 12:33:00 10/10/2015 00:01:00 DIS Outpatient CHAR SHIRLEY FACC, ALI FACP CCDS [facility] [place]FIB,[place] [id number] 06/14/2015 10:21:00 09/12/2015 00:01:00 DIS Outpatient ROGELIO CORTES MD [facility] ONC [id number] 05/28/2015 12:12:00 05/30/2015 00:01:00 DIS Outpatient CHAR SHIRLEY FACC, ALI FACP CCDS [facility] [place]IB,[place] [id number] 04/12/2015 11:37:00 05/06/2015 00:01:00 DIS Outpatient CHAR SHIRLEY FACC, ALI FACP CCDS [facility] [place]-FIB,[place] [id number] 04/23/2015 11:31:00 04/23/2015 23:59:59 CLS Outpatient JAZIEL PRATER MD [facility] BUN/CREAT [id number] 03/30/2015 10:59:00 03/30/2015 23:59:59 CLS Outpatient JAZIEL PRATER MD [facility] RAD PERSISTENT COUGH [id number] 03/05/2015 15:34:00 03/05/2015 23:59:59 CLS Outpatient MOI SHIRLEY, JAZIEL R [facility] MALAISE [id number] 11/14/2014 13:17:00 02/12/2015 00:01:00 DIS Outpatient ROGELIO CORTES MD [facility] ONC [id number] 01/19/2015 14:04:00 02/01/2015 00:01:00 DIS Outpatient CHAR SHIRLEY FACC, ALI RONNA CCDS [facility] [place]IB,[place] [id number] 12/19/2014 08:49:00 12/19/2014 23:59:59 CLS Outpatient WILLIAMS CHAVEZ [facility] HYPERTENSION, A FIB, HYPERLIPIDEMIA, CORONARY BILLY [id number] 11/29/2014 10:35:00 11/29/2014 23:59:59 CLS Outpatient WILLIAMS CHAVEZ [facility] CARD CAD,HTN,HLP [id number] 10/04/2014 15:05:00 10/04/2014 23:59:59 CLS Outpatient CHAR SHIRLEY FACC, AGNIESZKA FRIEND CCDS [facility] [place]IB,[place] [id number] 05/16/2014 12:55:00 08/14/2014 00:01:00 DIS Outpatient ROGELIO CORTES MD [facility] ONC [id number] 07/19/2014 10:57:00 07/19/2014 12:54:00 DIS Emergency CHARLEY SLAUGHTER MD [facility] ER WEAKNESS DIARRHEA [id number] 06/22/2014 10:06:00 07/03/2014 00:01:00 DIS Outpatient CHAR SHIRLEY FACC, AGNIESZKA FRIEND CCDS [facility] [place]IB,[place] [id number] 01/11/2014 12:35:00 04/11/2014 00:01:00 DIS Outpatient ROGELIO CORTES MD [facility] ONC [id number] 03/21/2014 09:18:00 03/22/2014 00:01:00 DIS Outpatient WILLIAMS CHAVEZ [facility] [place]FIB,[place] [id number] 10/12/2013 12:49:00 01/04/2014 15:17:00 DIS Outpatient ROGELIO CORTES MD [facility] ONC [id number] 11/14/2013 12:43:00 11/30/2013 00:01:00 DIS Outpatient BAIWILLIAMS CANOP [facility] [place]IB,[place] [id number] 07/13/2013 12:54:00 10/11/2013 00:01:00 DIS Outpatient ROGELIO CORTES MD [facility] ONC [id number] 07/12/2013 15:19:00 08/24/2013 00:01:00 DIS Outpatient BAIWILLIAMS CANO [employer] [facility] [place]IB,[place] [id number] 07/14/2013 08:37:00 07/14/2013 23:59:59 CLS Outpatient BAIWILLIAMS CANOP [facility] HYPERLIPIDEMIA [id number] 07/05/2013 10:49:00 07/05/2013 18:00:00 DIS Outpatient AGNIESZKA PARDO MD, FACC, FACP CCDS [facility] CATH POSTITVE STRESS TEST,CAD,HLP,HTN [id number] 06/30/2013 07:31:00 06/30/2013 23:59:59 CLS Outpatient AGNIESZKA PARDO MD, FACC, FACP CCDS [facility] RAD CHEST DISCOMFORT,CAD,HX OF CABG [id number] 05/23/2013 14:50:00 06/24/2013 09:54:00 DIS Outpatient ROGELIO CORTES MD [facility] ONC [id number] 04/07/2013 14:55:00 05/10/2013 00:01:00 DIS Outpatient BAIWILLIAMS CANOP [facility] [place]FIB,[place] [id number] 04/11/2013 10:25:00 04/11/2013 23:59:59 CLS Outpatient BAIWILLIAMS [employer]O [employer] [facility] CHF [id number] 04/04/2013 11:21:00 04/04/2013 23:59:59 CLS Outpatient WILLIAMS CHAVEZ [employer] [facility] CHF [id number] 03/29/2013 11:32:00 03/29/2013 23:59:59 CLS Outpatient BAIWILLIAMS [employer]O [employer] [facility] DIURETIC TR ELEVATED BNP [id number] 03/23/2013 07:37:00 03/23/2013 23:59:59 CLS Outpatient WILLIAMS CHAVEZ [employer] [facility] RAD ELEVATED LIVER ENZYMES [id number] 03/17/2013 08:27:00 03/17/2013 23:59:59 CLS Outpatient CHAR SHIRLEY FACC, AGNIESZKA FRIEND CCDS [facility] LEG SWELLING,A-FIB, [id number] 10/30/2015 10:34:00 Document Registration [id number] 10/30/2015 10:34:00 Document Registration [id number] 05/16/2014 08:56:00 Document Registration [id number] 01/26/2013 11:35:00 Document Registration [id number] 11/17/2012 19:55:00 Document Registration [id number] 10/18/2012 12:30:00 Document Registration [id number] 07/29/2012 09:27:00 Document Registration [id number] 06/14/2012 11:49:00 Document Registration [id number] 06/14/2012 08:47:00 Document Registration [id number] 05/05/2012 14:07:00 Document Registration [id number] 04/26/2012 11:56:00 Document Registration [id number] 04/21/2012 09:46:00 Document Registration [id number] 03/29/2012 09:20:00 Document Registration [id number] 03/22/2012 16:00:00 Document Registration [id number] 03/19/2012 13:28:00 Document Registration [id number] 02/27/2012 11:47:00 Document Registration [id number] 12/28/2011 14:14:00 Document Registration [id number] 12/01/2011 06:53:00 Document Registration [id number] 11/07/2011 12:08:00 Document Registration [id number] 11/06/2011 10:30:00 Document Registration [id number] 10/31/2011 11:23:00 Document Registration [id number] 10/29/2011 16:17:00 Document Registration [id number] 10/20/2011 06:44:00 Document Registration [id number] 10/13/2011 10:46:00 Document Registration [id number] 09/09/2011 05:05:00 Document Registration [id number] 08/15/2011 11:11:00 Document Registration [id number] 06/20/2011 08:07:00 Document Registration [id number] 01/11/2019 01:26:00 01/26/2019 11:30:00 [id number] 01/11/2019 01:59:50 Document Registration
--- NOTE | 2019-03-10 12:45 | Diagnostic Imaging Report ---
INDICATION: Fall. TIME OF EXAMINATION: 12:26 PM. COMPARISON: 02/10/2019. FINDINGS: Changes of median sternotomy and CABG are noted. The cardiac pacemaker remains in place. The lungs are clear. No infiltrates are seen. No effusion or pneumothorax is identified. IMPRESSION: No acute cardiopulmonary process is detected. Dictated by: Dictated on workstation # [id number]
--- NOTE | 2019-03-10 12:46 | Diagnostic Imaging Report ---
INDICATION: Fall. TIME OF EXAMINATION: 12:28 PM. TECHNIQUE: An AP view of the pelvis and two views of the left hip were obtained. FINDINGS: The femoroacetabular alignment is normal bilaterally. Both femoral heads and necks appear to be intact. The rami are intact. The SI joints and symphysis are not widened. No fractures are seen. IMPRESSION: No acute bony abnormality is detected. Dictated by: Dictated on workstation # [id number]
--- NOTE | 2019-03-10 12:57 | Diagnostic Imaging Report ---
PROCEDURE: CT head and CT cervical spine without contrast. TECHNIQUE: Multiple contiguous axial images were obtained through the brain and cervical spine without the use of intravenous contrast. Sagittal and coronal reformations through the cervical spine were then performed. Auto Exposure Controls were utilized during the CT exam to meet ALARA standards for radiation dose reduction. INDICATION: Fall. COMPARISON: Head CT from 06/15/2018. FINDINGS: CT HEAD: The ventricles and sulci are stable in appearance. There is cavum septum pellucidum and cavum vergae. Moderate periventricular hypodensity is noted, consistent with senescent change. There is no sulcal effacement or midline shift. No acute intra-axial or extra-axial hemorrhage is detected. The cisterns are patent. The visualized paranasal sinuses are clear. IMPRESSION: Senescent changes. No acute intracranial process is detected. CT CERVICAL SPINE: The curvature is normal. There is minimal anterolisthesis of C4 on C5. Multilevel degenerative disc disease is seen with variable disc space narrowing and marginal spurring. There appears to be partial osseous fusion between the C3 and C4 vertebral bodies. No fractures are identified. The prevertebral tissues are unremarkable. The odontoid is intact. Multilevel facet arthropathy is seen. IMPRESSION: Cervical spondylosis. No acute bony abnormality is detected. Dictated by: Dictated on workstation # [id number]
[2019-03-10 13:35] VITALS: BP 96/51
== END 2019-03-10 13:35 | disposition home or self-care (01) ==
LOC: EDUNIT# 11:42 → ER 11:42
DX: S70.02XA Contusion of left hip, initial encounter (principal); I48.91 Unspecified atrial fibrillation; I25.10 Atherosclerotic heart disease of native coronary artery without angina pectoris; I25.2 Old myocardial infarction; G20 Parkinson's disease; F02.80 Dementia in other diseases classified elsewhere, unspecified severity, without behavioral disturbance, psychotic disturbance, mood disturbance, and anxiety; F41.9 Anxiety disorder, unspecified; R40.2142 Coma scale, eyes open, spontaneous, at arrival to emergency department; R40.2252 Coma scale, best verbal response, oriented, at arrival to emergency department; R40.2362 Coma scale, best motor response, obeys commands, at arrival to emergency department; Z87.442 Personal history of urinary calculi; Z87.01 Personal history of pneumonia (recurrent); Z79.82 Long term (current) use of aspirin; Z79.01 Long term (current) use of anticoagulants; Z95.1 Presence of aortocoronary bypass graft; Z82.49 Family history of ischemic heart disease and other diseases of the circulatory system; W07.XXXA Fall from chair, initial encounter; Y92.009 Unspecified place in unspecified non-institutional (private) residence as the place of occurrence of the external cause
CPT/HCPCS: 70450; 71045; 72125

== ENCOUNTER 2019-04-06 13:21 | Outpatient (RCR) | payer MEDICARE, OTHER ==
[2019-03-23 13:40] LABS: INR 1.2 (0.8-1.4); PROTHROMBIN TIME PATIENT 15.9 SEC (12.2-14.7)
[2019-04-06 13:47] LABS: INR 3.1 (0.8-1.4); PROTHROMBIN TIME PATIENT 33.8 SEC (12.2-14.7)
[2019-05-19] MEDS ORDERED: CEFD300C3 PO (12:59)
== END 2019-06-21 | disposition home or self-care (01) ==
LOC: LAB 13:21
PROVIDERS: ATTEND Nurse Practitioner Family
DX: Z51.81 Encounter for therapeutic drug level monitoring (principal); Z79.01 Long term (current) use of anticoagulants
CPT/HCPCS: 36415; 85610

== ENCOUNTER 2019-04-19 15:45 | Emergency (ER) | payer MEDICARE, OTHER ==
[~2019-04-19] VITALS: Ht 172.7 cm; Wt 90.7 kg
[2019-04-19 16:04] LABS: BASOPHILS % (AUTO) 0 % (0-10); EOSINOPHILS # (AUTO) 0.2 10^3/uL (0.0-0.3); EOSINOPHILS % (AUTO) 2 % (0-10); HEMATOCRIT 39 % (40-54); HEMOGLOBIN 13.1 G/DL (13.3-17.7); LYMPHOCYTES # (AUTO) 0.6 X 10^3 (1.0-4.0); LYMPHOCYTES % (AUTO) 8 % (12-44); MEAN CORPUSCULAR HEMOGLOBIN 32 PG (25-34); MEAN CORPUSCULAR HGB CONC 34 G/DL (32-36); MEAN CORPUSCULAR VOLUME 96 FL (80-99); MEAN PLATELET VOLUME 11.7 FL (7.4-10.4); MONOCYTES # (AUTO) 1.1 X 10^3 (0.0-1.0); MONOCYTES % (AUTO) 14 % (0-12); NEUTROPHILS # (AUTO) 5.7 X 10^3 (1.8-7.8); NEUTROPHILS % (AUTO) 75 % (42-75); PLATELET COUNT 123 10^3/uL (130-400); RED CELL DISTRIBUTION WIDTH 12.9 % (10.0-14.5); WHITE BLOOD COUNT 7.6 10^3/uL (4.3-11.0)
[2019-04-19] MEDS ORDERED: NS IV 1000 ML 1,000 ML IV ONE (16:11)
[2019-04-19 16:23] LABS: BAND NEUTROPHILS 4 %; EOSINOPHILS % (MANUAL) 7 %; LYMPHOCYTES % (MANUAL) 6 %; MONOCYTES % (MANUAL) 13 %; NEUTROPHILS % (MANUAL) 70 %; RBC MORPH NORMAL
[2019-04-19 16:24] LABS: BILIRUBIN,TOTAL 1.1 MG/DL (0.1-1.0); CALCIUM 9.7 MG/DL (8.5-10.1); CREATININE SERUM 1.57 MG/DL (0.60-1.30); INR 3.2 (0.8-1.4); POTASSIUM 4.5 MMOL/L (3.6-5.0); PROTHROMBIN TIME PATIENT 33.8 SEC (12.2-14.7); TOTAL PROTEIN 7.1 GM/DL (6.4-8.2)
--- NOTE | 2019-04-19 16:31 | Diagnostic Imaging Report ---
INDICATION: Weakness. TIME OF EXAM: 4:16 PM CORRELATION is made with prior chest from 03/10/2019. FINDINGS: Changes of median sternotomy are noted. The heart remains enlarged. Cardiac pacemaker remains in place. Congestive changes are noted in both lungs. Central vascularity is prominent. Interstitial markings are mildly prominent. There is no effusion or pneumothorax. IMPRESSION: Findings suggestive of mild congestive failure. Dictated by: Dictated on workstation # [id number]
[2019-04-19 18:07] LABS: BILIRUBIN,URINE NEGATIVE (NEGATIVE); CLARITY,URINE CLEAR; COLOR,URINE YELLOW; GLUCOSE, URINE (UA) NEGATIVE (NEGATIVE); KETONES,URINE NEGATIVE (NEGATIVE); LEUKOCYTE ESTERASE ,URINE NEGATIVE (NEGATIVE); NITRITE,URINE NEGATIVE (NEGATIVE); PH,URINE 7 (5-9); PROTEIN,URINE NEGATIVE (NEGATIVE); UROBILINOGEN,URINE NORMAL (NORMAL)
[2019-04-19 18:16] LABS: BACTERIA,URINE TRACE /HPF; RBC,URINE 0-2 /HPF
[2019-04-19] MEDS ORDERED: NS IV 500 ML 500 ML IV ONE (18:19)
--- NOTE | 2019-04-19 19:02 | ED Neurological Problem ---
General Chief Complaint: Neurological Problems Stated Complaint: WEAKNESS/MULTIPLE FALLS Nursing Triage Note: TO ROOM 06 VIA WC WITH . STATES SINCE SAT HE HAS BEEN HAVING GENERALIZED WEAKNESS AND HAS WENT TO THE FLOOR X4. STATES HE HAS BEEN HAVING TROUBLE SWALLOWING. Nursing Sepsis Screen: No Definite Risk Source: patient, spouse Exam Limitations: no limitations History of Present Illness Date Seen by Provider: Apr 19, 2019 Time Seen by Provider: 18:00 Initial Comments Patient presents to ER by private conveyance with spouse and chief complaint the past couple days the patient's had 4 falls. He just has weakness in his right leg that leads to him falling down to his knees. He denies striking his head loss of consciousness. He is on Coumadin. He typically will have some weakness i n his right leg when walking and have to stop regain his balance but the past couple days been worse. She knows that he has dementia but she thinks that he then will be more confused as of late. No complaints of pain shortness of breath dysuria nausea vomiting diarrhea constipation. He had a bowel movement today which was normal. No fevers chills rash bedsores sore throat runny nose ears feeling under water or any pain. Last time he had a medication change was in December he had sertraline and risperidone added. Allergies and Home Medications Allergies Coded Allergies: No Known Drug Allergies (Unverified , 11/18/12) Home Medications Aspirin 81 Mg Tablet.dr, 81 MG PO DAILY, (Reported) Atorvastatin Calcium 40 Mg Tablet, 40 MG PO HS, (Reported) Calcium/Magnesium/Zinc 1 Each Tablet, 1 TAB PO DAILY, (Reported) Furosemide 40 Mg Tablet, 40 MG PO TuThSa, (Reported) Metoprolol Tartrate 100 Mg Tablet, 100 MG PO BID, (Reported) Multivit-Min/FA/Lycopene/Lut 1 Each Tablet, 1 TAB PO DAILY, (Reported) [place] 3 Polyunsat Fatty Acids 1,000 Mg Cap, 1,000 MG PO DAILY, (Reported) Pantoprazole Sodium 40 Mg Tablet.dr, 40 MG PO DAILY, (Reported) Risperidone 0.5 Mg Tablet, 0.75 MG PO BID, (Reported) TAKE 1 & 1/2 (0.5MG) TABLET Sertraline HCl 50 Mg Tablet, 50 MG PO 1600, (Reported) Spironolactone 25 Mg Tablet, 25 MG PO BID, (Reported) Warfarin Sodium 2.5 Mg Tablet, 1.25 MG PO MoFr@2100, (Reported) TAKES 1/2 (2.5MG) TABLET Warfarin Sodium 2.5 Mg Tablet, 2.5 MG PO SuTuWeThSa@2100, (Reported) Patient Home Medication List Home Medication List Reviewed: Yes Review of Systems Review of Systems Constitutional: No chills, No fever, No malaise; weakness Eyes: Denies Blindness, Denies Blurred Vision Ears, Nose, Mouth, Throat: denies ear pain Respiratory: No cough, No short of breath Cardiovascular: No chest pain, No edema; Hx of Intervention Gastrointestinal: No abdominal pain, No diarrhea, No nausea, No vomiting Genitourinary: No discharge, No dysuria Musculoskeletal: No back pain, No joint pain Past Orujlnm-Uiseni-Sbpaiq Hx Patient Social History Alcohol Use: Past History Recreational Drug Use: No Smoking Status: Never a Smoker 2nd Hand Smoke Exposure: No Recent Foreign Travel: No Contact w/Someone Who Travel: No Recent Infectious Disease Expo: No Recent Hopitalizations: No Physical Abuse: No Sexual Abuse: No Mistreated: No Fear: No Immunizations Up To Date Tetanus Booster (TDap): More than 5yrs PED Vaccines UTD: No Date of Pneumonia Vaccine: May 31, 2016 Date of Influenza Vaccine: May 31, 2015 Seasonal Allergies Seasonal Allergies: No Past Medical History Surgeries: Yes CABG Respiratory: Yes Pneumonia Currently Using CPAP: No Currently Using BIPAP: No Cardiac: Yes (PACE MAKER) Atrial Fibrillation, Coronary Artery Disease, Heart Attack Neurological: Yes (PARKINSON) Dementia, Parkinson's Disease Reproductive Disorders: No Sexually Transmitted Disease: No HIV/AIDS: No Genitourinary: Yes Kidney Stones, Renal Failure Gastrointestinal: No Musculoskeletal: Yes Arthritis Endocrine: No HEENT: Yes Cataract Hearing Impairment: Denies Cancer: No Psychosocial: Yes Sleep Difficulties, Anxiety Integumentary: No Blood Disorders: No Family Medical History Hypertension 19 FATHER 19 MOTHER Osteoporosis Pneumococcal pneumonia G8 BROTHER, Physical Exam Vital Signs Vital Signs - First Documented 04/19/19 15:50 Temp 98.4 Pulse 80 Resp 16 B/P (MAP) 122/71 (88) Pulse Ox 94 O2 Delivery Room Air Capillary Refill : Less Than 3 Seconds Height, Weight, BMI Height: 5'8.00" Weight: 200lbs. 0.0oz. 90.042568qm; 31.0 BMI Method:Estimated General Appearance: WD/WN, no apparent distress HEENT: PERRL/EOMI, normal ENT inspection, TMs normal, pharynx normal Neck: non-tender, full range of motion, normal inspection Respiratory: chest non-tender, lungs clear, normal breath sounds, no respiratory distress, no accessory muscle use Cardiovascular: normal peripheral pulses, regular rate, rhythm, no edema Peripheral Pulses: 2+ Radial Pulses (R), 2+ Radial Pulses (L) Gastrointestinal: normal bowel sounds, non tender, soft Neurologic/Psychiatric: alert, normal mood/affect, other (Background of dementia. Oriented to person and place.) Progress/Results/Core Measures Results/Orders Lab Results Laboratory Tests Test 04/19/19 15:55 04/19/19 18:00 Range/Units White Blood Count 7.6 4.3-11.0 10^3/uL Red Blood Count 4.07 L 4.35-5.85 10^6/uL Hemoglobin 13.1 L 13.3-17.7 G/DL Hematocrit 39 L 40-54 % Mean Corpuscular Volume 96 80-99 FL Mean Corpuscular Hemoglobin 32 25-34 PG Mean Corpuscular Hemoglobin Concent 34 32-36 G/DL Red Cell Distribution Width 12.9 10.0-14.5 % Platelet Count 123 L 130-400 10^3/uL Mean Platelet Volume 11.7 H 7.4-10.4 FL Neutrophils (%) (Auto) 75 42-75 % Lymphocytes (%) (Auto) 8 L 12-44 % Monocytes (%) (Auto) 14 H 0-12 % Eosinophils (%) (Auto) 2 0-10 % Basophils (%) (Auto) 0 0-10 % Neutrophils # (Auto) 5.7 1.8-7.8 X 10^3 Lymphocytes # (Auto) 0.6 L 1.0-4.0 X 10^3 Monocytes # (Auto) 1.1 H 0.0-1.0 X 10^3 Eosinophils # (Auto) 0.2 0.0-0.3 10^3/uL Basophils # (Auto) 0.0 0.0-0.1 10^3/uL Neutrophils % (Manual) 70 % Lymphocytes % (Manual) 6 % Monocytes % (Manual) 13 % Eosinophils % (Manual) 7 % Band Neutrophils 4 % Blood Morphology Comment NORMAL Prothrombin Time 33.8 H 12.2-14.7 SEC INR Comment 3.2 H 0.8-1.4 Sodium Level 139 135-145 MMOL/L Potassium Level 4.5 3.6-5.0 MMOL/L Chloride Level 102 98-107 MMOL/L Carbon Dioxide Level 25 21-32 MMOL/L Anion Gap 12 5-14 MMOL/L Blood Urea Nitrogen 20 H 7-18 MG/DL Creatinine 1.57 H 0.60-1.30 MG/DL Estimat Glomerular Filtration Rate 42 BUN/Creatinine Ratio 13 Glucose Level 100 70-105 MG/DL Calcium Level 9.7 8.5-10.1 MG/DL Corrected Calcium 9.7 8.5-10.1 MG/DL Magnesium Level 2.0 1.6-2.4 MG/DL Total Bilirubin 1.1 H 0.1-1.0 MG/DL Aspartate Amino Transf (AST/SGOT) 24 5-34 U/L Alanine Aminotransferase (ALT/SGPT) 21 0-55 U/L Alkaline Phosphatase 108 40-136 U/L Troponin I < 0.028 <0.028 NG/ML B-Type Natriuretic Peptide 239.5 H <100.0 PG/ML Total Protein 7.1 6.4-8.2 GM/DL Albumin 4.0 3.2-4.5 GM/DL Urine Color YELLOW Urine Clarity CLEAR Urine pH 7 5-9 Urine Specific [place] 1.010 L 1.016-1.022 Urine Protein NEGATIVE NEGATIVE Urine Glucose (UA) NEGATIVE NEGATIVE Urine Ketones NEGATIVE NEGATIVE Urine Nitrite NEGATIVE NEGATIVE Urine Bilirubin NEGATIVE NEGATIVE Urine Urobilinogen NORMAL NORMAL MG/DL Urine Leukocyte Esterase NEGATIVE NEGATIVE Urine RBC (Auto) 2+ H NEGATIVE Urine RBC 0-2 /HPF Urine WBC NONE /HPF Urine Crystals NONE /LPF Urine Bacteria TRACE /HPF Urine Casts NONE /LPF Urine Mucus NEGATIVE /LPF Urine Culture Indicated NO My Orders Orders - AMBERLY BASS Troponin I (04/19/19 18:19) Ekg Tracing (04/19/19 18:19) Continuous Ekg Monitoring (04/19/19 18:19) Ed Iv/Invasive Line Start (04/19/19 18:19) Ns Iv 500 Ml (Sodium Chloride 0.9%) (04/19/19 18:19) Ct Head/Cervical Spine Wo (04/19/19 19:02) Medications Given in ED Current Medications Medications Dose Ordered Sig/Hipolito Route Start Time Stop Time Status Last Admin Dose Admin Sodium Chloride 1,000 ml @ 0 mls/hr Q0M ONCE IV 04/19/19 16:11 04/19/19 18:21 DC 04/19/19 16:27 1,000 MLS/HR Vital Signs/I&O 04/19/19 04/19/19 15:50 20:47 Temp 98.4 98.7 Pulse 80 55 Resp 16 16 B/P (MAP) 122/71 (88) 134/63 (86) Pulse Ox 94 96 O2 Delivery Room Air Room Air Blood Pressure Mean: 88 Progress Progress Note #1: Time: 19:00 Progress Note Initial workup thinking about delirium from infection negative. History does not support any of his medications changed. Patient is mildly clinically dry but he received a liter of fluids on arrival. He should probably stay dry based on his history of heart disease and CABG. He is on diuretics. EKG unrevealing. Troponin negative. We will obtain a CT of the head without IV contrast even though he did not strike his head considering the possibility of normal pressure hydrocephalus. Progress Note #2: Time: 20:31 Progress Note Workup is unremarkable. Patient has debility which seems to be from his progressing dementia. We offered the to put him up on observation stay for physical debility and look for placement for some maybe inpatient physical rehabilitation and she would prefer to take him home tonight she says she has his nephew who lives in [facility] who can help take care of him. She has a wheelchair in a car. Plan then would be to follow up with primary care tomorrow and see what else we can do maybe increasing physical therapy or looking for a short stay physical rehabilitation Initial ECG Impression Date: Apr 19, 2019 Initial ECG Impression Time: 18:55 Initial ECG Rate: 60 Initial ECG Rhythm: Normal Sinus Initial ECG Intervals: Normal (244) Initial ECG Impression: Nonspecific Changes, 1st Degree AV Block Comment PVCs, sinus rhythm and first-degree AV block with no clinically significant ST elevation or depression. Diagnostic Imaging Diagonstic Imaging: Xray Plain Films/CT/US/NM/MRI: chest (1v) Comments NAME: NELIA CORONEL MED REC#: [id number] PT STATUS: REG ER : 1935 PHYSICIAN: CHARLEY SLAUGHTER MD ADMIT DATE: 04/19/19/ER Signed Date of Exam:04/19/19 CHEST 1 VIEW, AP/PA ONLY INDICATION: Weakness. TIME OF EXAM: 4:16 PM CORRELATION is made with prior chest from 03/10/2019. FINDINGS: Changes of median sternotomy are noted. The heart remains enlarged. Cardiac pacemaker remains in place. Congestive changes are noted in both lungs. Central vascularity is prominent. Interstitial markings are mildly prominent. There is no effusion or pneumothorax. IMPRESSION: Findings suggestive of mild congestive failure. Dictated by: Dictated on workstation # [id number] Dict: 04/19/19 1628 Trans: 04/19/191850 [facility] [id number] Interpreted by: RASTA CORNEJO MD Electronically signed by: RASTA CORNEJO MD 04/19/191850 Reviewed: Reviewed by Ma Diagonstic Imaging: CT (Noncontrast) Plain Films/CT/US/NM/MRI: c-spine, head Comments NAME: NELIA CORONEL [facility] REC#: [id number] PT STATUS: REG ER : 1935 PHYSICIAN: AMBERLY BASS MD ADMIT DATE: 04/19/19/ER Draft Date of Exam:04/19/19 CT HEAD/CERVICAL SPINE WO PROCEDURE: CT head and CT cervical spine without contrast. TECHNIQUE: Multiple contiguous axial images were obtained through the brain and cervical spine without the use of intravenous contrast. Sagittal and coronal reformations through the cervical spine were then performed. Auto Exposure Controls were utilized during the CT exam to meet ALARA standards for radiation dose reduction. INDICATION: Weakness and fall COMPARISON: CT head 03/10/2019 CT head: There is stable age-related cerebral volume loss and microvascular changes. There is no focus of acute ischemia or hemorrhage. No extra-axial fluid collection is seen. There is no skull fracture. The paranasal sinuses and mastoids are stable. IMPRESSION: No acute intracranial abnormalities CT cervical spine: Alignment is anatomical. There is no subluxation or fracture. Mild degenerative changes are present throughout. Normal variant retropharyngeal carotid arteries are present. There is moderate atherosclerotic disease. No osseous lesion. IMPRESSION: No traumatic malalignment or fracture. Dictated on workstation # [id number] Dict: 04/19/191945 Trans: 04/19/191952 [facility] [id number] Interpreted by: DEENA PAK Electronically signed by: Reviewed: Reviewed by Me Departure Impression Primary Impression: Fall Qualified Codes: W19.XXXA - Unspecified fall, initial encounter Additional Impressions: Debility, unspecified Dementia Qualified Codes: F03.90 - Unspecified dementia without behavioral disturbance Disposition: 01 HOME, SELF-CARE Condition: Stable Departure-Patient Inst. Decision time for Depature: 20:30 Referrals: JAZIEL PEREZ MD (PCP/Family) Primary Care Physician Patient Instructions: Generalized Weakness (DC), Getting Up From a Fall, Preventing Falls Add. Discharge Instructions: Tomorrow plan to follow up with primary care Dr. Perez and discuss further management. Return to the ER if you have further falls or other concerns. All discharge instructions reviewed with patient and/or family. Voiced understanding. AMBERLY BASS Apr 19, 2019 19:02
--- NOTE | 2019-04-19 19:54 | Diagnostic Imaging Report ---
PROCEDURE: CT head and CT cervical spine without contrast. TECHNIQUE: Multiple contiguous axial images were obtained through the brain and cervical spine without the use of intravenous contrast. Sagittal and coronal reformations through the cervical spine were then performed. Auto Exposure Controls were utilized during the CT exam to meet ALARA standards for radiation dose reduction. INDICATION: Weakness and fall COMPARISON: CT head 03/10/2019 CT head: There is stable age-related cerebral volume loss and microvascular changes. There is no focus of acute ischemia or hemorrhage. No extra-axial fluid collection is seen. There is no skull fracture. The paranasal sinuses and mastoids are stable. IMPRESSION: No acute intracranial abnormalities CT cervical spine: Alignment is anatomical. There is no subluxation or fracture. Mild degenerative changes are present throughout. Normal variant retropharyngeal carotid arteries are present. There is moderate atherosclerotic disease. No osseous lesion. IMPRESSION: No traumatic malalignment or fracture. Dictated by: Dictated on workstation # [id number]
[2019-04-19 20:47] VITALS: BP 134/63
== END 2019-04-19 20:49 | disposition home or self-care (01) ==
LOC: EDUNIT# 15:45 → ER 15:46
DX: G20 Parkinson's disease (principal); F02.80 Dementia in other diseases classified elsewhere, unspecified severity, without behavioral disturbance, psychotic disturbance, mood disturbance, and anxiety; R53.81 Other malaise; R29.6 Repeated falls; I48.91 Unspecified atrial fibrillation; I25.10 Atherosclerotic heart disease of native coronary artery without angina pectoris; I25.2 Old myocardial infarction; F41.9 Anxiety disorder, unspecified; Z95.0 Presence of cardiac pacemaker; Z87.01 Personal history of pneumonia (recurrent); Z79.01 Long term (current) use of anticoagulants; Z79.82 Long term (current) use of aspirin; Z95.1 Presence of aortocoronary bypass graft; Z87.442 Personal history of urinary calculi; Z82.49 Family history of ischemic heart disease and other diseases of the circulatory system
CPT/HCPCS: 36415; 51701; 70450; 71045; 72125; 80053; 81000; 83735; 83880; 84484; 85007; 85027; 85610; 93005

== ENCOUNTER 2019-05-03 12:58 | Emergency (ER) | payer MEDICARE, OTHER ==
[~2019-05-03] VITALS: Ht 172.7 cm; Wt 90.7 kg
[2019-05-03] MEDS ORDERED: LIDOCAINE UROJET 2% GEL 10 ML PKG TOP ONE (13:15)
--- NOTE | 2019-05-03 13:26 | ED GU-Female ---
General Chief Complaint: - Urinary Stated Complaint: HASNT PEED SINCE 7PM 05/02 Nursing Triage Note: pt has not urinated since last night at 7pm et has not had a BM since . Denies pain. Nursing Sepsis Screen: No Definite Risk Source: family Exam Limitations: no limitations History of Present Illness Date Seen by Provider: May 03, 2019 Time Seen by Provider: 13:24 Initial Comments To ER by private vehicle accompanied by his . He is demented and she is his caregiver. He's had oliguria since Thursday as well as urinary incontinence and restlessness. He denies being in any pain. No fevers or chills. Timing/Duration: constant Severity/Quality: moderate Radiation: none Activities at Onset: none Prior Genitourinary Problems: none Associated Symptoms: dysuria Allergies and Home Medications Allergies Coded Allergies: No Known Drug Allergies (Unverified , 11/18/12) Home Medications Aspirin 81 Mg Tablet.dr, 81 MG PO DAILY, (Reported) Atorvastatin Calcium 40 Mg Tablet, 40 MG PO HS, (Reported) Calcium/Magnesium/Zinc 1 Each Tablet, 1 TAB PO DAILY, (Reported) Furosemide 40 Mg Tablet, 40 MG PO TuThSa, (Reported) Metoprolol Tartrate 100 Mg Tablet, 100 MG PO BID, (Reported) Multivit-Min/FA/Lycopene/Lut 1 Each Tablet, 1 TAB PO DAILY, (Reported) [place] 3 Polyunsat Fatty Acids 1,000 Mg Cap, 1,000 MG PO DAILY, (Reported) Pantoprazole Sodium 40 Mg Tablet.dr, 40 MG PO DAILY, (Reported) Risperidone 0.5 Mg Tablet, 0.75 MG PO BID, (Reported) TAKE 1 & 1/2 (0.5MG) TABLET Sertraline HCl 50 Mg Tablet, 50 MG PO 1600, (Reported) Spironolactone 25 Mg Tablet, 25 MG PO BID, (Reported) Warfarin Sodium 2.5 Mg Tablet, 1.25 MG PO MoFr@2100, (Reported) TAKES 1/2 (2.5MG) TABLET Warfarin Sodium 2.5 Mg Tablet, 2.5 MG PO SuTuWeThSa@2100, (Reported) Patient Home Medication List Home Medication List Reviewed: Yes Review of Systems Review of Systems Constitutional: see HPI EENTM: see HPI Respiratory: no symptoms reported Cardiovascular: no symptoms reported Genitourinary: see HPI, incontinence Musculoskeletal: no symptoms reported Skin: no symptoms reported Psychiatric/Neurological: No Symptoms Reported Past Hsbjios-Iblyhv-Hkojxu Hx Patient Social History 2nd Hand Smoke Exposure: No Recent Foreign Travel: No Contact w/Someone Who Travel: No Recent Infectious Disease Expo: No Recent Hopitalizations: No Immunizations Up To Date Tetanus Booster (TDap): More than 5yrs PED Vaccines UTD: No Date of Pneumonia Vaccine: May 31, 2016 Date of Influenza Vaccine: May 31, 2015 Seasonal Allergies Seasonal Allergies: No Past Medical History Surgeries: Yes CABG Respiratory: Yes Pneumonia Currently Using CPAP: No Currently Using BIPAP: No Cardiac: Yes (PACE MAKER) Atrial Fibrillation, Coronary Artery Disease, Heart Attack Neurological: Yes (PARKINSON) Dementia, Parkinson's Disease Reproductive Disorders: No Sexually Transmitted Disease: No HIV/AIDS: No Genitourinary: Yes Kidney Stones, Renal Failure Gastrointestinal: No Musculoskeletal: Yes Arthritis Endocrine: No HEENT: Yes Cataract Hearing Impairment: Denies Cancer: No Psychosocial: Yes Sleep Difficulties, Anxiety Integumentary: No Blood Disorders: No Family Medical History Hypertension 19 FATHER 19 MOTHER Osteoporosis Pneumococcal pneumonia G8 BROTHER, Physical Exam Vital Signs Vital Signs - First Documented 05/03/19 13:05 Pulse 73 Resp 20 B/P (MAP) 116/77 (90) O2 Delivery Room Air Capillary Refill : Less Than 3 Seconds Height, Weight, BMI Height: 5'8.00" Weight: 200lbs. 0.0oz. 90.032814od; 31.0 BMI Method:Stated General Appearance: WD/WN, no apparent distress Respiratory: no respiratory distress, no accessory muscle use Gastrointestinal: normal bowel sounds, non tender Neurologic/Psychiatric: alert, normal mood/affect, oriented x 3 Skin: normal color, warm/dry Progress/Results/Core Measures Suspected Sepsis Recent Fever Within 48 Hours: No Infection Criteria Present: None New/Unexplained Altered Menta: No Sepsis Screen: No Definite Risk SIRS Temperature: Pulse: 73 Respiratory Rate: 20 Laboratory Tests 05/03/19 13:18: White Blood Count 6.6 Blood Pressure 116 /77 Mean: 90 Laboratory Tests 05/03/19 13:18: Creatinine 1.57H, INR Comment 3.0H, Platelet Count 141 Results/Orders Lab Results Laboratory Tests Test 05/03/19 13:18 Range/Units White Blood Count 6.6 4.3-11.0 10^3/uL Red Blood Count 3.98 L 4.35-5.85 10^6/uL Hemoglobin 13.0 L 13.3-17.7 G/DL Hematocrit 38 L 40-54 % Mean Corpuscular Volume 96 80-99 FL Mean Corpuscular Hemoglobin 33 25-34 PG Mean Corpuscular Hemoglobin Concent 34 32-36 G/DL Red Cell Distribution Width 13.0 10.0-14.5 % Platelet Count 141 130-400 10^3/uL Mean Platelet Volume 12.2 H 7.4-10.4 FL Neutrophils (%) (Auto) 70 42-75 % Lymphocytes (%) (Auto) 12 12-44 % Monocytes (%) (Auto) 15 H 0-12 % Eosinophils (%) (Auto) 4 0-10 % Basophils (%) (Auto) 0 0-10 % Neutrophils # (Auto) 4.6 1.8-7.8 X 10^3 Lymphocytes # (Auto) 0.8 L 1.0-4.0 X 10^3 Monocytes # (Auto) 1.0 0.0-1.0 X 10^3 Eosinophils # (Auto) 0.3 0.0-0.3 10^3/uL Basophils # (Auto) 0.0 0.0-0.1 10^3/uL Prothrombin Time 32.2 H 12.2-14.7 SEC INR Comment 3.0 H 0.8-1.4 Urine Color YELLOW Urine Clarity CLEAR Urine pH 6.5 5-9 Urine Specific [place] 1.010 L 1.016-1.022 Urine Protein 1+ H NEGATIVE Urine Glucose (UA) NEGATIVE NEGATIVE Urine Ketones NEGATIVE NEGATIVE Urine Nitrite NEGATIVE NEGATIVE Urine Bilirubin NEGATIVE NEGATIVE Urine Urobilinogen NORMAL NORMAL MG/DL Urine Leukocyte Esterase NEGATIVE NEGATIVE Urine RBC (Auto) NEGATIVE NEGATIVE Urine RBC 2-5 H /HPF Urine WBC 2-5 /HPF Urine Crystals NONE /LPF Urine Bacteria TRACE /HPF Urine Casts PRESENT /LPF Urine Hyaline Casts 10-25 H /LPF Urine Mucus NEGATIVE /LPF Urine Culture Indicated NO Sodium Level 137 135-145 MMOL/L Potassium Level 4.1 3.6-5.0 MMOL/L Chloride Level 101 98-107 MMOL/L Carbon Dioxide Level 25 21-32 MMOL/L Anion Gap 11 5-14 MMOL/L Blood Urea Nitrogen 21 H 7-18 MG/DL Creatinine 1.57 H 0.60-1.30 MG/DL Estimat Glomerular Filtration Rate 42 BUN/Creatinine Ratio 13 Glucose Level 107 H 70-105 MG/DL Calcium Level 9.6 8.5-10.1 MG/DL My Orders Orders - NIA SELLERS APRN Lidocaine 2% (Urojet) (Xylocaine Urojet) (05/03/19 13:15) Cbc With Automated Diff (05/03/19 13:01) Basic Metabolic Panel (05/03/19 13:01) Ua Culture If Indicated (05/03/19 13:01) Lemus Cath (05/03/19 13:01) Protime With Inr (05/03/19 13:26) Ns Iv 500 Ml (Sodium Chloride 0.9%) (05/03/19 14:00) Medications Given in ED Current Medications Medications Dose Ordered Sig/Hipolito Route Start Time Stop Time Status Last Admin Dose Admin Lidocaine HCl 10 ml ONCE ONCE TOP 05/03/19 13:15 05/03/19 13:16 DC 05/03/19 13:29 10 ML Vital Signs/I&O 05/03/19 13:05 Pulse 73 Resp 20 B/P (MAP) 116/77 (90) O2 Delivery Room Air Capillary Refill : Less Than 3 Seconds Blood Pressure Mean: 90 Departure Communication (Admissions) patient had about 450-500 mL of clear yellow urine output upon insertion of Lemus catheter. We will discharge home with Lemus catheter in place, follow up with Dr. Julian or primary care. Impression Primary Impression: Urinary retention Additional Impression: Chronic renal insufficiency Qualified Codes: N18.9 - Chronic kidney disease, unspecified Disposition: HOME, SELF-CARE Condition: Stable Departure-Patient Inst. Decision time for Depature: 14:01 Referrals: JAZIEL PRATER MD (PCP/Family) Primary Care Physician FAITH STEWART MD Patient Instructions: Urinary Retention Add. Discharge Instructions: 1. Return to ER for any concerns 2. Follow-up with your doctor next week. Call Dr. Stewart to make an appointment to be seen for follow-up. Leave the catheter in place to follow up with him, preferably for about one week. If it takes longer than that you can follow-up with primary care to have it removed as well. 3. All discharge instructions reviewed with patient and/or family. Voiced understanding. NIA SELLERS COMMUNITY REPRESENTATIVE May 03, 2019 13:26
[2019-05-03 13:31] LABS: BILIRUBIN,URINE NEGATIVE (NEGATIVE); CLARITY,URINE CLEAR; COLOR,URINE YELLOW; GLUCOSE, URINE (UA) NEGATIVE (NEGATIVE); KETONES,URINE NEGATIVE (NEGATIVE); LEUKOCYTE ESTERASE ,URINE NEGATIVE (NEGATIVE); NITRITE,URINE NEGATIVE (NEGATIVE); PH,URINE 6.5 (5-9); PROTEIN,URINE 1+ (NEGATIVE); UROBILINOGEN,URINE NORMAL (NORMAL)
[2019-05-03 13:35] LABS: BASOPHILS % (AUTO) 0 % (0-10); EOSINOPHILS # (AUTO) 0.3 10^3/uL (0.0-0.3); EOSINOPHILS % (AUTO) 4 % (0-10); HEMATOCRIT 38 % (40-54); LYMPHOCYTES # (AUTO) 0.8 X 10^3 (1.0-4.0); LYMPHOCYTES % (AUTO) 12 % (12-44); MEAN CORPUSCULAR HEMOGLOBIN 33 PG (25-34); MEAN CORPUSCULAR HGB CONC 34 G/DL (32-36); MEAN CORPUSCULAR VOLUME 96 FL (80-99); MEAN PLATELET VOLUME 12.2 FL (7.4-10.4); MONOCYTES % (AUTO) 15 % (0-12); NEUTROPHILS # (AUTO) 4.6 X 10^3 (1.8-7.8); NEUTROPHILS % (AUTO) 70 % (42-75); PLATELET COUNT 141 10^3/uL (130-400); WHITE BLOOD COUNT 6.6 10^3/uL (4.3-11.0)
[2019-05-03 13:51] LABS: BACTERIA,URINE TRACE /HPF; CALCIUM 9.6 MG/DL (8.5-10.1); CREATININE SERUM 1.57 MG/DL (0.60-1.30); POTASSIUM 4.1 MMOL/L (3.6-5.0); PROTHROMBIN TIME PATIENT 32.2 SEC (12.2-14.7)
[2019-05-03] MEDS ORDERED: NS IV 500 ML 500 ML IV SCH (14:00)
[2019-05-03 14:55] VITALS: BP 110/80
== END 2019-05-03 14:55 | disposition home or self-care (01) ==
LOC: EDUNIT# 12:58 → ER 12:59
DX: N18.9 Chronic kidney disease, unspecified (principal); R33.9 Retention of urine, unspecified; I48.91 Unspecified atrial fibrillation; I25.2 Old myocardial infarction; I25.10 Atherosclerotic heart disease of native coronary artery without angina pectoris; G20 Parkinson's disease; F02.80 Dementia in other diseases classified elsewhere, unspecified severity, without behavioral disturbance, psychotic disturbance, mood disturbance, and anxiety; F41.9 Anxiety disorder, unspecified; Z95.0 Presence of cardiac pacemaker; Z87.01 Personal history of pneumonia (recurrent); Z79.82 Long term (current) use of aspirin; Z79.01 Long term (current) use of anticoagulants; Z95.1 Presence of aortocoronary bypass graft; Z82.49 Family history of ischemic heart disease and other diseases of the circulatory system
CPT/HCPCS: 36415; 51702; 80048; 81000; 85025; 85610

== ENCOUNTER 2019-05-17 14:08 | Outpatient (RCR) | payer MEDICARE, OTHER ==
[2019-05-17 14:40] LABS: INR 3.6 (0.8-1.4); PROTHROMBIN TIME PATIENT 37.8 SEC (12.2-14.7)
[2019-05-19] MEDS ORDERED: CEFD300C3 PO (12:59)
== END 2019-08-15 | disposition home or self-care (01) ==
LOC: LAB 14:08
PROVIDERS: ATTEND Nurse Practitioner Family
DX: Z51.81 Encounter for therapeutic drug level monitoring (principal); Z79.01 Long term (current) use of anticoagulants
CPT/HCPCS: 36415; 85610

== ENCOUNTER 2019-05-19 11:24 | Emergency (ER) | payer MEDICARE, OTHER ==
[~2019-05-19] VITALS: Ht 170 cm; Wt 90.0 kg
[2019-05-19] MEDS ORDERED: LIDOCAINE UROJET 2% GEL 10 ML PKG TOP ONE (12:00)
--- NOTE | 2019-05-19 12:02 | ED GU-Female ---
General Chief Complaint: - Urinary Stated Complaint: TROUBLE URINATING Nursing Triage Note: PT to triage via W/C with C/O decreased urination since 1700 yesterday, 05/18/19. Pt states he was here 2 weeks ago with same issue, got a jimenez catheter inserted and just got it removed 05/17/19. Reports he urinated that night but hasn't had a "good flow" since. Nursing Sepsis Screen: No Definite Risk Source: patient Exam Limitations: no limitations History of Present Illness Date Seen by Provider: May 19, 2019 Time Seen by Provider: 12:00 Initial Comments Demented gentleman brought to ER by his by private vehicle with urinary retention, reduced urine output since yesterday, had his Jimenez catheter removed 2 days ago. Timing/Duration: just prior to arrival Severity/Quality: moderate Radiation: none Activities at Onset: none Prior Genitourinary Problems: none Associated Symptoms: denies symptoms Allergies and Home Medications Allergies Coded Allergies: No Known Drug Allergies (Unverified , 11/18/12) Home Medications Aspirin 81 Mg Tablet.dr, 81 MG PO DAILY, (Reported) Atorvastatin Calcium 40 Mg Tablet, 40 MG PO HS, (Reported) Calcium/Magnesium/Zinc 1 Each Tablet, 1 TAB PO DAILY, (Reported) Furosemide 40 Mg Tablet, 40 MG PO TuThSa, (Reported) Metoprolol Tartrate 100 Mg Tablet, 100 MG PO BID, (Reported) Multivit-Min/FA/Lycopene/Lut 1 Each Tablet, 1 TAB PO DAILY, (Reported) [place] 3 Polyunsat Fatty Acids 1,000 Mg Cap, 1,000 MG PO DAILY, (Reported) Pantoprazole Sodium 40 Mg Tablet.dr, 40 MG PO DAILY, (Reported) Risperidone 0.5 Mg Tablet, 0.75 MG PO BID, (Reported) TAKE 1 & 1/2 (0.5MG) TABLET Sertraline HCl 50 Mg Tablet, 50 MG PO 1600, (Reported) Spironolactone 25 Mg Tablet, 25 MG PO BID, (Reported) Warfarin Sodium 2.5 Mg Tablet, 1.25 MG PO MoFr@2100, (Reported) TAKES 1/2 (2.5MG) TABLET Warfarin Sodium 2.5 Mg Tablet, 2.5 MG PO SuTuWeThSa@2100, (Reported) Patient Home Medication List Home Medication List Reviewed: Yes Review of Systems Review of Systems Constitutional: see HPI EENTM: see HPI Respiratory: no symptoms reported Genitourinary: see HPI Musculoskeletal: no symptoms reported Skin: no symptoms reported Psychiatric/Neurological: No Symptoms Reported Endocrine: No Symptoms Reported Hematologic/Lymphatic: No Symptoms Reported Past Hjexehq-Zdgahm-Jejadq Hx Patient Social History Alcohol Use: Denies Use Recreational Drug Use: No Smoking Status: Never a Smoker 2nd Hand Smoke Exposure: No Recent Foreign Travel: No Contact w/Someone Who Travel: No Recent Infectious Disease Expo: No Recent Hopitalizations: No Physical Abuse: No Sexual Abuse: No Mistreated: No Fear: No Immunizations Up To Date Tetanus Booster (TDap): More than 5yrs PED Vaccines UTD: No Date of Pneumonia Vaccine: May 31, 2016 Date of Influenza Vaccine: May 31, 2015 Seasonal Allergies Seasonal Allergies: No Past Medical History Surgeries: Yes CABG Respiratory: Yes Pneumonia Currently Using CPAP: No Currently Using BIPAP: No Cardiac: Yes (PACE MAKER) Atrial Fibrillation, Coronary Artery Disease, Heart Attack Neurological: Yes (PARKINSON) Dementia, Parkinson's Disease Reproductive Disorders: No Sexually Transmitted Disease: No HIV/AIDS: No Genitourinary: Yes Kidney Stones, Renal Failure Gastrointestinal: No Musculoskeletal: Yes Arthritis Endocrine: No HEENT: Yes Cataract Hearing Impairment: Denies Cancer: No Psychosocial: Yes Sleep Difficulties, Anxiety Integumentary: No Blood Disorders: No Family Medical History Hypertension 19 FATHER 19 MOTHER Osteoporosis Pneumococcal pneumonia G8 BROTHER, Physical Exam Vital Signs Vital Signs - First Documented 05/19/19 11:33 Temp 35.9 Pulse 76 Resp 20 B/P (MAP) 114/64 (81) Pulse Ox 98 O2 Delivery Room Air Capillary Refill : Less Than 3 Seconds Height, Weight, BMI Height: 5'8.00" Weight: 200lbs. 0.0oz. [id number]; 31.00 BMI Method:Stated General Appearance: WD/WN, no apparent distress HEENT: PERRL/EOMI, normal ENT inspection Respiratory: no respiratory distress Gastrointestinal: normal bowel sounds, soft, tenderness (suprapubic) Extremities: normal range of motion, non-tender Neurologic/Psychiatric: alert Skin: normal color, warm/dry Progress/Results/Core Measures Suspected Sepsis Recent Fever Within 48 Hours: No Infection Criteria Present: None New/Unexplained Altered Menta: No Sepsis Screen: No Definite Risk SIRS Temperature: Pulse: 76 Respiratory Rate: 20 Blood Pressure 114 /64 Mean: 81 Results/Orders Lab Results Laboratory Tests Test 05/19/19 12:15 Range/Units Urine Color YELLOW Urine Clarity VERY CLOUDY H Urine pH 6.5 5-9 Urine Specific [place] 1.015 L 1.016-1.022 Urine Protein 1+ H NEGATIVE Urine Glucose (UA) NEGATIVE NEGATIVE Urine Ketones NEGATIVE NEGATIVE Urine Nitrite NEGATIVE NEGATIVE Urine Bilirubin NEGATIVE NEGATIVE Urine Urobilinogen NORMAL NORMAL MG/DL Urine Leukocyte Esterase 3+ H NEGATIVE Urine RBC (Auto) 4+ H NEGATIVE Urine RBC NONE /HPF Urine WBC >100 H /HPF Urine Squamous Epithelial Cells NONE /HPF Urine Crystals NONE /LPF Urine Bacteria LARGE H /HPF Urine Casts NONE /LPF Urine Mucus NEGATIVE /LPF Urine Culture Indicated YES My Orders Orders - NIA SELLERS APRN Jimenez Cath (05/19/19 11:49) Ua Culture If Indicated (05/19/19 11:49) Lidocaine 2% (Urojet) (Xylocaine Urojet) (05/19/19 12:00) Jimenez Cath (05/19/19 11:59) Urine Culture (05/19/19 12:15) Medications Given in ED Current Medications Medications Dose Ordered Sig/Hipolito Route Start Time Stop Time Status Last Admin Dose Admin Lidocaine HCl 10 ml ONCE ONCE TOP 05/19/19 12:00 05/19/19 12:01 DC 05/19/19 12:04 10 ML Vital Signs/I&O 05/19/19 11:33 Temp 35.9 Pulse 76 Resp 20 B/P (MAP) 114/64 (81) Pulse Ox 98 O2 Delivery Room Air Capillary Refill : Less Than 3 Seconds Blood Pressure Mean: 81 Departure Communication (Admissions) Bladder scan revealed 600milliliters in the bladder, Jimenez catheter to be reinserted. Impression Primary Impression: Urinary retention Disposition: 01 HOME, SELF-CARE Condition: Stable Departure-Patient Inst. Decision time for Depature: 12:02 Referrals: JAZIEL PRATER MD (PCP/Family) Primary Care Physician Patient Instructions: Urinary Tract Infection, Adult (DC) Add. Discharge Instructions: 1. Return to ER for any concerns 2. Antibiotics as directed 3. Follow-up with Dr. Joshi All discharge instructions reviewed with patient and/or family. Voiced understanding. Scripts Cefdinir (Cefdinir) 300 Mg Capsule 300 MG PO BID, #20 CAP 0 Refills Prov: NIA SELLERS APRN 05/19/19 NIA SELLERS APRN May 19, 2019 12:02
[2019-05-19 12:34] LABS: BILIRUBIN,URINE NEGATIVE (NEGATIVE); CLARITY,URINE VERY CLOUDY; COLOR,URINE YELLOW; GLUCOSE, URINE (UA) NEGATIVE (NEGATIVE); KETONES,URINE NEGATIVE (NEGATIVE); LEUKOCYTE ESTERASE ,URINE 3+ (NEGATIVE); NITRITE,URINE NEGATIVE (NEGATIVE); PH,URINE 6.5 (5-9); PROTEIN,URINE 1+ (NEGATIVE); UROBILINOGEN,URINE NORMAL (NORMAL)
[2019-05-19 12:55] LABS: BACTERIA,URINE LARGE /HPF; WBC,URINE >100 /HPF
[2019-05-19] MEDS ORDERED: CEFD300C3 PO (12:59)
[2019-05-19] MEDS ORDERED: cefTRIAXone 1,000 MG/2.86 ml vial (IM ONLY) IM SCH (13:00)
[2019-05-19] MEDS ORDERED: LIDOCAINE 1% INJ 20 ML 20 ML VIAL INJ ONE (13:00)
[2019-05-19 13:20] VITALS: BP 136/67
== END 2019-05-19 13:20 | disposition home or self-care (01) ==
LOC: EDUNIT# 11:24 → ER 11:24
DX: R33.9 Retention of urine, unspecified (principal); I48.91 Unspecified atrial fibrillation; F41.9 Anxiety disorder, unspecified; I25.2 Old myocardial infarction; I25.10 Atherosclerotic heart disease of native coronary artery without angina pectoris; G20 Parkinson's disease; F02.80 Dementia in other diseases classified elsewhere, unspecified severity, without behavioral disturbance, psychotic disturbance, mood disturbance, and anxiety; Z95.0 Presence of cardiac pacemaker; Z87.442 Personal history of urinary calculi; Z79.82 Long term (current) use of aspirin; Z79.01 Long term (current) use of anticoagulants; Z95.1 Presence of aortocoronary bypass graft; Z82.49 Family history of ischemic heart disease and other diseases of the circulatory system
CPT/HCPCS: 51702; 81000; 87077; 87088; 87186

== ENCOUNTER 2019-05-27 14:22 | Emergency (ER) | payer MEDICARE, OTHER ==
[~2019-05-27] VITALS: Ht 178 cm; Wt 86.0 kg
[~2019-05-27 14:22] MED LIST changes: +CEFD300C3 PO
[2019-05-27 14:54] LABS: BASOPHILS % (AUTO) 0 % (0-10); EOSINOPHILS # (AUTO) 0.3 10^3/uL (0.0-0.3); EOSINOPHILS % (AUTO) 4 % (0-10); HEMATOCRIT 36 % (40-54); HEMOGLOBIN 12.3 G/DL (13.3-17.7); LYMPHOCYTES # (AUTO) 0.9 X 10^3 (1.0-4.0); LYMPHOCYTES % (AUTO) 14 % (12-44); MEAN CORPUSCULAR HEMOGLOBIN 33 PG (25-34); MEAN CORPUSCULAR HGB CONC 34 G/DL (32-36); MEAN CORPUSCULAR VOLUME 96 FL (80-99); MEAN PLATELET VOLUME 11.9 FL (7.4-10.4); MONOCYTES # (AUTO) 0.8 X 10^3 (0.0-1.0); MONOCYTES % (AUTO) 13 % (0-12); NEUTROPHILS # (AUTO) 4.4 X 10^3 (1.8-7.8); NEUTROPHILS % (AUTO) 69 % (42-75); PLATELET COUNT 139 10^3/uL (130-400); RED CELL DISTRIBUTION WIDTH 13.5 % (10.0-14.5); WHITE BLOOD COUNT 6.3 10^3/uL (4.3-11.0)
[2019-05-27 15:17] LABS: ALBUMIN 3.7 GM/DL (3.2-4.5); BILIRUBIN,TOTAL 0.8 MG/DL (0.1-1.0); CREATININE SERUM 1.72 MG/DL (0.60-1.30); POTASSIUM 4.3 MMOL/L (3.6-5.0); TOTAL PROTEIN 6.4 GM/DL (6.4-8.2)
--- NOTE | 2019-05-27 15:43 | Diagnostic Imaging Report ---
PROCEDURE: CT abdomen and pelvis without contrast. TECHNIQUE: Multiple contiguous axial images were obtained through the abdomen and pelvis without the use of intravenous contrast. Auto Exposure Controls were utilized during the CT exam to meet ALARA standards for radiation dose reduction. INDICATION: Right-sided abdominal pain. COMPARISON: Correlation is made with prior CT from 11/17/2012. FINDINGS: The lung bases are clear. The heart appears enlarged. There are coronary arterial calcifications present. Cardiac pacemaker is in place. No discrete liver masses identified. There appear to be small stones layering within the gallbladder. No biliary ductal dilatation is seen. The pancreas and spleen are unremarkable. No adrenal mass is detected. Kidneys are unremarkable. No calculi or hydronephrosis is detected. Aorta and iliac vessels are heavily calcified but nonaneurysmal. No central retroperitoneal or mesenteric lymphadenopathy is identified. The small and large bowel loops appear to be normal caliber. There is no obstruction. There is diverticulosis of the sigmoid but no evidence of acute diverticulitis. There is no free fluid or loculated fluid collection. No free air is seen. Unopacified bladder is unremarkable. Prostate is not enlarged. No pelvic lymphadenopathy is seen. The bony structures are nonacute. IMPRESSION: 1. Uncomplicated diverticulosis. 2. No acute feature in the abdomen or pelvis is identified. Dictated by: Dictated on workstation # [id number]
--- NOTE | 2019-05-27 15:49 | ED Abdominal Pain ---
General Chief Complaint: Abdominal/GI Problems Stated Complaint: BLADDER ISSUES Nursing Triage Note: THE PT IS ASSISTED TO THE ROOM BY WHEELCHAIR. NO DISTRESS IS SEEN ON ARRIVAL. LOC IS NORMAL FOR THIS PT WITH DEMENTIA. THE FAMILY STATES THAT THE PT MAY BE CONSTIPATED. Sepsis Screen: No Definite Risk Source of Information: Patient, Family History of Present Illness Date Seen by Provider: May 27, 2019 Time Seen by Provider: 15:45 Initial Comments Demented 84-year-old male brought to ER by his with reports of abdominal pain intermittent since this morning mostly right sided. She states that over the past few weeks he is been having some troubles with constipation which is a bit unusual for him. His last bowel movement was on Thursday of this week, she was planning to give him milk of magnesia tonight because that typically works well for him but because of the abdominal pain and decided to bring him here. He's had to have a Lemus catheter placed twice within the past month or 2 for urinary retention. His Lemus catheter has been subsequently removed and states that he's been urinating about every 4 hours normally for the past few days. No fevers or chills. Patient's dementia precludes him from contributing to history of present illness Timing/Duration: 1-2 Days, Intermittent Severity/Quality: Cramping Location: RUQ, RLQ Radiation: No Radiation Activities at Onset: None Associated Symptoms: Denies Symptoms Allergies and Home Medications Allergies Coded Allergies: No Known Drug Allergies (Unverified , 11/18/12) Home Medications Aspirin 81 Mg Tablet.dr, 81 MG PO DAILY, (Reported) Atorvastatin Calcium 40 Mg Tablet, 40 MG PO HS, (Reported) Calcium/Magnesium/Zinc 1 Each Tablet, 1 TAB PO DAILY, (Reported) Cefdinir 300 Mg Capsule, 300 MG PO BID Prescribed by: NIA SELLERS on 05/19/19 1259 Furosemide 40 Mg Tablet, 40 MG PO TuThSa, (Reported) Metoprolol Tartrate 100 Mg Tablet, 100 MG PO BID, (Reported) Multivit-Min/FA/Lycopene/Lut 1 Each Tablet, 1 TAB PO DAILY, (Reported) [place] 3 Polyunsat Fatty Acids 1,000 Mg Cap, 1,000 MG PO DAILY, (Reported) Pantoprazole Sodium 40 Mg Tablet.dr, 40 MG PO DAILY, (Reported) Risperidone 0.5 Mg Tablet, 0.75 MG PO BID, (Reported) TAKE 1 & 1/2 (0.5MG) TABLET Sertraline HCl 50 Mg Tablet, 50 MG PO 1600, (Reported) Spironolactone 25 Mg Tablet, 25 MG PO BID, (Reported) Warfarin Sodium 2.5 Mg Tablet, 1.25 MG PO MoFr@2100, (Reported) TAKES 1/2 (2.5MG) TABLET Warfarin Sodium 2.5 Mg Tablet, 2.5 MG PO SuTuWeThSa@2100, (Reported) Patient Home Medication List Home Medication List Reviewed: Yes Review of Systems Review of Systems Constitutional: see HPI EENTM: No Symptoms Reported Respiratory: No Symptoms Reported Cardiovascular: No Symptoms Reported Gastrointestinal: See HPI, Abdominal Pain, Constipated; Denies Vomiting Genitourinary: No Symptoms Reported Musculoskeletal: no symptoms reported Skin: no symptoms reported Psychiatric/Neurological: No Symptoms Reported Endocrine: No Symptoms Reported Past Kqhaghh-Gyphtr-Prevjc Hx Patient Social History 2nd Hand Smoke Exposure: No Recent Foreign Travel: No Contact w/Someone Who Travel: No Recent Infectious Disease Expo: No Recent Hopitalizations: No Physical Abuse: No Sexual Abuse: No Fear: No Immunizations Up To Date Tetanus Booster (TDap): More than 5yrs PED Vaccines UTD: No Date of Pneumonia Vaccine: May 31, 2016 Date of Influenza Vaccine: May 31, 2015 Seasonal Allergies Seasonal Allergies: No Past Medical History Surgeries: No CABG Respiratory: Yes Pneumonia Currently Using CPAP: No Currently Using BIPAP: No Cardiac: Yes (PACE MAKER) Atrial Fibrillation, Coronary Artery Disease, Heart Attack Neurological: Yes (PARKINSON) Dementia, Parkinson's Disease Reproductive Disorders: No Sexually Transmitted Disease: No HIV/AIDS: No Genitourinary: Yes Kidney Stones, Renal Failure Gastrointestinal: No Musculoskeletal: Yes Arthritis Endocrine: No HEENT: Yes Cataract Hearing Impairment: Denies Cancer: No Psychosocial: Yes Sleep Difficulties, Anxiety Integumentary: No Blood Disorders: No Family Medical History Hypertension 19 FATHER 19 MOTHER Osteoporosis Pneumococcal pneumonia G8 BROTHER, Physical Exam Vital Signs Vital Signs - First Documented 05/27/19 14:51 Temp 36.4 Pulse 86 B/P (MAP) 150/100 (117) Pulse Ox 97 Capillary Refill : Less Than 3 Seconds Height/Weight/BMI Height: 5'8.00" Weight: 200lbs. 0.0oz. 90.270531vg; 27.00 BMI Method:Stated General Appearance: WD/WN, no apparent distress HEENT: PERRL/EOMI Respiratory: no respiratory distress, no accessory muscle use Gastrointestinal: normal bowel sounds, non tender, soft; No tenderness (there is no abdominal tenderness to palpation and bowel sounds are normal) Neurologic/Psychiatric: alert, normal mood/affect, oriented x 3 Skin: normal color, warm/dry Progress/Results/Core Measures Results/Orders Lab Results Laboratory Tests Test 05/27/19 14:50 Range/Units White Blood Count 6.3 4.3-11.0 10^3/uL Red Blood Count 3.78 L 4.35-5.85 10^6/uL Hemoglobin 12.3 L 13.3-17.7 G/DL Hematocrit 36 L 40-54 % Mean Corpuscular Volume 96 80-99 FL Mean Corpuscular Hemoglobin 33 25-34 PG Mean Corpuscular Hemoglobin Concent 34 32-36 G/DL Red Cell Distribution Width 13.5 10.0-14.5 % Platelet Count 139 130-400 10^3/uL Mean Platelet Volume 11.9 H 7.4-10.4 FL Neutrophils (%) (Auto) 69 42-75 % Lymphocytes (%) (Auto) 14 12-44 % Monocytes (%) (Auto) 13 H 0-12 % Eosinophils (%) (Auto) 4 0-10 % Basophils (%) (Auto) 0 0-10 % Neutrophils # (Auto) 4.4 1.8-7.8 X 10^3 Lymphocytes # (Auto) 0.9 L 1.0-4.0 X 10^3 Monocytes # (Auto) 0.8 0.0-1.0 X 10^3 Eosinophils # (Auto) 0.3 0.0-0.3 10^3/uL Basophils # (Auto) 0.0 0.0-0.1 10^3/uL Sodium Level 137 135-145 MMOL/L Potassium Level 4.3 3.6-5.0 MMOL/L Chloride Level 104 98-107 MMOL/L Carbon Dioxide Level 24 21-32 MMOL/L Anion Gap 9 5-14 MMOL/L Blood Urea Nitrogen 22 H 7-18 MG/DL Creatinine 1.72 H 0.60-1.30 MG/DL Estimat Glomerular Filtration Rate 38 BUN/Creatinine Ratio 13 Glucose Level 95 70-105 MG/DL Calcium Level 9.0 8.5-10.1 MG/DL Corrected Calcium 9.2 8.5-10.1 MG/DL Total Bilirubin 0.8 0.1-1.0 MG/DL Aspartate Amino Transf (AST/SGOT) 41 H 5-34 U/L Alanine Aminotransferase (ALT/SGPT) 31 0-55 U/L Alkaline Phosphatase 118 40-136 U/L Total Protein 6.4 6.4-8.2 GM/DL Albumin 3.7 3.2-4.5 GM/DL My Orders Orders - NIA SELLERS APRN Cbc With Automated Diff (05/27/19 14:38) Comprehensive Metabolic Panel (05/27/19 14:38) Ct Abdomen/Pelvis Wo (05/27/19 14:38) Vital Signs/I&O 05/27/19 14:51 Temp 36.4 Pulse 86 B/P (MAP) 150/100 (117) Pulse Ox 97 Blood Pressure Mean: 117 Departure Impression Primary Impression: Constipation Qualified Codes: K59.00 - Constipation, unspecified Disposition: HOME, SELF-CARE Condition: Stable Departure-Patient Inst. Decision time for Depature: 15:49 Referrals: JAZIEL PRATER MD (PCP/Family) Primary Care Physician Patient Instructions: Constipation, Adult (DC) Add. Discharge Instructions: All discharge instructions reviewed with patient and/or family. Voiced understanding. NIA SELLERS APRN May 27, 2019 15:49
[2019-05-27 16:02] VITALS: BP 105/61
== END 2019-05-27 16:08 | disposition home or self-care (01) ==
LOC: EDUNIT# 14:22 → ER 14:23
DX: K59.00 Constipation, unspecified (principal); I25.10 Atherosclerotic heart disease of native coronary artery without angina pectoris; I25.2 Old myocardial infarction; I48.91 Unspecified atrial fibrillation; G20 Parkinson's disease; F02.80 Dementia in other diseases classified elsewhere, unspecified severity, without behavioral disturbance, psychotic disturbance, mood disturbance, and anxiety; F41.9 Anxiety disorder, unspecified; Z79.82 Long term (current) use of aspirin; Z87.442 Personal history of urinary calculi; Z79.01 Long term (current) use of anticoagulants; Z95.1 Presence of aortocoronary bypass graft; Z95.0 Presence of cardiac pacemaker; Z82.49 Family history of ischemic heart disease and other diseases of the circulatory system
CPT/HCPCS: 36415; 74176; 80053; 85025

== ENCOUNTER 2019-06-08 13:07 | Emergency (ER) | payer MEDICARE, OTHER ==
[~2019-06-08] VITALS: Ht 172 cm; Wt 90.9 kg
--- NOTE | 2019-06-08 13:30 | ED GU-Female ---
General Chief Complaint: - Urinary Stated Complaint: TROUBLE URINATING Nursing Triage Note: Pt to RM 7 with C/O burning urination. Pt here with who reports he last urinated last night around 2029. Pt recently has jimenez cath removed 05/26/19. Nursing Sepsis Screen: No Definite Risk Source: patient, spouse Exam Limitations: no limitations History of Present Illness Date Seen by Provider: Jun 08, 2019 Time Seen by Provider: 13:16 Initial Comments The patient presents to ER by private conveyance with his spouse and chief complaint of inability to micturate since 8:30 last night. He has long-standing history of urinary retention. He has had cystoscopy noting to have hypertrophy of the prostate by Dr. Julian, urology. He is on finasteride, tamsulosin. He is on a blood thinner secondary to atrial fibrillation and history of four-vessel CABG. He denies any pain fever chills nausea or diarrhea. They have an appointment with urology today. Allergies and Home Medications Allergies Coded Allergies: No Known Drug Allergies (Unverified , 11/18/12) Home Medications Aspirin 81 Mg Tablet.dr, 81 MG PO DAILY, (Reported) Atorvastatin Calcium 40 Mg Tablet, 40 MG PO HS, (Reported) Calcium/Magnesium/Zinc 1 Each Tablet, 1 TAB PO DAILY, (Reported) Cefdinir 300 Mg Capsule, 300 MG PO BID Prescribed by: NIA SELLERS on 05/19/19 1259 Furosemide 40 Mg Tablet, 40 MG PO TuThSa, (Reported) Metoprolol Tartrate 100 Mg Tablet, 100 MG PO BID, (Reported) Multivit-Min/FA/Lycopene/Lut 1 Each Tablet, 1 TAB PO DAILY, (Reported) [place] 3 Polyunsat Fatty Acids 1,000 Mg Cap, 1,000 MG PO DAILY, (Reported) Pantoprazole Sodium 40 Mg Tablet.dr, 40 MG PO DAILY, (Reported) Risperidone 0.5 Mg Tablet, 0.75 MG PO BID, (Reported) TAKE 1 & 1/2 (0.5MG) TABLET Sertraline HCl 50 Mg Tablet, 50 MG PO 1600, (Reported) Spironolactone 25 Mg Tablet, 25 MG PO BID, (Reported) Warfarin Sodium 2.5 Mg Tablet, 1.25 MG PO MoFr@2100, (Reported) TAKES 1/2 (2.5MG) TABLET Warfarin Sodium 2.5 Mg Tablet, 2.5 MG PO SuTuWeThSa@2100, (Reported) Patient Home Medication List Home Medication List Reviewed: Yes Review of Systems Review of Systems Constitutional: No chills, No diaphoresis EENTM: No ear discharge, No ear pain Respiratory: No cough, No short of breath Cardiovascular: No chest pain, No palpitations Gastrointestinal: No abdominal pain, No vomiting Past Vookwjs-Mctviu-Slhmic Hx Patient Social History Alcohol Use: Denies Use Recreational Drug Use: No Smoking Status: Never a Smoker 2nd Hand Smoke Exposure: No Recent Foreign Travel: No Contact w/Someone Who Travel: No Recent Infectious Disease Expo: No Recent Hopitalizations: No Immunizations Up To Date Tetanus Booster (TDap): More than 5yrs PED Vaccines UTD: No Date of Pneumonia Vaccine: May 31, 2016 Date of Influenza Vaccine: May 31, 2015 Seasonal Allergies Seasonal Allergies: No Past Medical History Surgeries: No CABG Respiratory: Yes Pneumonia Currently Using CPAP: No Currently Using BIPAP: No Cardiac: Yes (PACE MAKER) Atrial Fibrillation, Coronary Artery Disease, Heart Attack Neurological: Yes (PARKINSON) Dementia, Parkinson's Disease Reproductive Disorders: No Sexually Transmitted Disease: No HIV/AIDS: No Genitourinary: Yes Kidney Stones, Renal Failure Gastrointestinal: No Musculoskeletal: Yes Arthritis Endocrine: No HEENT: Yes Cataract Hearing Impairment: Denies Cancer: No Psychosocial: Yes Sleep Difficulties, Anxiety Integumentary: No Blood Disorders: No Family Medical History Hypertension 19 FATHER 19 MOTHER Osteoporosis Pneumococcal pneumonia G8 BROTHER, Physical Exam Vital Signs Vital Signs - First Documented 06/08/19 13:17 Temp 36.0 Pulse 64 Resp 18 B/P (MAP) 126/79 (95) Pulse Ox 98 Capillary Refill : Less Than 3 Seconds Height, Weight, BMI Height: 5'8.00" Weight: 200lbs. 0.0oz. 90.347525qr; 30.00 BMI Method:Stated General Appearance: WD/WN, no apparent distress HEENT: PERRL/EOMI, pharynx normal Neck: full range of motion, normal inspection Cardiovascular: normal peripheral pulses, regular rate, rhythm Respiratory: no respiratory distress, no accessory muscle use Gastrointestinal: normal bowel sounds, soft, no organomegaly, tenderness (suprapubic) Neurologic/Psychiatric: alert, normal mood/affect Progress/Results/Core Measures Suspected Sepsis Recent Fever Within 48 Hours: No Infection Criteria Present: None New/Unexplained Altered Menta: No Sepsis Screen: No Definite Risk SIRS Temperature: Pulse: 64 Respiratory Rate: 18 Laboratory Tests 06/08/19 13:35: White Blood Count 7.2 Blood Pressure 126 /79 Mean: 95 Laboratory Tests 06/08/19 13:35: Creatinine 1.72H, Platelet Count 120L, Total Bilirubin 1.2H Results/Orders Lab Results Laboratory Tests Test 06/08/19 13:35 06/08/19 13:59 Range/Units White Blood Count 7.2 4.3-11.0 10^3/uL Red Blood Count 3.93 L 4.35-5.85 10^6/uL Hemoglobin 13.0 L 13.3-17.7 G/DL Hematocrit 38 L 40-54 % Mean Corpuscular Volume 98 80-99 FL Mean Corpuscular Hemoglobin 33 25-34 PG Mean Corpuscular Hemoglobin Concent 34 32-36 G/DL Red Cell Distribution Width 13.7 10.0-14.5 % Platelet Count 120 L 130-400 10^3/uL Mean Platelet Volume 12.5 H 7.4-10.4 FL Neutrophils (%) (Auto) 70 42-75 % Lymphocytes (%) (Auto) 14 12-44 % Monocytes (%) (Auto) 13 H 0-12 % Eosinophils (%) (Auto) 2 0-10 % Basophils (%) (Auto) 0 0-10 % Neutrophils # (Auto) 5.1 1.8-7.8 X 10^3 Lymphocytes # (Auto) 1.0 1.0-4.0 X 10^3 Monocytes # (Auto) 1.0 0.0-1.0 X 10^3 Eosinophils # (Auto) 0.2 0.0-0.3 10^3/uL Basophils # (Auto) 0.0 0.0-0.1 10^3/uL Sodium Level 136 135-145 MMOL/L Potassium Level 4.5 3.6-5.0 MMOL/L Chloride Level 100 98-107 MMOL/L Carbon Dioxide Level 23 21-32 MMOL/L Anion Gap 13 5-14 MMOL/L Blood Urea Nitrogen 18 7-18 MG/DL Creatinine 1.72 H 0.60-1.30 MG/DL Estimat Glomerular Filtration Rate 38 BUN/Creatinine Ratio 10 Glucose Level 95 70-105 MG/DL Calcium Level 9.6 8.5-10.1 MG/DL Corrected Calcium 9.7 8.5-10.1 MG/DL Total Bilirubin 1.2 H 0.1-1.0 MG/DL Aspartate Amino Transf (AST/SGOT) 31 5-34 U/L Alanine Aminotransferase (ALT/SGPT) 23 0-55 U/L Alkaline Phosphatase 117 40-136 U/L Total Protein 7.1 6.4-8.2 GM/DL Albumin 3.9 3.2-4.5 GM/DL Urine Color YELLOW Urine Clarity CLEAR Urine pH 5 5-9 Urine Specific [place] 1.015 L 1.016-1.022 Urine Protein NEGATIVE NEGATIVE Urine Glucose (UA) NEGATIVE NEGATIVE Urine Ketones NEGATIVE NEGATIVE Urine Nitrite NEGATIVE NEGATIVE Urine Bilirubin NEGATIVE NEGATIVE Urine Urobilinogen NORMAL NORMAL MG/DL Urine Leukocyte Esterase NEGATIVE NEGATIVE Urine RBC (Auto) NEGATIVE NEGATIVE Urine RBC NONE /HPF Urine WBC NONE /HPF Urine Squamous Epithelial Cells RARE /HPF Urine Crystals NONE /LPF Urine Bacteria NEGATIVE /HPF Urine Casts PRESENT /LPF Urine Hyaline Casts 25-50 H /LPF Urine Mucus SMALL H /LPF Urine Culture Indicated NO My Orders Orders - AMBERLY BASS Bladder Scan (06/08/19 13:22) Cbc With Automated Diff (06/08/19 13:22) Comprehensive Metabolic Panel (06/08/19 13:22) Ua Culture If Indicated (06/08/19 13:22) Vital Signs/I&O 06/08/19 13:17 Temp 36.0 Pulse 64 Resp 18 B/P (MAP) 126/79 (95) Pulse Ox 98 Capillary Refill : Less Than 3 Seconds Blood Pressure Mean: 95 Progress Note : Time: 13:30 Progress Note Plan to obtain labs to check kidney function as well as a white count and bladder scan volume. If it is excessive we will place a Jimenez catheter and sent back to Dr. Stewart. Consults Consults : Consulting Physician: FAITH STEWART MD Consults Notes Discussed the case and he would like the patient to keep scheduled appointment today. Departure Impression Primary Impression: Urinary retention due to benign prostatic hyperplasia Disposition: 01 HOME, SELF-CARE Condition: Improved Departure-Patient Inst. Decision time for Depature: 14:33 Referrals: JAZIEL PRATER MD (PCP/Family) Primary Care Physician FAITH STEWART MD Patient Instructions: Urinary Retention (DC) Add. Discharge Instructions: Follow-up with the urologist today at your scheduled appointment. All discharge instructions reviewed with patient and/or family. Voiced understanding. AMBERLY BASS Jun 08, 2019 13:30
[2019-06-08 13:41] LABS: BASOPHILS % (AUTO) 0 % (0-10); EOSINOPHILS # (AUTO) 0.2 10^3/uL (0.0-0.3); EOSINOPHILS % (AUTO) 2 % (0-10); HEMATOCRIT 38 % (40-54); LYMPHOCYTES % (AUTO) 14 % (12-44); MEAN CORPUSCULAR HEMOGLOBIN 33 PG (25-34); MEAN CORPUSCULAR HGB CONC 34 G/DL (32-36); MEAN CORPUSCULAR VOLUME 98 FL (80-99); MEAN PLATELET VOLUME 12.5 FL (7.4-10.4); MONOCYTES % (AUTO) 13 % (0-12); NEUTROPHILS # (AUTO) 5.1 X 10^3 (1.8-7.8); NEUTROPHILS % (AUTO) 70 % (42-75); PLATELET COUNT 120 10^3/uL (130-400); RED CELL DISTRIBUTION WIDTH 13.7 % (10.0-14.5); WHITE BLOOD COUNT 7.2 10^3/uL (4.3-11.0)
[2019-06-08 14:03] LABS: ALBUMIN 3.9 GM/DL (3.2-4.5); BILIRUBIN,TOTAL 1.2 MG/DL (0.1-1.0); CALCIUM 9.6 MG/DL (8.5-10.1); CREATININE SERUM 1.72 MG/DL (0.60-1.30); POTASSIUM 4.5 MMOL/L (3.6-5.0); TOTAL PROTEIN 7.1 GM/DL (6.4-8.2)
[2019-06-08 14:05] LABS: BILIRUBIN,URINE NEGATIVE (NEGATIVE); CLARITY,URINE CLEAR; COLOR,URINE YELLOW; GLUCOSE, URINE (UA) NEGATIVE (NEGATIVE); KETONES,URINE NEGATIVE (NEGATIVE); LEUKOCYTE ESTERASE ,URINE NEGATIVE (NEGATIVE); NITRITE,URINE NEGATIVE (NEGATIVE); PH,URINE 5 (5-9); PROTEIN,URINE NEGATIVE (NEGATIVE); UROBILINOGEN,URINE NORMAL (NORMAL)
[2019-06-08 14:25] LABS: BACTERIA,URINE NEGATIVE /HPF; HYALINE CASTS, URINE 25-50 /LPF; SQUAMOUS EPITHELIAL CELL,UR RARE /HPF
[2019-06-08 14:51] VITALS: BP 126/79
== END 2019-06-08 14:51 | disposition home or self-care (01) ==
LOC: EDUNIT# 13:07 → ER 13:09
DX: N40.1 Benign prostatic hyperplasia with lower urinary tract symptoms (principal); I48.91 Unspecified atrial fibrillation; I25.2 Old myocardial infarction; I25.10 Atherosclerotic heart disease of native coronary artery without angina pectoris; G20 Parkinson's disease; F02.80 Dementia in other diseases classified elsewhere, unspecified severity, without behavioral disturbance, psychotic disturbance, mood disturbance, and anxiety; F41.9 Anxiety disorder, unspecified; Z79.01 Long term (current) use of anticoagulants; Z87.442 Personal history of urinary calculi; Z95.0 Presence of cardiac pacemaker; Z95.1 Presence of aortocoronary bypass graft; Z79.82 Long term (current) use of aspirin; Z82.49 Family history of ischemic heart disease and other diseases of the circulatory system
CPT/HCPCS: 36415; 80053; 81000; 85025; 99283

== ENCOUNTER 2019-10-13 11:26 | Emergency (ER) | payer MEDICARE, OTHER ==
[~2019-10-13] VITALS: Ht 175 cm; Wt 77.0 kg
[~2019-10-13 11:26] MED LIST changes: -MEMA10TA22; +MEMA10TA57
--- NOTE | 2019-10-13 11:39 | ED Fall/Injury ---
General Chief Complaint: Trauma EMS/Air Arrival Activat Stated Complaint: FALL;HEAD INJ Nursing Triage Note: ARRIVED [facility]IA [facility] ET WAS FOUND ON THE FLOOR AT [facility] 1047 FROM AN UNWITTNESSED FALL. LAST WELL KNOWN TIME WAS THIS AM PRIOR TO THE FALL. STAFF AT THE SNF STATES HE HAS BEEN AGITATED THIS PAST WEEK AND THEY WONDER ABOUT A UTI. Source: EMS Exam Limitations: no limitations History of Present Illness Date Seen by Provider: Oct 13, 2019 Time Seen by Provider: 11:37 Initial Comments To ER by EMS from [facility] with reports of a fall. They state that he was found laying between his bed and the wall, there was no witnessed fall, unclear if he fell or laid himself in this position, they state that sometimes he will get down and lay on the floor and sleep. He is on warfarin for A. fib INR checked yesterday at 1.8. Demented her baseline. Agitated 2 weeks, half-way staff suspected UTI. Occurred: just prior to arrival Context: unknown Loss of Consciousness: unsure Allergies and Home Medications Allergies Coded Allergies: No Known Drug Allergies (Unverified , 11/18/12) Home Medications Aspirin 81 Mg Tablet.dr, 81 MG PO DAILY, (Reported) Atorvastatin Calcium 40 Mg Tablet, 40 MG PO HS, (Reported) Calcium/Magnesium/Zinc 1 Each Tablet, 1 TAB PO DAILY, (Reported) Cefdinir 300 Mg Capsule, 300 MG PO BID Prescribed by: NIA SELLERS on 05/19/19 1259 Cefuroxime Axetil 250 Mg Tablet, 250 MG PO BID Prescribed by: NIA SELLERS on 10/13/19 1253 Furosemide 40 Mg Tablet, 40 MG PO TuThSa, (Reported) Metoprolol Tartrate 100 Mg Tablet, 100 MG PO BID, (Reported) Multivit-Min/FA/Lycopene/Lut 1 Each Tablet, 1 TAB PO DAILY, (Reported) [place] 3 Polyunsat Fatty Acids 1,000 Mg Cap, 1,000 MG PO DAILY, (Reported) Pantoprazole Sodium 40 Mg Tablet.dr, 40 MG PO DAILY, (Reported) Risperidone 0.5 Mg Tablet, 0.75 MG PO BID, (Reported) TAKE 1 & 1/2 (0.5MG) TABLET Sertraline HCl 50 Mg Tablet, 50 MG PO 1600, (Reported) Spironolactone 25 Mg Tablet, 25 MG PO BID, (Reported) Warfarin Sodium 2.5 Mg Tablet, 1.25 MG PO MoFr@2100, (Reported) TAKES 1/2 (2.5MG) TABLET Warfarin Sodium 2.5 Mg Tablet, 2.5 MG PO SuTuWeThSa@2100, (Reported) Patient Home Medication List Home Medication List Reviewed: Yes Review of Systems Review of Systems Constitutional: see HPI, other (unable to obtain due to altered mental status/dementia) Past Lfqnknr-Vvaenm-Qzpfeo Hx Patient Social History Alcohol Use: Denies Use Recreational Drug Use: No Smoking Status: Unknown if Ever Smoked 2nd Hand Smoke Exposure: No Recent Foreign Travel: No Contact w/Someone Who Travel: No Recent Infectious Disease Expo: No Recent Hopitalizations: No Immunizations Up To Date Tetanus Booster (TDap): More than 5yrs PED Vaccines UTD: No Date of Pneumonia Vaccine: May 31, 2016 Date of Influenza Vaccine: May 31, 2015 Seasonal Allergies Seasonal Allergies: No Past Medical History Surgeries: No CABG Respiratory: Yes Pneumonia Currently Using CPAP: No Currently Using BIPAP: No Cardiac: Yes (PACE MAKER) Atrial Fibrillation, Coronary Artery Disease, Heart Attack Neurological: Yes (PARKINSON) Dementia, Parkinson's Disease Reproductive Disorders: No Sexually Transmitted Disease: No HIV/AIDS: No Genitourinary: Yes Kidney Stones, Renal Failure Gastrointestinal: No Musculoskeletal: Yes Arthritis Endocrine: No HEENT: Yes Cataract Hearing Impairment: Denies Cancer: No Psychosocial: Yes Sleep Difficulties, Anxiety Integumentary: No Blood Disorders: No Family Medical History Hypertension 19 FATHER 19 MOTHER Osteoporosis Pneumococcal pneumonia G8 BROTHER, Physical Exam Vital Signs Vital Signs - First Documented 10/13/19 11:28 Temp 35.8 Pulse 68 Resp 16 B/P (MAP) 108/60 (76) Pulse Ox 92 O2 Delivery Room Air Capillary Refill : Less Than 3 Seconds Height, Weight, BMI Height: 5'8.00" Weight: 200lbs. 0.0oz. 90.253659zb; 25.00 BMI Method:Stated General Appearance: WD/WN, no apparent distress, other (demented, keeps eyes closed, moans when touched anywhere.) HEENT: PERRL/EOMI, normal ENT inspection Respiratory: no respiratory distress, no accessory muscle use Gastrointestinal: normal bowel sounds, non tender Extremities: normal range of motion, non-tender Neurologic/Psychiatric: alert, normal mood/affect, oriented x 3 Skin: normal color, warm/dry [place] Coma Score Best Eye Response: (4) Open Spontaneously Best Verbal Response: (5) Oriented Best Motor Response: (6) Obeys Commands Agusto Total: 15 Progress/Results/Core Measures Results/Orders Lab Results Laboratory Tests Test 10/13/19 11:35 10/13/19 11:38 Range/Units White Blood Count 7.1 4.3-11.0 10^3/uL Red Blood Count 3.80 L 4.35-5.85 10^6/uL Hemoglobin 12.1 L 13.3-17.7 G/DL Hematocrit 37 L 40-54 % Mean Corpuscular Volume 96 80-99 FL Mean Corpuscular Hemoglobin 32 25-34 PG Mean Corpuscular Hemoglobin Concent 33 32-36 G/DL Red Cell Distribution Width 13.0 10.0-14.5 % Platelet Count 129 L 130-400 10^3/uL Mean Platelet Volume 12.7 H 7.4-10.4 FL Neutrophils (%) (Auto) 72 42-75 % Lymphocytes (%) (Auto) 13 12-44 % Monocytes (%) (Auto) 11 0-12 % Eosinophils (%) (Auto) 4 0-10 % Basophils (%) (Auto) 0 0-10 % Neutrophils # (Auto) 5.1 1.8-7.8 X 10^3 Lymphocytes # (Auto) 0.9 L 1.0-4.0 X 10^3 Monocytes # (Auto) 0.8 0.0-1.0 X 10^3 Eosinophils # (Auto) 0.3 0.0-0.3 10^3/uL Basophils # (Auto) 0.0 0.0-0.1 10^3/uL Prothrombin Time 20.8 H 12.2-14.7 SEC INR Comment 1.7 H 0.8-1.4 Sodium Level 136 135-145 MMOL/L Potassium Level 4.5 3.6-5.0 MMOL/L Chloride Level 100 98-107 MMOL/L Carbon Dioxide Level 25 21-32 MMOL/L Anion Gap 11 5-14 MMOL/L Blood Urea Nitrogen 29 H 7-18 MG/DL Creatinine 2.04 H 0.60-1.30 MG/DL Estimat Glomerular Filtration Rate 31 BUN/Creatinine Ratio 14 Glucose Level 104 70-105 MG/DL Calcium Level 9.2 8.5-10.1 MG/DL Urine Color YELLOW Urine Clarity CLEAR Urine pH 6.0 5-9 Urine Specific [place] 1.015 L 1.016-1.022 Urine Protein NEGATIVE NEGATIVE Urine Glucose (UA) NEGATIVE NEGATIVE Urine Ketones NEGATIVE NEGATIVE Urine Nitrite POSITIVE H NEGATIVE Urine Bilirubin NEGATIVE NEGATIVE Urine Urobilinogen 0.2 < = 1.0 MG/DL Urine Leukocyte Esterase 1+ H NEGATIVE Urine RBC (Auto) 1+ H NEGATIVE Urine RBC 10-25 H /HPF Urine WBC 10-25 H /HPF Urine Squamous Epithelial Cells NONE /HPF Urine Crystals NONE /LPF Urine Bacteria LARGE H /HPF Urine Casts PRESENT /LPF Urine Hyaline Casts 2-5 H /LPF Urine Mucus NEGATIVE /LPF Urine Culture Indicated YES My Orders Orders - NIA SELLERS APRN Cbc With Automated Diff (10/13/19 11:36) Basic Metabolic Panel (10/13/19 11:36) Ua Culture If Indicated (10/13/19 11:36) Straight Cath (Urinary) (10/13/19 11:36) Protime With Inr (10/13/19 11:36) Ct Head/Cervical Spine Wo (10/13/19 11:36) Chest 1 View, Ap/Pa Only (10/13/19 12:04) Pelvis With Left Hip 2-3 Views (10/13/19 11:36) Urine Culture (10/13/19 11:38) Ceftriaxone For Im Use (Rocephin For Im (10/13/19 13:00) Lidocaine 1% Inj 20 Ml (Xylocaine 1% Inj (10/13/19 13:00) Medications Given in ED Current Medications Medications Dose Ordered Sig/Hipolito Route Start Time Stop Time Status Last Admin Dose Admin Lidocaine HCl 2.1 ml ONCE ONCE INJ 10/13/19 13:00 10/13/19 13:01 DC 10/13/19 13:07 2.1 ML Vital Signs/I&O 10/13/19 11:28 Temp 35.8 Pulse 68 Resp 16 B/P (MAP) 108/60 (76) Pulse Ox 92 O2 Delivery Room Air Blood Pressure Mean: 76 Departure Impression Primary Impression: Chronic renal insufficiency Qualified Codes: N18.9 - Chronic kidney disease, unspecified Additional Impressions: UTI (urinary tract infection) Qualified Codes: N30.00 - Acute cystitis without hematuria Fall at half-way Disposition: HOME, SELF-CARE Condition: Stable Departure-Patient Inst. Decision time for Depature: 12:52 Referrals: JAZIEL PRATER MD (PCP/Family) Primary Care Physician Patient Instructions: Urinary Tract Infections in Adults Add. Discharge Instructions: 1. Antibiotics as directed starting tomorrow 2. Return to ER for any worsening 3. Follow-up with his doctor next week Encourage fluid intake. All discharge instructions reviewed with patient and/or family. Voiced understanding. Scripts Cefuroxime Axetil (Cefuroxime) 250 Mg Tablet 250 MG PO BID, #14 TAB Prov: NIA SELLERS APRN 10/13/19 NIA SELLERS APRN Oct 13, 2019 11:39
[2019-10-13 11:54] LABS: BASOPHILS % (AUTO) 0 % (0-10); EOSINOPHILS # (AUTO) 0.3 10^3/uL (0.0-0.3); EOSINOPHILS % (AUTO) 4 % (0-10); HEMATOCRIT 37 % (40-54); HEMOGLOBIN 12.1 G/DL (13.3-17.7); LYMPHOCYTES # (AUTO) 0.9 X 10^3 (1.0-4.0); LYMPHOCYTES % (AUTO) 13 % (12-44); MEAN CORPUSCULAR HEMOGLOBIN 32 PG (25-34); MEAN CORPUSCULAR HGB CONC 33 G/DL (32-36); MEAN CORPUSCULAR VOLUME 96 FL (80-99); MEAN PLATELET VOLUME 12.7 FL (7.4-10.4); MONOCYTES # (AUTO) 0.8 X 10^3 (0.0-1.0); MONOCYTES % (AUTO) 11 % (0-12); NEUTROPHILS # (AUTO) 5.1 X 10^3 (1.8-7.8); NEUTROPHILS % (AUTO) 72 % (42-75); PLATELET COUNT 129 10^3/uL (130-400); WHITE BLOOD COUNT 7.1 10^3/uL (4.3-11.0)
[2019-10-13 11:59] LABS: BILIRUBIN,URINE NEGATIVE (NEGATIVE); CLARITY,URINE CLEAR; COLOR,URINE YELLOW; GLUCOSE, URINE (UA) NEGATIVE (NEGATIVE); KETONES,URINE NEGATIVE (NEGATIVE); LEUKOCYTE ESTERASE ,URINE 1+ (NEGATIVE); NITRITE,URINE POSITIVE (NEGATIVE); PROTEIN,URINE NEGATIVE (NEGATIVE)
--- NOTE | 2019-10-13 12:09 | Diagnostic Imaging Report ---
EXAMINATION: CT head and CT cervical spine without contrast. TECHNIQUE: Multiple contiguous axial images were obtained through the brain and cervical spine without the use of intravenous contrast. Sagittal and coronal reformations through the cervical spine were then performed. All CT scans use one or more of the following dose optimizing techniques: automated exposure control, MA and/or KvP adjustment based on a patient size and exam type, or iterative reconstruction. HISTORY: Fall COMPARISON: 04/19/2019 FINDINGS: The zuniga-white matter differentiation is normal. No mass effect or midline shift. There is age related cerebral atrophy with ex vacuo dilation of the ventricles. Periventricular white matter hypoattenuation is in keeping with chronic small vessel ischemic changes. There is a septum cavum pellucidum. Basilar cisterns are patent. There are no intra- or extra-axial fluid collections. There is no intracranial hemorrhage. The orbits are normal. Paranasal sinuses are normal. Mastoid air cells are clear. No soft tissue abnormality is seen. No osseus lesions or fractures are seen. The alignment of the cervical spine is normal. No fracture is seen. Vertebral body heights are normal. The craniocervical junction is normal. There is disc height loss most pronounced at C3/C4. Multilevel facet and uncovertebral disease is present. There is no osseus spinal canal stenosis. No soft tissue abnormality is seen in the neck. Limited views of the superior thorax are normal. IMPRESSION: 1. No acute intracranial abnormality. 2. No cervical spine fracture. Dictated by: Dictated on workstation # [id number]
[2019-10-13 12:10] LABS: CALCIUM 9.2 MG/DL (8.5-10.1); CREATININE SERUM 2.04 MG/DL (0.60-1.30); POTASSIUM 4.5 MMOL/L (3.6-5.0)
[2019-10-13 12:11] LABS: INR 1.7 (0.8-1.4); PROTHROMBIN TIME PATIENT 20.8 SEC (12.2-14.7)
[2019-10-13 12:24] LABS: BACTERIA,URINE LARGE /HPF
--- NOTE | 2019-10-13 12:24 | Diagnostic Imaging Report ---
EXAMINATION: Pelvis and left hip at 12:08 p.m. INDICATION: Fell. Hip pain. A single AP view of the pelvis and AP and lateral views of the left hip were obtained. FINDINGS: There is no fracture, dislocation or acute bony abnormality evident. There is mild degenerative disease of both hip and sacroiliac joints. The degenerative changes seem similar to the prior exam of 11/17/2012. The soft tissues are unremarkable. Surgical clips are again seen on each side of the scrotum. IMPRESSION: 1. There is no evidence for an acute bony abnormality. 2. If clinical concern regarding an occult injury persists, then CT would be recommended for further study. Dictated by: Dictated on workstation # [id number]
--- NOTE | 2019-10-13 12:27 | Diagnostic Imaging Report ---
EXAMINATION: Supine AP chest at 12:13 p.m. INDICATION: Fell, hip pain. FINDINGS: The cardiomegaly, the sternotomy wires and surgical clips and a left-sided pacemaker seen on the prior exam of 04/19/2019 are again evident and not significantly changed. The small area of increased density in the right infrahilar region noted on the prior study is also no different. The lungs are generally clear. There is no sign of failure, pneumonia or pleural effusion. The mediastinum is not widened. The osseous structures are intact. IMPRESSION: There is no evidence for an acute cardiopulmonary abnormality. Dictated by: Dictated on workstation # [id number]
[2019-10-13] MEDS ORDERED: CEFU250T80 PO (12:53)
[2019-10-13] MEDS ORDERED: LIDOCAINE 1% INJ 20 ML 20 ML VIAL INJ ONE (13:00)
[2019-10-13] MEDS ORDERED: cefTRIAXone 1,000 MG/2.86 ml vial (IM ONLY) IM SCH (13:00)
[2019-10-13 13:10] VITALS: BP 113/63
== END 2019-10-13 13:15 | disposition home or self-care (01) ==
LOC: EDUNIT# 11:26 → ER 11:27
DX: N18.9 Chronic kidney disease, unspecified (principal); N39.0 Urinary tract infection, site not specified; I48.91 Unspecified atrial fibrillation; I25.2 Old myocardial infarction; I25.10 Atherosclerotic heart disease of native coronary artery without angina pectoris; G20 Parkinson's disease; F02.80 Dementia in other diseases classified elsewhere, unspecified severity, without behavioral disturbance, psychotic disturbance, mood disturbance, and anxiety; F41.9 Anxiety disorder, unspecified; R40.2142 Coma scale, eyes open, spontaneous, at arrival to emergency department; R40.2252 Coma scale, best verbal response, oriented, at arrival to emergency department; R40.2362 Coma scale, best motor response, obeys commands, at arrival to emergency department; Z87.442 Personal history of urinary calculi; Z95.0 Presence of cardiac pacemaker; Z87.01 Personal history of pneumonia (recurrent); Z79.01 Long term (current) use of anticoagulants; Z79.82 Long term (current) use of aspirin; Z95.1 Presence of aortocoronary bypass graft; Z82.49 Family history of ischemic heart disease and other diseases of the circulatory system; W19.XXXA Unspecified fall, initial encounter; Y92.129 Unspecified place in nursing home as the place of occurrence of the external cause
CPT/HCPCS: 36415; 70450; 71045; 72125; 80048; 81000; 85025; 85610; 87077; 87088; 87186

== ENCOUNTER 2019-10-22 11:15 | Emergency (ER) | payer MEDICARE, OTHER ==
[~2019-10-22] VITALS: Ht 180 cm; Wt 77.0 kg
[~2019-10-22 11:15] MED LIST changes: +CEFU250T80 PO
--- NOTE | 2019-10-22 11:36 | NUR ---
HAS DECLINED TO HAVE CT DONE
--- NOTE | 2019-10-22 11:44 | ED Fall/Injury ---
General Chief Complaint: Trauma-Non Activation Stated Complaint: FALL History of Present Illness Date Seen by Provider: Oct 22, 2019 Time Seen by Provider: 11:15 Initial Comments 84-year-old male from [facility], presents via EMS after an unwittnessed fall in his room. They believe he fell foreward out of his recliner. There was no LOC, vomiting, seizure, bleeding, change in mental status or other concerns. They aren't sure if he hit his head on the bed or wall. Superficial erythema to left forehead. Patient denies any complaints of head, neck, back or extremity pain. [place] contacted PCP and requested he be transferred to ED for CT Head. He had a CT on 10/13/19 for a fall. History of dementia and Parkinson. He is a DO NOT RESUSCITATE. Occurred: just prior to arrival Injuries/Pain Location: face Context: unknown Loss of Consciousness: no loss of consciousness Associated Symptoms (Fall): Denies Symptoms Allergies and Home Medications Allergies Coded Allergies: No Known Drug Allergies (Unverified , 11/18/12) Home Medications Aspirin 81 Mg Tablet.dr, 81 MG PO DAILY, (Reported) Atorvastatin Calcium 40 Mg Tablet, 40 MG PO HS, (Reported) Calcium/Magnesium/Zinc 1 Each Tablet, 1 TAB PO DAILY, (Reported) Cefdinir 300 Mg Capsule, 300 MG PO BID Prescribed by: NIA SELLERS on 05/19/19 1259 Cefuroxime Axetil 250 Mg Tablet, 250 MG PO BID Prescribed by: NIA SELLERS on 10/13/19 1253 Furosemide 40 Mg Tablet, 40 MG PO TuThSa, (Reported) Metoprolol Tartrate 100 Mg Tablet, 100 MG PO BID, (Reported) Multivit-Min/FA/Lycopene/Lut 1 Each Tablet, 1 TAB PO DAILY, (Reported) [place] 3 Polyunsat Fatty Acids 1,000 Mg Cap, 1,000 MG PO DAILY, (Reported) Pantoprazole Sodium 40 Mg Tablet.dr, 40 MG PO DAILY, (Reported) Risperidone 0.5 Mg Tablet, 0.75 MG PO BID, (Reported) TAKE 1 & 1/2 (0.5MG) TABLET Sertraline HCl 50 Mg Tablet, 50 MG PO 1600, (Reported) Spironolactone 25 Mg Tablet, 25 MG PO BID, (Reported) Warfarin Sodium 2.5 Mg Tablet, 1.25 MG PO MoFr@2100, (Reported) TAKES 1/2 (2.5MG) TABLET Warfarin Sodium 2.5 Mg Tablet, 2.5 MG PO SuTuWeThSa@2100, (Reported) Patient Home Medication List Home Medication List Reviewed: Yes Review of Systems Review of Systems Constitutional: no symptoms reported Musculoskeletal: no symptoms reported, see HPI; No back pain, No joint pain, No neck pain All Other Systems Reviewed Negative Unless Noted: Yes Past Cuejlpn-Lpbwwg-Lrvxyd Hx Past Med/Social Hx: Reviewed Nursing Past Med/Soc Hx Patient Social History 2nd Hand Smoke Exposure: No Recent Foreign Travel: No Contact w/Someone Who Travel: No Recent Hopitalizations: No Immunizations Up To Date Tetanus Booster (TDap): More than 5yrs PED Vaccines UTD: No Date of Pneumonia Vaccine: May 31, 2016 Date of Influenza Vaccine: May 31, 2015 Seasonal Allergies Seasonal Allergies: No Past Medical History Surgeries: No CABG Respiratory: Yes Pneumonia Currently Using CPAP: No Currently Using BIPAP: No Cardiac: Yes (PACE MAKER) Atrial Fibrillation, Coronary Artery Disease, Heart Attack Neurological: Yes (PARKINSON) Dementia, Parkinson's Disease Reproductive Disorders: No Sexually Transmitted Disease: No HIV/AIDS: No Genitourinary: Yes Kidney Stones, Renal Failure Gastrointestinal: No Musculoskeletal: Yes Arthritis Endocrine: No HEENT: Yes Cataract Hearing Impairment: Denies Cancer: No Psychosocial: Yes Sleep Difficulties, Anxiety Integumentary: No Blood Disorders: No Family Medical History Hypertension 19 FATHER 19 MOTHER Osteoporosis Pneumococcal pneumonia G8 BROTHER, Physical Exam Vital Signs Vital Signs - First Documented 10/22/19 11:38 Temp 35.0 Pulse 71 Resp 18 B/P (MAP) 134/83 (100) Pulse Ox 97 Capillary Refill : Height, Weight, BMI Height: 5'8.00" Weight: 200lbs. 0.0oz. 90.806327ja; 25.00 BMI Method:Stated General Appearance: WD/WN, no apparent distress HEENT: PERRL/EOMI, normal ENT inspection, TMs normal, pharynx normal, other (head normocephalic with 3x1 cm area of trace erythema to left or headache, no skin abrasion or bleeding, no swelling or tenderness to palpation.) Neck: non-tender, full range of motion, supple, normal inspection Cardiovascular: normal peripheral pulses, regular rate, rhythm, no edema Respiratory: chest non-tender, lungs clear, normal breath sounds, no respiratory distress Gastrointestinal: normal bowel sounds, non tender, soft Extremities: normal range of motion (non painful PROM), normal inspection, no pedal edema, no calf tenderness, normal capillary refill 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 Will complete CT. 1130 arrived, discussed plan with her. She does not believe a CT is needed, since he is DNR, age, assessment, and she would not proceed with any surgical intervention. He continues to have no complaints of pain or needs. She said there is no change in his baseline status. 1145 spoke to Micaela Quevedo APRN and [facility] [place] staff, explained did not wish for him to have CT and we will plan d/c to have neuro assessments at [place]. 1205 patient continues to have no indications for CT, talking to , following simple commands. [place] here to transport back to facility. Required max assist to transfer, but this is baseline, as he is not ambulatory or weight bearing. Discharge instructions and return precautions reviewed with his and staff. Departure Impression Primary Impression: Fall Qualified Codes: W19.XXXA - Unspecified fall, initial encounter Additional Impression: Contusion of forehead Qualified Codes: S00.83XA - Contusion of other part of head, initial encounter Disposition: 01 HOME, SELF-CARE Condition: Stable Departure-Patient Inst. Decision time for Depature: 11:40 Referrals: GLADYS TOLBERT MD (PCP/Family) Primary Care Physician Patient Instructions: Minor Head Injury (DC), Preventing Falls in the Older Adult Add. Discharge Instructions: Neuro Checks every hour for the next 8 hours, then every 4 hours. Notify primary care provider if change in neuro assessment. Monitor patient closely to prevent falls. Tylenol 650 mg every 6-8 hours for headache or pain. Activity and diet, as tolerated. Return to Emergency Dept for new, urgent health care needs. All discharge instructions reviewed with patient and/or family. Voiced understanding. Copy Copies To 1: MICAELA QUEVEDO APRN, AMY ARNP Oct 22, 2019 11:44
[2019-10-22 11:45] VITALS: BP 134/83
== END 2019-10-22 12:10 | disposition home or self-care (01) ==
LOC: EDUNIT# 11:16 → ER 11:17
DX: S00.83XA Contusion of other part of head, initial encounter (principal); I48.91 Unspecified atrial fibrillation; I25.2 Old myocardial infarction; I25.10 Atherosclerotic heart disease of native coronary artery without angina pectoris; F41.9 Anxiety disorder, unspecified; G20 Parkinson's disease; F02.80 Dementia in other diseases classified elsewhere, unspecified severity, without behavioral disturbance, psychotic disturbance, mood disturbance, and anxiety; Z79.82 Long term (current) use of aspirin; Z79.01 Long term (current) use of anticoagulants; Z95.1 Presence of aortocoronary bypass graft; W19.XXXA Unspecified fall, initial encounter
CPT/HCPCS: 99282